=== PATIENT | male | born 1950 | race Caucasian/White ===

== ENCOUNTER 2019-03-08 12:20 | Day surgery (SDC) | payer MEDICARE, OTHER, SELFPAY ==
[2019-03-01 10:36] VITALS: BP 185/87; PULSE 62; RESP 16; TEMP 36.3; O2SAT 97; BMI 35.6
[2019-03-01 11:07] LABS: Hematocrit 37.4 % (40-54); Hemoglobin 12.4 g/dL (13.0-16.5); Mean Corp Hgb Conc 33.2 g/dL (32-36); Mean Corpuscular Hgb 28.5 pg (27.0-32.0); Mean Platelet Vol. 9.9 fl (6.2-12.0); Platelet Count 210 K/mm3 (150-450); RBC Distribution Width CV 14.2 % (11.6-14.6); RBC Distribution Width SD 44.3 fl (35.1-43.9); Red Blood Count 4.35 M/mm3 (4.6-6.2); White Blood Count 5.8 K/mm3 (4.4-11.0)
[2019-03-01 11:27] LABS: Anion Gap 7 (5-15); BUN 15 mg/dL (7-18); BUN/Creat Ratio 12.1 RATIO (10-20); Calcium,Total 9.6 mg/dL (8.5-10.1); Chloride 100 mmol/L (98-107); Creatinine, Serum 1.24 mg/dL (0.70-1.30); EST Glomerular Filtration Rate 61 mL/min (>60); Est Glom Filt Rate - Afr Amer 74 mL/min (>60); Glucose 97 mg/dL (74-106); Potassium 4.1 mmol/L (3.5-5.1); Sodium Level 136 mmol/L (136-145)
[2019-03-01 11:32] LABS: Hemoglobin A1c 7.3 % (4.2-6.3)
[2019-03-08] VITALS (9 sets, daily range): BP systolic 140–182; BP diastolic 68–92; PULSE 56–97; RESP 16–20; TEMP 36.2–37; O2SAT 92–100; BMI 35.6
[2019-03-08] MEDS: Lactated Ringers 1,000 ML 100 ML IV ×2 (12:55→17:03)
[2019-03-08 13:15] LABS: Bedside Glucose 86 mg/dL (70-110)
--- NOTE | 2019-03-08 15:23 | PCM.DC ---
- Discharge Diagnoses Current Active Problems: BPH with obstruction prosthetic scar tissue Reason(s) for Visit for Discharge Instructions: TURP You will use the following diet at home:: Regular Your food should be the consistency of: Regular Discharge Activity: Return to Normal Activity Instructions: Transurethral Resection of the Prostate (TURP): Home Recovery Allergies/Adverse Reactions: Allergies Fbuhsom-Hvs-Dvg Reductase Inhibitor Allergy (Unknown, Verified 03/08/19 12:56) Unknown Sulfa (Sulfonamide Antibiotics) Allergy (Unknown, Verified 03/08/19 12:56) Unknown levothyroxine sodium [From Synthroid] Allergy (Verified 03/08/19 12:56) mouth sores,diarrhea,stomach cramps morphine Adverse Reaction (Verified 03/08/19 12:56) Nausea/Vom/Diarrhea Medications to take at Discharge Gabapentin [Neurontin] 300 mg PO TID 12/30/15 Hydrochlorothiazide [Hctz] 50 mg PO DAILY 12/30/15 Losartan Potassium [Cozaar] 100 mg PO DAILY 12/30/15 Metoprolol Tartrate [Lopressor (Beta Lisa)] 12.5 mg PO QHS 12/30/15 glipiZIDE [Glucotrol] 5 mg PO BID 12/30/15 metFORMIN HCl [Glucophage] 1,000 mg PO BIDCM 12/30/15 aspirin 81 mg tablet,delayed release 81 mg PO QDAY 08/25/17 cholecalciferol (vitamin D3) 1,000 unit capsule 1,000 unit PO QDAY 08/25/17 mecobalamin (vitamin B12) 1,000 mcg disintegrating tablet,sublingual 1,000 mcg SUBLINGUAL QDAY 08/25/17 thyroid (pork) 60 mg tablet 60 mg PO MO 08/25/17 Lecithin, Soy [Lecithin] 400 mg PO DAILY 03/01/19 Naproxen Sodium [Aleve] 220 mg PO PRN PRN 03/01/19 Thyroid,Pork [[place] Thyroid] 120 mg PO SUTUWETHSA 03/01/19 Vitamin B Complex 1 ea PO DAILY 03/01/19 Ciprofloxacin [Cipro] 500 mg PO BID #14 tab 03/08/19 The following prescriptions were given: Ciprofloxacin [Cipro] 500 mg PO BID #14 tab Transmission Status: Pending to [facility] Primary Care Physician: Agustin Davenport MD [Primary Care Provider] - Test Results: Test results from this visit will be discussed in further detail at your follow-up appointment, if applicable. Please Follow Up With: Eugene Foreman MD When: 2 weeks.
[2019-03-08] MEDS: Cefazolin 2 GM in 0.9% Normal Saline 100 ML IV (15:33)
[2019-03-08] MEDS: Lubricating Jelly 60 GM Tube 30 GM TOPICAL (15:47)
--- NOTE | 2019-03-08 15:50 | PROS_PTH ---
PATIENT: DANI SHETH LOC: [facility] [place] U#:[id number] AGE/SX: 68/M ROOM: RE03/08/[address]: Dr. Eugene Foreman MD : [id number] BED: DIS: 03/09/2019 SPEC #: [id number] RECD: 03/09/19 09:03 STATUS: BIB JOSIE #: [id number] CLAUDIA: 03/08/19 15:[address]: Eugene Foreman DEPT: SURGICAL PATHOLOGY RECD BY: Johnny Carey ENTERED: 03/09/19 11:35 SP TYPE: TURP ALEXANDRE DR: Dr. Agustin Davenport MD Tissues: Prostate, NOS Procedures: Surgery Specimen Level IV HEADER OPERATION: Cystoscopy, TUR of prostate, [facility] PRE-OP DIAGNOSIS: BPH with lower urinary tract symptoms; incomplete bladder emptying; malignant neoplasm of lateral wall of bladder TISSUE SUBMITTED: Prostate tissue MICROSCOPIC DIAGNOSIS Prostate, transurethral resection: Benign nodular hyperplasia, glandular and stromal types. Chronic prostatitis. AM:yanira 03/10/19 MICROSCOPIC DESCRIPTION Slides are reviewed. GROSS DESCRIPTION Received is one container labeled with the patient's name and designated prostate tissue. The specimen consists of multiple irregular fragments of pink-castillo, rubbery, soft tissue that in aggregate weigh 19.4 gm and measure in aggregate 6 x 5 x 2.5 cm. Flight Teacher tissue is submitted in 12 cassettes. / SJ:yanira 03/09/19 TC:3 CPT: 54904
--- NOTE | 2019-03-08 16:45 | PCM.OPRPT ---
Report of Operation Date of Procedure: 03/08/19 Pre-Operative Diagnosis: BPH with obstruction Post-Operative Diagnosis: The same Surgery/Procedure Performed:: Transurethral resection of the prostate Description of Surgical Findings:: 68-year-old male taken back to the operating room after smooth induction of general anesthesia he was placed in dorsolithotomy position. Penis and testicles were prepped and draped in usual sterile fashion he has a history of a cystoscopy at the [facility] and they report that he had a false channel. Today I prepped and draped the penis in sterile fashion in the bladder with a 21 [place] rigid cystourethroscope and certainly enough which he passed through the membranous urethra is normal, bulbar urethra is normal sphincter was intact evaluate the verumontanum and there is a posterior fossa channel going below the verumontanum below the prostatic lobes and there is a bridging of the prostate tissue in the middle and then going above the bridge to go above the prosthetic tissue up over that into the bladder had significant obstruction and hypertrophy. So after doing the inspection I did look in the bladder with a 30 and 70 degree lens no tumors were seen within the bladder. I then switched over to the continuous-flow 26 [place] resectoscope and started resecting I resected first resected above the bridge between the bridging tissue of the left and right adenomatous tissue I resected this bridge clear until gone to the verumontanum I then marked the verumontanum and then resected the right lobe of the prostate and then resect the left lobe of the prostate it was a very large prostate along prostate fairly large resection after resected a significant amount of tissue I then looked at the sphincter still had some BPH blocking tissue at the sphincter area so I resected this and after I got this resected and the sphincter came together nicely had a nice intact sphincter nice open channel all the way up into the bladder we did a flow test had a good flow I then obtained hemostasis. All the chips were removed on the bladder. Put a three-way catheter in the bladder and continuous bladder irrigation and is taken back to the PACU in good condition. Also at the end of the case inspected the bladder and both the left and right ureter orifice were uninjured during the surgery. Type of Anesthesia:: General Drains: 22fr 3 way - Admit VTE Documentation VTE Present on Admission: No VTE Mechan Device Prophylaxis: SCD's
[2019-03-08 17:40] LABS: Bedside Glucose 71 mg/dL (70-110)
[2019-03-08 18:35] LABS: Bedside Glucose 109 mg/dL (70-110)
[2019-03-08] MEDS: 0.9% Normal Saline 1,000 ML 75 ML IV (19:23)
[2019-03-08] MEDS: Ciprofloxacin 400 MG/200 ML BAG 200 MG IV (22:31)
[2019-03-08] MEDS: Docusate Sodium 100 MG Capsule PO (22:31)
[2019-03-08] MEDS: Gabapentin 300 MG Capsule PO (22:31)
[2019-03-08] MEDS: Metoprolol Tartrate 25 MG Tablet 12.5 MG PO (22:31)
[2019-03-08 22:45] LABS: Bedside Glucose 170 mg/dL (70-110)
[2019-03-09 05:38] VITALS: BP 150/76; PULSE 48; RESP 18; TEMP 36.6; O2SAT 97
[2019-03-09] MEDS: Gabapentin 300 MG Capsule PO (05:41)
[2019-03-09] MEDS: Thyroid 60 MG Tablet 120 MG PO (05:42)
[2019-03-09 08:03] VITALS: BP 167/79; PULSE 56; RESP 18; TEMP 36.3; O2SAT 100
[2019-03-09] MEDS: metFORMIN HCl 1,000 MG Tablet 1000 MG PO (08:21)
[2019-03-09] MEDS: Docusate Sodium 100 MG Capsule PO (08:23)
[2019-03-09] MEDS: Losartan Potassium 100 MG Tablet PO (08:23)
[2019-03-09] MEDS: glipiZIDE 5 MG Tablet PO (08:24)
[2019-03-09] MEDS: Pantoprazole Sodium 40 MG Tablet PO (08:24)
[2019-03-09] MEDS: Ciprofloxacin 400 MG/200 ML BAG 200 MG IV (09:42)
== END 2019-03-09 11:40 | disposition home or self-care (01) ==
LOC: SDC 12:21 → AC 12:36 → MS2 16:48
PROVIDERS: Anesthesiology; Family Provider Family Medicine; PCP Family Medicine; Referring Provider Urology; Visit Provider Urology
PROC: (CPT 52601; principal; 2019-03-08 15:40)
DX: N40.1 Benign prostatic hyperplasia with lower urinary tract symptoms (principal); R39.14 Feeling of incomplete bladder emptying; N13.8 Other obstructive and reflux uropathy; C67.2 Malignant neoplasm of lateral wall of bladder; N41.1 Chronic prostatitis; I25.10 Atherosclerotic heart disease of native coronary artery without angina pectoris; I10 Essential (primary) hypertension; E11.9 Type 2 diabetes mellitus without complications; Z95.1 Presence of aortocoronary bypass graft; G47.33 Obstructive sleep apnea (adult) (pediatric); M79.7 Fibromyalgia; G25.81 Restless legs syndrome
CPT/HCPCS: 52601; 80048; 82962; 83036; 84443; 85027; 88305; 99251; J7030; J7120; G0463; J0744; J2405

== ENCOUNTER → 2019-03-23 18:24 | Outpatient (CLI) | payer MEDICARE, OTHER, SELFPAY ==
[2019-03-08 18:05] VITALS: BMI 35.6
== END ==
PROVIDERS: Family Provider Family Medicine; PCP Family Medicine; Referring Provider Nurse Practitioner Adult Health
DX: R82.998 Other abnormal findings in urine (principal)
CPT/HCPCS: 87086; 87088

== ENCOUNTER → 2020-05-22 08:08 | Outpatient (CLI) | payer MEDICARE, OTHER, SELFPAY ==
[2019-03-08 18:05] VITALS: BMI 35.6
--- NOTE | 2020-05-22 08:13 | RAD_ITS ---
STUDY: AIR-CONTRAST UPPER GI SERIES. REASON FOR EXAM: Male, 70 years old. GERD, ABD PAIN? HX BLADDER CA., NUMEROUS ABD SURGERIES, PROSTATE SURGERY X 2 FLUOROSCOPY TIME (if supplied): ( 40 seconds ) minutes/seconds. 22 images were obtained. TECHNIQUE: The patient ingested barium. Imaging of the esophagus, stomach and duodenum was then obtained. COMPARISON: None. FINDINGS: The esophagus is unremarkable. There is no evidence of obstruction. No mass lesion is seen. There is no evidence of gastroesophageal reflux. The stomach and duodenum are unremarkable. No evidence of ulceration. RAD/Upper GI Dual Contrast IMPRESSION: Unremarkable air contrast upper GI series. Electronically Signed: Antony Figueroa MD at 9:36 EST , Service support ,
== END ==
PROVIDERS: PCP Family Medicine; Referring Provider Nurse Practitioner Adult Health; Visit Provider Nurse Practitioner Adult Health
DX: K21.9 Gastro-esophageal reflux disease without esophagitis (principal); R10.9 Unspecified abdominal pain
CPT/HCPCS: 74246

== ENCOUNTER → 2020-07-01 11:01 | Outpatient (CLI) | payer MEDICARE, OTHER, SELFPAY ==
[2019-03-08 18:05] VITALS: BMI 35.6
[2020-07-01 12:34] LABS: PSA,Total - Annual Screen 0.98 ng/mL (0.00-4.00)
== END ==
PROVIDERS: PCP Family Medicine; Referring Provider Urology; Visit Provider Urology
DX: Z12.5 Encounter for screening for malignant neoplasm of prostate (principal)
CPT/HCPCS: 36415; 84153; G0103

== ENCOUNTER 2020-10-20 18:37 | Inpatient (IN) | payer MEDICARE, OTHER, SELFPAY ==
[2020-10-20] VITALS (17 sets, daily range): BP systolic 98–192; BP diastolic 71–131; PULSE 58–135; RESP 12–30; TEMP 36.3–36.6; O2SAT 70–100; BMI 34.5; BMI 34.2
--- NOTE | 2020-10-20 18:43 | EKG12_ITS ---
Test Reason : DYSRHYTHMIA Blood Pressure : / mmHG Vent. Rate : 123 BPM Atrial Rate : 144 BPM P-R Int : 000 ms QRS Dur : 124 ms QT Int : 320 ms P-R-T Axes : 000 049 206 degrees QTc Int : 458 ms Atrial fibrillation with rapid ventricular response with premature ventricular or aberrantly conducte d complexes Left bundle branch block Abnormal ECG Confirmed by EFREN DORANTES, MEDARDO ([id number]), loan expeditor CECILIA AYON ([id number]) on 10/23/2020 1:20:01 PM Referred By: MATTHEW Confirmed By:MEDARDO SCHWARTZ MD
--- NOTE | 2020-10-20 18:45 | ED.VIS.DYS ---
HPI History of Present Illness Chief Complaint: Shortness of Breath Detail of Chief Complaint: Severe shortness of breath. Informant: patient and spouse/S.O. Onset/Context/Timing Onset: Today Context: sudden Timing: Continuous Quality: Positive for Orthopnea Current Severity: Severe Maximum Severity: Severe Worsened by: Lying flat Relieved by: Nothing Associated Symptoms cough Chest Pain: Positive for None Narrative Narrative: 70-year-old male in severe respiratory distress with a pulse ox in the mid to high 60s. He was admitted neatly placed on the monitor and oxygen. states he had an episode like this 2 days ago but it resolved so he did not come in today he became suddenly short of breath. Denies any chest pain. No fevers. No significant cough. No nausea or vomiting. No diarrhea or melena. He does have an extensive cardiac history with multiple MIs, cardiac stents and prior CABG. He also has diabetes and bladder cancer. He is never had a DVT or PE. No recent risk factors. No recent hospitalization. PE Risk Factors: Negative for Cancer, OCP + Smoking + > 35, Prior DVT or PE, Recent immobilization, Recent surgery and Recent travel Prior similar symptoms: No Recent Illness/Hospitalization: No PFSH PFSH Home Medications aspirin 81 mg PO DAILY 10/20/20 [History Last Taken Unknown] cholecalciferol (vitamin D3) [Vitamin D3] 25 mcg PO DAILY 10/20/20 [History Last Taken Unknown] gabapentin 600 mg PO QHS 10/20/20 [History Last Taken Unknown] glipizide 20 mg PO DAILY 10/20/20 [History Last Taken Unknown] lecithin 1,200 mg PO DAILY 10/20/20 [History Last Taken Unknown] losartan 150 mg PO DAILY 10/20/20 [History Last Taken Unknown] metformin 1,000 mg PO BID 10/20/20 [History Last Taken Unknown] metoprolol tartrate 25 mg PO DAILY 10/20/20 [History Last Taken Unknown] pantoprazole 40 mg PO DAILY 10/20/20 [History Last Taken Unknown] thyroid (pork) [[place] Thyroid] 120 mg PO DAILY 10/20/20 [History Last Taken Unknown] vitamin [id number] acid 1 tab PO DAILY 10/20/20 [History Last Taken Unknown] Allergy/AdvReac Type Severity Reaction Status Date / Time No Known Allergies Allergy Verified 10/20/20 18:42 Social History Smoking Status: Never smoker ROS ROS ED ROS Narrative No recent illness. Review of Systems ROS Unobtainable: Denies due to encephalopathy Constitutional Constitutional ED: Denies chills or fever(s) Eyes Eyes: Denies change in vision ENT ENT ED: Denies ear pain or sore throat Cardiovascular Cardiovascular: Reports orthopnea; Denies chest pain Respiratory/Chest Respiratory/Chest: Reports cough, dyspnea and orthopnea; Denies dyspnea on exertion or sputum Gastrointestinal Gastrointestinal: Denies abdominal pain, diarrhea, nausea or vomiting Genitourinary Genitourinary ED: Denies dysuria or hematuria Musculoskeletal Musculoskeletal: Denies myalgias Integumentary Denies rash Neurologic Neurologic: Denies headache(s) Psychiatric Psychiatric: Denies depression Endocrine Endocrinology: Denies polyuria Hematologic/Lymphatic Hematologic/Lymphatic: Denies easy bruising Allergic/Immunologic Allergic/Immunologic ED: Denies urticaria EXAM Physical Exam Narrative Exam Narrative: Older male severe respiratory distress. Initial blood pressure 137/131. He is diaphoretic. He is pale. at bedside. H EENT exam unremarkable. Neck nontender. Lungs Rales throughout both sides consistent with CHF. Heart tachycardic 135. Abdomen soft nontender normal bowel sounds no peritoneal signs. Skin pale diaphoretic. Extremities moves all 4. No edema. No calf tenderness. Neurologically is awake alert moving all 4 extremities. Const Vital Signs: 10/20/20 18:38 10/20/20 18:40 10/20/20 18:47 Temperature 98 F 98 F Temperature Source Temporal Temporal Pulse Rate 135 H 113 H Respiratory Rate 29 H 30 H Respiratory Effort Short of Breath Respiratory Depth Deep Respiratory Pattern Tachypnea Blood Pressure 137/131 H 137/131 H Blood Pressure Mean 133 133 Pulse Ox 70 82 95 Oxygen Delivery Method Room Air Room Air Bi-pap Fraction of Inspired Oxygen (FIO2) 100 10/20/20 19:04 10/20/20 19:10 10/20/20 19:16 Temperature Temperature Source Pulse Rate 126 H 121 H Respiratory Rate 28 H Respiratory Effort Respiratory Depth Respiratory Pattern Blood Pressure 192/112 H 147/106 H 156/110 H Blood Pressure Mean 138 119 125 Pulse Ox 96 95 Oxygen Delivery Method Bi-pap Bi-pap Fraction of Inspired Oxygen (FIO2) 100 10/20/20 19:20 10/20/20 19:39 10/20/20 19:46 Temperature Temperature Source Pulse Rate 110 H 81 73 Respiratory Rate 24 H 23 H 23 H Respiratory Effort Respiratory Depth Respiratory Pattern Blood Pressure 159/111 H 98/76 128/71 H Blood Pressure Mean 127 83 90 Pulse Ox 99 95 Oxygen Delivery Method Bi-pap Bi-pap Fraction of Inspired Oxygen (FIO2) 90 75 10/20/20 20:01 Temperature Temperature Source Pulse Rate 71 Respiratory Rate 24 H Respiratory Effort Respiratory Depth Respiratory Pattern Blood Pressure 121/81 H Blood Pressure Mean 94 Pulse Ox 96 Oxygen Delivery Method Bi-pap Fraction of Inspired Oxygen (FIO2) 70 Positive well nourished and well developed General Appearance ED: well developed HEENT Reports moist mucous membranes atraumatic; Negative for trauma or tenderness Eyes PERRL and EOMs intact bilaterally Neck no lymphadenopathy, supple, no meningeal signs and no JVD General: Negative for tenderness Resp Auscultation: rales Cardio Cardio Narrative: Respiratory distress. Excessive respiratory rate. Rales bilaterally. GI non-tender, non-distended and no masses Auscultation: normoactive bowel sounds Palpation: soft; Negative for tender Back/Spine normal to inspection; Negative for no CVA tenderness Extremity normal to inspection General Extremety ED: Negative for edema or tenderness General Extremity: Negative for edema Neuro oriented x3 Sensorium / Orientation: alert, oriented to person, oriented to place and oriented to time Motor Exam: strength 5/5 throughout Psych mental status grossly normal Skin Skin Narrative: Pale and diaphoretic. Lesions: no lesions Rashes: no rashes MDM MDM MDM Narrative Medical decision making narrative: Patient hypoxic in severe respiratory distress. Exam and history consistent with CHF. Cardiac work-up is being pursued. He is being placed on BiPAP. After reviewing his chest x-ray has been given 60 of Lasix will be started on nitroglycerin drip. Multiple repeat exams patient continues to improve on BiPAP. He was started on nitroglycerin drip. He was given IV Lasix. He was also given 1 dose of Cardizem which converted him from A. fib RVR to sinus rhythm. He is doing much better. The nitro drip was stopped when his blood pressure systolically was around 100. Patient is much much improved. He will be admitted to the ICU. Impressions: Acute congestive heart failure Respiratory failure Hypoxia History of AL, CAD, CABG, cardiac stents History of diabetes Critical care time 40 minutes. Lab Data Attestation: I reviewed the patient's lab results. Lab results narrative: CBC White count of 15. Hemoglobin 15. Chemistries unremarkable gap elevated 16 creatinine 1.64. Troponin elevated 848 BNP elevated 766. Consistent with CHF Labs: Laboratory Results - last 24 hr 10/20/20 10/20/20 10/20/20 18:47 18:47 18:47 WBC 15.1 H RBC 5.71 Hgb 15.3 Hct 49.3 MCV 86.3 MCH 26.8 L MCHC 31.0 L RDW Std Deviation 47.7 H RDW Coeff of Dexter 15.3 H Plt Count 276 MPV 11.4 Immature Gran % (Auto) 0.100 Neut % (Auto) 39.5 L Lymph % (Auto) 48.9 H [place] % (Auto) 10.0 Eos % (Auto) 1.0 Baso % (Auto) 0.5 Absolute Neuts (auto) 6.0 Absolute Lymphs (auto) 7.39 H Nucleated RBC % 0 Differential Comment SCANNED Diff Path Review May foll PT INR APTT Sodium 138 Potassium 4.1 Chloride 103 Carbon Dioxide 19.0 L Anion Gap 16 H BUN 14 Creatinine 1.64 H Estim Creat Clear Calc 41.31 Est GFR (MDRD) Af Amer 53 L Est GFR (MDRD) Non-Af 44 L BUN/Creatinine Ratio 8.5 L Glucose 262 H Calcium 9.4 Troponin I High Sens 840.7 H* B-Natriuretic Peptide 766.7 H 10/20/20 10/20/20 18:55 18:55 WBC RBC Hgb Hct MCV MCH MCHC RDW Std Deviation RDW Coeff of Dexter Plt Count MPV Immature Gran % (Auto) Neut % (Auto) Lymph % (Auto) [place] % (Auto) Eos % (Auto) Baso % (Auto) Absolute Neuts (auto) Absolute Lymphs (auto) Nucleated RBC % Differential Comment Diff Path Review PT 12.8 INR 1.0 APTT 23.3 L Sodium Potassium Chloride Carbon Dioxide Anion Gap BUN Creatinine Estim Creat Clear Calc Est GFR (MDRD) Af Amer Est GFR (MDRD) Non-Af BUN/Creatinine Ratio Glucose Calcium Troponin I High Sens B-Natriuretic Peptide Radiography Chest X-Ray - ED: 1 View, Read by ED Physician and CHF Diagnostic Testing: Radiology Impression Chest X-Ray 10/20/20 18:48 IMPRESSION: Diffuse bilateral interstitial and airspace opacities may represent edema and/or infection. Borderline cardiomegaly. Electronically Signed: Clemente Hernandez MD at 19:18 EDT Tel , Service support , Consistent with congestive heart failure Rhythm Strip Rhythm Strip: A-fib Rate: 135 EKG Initial EKG: Attestation: I personally reviewed and interpreted this EKG as follows: Interpretation: No Acute Injury Pattern, Atrial Fibrillation and LBBB Comments: Acute atrial fibrillation with rapid ventricular rate with aberrantly conducted complexes. Left bundle branch block. Critical Care Time Critical Care Time: Yes Critical care time (excluding procedures): 30-74 minutes, Including time spent:, Discussing w/Patient &/or Family/Primary Products Inspectors, Discussing w/Consultants, Arranging Admission or Transfer and Performing Direct Patient Care at Bedside Discharge Plan Triage Chief Complaint: Shortness of Breath ED Provider: Jose R Mccrary Dx/Rx/DC Orders Prescriptions: No Action lecithin 1,200 mg Capsule 1,200 mg PO DAILY RF: 0 glipizide 10 mg Tablet 20 mg PO DAILY RF: 0 pantoprazole 40 mg Tablet,Delayed Release (Dr/Ec) 40 mg PO DAILY RF: 0 metformin 1,000 mg Tablet 1,000 mg PO BID RF: 0 gabapentin 300 mg Capsule 600 mg PO QHS RF: 0 aspirin 81 mg Tablet 81 mg PO DAILY RF: 0 losartan 100 mg Tablet 150 mg PO DAILY RF: 0 metoprolol tartrate 25 mg Tablet 25 mg PO DAILY RF: 0 cholecalciferol (vitamin D3) [Vitamin D3] 25 mcg (1,000 unit) Tablet 25 mcg PO DAILY RF: 0 thyroid (pork) [[place] Thyroid] 60 mg Tablet 120 mg PO DAILY RF: 0 vitamin A86-imotp acid 500-400 mcg Tablet 1 tab PO DAILY RF: 0 Primary Care Provider: Elver Rosario Disposition Disposition: Home, Self Care
--- NOTE | 2020-10-20 18:48 | RAD_ITS ---
INDICATION: chest pain EXAMINATION/TECHNIQUE: X-RAY - XR Chest 1 View COMPARISON: None. FINDINGS: Diffuse bilateral interstitial and airspace opacities. Sternal cerclage wires and vascular clips are present from a prior sternotomy and coronary artery bypass graft procedure (CABG). The heart is borderline enlarged. No pleural effusion or pneumothorax. No acute osseous abnormalities. Partially visualized left shoulder arthroplasty. RAD/Chest 1 View (Portable) IMPRESSION: Diffuse bilateral interstitial and airspace opacities may represent edema and/or infection. Borderline cardiomegaly. Electronically Signed: Clemente Hernandez MD at 19:18 EDT Tel , Service support ,
[2020-10-20] MEDS: Furosemide 100 MG/10 ML Vial 60 MG IV (18:58)
[2020-10-20 19:05] LABS: Absolute Lymphocyte Count 7.39 X10^3/uL (0.83-4.51); Basophil# 0.07 X10^3/uL; Basophil% 0.5 % (0-1); Eosinophil# 0.15 X10^3/uL; Hematocrit 49.3 % (40-54); Hemoglobin 15.3 g/dL (13.0-16.5); Lymphocyte # 7.39 X10^3/ul (0.83-4.51); Lymphocyte % 48.9 % (19-41); Mean Corpuscular Hgb 26.8 pg (27.0-32.0); Mean Corpuscular Volume 86.3 fL (80-94); Mean Platelet Vol. 11.4 fl (6.2-12.0); Monocyte# 1.51 X10^3/uL; NRBC Flagged by Analyzer 0 % (0-5); Neutrophil # 5.98 X10^3/uL (2.7-7.7); Neutrophil % 39.5 % (47-70); POSITIVE DIFFERENTIAL YES; POSITIVE MORPHOLOGY YES; Platelet Count 276 K/mm3 (150-450); RBC Distribution Width CV 15.3 % (11.6-14.6); RBC Distribution Width SD 47.7 fl (35.1-43.9); Red Blood Count 5.71 M/mm3 (4.6-6.2); White Blood Count 15.1 K/mm3 (4.4-11.0)
[2020-10-20] MEDS: Nitroglycerin Infusion 250 ML 6 MG CONT INF (19:06)
[2020-10-20 19:10] LABS: Prothrombin Time (Protime)PT. 12.8 SECONDS (11.7-14.9)
[2020-10-20 19:12] LABS: BNP,B-Type NATRIURETIC PEPTIDE 766.7 pg/mL (0-100)
[2020-10-20 19:18] LABS: Differential Indicated SCAN CRITERIA MET
[2020-10-20 19:21] LABS: Anion Gap 16 (5-15); BUN 14 mg/dL (7-18); BUN/Creat Ratio 8.5 RATIO (10-20); Calcium,Total 9.4 mg/dL (8.5-10.1); Chloride 103 mmol/L (98-107); Creatinine, Serum 1.64 mg/dL (0.70-1.30); EST Glomerular Filtration Rate 44 mL/min (>60); Est Glom Filt Rate - Afr Amer 53 mL/min (>60); Estimated Creatinine Clearance 41.31 ml/min; Glucose 262 mg/dL (74-106); Potassium 4.1 mmol/L (3.5-5.1); Sodium Level 138 mmol/L (136-145)
[2020-10-20] MEDS: dilTIAZem 25 MG/5 ML Vial 20 MG IV BOLUS (19:26)
--- NOTE | 2020-10-20 19:41 | EKG12_ITS ---
Test Reason : REPEAT EKG Blood Pressure : / mmHG Vent. Rate : 076 BPM Atrial Rate : 076 BPM P-R Int : 212 ms QRS Dur : 100 ms QT Int : 438 ms P-R-T Axes : 060 012 137 degrees QTc Int : 492 ms Sinus rhythm with 1st degree A-V block ST & T wave abnormality, consider lateral ischemia Abnormal ECG Confirmed by EFREN DORANTES, MEDARDO ([id number]), magazine editor CECILIA AYON ([id number]) on 10/23/2020 1:20:19 PM Referred By: MATTHEW Confirmed By:MEDARDO SCHWARTZ MD
[2020-10-20 19:53] LABS: Troponin-I HS 840.7 pg/mL (3.0-78.5)
[2020-10-20 20:02] LABS: Differential Comment SCANNED
--- NOTE | 2020-10-20 20:36 | PCM.HOSP.N ---
Addendum Addendum: ATTENDING PHYSICIAN NOTE: History and Physical: Chief Complaint: Dyspnea, nausea, dry heaves, diaphoresis. The patient is a 70 y/o M w/ PMHx: CAD s/p multiple PCI, Hx MIs, HTN, HLD, PRAKASH on CPAP q HS, Obesity, PAF, Hypothyroidism, GERD, Diabetes mellitus type II who presents to the [facility] ED on 10/20/20 w/ history of ongoing dyspnea starting the past Wednesday with episodes of severe dyspnea without cough resulting in nausea with dry heaves and diaphoresis however these seem to subside but again occurred prior to ED presentation noted to be more severe with respiratory distress with increased work of breathing accessory muscle usage prompting ED evaluation. Patient does note the episodes seem to be worse at night. Patient reports that these episodes do not appear to be related with exertion. He notes no recent weight gain or edema and has been able to lay flat. He does report with these episodes some chest discomfort described as midsternal pressure, 3-5 out of 10 in severity, denies upon current presentation. Allergies: No known drug allergies. Home medications: Vitamin B12/folic acid 1 tab p.o. daily Pantoprazole 40 mg p.o. daily Lecithin 1200 mg p.o. daily Metoprolol tartrate 25 mg p.o. daily Vitamin D3 25 mcg p.o. daily Thyroid [place] 120 mg p.o. daily Losartan 150 mg p.o. daily Glipizide 20 mg p.o. daily Metformin 1000 mg p.o. twice daily Gabapentin 600 mg p.o. nightly Social Hx: Patient resides with his , no tobacco use history, drinks 1-2 drinks including beer, wine or mixed drinks daily. PSurgHx: CABG x4, several PCI, bilateral shoulder rotator cuff repair, left shoulder total replacement, cholecystectomy, bilateral carpal tunnel surgery, TURP x2, bladder surgery, left rib tumor resection. Family Hx: Patient notes a maternal family history of asthma. Patient denies any marked paternal family history including heart disease, diabetes or cancer. Admission Review of Systems: CONSTITUTIONAL: No weight loss, fever, chills, + weakness or fatigue. HEENT: Eyes: No visual loss, blurred vision, double vision or yellow sclerae. Ears, Nose, Throat: No hearing loss, sneezing, congestion, runny nose or sore throat. SKIN: No rash or itching, lesions, wounds. CARDIOVASCULAR: + chest pain, chest pressure or chest discomfort, palpitations, No edema, orthopnea, syncopal events. RESPIRATORY: + shortness of breath, No cough or sputum, wheezing, hemoptysis. GASTROINTESTINAL: No anorexia, nausea, vomiting or diarrhea, abdominal pain, melena, BRBPR. GENITOURINARY: No dysuria, frequency, urgency or retention. NEUROLOGICAL: No headache, dizziness, syncope, paralysis, ataxia, numbness or tingling in the extremities, focal weakness, change in bowel or bladder control, seizure. MUSCULOSKELETAL: + muscle, back pain, joint pain or stiffness. HEMATOLOGIC: + anemia, bleeding or bruising. LYMPHATICS: No enlarged nodes. No history of splenectomy. PSYCHIATRIC: No history of depression or anxiety. ENDOCRINOLOGIC: No reports of sweating, cold or heat intolerance. No polyuria or polydipsia. ALLERGIES: No history of asthma, hives, eczema or rhinitis. Labs: CBC with WC 15.1, hemoglobin 15.3, platelet 276 with increased lymphocytes. Unremarkable coags BMP with carbon oxide 19, anion gap 16, BUN/creatinine 14/1.64, glucose 262 troponin high-sensitivity 840.7 BNP 766.7 Imaging: Chest x-ray with diffuse bilateral interstitial and airspace opacities suggestive of edema, flash pulmonary, borderline cardiomegaly. EKG: Initial EKG with atrial fibrillation with RVR with repeat following Cardizem with noted conversion to sinus rhythm with no acute evidence of ischemia. VS: Initial presentation with T 98, heart rate 135, BP 137/131 however did increase to 192/112 transiently, respiratory rate 20, initially 70% on room air with transition to BiPAP with most recent as noted conversion to sinus rhythm with heart rate 71, BP 121/81, respiratory rate 24, 96% on 70% BiPAP. Physical Examination: General: awake, alert, oriented x 3, less fatigued, BiPAP in place, remains cooperative, seated upright in the ED bed still increased work of breathing and evident respiratory distress but improving. Skin: normal color, normal turgor, no icterus, no cyanosis, sweating. HEENT: AT/NC, EOMI, PERRLA, dry MM, BiPAP in place, no obvious carotid bruits, difficult to assess JVD secondary to very thickened neck. Lungs: Diffusely diminished, Rales bilaterally mid to low bases, increased work of breathing, accessory muscle usage, evident distress, BiPAP in place although some improvement since initial ED presentation. Heart: Currently converted, regular rate and rhythm; no gallop, rub audible. Abdomen: soft, obese, NTTP, ND, distant normal BS, no obvious HSM but habitus makes examination difficult. Extremities: no cyanosis, clubbing, or edema. Neurological: patient awake, alert, oriented as noted; cognitive function improving, near baseline intact; pupils equally reactive to light and accomodation; cranial nerves II-XII grossly normal, moving all 4 extremities, no focal deficits, strength severely global decrease secondary to acute presentation. Psychiatric: affect appears fatigued, evident distress is noted, no acute evidence of depressive or anxiety feelings. Assessment and Plan: The patient is a 70 y/o M w/ PMHx: CAD s/p multiple PCI, Hx MIs, HTN, HLD, PRAKASH on CPAP q HS, Obesity, PAF, Hypothyroidism, GERD, Diabetes mellitus type II who presents to the [facility] ED on 10/20/20 w/ history of ongoing dyspnea starting the past Wednesday with episodes of severe dyspnea without cough resulting in nausea with dry heaves and diaphoresis however these seem to subside but again occurred prior to ED presentation noted to be more severe with respiratory distress with increased work of breathing accessory muscle usage prompting ED evaluation. 1. Acute Hypoxic Respiratory Failure secondary to Acute Decompensated CHF, Unclear Type with suspected flash pulmonary edema with elevated cardiac enzymes, suspected NSTEMI: Patient administered IV lasix in the ED, will admit to the ICU, maintain on BIPAP, maintain on cardiac telemetry, obtain cardiac enzyme series, obtain serial EKGs, continue IV lasix diuresis, monitor I/Os, maintain on intake restriction, continue medical therapy, obtain TSH and magnesium level, continue heparin drip. Obtian ECHO. Cardiology consulted, pending. Pattern Chart Writer consulted, pending. 2. Paroxysmal atrial fibrillation with RVR: EKG in ED w/ atrial fibrillation w/ RVR however eventually converted to sinus rhythm. Patient administered Cardizem bolus in ED. Will maintain on telemetry, obtain cardiac enzyme serial set, obtain magnesium level, obtain ECHO, obtain TSH level. CHADs scoring appropriate for anticoagulation start at this time w/ lovenox to coumadin bridge. We will continue patient metoprolol. Will administer heparin drip pending case management/social work evaluation for NOACs as given presentation as noted #1 may also require cardiac catheterization. Cardiology consulted, pending. 3. Hypertensive emergency: Associate with #1, #2, clinically improved, blood pressures improving, transiently on nitroglycerin which has been discontinued given usage of Cardizem bolus, pressure now 121/81, will continue patient home regimen, as needed IV hydralazine. Additional Co-morbidities: CAD: Status post CABG x4 and PCI, continue aspirin, heparin drip, metoprolol, losartan, not on statin therapy with FLP pending as noted. Hyperlipidemia: Continue home statin regimen. AM FLP. Diabetes mellitus type II with neuropathy: Hold oral home regimen, once respiratory status improved allow ADA diet, accu checks w/ ISS, continue patient home gabapentin regimen. Hypothyroidism: Continue home thyroid supplementation regimen, TSH pending. PRAKASH: BiPAP nightly however currently continuous given presentation as noted. Obesity: Weight loss and lifestyle changes encouraged. GERD: Continue PPI. DVT prophylaxis: SCDs, heparin drip as noted. CODE status: Patient GERMAIN is his son Zak and living will is currently in place. Discussed CODE status at length including difference between FULL code, DNR-CCA and DNR-CC status. Following discussions about the differences in these status, requested no CPR chest compressions but amenable to short-term intubation specifically per healthcare power of periodontist. Advanced Care Planning Face to Face Time: 16 minutes. Visit Charges Inpatient E&M: 23436 Init Hosp L3 Procedures Hospitalists Procedures: 83789 Advncd Care Plan 30 Min
[2020-10-20 20:57] LABS: Partial Thromboplast Time 23.3 Seconds (24.1-36.2)
--- NOTE | 2020-10-20 21:36 | ECHOCS_ITS ---
Reason For Study: CHF Procedure This was a 2D Doppler, Color Flow transthoracic echocardiogram. The study was technically difficult. Contrast injection was performed. Exam performed portable in ICU/CCU. Left Ventricle Mild segmental systolic dysfunction (see wall motion). The estimated ejection fraction is 45 %. Diastolic function is indeterminate. Mid-Inferior: Hypokinetic. Mid-inferoseptal : Hypokinetic. [place] : Hypokinetic. Right Ventricle Normal RV size. Normal systolic function. Atria Normal left atrium. Normal right atrium. No doppler evidence for ASD. Mitral Valve There is no mitral annular calcification. Normal mitral valve. Mild-Moderate (1-2+) mitral valve insufficiency. Tricuspid Valve Normal tricuspid valve. Trivial tricuspid valve insufficiency. Unable to estimate RV systolic pressure due to insufficient tricuspid regurgitant envelope. Aortic Valve Trisinus/trileaflet aortic valve. Mild focal aortic valve calcification. Mild (1+) aortic valve insufficiency. Pulmonic Valve The pulmonic valve is not well visualized. Mild (1+) pulmonic valve insufficiency. Great Vessels Mildly dilated aortic root. Pericardium/Pleural No pericardial effusion. Medication Diluted definity 5ml given slow IV push to enhance endocardial definition. MMode/2D Measurements & Calculations Ao root diam: 4.0 cm LAV(MOD-sp4): 54.7 ml LA dimension: 3.7 cm LA A4 area: 19.4 cm2 RA A4 area: 17.0 cm2 Time Measurements MV dec time: 0.17 sec Doppler Measurements & Calculations MV E max samy: 133.1 cm/sec Lat Peak E' Samy: 7.4 cm/sec Med Peak E' Samy: 3.9 cm/sec MV A max samy: 74.2 cm/sec E/E' lat: 17.9 E/E' med: 34.4 MV E/A: 1.8 MV V2 max: 133.9 cm/sec MV P1/2t max samy: 133.9 cm/sec Ao V2 max: 104.8 cm/sec MV max P.2 mmHg MV P1/2t: 91.2 msec Ao max P.4 mmHg MV V2 mean: 65.4 cm/sec MV dec slope: 430.1 cm/sec2 MV mean P.1 mmHg MV V2 VTI: 37.2 cm MVA(P1/2t): 2.4 cm2 LV V1 max: 98.9 cm/sec PA V2 max: 87.6 cm/sec LV V1 max P.9 mmHg ECHO/Echo Complete W/ Contrast Interpretation Summary The study was technically difficult. Contrast injection was performed. Mild segmental systolic dysfunction (see wall motion). The estimated ejection fraction is 45 %. Mild-Moderate (1-2+) mitral valve insufficiency. Trivial tricuspid valve insufficiency. Mild focal aortic valve calcification. Mild (1+) aortic valve insufficiency. Mild (1+) pulmonic valve insufficiency. Mildly dilated aortic root. Unable to estimate RV systolic pressure due to insufficient tricuspid regurgita nt envelope. Diastolic function is indeterminate. Ordering Physician: Paulette Guerrero Referring Physician: MD Elver Rosario Performed By: Michael Garcia RCS
[2020-10-20] MEDS: Pantoprazole Sodium 40 MG Tablet PO (22:58)
[2020-10-20] MEDS: Heparin Injection (Vial) 5,000 UNIT/ML VIAL 8000 UNIT IV (23:00)
[2020-10-20] MEDS: HEPARIN/D5w 25,000 UNITS 25,000 UNITS/250 ML IV.SOLN. 15 UNITS IV (23:01)
[2020-10-20] MEDS: Gabapentin 600 MG Tablet PO (23:16)
[2020-10-20] MEDS: Insulin Lispro 100 UNIT/ML INSULN.PEN SC (23:20)
[2020-10-20 23:31] LABS: Bedside Glucose 220 mg/dL (70-110)
[2020-10-21] VITALS (29 sets, daily range): BP systolic 124–184; BP diastolic 54–103; PULSE 57–98; RESP 12–20; TEMP 36.3–36.7; O2SAT 93–100
[2020-10-21 01:09] LABS: Troponin-I HS 3167.7 pg/mL (3.0-78.5)
[2020-10-21 02:24] LABS: M R Staph aureus DNA By PCR Negative (Negative); Probe Check PASS; Specimen Processing Control PASS
[2020-10-21 04:46] LABS: Absolute Neutrophil Count 7.5 X10^3/uL (2.0-7.7); Basophil# 0.02 X10^3/uL; Basophil% 0.2 % (0-1); Eosinophil# 0.03 X10^3/uL; Eosinophils% 0.3 % (0-5); Hematocrit 39.2 % (40-54); Hemoglobin 12.5 g/dL (13.0-16.5); Lymphocyte % 16.7 % (19-41); Mean Corp Hgb Conc 31.9 g/dL (32-36); Mean Corpuscular Hgb 27.1 pg (27.0-32.0); Mean Corpuscular Volume 84.8 fL (80-94); Mean Platelet Vol. 10.3 fl (6.2-12.0); Monocyte# 0.88 X10^3/uL; Monocyte% 8.7 % (0-10); NRBC Flagged by Analyzer 0 % (0-5); Neutrophil % 73.9 % (47-70); Platelet Count 198 K/mm3 (150-450); RBC Distribution Width CV 15.2 % (11.6-14.6); RBC Distribution Width SD 46.7 fl (35.1-43.9); Red Blood Count 4.62 M/mm3 (4.6-6.2); White Blood Count 10.2 K/mm3 (4.4-11.0)
[2020-10-21 04:59] LABS: Partial Thromboplast Time 120.3 Seconds (24.1-36.2)
--- NOTE | 2020-10-21 05:00 | RAD_ITS ---
STUDY: X-RAY CHEST REASON FOR EXAM: Male, 70 years old. Dyspnea TECHNIQUE: Single AP portable view of the chest. COMPARISON: 10/20/2020 FINDINGS: Status post median sternotomy. The lungs are clear and expanded. There is no demonstrated pleural abnormality. Normal size heart. Normal mediastinum and bj. Normal visualized pulmonary arteries. Normal visualized aortic arch and descending thoracic aorta. Normal visualized thoracic spine. Status post left shoulder reverse arthroplasty. There is no demonstrated abnormality of the visualized soft tissue structures of the upper abdomen. RAD/Chest 1 View (Portable) IMPRESSION: No active disease. Electronically Signed: Eze Albert MD at 15:22 EDT Tel , Service support ,
[2020-10-21 05:15] LABS: ALB/GLOB Ratio 1.1 RATIO (0.9-2.4); AST(SGOT) 45 U/L (15-37); Alanine Aminotransfer ALT/SGPT 23 U/L (16-61); Albumin, Serum 3.7 g/dL (3.2-5.0); Alkaline Phosphatase 72 U/L (45-117); Anion Gap 8 (5-15); BUN 16 mg/dL (7-18); BUN/Creat Ratio 11.1 RATIO (10-20); Calcium,Total 8.8 mg/dL (8.5-10.1); Chloride 104 mmol/L (98-107); Cholesterol 199 mg/dL (200); Creatinine, Serum 1.44 mg/dL (0.70-1.30); EST Glomerular Filtration Rate 51 mL/min (>60); Est Glom Filt Rate - Afr Amer 62 mL/min (>60); Estimated Creatinine Clearance 47.05 ml/min; Globulin 3.4 g/dL (2.2-4.2); Glucose 168 mg/dL (74-106); High Density Lipoprotein 42 mg/dL; Potassium 4.5 mmol/L (3.5-5.1); Protein, Total 7.1 g/dL (6.4-8.2); Sodium Level 141 mmol/L (136-145); T4 Free Direct 0.73 ng/dL (0.76-1.46); Thyroid Stim Hormone (TSH) 1.18 uIU/mL (0.358-3.74); Triglycerides 142 mg/dL; Very Low Density Lipoprotein 28 mg/dL (5-40)
[2020-10-21] MEDS: Metoprolol Tartrate 25 MG Tablet PO ×2 (05:16→21:48)
--- NOTE | 2020-10-21 05:55 | EKG12_ITS ---
Test Reason : SOB Blood Pressure : / mmHG Vent. Rate : 075 BPM Atrial Rate : 075 BPM P-R Int : 204 ms QRS Dur : 132 ms QT Int : 448 ms P-R-T Axes : 033 043 125 degrees QTc Int : 500 ms Normal sinus rhythm Left bundle branch block Abnormal ECG No previous ECGs available Confirmed by KALPANA DORANTES, OMAR ([id number]), subeditor ANTELMO THOMPSON ([id number]) on 10/29/2020 7:53:07 AM Referred By: JAMESON Confirmed By:OMAR ACUNA MD
--- NOTE | 2020-10-21 07:21 | EX.PCM.CONCC ---
HPI Consult Data Date of Consult: 10/21/20 HPI Narrative HPI Narrative: DANI SHETH is a 70 M, with past medical history listed below, who presented to [facility] on 10/20/2020 secondary to sudden onset of shortness of breath. Patient reportedly had had similar type episodes for the past couple of days for which he used Mylanta and Aleve. Patient had not reported any chest pain, fever, cough, nausea, vomiting, diarrhea or melena. Patient does have an extensive cardiac history, but denied any recent hospitalization or immobility. On presentation, patient was afebrile, but tachycardic at 135 bpm. EKG was consistent with A. fib with RVR. Patient was also significantly hypertensive at 137/131 and saturating 70% on room air. Patient was placed on BiPAP therapy with improvement in hemodynamics. Patient remained hypertensive, but saturating well at 90% FiO2. Patient was given Lasix therapy and started on a nitroglycerin drip. Patient also received a loading dose of Cardizem and cardioverted. Nitroglycerin was stopped secondary to hypotension and patient was admitted to the intensive care unit. Over the course of the evening, patient continued to improve. Patient was eventually transitioned to 2 L nasal cannula, but remained hypertensive. Patient was given his Lopressor with significant improvement in blood pressure. Patient has not had recurrence of his A. fib with RVR. Patient was noted to have significant elevation of his troponin over the course of his ICU stay. Patient is not currently reporting any chest pain, nominal pain, nausea or vomiting. Patient reports an extensive cardiac history, but has not followed with cardiology at the [facility] secondary to a personality conflict. Patient states his last heart catheterization was approximately 17 years ago following his bypass surgery. Patient is unclear if he had a double or triple bypass. Patient reportedly is to have a stress test here at [facility] in the next couple of weeks. Patient states he has had several episodes such as this with palpitations. Patient will typically take Mylanta and Aleve. Patient states he will have dry heaves and diarrhea and then go to sleep and wake up feeling okay. Patient reports he has never been a smoker. Patient denies any respiratory complaints. Patient does not have an inhaler at baseline. Review of systems otherwise negative from a constitutional, HEENT, respiratory, cardiovascular, GI, genitourinary, musculoskeletal, skin, neurologic, psychiatric and hematologic system unless stated above. [facility] Home Medications aspirin 81 mg PO DAILY 10/20/20 [History Last Taken Unknown] cholecalciferol (vitamin D3) [Vitamin D3] 25 mcg PO DAILY 10/20/20 [History Last Taken Unknown] gabapentin 600 mg PO QHS 10/20/20 [History Last Taken Unknown] glipizide 20 mg PO DAILY 10/20/20 [History Last Taken Unknown] lecithin 1,200 mg PO DAILY 10/20/20 [History Last Taken Unknown] losartan 150 mg PO DAILY 10/20/20 [History Last Taken Unknown] metformin 1,000 mg PO BID 10/20/20 [History Last Taken Unknown] metoprolol tartrate 25 mg PO DAILY 10/20/20 [History Last Taken Unknown] pantoprazole 40 mg PO DAILY 10/20/20 [History Last Taken Unknown] thyroid (pork) [Rico Thyroid] 120 mg PO DAILY 10/20/20 [History Last Taken Unknown] vitamin H83-[id number] acid 1 tab PO DAILY 10/20/20 [History Last Taken Unknown] Allergy/AdvReac Type Severity Reaction Status Date / Time No Known Allergies Allergy Verified 10/20/20 18:42 Social History Smoking Status: Never smoker ROS ROS Narrative See HPI Physical Exam Const alert, oriented x3 and no apparent distress General Appearance: cooperative and well developed HEENT normocephalic, head/scalp atraumatic and moist oral mucous membranes Eyes PERRL and EOMs intact bilaterally Neck full ROM and no lymphadenopathy Chest inspection of chest normal Resp normal respiratory effort and no use of accessory muscles Effort and Inspection: able to speak in complete sentences Auscultation: clear to auscultation bilaterally; Negative for rales, rhonchi or wheezes Percussion: Negative for dullness Cardio regular rate, regular rhythm, S1 normal heart sound, S2 normal heart sound, no rub and no gallops Heart Sounds: murmur systolic II/ soft early right sternal border GI normal to inspection, nondistended, normoactive bowel sounds no CVA tenderness Extremity no clubbing, cyanosis or edema Skin no rashes or lesions noted Neuro oriented x3, CN's II-XII intact bilaterally, moves all extremities and no focal motor deficits Psych cooperative and affect normal Lab / Micro Data Result Diagrams: 10/21/20 04:36 10/21/20 04:36 Labs: Laboratory Results - last 24 hr 10/20/20 10/20/20 10/20/20 18:47 18:47 18:47 WBC 15.1 H RBC 5.71 Hgb 15.3 Hct 49.3 MCV 86.3 MCH 26.8 L MCHC 31.0 L RDW Std Deviation 47.7 H RDW Coeff of Dexter 15.3 H Plt Count 276 MPV 11.4 Immature Gran % (Auto) 0.100 Neut % (Auto) 39.5 L Lymph % (Auto) 48.9 H Schley % (Auto) 10.0 Eos % (Auto) 1.0 Baso % (Auto) 0.5 Absolute Neuts (auto) 6.0 Absolute Lymphs (auto) 7.39 H Nucleated RBC % 0 Differential Comment SCANNED Diff Path Review May foll PT INR APTT Sodium 138 Potassium 4.1 Chloride 103 Carbon Dioxide 19.0 L Anion Gap 16 H BUN 14 Creatinine 1.64 H Estim Creat Clear Calc 41.31 Est GFR (MDRD) Af Amer 53 L Est GFR (MDRD) Non-Af 44 L BUN/Creatinine Ratio 8.5 L Glucose 262 H Calcium 9.4 Magnesium Total Bilirubin AST ALT Alkaline Phosphatase Troponin I High Sens 840.7 H* B-Natriuretic Peptide 766.7 H Total Protein Albumin Globulin Albumin/Globulin Ratio Triglycerides Cholesterol LDL Cholesterol VLDL Cholesterol HDL Cholesterol TSH Free T4 MRSA (PCR) POC Glucose 10/20/20 10/20/20 10/20/20 18:55 18:55 18:55 WBC RBC Hgb Hct MCV MCH MCHC RDW Std Deviation RDW Coeff of Dexter Plt Count MPV Immature Gran % (Auto) Neut % (Auto) Lymph % (Auto) Sch[place] % (Auto) Eos % (Auto) Baso % (Auto) Absolute Neuts (auto) Absolute Lymphs (auto) Nucleated RBC % Differential Comment Diff Path Review PT 12.8 INR 1.0 APTT 23.3 L Sodium Potassium Chloride Carbon Dioxide Anion Gap BUN Creatinine Estim Creat Clear Calc Est GFR (MDRD) Af Amer Est GFR (MDRD) Non-Af BUN/Creatinine Ratio Glucose Calcium Magnesium 2.0 Total Bilirubin AST ALT Alkaline Phosphatase Troponin I High Sens B-Natriuretic Peptide Total Protein Albumin Globulin Albumin/Globulin Ratio Triglycerides Cholesterol LDL Cholesterol VLDL Cholesterol HDL Cholesterol TSH Free T4 MRSA (PCR) POC Glucose 10/20/20 10/20/20 10/20/20 22:15 23:19 23:25 WBC RBC Hgb Hct MCV MCH MCHC RDW Std Deviation RDW Coeff of Dexter Plt Count MPV Immature Gran % (Auto) Neut % (Auto) Lymph % (Auto) [place] % (Auto) Eos % (Auto) Baso % (Auto) Absolute Neuts (auto) Absolute Lymphs (auto) Nucleated RBC % Differential Comment Diff Path Review PT INR APTT Sodium Potassium Chloride Carbon Dioxide Anion Gap BUN Creatinine Estim Creat Clear Calc Est GFR (MDRD) Af Amer Est GFR (MDRD) Non-Af BUN/Creatinine Ratio Glucose Calcium Magnesium Total Bilirubin AST ALT Alkaline Phosphatase Troponin I High Sens 1699.0 H* B-Natriuretic Peptide Total Protein Albumin Globulin Albumin/Globulin Ratio Triglycerides Cholesterol LDL Cholesterol VLDL Cholesterol HDL Cholesterol TSH Free T4 MRSA (PCR) Negative POC Glucose 220 H 10/21/20 10/21/20 10/21/20 00:19 04:36 04:36 WBC 10.2 RBC 4.62 Hgb 12.5 L Hct 39.2 L MCV 84.8 MCH 27.1 MCHC 31.9 L RDW Std Deviation 46.7 H RDW Coeff of Dexter 15.2 H Plt Count 198 MPV 10.3 Immature Gran % (Auto) 0.200 Neut % (Auto) 73.9 H Lymph % (Auto) 16.7 L Schley % (Auto) 8.7 Eos % (Auto) 0.3 Baso % (Auto) 0.2 Absolute Neuts (auto) 7.5 Absolute Lymphs (auto) 1.70 Nucleated RBC % 0 Differential Comment Diff Path Review PT INR APTT Sodium 141 Potassium 4.5 Chloride 104 Carbon Dioxide 29.0 Anion Gap 8 BUN 16 Creatinine 1.44 H Estim Creat Clear Calc 47.05 Est GFR (MDRD) Af Amer 62 Est GFR (MDRD) Non-Af 51 L BUN/Creatinine Ratio 11.1 Glucose 168 H Calcium 8.8 Magnesium Total Bilirubin 0.50 AST 45 H ALT 23 Alkaline Phosphatase 72 Troponin I High Sens 3167.7 H* 4270.9 H* B-Natriuretic Peptide Total Protein 7.1 Albumin 3.7 Globulin 3.4 Albumin/Globulin Ratio 1.1 Triglycerides 142 Cholesterol 199 LDL Cholesterol 129 VLDL Cholesterol 28 HDL Cholesterol 42 TSH 1.18 Free T4 0.73 L MRSA (PCR) POC Glucose 10/21/20 04:36 WBC RBC Hgb Hct MCV MCH MCHC RDW Std Deviation RDW Coeff of Dexter Plt Count MPV Immature Gran % (Auto) Neut % (Auto) Lymph % (Auto) [place] % (Auto) Eos % (Auto) Baso % (Auto) Absolute Neuts (auto) Absolute Lymphs (auto) Nucleated RBC % Differential Comment Diff Path Review PT INR APTT 120.3 H* Sodium Potassium Chloride Carbon Dioxide Anion Gap BUN Creatinine Estim Creat Clear Calc Est GFR (MDRD) Af Amer Est GFR (MDRD) Non-Af BUN/Creatinine Ratio Glucose Calcium Magnesium Total Bilirubin AST ALT Alkaline Phosphatase Troponin I High Sens B-Natriuretic Peptide Total Protein Albumin Globulin Albumin/Globulin Ratio Triglycerides Cholesterol LDL Cholesterol VLDL Cholesterol HDL Cholesterol TSH Free T4 MRSA (PCR) POC Glucose Micro: Microbiology 10/20/20 20:17 SARS-CoV-2 Antigen (Rapid) - Final Mucosa - Nose Rhythm Strip Rhythm Strip: A-fib Rate: 135 Radiology Impression Chest X-Ray 10/20/20 18:48 IMPRESSION: Diffuse bilateral interstitial and airspace opacities may represent edema and/or infection. Borderline cardiomegaly. Electronically Signed: Clemente Hernandez MD at 19:18 EDT Tel , Service support , Charges/Coding Addendum Addendum: Assessment and plan added as an addendum secondary to ongoing issues with EHR with ransomwear attack RECOMMENDATIONS: 1. Continue systemic anticoagulation 2. Wean oxygen as tolerated. Consider initiation of baseline PRAKASH therapy 3. Continue telemetry 4. Await cardiology recommendations 5. Continue baseline medications with as needed hydralazine 6. Okay to leave the intensive care unit from my perspective IMPRESSIONS: 1. Acute hypoxic respiratory failure secondary to flash pulmonary edema secondary to acute decompensated CHF Patient with significant improvement following diuretics and cardioversion to normal sinus rhythm. Continue to wean supplemental oxygen as tolerated. Patient does not have a smoking history and it is unclear if there is an underlying primary pulmonary pathology. Anticipate continued improvement pending diuretics and blood pressure control. Okay to leave the intensive care unit from my perspective, but cardiology may want to proceed with interventions. 2. Non-ST elevation HI secondary to problem #1 with A. fib with RVR/hypertensive emergency Patient with significant elevation of troponin following A. fib with RVR. Patient does have an extensive cardiac history and reports his last heart catheterization was over 17 years ago. Patient may benefit from heart catheterization, but cardiology has yet to see the patient. Blood pressure is much improved on baseline medications. Clinical suspicion that A. fib was the inciting factor and given the history this may be happening more frequently. Patient may benefit from initiation of maintenance anticoagulation. 3. Hyperlipidemia/diabetes/PRAKASH/hypothyroidism/obesity/poor cardiology follow-up Complicates care, management, recovery and prognosis. Patient likely okay to reinitiate a p.o. diet. Continue with baseline medications. Patient should be placed on baseline PRAKASH therapy with sleep. Visit Charges Inpatient E&M: 89486 Init Hosp L3
[2020-10-21 07:36] LABS: Bedside Glucose 129 mg/dL (70-110)
[2020-10-21] MEDS: Thyroid 60 MG Tablet 120 MG PO (09:17)
[2020-10-21] MEDS: Aspirin E.C. 81 MG Tablet PO (09:18)
[2020-10-21] MEDS: Losartan Potassium 50 MG Tablet 150 MG PO (09:18)
[2020-10-21] MEDS: Furosemide 40 MG/4 ML Vial IV ×2 (09:19→17:21)
[2020-10-21] MEDS: Pantoprazole Sodium 40 MG Tablet PO (09:19)
--- NOTE | 2020-10-21 11:10 | CON.PCM.CA_ITS ---
HPI Consult Data Date of Consult: 10/21/20 HPI Narrative HPI Narrative: DANI SHETH, is a 70 year old white male who presents for cardiology consultation for concerns of atrial fibrillation with RVR and shortness of breath dyspnea thought compatible with CHF/flash pulmonary edema superimposed upon a history of CAD, NC, PCI, CABG, hyperlipidemia, hypertension, diabetes mellitus, and thyroid disorder. 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 He states he has undergone cardiac catheterization/PCI at [facility]. He unde rwent CABG in [place], [place]-he believes [facility]. He does not recall undergoing repeat cardiac catheterization since his CABG which he states took place approximately 18 years ago. He does not believe he has been evaluated by machine shorthand reporter for at least 5 years. He states at home he has episodes where he feels that he needs to use Mylanta and Aleve to eliminate symptoms that are both gastric but unclear whether it is cardiac. He does not recall having ongoing chest discomfort. He states his main issues are shortness of breath and dyspnea at rest. He has not necessarily been compla ining of orthopnea or PND or peripheral pitting edema. He does not recall near syncope or syncope. Based upon his recurrent issues he presented to the emergency department for evaluation. He was found to have atrial fibrillation with RVR and concerns of an acute respiratory failure. He initiated medical management which from a cardiac standpoint included attempt at rate control therapy with IV diltiazem as well as an attempt at volume control therapy with IV furosemide. After receiving IV diltiazem bolus he was noted to have spontaneous conversion of his atrial fibrillation back to sinus rhythm. He was subsequently placed in ICU for further evaluation and care especially of his respiratory status. He has received medical management including IV diuretic therapy. His respiratory status status has improved. He has currently on room air. He has had troponin I levels performed. They have been elevating. His ECG in sinus rhythm demonstrated a left bundle branch block pattern. He has continued medical therapy including IV heparin. He is pending further evaluation with a transthoracic echocardiogram. His previous cardiovascular records/procedure notes, etc., are unavailable for review at this time. [facility] Home Medications aspirin 81 mg PO DAILY 10/20/20 [History Last Taken Unknown] cholecalciferol (vitamin D3) [Vitamin D3] 25 mcg PO DAILY 10/20/20 [History Last Taken Unknown] gabapentin 600 mg PO QHS 10/20/20 [History Last Taken Unknown] glipizide 20 mg PO DAILY 10/20/20 [History Last Taken Unknown] lecithin 1,200 mg PO DAILY 10/20/20 [History Last Taken Unknown] losartan 150 mg PO DAILY 10/20/20 [History Last Taken Unknown] metformin 1,000 mg PO BID 10/20/20 [History Last Taken Unknown] metoprolol tartrate 25 mg PO DAILY 10/20/20 [History Last Taken Unknown] pantoprazole 40 mg PO DAILY 10/20/20 [History Last Taken Unknown] thyroid (pork) [Elton Thyroid] 120 mg PO DAILY 10/20/20 [History Last Taken Unknown] vitamin [id number] acid 1 tab PO DAILY 10/20/20 [History Last Taken Unknown] Allergy/AdvReac Type Severity Reaction Status Date / Time No Known Allergies Allergy Verified 10/20/20 18:42 Social History Smoking Status: Never smoker ROS Constitutional Constitutional: Reports as per HPI Eyes Eyes: Reports as per HPI ENT HEENT: Reports as per HPI Cardiovascular Cardiovascular: Reports dyspnea and dyspnea at rest Respiratory/Chest Respiratory/Chest: Reports dyspnea Gastrointestinal Gastrointestinal: Reports as per HPI Genitourinary Genitourinary: Reports as per HPI Integumentary Integumentary: Reports as per HPI Neurologic Neurologic: Reports as per HPI Physical Exam Const alert, oriented x3 and no apparent distress Orientation / Consciousness: awake HEENT normocephalic, head/scalp atraumatic and hearing grossly normal bilaterally Eyes PERRL, EOMs intact bilaterally and conjunctivae normal Neck full ROM, supple and no JVD Chest Chest: midline sternotomy incision Resp normal respiratory effort Auscultation: diminished lung sounds bilateral lower Cardio regular rate, regular rhythm, S1 normal heart sound and S2 normal heart sound GI normal to inspection, nondistended, normoactive bowel sounds Extremity no pedal edema Skin no rashes or lesions noted Neuro oriented x3, moves all extremities, no focal motor deficits and no sensory deficits noted Psych mental status grossly normal Procedure Criteria Type of Procedure Procedure Type: Elective Elective Risks - COVID COVID Risk Discussion: The surgeon/proceduralist and patient have discussed in detail the risk of exposure to and/or potential harm posed by the COVID-19 virus with having a surgery/procedure at this time versus the risk of delaying the anjelica deanna/procedure. It is not possible to know either the risk of delaying the surgery or procedure or chance of getting an infection with perfect accuracy, but a joint decision was made between the patient and the surgeon/proceduralist to proceed at this time with the scheduled surgery/procedure as indicated on the consent form. Objective Data Vital Signs: Vital Signs Temp Pulse Resp BP Pulse Ox 97.4 F L 72 15 160/80 H 95 10/21/20 07:00 10/21/20 11:07 10/21/20 11:07 10/21/20 11:07 10/21/20 11:07 Oxygen Flow Rate (L/min) 2 Oxygen Delivery Method Nasal Cannula Weight: 230 lb 8 oz Body Mass Index (BMI) 34.2 Intake & Output: Intake and Output for Last 24 Hours 10/19/20 10/20/20 10/21/20 23:59 23:59 23:59 Intake Total 51.4 / 51.4 259.75 / 259.75 Output Total 1450 / 1450 Balance 51.4 / -748.6 -1190.25 / -1190.25 Lab / Micro Data Result Diagrams: 10/21/20 04:36 10/21/20 04:36 Labs: Laboratory Results - last 24 hr 10/20/20 10/20/20 10/20/20 18:47 18:47 18:47 WBC 15.1 H RBC 5.71 Hgb 15.3 Hct 49.3 MCV 86.3 MCH 26.8 L MCHC 31.0 L RDW Std Deviation 47.7 H RDW Coeff of Dexter 15.3 H Plt Count 276 MPV 11.4 Immature Gran % (Auto) 0.100 Neut % (Auto) 39.5 L Lymph % (Auto) 48.9 H [place] % (Auto) 10.0 Eos % (Auto) 1.0 Baso % (Auto) 0.5 Absolute Neuts (auto) 6.0 Absolute Lymphs (auto) 7.39 H Nucleated RBC % 0 Differential Comment SCANNED Diff Path Review May foll PT INR APTT Sodium 138 Potassium 4.1 Chloride 103 Carbon Dioxide 19.0 L Anion Gap 16 H BUN 14 Creatinine 1.64 H Estim Creat Clear Calc 41.31 Est GFR (MDRD) Af Amer 53 L Est GFR (MDRD) Non-Af 44 L BUN/Creatinine Ratio 8.5 L Glucose 262 H Calcium 9.4 Magnesium Total Bilirubin AST ALT Alkaline Phosphatase Troponin I High Sens 840.7 H* B-Natriuretic Peptide 766.7 H Total Protein Albumin Globulin Albumin/Globulin Ratio Triglycerides Cholesterol LDL Cholesterol VLDL Cholesterol HDL Cholesterol TSH Free T4 MRSA (PCR) POC Glucose 10/20/20 10/20/20 10/20/20 18:55 18:55 18:55 WBC RBC Hgb Hct MCV MCH MCHC RDW Std Deviation RDW Coeff of Dexter Plt Count MPV Immature Gran % (Auto) Neut % (Auto) Lymph % (Auto) [place] % (Auto) Eos % (Auto) Baso % (Auto) Absolute Neuts (auto) Absolute Lymphs (auto) Nucleated RBC % Differential Comment Diff Path Review PT 12.8 INR 1.0 APTT 23.3 L Sodium Potassium Chloride Carbon Dioxide Anion Gap BUN Creatinine Estim Creat Clear Calc Est GFR (MDRD) Af Amer Est GFR (MDRD) Non-Af BUN/Creatinine Ratio Glucose Calcium Magnesium 2.0 Total Bilirubin AST ALT Alkaline Phosphatase Troponin I High Sens B-Natriuretic Peptide Total Protein Albumin Globulin Albumin/Globulin Ratio Triglycerides Cholesterol LDL Cholesterol VLDL Cholesterol HDL Cholesterol TSH Free T4 MRSA (PCR) POC Glucose 10/20/20 10/20/20 10/20/20 22:15 23:19 23:25 WBC RBC Hgb Hct MCV MCH MCHC RDW Std Deviation RDW Coeff of Dexter Plt Count MPV Immature Gran % (Auto) Neut % (Auto) Lymph % (Auto) [place] % (Auto) Eos % (Auto) Baso % (Auto) Absolute Neuts (auto) Absolute Lymphs (auto) Nucleated RBC % Differential Comment Diff Path Review PT INR APTT Sodium Potassium Chloride Carbon Dioxide Anion Gap BUN Creatinine Estim Creat Clear Calc Est GFR (MDRD) Af Amer Est GFR (MDRD) Non-Af BUN/Creatinine Ratio Glucose Calcium Magnesium Total Bilirubin AST ALT Alkaline Phosphatase Troponin I High Sens 1699.0 H* B-Natriuretic Peptide Total Protein Albumin Globulin Albumin/Globulin Ratio Triglycerides Cholesterol LDL Cholesterol VLDL Cholesterol HDL Cholesterol TSH Free T4 MRSA (PCR) Negative POC Glucose 220 H 10/21/20 10/21/20 10/21/20 00:19 04:36 04:36 WBC 10.2 RBC 4.62 Hgb 12.5 L Hct 39.2 L MCV 84.8 MCH 27.1 MCHC 31.9 L RDW Std Deviation 46.7 H RDW Coeff of Dexter 15.2 H Plt Count 198 MPV 10.3 Immature Gran % (Auto) 0.200 Neut % (Auto) 73.9 H Lymph % (Auto) 16.7 L [place] % (Auto) 8.7 Eos % (Auto) 0.3 Baso % (Auto) 0.2 Absolute Neuts (auto) 7.5 Absolute Lymphs (auto) 1.70 Nucleated RBC % 0 Differential Comment Diff Path Review PT INR APTT Sodium 141 Potassium 4.5 Chloride 104 Carbon Dioxide 29.0 Anion Gap 8 BUN 16 Creatinine 1.44 H Estim Creat Clear Calc 47.05 Est GFR (MDRD) Af Amer 62 Est GFR (MDRD) Non-Af 51 L BUN/Creatinine Ratio 11.1 Glucose 168 H Calcium 8.8 Magnesium Total Bilirubin 0.50 AST 45 H ALT 23 Alkaline Phosphatase 72 Troponin I High Sens 3167.7 H* 4270.9 H* B-Natriuretic Peptide Total Protein 7.1 Albumin 3.7 Globulin 3.4 Albumin/Globulin Ratio 1.1 Triglycerides 142 Cholesterol 199 LDL Cholesterol 129 VLDL Cholesterol 28 HDL Cholesterol 42 TSH 1.18 Free T4 0.73 L MRSA (PCR) POC Glucose 10/21/20 10/21/20 04:36 07:29 WBC RBC Hgb Hct MCV MCH MCHC RDW Std Deviation RDW Coeff of Dexter Plt Count MPV Immature Gran % (Auto) Neut % (Auto) Lymph % (Auto) [place] % (Auto) Eos % (Auto) Baso % (Auto) Absolute Neuts (auto) Absolute Lymphs (auto) Nucleated RBC % Differential Comment Diff Path Review PT INR APTT 120.3 H* Sodium Potassium Chloride Carbon Dioxide Anion Gap BUN Creatinine Estim Creat Clear Calc Est GFR (MDRD) Af Amer Est GFR (MDRD) Non-Af BUN/Creatinine Ratio Glucose Calcium Magnesium Total Bilirubin AST ALT Alkaline Phosphatase Troponin I High Sens B-Natriuretic Peptide Total Protein Albumin Globulin Albumin/Globulin Ratio Triglycerides Cholesterol LDL Cholesterol VLDL Cholesterol HDL Cholesterol TSH Free T4 MRSA (PCR) POC Glucose 129 H Micro: Microbiology 10/20/20 20:17 Mucosa - Nose SARS-CoV-2 Antigen (Rapid) - Final Rhythm Strip Rhythm Strip: A-fib Rate: 135 Cardiology Labs/Tests 10/20/20 18:47: WBC 15.1 H, RBC 5.71, Hgb 15.3, Hct 49.3, MCV 86.3, MCH 26.8 L, MCHC 31.0 L, Plt Count 276, MPV 11.4, Immature Gran % (Auto) 0.100, Neut % (Auto) 39.5 L, Lymph % (Auto) 48.9 H, [place] % (Auto) 10.0, Eos % (Auto) 1.0, Baso % (Auto) 0.5, Absolute Neuts (auto) 6.0, Nucleated RBC % 0 10/20/20 18:47: Sodium 138, Potassium 4.1, Chloride 103, Carbon Dioxide 19.0 L, Anion Gap 16 H, BUN 14, Creatinine 1.64 H, Est GFR (MDRD) Af Amer 53 L, Est GFR (MDRD) Non-Af 44 L, BUN/Creatinine Ratio 8.5 L, Glucose 262 H, Calcium 9.4 10/20/20 18:47: B-Natriuretic Peptide 766.7 H 10/20/20 18:55: PT 12.8, INR 1.0 10/20/20 18:55: APTT 23.3 L 10/20/20 18:55: Magnesium 2.0 10/21/20 04:36: WBC 10.2, RBC 4.62, Hgb 12.5 L, Hct 39.2 L, MCV 84.8, MCH 27.1, MCHC 31.9 L, Plt Count 198, MPV 10.3, Immature Gran % (Auto) 0.200, Neut % (Auto) 73.9 H, Lymph % (Auto) 16.7 L, [place] % (Auto) 8.7, Eos % (Auto) 0.3, Baso % (Auto) 0.2, Absolute Neuts (auto) 7.5, Nucleated RBC % 0 10/21/20 04:36: Sodium 141, Potassium 4.5, Chloride 104, Carbon Dioxide 29.0, Anion Gap 8, BUN 16, Creatinine 1.44 H, Est GFR (MDRD) Af Amer 62, Est GFR (MDRD) Non-Af 51 L, BUN/Creatinine Ratio 11.1, Glucose 168 H, Calcium 8.8, Total Bilirubin 0.50, Triglycerides 142, Cholesterol 199, LDL Cholesterol 129, VLDL Cholesterol 28, HDL Cholesterol 42 10/21/20 04:36: APTT 120.3 H* Rhythm: Sinus rhythm EKG: Atrial fibrillation; LBBB Sinus rhythm; LBBB Radiography Diagnostic Testing: Radiology Impression Chest X-Ray 10/20/20 18:48 IMPRESSION: Diffuse bilateral interstitial and airspace opacities may represent edema and/or infection. Borderline cardiomegaly. Electronically Signed: Clemente Hernandez MD at 19:18 EDT Tel , Service support ,
[2020-10-21 11:31] LABS: Bedside Glucose 128 mg/dL (70-110)
--- NOTE | 2020-10-21 12:12 | PCM.HOSP.N ---
Hospitalist Note Follow up: Respiratory failure Subjective: Breathing better. Tolerating room air. States that he has been having increased dyspnea, primarily at night. Physical: 36.3, 66, 160/80, 15, 90% RA NAD, up in chair. no respiratory distress. LCTAB. Abd soft NT ND nml BS. Ext with trace LE edema. Data: CBC: WBC 10, Hg 12.5, Plt 198 BMP: 141, 4.5, Cr 1.44 Trop: 4270 A/P 1. Acute Hypoxic Respiratory Failure Resolved secondary to Acute Decompensated CHF, Unclear Type with suspected flash pulmonary edema with elevated cardiac enzymes, suspected NSTEMI: Patient administered IV lasix in the ED, 2. Paroxysmal atrial fibrillation with RVR: Now in NSR EKG in ED w/ atrial fibrillation w/ RVR however eventually converted to sinus rhythm. Patient administered Cardizem bolus in ED. Metoprolol tartrate Heparin gtt 3. Hypertensive emergency: Associate with #1, #2, clinically improved, blood pressures improving, transiently on nitroglycerin which has been discontinued given usage of Cardizem bolus, pressure now 121/81, will continue patient home regimen, as needed IV hydralazine. 4. NSTEMI Cardiology on consult Echo Heparin gtt Metoprolol, losartan, atorvastatin 5. Acute CHF exacerbation. unclear type echo ordered furosemide Additional Co-morbidities: CAD: Status post CABG x4 and PCI, continue aspirin, heparin drip, metoprolol, losartan, not on statin therapy with FLP pending as noted. Hyperlipidemia: Continue home statin regimen. AM FLP. Diabetes mellitus type II with neuropathy: Hold oral home regimen, once respiratory status improved allow ADA diet, accu checks w/ ISS, continue patient home gabapentin regimen. Hypothyroidism: Continue home thyroid supplementation regimen, TSH pending. PRAKASH: BiPAP nightly however currently continuous given presentation as noted. Obesity: Weight loss and lifestyle changes encouraged. GERD: Continue PPI. DVT prophylaxis: SCDs, heparin drip as noted. Transfer to PCU Visit Charges Inpatient E&M: 49361 Subs Hosp L2
[2020-10-21] MEDS: amLODIPine 2.5 MG Tablet PO (12:16)
[2020-10-21] MEDS: Clopidogrel Bisulfate 300 MG Tablet PO (12:16)
[2020-10-21 13:50] LABS: Troponin-I HS 3129.9 pg/mL (3.0-78.5)
[2020-10-21 14:23] LABS: Partial Thromboplast Time 48.7 Seconds (24.1-36.2)
[2020-10-21] MEDS: Heparin Injection (Vial) 5,000 UNIT/ML VIAL IV (14:39)
[2020-10-21] MEDS: Insulin Lispro 100 UNIT/ML INSULN.PEN SC ×2 (16:22→21:47)
[2020-10-21 16:31] LABS: Bedside Glucose 177 mg/dL (70-110)
[2020-10-21] MEDS: 0.9% Saline Lock 10 ML Syringe IV (17:21)
[2020-10-21] MEDS: hydrALAZINE 20 MG/ML Vial 10 MG IV (17:25)
[2020-10-21] MEDS: HEPARIN/D5w 25,000 UNITS 25,000 UNITS/250 ML IV.SOLN. 13 UNITS IV (20:22)
[2020-10-21 21:38] LABS: Partial Thromboplast Time 57.9 Seconds (24.1-36.2)
[2020-10-21] MEDS: MELATONIN 3 MG TABLET PO (21:48)
[2020-10-21] MEDS: Gabapentin 600 MG Tablet PO (21:48)
[2020-10-21] MEDS: Atorvastatin Calcium 40 MG Tablet PO (21:48)
[2020-10-21 22:16] LABS: Bedside Glucose 181 mg/dL (70-110)
[2020-10-22] VITALS (24 sets, daily range): BP systolic 110–188; BP diastolic 63–113; PULSE 58–82; RESP 12–20; TEMP 36.2–36.7; O2SAT 93–100
[2020-10-22 04:04] LABS: Absolute Lymphocyte Count 1.53 X10^3/uL (0.83-4.51); Absolute Neutrophil Count 3.6 X10^3/uL (2.0-7.7); Basophil# 0.03 X10^3/uL; Basophil% 0.5 % (0-1); Eosinophil# 0.05 X10^3/uL; Eosinophils% 0.8 % (0-5); Hematocrit 37.9 % (40-54); Lymphocyte # 1.53 X10^3/ul (0.83-4.51); Lymphocyte % 25.9 % (19-41); Mean Corp Hgb Conc 31.7 g/dL (32-36); Mean Corpuscular Hgb 26.5 pg (27.0-32.0); Mean Corpuscular Volume 83.8 fL (80-94); Mean Platelet Vol. 10.5 fl (6.2-12.0); Monocyte# 0.74 X10^3/uL; Monocyte% 12.5 % (0-10); NRBC Flagged by Analyzer 0 % (0-5); Neutrophil # 3.55 X10^3/uL (2.7-7.7); Neutrophil % 60.1 % (47-70); Platelet Count 214 K/mm3 (150-450); RBC Distribution Width SD 45.4 fl (35.1-43.9); Red Blood Count 4.52 M/mm3 (4.6-6.2); White Blood Count 5.9 K/mm3 (4.4-11.0)
[2020-10-22 04:07] LABS: Partial Thromboplast Time 56.6 Seconds (24.1-36.2)
[2020-10-22 04:23] LABS: Anion Gap 9 (5-15); BUN 19 mg/dL (7-18); BUN/Creat Ratio 12.6 RATIO (10-20); Calcium,Total 9.1 mg/dL (8.5-10.1); Chloride 99 mmol/L (98-107); Creatinine, Serum 1.51 mg/dL (0.70-1.30); EST Glomerular Filtration Rate 49 mL/min (>60); Est Glom Filt Rate - Afr Amer 59 mL/min (>60); Estimated Creatinine Clearance 44.87 ml/min; Glucose 171 mg/dL (74-106); Potassium 3.5 mmol/L (3.5-5.1); Sodium Level 137 mmol/L (136-145)
--- NOTE | 2020-10-22 05:55 | EKG12_ITS ---
Test Reason : AM EKG Blood Pressure : / mmHG Vent. Rate : 065 BPM Atrial Rate : 065 BPM P-R Int : 218 ms QRS Dur : 138 ms QT Int : 510 ms P-R-T Axes : 014 034 126 degrees QTc Int : 530 ms Sinus rhythm with 1st degree A-V block Left bundle branch block Abnormal ECG When compared with ECG of 20-OCT-2020 19:42, MANUAL COMPARISON REQUIRED, DATA IS UNCONFIRMED Confirmed by KALPANA DORANTES, OMAR ([id number]), editor at large ANTELMO THOMPSON ([id number]) on 10/29/2020 7:41:27 AM Referred By: DR SERRATO Confirmed By:OMAR ACUNA MD
[2020-10-22] MEDS: Metoprolol Tartrate 25 MG Tablet PO (06:26)
[2020-10-22] MEDS: Clopidogrel Bisulfate 75 MG Tablet PO (06:26)
[2020-10-22] MEDS: amLODIPine 2.5 MG Tablet PO ×2 (06:26→15:29)
[2020-10-22] MEDS: Losartan Potassium 100 MG Tablet PO (06:26)
[2020-10-22] MEDS: Aspirin E.C. 81 MG Tablet PO (06:26)
[2020-10-22 06:56] LABS: Bedside Glucose 154 mg/dL (70-110)
--- NOTE | 2020-10-22 07:57 | PCM.PN.INT ---
Assessment & Plan Assessment/Plan (1) Non-ST elevation (NSTEMI) myocardial infarction: (2) Acute respiratory failure with hypoxia: (3) Flash pulmonary edema: (4) Hypertensive emergency: PLAN: RECOMMENDATIONS: 1. Continue systemic anticoagulation 2. Walking oximetry prior to discharge. Consider initiation of baseline PRAKASH therapy 3. Await results of heart catheterization 4. Hemodynamically stable on room air. Will sign off from a critical care perspective 5. Patient can follow-up as an outpatient for work-up only if requested. Doubt underlying pulmonary pathology IMPRESSIONS: 1. Acute hypoxic respiratory failure secondary to flash pulmonary edema secondary to acute decompensated CHF Patient with significant improvement following diuretics and cardioversion to normal sinus rhythm with Cardizem. Walking oximetry prior to discharge. Patient does not have a smoking history and it is unclear if there is an underlying primary pulmonary pathology. Anticipate continued improvement pending diuretics and blood pressure control. Hemodynamically stable on room air. Patient should have a walking oximetry prior to discharge. Will sign off from a pulmonary/critical care perspective 2. Non-ST elevation TX secondary to problem #1 with A. fib with RVR/hypertensive emergency Patient with significant elevation of troponin following A. fib with RVR. Patient does have an extensive cardiac history and reports his last heart catheterization was over 17 years ago. Patient may benefit from heart catheterization, but timing has not been determined. Blood pressure is much improved on baseline medications. Clinical suspicion that A. fib was the inciting factor and given the history this may be happening more frequently. Patient may benefit from initiation of maintenance anticoagulation. 3. Hyperlipidemia/diabetes/PRAKASH/hypothyroidism/obesity/poor cardiology follow-up Complicates care, management, recovery and prognosis. Patient currently n.p.o for possible heart catheterization. Continue with baseline medications. Patient should be placed on baseline PRAKASH therapy with sleep. Subjective Subjective Patient transferred out of the intensive care unit yesterday. Patient reports he feels subjectively close to baseline. Patient is not reporting any chest pain. Patient has been prepped for a heart catheterization, but timing is unclear at this point. Patient is asking to go home LYSSA. Patient was tolerating room air on my evaluation. Objective Data Objective Data Vital Signs: Vital Signs Temp Pulse Resp BP Pulse Ox 36.4 C L 82 16 138/71 H 98 10/22/20 06:30 10/22/20 07:00 10/22/20 06:30 10/22/20 06:30 10/22/20 06:30 Oxygen Flow Rate (L/min) 2 Oxygen Delivery Method Room Air Weight: 101.2 kg Body Mass Index (BMI) 34.2 Intake & Output: Intake and Output for Last 24 Hours 10/20/20 10/21/20 10/22/20 23:59 23:59 23:59 Intake Total 51.4 / 51.4 660.00 / 900.00 326.23 / 326.23 Output Total 1800 / 3275 1725 / 1725 Balance 51.4 / -748.6 -1140.00 / -2375.00 -1398.77 / -1398.77 Lab / Micro Data Result Diagrams: 10/22/20 03:16 10/22/20 03:16 Labs: Laboratory Results - last 24 hr 10/21/20 10/21/20 10/21/20 11:19 13:08 13:08 WBC RBC Hgb Hct MCV MCH MCHC RDW Std Deviation RDW Coeff of Dexter Plt Count MPV Immature Gran % (Auto) Neut % (Auto) Lymph % (Auto) [place] % (Auto) Eos % (Auto) Baso % (Auto) Absolute Neuts (auto) Absolute Lymphs (auto) Nucleated RBC % APTT Cancelled Sodium Potassium Chloride Carbon Dioxide Anion Gap BUN Creatinine Estim Creat Clear Calc Est GFR (MDRD) Af Amer Est GFR (MDRD) Non-Af BUN/Creatinine Ratio Glucose Calcium Troponin I High Sens 3129.9 H* POC Glucose 128 H 10/21/20 10/21/20 10/21/20 13:45 14:09 16:20 WBC RBC Hgb Hct MCV MCH MCHC RDW Std Deviation RDW Coeff of Dexter Plt Count MPV Immature Gran % (Auto) Neut % (Auto) Lymph % (Auto) [place] % (Auto) Eos % (Auto) Baso % (Auto) Absolute Neuts (auto) Absolute Lymphs (auto) Nucleated RBC % APTT Cancelled 48.7 H Sodium Potassium Chloride Carbon Dioxide Anion Gap BUN Creatinine Estim Creat Clear Calc Est GFR (MDRD) Af Amer Est GFR (MDRD) Non-Af BUN/Creatinine Ratio Glucose Calcium Troponin I High Sens POC Glucose 177 H 10/21/20 10/21/20 10/22/20 20:55 21:40 03:16 WBC 5.9 RBC 4.52 L Hgb 12.0 L Hct 37.9 L MCV 83.8 MCH 26.5 L MCHC 31.7 L RDW Std Deviation 45.4 H RDW Coeff of Dexter 15.0 H Plt Count 214 MPV 10.5 Immature Gran % (Auto) 0.200 Neut % (Auto) 60.1 Lymph % (Auto) 25.9 [place] % (Auto) 12.5 H Eos % (Auto) 0.8 Baso % (Auto) 0.5 Absolute Neuts (auto) 3.6 Absolute Lymphs (auto) 1.53 Nucleated RBC % 0 APTT 57.9 H Sodium Potassium Chloride Carbon Dioxide Anion Gap BUN Creatinine Estim Creat Clear Calc Est GFR (MDRD) Af Amer Est GFR (MDRD) Non-Af BUN/Creatinine Ratio Glucose Calcium Troponin I High Sens POC Glucose 181 H 10/22/20 10/22/20 10/22/20 03:16 03:16 06:30 WBC RBC Hgb Hct MCV MCH MCHC RDW Std Deviation RDW Coeff of Dexter Plt Count MPV Immature Gran % (Auto) Neut % (Auto) Lymph % (Auto) [place] % (Auto) Eos % (Auto) Baso % (Auto) Absolute Neuts (auto) Absolute Lymphs (auto) Nucleated RBC % APTT 56.6 H Sodium 137 Potassium 3.5 Chloride 99 Carbon Dioxide 29.0 Anion Gap 9 BUN 19 H Creatinine 1.51 H Estim Creat Clear Calc 44.87 Est GFR (MDRD) Af Amer 59 L Est GFR (MDRD) Non-Af 49 L BUN/Creatinine Ratio 12.6 Glucose 171 H Calcium 9.1 Troponin I High Sens POC Glucose 154 H Micro: Microbiology 10/20/20 20:17 Mucosa - Nose SARS-CoV-2 Antigen (Rapid) - Final Radiography Diagnostic Testing: Radiology Impression Echocardiogram 10/20/20 21:36 Interpretation Summary The study was technically difficult. Contrast injection was performed. Mild segmental systolic dysfunction (see wall motion). The estimated ejection fraction is 45 %. Mild-Moderate (1-2+) mitral valve insufficiency. Trivial tricuspid valve insufficiency. Mild focal aortic valve calcification. Mild (1+) aortic valve insufficiency. Mild (1+) pulmonic valve insufficiency. Mildly dilated aortic root. Unable to estimate RV systolic pressure due to insufficient tricuspid regurgitant envelope. Diastolic function is indeterminate. Ordering Physician: Paulette Guerrero Referring Physician: MD Marlene Elver Performed By: Michael Garcia RCS Chest X-Ray 10/21/20 05:00 IMPRESSION: No active disease. Electronically Signed: Eze Albert MD at 15:22 EDT Tel , Service support , Rhythm Strip Rhythm Strip: A-fib Rate: 135 Physical Exam Const alert, oriented x3 and no apparent distress General Appearance: cooperative and well developed HEENT normocephalic, head/scalp atraumatic and moist oral mucous membranes Eyes PERRL and EOMs intact bilaterally Neck full ROM and no lymphadenopathy Chest inspection of chest normal Resp normal respiratory effort and no use of accessory muscles Effort and Inspection: able to speak in complete sentences Auscultation: clear to auscultation bilaterally; Negative for rales, rhonchi or wheezes Percussion: Negative for dullness Cardio regular rate, regular rhythm, S1 normal heart sound, S2 normal heart sound, no rub and no gallops Heart Sounds: murmur systolic II/ soft early right sternal border GI normal to inspection, nondistended, normoactive bowel sounds no CVA tenderness Extremity no clubbing, cyanosis or edema Skin no rashes or lesions noted Neuro oriented x3, CN's II-XII intact bilaterally, moves all extremities and no focal motor deficits Psych cooperative and affect normal Charges/Coding Visit Charges Inpatient E&M: 51554 Subs Hosp L2
--- NOTE | 2020-10-22 08:45 | PCM.PN.CARD ---
Subjective Subjective The patient is awake and alert. He denies ongoing chest discomfort. He states his breathing appears to be stable at this time. Objective Data Vital Signs: Vital Signs Temp Pulse Resp BP Pulse Ox 97.5 F L 82 16 138/71 H 95 10/22/20 06:30 10/22/20 07:00 10/22/20 06:30 10/22/20 06:30 10/22/20 07:30 Oxygen Flow Rate (L/min) 2 Oxygen Delivery Method Room Air Weight: 223 lb 1.725 oz Body Mass Index (BMI) 34.2 Intake & Output: Intake and Output for Last 24 Hours 10/20/20 10/21/20 10/22/20 23:59 23:59 23:59 Intake Total 51.4 / 51.4 660.00 / 900.00 326.23 / 326.23 Output Total 1800 / 3275 1725 / 1725 Balance 51.4 / -748.6 -1140.00 / -2375.00 -1398.77 / -1398.77 Lab / Micro Data Result Diagrams: 10/22/20 03:16 10/22/20 03:16 Labs: Laboratory Results - last 24 hr 10/21/20 10/21/20 10/21/20 11:19 13:08 13:08 WBC RBC Hgb Hct MCV MCH MCHC RDW Std Deviation RDW Coeff of Dexter Plt Count MPV Immature Gran % (Auto) Neut % (Auto) Lymph % (Auto) [place] % (Auto) Eos % (Auto) Baso % (Auto) Absolute Neuts (auto) Absolute Lymphs (auto) Nucleated RBC % APTT Cancelled Sodium Potassium Chloride Carbon Dioxide Anion Gap BUN Creatinine Estim Creat Clear Calc Est GFR (MDRD) Af Amer Est GFR (MDRD) Non-Af BUN/Creatinine Ratio Glucose Calcium Troponin I High Sens 3129.9 H* POC Glucose 128 H 10/21/20 10/21/20 10/21/20 13:45 14:09 16:20 WBC RBC Hgb Hct MCV MCH MCHC RDW Std Deviation RDW Coeff of Dexter Plt Count MPV Immature Gran % (Auto) Neut % (Auto) Lymph % (Auto) [place] % (Auto) Eos % (Auto) Baso % (Auto) Absolute Neuts (auto) Absolute Lymphs (auto) Nucleated RBC % APTT Cancelled 48.7 H Sodium Potassium Chloride Carbon Dioxide Anion Gap BUN Creatinine Estim Creat Clear Calc Est GFR (MDRD) Af Amer Est GFR (MDRD) Non-Af BUN/Creatinine Ratio Glucose Calcium Troponin I High Sens POC Glucose 177 H 10/21/20 10/21/20 10/22/20 20:55 21:40 03:16 WBC 5.9 RBC 4.52 L Hgb 12.0 L Hct 37.9 L MCV 83.8 MCH 26.5 L MCHC 31.7 L RDW Std Deviation 45.4 H RDW Coeff of Dexter 15.0 H Plt Count 214 MPV 10.5 Immature Gran % (Auto) 0.200 Neut % (Auto) 60.1 Lymph % (Auto) 25.9 [place] % (Auto) 12.5 H Eos % (Auto) 0.8 Baso % (Auto) 0.5 Absolute Neuts (auto) 3.6 Absolute Lymphs (auto) 1.53 Nucleated RBC % 0 APTT 57.9 H Sodium Potassium Chloride Carbon Dioxide Anion Gap BUN Creatinine Estim Creat Clear Calc Est GFR (MDRD) Af Amer Est GFR (MDRD) Non-Af BUN/Creatinine Ratio Glucose Calcium Troponin I High Sens POC Glucose 181 H 10/22/20 10/22/20 10/22/20 03:16 03:16 06:30 WBC RBC Hgb Hct MCV MCH MCHC RDW Std Deviation RDW Coeff of Dexter Plt Count MPV Immature Gran % (Auto) Neut % (Auto) Lymph % (Auto) [place] % (Auto) Eos % (Auto) Baso % (Auto) Absolute Neuts (auto) Absolute Lymphs (auto) Nucleated RBC % APTT 56.6 H Sodium 137 Potassium 3.5 Chloride 99 Carbon Dioxide 29.0 Anion Gap 9 BUN 19 H Creatinine 1.51 H Estim Creat Clear Calc 44.87 Est GFR (MDRD) Af Amer 59 L Est GFR (MDRD) Non-Af 49 L BUN/Creatinine Ratio 12.6 Glucose 171 H Calcium 9.1 Troponin I High Sens POC Glucose 154 H Micro: Microbiology 10/20/20 20:17 Mucosa - Nose SARS-CoV-2 Antigen (Rapid) - Final Rhythm Strip Rhythm Strip: A-fib Rate: 135 Cardiology Labs/Tests 10/21/20 13:08: APTT Cancelled 10/21/20 13:45: APTT Cancelled 10/21/20 14:09: APTT 48.7 H 10/21/20 20:55: APTT 57.9 H 10/22/20 03:16: WBC 5.9, RBC 4.52 L, Hgb 12.0 L, Hct 37.9 L, MCV 83.8, MCH 26.5 L, MCHC 31.7 L, Plt Count 214, MPV 10.5, Immature Gran % (Auto) 0.200, Neut % (Auto) 60.1, Lymph % (Auto) 25.9, [place] % (Auto) 12.5 H, Eos % (Auto) 0.8, Baso % (Auto) 0.5, Absolute Neuts (auto) 3.6, Nucleated RBC % 0 10/22/20 03:16: Sodium 137, Potassium 3.5, Chloride 99, Carbon Dioxide 29.0, Anion Gap 9, BUN 19 H, Creatinine 1.51 H, Est GFR (MDRD) Af Amer 59 L, Est GFR (MDRD) Non-Af 49 L, BUN/Creatinine Ratio 12.6, Glucose 171 H, Calcium 9.1 10/22/20 03:16: APTT 56.6 H Rhythm: Sinus rhythm; occasional PVCs; a brief episode potentially compatible with an ectopic atrial rhythm/tachycardia EKG: Sinus rhythm; first-degree AV block; left bundle branch block Radiography Diagnostic Testing: Radiology Impression Echocardiogram 10/20/20 21:36 Interpretation Summary The study was technically difficult. Contrast injection was performed. Mild segmental systolic dysfunction (see wall motion). The estimated ejection fraction is 45 %. Mild-Moderate (1-2+) mitral valve insufficiency. Trivial tricuspid valve insufficiency. Mild focal aortic valve calcification. Mild (1+) aortic valve insufficiency. Mild (1+) pulmonic valve insufficiency. Mildly dilated aortic root. Unable to estimate RV systolic pressure due to insufficient tricuspid regurgitant envelope. Diastolic function is indeterminate. Ordering Physician: Paulette Guerrero Referring Physician: MD Marlene Elver Performed By: Michael Garcia RCS Chest X-Ray 10/21/20 05:00 IMPRESSION: No active disease. Electronically Signed: Eze Albert MD at 15:22 EDT Tel , Service support , Physical Exam Const alert, oriented x3 and no apparent distress Orientation / Consciousness: awake HEENT normocephalic, head/scalp atraumatic and hearing grossly normal bilaterally Eyes PERRL, EOMs intact bilaterally and conjunctivae normal Neck full ROM, supple and no JVD Chest Chest: midline sternotomy incision Resp normal respiratory effort and clear to auscultation bilaterally Cardio regular rate, regular rhythm, S1 normal heart sound and S2 normal heart sound GI normal to inspection, nondistended, normoactive bowel sounds Extremity no pedal edema Skin no rashes or lesions noted Neuro oriented x3, moves all extremities, no focal motor deficits and no sensory deficits noted Psych mental status grossly normal Assessment & Plan Assessment/Plan (1) Non-ST elevation (NSTEMI) myocardial infarction: PLAN: The patient has findings compatible with a non-ST segment elevation [place]. It is unclear whether this is a type I event from his underlying CAD/CABG status versus a type II event brought on from non-CAD issues related to his other medical concerns. At the moment his cardiac enzymes have been trended and have decreased. His ECG is demonstrated no acute changes. He has undergone further evaluation with transthoracic echocardiogram as noted. A request has been made for outside medical records regarding his previous cardiac catheterization/PCI/CABG report. Those results are pending at this time. He has been asked to consider further evaluation with diagnostic cardiac catheterization. The procedure risk has been discussed with him and is agreeable to this. The tentative plan is to proceed with this once his CABG status is known. (2) Atrial fibrillation: QUALIFIERS: Atrial fibrillation type: paroxysmal Qualified Code(s): I48.0 - Paroxysmal atrial fibrillation PLAN: The patient remains in sinus rhythm at this time. He will continue medical management. Once he proceeds through his additional cardiovascular evaluation consideration will be given to the need for long-term anticoagulant therapy. (3) Flash pulmonary edema: PLAN: The patient was reported as having flash pulmonary edema. Again it is unclear whether this was brought out by his atrial fibrillation with RVR superimposed upon his other cardiovascular or noncardiac conditions. He does appear to be symptomatically improved status post medical management. He will continue to be followed. He will continue evaluation care as noted. (4) CAD (coronary artery disease): QUALIFIERS: Coronary Disease-Associated Artery/Lesion type: [place] artery [place] vs. transplanted heart: [place] heart PLAN: The patient has a history of underlying CAD. The details of his CAD status are unknown at this time. He will continue medical management. (5) S/P PTCA (percutaneous transluminal coronary angioplasty): PLAN: According to medical records received from [facility] the patient underwent PCI in 2000. The cardiac catheterization/PCI report is unavailable at this time. (6) S/P CABG (coronary artery bypass graft): PLAN: According to medical records received from [facility] the patient underwent CABG x3 in 2003. As previously noted the patient believes this occurred at [facility]. This appears to be an arterial revascularization as the patient has a left forearm incision and no lower extremity SVG harvest site incisions. The details of this report are unknown at this time. (7) Hypertensive emergency: PLAN: The patient will continue have his blood pressure monitored and his medicines adjusted. (8) HLD (hyperlipidemia): QUALIFIERS: Hyperlipidemia type: unspecified Qualified Code(s): E78.5 - Hyperlipidemia, unspecified PLAN: The patient should continue risk factor evaluation and care as his cardiovascular risk status. Addt'l Comments The above was discussed and reviewed with the patient. This note was generated using a voice recognition system and there may be incorrect words, spelling or punctuation that were not noted when reviewing the office note prior to saving. Procedure Criteria Type of Procedure Procedure Type: Elective Elective Risks - COVID COVID Risk Discussion: The surgeon/proceduralist and patient have discussed in detail the risk of exposure to and/or potential harm posed by the COVID-19 virus with having a surgery/procedure at this time versus the risk of delaying the surgery/procedure. It is not possible to know either the risk of delaying the surgery or procedure or chance of getting an infection with perfect accuracy, but a joint decision was made between the patient and the surgeon/proceduralist to proceed at this time with the scheduled surgery/procedure as indicated on the consent form.
[2020-10-22] MEDS: Pantoprazole Sodium 40 MG Tablet PO (09:23)
[2020-10-22] MEDS: Potassium Chloride Oral Tablet 20 MEQ 40 MEQ PO (09:24)
[2020-10-22 10:30] LABS: Bedside Glucose 154 mg/dL (70-110)
[2020-10-22 12:18] LABS: Pathologist Review Reviewed
--- NOTE | 2020-10-22 13:18 | NURSING ---
Report called to [facility] in director ge[facility] laboratory.
--- NOTE | 2020-10-22 13:25 | CASEMGMT ---
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 CM to attempt again later. S[place]en RN CM
--- NOTE | 2020-10-22 14:42 | PCM.PN.HOSP ---
Subjective Subjective Feels like his blood sugar as low as he is feeling jittery. States that he cannot sit down because it makes his legs jittery as well. Objective Data Objective Data Vital Signs: Vital Signs Temp Pulse Resp BP Pulse Ox 36.7 C 72 16 137/92 H 98 10/22/20 13:10 10/22/20 13:10 10/22/20 13:10 10/22/20 13:10 10/22/20 13:10 Oxygen Flow Rate (L/min) 2 Oxygen Delivery Method Room Air Weight: 101.2 kg Body Mass Index (BMI) 34.2 Intake & Output: Intake and Output for Last 24 Hours 10/20/20 10/21/20 10/22/20 23:59 23:59 23:59 Intake Total 51.4 / 51.4 660.00 / 900.00 386.23 / 386.23 Output Total 1800 / 3275 1925 / 1925 Balance 51.4 / -748.6 -1140.00 / -2375.00 -1538.77 / -1538.77 Lab / Micro Data Result Diagrams: 10/22/20 03:16 10/22/20 03:16 Labs: Laboratory Results - last 24 hr 10/20/20 10/21/20 10/21/20 18:47 16:20 20:55 WBC RBC Hgb Hct MCV MCH MCHC RDW Std Deviation RDW Coeff of Dexter Plt Count MPV Immature Gran % (Auto) Neut % (Auto) Lymph % (Auto) [place] % (Auto) Eos % (Auto) Baso % (Auto) Absolute Neuts (auto) Absolute Lymphs (auto) Nucleated RBC % Diff Path Review Reviewed APTT 57.9 H Sodium Potassium Chloride Carbon Dioxide Anion Gap BUN Creatinine Estim Creat Clear Calc Est GFR (MDRD) Af Amer Est GFR (MDRD) Non-Af BUN/Creatinine Ratio Glucose Calcium POC Glucose 177 H 10/21/20 10/22/20 10/22/20 21:40 03:16 03:16 WBC 5.9 RBC 4.52 L Hgb 12.0 L Hct 37.9 L MCV 83.8 MCH 26.5 L MCHC 31.7 L RDW Std Deviation 45.4 H RDW Coeff of Dexter 15.0 H Plt Count 214 MPV 10.5 Immature Gran % (Auto) 0.200 Neut % (Auto) 60.1 Lymph % (Auto) 25.9 [place] % (Auto) 12.5 H Eos % (Auto) 0.8 Baso % (Auto) 0.5 Absolute Neuts (auto) 3.6 Absolute Lymphs (auto) 1.53 Nucleated RBC % 0 [address] Review APTT Sodium 137 Potassium 3.5 Chloride 99 Carbon Dioxide 29.0 Anion Gap 9 BUN 19 H Creatinine 1.51 H Estim Creat Clear Calc 44.87 Est GFR (MDRD) Af Amer 59 L Est GFR (MDRD) Non-Af 49 L BUN/Creatinine Ratio 12.6 Glucose 171 H Calcium 9.1 POC Glucose 181 H 10/22/20 10/22/20 10/22/20 03:16 06:30 10:19 WBC RBC Hgb Hct MCV MCH MCHC RDW Std Deviation RDW Coeff of Dexter Plt Count MPV Immature Gran % (Auto) Neut % (Auto) Lymph % (Auto) [place] % (Auto) Eos % (Auto) Baso % (Auto) Absolute Neuts (auto) Absolute Lymphs (auto) Nucleated RBC % Diff Path Review APTT 56.6 H Sodium Potassium Chloride Carbon Dioxide Anion Gap BUN Creatinine Estim Creat Clear Calc Est GFR (MDRD) Af Amer Est GFR (MDRD) Non-Af BUN/Creatinine Ratio Glucose Calcium POC Glucose 154 H 154 H Micro: Microbiology 10/20/20 20:17 Mucosa - Nose SARS-CoV-2 Antigen (Rapid) - Final Radiography Diagnostic Testing: Radiology Impression Echocardiogram 10/20/20 21:36 Interpretation Summary The study was technically difficult. Contrast injection was performed. Mild segmental systolic dysfunction (see wall motion). The estimated ejection fraction is 45 %. Mild-Moderate (1-2+) mitral valve insufficiency. Trivial tricuspid valve insufficiency. Mild focal aortic valve calcification. Mild (1+) aortic valve insufficiency. Mild (1+) pulmonic valve insufficiency. Mildly dilated aortic root. Unable to estimate RV systolic pressure due to insufficient tricuspid regurgitant envelope. Diastolic function is indeterminate. Ordering Physician: Paulette Guerrero Referring Physician: MD Marlene Elver Performed By: Michael Garcia RCS Chest X-Ray 10/21/20 05:00 IMPRESSION: No active disease. Electronically Signed: Eze Albert MD at 15:22 EDT Tel , Service support , Rhythm Strip Rhythm Strip: A-fib Rate: 135 Physical Exam Const alert HEENT Head and Scalp: normocephalic Resp normal respiratory effort, no retractions, no use of accessory muscles and clear to auscultation bilaterally Cardio regular rate, regular rhythm, S1 normal heart sound and S2 normal heart sound GI normal to inspection, nondistended, normoactive bowel sounds, soft to palpation, non-tender and non-distended Extremity normal to inspection, full ROM and no clubbing, cyanosis or edema Neuro oriented x3 Sensorium / Orientation: awake, alert and oriented to person Psych Mood & Affect: anxious Assessment & Plan Assessment/Plan (1) Non-ST elevation (NSTEMI) myocardial infarction: (2) Paroxysmal atrial fibrillation with RVR: (3) Hypertensive emergency: (4) Acute respiratory failure with hypoxia: PLAN: 1. Acute Hypoxic Respiratory Failure Resolved secondary to Acute Decompensated CHF, Unclear Type with suspected flash pulmonary edema with elevated cardiac enzymes, suspected NSTEMI: Patient administered IV lasix in the ED, 2. Paroxysmal atrial fibrillation with RVR: Now in NSR EKG in ED w/ atrial fibrillation w/ RVR however eventually converted to sinus rhythm. Patient administered Cardizem bolus in ED. Metoprolol tartrate Heparin gtt 3. Hypertensive emergency: Associate with #1, #2, clinically improved, blood pressures improving, transiently on nitroglycerin which has been discontinued given usage of Cardizem bolus, pressure now 121/81, will continue patient home regimen, as needed IV hydralazine. 4. NSTEMI Cardiology on consult Echo Heparin gtt Metoprolol, losartan, atorvastatin Cardiology waiting on CABG reports. told nursing that patient had a CABG in March 2003 by an physician. Like this was Dr. Sosa at [facility]. Waiting on records. 5. Acute CHF exacerbation. unclear type echo ordered furosemide Additional Co-morbidities: CAD: Status post CABG x4 and PCI, continue aspirin, heparin drip, metoprolol, losartan, not on statin therapy with FLP pending as noted. Hyperlipidemia: Continue home statin regimen. AM FLP. Diabetes mellitus type II with neuropathy: Hold oral home regimen, once respiratory status improved allow ADA diet, accu checks w/ ISS, continue patient home gabapentin regimen. Hypothyroidism: Continue home thyroid supplementation regimen, TSH pending. PRAKASH: BiPAP nightly however currently continuous given presentation as noted. Obesity: Weight loss and lifestyle changes encouraged. GERD: Continue PPI. DVT prophylaxis: SCDs, heparin drip as noted. Charges/Coding Visit Charges Inpatient E&M: 13895 Subs Hosp L2
--- NOTE | 2020-10-22 15:20 | CASEMGMT ---
BETZAIDA CAMACHO assessment: Face to Face with patient for initial transition planning/care coordination assessment. BETZAIDA CAMACHO introduced self and role at [facility], pt voices understanding and consents to assessment. 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 Pt is in no distress and on room air. Care providers, pharmacy, and demographics verified. Presentation: Increased SOB Admitting dx: Resp failure, CHF, PAF PCP: Marlene Specialists: jose Foreman Preferred Pharmacy: Pt is unsure of pharmacy and Judith HUSTON to ask when she returns. Insurance: MCR A/B, MMO Prescription Benefit: Yes Living Will/HPOA: Pt states has LW/HPOA and per Judith HUSTON, brought paperwork when pt was admitted this visit. LNOK: Vira Ball, Living Arrangements: Pt states lives with in 1 story home and states no concerns at home. Pt states is independent with ADL's. Transportation: Pt states drives self and states no transportation concerns. DME/HHC: Pt states has a cane at home and states no need for any further DME. Pt states no hx of HHC or SNF. Pt states no concerns with going home at time of discharge. Pt is retired. Pt states does not smoke cigarettes but does drink a couple beers daily. Pt states no further concerns/needs. CM to follow for any further discharge planning/needs. Advised pt to ask for CM if any further questions/concerns/needs arise, voices understanding. Pt Goal: Home Plan: Home [place] BTEZAIDA CAMACHO
[2020-10-22] MEDS: 0.9% Normal Saline 1,000 ML 50 ML IV (15:29)
[2020-10-22] MEDS: Isosorbide Mononitrate 30 MG Tablet PO (15:29)
[2020-10-22] MEDS: 0.9% Saline Lock 10 ML Syringe IV (15:29)
--- NOTE | 2020-10-22 15:41 | CL.D_ITS ---
Patient Name: DANI SHETH Study Date: 10/22/2020 Performing: Juve Lan MD Ht: 69 inches 175 cm : 1950 Wt: 223 lbs 101 kg Age: 70 Gender: male BSA: 2.16 PROCEDURE(S) PERFORMED [id number]/LV/CABG CLINICAL PROFILE AND INDICATIONS Indications: ACS > 24 hrs, LV Dysfunction, Suspected CAD Heart Failure: NYHA Class: 3, Newly Diagnosed: Yes, Heart Failure Type: Systolic Stress/Imaging Stress/Image Study Performed: No Angina Classification Anginal Classification w/in 2 Weeks: Anginal Equivalent Dyspnea CAD Presentations: Other: Dyspnea CONCLUSIONS Elevated Left Ventricular End Diastolic Pressure Segmented LV systolic dysfunction- Mild LVEF: by LV gram 40 % [place] Multivessel CAD PIEDRA to LAD: patent Radial Artery graft to DX1: patent Left to Left collateral flow Right to Left collateral flow Mitral Valve Insufficiency Mild - Moderate RECOMMENDATIONS Risk factor modification Medical therapy Case discussed / reviewed with Dr. Hanna from Interventional Cardiology DESCRIPTION OF PROCEDURE The patient arrived to the procedure lab. The risks and benefits of the procedure as well as a full d escription of our services here and current unavailability of surgical backup were fully explained to the patient and/or their significant other prior to the catheterization. The Timeout was completed, verifying the correct patient and procedure. The patient's procedural site was prepped and draped in the usual fashion. Local anesthetic was given subcutaneously to right groin region with Lidocaine 2%. Using a modified Seldinger technique, arterial access was obtained via the right femoral artery, a 4 Fr sheath was inserted Left Coronary Artery selective angiography was performed in multiple views us ing a 4 Fr. JL5 catheter. Right Coronary Artery selective angiography was then performed in multiple views using a 4 Fr. 3DRC catheter. Radial Artery graft to the DIAG 1 selective angiography was perfor med in multiple views using a 4 Fr. 3DRC catheter. Left internal mammary artery graft to the LAD selective angiography was performed in multiple views using a 4 Fr. IM catheter. Left interna l mammary artery graft to the LAD selective angiography was performed in multiple views using a 4 Fr. JR4 catheter. Right internal mammary artery graft to the RCA selective angiography was performed in multiple views using a 4 Fr. JR4 catheter. Left Ventriculography was performed in MARTINEZ projection usin g a 4 Fr. Pigtail catheter. LV to AO pullback pressures were then recorded.The arterial sheath was pu lled and manual compression applied until hemostasis is achieved. CORONARY ANGIOGRAPHY DOMINANCE: Right Dominant LEFT HEART ASSESSMENT Left Ventricular Ejection Fraction: by LV Gram 40 % Inferior Basal Akinesis. Inferior Mid Hypokinesis Elevated Left Ventricular End Diastolic Pressure LVEDP: 33 mmHg LEFT MAIN: Mild luminal irregularities LEFT ANTERIOR DESCENDING ARTERY: OSTIAL LAD: eccentric: 90 % Stenosis PROX LAD: Previously placed stent has an instent diffuse: 50 % restenosis MID LAD: is occluded, mid to distal (small vessel): fills from PIEDRA graft flow and right to left mabel ateral flow with no angiographically signifcant appearing disease distal to the graft attachment DIAGONAL 1: small vessel: proximal - fills from radial artery graft flow with no angiographically sig nificant appearing disease distal to the graft attachment CIRCUMFLEX ARTERY: PROX CIRC: Previously placed stent is occluded MID CIRC: fills late, faintly, and partially from left to left and right to left collateral flow RIGHT CORONARY ARTERY: Mild luminal irregularities RT PLV: proximal: eccentric: 75 % Stenosis RT PDA: Proximal - small vessel: eccentric: 75 % Stenosis, Distal - small vessel: eccentric: 75 % Brian nosis GRAFTS: PIEDRA graft to the Mid LAD is patent Radial graft to the 1st Diagonal is patent COLLATERAL FLOW: Collateral flow from Left to Left Collateral flow from Right to Left VALVE FINDINGS: Mitral Valve Insufficiency - Grade 1 - Grade 2 COMPLICATIONS No Complications PROCEDURE MEDICATIONS Versed 1 mg IV Oxygen: 2 L/min via nasal cannula SUMMARY OF HEMODYNAMIC DATA Time AIR REST ECG 13:29:54 AO 156/100 (126) SA 13:47:49 LV 164/18, 39 14:40:31 LV 163/20, 33 14:40:41 LV 174/17, 41 14:42:01 LVp 180/19, 39 14:42:08 AOp 181/89 (124) 14:42:13 AO 181/90 (126) 14:42:14 Signed By Juve Lan MD On 10/22/2020 15:40:40 Juve Lan MD
[2020-10-22 15:46] LABS: Bedside Glucose 108 mg/dL (70-110)
--- NOTE | 2020-10-22 19:45 | NURSING ---
Walked patient length of hallway and back to room pt tolerated well. Dressing to right groin remains intact, no bleeding, bruising, hematoma or drainage noted. Pulse remains intact to rt lower extremity. No c/o pain, numbness or tingling. Denies any chest pain at this time.
[2020-10-22] MEDS: Furosemide 40 MG/4 ML Vial IV (20:22)
[2020-10-22] MEDS: Gabapentin 600 MG Tablet PO (21:14)
[2020-10-22] MEDS: Nystatin Powder 15gm Bottle 1 APPLIC TOPICAL (21:14)
[2020-10-22] MEDS: Atorvastatin Calcium 40 MG Tablet PO (21:14)
[2020-10-22] MEDS: Insulin Lispro 100 UNIT/ML INSULN.PEN SC (21:15)
[2020-10-22] MEDS: Amiodarone 200 MG Tablet PO (21:26)
[2020-10-22 21:36] LABS: Bedside Glucose 254 mg/dL (70-110)
[2020-10-23] VITALS (9 sets, daily range): BP systolic 102–133; BP diastolic 50–77; PULSE 57–91; RESP 12–18; TEMP 36.1–36.2; O2SAT 94–96
--- NOTE | 2020-10-23 05:55 | EKG12_ITS ---
Test Reason : AM Blood Pressure : / mmHG Vent. Rate : 070 BPM Atrial Rate : 070 BPM P-R Int : 214 ms QRS Dur : 142 ms QT Int : 476 ms P-R-T Axes : 000 016 126 degrees QTc Int : 514 ms Sinus rhythm with 1st degree A-V block Left bundle branch block Abnormal ECG When compared with ECG of 22-OCT-2020 05:30, MANUAL COMPARISON REQUIRED, DATA IS UNCONFIRMED Confirmed by KALPANA DORANTES, OMAR ([id number]), continuity editor ANTELMO THOMPSON ([id number]) on 10/29/2020 7:40:42 AM Referred By: ROJELIO Confirmed By:OMAR ACUNA MD
[2020-10-23 06:41] LABS: Bedside Glucose 136 mg/dL (70-110)
[2020-10-23 07:03] LABS: Absolute Lymphocyte Count 2.05 X10^3/uL (0.83-4.51); Absolute Neutrophil Count 4.4 X10^3/uL (2.0-7.7); Basophil# 0.04 X10^3/uL; Basophil% 0.5 % (0-1); Eosinophils% 1.4 % (0-5); Hematocrit 41.1 % (40-54); Lymphocyte # 2.05 X10^3/ul (0.83-4.51); Lymphocyte % 28.1 % (19-41); Mean Corp Hgb Conc 31.6 g/dL (32-36); Mean Corpuscular Hgb 26.7 pg (27.0-32.0); Mean Corpuscular Volume 84.4 fL (80-94); Mean Platelet Vol. 10.5 fl (6.2-12.0); Monocyte# 0.73 X10^3/uL; NRBC Flagged by Analyzer 0 % (0-5); Neutrophil # 4.35 X10^3/uL (2.7-7.7); Neutrophil % 59.7 % (47-70); Platelet Count 257 K/mm3 (150-450); RBC Distribution Width CV 15.3 % (11.6-14.6); RBC Distribution Width SD 46.9 fl (35.1-43.9); Red Blood Count 4.87 M/mm3 (4.6-6.2); White Blood Count 7.3 K/mm3 (4.4-11.0)
[2020-10-23 07:42] LABS: Anion Gap 11 (5-15); BUN 22 mg/dL (7-18); BUN/Creat Ratio 12.5 RATIO (10-20); Calcium,Total 9.3 mg/dL (8.5-10.1); Chloride 99 mmol/L (98-107); Creatinine, Serum 1.76 mg/dL (0.70-1.30); EST Glomerular Filtration Rate 41 mL/min (>60); Est Glom Filt Rate - Afr Amer 49 mL/min (>60); Glucose 148 mg/dL (74-106); Potassium 3.5 mmol/L (3.5-5.1); Sodium Level 137 mmol/L (136-145)
[2020-10-23] MEDS: Aspirin E.C. 81 MG Tablet PO (07:53)
[2020-10-23] MEDS: Pantoprazole Sodium 40 MG Tablet PO (07:53)
[2020-10-23] MEDS: Losartan Potassium 100 MG Tablet PO (07:54)
[2020-10-23] MEDS: Thyroid 60 MG Tablet 120 MG PO (07:55)
[2020-10-23] MEDS: Metoprolol Tartrate 25 MG Tablet PO ×2 (07:56→12:41)
--- NOTE | 2020-10-23 08:20 | PN.CARD_ITS ---
Subjective Subjective The patient is aware he can alert. He states he feels better overall. He is not complaining of any ongoing chest discomfort or difficulty breathing at this time. He has not sensed any alteration in his cardiac rate or rhythm. Objective Data Vital Signs: Vital Signs Temp Pulse Resp BP Pulse Ox 97.0 F L 70 18 133/77 H 94 10/23/20 07:49 10/23/20 07:56 10/23/20 07:49 10/23/20 07:49 10/23/20 07:49 Oxygen Flow Rate (L/min) 2 Oxygen Delivery Method Room Air Weight: 224 lb 6.889 oz Body Mass Index (BMI) 34.2 Intake & Output: Intake and Output for Last 24 Hours 10/21/20 10/22/20 10/23/20 23:59 23:59 23:59 Intake Total 660.00 / 900.00 687.90 / 987.90 420 / 420 Output Total 1800 / 3275 1925 / 2425 700 / 700 Balance -1140.00 / -2375.00 -1237.10 / -1437.10 -280 / -280 Lab / Micro Data Result Diagrams: 10/23/20 06:20 10/23/20 06:20 Labs: Laboratory Results - last 24 hr 10/20/20 10/22/20 10/22/20 18:47 10:19 15:35 WBC RBC Hgb Hct MCV MCH MCHC RDW Std Deviation RDW Coeff of Dexter Plt Count MPV Immature Gran % (Auto) Neut % (Auto) Lymph % (Auto) [place] % (Auto) Eos % (Auto) Baso % (Auto) Absolute Neuts (auto) Absolute Lymphs (auto) Nucleated RBC % Diff Path Review Reviewed Sodium Potassium Chloride Carbon Dioxide Anion Gap BUN Creatinine Estim Creat Clear Calc Est GFR (MDRD) Af Amer Est GFR (MDRD) Non-Af BUN/Creatinine Ratio Glucose Calcium POC Glucose 154 H 108 10/22/20 10/23/20 10/23/20 21:08 06:20 06:20 WBC 7.3 RBC 4.87 Hgb 13.0 Hct 41.1 MCV 84.4 MCH 26.7 L MCHC 31.6 L RDW Std Deviation 46.9 H RDW Coeff of Dexter 15.3 H Plt Count 257 MPV 10.5 Immature Gran % (Auto) 0.300 Neut % (Auto) 59.7 Lymph % (Auto) 28.1 [place] % (Auto) 10.0 Eos % (Auto) 1.4 Baso % (Auto) 0.5 Absolute Neuts (auto) 4.4 Absolute Lymphs (auto) 2.05 Nucleated RBC % 0 Diff Path Review Sodium 137 Potassium 3.5 Chloride 99 Carbon Dioxide 27.0 Anion Gap 11 BUN 22 H Creatinine 1.76 H Estim Creat Clear Calc 38.50 Est GFR (MDRD) Af Amer 49 L Est GFR (MDRD) Non-Af 41 L BUN/Creatinine Ratio 12.5 Glucose 148 H Calcium 9.3 POC Glucose 254 H 10/23/20 06:36 WBC RBC Hgb Hct MCV MCH MCHC RDW Std Deviation RDW Coeff of Dexter Plt Count MPV Immature Gran % (Auto) Neut % (Auto) Lymph % (Auto) [place] % (Auto) Eos % (Auto) Baso % (Auto) Absolute Neuts (auto) Absolute Lymphs (auto) Nucleated RBC % Diff Path Review Sodium Potassium Chloride Carbon Dioxide Anion Gap BUN Creatinine Estim Creat Clear Calc Est GFR (MDRD) Af Amer Est GFR (MDRD) Non-Af BUN/Creatinine Ratio Glucose Calcium POC Glucose 136 H Micro: Microbiology 10/20/20 20:17 Mucosa - Nose SARS-CoV-2 Antigen (Rapid) - Final Rhythm Strip Rhythm Strip: A-fib Rate: 135 Cardiology Labs/Tests 10/23/20 06:20: Sodium 137, Potassium 3.5, Chloride 99, Carbon Dioxide 27.0, Anion Gap 11, BUN 22 H, Creatinine 1.76 H, Est GFR (MDRD) Af Amer 49 L, Est GFR (MDRD) Non-Af 41 L, BUN/Creatinine Ratio 12.5, Glucose 148 H, Calcium 9.3 10/23/20 06:20: WBC 7.3, RBC 4.87, Hgb 13.0, Hct 41.1, MCV 84.4, MCH 26.7 L, MCHC 31.6 L, Plt Count 257, MPV 10.5, Immature Gran % (Auto) 0.300, Neut % (Auto) 59.7, Lymph % (Auto) 28.1, [place] % (Auto) 10.0, Eos % (Auto) 1.4, Baso % (Auto) 0.5, Absolute Neuts (auto) 4.4, Nucleated RBC % 0 Rhythm: Cardiac rhythm findings compatible with paroxysmal atrial fibrillation EKG: Sinus rhythm with first-degree AV block with left bundle branch block Cardiac Cath: CONCLUSIONS Elevated Left Ventricular End Diastolic Pressure Segmented LV systolic dysfunction- Mild LVEF: by LV gram 40 % [place] Multivessel CAD PIEDRA to LAD: patent Radial Artery graft to DX1: patent Left to Left collateral flow Right to Left collateral flow Mitral Valve Insufficiency Mild - Moderate RECOMMENDATIONS Risk factor modification Medical therapy Case discussed / reviewed with Dr. Hanna from Interventional Cardiology CORONARY ANGIOGRAPHY DOMINANCE: Right Dominant LEFT HEART ASSESSMENT Left Ventricular Ejection Fraction: by LV Gram 40 % Inferior Basal Akinesis. Inferior Mid Hypokinesis Elevated Left Ventricular End Diastolic Pressure LVEDP: 33 mmHg LEFT MAIN: Mild luminal irregularities LEFT ANTERIOR DESCENDING ARTERY: OSTIAL LAD: eccentric: 90 % Stenosis PROX LAD: Previously placed stent has an instent diffuse: 50 % restenosis MID LAD: is occluded, mid to distal (small vessel): fills from PIEDRA graft flow and right to left collateral flow with no angiographically signifcant appearing disease distal to the graft attachment DIAGONAL 1: small vessel: proximal - fills from radial artery graft flow with no angiographically significant appearing disease distal to the graft attachment CIRCUMFLEX ARTERY: PROX CIRC: Previously placed stent is occluded MID CIRC: fills late, faintly, and partially from left to left and right to left collateral flow RIGHT CORONARY ARTERY: Mild luminal irregularities RT PLV: proximal: eccentric: 75 % Stenosis RT PDA: Proximal - small vessel: eccentric: 75 % Stenosis, Distal - small vessel: eccentric: 75 % Stenosis GRAFTS: PIEDRA graft to the Mid LAD is patent Radial graft to the 1st Diagonal is patent COLLATERAL FLOW: Collateral flow from Left to Left Collateral flow from Right to Left VALVE FINDINGS: Mitral Valve Insufficiency - Grade 1 - Grade 2 Physical Exam Const alert, oriented x3 and no apparent distress Orientation / Consciousness: awake HEENT normocephalic, head/scalp atraumatic and hearing grossly normal bilaterally Eyes PERRL, EOMs intact bilaterally and conjunctivae normal Neck full ROM, supple and no JVD Chest Chest: midline sternotomy incision Resp normal respiratory effort Resp Narrative: Minimal: Improved compared to previous examinations Auscultation: diminished lung sounds bilateral lower Cardio regular rate, regular rhythm, S1 normal heart sound and S2 normal heart sound Peripheral Pulses: femoral pulses present right (Right inguinal area: No obvious bruit; no obvious hematoma) 2+ GI normal to inspection, nondistended, normoactive bowel sounds Extremity no pedal edema Extremity Narrative: Right little area: no obvious bruit; no obvious hematoma Skin no rashes or lesions noted Neuro oriented x3, moves all extremities, no focal motor deficits and no sensory deficits noted Psych mental status grossly normal Assessment & Plan Assessment/Plan (1) Non-ST elevation (NSTEMI) myocardial infarction: PLAN: The patient has findings compatible with a non-ST segment elevation AR. At the present time there is concern that this is a type II event brought on by his findings of atrial fibrillation with RVR and blood pressure changes superimposed upon his underlying cardiovascular disease process. He has undergone additional evaluation with diagnostic cardiac catheterization. The results are as noted. At the moment he is continuing medical therapy. He was not felt to be a candidate for further catheter-based or surgical based revascularization. (2) Atrial fibrillation: QUALIFIERS: Atrial fibrillation type: paroxysmal Qualified Code(s): I48.0 - Paroxysmal atrial fibrillation PLAN: The patient remains in sinus rhythm at this time with episodes of PAF. He will continue medical management. This will include rate control therapy, antiarrhythmic therapy, and initiation of anticoagulant therapy. With respect to anticoagulant therapy the patient does not want to take agent such as warfarin/Coumadin. Thus he will be placed on a novel oral anticoagulant such as apixaban. Based upon his current renal function the dose will be adjusted. This can be altered over time depending upon his renal function. (3) Flash pulmonary edema: PLAN: The patient was reported as having flash pulmonary edema. Again it is unclear whether this was brought out by his atrial fibrillation with RVR superimposed upon his other cardiovascular or noncardiac conditions. He does appear to be symptomatically improved status post medical management. He will continue to be followed. He will continue medical therapy with adjustment of diuretics as deemed appropriate. (4) CAD (coronary artery disease): QUALIFIERS: Coronary Disease-Associated Artery/Lesion type: [place] artery [place] vs. transplanted heart: [place] heart PLAN: The patient has a history of underlying CAD. He has undergone diagnostic cardiac catheterization as noted. He will continue medical management. (5) S/P PTCA (percutaneous transluminal coronary angioplasty): PLAN: According to medical records received from [facility] the patient underwent PCI in 2000. It appears based upon his cardiac catheterization that he has had PCI/stenting procedures performed to the LAD and LCx distributions in the past. His cardiac catheterization report is as noted. (6) S/P CABG (coronary artery bypass graft): PLAN: According to medical records received from [facility] the patient underwent CABG x3 in 2003. According to his cardiac catheterization performed it appears he had CABG x2 which included a PIEDRA to the LAD and a radial artery graft to the diagonal branch system. It does not appear the CANDICE was utilized as a graft. Also there is no history of SVG graft harvest. Based upon his cardiac catheterization both his arterial grafts were patent. (7) Hypertensive emergency: PLAN: The patient will continue have his blood pressure monitored and his medicines adjusted. (8) HLD (hyperlipidemia): QUALIFIERS: Hyperlipidemia type: unspecified Qualified Code(s): E78.5 - Hyperlipidemia, unspecified PLAN: The patient should continue risk factor evaluation and care as his cardiovascular risk status. Addt'l Comments Overall, from a cardiac standpoint, the patient does appear to be symptomatically improved. He will continue medical therapy with adjustment. He will need to be followed over time with respect to his complex cardiovascular condition. The above was discussed and reviewed with the patient. He was ag reeable to this approach. This note was generated using a voice recognition system and there may be incorrect words, spelling or punctuation that were not noted when reviewing the office note prior to saving.
--- NOTE | 2020-10-23 10:31 | DCINST_ITS ---
Discharge Instructions Diet Discharge Diet: Low fat / Low cholesterol and 2000 Calorie Control Diet Activity Discharge Activity: Return to Normal Activity Dressing / Incision Call your doctor if you observe: Shortness of breath and Chest pain Follow Up Care Test Results: Test results from this visit will be discussed in further detail at your follow-up appointment, if applicable. Discharge Plan Admission Admit Date/Time: 10/20/20 20:44 Attending Provider: Jacky Monreal Primary Care Provider: Elver Rosario Consulting Providers: Kendall Hanna ; [place] Mishra Discharge Orders/Prescriptions Prescriptions: New acetaminophen [Tylenol] 325 mg Tablet 650 mg PO Q4H PRN PRN (Reason: Fever, pain -01/26) Qty: 0 RF: 0 amiodarone 200 mg Tablet 200 mg PO TID Qty: 60 RF: 0 amlodipine 5 mg Tablet 5 mg PO DAILY Qty: 30 RF: 0 Eliquis 2.5 mg Tablet 2.5 mg PO BID Qty: 60 RF: 0 atorvastatin 40 mg Tablet 40 mg PO QHS Qty: 30 RF: 0 furosemide 40 mg Tablet 40 mg PO DAILY Qty: 30 RF: 0 isosorbide mononitrate 30 mg Tablet Extended Release 24 Hr 30 mg PO DAILY Qty: 30 RF: 0 Continued lecithin 1,200 mg Capsule 1,200 mg PO DAILY RF: 0 glipizide 10 mg Tablet 20 mg PO DAILY RF: 0 pantoprazole 40 mg Tablet,Delayed Release (Dr/Ec) 40 mg PO DAILY RF: 0 gabapentin 300 mg Capsule 600 mg PO QHS RF: 0 aspirin 81 mg Tablet 81 mg PO DAILY RF: 0 losartan 100 mg Tablet 150 mg PO DAILY RF: 0 metoprolol tartrate 25 mg Tablet 25 mg PO DAILY RF: 0 cholecalciferol (vitamin D3) [Vitamin D3] 25 mcg (1,000 unit) Tablet 25 mcg PO DAILY RF: 0 thyroid (pork) [[place] Thyroid] 60 mg Tablet 120 mg PO DAILY RF: 0 vitamin T59-itgfh acid 500-400 mcg Tablet 1 tab PO DAILY RF: 0 Held metformin 1,000 mg Tablet 1,000 mg PO BID RF: 0 Hold Instructions: Resume on 10/27/20. Referrals / Follow Up: Elver Rosario MD [Primary Care Provider] - Within 1 Week Juve Lan MD [STAFF PHYSICIAN] - Within 1 Month Disposition Disposition (needs filled in before D/C Order can be placed): Home, Self Care
--- NOTE | 2020-10-23 10:41 | DS.PCM_ITS ---
Providers Date of Admission: 10/20/20 Primary Care Physician: Dr. Elver Rosario MD Consultations 10/20/20 21:36 Consult: Cardiology Routine Consulting Provider: Kendall Hanna Reason for Consult: Resp failure, CHF/Flash Pulm edema, PAF w/ RVR, Elevated trop EMERGENT Consult: No Notified: Yes Date Notified: 10/20/20 Time Notified: 20:40 Method of Notification: Per ED. Consult: Site Controller / Pulmonary Medicine Routine Consulting Provider: [place] Mishra Reason for Consult: Resp failure, CHF exac, Flash pulm edema, PAF w/ RVR, elevated trop EMERGENT Consult: No Notified: Yes Date Notified: 10/20/20 Time Notified: 20:44 Method of Notification: cortext Reason For Visit: RESP FAILURE, CHF EXAC/FLASH PULM EDEMA, PAF Diagnosis Discharge Diagnosis (1) Non-ST elevation (NSTEMI) myocardial infarction: Status: Acute Code(s): I21.4 - Non-ST elevation (NSTEMI) myocardial infarction (2) Atrial fibrillation: Status: Acute Code(s): I48.91 - Unspecified atrial fibrillation Qualifiers: Atrial fibrillation type: paroxysmal Qualified Code(s): I48.0 - Paroxysmal atrial fibrillation (3) Flash pulmonary edema: Status: Acute Code(s): J81.0 - Acute pulmonary edema (4) CAD (coronary artery disease): Status: Acute Code(s): I25.10 - Atherosclerotic heart disease of [place] coronary artery without angina pectoris Qualifiers: Coronary Disease-Associated Artery/Lesion type: [place] artery [place] vs. transplanted heart: [place] heart (5) S/P PTCA (percutaneous transluminal coronary angioplasty): Status: Acute Code(s): Z98.61 - Coronary angioplasty status (6) S/P CABG (coronary artery bypass graft): Status: Acute Code(s): Z95.1 - Presence of aortocoronary bypass graft (7) Hypertensive emergency: Status: Acute Code(s): I16.1 - Hypertensive emergency (8) HLD (hyperlipidemia): Status: Acute Code(s): E78.5 - Hyperlipidemia, unspecified Qualifiers: Hyperlipidemia type: unspecified Qualified Code(s): E78.5 - Hyperlipidemia, unspecified Medications at Discharge Home Medications aspirin 81 mg PO DAILY 10/20/20 cholecalciferol (vitamin D3) [Vitamin D3] 25 mcg PO DAILY 10/20/20 gabapentin 600 mg PO QHS 10/20/20 glipizide 20 mg PO DAILY 10/20/20 lecithin 1,200 mg PO DAILY 10/20/20 losartan 150 mg PO DAILY 10/20/20 metformin 1,000 mg PO BID 10/20/20 metoprolol tartrate 25 mg PO DAILY 10/20/20 pantoprazole 40 mg PO DAILY 10/20/20 thyroid (pork) [[place] Thyroid] 120 mg PO DAILY 10/20/20 vitamin O69-uplgu acid 1 tab PO DAILY 10/20/20 acetaminophen [Tylenol] 650 mg PO Q4H PRN PRN #0 tab 10/23/20 amiodarone 200 mg PO TID #60 tab 10/23/20 amlodipine 5 mg PO DAILY #30 tab 10/23/20 apixaban [Eliquis] 2.5 mg PO BID #60 tab 10/23/20 atorvastatin 40 mg PO QHS #30 tab 10/23/20 furosemide 40 mg PO DAILY #30 tab 10/23/20 isosorbide mononitrate 30 mg PO DAILY #30 tab 10/23/20 Hospital Course Operations None Procedures 2-D Echocardiogram and Cardiac catheterization Summary of Care Provided Minutes Spent on Discharge: 31 Hospital Course: Presents with shortness of breath and nausea vomiting. Patient found to have acute hypoxic respiratory failure, CHF exacerbation atrial fibrillation with RVR. Patient did well and A. fib with RVR did resolve, r espiratory failure resolved as well and patient was started on IV furosemide. Patient did have a hypertensive emergency that subsequently has resolved as well. And patient did have a non-ST elevation myocardial infarction. For the atrial fibrillation, patient was initially started on a diltiazem but then transition over to metoprolol tartrate. Patient was on heparin drip. For the non-ST elevation myocardial infarction, troponins maxed at 4270. On October 22, patient did undergo a left heart catheterization that showed an EF of 40% that was unremarkable and showed patent bypass grafts. So the likely patient had demand ischemia related with atrial fibrillation with RVR as well as CHF. Medi cations were further optimized and patient has remained stable during the remainder of his hospitalization. Patient will follow up with primary care physician as well as cardiology as outpatient. Physical Exam Const alert HEENT normocephalic and moist oral mucous membranes Eyes PERRL Neck no lymphadenopathy Resp normal respiratory effort and clear to auscultation bilaterally Cardio regular rate, regular rhythm, S1 normal heart sound and S2 normal heart sound GI normal to inspection, nondistended, normoactive bowel sounds, soft to palpation, non-tender and non-distended Extremity normal to inspection Weight / BMI Weight Weight: 101.8 kg Body Mass Index (BMI) 34.2 ABG / Lab / Microbiology Data Result Diagrams: 10/23/20 06:20 10/23/20 06:20 Laboratory: Laboratory Results - last 24 hr 10/20/20 10/22/20 10/22/20 18:47 15:35 21:08 WBC RBC Hgb Hct MCV MCH MCHC RDW Std Deviation RDW Coeff of Dexter Plt Count MPV Immature Gran % (Auto) Neut % (Auto) Lymph % (Auto) [place] % (Auto) Eos % (Auto) Baso % (Auto) Absolute Neuts (auto) Absolute Lymphs (auto) Nucleated RBC % Diff Path Review Reviewed Sodium Potassium Chloride Carbon Dioxide Anion Gap BUN Creatinine Estim Creat Clear Calc Est GFR (MDRD) Af Amer Est GFR (MDRD) Non-Af BUN/Creatinine Ratio Glucose Calcium POC Glucose 108 254 H 10/23/20 10/23/20 10/23/20 06:20 06:20 06:36 WBC 7.3 RBC 4.87 Hgb 13.0 Hct 41.1 MCV 84.4 MCH 26.7 L MCHC 31.6 L RDW Std Deviation 46.9 H RDW Coeff of Dexter 15.3 H Plt Count 257 MPV 10.5 Immature Gran % (Auto) 0.300 Neut % (Auto) 59.7 Lymph % (Auto) 28.1 [place] % (Auto) 10.0 Eos % (Auto) 1.4 Baso % (Auto) 0.5 Absolute Neuts (auto) 4.4 Absolute Lymphs (auto) 2.05 Nucleated RBC % 0 Diff Path Review Sodium 137 Potassium 3.5 Chloride 99 Carbon Dioxide 27.0 Anion Gap 11 BUN 22 H Creatinine 1.76 H Estim Creat Clear Calc 38.50 Est GFR (MDRD) Af Amer 49 L Est GFR (MDRD) Non-Af 41 L BUN/Creatinine Ratio 12.5 Glucose 148 H Calcium 9.3 POC Glucose 136 H Microbiology: Microbiology 10/20/20 20:17 Mucosa - Nose SARS-CoV-2 Antigen (Rapid) - Final D/C Instructions Discharge Diet: Low fat / Low cholesterol and 2000 Calorie Control Diet Call your doctor if you observe: Shortness of breath and Chest pain Meaningful Use Info Meaningful Use Diagnoses (Choose all that apply): AMI and CHF AMI/Post PCI/Angioplasty Aspirin given w/in 24hrs of arrival?: Yes ASA at discharge?: Yes Antiplatelet Therapy at Discharge:: No Reason Antiplatelet Therapy not ordered:: discontinued by cardiology Statins at discharge?: Yes Marvel/ARB at discharge?: Yes Beta Lisa at discharge?: Yes Done w/ Acute CO measure.: Yes Documented LVEF (%): 40 CHF MARVEL/ARB ordered at discharge?: Yes Documented LVEF (%): 40 Discharge Plan Admission Admit Date/Time: 10/20/20 20:44 Attending Provider: Jacky Monreal Primary Care Provider: Elver Rosario Consulting Providers: Kendall Hanna ; [place]ish[place] Discharge Orders/Prescriptions Prescriptions: New acetaminophen [Tylenol] 325 mg Tablet 650 mg PO Q4H PRN PRN (Reason: Fever, pain 1-01/26) Qty: 0 RF: 0 amiodarone 200 mg Tablet 200 mg PO TID Qty: 60 RF: 0 amlodipine 5 mg Tablet 5 mg PO DAILY Qty: 30 RF: 0 Eliquis 2.5 mg Tablet 2.5 mg PO BID Qty: 60 RF: 0 atorvastatin 40 mg Tablet 40 mg PO QHS Qty: 30 RF: 0 furosemide 40 mg Tablet 40 mg PO DAILY Qty: 30 RF: 0 isosorbide mononitrate 30 mg Tablet Extended Release 24 Hr 30 mg PO DAILY Qty: 30 RF: 0 Continued lecithin 1,200 mg Capsule 1,200 mg PO DAILY RF: 0 glipizide 10 mg Tablet 20 mg PO DAILY RF: 0 pantoprazole 40 mg Tablet,Delayed Release (Dr/Ec) 40 mg PO DAILY RF: 0 gabapentin 300 mg Capsule 600 mg PO QHS RF: 0 aspirin 81 mg Tablet 81 mg PO DAILY RF: 0 losartan 100 mg Tablet 150 mg PO DAILY RF: 0 metoprolol tartrate 25 mg Tablet 25 mg PO DAILY RF: 0 cholecalciferol (vitamin D3) [Vitamin D3] 25 mcg (1,000 unit) Tablet 25 mcg PO DAILY RF: 0 thyroid (pork) [[place] Thyroid] 60 mg Tablet 120 mg PO DAILY RF: 0 vitamin H95-ybeqi acid 500-400 mcg Tablet 1 tab PO DAILY RF: 0 Held metformin 1,000 mg Tablet 1,000 mg PO BID RF: 0 Hold Instructions: Resume on 10/27/20. Referrals / Follow Up: Elver Rosario MD [Primary Care Provider] - Within 1 Week Juve Lan MD [STAFF PHYSICIAN] - Within 1 Month Disposition Disposition (needs filled in before D/C Order can be placed): Home, Self Care Charges/Coding Visit Charges Inpatient E&M: 41946 Disch Hosp
--- NOTE | 2020-10-23 10:57 | CASEMGMT ---
Pt to be sent home on [facility] and med e-scribed to [facility] pharmacy. Call to Deborah in pharmacy and she will call this RN CM back once scripts run and notify of co-pay. Cara HUSTON CM
[2020-10-23] MEDS: Isosorbide Mononitrate 30 MG Tablet PO (12:41)
[2020-10-23] MEDS: Furosemide 40 MG Tablet PO (12:42)
[2020-10-23] MEDS: amLODIPine 5 MG Tablet PO (12:43)
[2020-10-23] MEDS: APIXABAN 2.5 MG TABLET PO (12:46)
[2020-10-23] MEDS: Amiodarone 200 MG Tablet PO ×2 (12:46)
--- NOTE | 2020-10-23 13:29 | PHA.DC.MC ---
Pharmacy Service has performed discharge medication reconciliation and counseling for this patient. 1. AMIODARONE 200MG PO TID X 1 WEEK, THEN BID X 2 WEEKS, THEN DAILY THEREAFTER 2. AMLODIPINE 5MG PO DAILY 3. APIXABAN 2.5MG PO BID 4. ATORVASTATIN 40MG PO QHS 5. FUROSEMIDE 40MG PO DAILY 6. ISOSORBIDE MONONITRATE 30MG PO DAILY The patient's discharge medication list was reviewed for discrepancies and discrepancies were resolved. Home Medications aspirin 81 mg PO DAILY 10/20/20 cholecalciferol (vitamin D3) [Vitamin D3] 25 mcg PO DAILY 10/20/20 gabapentin 600 mg PO QHS 10/20/20 glipizide 20 mg PO DAILY 10/20/20 lecithin 1,200 mg PO DAILY 10/20/20 losartan 150 mg PO DAILY 10/20/20 metformin 1,000 mg PO BID 10/20/20 metoprolol tartrate 25 mg PO DAILY 10/20/20 pantoprazole 40 mg PO DAILY 10/20/20 thyroid (pork) [[place] Thyroid] 120 mg PO DAILY 10/20/20 vitamin D06-pvtmk acid 1 tab PO DAILY 10/20/20 acetaminophen [Tylenol] 650 mg PO Q4H PRN PRN #0 tab 10/23/20 amiodarone 200 mg PO TID #60 tab 10/23/20 amlodipine 5 mg PO DAILY #30 tab 10/23/20 apixaban [Eliquis] 2.5 mg PO BID #60 tab 10/23/20 atorvastatin 40 mg PO QHS #30 tab 10/23/20 furosemide 40 mg PO DAILY #30 tab 10/23/20 isosorbide mononitrate 30 mg PO DAILY #30 tab 10/23/20 The patient was counseled on the following discharge medications and changes in medications for homegoing were reviewed. The Reason for Use, instructions for use, and potential side effects were reviewed for all new medications. The patient's questions regarding all of their medications were answered. The patient was able to verbally demonstrate an understanding of their discharge medications.
== END 2020-10-23 13:12 | disposition home or self-care (01) | DRG 280 ==
LOC: ED 21:06 → ICU 23:16 → PCU 10-21 14:30
PROVIDERS: Internal Medicine Cardiovascular Disease; Admitting Provider Family Medicine; Emergency Provider Emergency Medicine; PCP Family Medicine
DX: I21.4 Non-ST elevation (NSTEMI) myocardial infarction (principal); J96.01 Acute respiratory failure with hypoxia; I50.21 Acute systolic (congestive) heart failure; I16.1 Hypertensive emergency; I48.0 Paroxysmal atrial fibrillation; I25.10 Atherosclerotic heart disease of native coronary artery without angina pectoris; E78.5 Hyperlipidemia, unspecified; E03.9 Hypothyroidism, unspecified; E66.9 Obesity, unspecified; G47.33 Obstructive sleep apnea (adult) (pediatric); I11.0 Hypertensive heart disease with heart failure; K21.9 Gastro-esophageal reflux disease without esophagitis; I95.9 Hypotension, unspecified; E11.40 Type 2 diabetes mellitus with diabetic neuropathy, unspecified; Z95.1 Presence of aortocoronary bypass graft; Z85.51 Personal history of malignant neoplasm of bladder; Z79.899 Other long term (current) drug therapy; Z79.82 Long term (current) use of aspirin; Z79.84 Long term (current) use of oral hypoglycemic drugs; Z68.34 Body mass index [BMI] 34.0-34.9, adult
CPT/HCPCS: 36415; 71045; 80048; 80053; 80061; 80299; 82962; 83735; 83880; 84439; 84443; 84484; 85025; 85610; 85730; 87426; 87641; 93005; 93306; 93459; 94002; 94003; 97161; 97165; 97802; 99152; 99153; 99251; 99285; J7030; Q9957; A4216; C1769; C1894; C8929; G0463; J1940; J3490; Q9967

== ENCOUNTER → 2020-11-08 10:34 | Outpatient (CLI) | payer MEDICARE, OTHER, SELFPAY ==
[2020-10-20 21:42] VITALS: BMI 34.2
--- NOTE | 2020-11-08 10:44 | RAD_ITS ---
STUDY: X-RAY CHEST REASON FOR EXAM: Male, 70 years old. Shortness of breath, recent pulmonary edema TECHNIQUE: PA and lateral views of the chest. COMPARISON: Comparison is made with prior study dated 10/21/2020. FINDINGS: Hyperinflation. The lungs are clear. There is no demonstrated pleural abnormality. Sternal cerclage wires and vascular clips are present from a prior sternotomy and coronary artery bypass graft procedure (CABG). Normal mediastinum and bj. Normal visualized pulmonary arteries. There is atherosclerotic calcification of the aortic arch with tortuosity. There are diffuse degenerative changes of the visualized thoracic spine. Prior left shoulder replacement. There is no demonstrated abnormality of the visualized soft tissue structures of the upper abdomen. RAD/Chest PA and Lateral IMPRESSION: The lungs are clear. Electronically Signed: Antony Figueroa MD at 15:14 EDT , Service support ,
[2020-11-08 11:19] LABS: Hematocrit 36.5 % (40-54); Hemoglobin 11.7 g/dL (13.0-16.5); Mean Corp Hgb Conc 32.1 g/dL (32-36); Mean Corpuscular Volume 84.3 fL (80-94); Mean Platelet Vol. 10.1 fl (6.2-12.0); Platelet Count 294 K/mm3 (150-450); RBC Distribution Width SD 45.3 fl (35.1-43.9); Red Blood Count 4.33 M/mm3 (4.6-6.2); White Blood Count 6.1 K/mm3 (4.4-11.0)
[2020-11-08 12:00] LABS: Anion Gap 6 (5-15); BUN 19 mg/dL (7-18); BUN/Creat Ratio 12.5 RATIO (10-20); Calcium,Total 9.2 mg/dL (8.5-10.1); Chloride 102 mmol/L (98-107); Creatinine, Serum 1.52 mg/dL (0.70-1.30); EST Glomerular Filtration Rate 48 mL/min (>60); Est Glom Filt Rate - Afr Amer 58 mL/min (>60); Glucose 173 mg/dL (74-106); Potassium 3.8 mmol/L (3.5-5.1); Sodium Level 137 mmol/L (136-145); Thyroid Stim Hormone (TSH) 1.91 uIU/mL (0.358-3.74)
[2020-11-08 14:11] LABS: BNP,B-Type NATRIURETIC PEPTIDE 124.6 pg/mL (0-100)
== END ==
PROVIDERS: PCP Family Medicine; Referring Provider Nurse Practitioner Family; Visit Provider Nurse Practitioner Family
DX: I25.10 Atherosclerotic heart disease of native coronary artery without angina pectoris (principal); Z79.899 Other long term (current) drug therapy; I21.4 Non-ST elevation (NSTEMI) myocardial infarction; J96.01 Acute respiratory failure with hypoxia; J81.0 Acute pulmonary edema; I48.0 Paroxysmal atrial fibrillation
CPT/HCPCS: 36415; 71046; 80048; 83880; 84443; 85027

== ENCOUNTER → 2020-12-06 07:35 | Outpatient (CLI) | payer MEDICARE, OTHER, SELFPAY ==
[2020-11-26 14:54] VITALS: BMI 33.6
--- NOTE | 2020-12-06 07:36 | AAVD_ITS ---
Reason For Study: AAA Aorta Measurements Aorta Doppler Measurements Proximal aorta measures2.03 x 1.98cm. in cross- Peak systolic flow velocities within the proximal sectional axis. aorta measure 64.8 cm/sec. Proximal aorta measures2.10cm. in longitudinal Peak systolic flow velocities within the mid aorta axis. measure 94.1 cm/sec. Mid aorta measures1.80 x 1.78cm. in cross- Peak systolic flow velocities within the distal sectional axis. aorta measure 103.4 cm/sec. Mid aorta measures1.87cm. in longitudinal axis. Distal aorta measures1.35 x 1.39cm. in cross- sectional axis. Distal aorta measures1.39cm. in longitudinal axis. Left Iliac Artery Left iliac artery measures 1.02 x 1.02 cm. in the cross-sectional axis. Left iliac artery measures 1.05 cm. in the longitudinal axis. Peak systolic velocity in the left iliac artery measures 107 cm/sec. Right Iliac Artery Right iliac artery measures 1.09 x 1.07 cm. in the cross-sectional axis. Right iliac artery measures 1.07 cm. in the longitudinal axis. Peak systolic velocity in the right iliac artery measures 108.8 cm/sec. Procedure Aorta IVC Iliac vasculature or bypass grafts [id number]. Exam performed in department. VL/Abd Aortic/IVC Duplex scan Interpretation Summary No aortic iliac aneurysm or stenosis visualized. Ordering Physician: Juve Lan Referring Physician: MD Elver Rosario Performed By: Ophelia Licona RVT
== END ==
PROVIDERS: PCP Family Medicine; Referring Provider Internal Medicine Cardiovascular Disease; Visit Provider Internal Medicine Cardiovascular Disease
DX: I10 Essential (primary) hypertension (principal)
CPT/HCPCS: 93978

== ENCOUNTER 2021-01-06 18:40 | Emergency (ER) | payer MEDICARE, OTHER, SELFPAY ==
[2021-01-06 18:40] VITALS: BP 176/96; PULSE 100; RESP 17; TEMP 36.6; O2SAT 98; BMI 33.3
--- NOTE | 2021-01-06 18:47 | EKG12_ITS ---
Test Reason : CP Blood Pressure : / mmHG Vent. Rate : 102 BPM Atrial Rate : 102 BPM P-R Int : 184 ms QRS Dur : 158 ms QT Int : 408 ms P-R-T Axes : 070 043 148 degrees QTc Int : 531 ms Sinus tachycardia Left bundle branch block Abnormal ECG Confirmed by EFREN DORANTES, MEDARDO ([id number]), video editor ANTELMO THOMPSON ([id number]) on 01/10/2021 9:59:05 AM Referred By: MATTHEW Confirmed By:MEDARDO SCHWARTZ MD
--- NOTE | 2021-01-06 18:55 | RAD_ITS ---
STUDY: X-RAY CHEST REASON FOR EXAM: Male, 70 years old. chest pain TECHNIQUE: Single AP portable view of the chest. COMPARISON: 11/08/2020. FINDINGS: The lungs are clear and expanded. There is no demonstrated pleural abnormality. Normal size heart. Prior sternotomy. Normal mediastinum and bj. Normal visualized pulmonary arteries. Tortuous aorta. Reverse shoulder arthroplasty on the left. Moderate shoulder osteoarthrosis on the right. Soft tissues are unremarkable. RAD/Chest 1 View (Portable) IMPRESSION: No acute findings. Electronically Signed: Barbara Marx MD at 19:13 EDT Tel , Service support ,
[2021-01-06 19:01] LABS: Absolute Lymphocyte Count 2.57 X10^3/uL (0.83-4.51); Absolute Neutrophil Count 4.3 X10^3/uL (2.0-7.7); Basophil# 0.04 X10^3/uL; Basophil% 0.5 % (0-1); Eosinophil# 0.11 X10^3/uL; Eosinophils% 1.4 % (0-5); Hematocrit 39.6 % (40-54); Hemoglobin 12.9 g/dL (13.0-16.5); Lymphocyte # 2.57 X10^3/ul (0.83-4.51); Lymphocyte % 32.7 % (19-41); Mean Corp Hgb Conc 32.6 g/dL (32-36); Mean Corpuscular Hgb 27.7 pg (27.0-32.0); Mean Corpuscular Volume 85.2 fL (80-94); Mean Platelet Vol. 9.8 fl (6.2-12.0); Monocyte# 0.81 X10^3/uL; Monocyte% 10.3 % (0-10); NRBC Flagged by Analyzer 0 % (0-5); Neutrophil # 4.31 X10^3/uL (2.7-7.7); Neutrophil % 54.8 % (47-70); Platelet Count 263 K/mm3 (150-450); RBC Distribution Width CV 14.9 % (11.6-14.6); RBC Distribution Width SD 46.2 fl (35.1-43.9); Red Blood Count 4.65 M/mm3 (4.6-6.2); White Blood Count 7.9 K/mm3 (4.4-11.0)
[2021-01-06 19:12] LABS: Anion Gap 9 (5-15); BUN 19 mg/dL (7-18); BUN/Creat Ratio 12.1 RATIO (10-20); Calcium,Total 9.6 mg/dL (8.5-10.1); Chloride 102 mmol/L (98-107); Creatinine, Serum 1.57 mg/dL (0.70-1.30); EST Glomerular Filtration Rate 46 mL/min (>60); Est Glom Filt Rate - Afr Amer 56 mL/min (>60); Estimated Creatinine Clearance 41.75 ml/min; Glucose 257 mg/dL (74-106); Potassium 3.5 mmol/L (3.5-5.1); Sodium Level 136 mmol/L (136-145); Troponin-I HS 12 pg/mL (3.0-78.0)
--- NOTE | 2021-01-06 19:18 | ED.VIS.GI ---
HPI HPI - GI History of Present Illness Chief Complaint: Abd Pain Informant: patient and spouse/S.O. Abdominal Pain/Flank Pain Onset: Today Context: Gradual Onset Timing: Intermittent Quality: Aching Current Severity: Mild Maximum Severity: Mild Worsened by: Nothing Relieved by: Nothing Nausea/Vomiting/Emesis GI Symptom: Positive for Nausea; Negative for Vomiting Onset: Today Severity: Mild Diarrhea/Melena/Hematochezia GI Symptom: Negative for Diarrhea, Melena and Hematochezia Associated Symptoms Associated Symptoms: Negative for Dysuria, Frequency, Hematuria and Urgency Narrative Narrative: 70-year-old male with a history of CAD with bypass surgery 18 years ago in 2002. Reportedly October 20 of this year had an DE with a similar presentation where he had periumbilical abdominal pain. States at that time his enzymes were elevated he was admitted had a heart cath that showed no significant change from 18 years ago when he and his bypass surgery. He has a known ischemic cardiomyopathy. He states that this pain today started 1-1/2 hours ago. Associated nausea without vomiting. No diarrhea or fever. No melena or dysuria. He had a bowel movement today. Has had a prior cholecystectomy. Patient also has a history of diabetes and bladder cancer. Prior similar symptoms: Yes Recent Illness/Hospitalization: No PFSH PFS Medical History AAA (abdominal aortic aneurysm) Atherosclerotic heart disease of [place] coronary artery without angina pectoris Atrial fibrillation BPH (benign prostatic hyperplasia) CAD (coronary artery disease) CAD (coronary artery disease) Chronic insomnia Diabetes Diverticulosis Fibromyalgia History of ischemic cardiomyopathy History of left heart catheterization (LHC) (~10/22/20) HLD (hyperlipidemia) Hypertension Myocardial infarction PRAKASH (obstructive sleep apnea) Pulmonary nodules Restless leg syndrome Rheumatoid arthritis Thyroid disease Home Medications aspirin 81 mg PO DAILY 10/20/20 [History Last Taken Unknown] cholecalciferol (vitamin D3) [Vitamin D3] 25 mcg PO DAILY 10/20/20 [History Last Taken Unknown] gabapentin 600 mg PO QHS 10/20/20 [History Last Taken Unknown] glipizide 20 mg PO DAILY 10/20/20 [History Last Taken Unknown] losartan 150 mg PO DAILY 10/20/20 [History Last Taken Unknown] pantoprazole 40 mg PO DAILY 10/20/20 [History Last Taken Unknown] vitamin D21-[place] acid 1 tab PO DAILY 10/20/20 [History Last Taken Unknown] acetaminophen [Tylenol] 650 mg PO Q4H PRN PRN #0 tab 10/23/20 [Rx Last Taken Unknown] amlodipine 5 mg PO DAILY #30 tab 10/23/20 [Rx Last Taken Unknown] metoprolol tartrate 25 mg tablet 25 mg PO BID tab 11/08/20 [History Last Taken Unknown] amiodarone 200 mg tablet 100 mg PO DAILY #90 tab 11/26/20 [Rx Last Taken Unknown] isosorbide mononitrate 30 mg tablet,extended release 24 hr 30 mg PO DAILY #180 tab 11/26/20 [Rx Last Taken Unknown] metformin 1,000 mg tablet 1,000 mg PO DAILY tab 11/26/20 [History Last Taken Unknown] thyroid (pork) 60 mg tablet 120 mg PO DAILY tab 11/26/20 [History Last Taken Unknown] furosemide 40 mg tablet 40 mg PO DAILY #0 tab 12/11/20 [Rx Last Taken Unknown] Allergy/AdvReac Type Severity Reaction Status Date / Time [id number] Reductase Allergy Severe Severe Verified 01/06/21 18:45 Inhibitor mouth sores Sulfa (Sulfonamide Allergy Unknown Unknown Verified 01/06/21 18:45 Antibiotics) levothyroxine sodium Allergy mouth Verified 01/06/21 18:45 [From Synthroid] sores,diarrhea,stomach cramps fish oil AdvReac Severe Mouth Sores Verified 01/06/21 18:45 morphine AdvReac Nausea/Vom/ Verified 01/06/21 18:45 Diarrhea Family History Brother Diabetes CAD (coronary artery disease) Alzheimer disease Celiac disease Hypertension Heart disease Brother CAD (coronary artery disease) Surgical History History of carpal tunnel release History of trigger finger Hx of bladder cancer Hx of CABG Hx of cholecystectomy Hx of elbow surgery Hx of lipoma Hx of repair of rotator cuff Hx of shoulder replacement Hx of total knee replacement Hx of transurethral resection of prostate S/P CABG (coronary artery bypass graft) S/P PTCA (percutaneous transluminal coronary angioplasty) Social History Smoking Status: Never smoker second hand exposure: No alcohol intake: current alcohol intake frequency: a few times a week substance use type: does not use caffeine: Yes what type of physical activity do you participate in: none frequency: does not exercise seatbelt use: always ROS ROS ED ROS Narrative Abdominal pain. Nausea. Denies fever or chills. Denies dysuria. Denies constipation. Review of Systems ROS Unobtainable: Denies due to encephalopathy Constitutional Constitutional ED: Denies chills or fever(s) ENT ENT ED: Denies ear pain or sore throat Cardiovascular Cardiovascular: Denies chest pain Respiratory/Chest Respiratory/Chest: Denies cough or dyspnea Gastrointestinal Gastrointestinal: Reports abdominal pain and nausea; Denies constipation, diarrhea or vomiting Genitourinary Genitourinary ED: Denies dysuria Musculoskeletal Musculoskeletal: Denies myalgias Integumentary Denies abscess or rash Neurologic Neurologic: Denies headache(s) Psychiatric Psychiatric: Denies depression Endocrine Endocrinology: Denies polyuria Allergic/Immunologic Allergic/Immunologic ED: Denies urticaria EXAM Physical Exam Narrative Exam Narrative: 6-year-old male no acute distress vital signs stable afebrile. HEENT exam unremarkable. Lungs clear to auscultation. Heart regular rhythm. Abdomen soft. Nontender. Nondistended. Normal bowel sounds no peritoneal signs. No pulsatile mass. Moving all 4 extremities. Calves are nontender without edema. Normal motor strength. Back nontender. Neurologically is awake alert with no focal motor deficits. Const Vital Signs: 01/06/21 18:40 01/06/21 18:51 01/06/21 22:05 Temperature 97.8 F Temperature Source Temporal Pulse Rate 100 70 Respiratory Rate 17 17 Blood Pressure 176/96 H 134/48 H Blood Pressure Mean 122 76 Pulse Ox 98 96 Oxygen Delivery Method Room Air Room Air Room Air Positive well nourished and well developed; Negative for obese, cachectic, contractures or unkempt General Appearance ED: well developed and NAD; Negative for unkempt, cachectic or contractures Nutritional Appearance: Negative for cachectic or obese HEENT Reports moist mucous membranes normocephalic and atraumatic; Negative for trauma or tenderness Eyes PERRL and EOMs intact bilaterally Neck no lymphadenopathy, supple and no JVD General: Negative for tenderness Resp normal respiratory effort and clear to auscultation bilaterally Auscultation: Negative for rales, rhonchi or wheezes Cardio regular rate, regular rhythm, S1 normal heart sound, S2 normal heart sound and no murmurs GI non-tender, non-distended and no masses Inspection: Negative for abdominal distention Auscultation: normoactive bowel sounds; Negative for hypoactive bowel sounds Palpation: soft; Negative for tender, guarding, rigid or rebound tenderness present Back/Spine no CVA tenderness Extremity full ROM General Extremety ED: Negative for edema or tenderness General Extremity: Negative for edema Neuro Sensorium / Orientation: alert, oriented to person, oriented to place and oriented to time; Negative for orientation impaired, confused, lethargic or stuporous Motor Exam: strength 5/5 throughout Psych Appearance: Negative for unkempt MDM MDM MDM Narrative Medical decision making narrative: 70-year-old male with periumbilical abdominal pain. Prior presentations are actually cardiac in etiology.My clinical suspicion for this being cardiac is actually low. His exam is benign. Reportedly has a history also of a AAA so I will get a CAT scan of his abdomen with IV contrast. Repeat exam patient doing well at 10:15 PM. Abdomen is benign. We went over all his test results he and his are comfortable with him being discharged home as DE. He has outpatient follow-up later this week with his primary care physician. Lab Data Attestation: I reviewed the patient's lab results. Lab results narrative: CBC shows a white count 7.9. Hemoglobin of 12.9. Electrolytes unremarkable gap is 7. Creatinine 1.57 glucose 257. High-sensitivity troponin 12. Liver enzymes unremarkable. Alk phos 118. Lipase normal at 113.Repeat 2-hour troponin was 51 still In the normal range. Urine analysis is negative. Labs: Laboratory Results - last 24 hr 01/06/21 01/06/21 01/06/21 18:45 18:45 18:45 WBC 7.9 RBC 4.65 Hgb 12.9 L Hct 39.6 L MCV 85.2 MCH 27.7 MCHC 32.6 RDW Std Deviation 46.2 H RDW Coeff of [place] 14.9 H Plt Count 263 MPV 9.8 Immature Gran % (Auto) 0.300 Neut % (Auto) 54.8 Lymph % (Auto) 32.7 [place] % (Auto) 10.3 H Eos % (Auto) 1.4 Baso % (Auto) 0.5 Absolute Neuts (auto) 4.3 Absolute Lymphs (auto) 2.57 Nucleated RBC % 0 Sodium 136 Potassium 3.5 Chloride 102 Carbon Dioxide 25.0 Anion Gap 9 BUN 19 H Creatinine 1.57 H Estim Creat Clear Calc 41.75 Est GFR (MDRD) Af Amer 56 L Est GFR (MDRD) Non-Af 46 L BUN/Creatinine Ratio 12.1 Glucose 257 H Calcium 9.6 Total Bilirubin 0.40 Direct Bilirubin 0.11 AST 27 ALT 38 Alkaline Phosphatase 118 H Troponin I High Sens 12 Total Protein 8.9 H Albumin 4.3 Globulin 4.6 H Lipase 133 Urine Color Urine Clarity Urine pH Ur Specific [place] Urine Protein Urine Glucose (UA) Urine Ketones Urine Occult Blood Urine Nitrite Urine Bilirubin Urine Urobilinogen Ur Leukocyte Esterase Urine RBC Urine WBC Ur Squamous Epith Cells Urine Bacteria Urine Mucus 01/06/21 01/06/21 19:50 20:46 WBC RBC Hgb Hct MCV MCH MCHC RDW Std Deviation RDW Coeff of [place] Plt Count MPV Immature Gran % (Auto) Neut % (Auto) Lymph % (Auto) [place] % (Auto) Eos % (Auto) Baso % (Auto) Absolute Neuts (auto) Absolute Lymphs (auto) Nucleated RBC % Sodium Potassium Chloride Carbon Dioxide Anion Gap BUN Creatinine Estim Creat Clear Calc Est GFR (MDRD) Af Amer Est GFR (MDRD) Non-Af BUN/Creatinine Ratio Glucose Calcium Total Bilirubin Direct Bilirubin AST ALT Alkaline Phosphatase Troponin I High Sens 51 Total Protein Albumin Globulin Lipase Urine Color Straw Urine Clarity Sl. Cloudy Urine pH 5.0 Ur Specific [place] 1.015 Urine Protein 100 H Urine Glucose (UA) 1000 H Urine Ketones 5 H Urine Occult Blood 10 H Urine Nitrite Negative Urine Bilirubin Negative Urine Urobilinogen Normal Ur Leukocyte Esterase Negative Urine RBC 0 SEEN Urine WBC 0 SEEN Ur Squamous Epith Cells 0 SEEN Urine Bacteria 0 SEEN Urine Mucus 0 SEEN Radiography Diagnostic Testing: Radiology Impression Chest X-Ray 01/06/21 18:55 IMPRESSION: No acute findings. Electronically Signed: Barbara Marx MD at 19:13 EDT Tel , Service support , Abdomen/Pelvis CT 01/06/21 20:06 IMPRESSION: 1. No acute findings. 2. Diverticulosis, no acute diverticulitis. 3. Prostatic enlargement. Electronically Signed: Barbara Marx MD at 21:25 EDT Tel , Service support , Portable chest x-ray shows normal cardiac silhouette. Prior sternotomy. Left shoulder surgery. No acute process.Single view interpreted by myself and the radiologist. Rhythm Strip Rhythm Strip: Sinus Tach Rate: 102 Ectopy: None EKG Initial EKG: Attestation: I personally reviewed and interpreted this EKG as follows: Interpretation: Sinus Rhythm, No Acute Injury Pattern and Sinus Tachycardia Comments: Sinus tachycardia rate of 102. Left bundle branch block.No acute signs of DE. Prior EKG tracings: available for review Prior: Unchanged Discharge Plan Triage Chief Complaint: Abd Pain ED Provider: Jose R Mccrary Dx/Rx/DC Orders Clinical Impression: Abdominal pain of unknown etiology Instructions: ED Abdominal Pain Unkn Cause Male... Prescriptions: No Action isosorbide mononitrate 30 mg tablet extended release 24 hr 30 mg PO DAILY Qty: 180 RF: 3 amiodarone 200 mg tablet 100 mg PO DAILY Qty: 90 RF: 3 metformin 1,000 mg tablet 1,000 mg PO DAILY RF: 0 metoprolol tartrate 25 mg tablet 25 mg PO BID RF: 0 glipizide 10 mg Tablet 20 mg PO DAILY RF: 0 pantoprazole 40 mg Tablet,Delayed Release (Dr/Ec) 40 mg PO DAILY RF: 0 gabapentin 300 mg Capsule 600 mg PO QHS RF: 0 aspirin 81 mg Tablet 81 mg PO DAILY RF: 0 losartan 100 mg Tablet 150 mg PO DAILY RF: 0 cholecalciferol (vitamin D3) [Vitamin D3] 25 mcg (1,000 unit) Tablet 25 mcg PO DAILY RF: 0 vitamin R42-eguum acid 500-400 mcg Tablet 1 tab PO DAILY RF: 0 acetaminophen [Tylenol] 325 mg Tablet 650 mg PO Q4H PRN PRN (Reason: Fever, pain 1-01/26) Qty: 0 RF: 0 amlodipine 5 mg Tablet 5 mg PO DAILY Qty: 30 RF: 0 thyroid (pork) [[place] Thyroid] 60 mg tablet 120 mg PO DAILY RF: 0 furosemide 40 mg tablet 40 mg PO DAILY Qty: 0 RF: 0 Primary Care Provider: Elver Rosario Referrals: Elver Rosario MD [Primary Care Provider] - Keep [facility] appointment Activity Restrictions/Additional Instructions: Your labs checked out tonight. Your CAT scan was unremarkable. This pain may or may not be from your ventral abdominal wall hernia. Follow-up with your doctor. Return if feeling a lot worse. Disposition Disposition: Home, Self Care
[2021-01-06 19:40] LABS: AST(SGOT) 27 U/L (15-37); Alanine Aminotransfer ALT/SGPT 38 U/L (16-61); Albumin, Serum 4.3 g/dL (3.2-5.0); Alkaline Phosphatase 118 U/L (45-117); Bilirubin, Direct 0.11 mg/dL (0.00-0.30); Globulin 4.6 g/dL (2.2-4.2); Lipase 133 U/L (73-393); Protein, Total 8.9 g/dL (6.4-8.2)
[2021-01-06 20:00] LABS: Bacteria 0 SEEN /hpf (None Seen); Mucous, Urine 0 SEEN /hpf (<or=2+); Red Blood Cells-Urine 0 SEEN /hpf (0-5); Squamous Epithelial Cells - UA 0 SEEN /hpf (0-5); White Blood Cells 0 SEEN /hpf (0-5)
[2021-01-06 20:01] LABS: Color, Urine Straw (Yellow); Glucose, Dipstick 1000 mg/dl (Normal); Ketone-Dipstick 5 mg/dl (Negative); Leukocyte Esterase-Dipstick Negative /ul (Negative); Nitrite-Dipstick Negative (Negative); Occult Blood-Urine 10 /ul (Negative); Protein-Dipstick 100 mg/dl (Negative); Specific Gravity, Urine 1.015 (1.002-1.030); Urine Bilirubin Dipstick Negative (Negative); Urine Clarity Sl. Cloudy (Clear); Urine Urobilinogen Normal (Normal)
--- NOTE | 2021-01-06 20:06 | CT_ITS ---
STUDY: CT ABDOMEN AND PELVIS WITH CONTRAST REASON FOR EXAM: Male, 70 years old. abd pain RADIATION DOSAGE (If Supplied By Facility): CTDIvol = ( 20.74 ) mGy, DLP = ( 1153.05 ) mGycm TECHNIQUE: Transaxial images were obtained from the dome of the diaphragm to the symphysis pubis without oral contrast. IV 100mL Isovue-300 was administered. Sagittal and coronal images were reconstructed. Individualized dose optimization techniques were used for this CT. COMPARISON: None. FINDINGS: Lung bases are clear. Heart size is normal. The liver is unremarkable. The gallbladder is surgically absent. Spleen is normal. Pancreas is atrophic. No focal lesion. The adrenal glands are normal. The kidneys are unremarkable. No stones or hydronephrosis. The aorta is normal in caliber. There is no free fluid, free air or organized collection. No bowel obstruction or inflammatory change. Diverticulosis. No acute diverticulitis. Normal appendix. Urinary bladder is unremarkable. Prostate gland measures 5.2 x 4.9 x 4.8 cm. Normal abdominal wall. Normal osseous structures. CT/Abdomen/Pelvis W IV Cont ONLY IMPRESSION: 1. No acute findings. 2. Diverticulosis, no acute diverticulitis. 3. Prostatic enlargement. Electronically Signed: Barbara Marx MD at 21:25 EDT Tel , Service support ,
[2021-01-06 21:13] LABS: Troponin-I HS 51 pg/mL (3.0-78.0)
[2021-01-06 22:05] VITALS: BP 134/48; PULSE 70; RESP 17; O2SAT 96
[2021-01-06 22:27] VITALS: RESP 16; O2SAT 99
== END 2021-01-06 22:27 | disposition home or self-care (01) ==
PROVIDERS: Emergency Provider Emergency Medicine; PCP Family Medicine
DX: R10.9 Unspecified abdominal pain (principal); E11.9 Type 2 diabetes mellitus without complications; E78.5 Hyperlipidemia, unspecified; G47.33 Obstructive sleep apnea (adult) (pediatric); I10 Essential (primary) hypertension; I25.10 Atherosclerotic heart disease of native coronary artery without angina pectoris; I25.5 Ischemic cardiomyopathy; I44.7 Left bundle-branch block, unspecified; M06.9 Rheumatoid arthritis, unspecified; N40.0 Benign prostatic hyperplasia without lower urinary tract symptoms; Z79.82 Long term (current) use of aspirin; Z79.84 Long term (current) use of oral hypoglycemic drugs; Z85.51 Personal history of malignant neoplasm of bladder; I25.2 Old myocardial infarction
CPT/HCPCS: 71045; 74177; 80048; 80076; 81001; 83690; 84484; 85025; 93005; 99284; Q9967; A4216

== ENCOUNTER 2021-07-10 16:42 | Outpatient (CLI) | payer MEDICARE, OTHER, SELFPAY ==
--- NOTE | 2021-07-10 | CYSPIN_PTH ---
PATIENT: DANI SHETH LOC: [facility] U#:[id number] AGE/SX: 71/M ROOM: RE07/10/[address]: Dr. Eugene Foreman MD : 1950 BED: DIS: 07/10/2021 SPEC #: [id number] RECD: 07/11/21 08:35 STATUS: BIB REQ #: [id number] CLAUDIA: 07/10/21 00:[address]: Eugene Foreman DEPT: CYTOLOGY RECD BY: Zak Denny ENTERED: 07/11/21 08:35 SP TYPE: CYSPIN FL OTHR DR: Dr. Elver Rosario MD Tissues: Urine Procedures: Pap Stain (control) Special Stain Group II Cytospin Fluid HEADER OPERATION: Not noted PRE-OP DIAGNOSIS: Malignant neoplasm of bladder TISSUE SUBMITTED: Urine for cytology DIAGNOSIS CYTOLOGY Urine for cytology (cytospin): Negative for malignant cells. Acute inflammation. See comment. SJ:yanira 07/11/2021 COMMENT Clinical correlation and appropriate follow up are necessary. CYTOLOGY STUDY Slides are reviewed. CYTOLOGY GROSS Received is 70 ml of gold cloudy fluid labeled with the patient's name and and designated per the requisition as urine. Submitted for cytology preparation. / yanira 07/11/2021 TC:2 CPT: 10785
[2021-07-10 17:00] LABS: Cytology, Body Fluid / CSF SEE PATHOLOGY REPORT
== END 2021-07-10 23:59 | disposition home or self-care (01) ==
LOC: LABSPEC 16:43
PROVIDERS: PCP Family Medicine; Visit Provider Urology
DX: C67.2 Malignant neoplasm of lateral wall of bladder (principal)
CPT/HCPCS: 88108; 88313

== ENCOUNTER → 2021-09-30 | Outpatient (CLI) | payer MEDICARE, OTHER, SELFPAY ==
[2021-09-30 11:26] LABS: BNP,B-Type NATRIURETIC PEPTIDE 250.7 pg/mL (0-100)
[2021-09-30 11:31] LABS: Anion Gap 5 (5-15); BUN 21 mg/dL (7-18); BUN/Creat Ratio 13.5 RATIO (10-20); Chloride 104 mmol/L (98-107); Creatinine, Serum 1.56 mg/dL (0.70-1.30); EST Glomerular Filtration Rate 47 mL/min (>60); Est Glom Filt Rate - Afr Amer 57 mL/min (>60); Glucose 101 mg/dL (74-106); Potassium 4.4 mmol/L (3.5-5.1); Sodium Level 138 mmol/L (136-145)
== END | disposition home or self-care (01) ==
LOC: LAB 10:00
PROVIDERS: PCP Family Medicine; Visit Provider Nurse Practitioner Family
DX: R06.00 Dyspnea, unspecified (principal); I48.0 Paroxysmal atrial fibrillation; Z79.899 Other long term (current) drug therapy
CPT/HCPCS: 36415; 80048; 83880

== ENCOUNTER → 2022-01-17 | Outpatient (CLI) | payer MEDICARE, OTHER, SELFPAY ==
--- NOTE | 2022-01-17 07:36 | US_ITS ---
EXAM: US ABDOMEN LIMITED CLINICAL INDICATION: Left chest mass -- Left lower chest Left chest mass -- Left lower chest. Air and swelling in the left side of the chest. TECHNIQUE: Real-time ultrasound of the soft tissues of the abdomen with image documentation. This report was created using [employer] report generation technology. COMPARISON: CT scan abdomen and pelvis 09/05/2020. FINDINGS: SOFT TISSUES: In the area of left chest swelling, there is an approximately 4.1 x 0.9 x 4.8 cm area of heterogeneous increased soft tissue thickness deep to the subcutaneous fat plane. This is not entirely well-defined and measurements may not be accurate. There is minimal color DOPPLER signal in the periphery of this structure and this may represent a vascular structure such as a hematoma or a hypovascular solid structure. US/Other Unlisted US Procedure IMPRESSION: Heterogeneous soft tissue thickening is seen in the area of clinical concern. Findings are nonspecific. If clinically warranted, MRI or CT scan might provide more useful evaluation. Electronically Signed: Sunil Fair MD at 2:37 EDT ,
== END | disposition home or self-care (01) ==
LOC: US 07:36
PROVIDERS: PCP Family Medicine; Visit Provider Nurse Practitioner Family
DX: R22.2 Localized swelling, mass and lump, trunk (principal)
CPT/HCPCS: 76999

== ENCOUNTER 2022-02-02 22:24 | Inpatient (IN) | payer MEDICARE, OTHER, SELFPAY ==
[2022-02-02] VITALS (8 sets, daily range): BP systolic 116–203; BP diastolic 68–130; PULSE 67–126; RESP 12–33; TEMP 35.1–37.1; O2SAT 67–99; BMI 33.9
--- NOTE | 2022-02-02 22:35 | EKG12_ITS ---
Test Reason : DYSRHYTHMIA Blood Pressure : / mmHG Vent. Rate : 128 BPM Atrial Rate : 108 BPM P-R Int : 000 ms QRS Dur : 134 ms QT Int : 386 ms P-R-T Axes : 000 035 195 degrees QTc Int : 563 ms Undetermined rhythm : Consider Atrial Fibrillation with PVC's Left bundle branch block Abnormal ECG Confirmed by EFREN DORANTES, MEDARDO ([id number]), medical transcription editor ANTELMO THOMPSON ([id number]) on 02/05/2022 12:28:41 PM Referred By: GIOVANNY Confirmed By:MEDARDO SCHWARTZ MD
--- NOTE | 2022-02-02 22:37 | EDS_ITS ---
HPI History of Present Illness Chief Complaint: Chest Pain Narrative Narrative: 71-year-old male past medical history of CHF presents with sudden onset of shortness of breath that started about an hour ago. History and physical is limited secondary to patient condition. According to his he was getting ready for bed. He got up to go to the bathroom and his blood pressure started rising. He began having shortness of breath and respiratory distress. She states that a year ago on October 20, he was admitted for CHF and was told that he had congestive heart failure. He was started on Lasix and they added a total of 4 other medications at that time. He does have history of coronary artery disease and has had CABG 18 years ago. No recent fevers or chills. No cough or leg swelling. He presents because of the respiratory distress, difficulty breathing, and he broke out in a cold sweat. [facility] Medical History AAA (abdominal aortic aneurysm) Atherosclerotic heart disease of [place] coronary artery without angina pectoris Atrial fibrillation BPH (benign prostatic hyperplasia) CAD (coronary artery disease) CAD (coronary artery disease) Chronic insomnia Diabetes Diverticulosis Fibromyalgia History of ischemic cardiomyopathy History of left heart catheterization (LHC) (~10/22/20) HLD (hyperlipidemia) Hypertension Myocardial infarction PRAKASH (obstructive sleep apnea) Pulmonary nodules Restless leg syndrome Rheumatoid arthritis Thyroid disease Home Medications aspirin 81 mg tablet 81 mg PO DAILY 10/20/20 [History Last Taken Unknown] gabapentin 300 mg capsule 600 mg PO QHS nerve pain 10/20/20 [History Last Taken Unknown] losartan 100 mg tablet 150 mg PO DAILY blood pressure 10/20/20 [History Last Taken Unknown] pantoprazole 40 mg tablet,delayed release 40 mg PO DAILY reflux 10/20/20 [History Last Taken Unknown] acetaminophen 325 mg tablet (Tylenol) 650 mg PO Q4H PRN PRN Fever, pain 1-01/26 #0 tabs 10/23/20 [Rx Last Taken Unknown] metoprolol tartrate 25 mg tablet 25 mg PO BID bp 11/08/20 [History Last Taken Unknown] thyroid (pork) 60 mg tablet ([place] Thyroid) 120 mg PO DAILY thyroid 11/26/20 [History Last Taken Unknown] cholecalciferol (vitamin D3) 125 mcg (5,000 unit) tablet 125 mcg PO DAILY 03/18/21 [History Last Taken Unknown] glipizide 10 mg tablet, extended release 24 hr 10 mg PO DAILY 03/18/21 [History Last Taken Unknown] amiodarone 200 mg tablet 100 mg PO DAILY #15 tabs 07/07/21 [Rx Last Taken Unknown] cyanocobalamin (vitamin B-12) 1,000 mcg tablet (Vitamin B-12) 2,000 mcg PO DAILY 09/30/21 [History Last Taken Unknown] metformin 1,000 mg tablet 1,000 mg PO DAILY 09/30/21 [History Last Taken Unknown] polyethylene glycol 3350 17 gram/dose oral powder (Miralax) 17 g PO DAILY 09/30/21 [History Last Taken Unknown] wheat dextrin 3 gram/3.5 gram oral powder packet (Benefiber Clear Sugar Free(dextrin)) 1 packet PO DAILY 09/30/21 [History Last Taken Unknown] furosemide 40 mg tablet 40 mg PO DAILY #90 tabs 10/14/21 [Rx Last Taken Unknown] isosorbide mononitrate 30 mg tablet,extended release 24 hr 60 mg PO DAILY #180 tabs 01/06/22 [Rx Last Taken Unknown] Allergy/AdvReac Type Severity Reaction Status Date / Time N[place]-IMP-DfE Reductase Allergy Severe Severe Verified 02/02/22 22:37 Inhibitor mouth sores [Ujsmqra-Yad-Dus Reductase Inhibitor] Sulfa (Sulfonamide Allergy Unknown Unknown Verified 02/02/22 22:37 Antibiotics) levothyroxine sodium Allergy mouth Verified 02/02/22 22:37 [From Synthroid] sores,diarrhea,stomach cramps fish oil AdvReac Severe Mouth Sores Verified 02/02/22 22:37 apixaban [From Eliquis] AdvReac Intermediate blood in Verified 02/02/22 22:37 stools morphine AdvReac Nausea/Vom/ Verified 02/02/22 22:37 Diarrhea Family History Brother Diabetes CAD (coronary artery disease) Alzheimer disease Celiac disease Hypertension Heart disease Brother CAD (coronary artery disease) Surgical History History of carpal tunnel release History of trigger finger Hx of bladder cancer Hx of CABG Hx of cholecystectomy Hx of elbow surgery Hx of lipoma Hx of repair of rotator cuff Hx of shoulder replacement Hx of total knee replacement Hx of transurethral resection of prostate S/P CABG (coronary artery bypass graft) S/P PTCA (percutaneous transluminal coronary angioplasty) Social History Smoking Status: Never smoker second hand exposure: No alcohol intake: never substance use type: does not use caffeine: Yes Type: coffee Number of servings: 2 what type of physical activity do you participate in: none frequency: does not exercise seatbelt use: always ROS ROS ED ROS Narrative Limited secondary to patient condition. Constitutional: No fever, no chills. Elevated blood pressure HEENT: No sore throat. No neck pain. No loss of vision. No rhinorrhea. Cardiovascular: No chest pain. No palpitations. No pedal edema. Respiratory: No cough, positive shortness of breath. Positive respiratory distress. Chest tightness. Abdominal: No abdominal pain. No nausea. No vomiting. Genitourinary: No dysuria. No hematuria. Musculoskeletal: No myalgias. No arthralgias. Neurologic: No headaches. No dizziness. No lightheadedness. Skin: No rash. No change in color. Psychiatric: No depression. No anxiety. EXAM Physical Exam Narrative Exam Narrative: Afebrile. Vital signs noted. Diaphoretic. HEENT: Normocephalic. Atraumatic. PERRL, EOMI. Neck soft and supple. No point tenderness or step off. Cardiovascular: Regular rate and rhythm then tachycardic. No murmurs, rubs, or gallops appreciated. Respiratory: Positive tachypnea. Coarse breath sounds bilaterally. Gastrointestinal: Abdomen soft, nontender, with normoactive bowel sounds. No rebound or guarding. Neurological: Awake. Alert. Nonfocal, nonlateralizing. Skin: No rash. Normal color. No pallor. Musculoskeletal: No pedal edema. Full range of motion extremities. Const Vital Signs: 02/02/22 22:25 02/02/22 22:28 02/02/22 22:40 Temperature 95.2 F L 96.5 F L 95.8 F L Temperature Source Temporal Temporal Temporal Pulse Rate 95 126 H 98 Respiratory Rate 33 H 28 H 32 H Respiratory Effort Respiratory Depth Respiratory Pattern Blood Pressure 199/130 H 199/130 H 203/126 H Blood Pressure Mean 153 153 151 Pulse Ox 73 67 96 Oxygen Delivery Method Room Air Bi-pap Bi-pap Oxygen Flow Rate (L/min) 100 Fraction of Inspired Oxygen (FIO2) 02/02/22 22:44 02/02/22 23:21 02/02/22 22:35 Temperature Temperature Source Pulse Rate 69 111 H Respiratory Rate 22 H 33 H Respiratory Effort Short of Breath Labored Respiratory Depth Shallow Respiratory Pattern Tachypnea Tachypnea Blood Pressure 129/76 H Blood Pressure Mean 93 Pulse Ox 97 94 Oxygen Delivery Method Room Air Bi-pap Oxygen Flow Rate (L/min) 80 Fraction of Inspired Oxygen (FIO2) 100 02/02/22 23:28 02/02/22 23:57 Temperature 98.8 F Temperature Source Temporal Pulse Rate 67 72 Respiratory Rate 21 H 22 H Respiratory Effort Respiratory Depth Respiratory Pattern Tachypnea Blood Pressure 116/68 Blood Pressure Mean 84 Pulse Ox 99 96 Oxygen Delivery Method Bi-pap Oxygen Flow Rate (L/min) Fraction of Inspired Oxygen (FIO2) 40 MDM MDM MDM Narrative Medical decision making narrative: Patient had a low pulse ox reading of 73% on room air. He was placed on BiPAP. According to his , he has a DO NOT RESUSCITATE order, and did not want to be intubated initially. He was administered Lasix 40 mg intravenously. My suspicion is that he is going in to flash pulmonary edema. EKG on my interpretation demonstrates what appears to be tachycardia at 128 with a left bundle branch block which she has had previously on an EKG dated January 06, 2021. No acute ST or T changes or STEMI. CBC shows elevated white count of 13.3 with hemoglobin of 15.5, hematocrit 48.2. Platelet count slightly low at 113. Creatinine is elevated at 1.81 with a BUN of 22. Troponin is normal at 24. Chest x-ray in 1 view interpreted by myself shows pulmonary edema. His blood gas shows a pH of 7.2 with a PCO2 of 44 and a PO2 of 110. Upon repeat examination he is less tachypneic and his blood pressure has normalized after Lasix and hydralazine. At this point in time, I will discuss patient with the hospitalist for admission once his BNP returns. BNP has returned elevated at 299. Disposition is admit to the ICU in guarded condition. Critical care time 31 minutes. Lab Data Attestation: I reviewed the patient's lab results. Labs: Laboratory Results - last 24 hr 02/02/22 02/02/22 02/02/22 22:35 22:35 22:35 WBC 13.3 H RBC 5.46 Hgb 15.5 Hct 48.2 MCV 88.3 MCH 28.4 MCHC 32.2 RDW Std Deviation 45.8 H RDW Coeff of Dexter 14.3 Plt Count 113 L MPV 12.0 Immature Gran % (Auto) 0.700 Neut % (Auto) 38.4 L Lymph % (Auto) 50.9 H [place] % (Auto) 8.7 Eos % (Auto) 0.8 Baso % (Auto) 0.5 Absolute Neuts (auto) 5.1 Absolute Lymphs (auto) 6.76 H Nucleated RBC % 0 Differential Comment SCANNED Sodium 139 Potassium 4.2 Chloride 106 Carbon Dioxide 22.0 Anion Gap 11 BUN 22 H Creatinine 1.81 H Estim Creat Clear Calc 35.69 Est GFR (MDRD) Af Amer 48 L Est GFR (MDRD) Non-Af 39 L BUN/Creatinine Ratio 12.2 Glucose 205 H Calcium 10.5 H Troponin I High Sens 24 B-Natriuretic Peptide 299.8 H ABG Data ABG results: ABG 02/02/22 22:50 Specimen Type ART Sample Site R Radial pH 7.24 L Bicarbonate Actual 19.0 L Total CO2 20 Base Excess -8 L O2 Saturation 97 O2 % 100 ABG pCO2 44.2 ABG pO2 110 H Mike Test Positive O2 Delivery Device BiPAP Clinical Comments 01/02 12 100% Radiography Chest X-Ray - ED: Read by ED Physician and CHF Diagnostic Testing: Clinical Impression(s) from Imaging Studies Chest X-Ray 02/02/22 22:58 IMPRESSION: Interstitial and alveolar pulmonary infiltrates without other major interval change. Electronically Signed: Thom Bejarano DO at 23:12 EDT Reading Location ID and State: [facility] / [place] Tel [phone], Service support , Critical Care Time Critical Care Time: Yes Critical care time (excluding procedures): 30-74 minutes (31), Including time spent:, Discussing w/Patient &/or Family/[employer], Discussing w/Consultants, Arranging Admission or Transfer and Performing Direct Patient Care at Bedside Discharge Plan Dx/Rx/DC Orders Clinical Impression: Flash pulmonary edema, Hypertensive emergency, CAD (coronary artery disease), Respiratory failure with hypoxia, Thrombocytopenia Disposition Disposition: Acute Care Hospital [facility]
[2022-02-02] MEDS: Furosemide 40 MG/4 ML Vial IV (22:52)
[2022-02-02] MEDS: hydrALAZINE 20 MG/ML Vial 10 MG IV (22:52)
[2022-02-02 22:56] LABS: Allen Test Positive; Base Excess -8 mmol/L (-2 to +2); Blood Gas Specimen Type ART; Comment 16/10 12 100%; FI02 100; O2 Delivery Device BiPAP; PO2 110 mmHG (75-100); SITE R Radial; SO2 97 % (95-99); Total Carbon Dioxide 20 mmol/L; pCO2 44.2 mmHg (35-45); pH 7.24 (7.35-7.45)
--- NOTE | 2022-02-02 22:58 | RAD_ITS ---
STUDY: X-RAY CHEST REASON FOR EXAM: Male, 71 years old. Shortness of breath. History of multiple heart attacks. TECHNIQUE: Single AP portable view of the chest. COMPARISON: 01/06/2021 FINDINGS: Diffuse groundglass infiltrates throughout both lungs with questionable mild alveolar consolidation in the right lung base. There is no demonstrated pleural abnormality. The heart is normal in size. There is evidence of prior CABG procedure. Slight widening of the superior mediastinum Normal visualized pulmonary arteries. There is atherosclerotic calcification of the aortic arch with tortuosity. The thoracic spine is obscured by the mediastinum. Stable left shoulder replacement. There is no demonstrated abnormality of the visualized soft tissue structures of the upper abdomen. RAD/Chest 1 View (Portable) IMPRESSION: Interstitial and alveolar pulmonary infiltrates without other major interval change. Electronically Signed: Thom Bejarano DO at 23:12 EDT ,
[2022-02-02 23:13] LABS: Absolute Lymphocyte Count 6.76 X10^3/uL (0.83-4.51); Absolute Neutrophil Count 5.1 X10^3/uL (2.0-7.7); Basophil# 0.06 X10^3/uL; Basophil% 0.5 % (0-1); Eosinophils% 0.8 % (0-5); Hematocrit 48.2 % (40-54); Hemoglobin 15.5 g/dL (13.0-16.5); Lymphocyte # 6.76 X10^3/ul (0.83-4.51); Lymphocyte % 50.9 % (19-41); Mean Corp Hgb Conc 32.2 g/dL (32-36); Mean Corpuscular Hgb 28.4 pg (27.0-32.0); Mean Corpuscular Volume 88.3 fL (80-94); Monocyte# 1.15 X10^3/uL; Monocyte% 8.7 % (0-10); NRBC Flagged by Analyzer 0 % (0-5); Neutrophil # 5.12 X10^3/uL (2.7-7.7); Neutrophil % 38.4 % (47-70); POSITIVE COUNT YES; POSITIVE DIFFERENTIAL YES; POSITIVE MORPHOLOGY YES; Platelet Count 113 K/mm3 (150-450); RBC Distribution Width CV 14.3 % (11.6-14.6); RBC Distribution Width SD 45.8 fl (35.1-43.9); Red Blood Count 5.46 M/mm3 (4.6-6.2); White Blood Count 13.3 K/mm3 (4.4-11.0)
[2022-02-02 23:20] LABS: Anion Gap 11 (5-15); BUN 22 mg/dL (7-18); BUN/Creat Ratio 12.2 RATIO (10-20); Calcium,Total 10.5 mg/dL (8.5-10.1); Chloride 106 mmol/L (98-107); Creatinine, Serum 1.81 mg/dL (0.70-1.30); EST Glomerular Filtration Rate 39 mL/min (>60); Est Glom Filt Rate - Afr Amer 48 mL/min (>60); Estimated Creatinine Clearance 35.69 ml/min; Glucose 205 mg/dL (74-106); Potassium 4.2 mmol/L (3.5-5.1); Sodium Level 139 mmol/L (136-145); Troponin-I HS 24 pg/mL (3.0-78.0)
[2022-02-02 23:24] LABS: Differential Indicated SCAN CRITERIA MET
[2022-02-03] VITALS (29 sets, daily range): BP systolic 112–162; BP diastolic 50–87; PULSE 51–92; RESP 11–61; TEMP 36.1–37.1; O2SAT 4–100; BMI 33.2
[2022-02-03 00:04] LABS: BNP,B-Type NATRIURETIC PEPTIDE 299.8 pg/mL (0-100); Differential Comment SCANNED
--- NOTE | 2022-02-03 00:12 | HP.PCM_ITS ---
HPI - General General Date of Admission: 02/03/22 Date of Service: 02/03/22 Chief Complaint: Acute shortness of breath HPI Narrative DANI SHETH, is a 71 M who presents to the emergency room with acute shortness of breath. Onset was approximately 1 hour prior to arrival while laying down to go to bed patient suddenly became dyspneic and began coughing and was unable to catch his breath so he came to the emergency room. Patient has a significant past medical history of coronary artery disease status post several MIs, CABG surgery 18 years ago, diagnosed with CHF 1 year ago with an EF of 40%. CXR shows bilateral pulmonary edema. Patient had a modestly elevated white count of 13,000 with a shift to the right for lymphocytes therefore I requested a COVID and flu swab be performed prior to going to the floor. Patient has responded well to BiPAP therapy in the emergency room is more comfortable with an oxygen saturation at 95% with respiratory rate of 20 and he is able to speak and answer questions quite well. Patient denies any chest pain but he does state he has had ongoing epigastric pain after he eats which seems to have contributed somewhat to this presentation today. Will admit to ICU due to the sudden onset of his acute respiratory distress and requiring BiPAP therapy. [facility] Medical History AAA (abdominal aortic aneurysm) Atherosclerotic heart disease of [place] coronary artery without angina pectoris Atrial fibrillation BPH (benign prostatic hyperplasia) CAD (coronary artery disease) CAD (coronary artery disease) Chronic insomnia Diabetes Diverticulosis Fibromyalgia History of ischemic cardiomyopathy History of left heart catheterization (LHC) (~10/22/20) HLD (hyperlipidemia) Hypertension Myocardial infarction PRAKASH (obstructive sleep apnea) Pulmonary nodules Restless leg syndrome Rheumatoid arthritis Thyroid disease Home Medications aspirin 81 mg tablet 81 mg PO DAILY 10/20/20 [History Last Taken Unknown] gabapentin 300 mg capsule 600 mg PO QHS nerve pain 10/20/20 [History Last Taken Unknown] losartan 100 mg tablet 150 mg PO DAILY blood pressure 10/20/20 [History Last Taken Unknown] pantoprazole 40 mg tablet,delayed release 40 mg PO DAILY reflux 10/20/20 [History Last Taken Unknown] acetaminophen 325 mg tablet (Tylenol) 650 mg PO Q4H PRN PRN Fever, pain 1-01/26 #0 tabs 10/23/20 [Rx Last Taken Unknown] metoprolol tartrate 25 mg tablet 25 mg PO BID bp 11/08/20 [History Last Taken Unknown] thyroid (pork) 60 mg tablet ([place] Thyroid) 120 mg PO DAILY thyroid 11/26/20 [History Last Taken Unknown] cholecalciferol (vitamin D3) 125 mcg (5,000 unit) tablet 125 mcg PO DAILY 03/18/21 [History Last Taken Unknown] glipizide 10 mg tablet, extended release 24 hr 10 mg PO DAILY 03/18/21 [History Last Taken Unknown] amiodarone 200 mg tablet 100 mg PO DAILY #15 tabs 07/07/21 [Rx Last Taken Unknown] cyanocobalamin (vitamin B-12) 1,000 mcg tablet (Vitamin B-12) 2,000 mcg PO DAILY 09/30/21 [History Last Taken Unknown] metformin 1,000 mg tablet 1,000 mg PO DAILY 09/30/21 [History Last Taken Unknown] polyethylene glycol 3350 17 gram/dose oral powder (Miralax) 17 g PO DAILY 09/30/21 [History Last Taken Unknown] wheat dextrin 3 gram/3.5 gram oral powder packet (Benefiber Clear Sugar Free(dextrin)) 1 packet PO DAILY 09/30/21 [History Last Taken Unknown] furosemide 40 mg tablet 40 mg PO DAILY #90 tabs 10/14/21 [Rx Last Taken Unknown] isosorbide mononitrate 30 mg tablet,extended release 24 hr 60 mg PO DAILY #180 tabs 01/06/22 [Rx Last Taken Unknown] Allergy/AdvReac Type Severity Reaction Status Date / Time Ohajjnt-WJH-OvI Reductase Allergy Severe Severe Verified 02/02/22 22:37 Inhibitor mouth sores [Hegiuvz-Zxw-Gcj Reductase Inhibitor] Sulfa (Sulfonamide Allergy Unknown Unknown Verified 02/02/22 22:37 Antibiotics) levothyroxine sodium Allergy mouth Verified 02/02/22 22:37 [From Synthroid] sores,diarrhea,stomach cramps fish oil AdvReac Severe Mouth Sores Verified 02/02/22 22:37 apixaban [From Eliquis] AdvReac Intermediate blood in Verified 02/02/22 22:37 stools morphine AdvReac Nausea/Vom/ Verified 02/02/22 22:37 Diarrhea Family History Brother Diabetes CAD (coronary artery disease) Alzheimer disease Celiac disease Hypertension Heart disease Brother CAD (coronary artery disease) Surgical History History of carpal tunnel release History of trigger finger Hx of bladder cancer Hx of CABG Hx of cholecystectomy Hx of elbow surgery Hx of lipoma Hx of repair of rotator cuff Hx of shoulder replacement Hx of total knee replacement Hx of transurethral resection of prostate S/P CABG (coronary artery bypass graft) S/P PTCA (percutaneous transluminal coronary angioplasty) Social History Smoking Status: Never smoker second hand exposure: No alcohol intake: never substance use type: does not use caffeine: Yes Type: coffee Number of servings: 2 what type of physical activity do you participate in: none frequency: does not exercise seatbelt use: always ROS Constitutional Constitutional: Denies chills or fever(s) Eyes Eyes: Denies blurry vision ENT HEENT: Denies abnormal hearing Cardiovascular Cardiovascular: Reports chest pain Respiratory/Chest Respiratory/Chest: Reports cough and shortness of breath at rest Gastrointestinal Gastrointestinal: Reports abdominal pain Genitourinary Genitourinary: Denies dysuria Musculoskeletal Musculoskeletal: Denies back pain Integumentary Integumentary: Denies dry skin Neurologic Neurologic: Denies abnormal gait Psychiatric Psychiatric: Denies depression Vital Signs Vital Signs Vital Signs: 02/02/22 22:25 02/02/22 22:28 02/02/22 22:40 Temperature 95.2 F L 96.5 F L 95.8 F L Temperature Source Temporal Temporal Temporal Pulse Rate 95 126 H 98 Respiratory Rate 33 H 28 H 32 H Respiratory Effort Respiratory Depth Respiratory Pattern Blood Pressure 199/130 H 199/130 H 203/126 H Blood Pressure Mean 153 153 151 Pulse Ox 73 67 96 Oxygen Delivery Method Room Air Bi-pap Bi-pap Oxygen Flow Rate (L/min) 100 Fraction of Inspired Oxygen (FIO2) 02/02/22 22:44 02/02/22 23:21 02/02/22 22:35 Temperature Temperature Source Pulse Rate 69 111 H Respiratory Rate 22 H 33 H Respiratory Effort Short of Breath Labored Respiratory Depth Shallow Respiratory Pattern Tachypnea Tachypnea Blood Pressure 129/76 H Blood Pressure Mean 93 Pulse Ox 97 94 Oxygen Delivery Method Room Air Bi-pap Oxygen Flow Rate (L/min) 80 Fraction of Inspired Oxygen (FIO2) 100 02/02/22 23:28 02/02/22 23:57 Temperature 98.8 F Temperature Source Temporal Pulse Rate 67 72 Respiratory Rate 21 H 22 H Respiratory Effort Respiratory Depth Respiratory Pattern Tachypnea Blood Pressure 116/68 Blood Pressure Mean 84 Pulse Ox 99 96 Oxygen Delivery Method Bi-pap Oxygen Flow Rate (L/min) Fraction of Inspired Oxygen (FIO2) 40 Weight Weight: 222 lb 14.197 oz Body Mass Index (BMI) 33.9 Physical Exam Const oriented x3 General Appearance: cooperative HEENT normocephalic and head/scalp atraumatic Eyes PERRL Neck no lymphadenopathy Resp Effort and Inspection: respiratory distress Auscultation: diminished lung sounds; Negative for rales, rhonchi or wheezes Cardio regular rhythm, S1 normal heart sound and S2 normal heart sound GI normal to inspection, nondistended, normoactive bowel sounds Extremity normal capillary refill Skin General Skin Exam: no breakdown Neuro no focal motor deficits and no sensory deficits noted Psych thought process normal, cooperative and affect normal Results Lab / Micro Data Result Diagrams: 02/02/22 22:35 02/02/22 22:35 Labs: Laboratory Results - last 24 hr 02/02/22 22:35: WBC 13.3 H, RBC 5.46, Hgb 15.5, Hct 48.2, MCV 88.3, MCH 28.4, MCHC 32.2, RDW Std Deviation 45.8 H, RDW Coeff of Dexter 14.3, Plt Count 113 L, MPV 12.0, Immature Gran % (Auto) 0.700, Neut % (Auto) 38.4 L, Lymph % (Auto) 50.9 H, [place] % (Auto) 8.7, Eos % (Auto) 0.8, Baso % (Auto) 0.5, Absolute Neuts (auto) 5.1, Absolute Lymphs (auto) 6.76 H, Nucleated RBC % 0, Differential Comment SCANNED 02/02/22 22:35: Sodium 139, Potassium 4.2, Chloride 106, Carbon Dioxide 22.0, Anion Gap 11, BUN 22 H, Creatinine 1.81 H, Estim Creat Clear Calc 35.69, Est GFR (MDRD) Af Amer 48 L, Est GFR (MDRD) Non-Af 39 L, BUN/Creatinine Ratio 12.2, Glucose 205 H, Calcium 10.5 H, Troponin I High Sens 24 02/02/22 22:35: B-Natriuretic Peptide 299.8 H ABG Data ABG results: ABG 02/02/22 22:50 Specimen Type ART Sample Site R Radial pH 7.24 L Bicarbonate Actual 19.0 L Total CO2 20 Base Excess -8 L O2 Saturation 97 O2 % 100 ABG pCO2 44.2 ABG pO2 110 H Mike Test Positive O2 Delivery Device BiPAP Clinical Comments 01/02 12 100% Radiology Impression Chest X-Ray 02/02/22 22:58 IMPRESSION: Interstitial and alveolar pulmonary infiltrates without other major interval change. Electronically Signed: Thom Bejarano, at 23:12 EDT Reading Location ID and State: [address] [place] [address] Tel [phone], Service support , Assessment & Plan Assessment/Plan (1) Respiratory failure with hypoxia: (2) History of ischemic cardiomyopathy: (3) Atherosclerotic heart disease of [place] coronary artery without angina pectoris: QUALIFIERS: [place] vs. transplanted heart: [place] heart Qualified Code(s): I25.10 - Atherosclerotic heart disease of [place] coronary artery without angina pectoris (4) Flash pulmonary edema: (5) CAD (coronary artery disease): QUALIFIERS: Coronary Disease-Associated Artery/Lesion type: [place] artery [place] vs. transplanted heart: [place] heart (6) HLD (hyperlipidemia): QUALIFIERS: Hyperlipidemia type: unspecified Qualified Code(s): E78.5 - Hyperlipidemia, unspecified (7) S/P CABG (coronary artery bypass graft): (8) Paroxysmal atrial fibrillation with RVR: (9) PRAKASH (obstructive sleep apnea): (10) Diabetes: (11) BPH (benign prostatic hyperplasia): (12) Thyroid disease: PLAN: Plan 1 respiratory failure with hypoxia?suspect secondary to congestive heart failure BNP P is pending last known ejection fraction was 1 year ago at 40%. Patient received dose of Lasix in the emergency room was placed on BiPAP and has had improvement in his condition we will continue BiPAP therapy throughout the night and reevaluate in the morning. 2. Coronary artery disease?continue statin therapy as well as isosorbide 3. Diabetes?continue routine home medications 4. Thyroid disorder?check TSH with next labs 5. DVT prophylaxis- lmwh 6. HLD- cont statin Charges/Coding Visit Charges Inpatient E&M: 74095 Init Hosp L3
[2022-02-03 02:56] LABS: Bedside Glucose 161 mg/dL (74-106)
[2022-02-03 03:11] LABS: Troponin-I HS 696 pg/mL (3.0-78.0)
[2022-02-03 04:41] LABS: Absolute Lymphocyte Count 1.02 X10^3/uL (0.83-4.51); Absolute Neutrophil Count 9.3 X10^3/uL (2.0-7.7); Basophil# 0.02 X10^3/uL; Basophil% 0.2 % (0-1); Eosinophil# 0.01 X10^3/uL; Eosinophils% 0.1 % (0-5); Hematocrit 36.7 % (40-54); Hemoglobin 11.8 g/dL (13.0-16.5); Lymphocyte # 1.02 X10^3/ul (0.83-4.51); Lymphocyte % 9.2 % (19-41); Mean Corp Hgb Conc 32.2 g/dL (32-36); Mean Corpuscular Hgb 28.5 pg (27.0-32.0); Mean Corpuscular Volume 88.6 fL (80-94); Mean Platelet Vol. 10.3 fl (6.2-12.0); Monocyte# 0.76 X10^3/uL; Monocyte% 6.8 % (0-10); NRBC Flagged by Analyzer 0 % (0-5); Neutrophil # 9.28 X10^3/uL (2.7-7.7); Neutrophil % 83.3 % (47-70); Platelet Count 218 K/mm3 (150-450); RBC Distribution Width CV 14.3 % (11.6-14.6); RBC Distribution Width SD 45.3 fl (35.1-43.9); Red Blood Count 4.14 M/mm3 (4.6-6.2); White Blood Count 11.1 K/mm3 (4.4-11.0)
[2022-02-03 05:22] LABS: Anion Gap 8 (5-15); BUN 24 mg/dL (7-18); BUN/Creat Ratio 14.1 RATIO (10-20); Calcium,Total 9.8 mg/dL (8.5-10.1); Chloride 106 mmol/L (98-107); EST Glomerular Filtration Rate 42 mL/min (>60); Est Glom Filt Rate - Afr Amer 51 mL/min (>60); Glucose 151 mg/dL (74-106); Potassium 4.2 mmol/L (3.5-5.1); Sodium Level 141 mmol/L (136-145); Thyroid Stim Hormone (TSH) 0.22 uIU/mL (0.358-3.74)
--- NOTE | 2022-02-03 06:14 | EX.PCM.CONCC ---
Assessment & Plan Assessment/Plan (1) Respiratory failure with hypoxia: PLAN: Plan RECOMMENDATIONS: 1. Wean supplemental oxygen to maintain saturations at or above 90%. 2. Continue baseline antihypertensive regimen. 3. Encourage incentive spirometer use and mobilize patient as tolerated. 4. Initiate CPAP therapy with naps and nightly, per home regimen. 5. Consider cardiology consultation for further optimization of his cardiac regimen. 6. The patient is medically stable for transfer out of the intensive care unit. IMPRESSIONS: 1. Acute hypoxemic respiratory failure I do suspect that the patient's presenting symptoms were likely secondary to flash pulmonary edema in the setting of hypertensive emergency. He did respond avidly to the use of diuretics and noninvasive positive pressure ventilatory support. His chest x-ray findings were consistent with congestive heart failure. The patient is improved this morning from a respiratory perspective, resting comfortably in bed on 2 L/min via nasal cannula. Plan to continue to wean supplemental oxygen as tolerated. Encourage incentive spirometer use and mobilize patient as tolerated. It may be beneficial to have the patient evaluated by cardiology to determine if he is baseline cardiac medications need to be further optimized to prevent future recurrence of this issue. 2. Troponin elevation/history of ischemic cardiomyopathy status post CABG Likely secondary to demand ischemia in the setting of #1. 3. Obesity/chronic kidney disease/diabetes mellitus/obstructive sleep apnea Complicates care, management, recovery and prognosis. Continue home medications as indicated. Recommend nocturnal CPAP therapy per home regimen. This note was generated with [employer] dictation software. It may contain incorrect words, spelling, and punctuation that were not noted in checking the note before signing. HPI Consult Data Date of Consult: 02/03/22 HPI Narrative Reason for Consultation: Acute hypoxemic respiratory failure HPI Narrative: The patient is a 71-year-old male, with a history as outlined below, who presented to the emergency department on February 03 with shortness of breath. The patient has a known history of atrial fibrillation with RVR leading to flash pulmonary edema along with coronary artery disease status post CABG. the patient also has a known history of sleep apnea, for which he reports compliance with use of nocturnal CPAP therapy. He reports that he oftentimes experiences abdominal discomfort which subsequently leads to elevation in his blood pressure. This apparently happened last night as well. On presentation to the emergency department, the patient was noted to be significantly hypertensive, tachycardic and tachypneic. Initial laboratory evaluation revealed a white blood cell count of 13,000. Platelet count was low at 113,000. Chemistry profile was notable for a creatinine of 1.8. Troponin was elevated at 696 with a BNP of 300. Plain film chest x-ray revealed stigmata of congestive heart failure. The patient was ultimately placed on BiPAP therapy. Arterial blood gas demonstrated a pH of 7.24 with a PCO2 of 44 and PO2 of 110. He did receive IV Lasix as well. The patient was subsequently admitted to the medical intensive care unit for further management. This morning, the patient was able to be removed from BiPAP therapy and is currently maintaining saturations in the high 90s on 2 L/min. He denies any chest pain or resting shortness of breath. [facility] Medical History AAA (abdominal aortic aneurysm) Atherosclerotic heart disease of [place] coronary artery without angina pectoris Atrial fibrillation BPH (benign prostatic hyperplasia) CAD (coronary artery disease) CAD (coronary artery disease) Chronic insomnia Diabetes Diverticulosis Fibromyalgia History of ischemic cardiomyopathy History of left heart catheterization (LHC) (~10/22/20) HLD (hyperlipidemia) Hypertension Myocardial infarction PRAKASH (obstructive sleep apnea) Pulmonary nodules Restless leg syndrome Rheumatoid arthritis Thyroid disease Home Medications aspirin 81 mg tablet 81 mg PO DAILY 10/20/20 [History Last Taken Unknown] gabapentin 300 mg capsule 600 mg PO QHS nerve pain 10/20/20 [History Last Taken Unknown] losartan 100 mg tablet 150 mg PO DAILY blood pressure 10/20/20 [History Last Taken Unknown] pantoprazole 40 mg tablet,delayed release 40 mg PO DAILY reflux 10/20/20 [History Last Taken Unknown] acetaminophen 325 mg tablet (Tylenol) 650 mg PO Q4H PRN PRN Fever, pain 1-01/26 #0 tabs 10/23/20 [Rx Last Taken Unknown] metoprolol tartrate 25 mg tablet 25 mg PO BID bp 11/08/20 [History Last Taken Unknown] thyroid (pork) 60 mg tablet ([place] Thyroid) 120 mg PO DAILY thyroid 11/26/20 [History Last Taken Unknown] cholecalciferol (vitamin D3) 125 mcg (5,000 unit) tablet 125 mcg PO DAILY 03/18/21 [History Last Taken Unknown] glipizide 10 mg tablet, extended release 24 hr 10 mg PO DAILY 03/18/21 [History Last Taken Unknown] amiodarone 200 mg tablet 100 mg PO DAILY #15 tabs 07/07/21 [Rx Last Taken Unknown] cyanocobalamin (vitamin B-12) 1,000 mcg tablet (Vitamin B-12) 2,000 mcg PO DAILY 09/30/21 [History Last Taken Unknown] metformin 1,000 mg tablet 1,000 mg PO DAILY 09/30/21 [History Last Taken Unknown] polyethylene glycol 3350 17 gram/dose oral powder (Miralax) 17 g PO DAILY 09/30/21 [History Last Taken Unknown] wheat dextrin 3 gram/3.5 gram oral powder packet (Benefiber Clear Sugar Free(dextrin)) 1 packet PO DAILY 09/30/21 [History Last Taken Unknown] furosemide 40 mg tablet 40 mg PO DAILY #90 tabs 10/14/21 [Rx Last Taken Unknown] isosorbide mononitrate 30 mg tablet,extended release 24 hr 60 mg PO DAILY #180 tabs 01/06/22 [Rx Last Taken Unknown] Allergy/AdvReac Type Severity Reaction Status Date / Time Tretgnf-RCG-BlP Reductase Allergy Severe Severe Verified 02/02/22 22:37 Inhibitor mouth sores [Imnanha-Ydz-Nfx Reductase Inhibitor] Sulfa (Sulfonamide Allergy Unknown Unknown Verified 02/02/22 22:37 Antibiotics) levothyroxine sodium Allergy mouth Verified 02/02/22 22:37 [From Synthroid] sores,diarrhea,stomach cramps fish oil AdvReac Severe Mouth Sores Verified 02/02/22 22:37 apixaban [From Eliquis] AdvReac Intermediate blood in Verified 02/02/22 22:37 stools morphine AdvReac Nausea/Vom/ Verified 02/02/22 22:37 Diarrhea Family History Brother Diabetes CAD (coronary artery disease) Alzheimer disease Celiac disease Hypertension Heart disease Brother CAD (coronary artery disease) Surgical History History of carpal tunnel release History of trigger finger Hx of bladder cancer Hx of CABG Hx of cholecystectomy Hx of elbow surgery Hx of lipoma Hx of repair of rotator cuff Hx of shoulder replacement Hx of total knee replacement Hx of transurethral resection of prostate S/P CABG (coronary artery bypass graft) S/P PTCA (percutaneous transluminal coronary angioplasty) Social History Smoking Status: Never smoker second hand exposure: No alcohol intake: never substance use type: does not use caffeine: Yes Type: coffee Number of servings: 2 what type of physical activity do you participate in: none frequency: does not exercise seatbelt use: always ROS ROS Narrative 10 systems were reviewed with pertinent positives as noted in the HPI above. Physical Exam Const alert, oriented x3 and no apparent distress General Appearance: cooperative Nutritional Appearance: obese HEENT normocephalic and head/scalp atraumatic Eyes PERRL, EOMs intact bilaterally and conjunctivae normal Neck supple General: trachea midline Chest inspection of chest normal Resp normal respiratory effort Effort and Inspection: able to speak in complete sentences Auscultation: Negative for rales, rhonchi or wheezes Cardio regular rate and regular rhythm GI normal to inspection, nondistended, normoactive bowel sounds Extremity no clubbing, cyanosis or edema Skin no rashes or lesions noted Neuro oriented x3, CN's II-XII intact bilaterally, moves all extremities and no focal motor deficits Psych cooperative and affect normal Lab / Micro Data Result Diagrams: 02/03/22 04:34 02/03/22 04:34 Labs: Laboratory Results - last 24 hr 02/02/22 22:35: WBC 13.3 H, RBC 5.46, Hgb 15.5, Hct 48.2, MCV 88.3, MCH 28.4, MCHC 32.2, RDW Std Deviation 45.8 H, RDW Coeff of [place] 14.3, Plt Count 113 L, MPV 12.0, Immature Gran % (Auto) 0.700, Neut % (Auto) 38.4 L, Lymph % (Auto) 50.9 H, [place] % (Auto) 8.7, Eos % (Auto) 0.8, Baso % (Auto) 0.5, Absolute Neuts (auto) 5.1, Absolute Lymphs (auto) 6.76 H, Nucleated RBC % 0, Differential Comment SCANNED 02/02/22 22:35: Sodium 139, Potassium 4.2, Chloride 106, Carbon Dioxide 22.0, Anion Gap 11, BUN 22 H, Creatinine 1.81 H, Estim Creat Clear Calc 35.69, Est GFR (MDRD) Af Amer 48 L, Est GFR (MDRD) Non-Af 39 L, BUN/Creatinine Ratio 12.2, Glucose 205 H, Calcium 10.5 H, Troponin I High Sens 24 02/02/22 22:35: B-Natriuretic Peptide 299.8 H 02/03/22 01:39: POC Glucose 161 H 02/03/22 02:15: Troponin I High Sens Cancelled 02/03/22 02:45: Troponin I High Sens 696 H* 02/03/22 04:34: WBC 11.1 H, RBC 4.14 L, Hgb 11.8 L, Hct 36.7 L, MCV 88.6, MCH 28.5, MCHC 32.2, RDW Std Deviation 45.3 H, RDW Coeff of [place]ter 14.3, Plt Count 218, MPV 10.3, Immature Gran % (Auto) 0.400, Neut % (Auto) 83.3 H, Lymph % (Auto) 9.2 L, [place] % (Auto) 6.8, Eos % (Auto) 0.1, Baso % (Auto) 0.2, Absolute Neuts (auto) 9.3 H, Absolute Lymphs (auto) 1.02, Nucleated RBC % 0 02/03/22 04:34: Sodium 141, Potassium 4.2, Chloride 106, Carbon Dioxide 27.0, Anion Gap 8, BUN 24 H, Creatinine 1.70 H, Estim Creat Clear Calc 38.00, Est GFR (MDRD) Af Amer 51 L, Est GFR (MDRD) Non-Af 42 L, BUN/Creatinine Ratio 14.1, Glucose 151 H, Calcium 9.8, TSH 0.22 L Micro: Microbiology 02/03/22 00:00 Nasal Secretion SARS-CoV-2 & FLU Antigen (Rapid) - Final ABG Data ABG results: ABG 02/02/22 22:50 Specimen Type ART Sample Site R Radial pH 7.24 L Bicarbonate Actual 19.0 L Total CO2 20 Base Excess -8 L O2 Saturation 97 O2 % 100 ABG pCO2 44.2 ABG pO2 110 H Mike Test Positive O2 Delivery Device BiPAP Clinical Comments 01/02 12 100% Radiology Impression Chest X-Ray 02/02/22 22:58 IMPRESSION: Interstitial and alveolar pulmonary infiltrates without other major interval change. Electronically Signed: Thom Bejarano DO at 23:12 EDT Reading Location ID and State: [facility] / [place] Tel [phone], Service support , Charges/Coding Visit Charges Inpatient E&M: 65152 Init Hosp L3
--- NOTE | 2022-02-03 07:10 | PN.HOSP_ITS ---
Subjective Subjective Patient is a 71-year-old gentleman with known congestive heart failure with reduced ejection fraction admitted with progressive shortness of breath and assessment of acute hypoxic respiratory failure secondary to flash pulmonary edema made placed on noninvasive ventilation BiPAP admitted to the intensive care unit Objective Data Objective Data Vital Signs: Vital Signs Temp Pulse Resp BP Pulse Ox O2 Del Method O2 Flow Rate 97.5 F L 60 11 L 138/50 H 97 Nasal Cannula 40 02/03/22 02:00 02/03/22 07:00 02/03/22 07:00 02/03/22 07:00 02/03/22 07:00 02/03/22 07:00 02/03/22 06:00 FiO2 2 02/03/22 07:00 Oxygen Flow Rate (L/min) 40 Oxygen Delivery Method Nasal Cannula Weight: 99 kg Body Mass Index (BMI) 33.2 Intake & Output: Intake and Output for Last 24 Hours 02/01/22 02/02/22 02/03/22 23:59 23:59 23:59 Output Total 575 / 575 Balance -575 / -575 Lab / Micro Data Result Diagrams: 02/03/22 04:34 02/03/22 04:34 Labs: Laboratory Results - last 24 hr 02/02/22 22:35: WBC 13.3 H, RBC 5.46, Hgb 15.5, Hct 48.2, MCV 88.3, MCH 28.4, MCHC 32.2, RDW Std Deviation 45.8 H, RDW Coeff of Dex[place] 14.3, Plt Count 113 L, MPV 12.0, Immature Gran % (Auto) 0.700, Neut % (Auto) 38.4 L, Lymph % (Auto) 50.9 H, [place] % (Auto) 8.7, Eos % (Auto) 0.8, Baso % (Auto) 0.5, Absolute Neuts (auto) 5.1, Absolute Lymphs (auto) 6.76 H, Nucleated RBC % 0, Differential Comment SCANNED 02/02/22 22:35: Sodium 139, Potassium 4.2, Chloride 106, Carbon Dioxide 22.0, Anion Gap 11, BUN 22 H, Creatinine 1.81 H, Estim Creat Clear Calc 35.69, Est GFR (MDRD) Af Amer 48 L, Est GFR (MDRD) Non-Af 39 L, BUN/Creatinine Ratio 12.2, Glucose 205 H, Calcium 10.5 H, Troponin I High Sens 24 02/02/22 22:35: B-Natriuretic Peptide 299.8 H 02/03/22 01:39: POC Glucose 161 H 02/03/22 02:15: Troponin I High Sens Cancelled 02/03/22 02:45: Troponin I High Sens 696 H* 02/03/22 04:34: WBC 11.1 H, RBC 4.14 L, Hgb 11.8 L, Hct 36.7 L, MCV 88.6, MCH 28.5, MCHC 32.2, RDW Std Deviation 45.3 H, RDW Coeff of Dexter 14.3, Plt Count 218, MPV 10.3, Immature Gran % (Auto) 0.400, Neut % (Auto) 83.3 H, Lymph % (Auto) 9.2 L, [place] % (Auto) 6.8, Eos % (Auto) 0.1, Baso % (Auto) 0.2, Absolute Neuts (auto) 9.3 H, Absolute Lymphs (auto) 1.02, Nucleated RBC % 0 02/03/22 04:34: Sodium 141, Potassium 4.2, Chloride 106, Carbon Dioxide 27.0, Anion Gap 8, BUN 24 H, Creatinine 1.70 H, Estim Creat Clear Calc 38.00, Est GFR (MDRD) Af Amer 51 L, Est GFR (MDRD) Non-Af 42 L, BUN/Creatinine Ratio 14.1, Glucose 151 H, Calcium 9.8, TSH 0.22 L Micro: Microbiology 02/03/22 00:00 Nasal Secretion SARS-CoV-2 & FLU Antigen (Rapid) - Final ABG Data ABG results: ABG 02/02/22 22:50 Specimen Type ART Sample Site R Radial pH 7.24 L Bicarbonate Actual 19.0 L Total CO2 20 Base Excess -8 L O2 Saturation 97 O2 % 100 ABG pCO2 44.2 ABG pO2 110 H Mike Test Positive O2 Delivery Device BiPAP Clinical Comments 01/02 12 100% Radiography Diagnostic Testing: Radiology Impression Chest X-Ray 02/02/22 22:58 IMPRESSION: Interstitial and alveolar pulmonary infiltrates without other major interval change. Electronically Signed: Thom Bejarano DO at 23:12 EDT , Physical Exam Narrative GENERAL: cooperative HEENT: Atraumatic; normocephalic EYES; Anicteric, Normal Conjunctiva NECK; supple, normal thyroid, RESPIRATORY: Diminished to auscultation CARDIOVASCULAR: Regular S1 S2, GI: soft, normoactive bowel sounds, : No Renal angle tenderness; EXTREMITIES: Trace bipedal edema, no clubbing, MUSCULOSKELETAL: no muscle wasting NEURO: Awake; no lateralizing signs. SKIN: No Rash PSYCH; Flat affect Assessment & Plan Assessment/Plan (1) Respiratory failure with hypoxia: (2) History of ischemic cardiomyopathy: (3) Atherosclerotic heart disease of [place] coronary artery without angina pectoris: QUALIFIERS: [place] vs. transplanted heart: [place] heart Qualified Code(s): I25.10 - Atherosclerotic heart disease of [place] coronary artery withou t angina pectoris (4) Flash pulmonary edema: (5) CAD (coronary artery disease): QUALIFIERS: Coronary Disease-Associated Artery/Lesion type: [place] artery [place] vs. transplanted heart: [place] heart (6) HLD (hyperlipidemia): QUALIFIERS: Hyperlipidemia type: unspecified Qualified Code(s): E78.5 - Hyperlipidemia, unspecified (7) S/P CABG (coronary artery bypass graft): (8) Paroxysmal atrial fibrillation with RVR: (9) PRAKASH (obstructive sleep apnea): (10) Diabetes: (11) BPH (benign prostatic hyperplasia): (12) Thyroid disease: PLAN: Plan Patient is a 71-year-old gentleman with known congestive heart failure with reduced ejection fraction admitted with progressive shortness of breath and assessment of acute hypoxic respiratory failure secondary to flash pulmonary edema made placed on noninvasive ventilation BiPAP admitted to the intensive care unit 1. Acute hypoxic respiratory failure (present on admission) ? Patient acute hypoxic respiratory failure on admission was evidenced by his tachypnea with respiratory rate of 33 oxygen saturation 73% as well as patient r eported to be significantly dyspneic at rest. Patient had to be placed on noninvasive ventilation BiPAP admitted to the intensive care unit. Patient BiPAP has since been weaned off 2. Acute on chronic congestive heart failure with reduced ejection fraction ? Patient presented with flash pulmonary edema as well as acute hypoxic respiratory failure managed with diuresis 3. Acute hypertensive emergency ? With evidence of endorgan failure by way of flash pulmonary edema with resultant respiratory failure. Patient blood pressure management protocol blood pressure has since improved 4. Acute non-STEMI ? Patient has underlying history of coronary artery disease with previous CABG as well as subsequent PCI presented with flash pulmonary edema as well as progressive shortness of breath. Diagnosed to be in acute congestive heart failure. Subsequent serial cardiac enzymes ordered ordered 2D echo and consultation placed to cardiology. Patient already on aspirin, beta-jillian statin therapy as well as KADEN inhibitors. Patient started on therapeutic Lovenox pending cardiology evaluation 5. Coronary artery disease ? With previous CABG as well as subsequent angioplasty. Patient is on beta- blockers, statin therapy, KADEN inhibitor's as well as aspirin. Patient was found to have elevated troponin with high-sensitivity troponin of 696. Consult placed to cardiology 6.Hypothyroidism ? Patient is on [place] Thyroid did continue 7. Class I obesity with BMI of 33.2 ? Weight loss advised 8. Vitamin D deficiency ? Patient is on colecalciferol did continue 9. Diabetic polyneuropathy ? Patient is on gabapentin did continue 10. Vitamin B12 deficiency ? Patient is on oral supplement with 200 mcg of cyanocobalamin did continue 11. Diabetes mellitus type II -patient's oral hypoglycemics held. Placed on long acting insulin, Accu-Cheks a.c. and at bedtime and covered with sliding scale insulin 12. DVT prophylaxis ? On Lovenox Total time spent evaluating patient, review of labs, subsequent adjustment of management orders, and discussion with other providers involved in patient's care; 55 minutes Charges/Coding Procedures Hospitalists Procedures: [id number] Prolonged InPt Service; first hour
[2022-02-03] MEDS: Thyroid 60 MG Tablet 120 MG PO (07:18)
[2022-02-03] MEDS: Aspirin 81 MG TAB.CHEW PO (08:05)
[2022-02-03] MEDS: Amiodarone 200 MG Tablet 100 MG PO (08:05)
[2022-02-03] MEDS: glipiZIDE XL 5 MG Tablet 10 MG PO (08:06)
[2022-02-03] MEDS: metFORMIN HCl 1,000 MG Tablet 1000 MG PO (08:06)
[2022-02-03] MEDS: Metoprolol Tartrate 25 MG Tablet PO ×2 (08:07→21:47)
[2022-02-03] MEDS: Isosorbide Mononitrate 60 MG Tablet PO (08:07)
[2022-02-03] MEDS: Losartan Potassium 50 MG Tablet 150 MG PO (08:07)
[2022-02-03] MEDS: Furosemide 40 MG Tablet PO (08:07)
[2022-02-03] MEDS: Enoxaparin 40 MG/0.4 ML Syringe SC (08:08)
[2022-02-03] MEDS: Pantoprazole Sodium 40 MG Tablet PO (08:08)
[2022-02-03 08:30] LABS: Bedside Glucose 117 mg/dL (74-106)
--- NOTE | 2022-02-03 10:19 | ECHOCS_ITS ---
Reason For Study: S/P [place] Procedure This was a 2D Doppler, Color Flow transthoracic echocardiogram. The study was technically difficult. Contrast injection was performed. Exam performed portable in patient room. Left Ventricle Normal LV size. Mild segmental systolic dysfunction (see wall motion). The estimated ejection fraction is 50 %. No evidence for diastolic dysfunction. Mid-Inferior: Hypokinetic. Mid- inferoseptal : Hypokinetic. Mid-anteroseptal : Hypokinetic. Anterior [place] : Hypokinetic. Inferior [place] : Hypokinetic. Septal [place] : Hypokinetic. Right Ventricle Normal RV size. Normal systolic function. Atria Normal left atrium. Normal right atrium. No doppler evidence for ASD. Mitral Valve There is no mitral annular calcification. Mild focal mitral valve calcification of the anterior leaflet. Mild (1+) mitral valve insufficiency. Tricuspid Valve Normal tricuspid valve. Trivial tricuspid valve insufficiency. Unable to estimate RV systolic pressure/pulmonary artery pressure due to technically difficult study. Aortic Valve Trisinus/trileaflet aortic valve. Moderate focal aortic valve calcification. Mild (1+) aortic valve insufficiency. Pulmonic Valve The pulmonic valve is not well visualized. Mild (1+) pulmonic valve insufficiency. Great Vessels Borderline-mildly enlarged aortic root. Calcified aortic root. Pericardium/Pleural No pericardial effusion. Medication Diluted definity 4ml given slow IV push to enhance endocardial definition. MMode/2D Measurements & Calculations LVIDd: 5.0 cm IVSd: 1.2 cm Ao root diam: 3.8 cm LVIDs: 3.7 cm LVPWd: 1.1 cm RVDd: 3.3 cm FS: 25.4 % LAV(MOD-bp): 45.7 ml LVAd ap4: 41.0 cm2 SV(MOD-sp4): 89.1 ml LAV(MOD-bp) Indexed: 21.5 ml/m2 LVLd ap4: 9.0 cm LAV(MOD-sp2): 45.3 ml EDV(MOD-sp4): 149.1 ml LAV(MOD-sp4): 44.1 ml EDV(sp4-el): 158.8 ml LVAs ap4: 24.1 cm2 LVLs ap4: 7.8 cm ESV(MOD-sp4): 60.0 ml ESV(sp4-el): 63.7 ml EF(MOD-sp4): 59.8 % EF(sp4-el): 59.9 % SV(sp4-el): 95.1 ml LA A4 area: 16.9 cm2 LA dimension(2D): 3.7 cm RA A4 area: 15.3 cm2 Time Measurements MV dec time: 0.33 sec Doppler Measurements & Calculations MV E max samy: 64.7 cm/sec Lat Peak E' Samy: 10.0 cm/sec Med Peak E' Samy: 7.3 cm/sec MV A max samy: 98.2 cm/sec E/E' lat: 6.5 E/E' med: 8.8 MV E/A: 0.66 Ao V2 max: 148.7 cm/sec AI max samy: 368.6 cm/sec LV V1 max: 121.7 cm/sec Ao max P.8 mmHg AI max P.3 mmHg LV V1 max P.9 mmHg AI dec slope: 166.2 cm/sec2 AI P1/2t: 649.7 msec PA V2 max: 122.2 cm/sec ECHO/Echo Complete W/ Contrast Interpretation Summary The study was technically difficult. Contrast injection was performed. Mild segmental systolic dysfunction (see wall motion). The estimated ejection fraction is 50 %. Mild focal mitral valve calcification of the anterior leaflet. Mild (1+) mitral valve insufficiency. Trivial tricuspid valve insufficiency. Moderate focal aortic valve calcification. Mild (1+) aortic valve insufficiency. Mild (1+) pulmonic valve insufficiency. Borderline-mildly enlarged aortic root. Calcified aortic root. Unable to estimate RV systolic pressure/pulmonary artery pressure due to techni shavon difficult study. No evidence for diastolic dysfunction. Ordering Physician: Preet Choudhury Referring Physician: ALLAN SUBRAMANIAN Performed By: Chery Amador RDCS
[2022-02-03 11:20] LABS: Bedside Glucose 137 mg/dL (74-106)
[2022-02-03 11:26] LABS: Troponin-I HS 1624 pg/mL (3.0-78.0)
--- NOTE | 2022-02-03 11:45 | CASEMGMT ---
RN JANICE Face to Face with patient for initial transition planning/care coordination assessment. RN CM introduced self and role at [facility]. Patient sitting in chair, alert and oriented. Patient willing to participate in assessment and is able to answer all questions appropriately. Care providers, pharmacy, and demographics verified. Patient wishes to discharge home, denies need for home health at this time. Patient states he has no further needs or concerns at this time. CM to follow for discharge planning needs that may arise. 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 Patient states he is independent at home. Transportation: self, DME/HHC: Patient has raised toilet, cane, grab bars, and cpap at home. No previous HHC or SNF. Will monitor for home oxygen at discharge. Disposition Plan: Patient to discharge home with family support and follow-up plans in place. Ophelia WYNN, RN, CM
--- NOTE | 2022-02-03 13:43 | NURSING ---
report called to [facility]cu transferred per chair with belongings to room 129
--- NOTE | 2022-02-03 15:48 | CON.PCM.CA_ITS ---
Assessment & Plan Assessment/Plan (1) Acute respiratory failure with hypoxia: PLAN: The patient presented with concerns of acute respiratory failure. It was thought this was secondary to concerns of flash pulmonary edema brought out by a hypertensive urgency/emergency event. The patient required transient ICU care as noted. He appears to be symptomatically improved and clinically improved at this time. He will continue to be followed. (2) Flash pulmonary edema: PLAN: The patient had an episode thought compatible with flash pulmonary edema. He has had an episode similar to this in 2020 as noted. He underwent extensive noninvasive and invasive evaluation at that time with results as noted. At the moment there are concerns as to whether this was related to his hypertensive event. At the moment he appears to be improved. He will continue to be monitored. He will continue medical therapy. It may be reasonable based upon history of flash pulmonary edema to further evaluate him with respect to renal artery duplex study for any obvious evidence of renal artery stenosis that would be contributing to his blood pressure changes and these events. (3) Non-ST elevation (NSTEMI) myocardial infarction: PLAN: The patient has had abnormal cardiac enzymes. This may be a type II event brought out by his hypertension superimposed upon his cardiovascular disease process bringing out his flash pulmonary edema. At the moment his cardiac enzymes will be followed. His ECG will be followed. He has been asked to have an echocardiogram to reassess his left ventricular wall motion and systolic function. In the interim he will continue medical therapy. (4) Atherosclerotic heart disease of [place] coronary artery without angina pectoris: QUALIFIERS: [place] vs. transplanted heart: [place] heart Qualified Code(s): I25.10 - Atherosclerotic heart disease of [place] coronary artery without angina pectoris PLAN: The patient has a history of CAD. He will continue risk factor modification and medical management. Again at the moment his cardiac enzymes are thought to be a type II event brought out by his hypertension and his pulmonary edema. His previous noninvasive and invasive studies were reviewed. He will have a follow-up echocardiogram as noted. Depending upon his clinical course he may or may not need reevaluation in the cardiac catheterization laboratory. (5) S/P PTCA (percutaneous transluminal coronary angioplasty): PLAN: The patient has a history of PCI. His 2020 cardiac catheterization is noted. (6) S/P CABG (coronary artery bypass graft): PLAN: The patient has a history of CABG. At the time of his 2020 cardiac catheterization his 2 grafts were patent. (7) Paroxysmal atrial fibrillation with RVR: PLAN: The patient's initial cardiac rhythm on his initial ECG raise concerns of an underlying atrial dysrhythmia such as atrial fibrillation with RVR. The patient has had this rhythm in the past. He currently is in sinus rhythm. He has been treated medically in the past. At the moment he will continue medical management and follow-up. (8) History of ischemic cardiomyopathy: PLAN: The patient has a history of an underlying ischemic mediated cardiomyopathy. Again at the moment there are concerns it is hypertension brought out his flash pulmonary edema superimposed upon his underlying cardiovascular disease process. He will continue to be monitored. He will continue medical therapy. His left ventricle is going to be reassessed with a transthoracic echocardiogram to help guide additional evaluation and care. (9) HLD (hyperlipidemia): QUALIFIERS: Hyperlipidemia type: unspecified Qualified Code(s): E78.5 - Hyperlipidemia, unspecified PLAN: The patient should continue risk factor evaluation and care/medical therapy. (10) Hypertension: QUALIFIERS: Hypertension type: unspecified Qualified Code(s): I10 - Essential (primary) hypertension PLAN: The patient's blood pressure needs to be monitored. His medications may need to be adjusted to assist with better blood pressure control. Addt'l Comments Of note, the patient will need to continue noninvasive evaluation of his left sided left lower rib cage soft tissue area and his abnormal ultrasound as deemed appropriate. The patient's case was discussed and reviewed with the patient and Dr. Mishra. This note was generated using a voice recognition system and there may be incorrect words, spelling or punctuation that were not noted when reviewing the office note prior to saving. HPI Consult Data Date of Consult: 02/03/22 HPI Narrative HPI Narrative: DANI SHETH, is a 71 year old white male who presents cardiovascular consultation based upon concerns of hypertensive urgency/emergency and flash pulmonary edema superimposed upon a history of CAD, CA, PCI, CABG, hyperlipidemia, essential hypertension, diabetes mellitus, and thyroid disorder. The patient has undergone extensive noninvasive and invasive cardiovascular evaluation in the past in [place], [place], [place], as well as at [facility]. He states, similar to what he stated during previous cardiovascular consultation in October 2020, that he gets episodes of an abdominal/gastric discomfort for which he receives Mylanta to relieve his symptoms. He states sometimes his symptoms go away and he feels better. Other times his symptoms do not go away and he f eels a pressure on his lower rib cage. He notes then he can feel his blood pressure going up and then he can become somewhat short of breath and dyspneic. He states sometimes this will clear and then he will feel fine again as if nothing ever happened. He underwent evaluation for the symptoms in October 2020 at [facility]. He underwent noninvasive and invasive studies. His studies are noted below. He has been followed as an outpatient since that time to assist with cardiovascular risk factor evaluation/therapy and medical management. He states he was having similar episodes again. He felt that his breathing worsened and he felt as if he was breathing through water . He then had his family bring him to the emergency department. He was noted to be markedly hypertensive and appeared to have concerns of CHF/pulmonary edema. He was treated with IV diuretics and BiPAP type therapy. He had improvement in his overall status. He was in the ICU transiently and subsequently transferred to the PCU. At the present time he is in the PCU. He is without any O2 support. He states he feels back to his normal. He notes when these episodes are not occurring he has had no other concerning chest discomfort or difficulty breathing. He does not describe any ongoing constant peripheral pitting edema. He denies any episodes of near syncope or syncope. In October 2020 he was also evaluated for concerns of atrial fibrillation with RVR. His ECG on admission suggested an underlying undetermined rhythm with concern of an underlying irregular rhythm with a left bundle branch block pattern with intermittent ventricular ectopy potentially compatible with atrial fibrillation. His subsequent cardiac rhythm strips have demonstrated sinus rhythm. He states he is also been undergoing evaluation for a bump near his left lower rib cage. He did have an ultrasound performed on 01-18-2022 in the area of his left rib cage. Per the report it stated that he had a heterogeneous soft tissue thickening-findings were nonspecific-if clinically warranted an MRI or CT scan might provide more useful information. He states he was to be evaluated by a general surgeon this day for this finding, however, his clinical course changed and he is currently at [facility]. He was evaluated by Dr. Mishra from the pulmonology/critical care staff. Based upon Dr. Mishra's evaluation, and discussion with Dr. Mishra, there was concern that the patient had a hypertensive induced episode of flash pulmonary edema. He noted that he did have abnormal cardiac enzymes which she thought was most likely related to a type II event from the aforementioned issues. The patient did have cardiac enzymes performed. His enzyme levels were noted to be 696 with subsequent increased to 1624. Additional enzymes are pending. He has been asked to have further evaluation with a transthoracic echocardiogram to assist with his ongoing evaluation and care. It is noted that his blood pressure at the initiation of his [facility] evaluation was 199/130 and subsequently 203/126. His chest x-ray suggested findings compatible with increased pulmonary vascularity/alveolar infiltrates compatible with CHF/pulmonary edema. [facility] Medical History AAA (abdominal aortic aneurysm) Atherosclerotic heart disease of [place] coronary artery without angina pectoris Atrial fibrillation BPH (benign prostatic hyperplasia) CAD (coronary artery disease) CAD (coronary artery disease) Chronic insomnia Diabetes Diverticulosis Fibromyalgia History of ischemic cardiomyopathy History of left heart catheterization (LHC) (~10/22/20) HLD (hyperlipidemia) Hypertension Myocardial infarction PRAKASH (obstructive sleep apnea) Pulmonary nodules Restless leg syndrome Rheumatoid arthritis Thyroid disease Home Medications aspirin 81 mg tablet 81 mg PO DAILY 10/20/20 [History Last Taken Unknown] gabapentin 300 mg capsule 600 mg PO QHS nerve pain 10/20/20 [History Last Taken Unknown] losartan 100 mg tablet 150 mg PO DAILY blood pressure 10/20/20 [History Last Taken Unknown] pantoprazole 40 mg tablet,delayed release 40 mg PO DAILY reflux 10/20/20 [History Last Taken Unknown] acetaminophen 325 mg tablet (Tylenol) 650 mg PO Q4H PRN PRN Fever, pain 1-01/26 #0 tabs 10/23/20 [Rx Last Taken Unknown] metoprolol tartrate 25 mg tablet 25 mg PO BID bp 11/08/20 [History Last Taken Unknown] thyroid (pork) 60 mg tablet ([place] Thyroid) 120 mg PO DAILY thyroid 11/26/20 [History Last Taken Unknown] cholecalciferol (vitamin D3) 125 mcg (5,000 unit) tablet 125 mcg PO DAILY 03/18/21 [History Last Taken Unknown] glipizide 10 mg tablet, extended release 24 hr 10 mg PO DAILY 03/18/21 [History Last Taken Unknown] amiodarone 200 mg tablet 100 mg PO DAILY #15 tabs 07/07/21 [Rx Last Taken Unknown] cyanocobalamin (vitamin B-12) 1,000 mcg tablet (Vitamin B-12) 2,000 mcg PO DAILY 09/30/21 [History Last Taken Unknown] metformin 1,000 mg tablet 1,000 mg PO DAILY 09/30/21 [History Last Taken Unknown] polyethylene glycol 3350 17 gram/dose oral powder (Miralax) 17 g PO DAILY 09/30/21 [History Last Taken Unknown] wheat dextrin 3 gram/3.5 gram oral powder packet (Benefiber Clear Sugar Free(dextrin)) 1 packet PO DAILY 09/30/21 [History Last Taken Unknown] furosemide 40 mg tablet 40 mg PO DAILY #90 tabs 10/14/21 [Rx Last Taken Unknown] isosorbide mononitrate 30 mg tablet,extended release 24 hr 60 mg PO DAILY #180 tabs 01/06/22 [Rx Last Taken Unknown] Allergy/AdvReac Type Severity Reaction Status Date / Time Mzdazcj-TFA-QmI Reductase Allergy Severe Severe Verified 02/02/22 22:37 Inhibitor mouth sores [Bqqvejn-Tmz-Rya Reductase Inhibitor] Sulfa (Sulfonamide Allergy Unknown Unknown Verified 02/02/22 22:37 Antibiotics) levothyroxine sodium Allergy mouth Verified 02/02/22 22:37 [From Synthroid] sores,diarrhea,stomach cramps fish oil AdvReac Severe Mouth Sores Verified 02/02/22 22:37 apixaban [From Eliquis] AdvReac Intermediate blood in Verified 02/02/22 22:37 stools morphine AdvReac Nausea/Vom/ Verified 02/02/22 22:37 Diarrhea Family History Brother Diabetes CAD (coronary artery disease) Alzheimer disease Celiac disease Hypertension Heart disease Brother CAD (coronary artery disease) Surgical History History of carpal tunnel release History of trigger finger Hx of bladder cancer Hx of CABG Hx of cholecystectomy Hx of elbow surgery Hx of lipoma Hx of repair of rotator cuff Hx of shoulder replacement Hx of total knee replacement Hx of transurethral resection of prostate S/P CABG (coronary artery bypass graft) S/P PTCA (percutaneous transluminal coronary angioplasty) Social History Smoking Status: Never smoker second hand exposure: No alcohol intake: never substance use type: does not use caffeine: Yes Type: coffee Number of servings: 2 what type of physical activity do you participate in: none frequency: does not exercise seatbelt use: always ROS Constitutional Constitutional: Reports as per HPI Eyes Eyes: Reports as per HPI ENT HEENT: Reports as per HPI Cardiovascular Cardiovascular: Reports dyspnea Respiratory/Chest Respiratory/Chest: Reports dyspnea Gastrointestinal Gastrointestinal: Reports abdominal pain Genitourinary Genitourinary: Reports as per HPI Musculoskeletal Musculoskeletal: Reports as per HPI Integumentary Integumentary: Reports as per HPI Neurologic Neurologic: Reports as per HPI Psychiatric Psychiatric: Reports as per HPI Physical Exam Const alert, oriented x3, no apparent distress and healthy appearing Orientation / Consciousness: awake HEENT normocephalic, head/scalp atraumatic and hearing grossly normal bilaterally Eyes PERRL, EOMs intact bilaterally, conjunctivae normal and no scleral icterus Neck full ROM, no lymphadenopathy, supple, no JVD and no carotid bruits Chest Chest: midline sternotomy incision Cardio regular rate, regular rhythm, S1 normal heart sound and S2 normal heart sound GI normal to inspection, nondistended, normoactive bowel sounds Extremity no pedal edema Skin no rashes or lesions noted Psych mental status grossly normal Risk Stratification Risk Stratification Applicable: Yes Age >/= 65: Yes >/= 3 CAD Risk Factors (HTN, HLD, DM, family hx of CAD, or current smoker): Yes Aspirin Use in the Past 7 Days: Yes Severe Angina (>/= episodes in 24 hours): No EKG ST Changes >/= 0.5mm: No Positive Cardiac Marker: Yes ADALBERTO Risk Stratification Score: 4 ADALBERTO % Risk: 20% Risk Procedure Criteria Type of Procedure Procedure Type: Elective Elective Risks - COVID COVID Risk Discussion: The surgeon/proceduralist and patient have discussed in detail the risk of exposure to and/or potential harm posed by the COVID-19 virus with having a surgery/procedure at this time versus the risk of delaying the surgery/procedu re. It is not possible to know either the risk of delaying the surgery or procedure or chance of getting an infection with perfect accuracy, but a joint decision was made between the patient and the surgeon/proceduralist to proceed at this time with the scheduled surgery/procedure as indicated on the consent form. Objective Data Vital Signs: Vital Signs Temp Pulse Resp BP Pulse Ox O2 Del Method O2 Flow Rate 97.0 F L 61 14 141/77 H 97 Room Air 2 02/03/22 14:07 02/03/22 14:07 02/03/22 14:07 02/03/22 14:07 02/03/22 14:07 02/03/22 14:07 02/03/22 12:00 FiO2 2 02/03/22 09:00 Oxygen Flow Rate (L/min) 2 Oxygen Delivery Method Room Air Weight: 218 lb 4.122 oz Body Mass Index (BMI) 33.2 Intake & Output: Intake and Output for Last 24 Hours 02/01/22 02/02/22 02/03/22 23:59 23:59 23:59 Intake Total 600 / 600 Output Total 775 / 775 Balance -175 / -175 Lab / Micro Data Result Diagrams: 02/03/22 04:34 02/03/22 04:34 Labs: Laboratory Results - last 24 hr 02/02/22 22:35: WBC 13.3 H, RBC 5.46, Hgb 15.5, Hct 48.2, MCV 88.3, MCH 28.4, MCHC 32.2, RDW Std Deviation 45.8 H, RDW Coeff of Dexter 14.3, Plt Count 113 L, MPV 12.0, Immature Gran % (Auto) 0.700, Neut % (Auto) 38.4 L, Lymph % (Auto) 50.9 H, [place] % (Auto) 8.7, Eos % (Auto) 0.8, Baso % (Auto) 0.5, Absolute Neuts (auto) 5.1, Absolute Lymphs (auto) 6.76 H, Nucleated RBC % 0, Differential Comment SCANNED 02/02/22 22:35: Sodium 139, Potassium 4.2, Chloride 106, Carbon Dioxide 22.0, Anion Gap 11, BUN 22 H, Creatinine 1.81 H, Estim Creat Clear Calc 35.69, Est GFR (MDRD) Af Amer 48 L, Est GFR (MDRD) Non-Af 39 L, BUN/Creatinine Ratio 12.2, Glucose 205 H, Calcium 10.5 H, Troponin I High Sens 24 02/02/22 22:35: B-Natriuretic Peptide 299.8 H 02/03/22 01:39: POC Glucose 161 H 02/03/22 02:15: Troponin I High Sens Cancelled 02/03/22 02:45: Troponin I High Sens 696 H* 02/03/22 04:34: WBC 11.1 H, RBC 4.14 L, Hgb 11.8 L, Hct 36.7 L, MCV 88.6, MCH 28.5, MCHC 32.2, RDW Std Deviation 45.3 H, RDW Coeff of Dexter 14.3, Plt Count 218, MPV 10.3, Immature Gran % (Auto) 0.400, Neut % (Auto) 83.3 H, Lymph % (Auto) 9.2 L, [place] % (Auto) 6.8, Eos % (Auto) 0.1, Baso % (Auto) 0.2, Absolute Neuts (auto) 9.3 H, Absolute Lymphs (auto) 1.02, Nucleated RBC % 0 02/03/22 04:34: Sodium 141, Potassium 4.2, Chloride 106, Carbon Dioxide 27.0, Anion Gap 8, BUN 24 H, Creatinine 1.70 H, Estim Creat Clear Calc 38.00, Est GFR (MDRD) Af Amer 51 L, Est GFR (MDRD) Non-Af 42 L, BUN/Creatinine Ratio 14.1, Glucose 151 H, Calcium 9.8, TSH 0.22 L 02/03/22 08:02: POC Glucose 117 H 02/03/22 10:30: Troponin I High Sens 1624 H* 02/03/22 10:54: POC Glucose 137 H Micro: Microbiology 02/03/22 00:00 Nasal Secretion SARS-CoV-2 & FLU Antigen (Rapid) - Final ABG Data ABG results: ABG 02/02/22 22:50 Specimen Type ART Sample Site R Radial pH 7.24 L Bicarbonate Actual 19.0 L Total CO2 20 Base Excess -8 L O2 Saturation 97 O2 % 100 ABG pCO2 44.2 ABG pO2 110 H Mike Test Positive O2 Delivery Device BiPAP Clinical Comments 01/02 12 100% Cardiology Labs/Tests 02/02/22 22:35: WBC 13.3 H, RBC 5.46, Hgb 15.5, Hct 48.2, MCV 88.3, MCH 28.4, MCHC 32.2, Plt Count 113 L, MPV 12.0, Immature Gran % (Auto) 0.700, Neut % (Auto) 38.4 L, Lymph % (Auto) 50.9 H, [place] % (Auto) 8.7, Eos % (Auto) 0.8, Baso % (Auto) 0.5, Absolute Neuts (auto) 5.1, Nucleated RBC % 0 02/02/22 22:35: Sodium 139, Potassium 4.2, Chloride 106, Carbon Dioxide 22.0, Anion Gap 11, BUN 22 H, Creatinine 1.81 H, Est GFR (MDRD) Af Amer 48 L, Est GFR (MDRD) Non-Af 39 L, BUN/Creatinine Ratio 12.2, Glucose 205 H, Calcium 10.5 H 02/02/22 22:35: B-Natriuretic Peptide 299.8 H 02/02/22 22:50: pH 7.24 L, Bicarbonate Actual 19.0 L, Base Excess -8 L, O2 Saturation 97, ABG pCO2 44.2, ABG pO2 110 H, Mike Test Positive 02/03/22 04:34: WBC 11.1 H, RBC 4.14 L, Hgb 11.8 L, Hct 36.7 L, MCV 88.6, MCH 28.5, MCHC 32.2, Plt Count 218, MPV 10.3, Immature Gran % (Auto) 0.400, Neut % (Auto) 83.3 H, Lymph % (Auto) 9.2 L, [place] % (Auto) 6.8, Eos % (Auto) 0.1, Baso % (Auto) 0.2, Absolute Neuts (auto) 9.3 H, Nucleated RBC % 0 02/03/22 04:34: Sodium 141, Potassium 4.2, Chloride 106, Carbon Dioxide 27.0, Anion Gap 8, BUN 24 H, Creatinine 1.70 H, Est GFR (MDRD) Af Amer 51 L, Est GFR (MDRD) Non-Af 42 L, BUN/Creatinine Ratio 14.1, Glucose 151 H, Calcium 9.8 Rhythm: Sinus rhythm EKG: As noted above Echocardiogram: 10-21-2020 The study was technically difficult. Contrast injection was performed. ? Mild segmental systolic dysfunction (see wall motion). The estimated ejection fraction is 45 %. Mild-Moderate (1-2+) mitral valve insufficiency. Trivial tricuspid valve insufficiency. Mild focal aortic valve calcification. Mild (1+) aortic valve insufficiency. Mild (1+) pulmonic valve insufficiency. Mildly dilated aortic root. Unable to estimate RV systolic pressure due to insufficient tricuspid regur gitant envelope. Diastolic function is indeterminate. Cardiac catheterization: 10-22-2020 CONCLUSIONS Elevated Left Ventricular End Diastolic Pressure Segmented LV systolic dysfunction- Mild LVEF: by LV gram 40 % [place] Multivessel CAD PIEDRA to LAD: patent Radial Artery graft to DX1: patent Left to Left collateral flow Right to Left collateral flow Mitral Valve Insufficiency Mild - Moderate RECOMMENDATIONS Risk factor modification Medical therapy Case discussed / reviewed with Dr. Hanna from Interventional Cardiology DESCRIPTION OF? PROCEDURE The patient arrived to the procedure lab. The risks and benefits of the procedure as well as a full description of our services here and current un availability of surgical backup were fully explained to the patient and/or their significant other prior to the catheterization. The Timeout was completed, verifying the correct patient and procedure. The patient's procedural site was prepped and draped in the usual fashion. Local anesthetic was given subcutaneously to right groin region with Lidocaine 2%. Using a modified Seldinger technique, arterial access was obtained via the right femoral artery, a 4Fr sheath was inserted? Left Coronary Artery selective angiography was performed in multiple views using a 4 Fr. JL5 catheter. Right Coronary Artery selective angiography was then performed in multiple views using a 4 Fr. 3DRC catheter. Radial Artery graft to the DIAG 1 selective angiography was performed in multiple views using a 4 Fr. 3DRC catheter. Left internal mammary artery graft to the LAD selective angiography was performed in multiple views using a 4 Fr. IM catheter. Left internal mammary artery graft to the LAD selective angiography was performed in multiple views using a 4 Fr. JR4 catheter. Right internal mammary artery graft to the RCA selective angiography was performed in multiple views using a 4 Fr. JR4 catheter. Left Ventriculography was performed in MARTINEZ projection using a 4 Fr. Pigtail catheter. LV to AO pullback pressures were then recorded.The arterial sheath was pulled and manual compression applied until he mostasis is achieved. CORONARY ANGIOGRAPHY DOMINANCE:? Right Dominant LEFT HEART ASSESSMENT Left Ventricular Ejection Fraction: by LV Gram 40 % Inferior Basal Akinesis. Inferior Mid Hypokinesis Elevated Left Ventricular End Diastolic Pressure LVEDP: 33 mmHg LEFT MAIN: Mild luminal irregularities LEFT ANTERIOR DESCENDING ARTERY: OSTIAL LAD: eccentric: 90 % Stenosis PROX LAD: Previously placed stent has an instent diffuse: 50 % restenosis MID LAD: is occluded, mid to distal (small vessel): fills from PIEDRA graft flow and right to left collateral flow with no angiographically signifcant appearing disease distal to the graft attachment DIAGONAL 1: small vessel: proximal - fills from radial artery graft flow with no angiographically significant appearing disease distal to the graft attachment CIRCUMFLEX ARTERY: PROX CIRC: Previously placed stent is occluded MID CIRC: fills late, faintly, and partially from left to left and right to left collateral flow RIGHT CORONARY ARTERY: Mild luminal irregularities RT PLV: proximal: eccentric: 75 % Stenosis RT PDA: Proximal - small vessel: eccentric: 75 % Stenosis, Distal - small vessel: eccentric: 75 % Stenosis GRAFTS: ?PIEDRA graft to the Mid LAD is patent Radial graft to the 1st Diagonal is patent COLLATERAL FLOW: Collateral flow from Left to Left Collateral flow from Right to Left VALVE FINDINGS: Mitral Valve Insufficiency - Grade 1 - Grade 2 Radiography Diagnostic Testing: Radiology Impression Chest X-Ray 02/02/22 22:58 IMPRESSION: Interstitial and alveolar pulmonary infiltrates without other major interval change. Electronically Signed: Thom Bejarano DO at 23:12 EDT ,
--- NOTE | 2022-02-03 16:07 | RDU_ITS ---
Reason For Study: HTN Right Renal Artery Left Renal Artery Right renal artery ostium Left renal artery ostium 146.7/19.5 135.7/19.5 RSV/EDV. PSV/EDV. Right renal artery proximal Left renal artery proximal PSV/EDV 162.0/32.7 PSV/EDV. 168.6/23.9 . Right renal artery mid 89.7/15.1 Left renal artery mid 146.7/19.5 PSV/EDV. PSV/EDV . Right renal artery distal 78.7/17.3 Left renal artery distal 76.5/23.9 PSV/EDV. PSV/EDV. Right RAR 2.8. Left RAR 3.0. Right Renal Parenchyma Left Renal Parenchyma Upper Pole Medula 31.7/7.6 PSV/EDV. Left upper pole medulla 36.1/9.8 Right upper pole medulla EDR .24 . PSV/EDV . Right upper pole medulla R.I. .76 . Left upper pole medulla EDR .27 . [place] Cortx 19.6/7.6 PSV/EDV. Left upper pole medulla R.I. .73 . Right upper pole cortex EDR .39 . UP Cortex 20.7/8.7 PSV/EDV. Right upper pole cortex R.I. .61 . Left upper pole cortex EDR .42 . Right lower Pole medulla 25.1/9.8 Left upper pole cortex R.I. .58 . PSV/EDV . Left lower Pole medulla 21.8/7.6 Right lower pole medulla EDR .39 . PSV/EDV . Right lower pole medulla R.I. .61 . Left lower pole medulla EDR .35 . Lower Pole Cortex 20.7/6.5 PSV/EDV. Left lower pole medulla R.I. .65 . Right lower pole cortex EDR .31 . Lower Pole Cortx 22.9/7.6 PSV/EDV. Right lower pole cortex R.I. .69 . Left lower pole cortex EDR .33 . Right Renal Hilar Left lower pole cortex R.I. .67 . Right Hilar avg 41.5/13.0 PSV/EDV. Left Renal Hilar Right hilar acceleration time 50 LT Hilar avg 39.4/10.9 PSV/EDV . m/sec. Left hilar acceleration time 50 Right Renal Dimensions m/sec. Right kidney size 12.14 cm . Left Renal Dimensions Right cortical dimension 1.82 cm . Left kidney size 12.27 cm . Left cortical dimension 1.57 cm . Aorta Proximal abdominal aorta 1.99 x 2.08 cm . Proximal abdominal aorta peak systolic velocity is 56.8 cm/sec . Distal abdominal aorta peak systolic velocity is 1.45 x 1.57 cm/sec . Distal abdominal aorta 61.2 cm . Normal renal veins bilat. VL/Renal Artery Duplex Ultrasound Interpretation Summary Right renal artery patent with normal velocities and no evidence of significant stenosis Left renal artery patent with normal velocities and no evidence of significant stenosis Right renal vein patent with normal waveforms Left renal vein patent with normal waveforms Right kidney normal in size Left kidney normal in size Ordering Physician: Juve Lan Performed By: Devon Hoff RVT
[2022-02-03] MEDS: amLODIPine 5 MG Tablet PO (16:50)
[2022-02-03 17:06] LABS: Bedside Glucose 76 mg/dL (74-106)
[2022-02-03] MEDS: Acetaminophen 325 MG Tablet 650 MG PO (18:53)
[2022-02-03] MEDS: Gabapentin 600 MG Tablet PO (21:47)
[2022-02-03] MEDS: Enoxaparin 100 MG/ML Syringe SC (21:47)
[2022-02-03 23:10] LABS: Bedside Glucose 117 mg/dL (74-106)
[2022-02-04] VITALS (7 sets, daily range): BP systolic 142–163; BP diastolic 61–78; PULSE 53–71; RESP 16–20; TEMP 36.6–36.8; O2SAT 94–96
[2022-02-04] MEDS: Thyroid 60 MG Tablet 120 MG PO (05:25)
[2022-02-04 06:44] LABS: Absolute Lymphocyte Count 2.12 X10^3/uL (0.83-4.51); Absolute Neutrophil Count 4.1 X10^3/uL (2.0-7.7); Basophil# 0.02 X10^3/uL; Basophil% 0.3 % (0-1); Eosinophil# 0.06 X10^3/uL; Eosinophils% 0.9 % (0-5); Hematocrit 36.7 % (40-54); Lymphocyte # 2.12 X10^3/ul (0.83-4.51); Lymphocyte % 30.8 % (19-41); Mean Corp Hgb Conc 32.7 g/dL (32-36); Mean Corpuscular Hgb 28.2 pg (27.0-32.0); Mean Corpuscular Volume 86.2 fL (80-94); Monocyte% 8.7 % (0-10); NRBC Flagged by Analyzer 0 % (0-5); Neutrophil # 4.06 X10^3/uL (2.7-7.7); Platelet Count 221 K/mm3 (150-450); RBC Distribution Width CV 14.4 % (11.6-14.6); RBC Distribution Width SD 44.8 fl (35.1-43.9); Red Blood Count 4.26 M/mm3 (4.6-6.2); White Blood Count 6.9 K/mm3 (4.4-11.0)
[2022-02-04 06:50] LABS: Bedside Glucose 91 mg/dL (74-106)
[2022-02-04 07:17] LABS: Anion Gap 6 (5-15); BUN 24 mg/dL (7-18); BUN/Creat Ratio 15.9 RATIO (10-20); Calcium,Total 9.8 mg/dL (8.5-10.1); Chloride 104 mmol/L (98-107); Creatinine, Serum 1.51 mg/dL (0.70-1.30); EST Glomerular Filtration Rate 48 mL/min (>60); Est Glom Filt Rate - Afr Amer 59 mL/min (>60); Estimated Creatinine Clearance 42.78 ml/min; Glucose 101 mg/dL (74-106); Magnesium 1.9 mg/dL (1.6-2.6); Phosphorus 2.6 mg/dL (2.5-4.9); Potassium 3.8 mmol/L (3.5-5.1); Sodium Level 139 mmol/L (136-145); Troponin-I HS 912 pg/mL (3.0-78.0)
--- NOTE | 2022-02-04 07:55 | RAD_ITS ---
STUDY: X-RAY CHEST REASON FOR EXAM: Male, 71 years old. Chest pain/pressure TECHNIQUE: PA and lateral views of the chest. COMPARISON: 02/02/2022 FINDINGS: EKG leads overlie the chest The lungs are clear and expanded. Previous noted opacifications in both lung aguirre have cleared. There is no demonstrated pleural abnormality. Sternal cerclage wires and vascular clips are present from a prior sternotomy and coronary artery bypass graft procedure (CABG). Normal mediastinum and bj. Normal visualized pulmonary arteries. Normal visualized aortic arch and descending thoracic aorta. There are diffuse degenerative changes of the visualized thoracic spine. Replaced left glenohumeral joint free of complication There is no demonstrated abnormality of the visualized soft tissue structures of the upper abdomen. RAD/Chest PA and Lateral IMPRESSION: No acute pulmonary process, previously noted diffuse opacifications in both lung aguirre have resolved Electronically Signed: Silas Winter MD at 8:23 EDT ,
--- NOTE | 2022-02-04 08:57 | PCM.PN.INT ---
Assessment & Plan Assessment/Plan (1) Respiratory failure with hypoxia: PLAN: Plan RECOMMENDATIONS: 1. Continue antihypertensive regimen per cardiology recommendations. 2. Encourage incentive spirometer use and mobilize patient as tolerated. 3. Continue CPAP therapy with naps and nightly, per home regimen. 4. Will sign off from a pulmonary/critical care perspective. Please call with any additional questions. IMPRESSIONS: 1. Acute hypoxemic respiratory failure Resolved. I do suspect that the patient's presenting symptoms were likely secondary to flash pulmonary edema in the setting of hypertensive emergency. He did respond avidly to the use of diuretics and noninvasive positive pressure ventilatory support. His chest x-ray findings were consistent with congestive heart failure. Encourage incentive spirometer use and mobilize patient as tolerated. 2. Troponin elevation/history of ischemic cardiomyopathy status post CABG Likely secondary to demand ischemia in the setting of #1. Cardiology is currently following to assist with medical management. 3. Obesity/chronic kidney disease/diabetes mellitus/obstructive sleep apnea Complicates care, management, recovery and prognosis. Continue home medications as indicated. Continue nocturnal CPAP therapy per home regimen. This note was generated with [employer] dictation software. It may contain incorrect words, spelling, and punctuation that were not noted in checking the note before signing. Subjective Subjective The patient was seen and examined at the bedside this morning. Events from the last 24 hours have been reviewed. The patient is currently afebrile, hemodynamically stable and maintaining appropriate oxygen saturations on room air. The patient has been tolerant of nocturnal Pap therapy. Blood pressure is under better control. Creatinine has improved to 1.5. Objective Data Objective Data The patient's most recent lab work, culture data and imaging studies have all been personally reviewed. Surface echocardiogram demonstrated mild segmental systolic dysfunction with an ejection fraction of 50%. Vital Signs: Vital Signs Temp Pulse Resp BP Pulse Ox O2 Del Method O2 Flow Rate 98.2 F 71 20 H 142/61 H 95 Room Air 2 02/04/22 03:40 02/04/22 07:00 02/04/22 03:40 02/04/22 03:40 02/04/22 07:52 02/04/22 07:52 02/03/22 12:00 FiO2 2 02/03/22 09:00 Oxygen Flow Rate (L/min) 2 Oxygen Delivery Method Room Air Weight: 220 lb 10.923 oz Body Mass Index (BMI) 33.2 Intake & Output: Intake and Output for Last 24 Hours 02/02/22 02/03/22 02/04/22 23:59 23:59 23:59 Intake Total 600 / 750 180 / 180 Output Total 775 / 775 Balance -175 / -25 180 / 180 Lab / Micro Data Attestation: I reviewed the patient's lab results. Result Diagrams: 02/04/22 06:37 02/04/22 06:37 Labs: Laboratory Results - last 24 hr 02/03/22 10:30: Troponin I High Sens 1624 H* 02/03/22 10:54: POC Glucose 137 H 02/03/22 16:41: POC Glucose 76 02/03/22 21:47: POC Glucose 117 H 02/04/22 06:31: POC Glucose 91 02/04/22 06:37: WBC 6.9, RBC 4.26 L, Hgb 12.0 L, Hct 36.7 L, MCV 86.2, MCH 28.2, MCHC 32.7, RDW Std Deviation 44.8 H, RDW Coeff of Dexter 14.4, Plt Count 221, MPV 10.0, Immature Gran % (Auto) 0.300, Neut % (Auto) 59.0, Lymph % (Auto) 30.8, [place] % (Auto) 8.7, Eos % (Auto) 0.9, Baso % (Auto) 0.3, Absolute Neuts (auto) 4.1, Absolute Lymphs (auto) 2.12, Nucleated RBC % 0 02/04/22 06:37: Sodium 139, Potassium 3.8, Chloride 104, Carbon Dioxide 29.0, Anion Gap 6, BUN 24 H, Creatinine 1.51 H, Estim Creat Clear Calc 42.78, Est GFR (MDRD) Af Amer 59 L, Est GFR (MDRD) Non-Af 48 L, BUN/Creatinine Ratio 15.9, Glucose 101, Calcium 9.8, Phosphorus 2.6, Magnesium 1.9, Troponin I High Sens 912 H* Micro: Microbiology 02/03/22 00:00 Nasal Secretion SARS-CoV-2 & FLU Antigen (Rapid) - Final Radiography Diagnostic Testing: Radiology Impression Echocardiogram 02/03/22 10:19 Interpretation Summary The study was technically difficult. Contrast injection was performed. Mild segmental systolic dysfunction (see wall motion). The estimated ejection fraction is 50 %. Mild focal mitral valve calcification of the anterior leaflet. Mild (1+) mitral valve insufficiency. Trivial tricuspid valve insufficiency. Moderate focal aortic valve calcification. Mild (1+) aortic valve insufficiency. Mild (1+) pulmonic valve insufficiency. Borderline-mildly enlarged aortic root. Calcified aortic root. Unable to estimate RV systolic pressure/pulmonary artery pressure due to technically difficult study. No evidence for diastolic dysfunction. Ordering Physician: Preet Choudhury Referring Physician: ALLAN SUBRAMANIAN Performed By: Chery Amador RDCS Chest X-Ray 02/04/22 07:55 IMPRESSION: No acute pulmonary process, previously noted diffuse opacifications in both lung aguirre have resolved Electronically Signed: Silas Winter MD at 8:23 EDT , Physical Exam Const alert, oriented x3 and no apparent distress General Appearance: cooperative Nutritional Appearance: obese HEENT normocephalic and head/scalp atraumatic Eyes PERRL, EOMs intact bilaterally and conjunctivae normal Neck supple General: trachea midline Chest inspection of chest normal Resp normal respiratory effort Effort and Inspection: able to speak in complete sentences Auscultation: Negative for rales, rhonchi or wheezes Cardio regular rate and regular rhythm GI normal to inspection, nondistended, normoactive bowel sounds Extremity no clubbing, cyanosis or edema Skin no rashes or lesions noted Neuro oriented x3, CN's II-XII intact bilaterally, moves all extremities and no focal motor deficits Psych cooperative and affect normal Charges/Coding Visit Charges Inpatient E&M: 77554 Subs Hosp L2
[2022-02-04] MEDS: Metoprolol Tartrate 25 MG Tablet PO (09:02)
[2022-02-04] MEDS: Amiodarone 200 MG Tablet 100 MG PO (09:02)
[2022-02-04] MEDS: amLODIPine 10 MG Tablet PO (09:02)
[2022-02-04] MEDS: Cholecalciferol (Vit D3) 125 MCG CAPSULE (5,000 UNITS) PO (09:02)
[2022-02-04] MEDS: Isosorbide Mononitrate 60 MG Tablet PO (09:03)
[2022-02-04] MEDS: Pantoprazole Sodium 40 MG Tablet PO (09:03)
[2022-02-04] MEDS: Cyanocobalamin 500 MCG Tablet 2000 MCG PO (09:03)
[2022-02-04] MEDS: Enoxaparin 100 MG/ML Syringe SC (09:03)
[2022-02-04] MEDS: Furosemide 40 MG Tablet PO (09:03)
[2022-02-04] MEDS: Aspirin 81 MG TAB.CHEW PO (09:03)
[2022-02-04] MEDS: Insulin Glargine-YFGN 100 UNIT/ML Pen 10 UNIT SC (09:04)
[2022-02-04] MEDS: Losartan Potassium 100 MG Tablet PO (09:04)
--- NOTE | 2022-02-04 09:41 | CASEMGMT ---
Pt does not qualify for home oxygen at discharge and has been up independent in room. Pt states no concerns with going home at discharge. Cara HUSTON CM
--- NOTE | 2022-02-04 10:12 | PN.CARD_ITS ---
Subjective Subjective The patient looks and feels better today. His main concerns include his abdominal process. Objective Data Vital Signs: Vital Signs Temp Pulse Resp BP Pulse Ox O2 Del Method O2 Flow Rate 97.9 F 63 16 163/78 H 96 Room Air 2 02/04/22 09:01 02/04/22 09:02 02/04/22 09:01 02/04/22 09:01 02/04/22 09:01 02/04/22 09:01 02/03/22 12:00 FiO2 2 02/03/22 09:00 Oxygen Flow Rate (L/min) 2 Oxygen Delivery Method Room Air Weight: 220 lb 10.923 oz Body Mass Index (BMI) 33.2 Intake & Output: Intake and Output for Last 24 Hours 02/02/22 02/03/22 02/04/22 23:59 23:59 23:59 Intake Total 600 / 750 180 / 180 Output Total 775 / 775 Balance -175 / -25 180 / 180 Lab / Micro Data Result Diagrams: 02/04/22 06:37 02/04/22 06:37 Labs: Laboratory Results - last 24 hr 02/03/22 10:30: Troponin I High Sens 1624 H* 02/03/22 10:54: POC Glucose 137 H 02/03/22 16:41: POC Glucose 76 02/03/22 21:47: POC Glucose 117 H 02/04/22 06:31: POC Glucose 91 02/04/22 06:37: WBC 6.9, RBC 4.26 L, Hgb 12.0 L, Hct 36.7 L, MCV 86.2, MCH 28.2, MCHC 32.7, RDW Std Deviation 44.8 H, RDW Coeff of Dexter 14.4, Plt Count 221, MPV 10.0, Immature Gran % (Auto) 0.300, Neut % (Auto) 59.0, Lymph % (Auto) 30.8, [place] % (Auto) 8.7, Eos % (Auto) 0.9, Baso % (Auto) 0.3, Absolute Neuts (auto) 4.1, Absolute Lymphs (auto) 2.12, Nucleated RBC % 0 02/04/22 06:37: Sodium 139, Potassium 3.8, Chloride 104, Carbon Dioxide 29.0, Anion Gap 6, BUN 24 H, Creatinine 1.51 H, Estim Creat Clear Calc 42.78, Est GFR (MDRD) Af Amer 59 L, Est GFR (MDRD) Non-Af 48 L, BUN/Creatinine Ratio 15.9, Glucose 101, Calcium 9.8, Phosphorus 2.6, Magnesium 1.9, Troponin I High Sens 912 H* Cardiology Labs/Tests 02/04/22 06:37: WBC 6.9, RBC 4.26 L, Hgb 12.0 L, Hct 36.7 L, MCV 86.2, MCH 28.2, MCHC 32.7, Plt Count 221, MPV 10.0, Immature Gran % (Auto) 0.300, Neut % (Auto) 59.0, Lymph % (Auto) 30.8, [place] % (Auto) 8.7, Eos % (Auto) 0.9, Baso % (Auto) 0.3, Absolute Neuts (auto) 4.1, Nucleated RBC % 0 02/04/22 06:37: Sodium 139, Potassium 3.8, Chloride 104, Carbon Dioxide 29.0, Anion Gap 6, BUN 24 H, Creatinine 1.51 H, Est GFR (MDRD) Af Amer 59 L, Est GFR (MDRD) Non-Af 48 L, BUN/Creatinine Ratio 15.9, Glucose 101, Calcium 9.8, Phosphorus 2.6, Magnesium 1.9 Rhythm: Sinus rhythm Radiography Diagnostic Testing: Radiology Impression Echocardiogram 02/03/22 10:19 Interpretation Summary The study was technically difficult. Contrast injection was performed. Mild segmental systolic dysfunction (see wall motion). The estimated ejection fraction is 50 %. Mild focal mitral valve calcification of the anterior leaflet. Mild (1+) mitral valve insufficiency. Trivial tricuspid valve insufficiency. Moderate focal aortic valve calcification. Mild (1+) aortic valve insufficiency. Mild (1+) pulmonic valve insufficiency. Borderline-mildly enlarged aortic root. Calcified aortic root. Unable to estimate RV systolic pressure/pulmonary artery pressure due to technically difficult study. No evidence for diastolic dysfunction. Ordering Physician: Preet Choudhury Referring Physician: ALLAN SUBRAMANIAN Performed By: Chery Amador, RD Renal Artery Duplex 02/03/22 16:07 Interpretation Summary Right renal artery patent with normal velocities and no evidence of significant stenosis Left renal artery patent with normal velocities and no evidence of significant stenosis Right renal vein patent with normal waveforms Left renal vein patent with normal waveforms Right kidney normal in size Left kidney normal in size Ordering Physician: Juve Lan Performed By: Devon Hoff, RVT Chest X-Ray 02/04/22 07:55 IMPRESSION: No acute pulmonary process, previously noted diffuse opacifications in both lung aguirre have resolved Electronically Signed: Silas Winter MD at 8:23 EDT , Physical Exam Const alert, oriented x3, no apparent distress and healthy appearing Orientation / Consciousness: awake HEENT normocephalic, head/scalp atraumatic and hearing grossly normal bilaterally Eyes PERRL, EOMs intact bilaterally, conjunctivae normal and no scleral icterus Neck full ROM, no lymphadenopathy, supple, no JVD and no carotid bruits Chest Chest: midline sternotomy incision Cardio regular rate, regular rhythm, S1 normal heart sound and S2 normal heart sound GI normal to inspection, nondistended, normoactive bowel sounds Extremity no pedal edema Skin no rashes or lesions noted Psych mental status grossly normal Assessment & Plan Assessment/Plan (1) Acute respiratory failure with hypoxia: PLAN: The patient presented with concerns of acute respiratory failure. It was thought this was secondary to concerns of flash pulmonary edema brought out by a hypertensive urgency/emergency event. The patient required transient ICU care as noted. He appears to be symptomatically improved and clinically improved at this time. He will continue to be followed. (2) Flash pulmonary edema: PLAN: The patient had an episode thought compatible with flash pulmonary edema. He has had an episode similar to this in 2020 as noted. He underwent extensive noninvasive and invasive evaluation at that time with results as noted. At the moment there are concerns as to whether this was related to his hypertensive event. At the moment he appears to be improved. He will continue to be monitored. He will continue medical therapy. He did undergo a renal artery duplex study. Based upon the information provided by Dr. Rousseau, his renal artery duplex study was negative for renal artery stenosis. (3) Non-ST elevation (NSTEMI) myocardial infarction: PLAN: The patient has had abnormal cardiac enzymes. This may be a type II event brought out by his hypertension superimposed upon his cardiovascular disease process bringing out his flash pulmonary edema. At the moment his cardiac enzymes will be followed. They have decreased. His follow-up transthoracic echocardiogram was noted. At the present time he will continue medical management. 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 transplanted heart: [place] heart Qualified Code(s): I25.10 - Atherosclerotic heart disease of [place] coronary artery without angina pectoris PLAN: The patient has a history of CAD. He will continue risk factor modification and medical management. Again at the moment his cardiac enzymes are thought to be a type II event brought out by his hypertension and his pulmonary edema. His previous noninvasive and invasive studies were reviewed. At the moment it does not appear he requires further noninvasive or invasive cardiovascular studies (5) S/P PTCA (percutaneous transluminal coronary angioplasty): PLAN: The patient has a history of PCI. His 2020 cardiac catheterization is noted. (6) S/P CABG (coronary artery bypass graft): PLAN: The patient has a history of CABG. At the time of his 2020 cardiac catheterization his 2 grafts were patent. (7) Paroxysmal atrial fibrillation with RVR: PLAN: The patient's initial cardiac rhythm on his initial ECG raise concerns of an underlying atrial dysrhythmia such as atrial fibrillation with RVR. The patient has had this rhythm in the past. He currently is in sinus rhythm. He has been treated medically in the past. At the moment he will continue medical management and follow-up. If he has recurrence of his atrial dysrhythmias then he may need to be considered for long-term oral systemic anticoagulant therapy. (8) History of ischemic cardiomyopathy: PLAN: The patient has a history of an underlying ischemic mediated cardiomyopathy. Again at the moment there are concerns it is hypertension brought out his flash pulmonary edema superimposed upon his underlying cardiovascular disease process. He will continue to be monitored. His left ventricular systolic function is noted on the transthoracic echoca rdiogram. At the present time he will continue medical therapy. (9) HLD (hyperlipidemia): QUALIFIERS: Hyperlipidemia type: unspecified Qualified Code(s): E78.5 - Hyperlipidemia, unspecified PLAN: The patient should continue risk factor evaluation and care/medical therapy. (10) Hypertension: QUALIFIERS: Hypertension type: unspecified Qualified Code(s): I10 - Essential (primary) hypertension PLAN: The patient's blood pressure needs to be monitored. His medications may need to be adjusted to assist with better blood pressure control. Addt'l Comments The above was discussed with the patient, his spouse, and Dr. Sosa. This note was generated using a voice recognition system and there may be incorrect words, spelling or punctuation that were not noted when reviewing the office note prior to saving. Procedure Criteria Type of Procedure Procedure Type: Elective Elective Risks - COVID COVID Risk Discussion: The surgeon/proceduralist and patient have discussed in detail the risk of exposure to and/or potential harm posed by the COVID-19 virus with having a surgery/procedure at this time versus the risk of delaying the surgery/procedure. It is not possible to know either the risk of delaying the surgery or procedure or chance of getting an infection with perfect accuracy, b ut a joint decision was made between the patient and the surgeon/proceduralist to proceed at this time with the scheduled surgery/procedure as indicated on the consent form.
--- NOTE | 2022-02-04 11:11 | DS.PCM_ITS ---
Providers Date of Admission: 02/03/22 Date of Discharge: 02/04/22 Primary Care Physician: Dr. Allan Subramanian MD Consultations 02/03/22 01:19 Consult: Clinical Field Specialist / Pulmonary Medicine Routine Consulting Provider: Pulmonary Medicine erick [place] Reason for Consult: icu EMERGENT Consult: Yes Notified: Yes Date Notified: 02/03/22 Time Notified: 00:30 Method of Notification: Text 02/03/22 10:19 Consult: Cardiology Routine Consulting Provider: Juve Lan Reason for Consult: nstemi EMERGENT Consult: No Notified: Yes Date Notified: 02/03/22 Time Notified: 10:21 Method of Notification: Text Reason For Visit: RESPIRATORY FAILURE WITH HYPOXIA Diagnosis Discharge Diagnosis (1) Acute respiratory failure with hypoxia: Status: Acute Code(s): J96.01 - Acute respiratory failure with hypoxia (2) Flash pulmonary edema: Status: Acute Code(s): J81.0 - Acute pulmonary edema (3) Non-ST elevation (NSTEMI) myocardial infarction: Status: Acute Code(s): I21.4 - Non-ST elevation (NSTEMI) myocardial infarction (4) Atherosclerotic heart disease of [place] coronary artery without angina pectoris: Status: Chronic Code(s): I25.10 - Atherosclerotic heart disease of [place] coronary artery without angina pectoris Qualifiers: [place] vs. transplanted heart: [place] heart Qualified Code(s): I25.10 - Atherosclerotic heart disease of [place] coronary artery without angina pectoris (5) S/P PTCA (percutaneous transluminal coronary angioplasty): Status: Chronic Code(s): Z98.61 - Coronary angioplasty status (6) S/P CABG (coronary artery bypass graft): Status: Chronic Code(s): Z95.1 - Presence of aortocoronary bypass graft (7) Paroxysmal atrial fibrillation with RVR: Status: Acute Code(s): I48.0 - Paroxysmal atrial fibrillation (8) History of ischemic cardiomyopathy: Status: Chronic Code(s): Z86.79 - Personal history of other diseases of the circulatory system (9) HLD (hyperlipidemia): Status: Acute Code(s): E78.5 - Hyperlipidemia, unspecified Qualifiers: Hyperlipidemia type: unspecified Qualified Code(s): E78.5 - Hyperlipidemia, unspecified (10) Hypertension: Status: Chronic Code(s): I10 - Essential (primary) hypertension Qualifiers: Hypertension type: unspecified Qualified Code(s): I10 - Essential (primary) hypertension Medications at Discharge Home Medications aspirin 81 mg tablet 81 mg PO DAILY 10/20/20 gabapentin 300 mg capsule 600 mg PO QHS nerve pain 10/20/20 losartan 100 mg tablet 150 mg PO DAILY blood pressure 10/20/20 pantoprazole 40 mg tablet,delayed release 40 mg PO DAILY reflux 10/20/20 acetaminophen 325 mg tablet (Tylenol) 650 mg PO Q4H PRN PRN Fever, pain 1-01/26 #0 tabs 10/23/20 metoprolol tartrate 25 mg tablet 25 mg PO BID bp 11/08/20 thyroid (pork) 60 mg tablet (Caspar Thyroid) 120 mg PO DAILY thyroid 11/26/20 cholecalciferol (vitamin D3) 125 mcg (5,000 unit) tablet 125 mcg PO DAILY 03/18/21 glipizide 10 mg tablet, extended release 24 hr 10 mg PO DAILY 03/18/21 amiodarone 200 mg tablet 100 mg PO DAILY #15 tabs 07/07/21 cyanocobalamin (vitamin B-12) 1,000 mcg tablet (Vitamin B-12) 2,000 mcg PO DAILY 09/30/21 metformin 1,000 mg tablet 1,000 mg PO DAILY 09/30/21 polyethylene glycol 3350 17 gram/dose oral powder (Miralax) 17 g PO DAILY 09/30/21 wheat dextrin 3 gram/3.5 gram oral powder packet (Benefiber Clear Sugar Free(dextrin)) 1 packet PO DAILY 09/30/21 furosemide 40 mg tablet 40 mg PO DAILY #90 tabs 10/14/21 isosorbide mononitrate 30 mg tablet,extended release 24 hr 60 mg PO DAILY #180 tabs 01/06/22 amlodipine 10 mg tablet 10 mg PO DAILY #30 tabs 02/04/22 isosorbide mononitrate 60 mg tablet,extended release 24 hr 60 mg PO DAILY #0 tabs 02/04/22 Hospital Course Operations None Procedures 2-D Echocardiogram, EKG and - (Renal artery duplex) Summary of Care Provided Minutes Spent on Discharge: 37 Hospital Course: Mr. Ball is a 71-year-old white male who presented to the emergency department at [facility] on 02/03/2022 with a chief complaint of shortness of breath. Patient has known history of paroxysmal atrial fibrillation with RVR that has led to flash pulmonary edema previously along with coronary artery disease status post CABG. Upon presentation he upon presentation he reported that he often times experiences abdominal discomfort that is nondescript and diffuse in the evening which subsequently leads to his blood pressure elevation. He states he has the symptoms almost daily however he does not have blood pressure issues almost daily. He indicated he was evaluated with an EGD and colonoscopy both of which were negative previously. He has seen GI at [facility] for this. He has not followed up since the negative scopes. He feels that these attributed to him having blood pressure elevations which resulted in pulmonary edema.On presentation to the emergency department, the patient was noted to be significantly hypertensive, tachycardic and tachypneic.? Initial laboratory evaluation revealed a white blood cell count of 13,000.? Platelet count was low at 113,000.? Chemistry profile was notable for a creatinine of 1.8.? Troponin was elevated at 696 with a BNP of 300.? Plain film chest x-ray revealed stigmata of congestive heart failure.?Arterial blood gas demonstrated a pH of 7.24 with a PCO2 of 44 and PO2 of 110.? The patient was ultimately placed on BiPAP therapy and was given IV Lasix. He was subsequently admitted to the medical intensive care unit for further management. He had a similar episode back in October 2020 and was admitted here for this. Noninvasive and invasive cardiology testing were performed at that time and found not to be revealing of any new abnormalities. Cardiac enzymes were cycled and noted to be abnormal. This was felt likely to be related to his markedly elevated blood pressure. He was diuresed aggressively and an echocardiogram was performed. His echo showed an EF of 50% as well as mild mitral valve, aortic valve, pulmonic valve insufficiency and a borderline-mildly enlarged aortic root. No evidence of diastolic dysfunction was identified. Cardiology was consulted and given his recent invasive testing with cardiac catheterization within the last year no repeat evaluation was felt to be warranted adjustments in his antihypertensives were made and a renal duplex was assessed given his blood pressure elevation. Renal duplex was found to be normal with no identifiable stenosis. He was maintained on his home antihypertensives and amlodipine 10 mg a day was added. A new prescription for this was written at the time of discharge. He was discharged home in stable condition on 02/04/2022. With regards to his ongoing abdominal issues which he feels is likely causing this I recommended he follow-up with his irrigationist designer. The patient also states that he has significant anxiety and PTSD having 3 horrific nightmares nightly on a regular basis. He questions whether or not this could be psychosomatic and I do agree that it is possible. I did advise counseling and he was reluctant to utilize any psychotherapy at this time. He plans on following up with his primary care physician and then go from there. Discharge diagnoses: Acute hypoxic respiratory failure-resolved Hypertensive emergency Flash pulmonary edema NSTEMI type II CKD stage IIIb Nonspecific abdominal pain-intermittent HFpEF CAD Hypothyroidism Obesity Vitamin D deficiency Diabetic polyneuropathy DM-2 Vitamin B12 deficiency PTSD PRAKASH Weight / BMI Weight Weight: 100.1 kg Body Mass Index (BMI) 33.2 ABG / Lab / Microbiology Data Result Diagrams: 02/04/22 06:37 02/04/22 06:37 Laboratory: Laboratory Results - last 24 hr 02/03/22 10:30: Troponin I High Sens 1624 H* 02/03/22 10:54: POC Glucose 137 H 02/03/22 16:41: POC Glucose 76 02/03/22 21:47: POC Glucose 117 H 02/04/22 06:31: POC Glucose 91 02/04/22 06:37: WBC 6.9, RBC 4.26 L, Hgb 12.0 L, Hct 36.7 L, MCV 86.2, MCH 28.2, MCHC 32.7, RDW Std Deviation 44.8 H, RDW Coeff of Dexter 14.4, Plt Count 221, MPV 10.0, Immature Gran % (Auto) 0.300, Neut % (Auto) 59.0, Lymph % (Auto) 30.8, [place] % (Auto) 8.7, Eos % (Auto) 0.9, Baso % (Auto) 0.3, Absolute Neuts (auto) 4.1, Absolute Lymphs (auto) 2.12, Nucleated RBC % 0 02/04/22 06:37: Sodium 139, Potassium 3.8, Chloride 104, Carbon Dioxide 29.0, Anion Gap 6, BUN 24 H, Creatinine 1.51 H, Estim Creat Clear Calc 42.78, Est GFR (MDRD) Af Amer 59 L, Est GFR (MDRD) Non-Af 48 L, BUN/Creatinine Ratio 15.9, Glucose 101, Calcium 9.8, Phosphorus 2.6, Magnesium 1.9, Troponin I High Sens 912 H* Microbiology: Microbiology 02/03/22 00:00 Nasal Secretion SARS-CoV-2 & FLU Antigen (Rapid) - Final Radiography Diagnostic Testing: Radiology Impression Echocardiogram 02/03/22 10:19 Interpretation Summary The study was technically difficult. Contrast injection was performed. Mild segmental systolic dysfunction (see wall motion). The estimated ejection fraction is 50 %. Mild focal mitral valve calcification of the anterior leaflet. Mild (1+) mitral valve insufficiency. Trivial tricuspid valve insufficiency. Moderate focal aortic valve calcification. Mild (1+) aortic valve insufficiency. Mild (1+) pulmonic valve insufficiency. Borderline-mildly enlarged aortic root. Calcified aortic root. Unable to estimate RV systolic pressure/pulmonary artery pressure due to technically difficult study. No evidence for diastolic dysfunction. Ordering Physician: Preet Choudhury Referring Physician: ALLAN SUBRAMANIAN Performed By: Chery Amador, BREN Renal Artery Duplex 02/03/22 16:07 Interpretation Summary Right renal artery patent with normal velocities and no evidence of significant stenosis Left renal artery patent with normal velocities and no evidence of significant stenosis Right renal vein patent with normal waveforms Left renal vein patent with normal waveforms Right kidney normal in size Left kidney normal in size Ordering Physician: Juve Lan Performed By: Devon Hoff, RVT Chest X-Ray 02/04/22 07:55 IMPRESSION: No acute pulmonary process, previously noted diffuse opacifications in both lung aguirre have resolved Electronically Signed: Silas Winter MD at 8:23 EDT Reading Location ID and State: [address] [place] [address] , Service support , D/C Instructions Discharge Diet: Low fat / Low cholesterol and 1800 Calorie Control Diet Discharge Activity: Return to Normal Activity Return to work on: 02/05/22 Meaningful Use Info Meaningful Use Diagnoses (Choose all that apply): None applicable Discharge Plan Admission Admit Date/Time: 02/03/22 00:25 Primary Reason for Your Visit: Shortness of breath Attending Provider: Tory Sosa Primary Care Provider: Allan Subramanian Consulting Providers: Juve Garcia ; Juve Lan ; Renzo Jeffrey ; [place] Mishra ; Ian Coats ; Carter Richmond ; Nan Blackman DRILL OPERATOR PNEUMATIC ; Preet Choudhury Discharge Orders/Prescriptions Prescriptions: New isosorbide mononitrate 60 mg Tablet Extended Release 24 Hr 60 mg PO DAILY Qty: 0 0RF amlodipine 10 mg Tablet 10 mg PO DAILY Qty: 30 0RF Continued glipizide 10 mg tablet extended release 24hr 10 mg PO DAILY cholecalciferol (vitamin D3) 125 mcg (5,000 unit) tablet 125 mcg PO DAILY cyanocobalamin (vitamin B-12) [Vitamin B-12] 1,000 mcg tablet 2,000 mcg PO DAILY polyethylene glycol 3350 [Miralax] 17 gram/dose powder 17 g PO DAILY Benefiber Clear SF (dextrin) 3 gram/3.5 gram powder in packet 1 packet PO DAILY Rx Instructions: mix into at least 4 oz water or juice before administering metformin 1,000 mg tablet 1,000 mg PO DAILY isosorbide mononitrate 30 mg tablet extended release 24 hr 60 mg PO DAILY Qty: 180 3RF metoprolol tartrate 25 mg tablet 25 mg PO BID pantoprazole 40 mg Tablet,Delayed Release (Dr/Ec) 40 mg PO DAILY gabapentin 300 mg Capsule 600 mg PO QHS aspirin 81 mg Tablet 81 mg PO DAILY losartan 100 mg Tablet 150 mg PO DAILY acetaminophen [Tylenol] 325 mg Tablet 650 mg PO Q4H PRN PRN (Reason: Fever, pain 1-01/26) Qty: 0 0RF thyroid (pork) [Caspar Thyroid] 60 mg tablet 120 mg PO DAILY amiodarone 200 mg tablet 100 mg PO DAILY Qty: 15 0RF furosemide 40 mg tablet 40 mg PO DAILY Qty: 90 3RF Referrals / Follow Up: Allan Subramanian MD [Primary Care Provider] - In 1 Week uJve Lan MD [Med Staff - Active Staff] - Within 1 Month Disposition Disposition (needs filled in before D/C Order can be placed): Home, Self Care Charges/Coding Visit Charges Inpatient E&M: 61319 Disch Hosp
== END 2022-02-04 12:14 | disposition home or self-care (01) | DRG 280 ==
LOC: ED 23:49 → ICU 02-03 00:35 → PCU 02-03 14:00
PROVIDERS: Internal Medicine; Admitting Provider Family Medicine; Emergency Provider Emergency Medicine; PCP Family Medicine; Visit Provider Internal Medicine
DX: I13.0 Hypertensive heart and chronic kidney disease with heart failure and stage 1 through stage 4 chronic kidney disease, or unspecified chronic kidney disease (principal); I21.A1 Myocardial infarction type 2; J96.01 Acute respiratory failure with hypoxia; I50.23 Acute on chronic systolic (congestive) heart failure; J81.0 Acute pulmonary edema; I16.1 Hypertensive emergency; I11.0 Hypertensive heart disease with heart failure; E11.9 Type 2 diabetes mellitus without complications; I48.0 Paroxysmal atrial fibrillation; E11.42 Type 2 diabetes mellitus with diabetic polyneuropathy; E11.22 Type 2 diabetes mellitus with diabetic chronic kidney disease; N18.32 Chronic kidney disease, stage 3b; D69.6 Thrombocytopenia, unspecified; I25.10 Atherosclerotic heart disease of native coronary artery without angina pectoris; I25.5 Ischemic cardiomyopathy; E07.9 Disorder of thyroid, unspecified; G47.33 Obstructive sleep apnea (adult) (pediatric); E78.5 Hyperlipidemia, unspecified; I44.7 Left bundle-branch block, unspecified; E55.9 Vitamin D deficiency, unspecified; E53.8 Deficiency of other specified B group vitamins; M79.7 Fibromyalgia; E03.9 Hypothyroidism, unspecified; I35.1 Nonrheumatic aortic (valve) insufficiency; N40.0 Benign prostatic hyperplasia without lower urinary tract symptoms; Z79.01 Long term (current) use of anticoagulants; Z79.84 Long term (current) use of oral hypoglycemic drugs; Z68.33 Body mass index [BMI] 33.0-33.9, adult; Z79.82 Long term (current) use of aspirin; E66.9 Obesity, unspecified; Z98.61 Coronary angioplasty status; F43.10 Post-traumatic stress disorder, unspecified; Z95.1 Presence of aortocoronary bypass graft; Z86.79 Personal history of other diseases of the circulatory system
CPT/HCPCS: 36415; 36600; 71045; 71046; 80048; 82803; 82962; 83735; 83880; 84100; 84443; 84484; 85025; 87428; 93005; 93306; 93975; 94002; 94003; 97802; 99285; Q9957; A4216; C8929; J1940

== ENCOUNTER → 2022-03-11 | Outpatient (CLI) | payer MEDICARE, OTHER, SELFPAY ==
[2022-03-11 16:03] LABS: Absolute Lymphocyte Count 1.44 X10^3/uL (0.83-4.51); Absolute Neutrophil Count 3.2 X10^3/uL (2.0-7.7); Basophil# 0.02 X10^3/uL; Basophil% 0.4 % (0-1); Eosinophil# 0.07 X10^3/uL; Eosinophils% 1.3 % (0-5); Hematocrit 36.6 % (40-54); Hemoglobin 12.2 g/dL (13.0-16.5); Lymphocyte # 1.44 X10^3/ul (0.83-4.51); Lymphocyte % 27.7 % (19-41); Mean Corp Hgb Conc 33.3 g/dL (32-36); Mean Corpuscular Hgb 29.3 pg (27.0-32.0); Mean Corpuscular Volume 87.8 fL (80-94); Mean Platelet Vol. 10.5 fl (6.2-12.0); Monocyte# 0.48 X10^3/uL; Monocyte% 9.2 % (0-10); NRBC Flagged by Analyzer 0 % (0-5); Neutrophil # 3.18 X10^3/uL (2.7-7.7); Neutrophil % 61.2 % (47-70); Platelet Count 278 K/mm3 (150-450); RBC Distribution Width CV 14.3 % (11.6-14.6); RBC Distribution Width SD 45.8 fl (35.1-43.9); Red Blood Count 4.17 M/mm3 (4.6-6.2); White Blood Count 5.2 K/mm3 (4.4-11.0)
[2022-03-11 17:02] LABS: BNP,B-Type NATRIURETIC PEPTIDE 173.1 pg/mL (0-100)
[2022-03-11 17:12] LABS: Anion Gap 7 (5-15); BUN 27 mg/dL (7-18); BUN/Creat Ratio 16.8 RATIO (10-20); Calcium,Total 9.1 mg/dL (8.5-10.1); Chloride 101 mmol/L (98-107); Creatinine, Serum 1.61 mg/dL (0.70-1.30); EST Glomerular Filtration Rate 45 mL/min (>60); Est Glom Filt Rate - Afr Amer 54 mL/min (>60); Glucose 228 mg/dL (74-106); Potassium 3.7 mmol/L (3.5-5.1); Sodium Level 136 mmol/L (136-145)
== END | disposition home or self-care (01) ==
LOC: LAB 14:25
PROVIDERS: PCP Family Medicine; Visit Provider Nurse Practitioner Gerontology
DX: R53.83 Other fatigue (principal); R06.02 Shortness of breath
CPT/HCPCS: 36415; 80048; 83880; 84443; 85025

== ENCOUNTER → 2022-03-18 | Outpatient (CLI) | payer MEDICARE, OTHER, SELFPAY ==
[2022-03-18 08:35] LABS: Anion Gap 7 (5-15); BUN 18 mg/dL (7-18); BUN/Creat Ratio 11.2 RATIO (10-20); Calcium,Total 9.8 mg/dL (8.5-10.1); Chloride 103 mmol/L (98-107); EST Glomerular Filtration Rate 45 mL/min (>60); Est Glom Filt Rate - Afr Amer 55 mL/min (>60); Glucose 122 mg/dL (74-106); Potassium 3.9 mmol/L (3.5-5.1); Sodium Level 139 mmol/L (136-145)
== END | disposition home or self-care (01) ==
LOC: LAB 07:32
PROVIDERS: PCP Family Medicine; Referring Provider Nurse Practitioner Gerontology; Visit Provider Nurse Practitioner Gerontology
DX: R06.00 Dyspnea, unspecified (principal)
CPT/HCPCS: 36415; 80048

== ENCOUNTER → 2022-04-28 | Outpatient (CLI) | payer MEDICARE, OTHER, SELFPAY ==
--- NOTE | 2022-04-28 07:25 | MRI_ITS ---
STUDY: MRI ABDOMEN WITH AND WITHOUT CONTRAST REASON FOR EXAM: Male, 72 years old. Lower chest/upper abdominal mass. Area of swelling in the left anterior chest wall on ultrasound. TECHNIQUE: Standardized fat and water weighted pulse sequences were obtained in all 3 orthogonal planes post contrast administration. IV 20 Clariscan was administered for the contrast portion of the examination. A marker was placed over the area of concern. COMPARISON: Chest, February 04, 2022. CT of the abdomen and pelvis, January 06, 2021. Ultrasound of the chest wall, January 17, 2022 FINDINGS: The visualized lung bases are unremarkable. The visualized portions of the heart are within normal limits. There is evidence of median sternotomy. Marker coincides with the costal cartilages of the lower ribs. There is no visualized chest wall mass or soft tissue abnormality in this region. Normal visualized liver. The gallbladder is not included. Normal visualized spleen. The pancreas is not included. Normal bilateral adrenal glands. Normal right kidney. Normal left kidney. Normal visualized visualized stomach. Small bowel is occluded. Normal visualized colon. There is tortuosity of the lower thoracic aorta. No aneurysm. Normal inferior vena cava. Normal retroperitoneum. Normal abdominal wall. Normal osseous structures. MRI/MRI Abd WITH and W/O Contrast IMPRESSION: 1. No evidence of chest wall mass or soft tissue abnormalities in the area of concern. 2. Grossly normal lower chest and upper abdomen. Electronically Signed: Thom Bejarano DO at 17:22 [facility] Reading Location ID and State: [address] Tel [phone], Service support ,
[2022-04-28 08:06] LABS: CREATININE FINGERSTICK 1.1 mg/dL (0.70-1.30); EGFR FINGERSTICK > 60.0000 mL/min (>60)
== END | disposition home or self-care (01) ==
LOC: MRI 07:14
PROVIDERS: PCP Family Medicine; Visit Provider Surgery
DX: Z01.812 Encounter for preprocedural laboratory examination (principal); R19.00 Intra-abdominal and pelvic swelling, mass and lump, unspecified site
CPT/HCPCS: 74183; A9575

== ENCOUNTER → 2022-04-29 | Outpatient (CLI) | payer MEDICARE, OTHER, SELFPAY ==
[2022-04-29 12:19] LABS: Absolute Neutrophil Count 2.8 X10^3/uL (2.0-7.7); Basophil# 0.03 X10^3/uL; Basophil% 0.6 % (0-1); Eosinophil# 0.05 X10^3/uL; Erythrocyte Sedimentation Rate 26 mm/hr (0-20); Hematocrit 36.3 % (40-54); Hemoglobin 12.1 g/dL (13.0-16.5); Lymphocyte % 33.3 % (19-41); Mean Corp Hgb Conc 33.3 g/dL (32-36); Mean Corpuscular Hgb 29.2 pg (27.0-32.0); Mean Corpuscular Volume 87.5 fL (80-94); Mean Platelet Vol. 9.9 fl (6.2-12.0); Monocyte# 0.56 X10^3/uL; NRBC Flagged by Analyzer 0 % (0-5); Neutrophil # 2.77 X10^3/uL (2.7-7.7); Neutrophil % 54.1 % (47-70); Platelet Count 254 K/mm3 (150-450); RBC Distribution Width CV 14.6 % (11.6-14.6); RBC Distribution Width SD 46.8 fl (35.1-43.9); Red Blood Count 4.15 M/mm3 (4.6-6.2); White Blood Count 5.1 K/mm3 (4.4-11.0)
[2022-04-29 13:14] LABS: ALB/GLOB Ratio 1.1 RATIO (0.9-2.4); AST(SGOT) 22 U/L (15-37); Alanine Aminotransfer ALT/SGPT 26 U/L (16-61); Albumin, Serum 4.1 g/dL (3.2-5.0); Alkaline Phosphatase 71 U/L (45-117); Amylase 67 U/L (25-115); Anion Gap 7 (5-15); BUN 30 mg/dL (7-18); BUN/Creat Ratio 16.7 RATIO (10-20); CRP < 2.90 mg/L (0.0-3.0); Calcium,Total 9.8 mg/dL (8.5-10.1); Chloride 101 mmol/L (98-107); EST Glomerular Filtration Rate 40 mL/min (>60); Est Glom Filt Rate - Afr Amer 48 mL/min (>60); Ferritin 25 ng/mL (26-388); Globulin 3.9 g/dL (2.2-4.2); Glucose 77 mg/dL (74-106); Iron 68 ug/dL (65-175); Iron Binding Capacity,Total 410 ug/dL (250-450); LDH 207 U/L (87-241); Lipase 118 U/L (73-393); PERCENT IRON SATURATION 16.6 % (15.0-55.0); Sodium Level 137 mmol/L (136-145)
[2022-04-30 14:09] LABS: Anti-Centromere B Ab <0.2 AI (0.0-0.9); Anti-Chromatin <0.2 AI (0.0-0.9); Anti-Jo <0.2 AI (0.0-0.9); Anti-Scleroderma-70 AB <0.2 AI (0.0-0.9); RNP Ab <0.2 AI (0.0-0.9); SJOGREN'S Anti-SS-A test 0.2 AI (0.0-0.9); SJOGREN'S Anti-SS-B test < 0.2 AI (0.0-0.9); Smith Ab <0.2 AI (0.0-0.9)
[2022-04-30 15:08] LABS: Endomysial Antibody IgA Negative (Negative)
[2022-04-30 15:16] LABS: Anti-dsDNA Ab 1 IU/mL (0-9)
[2022-04-30 17:49] LABS: Immunoglobulin A 350 mg/dL (61-437); t-Transglutaminase IgA <2 U/mL (0-3)
[2022-05-03 15:07] LABS: Alpha-1-Globulins 0.2 g/dL (0.0-0.4); Cytoplasmic Ab (C-ANCA) <1:20 titer (Neg:<1:20); Gamma Globulin 0.9 g/dL (0.4-1.8); Immunoglobulin A 338 mg/dL (61-437); Immunoglobulin E 121 IU/mL (6-495); Immunoglobulin G 857 mg/dL (603-1613); Immunoglobulin M 56 mg/dL (15-143); PROEL- TOTAL PROTEIN 7.5 g/dL (6.0-8.5)
[2022-05-05 11:38] LABS: Gastrin, Serum 548 pg/mL (0-115); Perinuclear Ab (P-ANCA) <1:20 titer (Neg:<1:20)
== END | disposition home or self-care (01) ==
PROVIDERS: PCP Family Medicine; Referring Provider Nurse Practitioner Adult Health; Visit Provider Nurse Practitioner Adult Health
DX: R10.13 Epigastric pain (principal); I48.0 Paroxysmal atrial fibrillation; R68.81 Early satiety; D64.9 Anemia, unspecified; R53.83 Other fatigue
CPT/HCPCS: 36415; 80053; 82150; 82728; 82784; 82785; 82941; 83516; 83540; 83550; 83615; 83690; 84165; 85025; 85652; 86140; 86225; 86235; 86255; 86256; 86334

== ENCOUNTER → 2022-05-01 | Outpatient (CLI) | payer MEDICARE, OTHER, SELFPAY ==
[2022-05-05 14:22] LABS: Pancreatic Elastase, Fecal 145 (>200)
[2022-05-07 19:44] LABS: Calprotectin, Stool 162 ug/g (0-120); Fats, Neutral Normal (.); Fats, Total Increased (.)
== END | disposition home or self-care (01) ==
LOC: LABSPEC 08:13
PROVIDERS: PCP Family Medicine; Referring Provider Nurse Practitioner Adult Health; Visit Provider Nurse Practitioner Adult Health
DX: D64.9 Anemia, unspecified (principal); K59.00 Constipation, unspecified; R10.13 Epigastric pain; K58.9 Irritable bowel syndrome, unspecified
CPT/HCPCS: 82653; 82705; 83630; 83993

== ENCOUNTER → 2022-05-08 | Outpatient (CLI) | payer MEDICARE, OTHER, SELFPAY ==
--- NOTE | 2022-05-08 11:33 | NM_ITS ---
CLINICAL: 72-year-old male with history of early satiety. SEMI-SOLID PHASE 99m Tc SULFUR COLLOID GASTRIC EMPTYING STUDY COMPARISON: None available FINDINGS: The patient was administered 1.0 mCi of 99m Tc sulfur colloid mixed with oatmeal and consumed per os. Image acquisitions in the anterior-posterior projections were obtained for 60 minutes. There is prompt visualization of the stomach. There is no gastroesophageal reflux identified. The T ? raw data emptying was calculated to be 27.52 minutes, (Normal: 12-56 minutes). NM/Gastric Emptying Study IMPRESSION: 1. NORMAL 99m Tc sulfur colloid semi-solid phase (oatmeal) gastric emptying imaging examination. A. There is normal and preserved semi-solid phase gastric emptying compared to normal controls. (Sheila et al, J Nucl Med Tech 38: 186, 2010). Electronically Signed: Eze Levy, at 9:59 EST ,
== END | disposition home or self-care (01) ==
LOC: NM 11:31
PROVIDERS: PCP Family Medicine; Visit Provider Nurse Practitioner Adult Health
DX: R68.81 Early satiety (principal)
CPT/HCPCS: 78264; A9541

== ENCOUNTER 2022-07-01 08:00 | Day surgery (SDC) | payer MEDICARE, OTHER, SELFPAY ==
[2022-07-01] VITALS (8 sets, daily range): BP systolic 90–150; BP diastolic 59–69; PULSE 54–60; RESP 16–18; TEMP 36.2–36.9; O2SAT 93–100; BMI 32.8
[2022-07-01] MEDS: Lactated Ringers 1,000 ML 15 ML IV (08:29)
--- NOTE | 2022-07-01 08:58 | PCM.HP.BLA ---
History and Physical Date of Admission: 07/01/22 DANI SHETH, is a 72 M who presents to the office today to establish with GI for I get sick when I eat. Accompanied by his . They report he has symptoms in the evening (but not every evening), after eating, when he is relaxing or sitting on the toilet, he gets nausea, cold sweat, cough, stomach burning, tenesmus. No vomiting. He has early satiety. No particular foods are triggers. He takes on pantoprazole 40 mg daily for GERD but this doesn't help these symptoms. He gets some relief with mylanta, gas-x and tylenol. Denies heartburn, acid reflux, regurgitation. The epigastric burning sensation doesn't radiate through to the back or elsewhere. feels that the burning stomach and cough cause his BP to rise and then trigger CHF flare. These episodes have occurred on a regular basis for about 1.5 yrs but twice were much more severe, leading to ED visit and admissions to [facility]--those were in 10/2020 and 01/2022; I reviewed those records--he had markedly elevated BP, pulmonary edema, acute respiratory failure with hypoxia. He reports constipation, has tenesmus, strains to have BM, takes multiple treatment for constipation--miralax and benefiber daily, also 4 prunes daily, occas prune juice or OJ. He doesn't have formed stools, seems like his stools are always loose. No melena or hematochezia. His brother had celiac disease. Weight is stable. He was exposed to Agent [place] in [place]. Dr Patel has ordered MRI of the abd 12/2021 labs at [facility]: hgb a1c 6.5, creat 1.45, normal ast/alt/alk phos/bili 06/2021 EGD and colonoscopy by general surgeon at [facility]: EGD: scattered erythema in stomach, nonsevere reflux esophagitis; bxs: reactive gastropathy, focal changes of reflux, negative Zhang's, negative H pylori; colonoscopy: diverticulosis, no specimens collected PMH includes: DM2, hyperlipidemia, neuropathy, ischemic cardiomyopathy, CAD, RA, atrial fibrillation, obesity, hx RI, RLS, sleep apnea, fibromyalgia, hypothyroidism, Agent [place] exposure, bladder cancer hx PSH includes cholecystectomy, CABG, TURP, TURBT ROS Const Constitutional: Positive for fatigue ENT ENT: No difficulty swallowing Cardio Cardiology: Positive for leg pain with exertion Gastro GI: Positive for abdominal pain, bloating, change in bowel habits, constipation, heartburn, excessive flatus and nausea/dyspepsia; No belching, change in stool character, coffee ground emesis, cramping, diarrhea, difficulty swallowing, feeling full early, incontinent of stools, Vomiting blood/hematemesis, Blood in stool, loose stools, Black,tarry stools, pain with swallowing, vomiting or other Musc Musculoskeletal: Positive for joint pain, back pain, muscle cramps, muscle weakness, stiffness, Arthritis, restless legs, leg pain at night and leg pain with exertion Skin Skin: No yellowing of the eye or itchy eyes Neuro Neurology: Positive for restless legs Psych Psychiatric: No anxiety and No depression Endo Endocrine: Positive for fatigue Aller/Imm Allergy/Immunologic: No itchy eyes Gopal/Lymp Hematologic/Lymphatic: No easy bleeding or easy bruising Exam Const General: cooperative and no acute distress Nutritional Appearance: obese Orientation: alert, awake and oriented x3 HENMT Head: normal to inspection Eyes Sclera: sclerae normal Resp Effort & Inspection: normal respiratory effort GI Palpation: soft, no hepatosplenomegaly, no masses and tender in the epigastrum Skin General: jaundice Psych Mood: congruent mood Quality Reporting Tobacco Screening ([facility] 138) Smoking Status: Never smoker Assessment and Plan Assessment and Plan (1) Epigastric pain: ?Status:?Chronic ?Plan: 72 yr old male with episodes of epigastric pain, nausea, cough, tenesmus that occur in the evenings, can be when he is relaxing after dinner or on the toilet. He reports constipation, treats with OTC, then typically has loose stools. Twice in 2021 he was admitted after having abdominal discomfort and nausea--admitting diagnoses were?markedly elevated BP, pulmonary edema, CHF, acute respiratory failure with hypoxia. No relief of his symptoms with PPI therapy. No cause for his symptoms found last yr with EGD and colonoscopy. His comorbidities include DM2, RA, Agent [place] exposure. DDx includes functional dyspepsia, GERD, bile acid reflux, gastroparesis, PUD, EPI. He also reports constipation, but has chronic loose stools, consider overflow diarrhea. Biochemical eval to include stool tests for inflammation, exocrine pancreatic insufficiency; blood tests for celiac, IBD, autoimmune, pancreas. Will check labs because of low hgb in 12 range. Gastric emptying study to eval for gastroparesis EGD and colonoscopy with office f/u 2 wks later Consider eval for pheochromocytoma (2) Early satiety: ?Status:?Chronic ?Plan: Gastric emptying study to evaluate for gastroparesis (3) Anemia: ?Status:?Acute ?Plan: Labs today Endoscopic eval (4) Constipation: ?Status:?Acute ?Plan: see above ? ? ? Orders: Orders Gastric Emptying Study Today R68.81 - Early satiety ? Comprehensive Metabolic Profil Today D64.9 - Anemia, unspecified, R10.13 - Epigastric pain, R68.81 - Early satiety ? CRP Today D64.9 - Anemia, unspecified, R10.13 - Epigastric pain, R68.81 - Early satiety ? CBC W/Diff, Automated Today D64.9 - Anemia, unspecified, R10.13 - Epigastric pain, R68.81 - Early satiety ? Erythrocyte Sed Rate Today D64.9 - Anemia, unspecified, R10.13 - Epigastric pain, R68.81 - Early satiety ? Celiac Disease Profile Today D64.9 - Anemia, unspecified, R10.13 - Epigastric pain, R68.81 - Early satiety ? Amylase Today D64.9 - Anemia, unspecified, R10.13 - Epigastric pain, R68.81 - Early satiety ? Ferritin Today D64.9 - Anemia, unspecified, I48.0 - Paroxysmal atrial fibrillation, R10.13 - Epigastric pain, R68.81 - Early satiety ? Iron+Iron Binding Capacity Today D64.9 - Anemia, unspecified, R10.13 - Epigastric pain, R68.81 - Early satiety ? LDH Today D64.9 - Anemia, unspecified, R10.13 - Epigastric pain, R68.81 - Early satiety ? Lipase Today D64.9 - Anemia, unspecified, R10.13 - Epigastric pain, R68.81 - Early satiety ? BRADEN Comprehensive Panel Today D64.9 - Anemia, unspecified, R10.13 - Epigastric pain, R68.81 - Early satiety ? ANCA Today D64.9 - Anemia, unspecified, R10.13 - Epigastric pain, R68.81 - Early satiety ? Immunoglobulins G/A/M/E Today D64.9 - Anemia, unspecified, R10.13 - Epigastric pain, R68.81 - Early satiety ? Gastrin, Serum Today D64.9 - Anemia, unspecified, R10.13 - Epigastric pain, R68.81 - Early satiety ? JERALD + Protein Elect, Serum Today D64.9 - Anemia, unspecified, R10.13 - Epigastric pain, R68.81 - Early satiety ? Miscellaneous Lab Procedure Today D64.9 - Anemia, unspecified, R10.13 - Epigastric pain, R53.83 - Other fatigue, R68.81 - Early satiety ? Calprotectin, Stool Today D64.9 - Anemia, unspecified, K59.00 - Constipation, unspecified ? Stool Lactoferrin/WBC Today D64.9 - Anemia, unspecified, K58.9 - Irritable bowel syndrome without diarrhea, K59.00 - Constipation, unspecified ? Fecal Fat, Qualitative Today K59.00 - Constipation, unspecified, R10.13 - Epigastric pain ? Pancreatic Elastase, Fecal Today K59.00 - Constipation, unspecified, R10.13 - Epigastric pain I have examined the patient and the H&P has been reviewed. There are no clinical changes since date of exam.
[2022-07-01 09:00] LABS: Bedside Glucose 121 mg/dL (74-106)
--- NOTE | 2022-07-01 09:15 | IMM_PTH ---
PATIENT: DANI SHETH LOC: EN U#:[id number] AGE/SX: 72/M ROOM: RE07/01/[address]: Dr. Yoshi Reyes DO : 1950 BED: DIS: 07/01/2022 SPEC #: [id number] RECD: 07/01/22 14:10 STATUS: BIB REAnthony #: [id number] CLAUDIA: 07/01/22 09:[address]: Yoshi Reyes DEPT: IMMUNOHISTOCHEMISTRY RECD BY: Juju Diamond ENTERED: 07/01/22 14:10 SP TYPE: IMMUNO OTHR DR: Dr. Elver Rosario MD Tissues: B - Stomach, NOS Procedures: H Pylori (initial) PHYSICIAN & INSTITUTION [place] [id number] SPECIMEN INFORMATION: Tissue Source: Antrum biopsy Clinical Info: Nausea, epigastric pain, constipation, diarrhea Specimen Number: [id number] CPT code: 64821 METHODOLOGY: Deparaffinized sections of prefer/formalin-fixed tissue or PAP/DQ stained slides are incubated with monoclonal/polyclonal antibodies/oligonucleotide probes. Localization is made via biotin free immunoperoxidase method. Appropriate controls are performed and reacted as expected. Results on target cell population are indicated in the following table: RESULTS: ANTIBODY / CLONE RESULT Block B H Pylori (polyclonal) negative These tests were developed and their performance characteristics determined by [facility]. They may not have been cleared or approved by the U.S. Food and Drug Administration. The FDA has determined that such clearance or approval is not necessary. The above immunohistochemical/dualISH markers are ordered and reviewed by the Pathologist. INTERPRETATION: B. Antrum, biopsy: Negative for Helicobacter pylori organisms. SJ:yanira 07/02/2022
--- NOTE | 2022-07-01 09:15 | COLBX_PTH ---
PATIENT: DANI SHETH LOC: EN U#:[id number] AGE/SX: 72/M ROOM: RE07/01/[address]: Dr. Yoshi Reyes DO : 1950 BED: DIS: 07/01/2022 SPEC #: [id number] RECD: 07/01/22 10:28 STATUS: BIB JOSIE #: [id number] CLAUDIA: 07/01/22 09:[address]: Yoshi Reyes DEPT: SURGICAL PATHOLOGY RECD BY: Eloisa Portillo ENTERED: 07/01/22 11:03 SP TYPE: COLON BX OTHR DR: Dr. Elver Rosario MD Tissues: A - Gastric mucous membrane B - Gastric mucous membrane C - Duodenum, NOS D - Ileum, NOS E - COLON BIOPSY F - Sigmoid colon biopsy Procedures: Special Stain Group II Surgery Specimen Level IV Alcian Blue/PAS (control) HEADER OPERATION: Colonoscopy, EGD (MAC) and biopsies PRE-OP DIAGNOSIS: Nausea, epigastric pain, constipation, diarrhea TISSUE SUBMITTED: A ? Gastric body biopsy, B ? Antrum biopsy, C ? Duodenum biopsy, D ? Terminal ileum biopsies, E ? Random colonic biopsies, F ? Sigmoid colon polyp MICROSCOPIC DIAGNOSIS A. Gastric body, biopsy: Moderate gastritis. See microscopic description and comment. B. Antrum, biopsy: Mild gastritis. See microscopic description and comment. C. Duodenum, biopsy: Fragments of duodenal mucosa, no pathologic diagnosis. D. Terminal ileum, biopsy: Fragments of small intestinal mucosa, no pathologic diagnosis. E. Colon, random biopsy: Fragments of colonic mucosa, no pathologic diagnosis. F. Sigmoid colon, biopsy: Tubular adenoma. SJ:yanira 07/02/2022 COMMENT A. Alcian blue/PAS stain with matched control is used in the evaluation of the specimen. B. The results of immunohistochemistry for Helicobacter pylori will be reported separately ([id number]). MICROSCOPIC DESCRIPTION Slides are reviewed. A. The specimen shows fragments of gastric mucosa with chronic inflammatory cell infiltrates in the lamina propria consisting of lymphocytes and plasma cells, consistent with moderate chronic gastritis. Focal intestinal metaplasia (goblet cell metaplasia) is noted. B. The specimen shows fragments of gastric mucosa with chronic inflammatory cell infiltrates in the lamina propria consisting of lymphocytes and plasma cells, consistent with mild chronic gastritis. GROSS DESCRIPTION A - Received in fixative is one container labeled with the patient's name and designated gastric body biopsy. The specimen consists of multiple irregular fragments of light castillo soft tissue that in aggregate measure 0.8 x 0.3 x 0.1 cm. The specimen is totally submitted in one cassette. B - Received in fixative is one container labeled with the patient's name and designated antrum biopsy. The specimen consists of two irregular fragments of light castillo soft tissue that in aggregate measure 1.0 x 0.5 x 0.1 cm. The specimen is totally submitted in one cassette. C - Received in fixative is one container labeled with the patient's name and designated duodenum biopsy. The specimen consists of multiple irregular fragments of light castillo soft tissue that in aggregate measure 1.0 x 0.4 x 0.1 cm. The specimen is totally submitted in one cassette. D - Received in fixative is one container labeled with the patient's name and designated terminal ileum biopsy. The specimen consists of two irregular fragments of light castillo soft tissue that in aggregate measure 0.6 x 0.3 x 0.1 cm. The specimen is totally submitted in one cassette. E - Received in fixative is one container labeled with the patient's name and designated random colon biopsy. The specimen consists of multiple irregular fragments of light castillo soft tissue that in aggregate measure 1.0 x 0.5 x 0.1 cm. The specimen is totally submitted in one cassette. F - Received in fixative is one container labeled with the patient's name and designated sigmoid colon polyp. The specimen consists of two irregular fragments of light castillo soft tissue that in aggregate measure 0.6 x 0.3 x 0.1 cm. The specimen is totally submitted in one cassette. / SJ:yanira 07/01/2022 TC:1 [facility]: [id number] [phone], [phone]
--- NOTE | 2022-07-01 10:11 | OP.EGD_ITS ---
Patient Name: Salome Ball Procedure Date: 07/01/2022 9:39 AM Date of : 1950 Age: 72 Procedure: Upper GI endoscopy Indications: Epigastric abdominal pain, Functional Dyspepsia Providers: Yoshi Reyes DO Medicines: Monitored Anesthesia Care Patient Profile: This is a 72 year old male. Refer to note in patient chart for documentation of history and physical. Patient has symptoms of acute abdominal cramping, chronic abdominal distention, chronic dyspepsia and chronic nausea. Complications: No immediate complications. Procedure: Pre-Anesthesia Assessment: - Prior to the procedure, a History and Physical was performed, and patient medications and allergies were reviewed. The risks and benefits of the procedure and the sedation options and risks were discussed with the patient. All questions were answered and informed consent was obtained. Patient identification and proposed procedure were verified by the physician in the pre-procedure area. Mental Status Examination: alert and oriented. Airway Examination: normal oropharyngeal airway and neck mobility. Respiratory Examination: clear to auscultation. CV Examination: normal. Prophylactic Antibiotics: The patient does not require prophylactic antibiotics. Prior Anticoagulants: The patient has taken no previous anticoagulant or antiplatelet agents. After reviewing the risks and benefits, the patient was deemed in satisfactory condition to undergo the procedure. The anesthesia plan was to use monitored anesthesia care (MAC). Immediately prior to administration of medications, the patient was re-assessed for adequacy to receive sedatives. The heart rate, respiratory rate, oxygen saturations, blood pressure, adequacy of pulmonary ventilation, and response to care were monitored throughout the procedure. The physical status of the patient was re-assessed after the procedure. After obtaining informed consent, the endoscope was passed under direct vision. Throughout the procedure, the patient's blood pressure, pulse, and oxygen saturations were monitored continuously. The Colonoscope was introduced through the mouth, and advanced to the second part of duodenum. The upper GI endoscopy was accomplished without difficulty. The patient tolerated the procedure well. Scope In: 9:47:30 AM Scope Out: 9:52:56 AM Total Procedure Duration Time 0 hours 5 minutes 26 seconds Findings: The examined esophagus was normal. A few dispersed, 5 mm non-bleeding erosions were found in the entire examined stomach. There were no stigmata of recent bleeding. Biopsies were taken with a cold forceps for histology. Verification of patient identification for the specimen was done. Estimated blood loss was minimal. Patchy moderate inflammation characterized by congestion (edema) was found in the duodenal bulb, in the first portion of the duodenum and in the second portion of the duodenum. Biopsies were taken with a cold forceps for histology. Verification of patient identification for the specimen was done. Estimated blood loss was minimal. Impression: - Normal esophagus. - Non-bleeding erosive gastropathy. Biopsied. - Duodenitis. Biopsied. Recommendation: - Discharge patient to home. - Resume previous diet. - Continue present medications. - Await pathology results -Blood work for celiac disease. Procedure Code(s): --- Professional --- 63857, Esophagogastroduodenoscopy, flexible, transoral; with biopsy, single or multiple CPT copyright 2017 [employer]. All rights reserved. The codes documented in this report are preliminary and upon corporate security manager review may be revised to meet current compliance requirements. Yoshi Reyes DO 07/01/2022 10:11:02 AM This report has been signed electronically. Number of Addenda: 0 Note Initiated On: 07/01/2022 9:39 AM
--- NOTE | 2022-07-01 10:12 | OP.CCLET_ITS ---
07/01/2022 Elver Rosario [address] [place] [address] Re : Upper GI endoscopy procedure for [facility] Dear Dr. Rosario This procedure was performed on Friday, July 01, 2022. My impressions and recommendations are as follows: Impressions : - Normal esophagus. - Non-bleeding erosive gastropathy. Biopsied. - Duodenitis. Biopsied. Recommendations : - Discharge patient to home. - Resume previous diet. - Continue present medications. - Await pathology results -Blood work for celiac disease. My findings are described in the full procedure note, which is enclosed. If I can be of further assistance, please feel free to contact me at . Sincerely, Yoshi Reyes, 07/01/2022 10:11:02 AM This report has been signed electronically.
--- NOTE | 2022-07-01 10:17 | OP.COLON_ITS ---
Patient Name: Salome Ball Procedure Date: 07/01/2022 9:53 AM Date of : 1950 Age: 72 Procedure: Colonoscopy Indications: Abdominal pain in the left lower quadrant, Clinically significant diarrhea of unexplained origin Providers: Yoshi Reyes DO Medicines: Monitored Anesthesia Care Patient Profile: This is a 72 year old male. Refer to note in patient chart for documentation of history and physical. Patient has symptoms of acute abdominal cramping, chronic abdominal distention, chronic dyspepsia and chronic nausea. Last Colonoscopy: several years ago. Complications: No immediate complications. Procedure: Pre-Anesthesia Assessment: - Prior to the procedure, a History and Physical was performed, and patient medications and allergies were reviewed. The risks and benefits of the procedure and the sedation options and risks were discussed with the patient. All questions were answered and informed consent was obtained. Patient identification and proposed procedure were verified by the physician in the pre-procedure area. Mental Status Examination: alert and oriented. Airway Examination: normal oropharyngeal airway and neck mobility. Respiratory Examination: clear to auscultation. CV Examination: normal. Prophylactic Antibiotics: The patient does not require prophylactic antibiotics. Prior Anticoagulants: The patient has taken no previous anticoagulant or antiplatelet agents. After reviewing the risks and benefits, the patient was deemed in satisfactory condition to undergo the procedure. The anesthesia plan was to use monitored anesthesia care (MAC). Immediately prior to administration of medications, the patient was re-assessed for adequacy to receive sedatives. The heart rate, respiratory rate, oxygen saturations, blood pressure, adequacy of pulmonary ventilation, and response to care were monitored throughout the procedure. The physical status of the patient was re-assessed after the procedure. After I obtained informed consent, the scope was passed under direct vision. Throughout the procedure, the patient's blood pressure, pulse, and oxygen saturations were monitored continuously. The Colonoscope was introduced through the anus and advanced to the terminal ileum. The ileocecal valve, appendiceal orifice, and rectum were photographed. Scope In: 9:54:19 AM Scope Withdrawal Time 0 hours 8 minutes 39 seconds Scope Out: 10:04:52 AM Total Procedure Duration Time 0 hours 10 minutes 33 seconds Findings: The perianal and digital rectal examinations were normal. An area of mildly congested mucosa was found in the sigmoid colon, at the splenic flexure and in the transverse colon. Biopsies were taken with a cold forceps for histology. Verification of patient identification for the specimen was done. Estimated blood loss was minimal. A 5 mm polyp was found in the sigmoid colon. The polyp was sessile. The polyp was removed with a cold snare. Resection and retrieval were complete. Verification of patient identification for the specimen was done. Estimated blood loss was minimal. The terminal ileum appeared normal. Biopsies were taken with a cold forceps for histology. Verification of patient identification for the specimen was done. Estimated blood loss was minimal. A few small-mouthed diverticula were found in the recto-sigmoid colon and sigmoid colon. Impression: - Congested mucosa in the sigmoid colon, at the splenic flexure and in the transverse colon. Biopsied. - One 5 mm polyp in the sigmoid colon, removed with a cold snare. Resected and retrieved. - The examined portion of the ileum was normal. Biopsied. Recommendation: - Discharge patient to home. - Resume previous diet. - Continue present medications. - Await pathology results. - Repeat colonoscopy in 5 years for surveillance. Procedure Code(s): --- Professional --- 44659, Colonoscopy, flexible; with removal of tumor(s), polyp(s), or other lesion(s) by snare technique 99260, 59, Colonoscopy, flexible; with biopsy, single or multiple CPT copyright 2017 [employer] [place] [employer]. All rights reserved. The codes documented in this report are preliminary and upon gelatin powder mixer review may be revised to meet current compliance requirements. Yoshi Reyes DO 07/01/2022 10:16:37 AM This report has been signed electronically. Number of Addenda: 0 Note Initiated On: 07/01/2022 9:53 AM
--- NOTE | 2022-07-01 10:18 | OP.CCLET_ITS ---
07/01/2022 Elver Rosario [address] [place] [address] Re : Colonoscopy procedure for [facility] Dear Dr. Rosario This procedure was performed on Friday, July 01, 2022. My impressions and recommendations are as follows: Impressions : - Congested mucosa in the sigmoid colon, at the splenic flexure and in the transverse colon. Biopsied. - One 5 mm polyp in the sigmoid colon, removed with a cold snare. Resected and retrieved. - The examined portion of the ileum was normal. Biopsied. Recommendations : - Discharge patient to home. - Resume previous diet. - Continue present medications. - Await pathology results. - Repeat colonoscopy in 5 years for surveillance. My findings are described in the full procedure note, which is enclosed. If I can be of further assistance, please feel free to contact me at . Sincerely, Yoshi Reyes, DO 07/01/2022 10:16:37 AM This report has been signed electronically.
== END 2022-07-01 11:05 | disposition home or self-care (01) ==
LOC: EN 08:00 → AC 08:01
PROVIDERS: PCP Family Medicine; Referring Provider Family Medicine; Visit Provider Internal Medicine Gastroenterology
PROC: 0DJD8ZZ Inspection of Lower Intestinal Tract, Via Natural or Artificial Opening Endoscopic (ICD-10-PCS; CPT 45378; principal; 2022-07-01 09:10)
DX: K29.70 Gastritis, unspecified, without bleeding (principal); I48.91 Unspecified atrial fibrillation; E11.9 Type 2 diabetes mellitus without complications; K30 Functional dyspepsia; R68.81 Early satiety; D64.9 Anemia, unspecified; K29.80 Duodenitis without bleeding; R10.32 Left lower quadrant pain; K52.9 Noninfective gastroenteritis and colitis, unspecified; E78.5 Hyperlipidemia, unspecified; I25.10 Atherosclerotic heart disease of native coronary artery without angina pectoris; E03.9 Hypothyroidism, unspecified; Z95.1 Presence of aortocoronary bypass graft; K59.00 Constipation, unspecified; R53.83 Other fatigue; D12.5 Benign neoplasm of sigmoid colon
CPT/HCPCS: 45385; 43239; 45380; 82962; 88305; 88313; 88342; J7120; J2405

== ENCOUNTER → 2022-07-13 | Outpatient (CLI) | payer MEDICARE, OTHER, SELFPAY ==
[2022-07-13 10:40] LABS: PSA,Total - Annual Screen 0.89 ng/mL (0.00-4.00)
== END | disposition home or self-care (01) ==
PROVIDERS: PCP Family Medicine; Referring Provider Urology; Visit Provider Urology
DX: Z12.5 Encounter for screening for malignant neoplasm of prostate (principal)
CPT/HCPCS: 36415; 84153; G0103

== ENCOUNTER → 2023-06-07 | Outpatient (CLI) | payer MEDICARE, OTHER, SELFPAY ==
[2023-06-07 11:30] LABS: Hematocrit 35.3 % (40-54); Hemoglobin 11.3 g/dL (13.0-16.5); Mean Corpuscular Hgb 28.9 pg (27.0-32.0); Mean Corpuscular Volume 90.3 fL (80-94); Mean Platelet Vol. 10.1 fl (6.2-12.0); Platelet Count 247 K/mm3 (150-450); RBC Distribution Width SD 49.3 fl (35.1-43.9); Red Blood Count 3.91 M/mm3 (4.6-6.2)
[2023-06-07 12:02] LABS: BNP,B-Type NATRIURETIC PEPTIDE 319.5 pg/mL (0-100)
[2023-06-07 12:19] LABS: ALB/GLOB Ratio 1.1 RATIO (0.9-2.4); AST(SGOT) 20 U/L (15-37); Alanine Aminotransfer ALT/SGPT 18 U/L (16-61); Albumin, Serum 3.9 g/dL (3.2-5.0); Alkaline Phosphatase 70 U/L (45-117); Anion Gap 6 (5-15); BUN 19 mg/dL (7-18); BUN/Creat Ratio 10.7 RATIO (10-20); Calcium,Total 9.1 mg/dL (8.5-10.1); Chloride 107 mmol/L (98-107); Creatinine, Serum 1.77 mg/dL (0.70-1.30); EST Glomerular Filtration Rate 40 mL/min (>60); Est Glom Filt Rate - Afr Amer 49 mL/min (>60); Globulin 3.6 g/dL (2.2-4.2); Glucose 163 mg/dL (74-106); Potassium 4.6 mmol/L (3.5-5.1); Protein, Total 7.5 g/dL (6.4-8.2); Sodium Level 139 mmol/L (136-145); Thyroid Stim Hormone (TSH) 1.47 uIU/mL (0.358-3.74)
== END | disposition home or self-care (01) ==
LOC: LAB 10:35
PROVIDERS: PCP Family Medicine; Referring Provider Physician Assistant Medical; Visit Provider Physician Assistant Medical
DX: R60.9 Edema, unspecified (principal); I48.0 Paroxysmal atrial fibrillation; Z86.79 Personal history of other diseases of the circulatory system; Z79.899 Other long term (current) drug therapy; R06.02 Shortness of breath; I25.10 Atherosclerotic heart disease of native coronary artery without angina pectoris; D64.9 Anemia, unspecified
CPT/HCPCS: 36415; 80053; 83880; 84443; 85027

== ENCOUNTER → 2023-07-06 | Outpatient (CLI) | payer MEDICARE, OTHER, SELFPAY ==
--- NOTE | 2023-07-06 | CYSPIN_PTH ---
PATIENT: DANI SHETH LOC: [facility] U#:[id number] AGE/SX: 73/M ROOM: RE07/06/[address]: Dr. Eugene Foreman MD : 1950 BED: DIS: 07/06/2023 SPEC #: [id number] RECD: 07/07/23 08:36 STATUS: BIB REAnthony #: [id number] CLAUDIA: 07/06/23 00:[address]: Eugene Foreman DEPT: CYTOLOGY RECD BY: Amanda Christie ENTERED: 07/07/23 08:36 SP TYPE: CYSPIN FL OTHR DR: Dr. Elver Rosario MD Tissues: Urine Procedures: Pap Stain (control) Special Stain Group II Cytospin Fluid HEADER OPERATION: Not noted PRE-OP DIAGNOSIS: Personal history of malignant neoplasm of bladder TISSUE SUBMITTED: Urine for cytology DIAGNOSIS CYTOLOGY Urine for cytology (cytospin): Negative for high-grade urothelial carcinoma (NHGUC), Cristina System Category II. Amorphous proteinaceous casts. See comment. AM/mr 07/07/2023 COMMENT Clinical correlation is suggested. The Cristina System for urine cytology diagnostic categorization was used in the evaluation of this case. CYTOLOGY STUDY Slides are reviewed. CYTOLOGY GROSS Received is 60 ml of dark yellow-cloudy fluid labeled with the patient's name and and designated per the requisition as urine. Submitted for cytology preparation. mr 07/06/23 TC:5 CPT: 86680
[2023-07-06 10:13] LABS: PSA,Total - Annual Screen 0.81 ng/mL (0.00-4.00)
[2023-07-06 16:34] LABS: Cytology, Body Fluid / CSF SEE PATHOLOGY REPORT
== END | disposition home or self-care (01) ==
PROVIDERS: PCP Family Medicine; Referring Provider Urology; Visit Provider Urology
DX: Z12.5 Encounter for screening for malignant neoplasm of prostate (principal); Z85.51 Personal history of malignant neoplasm of bladder
CPT/HCPCS: 36415; 84153; 88108; 88313; G0103

== ENCOUNTER → 2024-02-15 | Outpatient (CLI) | payer MEDICARE, OTHER, SELFPAY ==
[2024-02-15 08:34] LABS: Absolute Neutrophil Count 2.2 X10^3/uL (2.0-7.7); Basophil# 0.03 X10^3/uL; Basophil% 0.7 % (0-1); Eosinophil# 0.06 X10^3/uL; Eosinophils% 1.4 % (0-5); Lymphocyte % 35.5 % (19-41); Mean Corp Hgb Conc 31.4 g/dL (32-36); Mean Corpuscular Hgb 27.8 pg (27.0-32.0); Mean Corpuscular Volume 88.6 fL (80-94); Mean Platelet Vol. 10.4 fl (6.2-12.0); Monocyte# 0.46 X10^3/uL; Monocyte% 10.9 % (0-10); NRBC Flagged by Analyzer 0 % (0-5); Neutrophil # 2.15 X10^3/uL (2.7-7.7); Platelet Count 222 K/mm3 (150-450); RBC Distribution Width CV 14.9 % (11.6-14.6); RBC Distribution Width SD 48.6 fl (35.1-43.9); Red Blood Count 3.95 M/mm3 (4.6-6.2); White Blood Count 4.2 K/mm3 (4.4-11.0)
[2024-02-15 09:13] LABS: ALB/GLOB Ratio 1.2 RATIO (0.9-2.4); AST(SGOT) 22 U/L (15-37); Alanine Aminotransfer ALT/SGPT 25 U/L (16-61); Albumin, Serum 3.8 g/dL (3.2-5.0); Alkaline Phosphatase 74 U/L (45-117); Anion Gap 9 (5-15); BUN 20 mg/dL (7-18); BUN/Creat Ratio 10.1 RATIO (10-20); Calcium,Total 8.8 mg/dL (8.5-10.1); Chloride 106 mmol/L (98-107); Creatinine, Serum 1.98 mg/dL (0.70-1.30); EST Glomerular Filtration Rate 35 mL/min (>60); Est Glom Filt Rate - Afr Amer 43 mL/min (>60); Globulin 3.3 g/dL (2.2-4.2); Glucose 134 mg/dL (74-106); Potassium 3.8 mmol/L (3.5-5.1); Protein, Total 7.1 g/dL (6.4-8.2); Sodium Level 141 mmol/L (136-145)
== END | disposition home or self-care (01) ==
LOC: LAB 07:44
PROVIDERS: PCP Family Medicine; Referring Provider Nurse Practitioner Family; Visit Provider Nurse Practitioner Family
DX: R06.02 Shortness of breath (principal); N18.32 Chronic kidney disease, stage 3b; Z86.79 Personal history of other diseases of the circulatory system; R60.9 Edema, unspecified; R53.83 Other fatigue; Z79.899 Other long term (current) drug therapy
CPT/HCPCS: 36415; 80053; 83880; 84443; 85025

== ENCOUNTER → 2024-02-23 | Outpatient (CLI) | payer MEDICARE, OTHER, SELFPAY | END | disposition home or self-care (01) | LOC: CVS 12:41 | PROVIDERS: PCP Family Medicine; Referring Provider Nurse Practitioner Family; Visit Provider Nurse Practitioner Family | DX: R06.00 Dyspnea, unspecified (principal); I48.0 Paroxysmal atrial fibrillation; Z86.79 Personal history of other diseases of the circulatory system; I25.10 Atherosclerotic heart disease of native coronary artery without angina pectoris | CPT/HCPCS: 93306; Q9957; A4216; C8929 ==

== ENCOUNTER → 2024-07-06 | Outpatient (CLI) | payer MEDICARE, OTHER, SELFPAY ==
[2024-07-06 09:30] LABS: PSA,Total - Annual Screen 1.16 ng/mL (0.02-4.00)
== END | disposition home or self-care (01) ==
LOC: LAB 08:07
PROVIDERS: PCP Family Medicine; Referring Provider Urology; Visit Provider Urology
DX: Z12.5 Encounter for screening for malignant neoplasm of prostate (principal)
CPT/HCPCS: 36415; 84153; G0103

== ENCOUNTER → 2024-12-14 | Outpatient (CLI) | payer MEDICARE, OTHER, SELFPAY ==
--- NOTE | 2024-12-14 10:24 | RAD_ITS ---
PROCEDURE: CHEST PA AND LATERAL 12/14/2024 REASON FOR EXAM: PIKE, COUGH TECHNIQUE: CHEST PA AND LATERAL COMPARISON: PA and lateral chest of 02/04/2022. RAD/Chest PA and Lateral IMPRESSION: Upper abdominal surgical clips are again seen. Sternotomy wires and mediastinal surgical clips are again noted. Prior coronar y artery stenting is seen. Partially visualized left shoulder prosthesis appears without apparent complica tion. No evidence of pulmonary edema. Lungs appear clear of acute disease. No pleural effusion or pneumothorax is evident. The cardiomediastinal silhouette is remarkable for a calcified and tortuous aor ta. No evidence of cardiomegaly. [id number] degenerative changes of the visualized spine noted, along with thoracic DISH. No evidence of acute cardiopulmonary disease. Reading Location: [place] [id number]
[2024-12-14 11:17] LABS: Hematocrit 35.7 % (40-54); Hemoglobin 12.6 g/dL (13.0-16.5); Immature Granulocytes Count 0.020 X10^3/uL (0.0-0.0); Mean Corp Hgb Conc 35.3 g/dL (32-36); Mean Corpuscular Volume 97.3 fL (80-94); Mean Platelet Vol. 10.1 fl (6.2-12.0); NRBC Flagged by Analyzer 0 % (0-5); Platelet Count 215 K/mm3 (150-450); RBC Distribution Width CV 12.5 % (11.6-14.6); RBC Distribution Width SD 44.1 fl (35.1-43.9); Red Blood Count 3.67 M/mm3 (4.6-6.2); White Blood Count 5.3 K/mm3 (4.4-11.0)
[2024-12-14 12:09] LABS: AST(SGOT) 26 U/L (<=37); Alanine Aminotransfer ALT/SGPT 19 U/L (<=46); Albumin, Serum 4.4 g/dL (3.4-4.8); Alkaline Phosphatase 78 U/L (40-129); Anion Gap 15 (5-15); BUN 27 mg/dL (4-19); BUN/Creat Ratio 11.1 RATIO (10-20); Calcium,Total 9.9 mg/dL (7.6-11.0); Carbon Dioxide 24.6 mmol/L (21.0-32.0); Chloride 99 mmol/L (98-108); Free T3 2.7 pg/mL (2.18-3.98); Globulin 2.9 g/dL (2.2-4.2); Glucose 152 mg/dL (70-99); Potassium 4.5 mmol/L (3.3-5.1); Pro- Brain NATRIURETIC PEPTIDE 688 pg/mL (<=1800)
== END | disposition home or self-care (01) ==
LOC: RAD 10:23
PROVIDERS: PCP Family Medicine; Referring Provider Nurse Practitioner Gerontology; Visit Provider Nurse Practitioner Gerontology
DX: R06.02 Shortness of breath (principal); I48.91 Unspecified atrial fibrillation; R06.09 Other forms of dyspnea; Z79.899 Other long term (current) drug therapy
CPT/HCPCS: 36415; 71046; 80053; 83880; 84439; 84443; 84481; 85025

== ENCOUNTER → 2024-12-28 | Outpatient (CLI) | payer MEDICARE, OTHER, SELFPAY ==
--- OUTSIDE RECORDS SUMMARY | 2024-12-28 06:31 | XMS RPT_ITS | CCD ---
Author Organization [facility] Care Team Providers Care Atmospheric Sciences Professor Name Role Phone Dr. Allan Rosario Primary Care Provider [phone] Dr. Allan Rosario Referring Provider Roof FAMILY DAY CARE PROVIDER, FAMILY DAY CARE PROVIDER-Princess Jameson Attending Provider Allan Rosario MD Primary Care Provider Dr. Allan Rosario Primary Care Provider Dr. Allan Rosario Referring Provider Roof FAMILY DAY CARE PROVIDER, FAMILY DAY CARE PROVIDER-Princess Jameson Attending Provider Allan Rosario MD Primary Care Provider Dr. Allan Rosario Primary Care Provider Dr. Allan Rosario Referring Provider Roof FAMILY DAY CARE PROVIDER, FAMILY DAY CARE PROVIDER-Princess Jameson Attending Provider MD Jorge Stover Emergency Provider Dr. Juve Garcia Attending Provider Dr. Juve Garcia Admit Provider Dr. Juve Garcia Other Provider Dr. Renzo Jeffrey Other Provider Dr. North Mishra Attending Provider Dr. North Mishra Other Provider Dr. Ian Coats Other Provider Dr. Carter Richmond Other Provider Unavailab Harrell FAMILY DAY CARE PROVIDER, FAMILY DAY CARE PROVIDER-C Nan Other Provider Dr. Preet Choudhury Other Provider Unavailable Dr. Juve Lan Attending Provider Dr. Juve Lan Other Provider Dr. Jacky Rousseau Attending Provider Dr. Tory Sosa Other Provider Dr. Tory Sosa Attending Provider Dr. Allan Rosario Primary Care Provider Dr. Allan Rosario Referring Provider Xiao FAMILY DAY CARE PROVIDER, FAMILY DAY CARE PROVIDER-C Marvin Jameson Attending Provider MD Jorge Stover Emergency Provider Dr. Juve Garcia Attending Provider Dr. Jacky Rousseau Attending Provider Dr. Juve Lan Referring Provider Dr. Juve Garcia Admit Provider Dr. Juve Garcia Other Provider Dr. Renzo Jeffrey Other Provider Dr. North Mishra Attending Provider Dr. North Mishra Other Provider Dr. Ian Coats Other Provider Dr. Carter Richmond Other Provider Unavailab Harrell FAMILY DAY CARE PROVIDER, FAMILY DAY CARE PROVIDER-C Nan Other Provider Dr. Preet Choudhury Referring Provider Unavailable Dr. Preet Choudhury Other Provider Unavailable Dr. Juve Lan Attending Provider Dr. Juve Lan Other Provider Dr. Tory Sosa Other Provider Dr. Tory Sosa Attending Provider Donny FAMILY DAY CARE PROVIDER, FAMILY DAY CARE PROVIDER-C Lois Attending Provider Allan Rosario MD Primary Care Provider Dr. Allan Rosario Primary Care Provider Dr. Allan Rosario Referring Provider Dr. Benito Patel Attending Provider Denilson FAMILY DAY CARE PROVIDER, FAMILY DAY CARE PROVIDER-C Ruma Barrientos Attending Provider Dr. Allan Rosario Primary Care Provider Dr. Allan Rosario Referring Provider Donny FAMILY DAY CARE PROVIDER, FAMILY DAY CARE PROVIDER-C Lois Attending Provider Dr. Benito Patel Attending Provider Denilson FAMILY DAY CARE PROVIDER, FAMILY DAY CARE PROVIDER-C Ruma Barrientos Attending Provider Dr. Yoshi Reyes Attending Provider [phone] Dr. Yoshi Reyes Other Provider [phone] Allan Rosario Primary Care Provider Dr. Allan Rosario Referring Provider Xiao FAMILY DAY CARE PROVIDER, FAMILY DAY CARE PROVIDER-C Marvin Jameson Attending Provider Dr. Allan Rosario Primary Care Provider Dr. Allan Rosario Referring Provider Xiao FAMILY DAY CARE PROVIDER, FAMILY DAY CARE PROVIDER-C Marvin Jameson Attending Provider Dr. Allan Rosario Primary Care Provider Dr. Allan Rosario Referring Provider Xiao FAMILY DAY CARE PROVIDER, FAMILY DAY CARE PROVIDER-C Marvin Jameson Attending Provider Allan Rosario MD Primary Care Provider Tritsan HEALTH INFORMATICS SPECIALIST.CROCHET BEADER, Marina Unavailable Al HEALTH INFORMATICS SPECIALIST.CROCHET BEADER, Kamari Unavailable Dr. Allan Rosario MD Primary Care Provider [phone] Dr. Allan Rosario MD Referring Provider Xiao FAMILY DAY CARE PROVIDER-CMarvin Attending Provider Kellen DORANTES, Dr. Eugene Goel Attending Provider Kellen DORANTES, Dr. Eugene Goel Referring Provider [facility] HEALTH INFORMATICS SPECIALIST.CROCHET BEADER, Marina Unavailable [phone] ELDERBROCK, ALLAN D Referring Unavailable ELDERBROCK, ALLAN D Primary Care Unavailable ELDERBROCK, ALLAN D Attending Unavailable ELDERBROCK, ALLAN D Primary Care Unavailable ELDERBROCK, ALLAN D Referring Unavailable ELDERBROCK, ALLAN D Primary Care Unavailable DAYO GRAF Attending Unavailable ELDERBROCK, ALLAN D Primary Care Unavailable ELDERBROCK, ALLAN D Attending Unavailable ELDERBROCK, ALLAN D Primary Care Unavailable ELDERBROCK, ALLAN D Primary Care Unavailable ELDERBROCK, ALLAN D Attending Unavailable ELDERBROCK, ALLAN D Primary Care Unavailable Marlene DORANTES, Dr. Raya Primary Care Provider [phone] Dr. Allan Rosario MD Referring Provider Donny FAMILY DAY CARE PROVIDER-C, Lois Attending Provider [phone] Donny FAMILY DAY CARE PROVIDER-C, Lois Referring Provider Marlene, Allan Primary Care Unavailable Elderbrock, Allan Referring Unavailable Roof FAMILY DAY CARE PROVIDER, Marvin Jameson Attending Unavailable Agnes Hastings Attending Unavailable Elderbrock, Allan Primary Care Unavailable Ronnie Aldridge Attending Unavailable Elderbrock, Allan Primary Care Unavailable Elderbrock, Allan Referring Unavailable Elderbrock, Allan Primary Care Unavailable Donny FAMILY DAY CARE PROVIDER, Lois Attending Unavailable Elderbrock, Allan Referring Unavailable Elderbrock, Allan Primary Care Unavailable Elderbrock, Allan Referring Unavailable Roof FAMILY DAY CARE PROVIDER, Marvin Jameson Attending Unavailable Hines FAMILY DAY CARE PROVIDER, Lois Attending Unavailable Hines FAMILY DAY CARE PROVIDER, Lois Referring Unavailable Elderbrock, Allan Primary Care Unavailable Elderbrock, Allan Primary Care Unavailable Eugene Foreman Attending Unavailable KellenEugene Referring Unavailable Hines FAMILY DAY CARE PROVIDER, Lois Attending Unavailable Hines FAMILY DAY CARE PROVIDER, Lois Referring Unavailable Elderbrock, Allan Primary Care Unavailable Elderbrock, Allan Primary Care Unavailable Roof FAMILY DAY CARE PROVIDER, Marvin Jameson Attending Unavailable Roof FAMILY DAY CARE PROVIDER, Marvin Jameson Referring Unavailable Roof FAMILY DAY CARE PROVIDER, Marvin Jameson Referring Unavailable Elderbrock, Allan Primary Care Unavailable Roof FAMILY DAY CARE PROVIDER, Marvin Jameson Attending Unavailable Allergies Allergy Classification Reported Allergen(s) Allergy Type Date of Onset Reaction(s) Facility amLODIPine (1 source) amLODIPine Drug Allergy 017 Rash, Swelling [facility] Work Phone: Furosemide (1 source) Furosemide Drug Allergy Other: See Comments [facility] hydroCHLOROthiazide (1 source) hydroCHLOROthiazide Drug Allergy Other: See Comments [facility] levothyroxine (1 source) levothyroxine Drug Allergy Other: See Comments [facility] liothyronine (1 source) liothyronine Drug Allergy Other: See Comments [facility] Opioid Agonists (1 source) Morphine Drug Allergy Other: See Comments [facility] Sulfonamides (antibiotic) (1 source) Sulfonamides (Antibiotic) Drug Allergy Other: See Comments [facility] (19 sources) apixaban Drug Allergy blood in stools [facility] (19 sources) Fish Oils Drug Allergy Mouth Sores [facility] (19 sources) levothyroxine Drug Allergy mouth sores,diarrhe a,stomach cramps [facility] (20 sources) Morphine; Translations: [MORPHINE] Drug Allergy Other: See Comments [facility] (20 sources) Sulfonamides (Antibiotic); Translations: [SULFA (SULFONAMIDE ANTIBIOTICS)] Allergy to substance Other: See Comments [facility] (20 sources) Rteqdkg-Aba-Qdv Reductase Inhibitor; Translations: [Gjjywen-Ock-Ojz Reductase Inhibitor] Allergy to substance Severe mouth sores [facility] (20 sources) amLODIPine; Translations: [AMLODIPINE] Drug Allergy Rash, Swelling [facility] Work Phone: (20 sources) Furosemide; Translations: [FUROSEMIDE] Drug Allergy Other: See Comments [facility] Work Phone: (9 sources) HMG-CoA reductase inhibitor; Translations: [INSGIXE-JQO-KWB REDUCTASE INHIBITORS] Drug Allergy Other: See Comments [facility] Work Phone: (20 sources) hydroCHLOROthiazide; Translations: [HYDROCHLOROTHIAZIDE] Drug Allergy Other: See Comments [facility] Work Phone: (20 sources) levothyroxine; Translations: [LEVOTHYROXINE] Drug Allergy Other: See Comments [facility] (20 sources) liothyronine; Translations: [LIOTHYRONINE] Drug Allergy 018 Other: See Comments [facility] (20 sources) HMG-CoA reductase inhibitor Drug Allergy 017 Other: See Comments [facility] Work Phone: (1 source) apixaban Drug Allergy [facility] Repository (1 source) Fish Oils Drug Allergy [facility] Repository (1 source) hydroCHLOROthiazide Drug Allergy [facility] Repository (1 source) levothyroxine Drug Allergy [facility] Repository (1 source) Morphine Drug Allergy [facility] Repository Medications Current Medications Medication Drug Class(es) Dates Sig (Normalized) Sig (Original) 8 hr acetaminophen 650 mg extended release oral tablet (20 sources) Start: 02-16-2024 Acetaminophen (Tylenol Arthritis Pain) 650 mg tablet extended release Active 1300 mg PO AT BEDTIME February 16, 2024 12:00am Start: 10-23-2020 End: 02-16-2024 take 2 tablets by mouth every four hours as needed acetaminophen (TYLENOL) 325 mg tablet 650 mg every 4 hours as needed. 10/23/2020 Active Comment on above: 650 mg every 4 hours as needed. amiodarone hydrochloride 200 mg oral tablet (20 sources) Antiarrhythmic Start: 05-04-2023 End: 05-09-2024 amiodarone (PACERONE) 200 mg tablet Taking 0.5 tab at bedtime 45 tablet 3 05/09/2024 Active Start: 06-16-2021 End: 04-24-2022 amiodarone (PACERONE) 200 mg tablet Taking 0.5 tab at bedtime 45 tablet 3 04/24/2022 Active Start: 11-26-2020 End: 06-24-2022 Amiodarone 200 mg tablet Discontinued 100 mg PO DAILY July 07, 2021 12:14pm June 24, 2022 3:41pm Start: 11-26-2020 End: 06-24-2022 take 100 mg by mouth once daily Amiodarone Discontinue d 100 MG PO DAILY July 07, 2021 12:14pm June 24, 2022 3:41pm Start: 10-23-2020 End: 11-26-2020 take 1 tablet by mouth once daily Amiodarone 200 mg tablet Discontinued 200 mg PO DAILY 90 3 November 11, 2020 12:33pm November 26, 2020 4:07pm Comment on above: Taking 0.5 tab at be dtime amLODIPine 10 mg oral tablet (20 sources) Dihydropyridine Calcium Channel Lisa Start: take 1 tablet by mouth once daily amLODIPine (NORVASC) 10 mg tablet Take 1 tablet by mouth once daily. 90 tablet 3 07/10/2024 Active Start: 02-04-2022 End: 07-08-2024 take 1 tablet by mouth once daily Amlodipine 10 mg Tablet Active 10 mg PO DAILY 30 February 04, 2022 12:00am Start: 10-23-2020 End: 04-24-2022 take 1 tablet by mouth once daily Amlodipine 5 mg Tablet Discontinued 5 mg PO DAILY 30 October 23, 2020 12:00am January 06, 2022 10:01am Comment on above: Take 1 tablet by lino once daily. aspirin 81 mg oral tablet (20 sources) Platelet Aggregation Inhibitor, Nonsteroidal Anti-inflammatory Drug Start: 10-20-2020 take 1 tablet by mouth once daily Aspirin 81 mg Tablet Active 81 mg PO DAILY October 20, 2020 12:00am Start: 08-25-2017 End: 03-09-2019 Aspirin (Adult Low Dose Aspi rin) 81 mg tablet,delayed release (DR/EC) Discontinued 81 mg PO daily August 25, 2017 12:00am March 09, 2019 8:36am heart health Comment on above: Take 81 mg by mouth once daily. cholecalciferol 0.125 mg oral tablet (20 sources) Vitamin D Start: 03-18-20 take 1 tablet by mouth once daily Cholecalciferol (Vitamin D3) 125 mcg (5,000 unit) tablet Active 125 ug PO DAILY March 18, 2021 1:00am Start: 10-20-2020 End: 03-18-2021 take 1 tablet by mouth once daily Cholecalciferol (Vitamin D3) (Vitamin D3) 25 mcg (1,000 unit) Tablet Discontinued 25 ug PO DAILY October 20, 2020 12:00am March 18, 2021 9:29am vitamin Start: 08-25-2017 End: 11-08-2020 take 1 capsule by mouth once daily Cholecalciferol (Vitamin D3) 1,000 unit capsule Discontinued 1000 U PO daily August 25, 2017 12:00am November 08, 2020 10:27am supplement take 1 tablet by lino th once daily cholecalciferol (VITAMIN D-3) 5,000 unit tab Take 5,000 Units by mouth once daily. Active Comment on above: Take 5,000 Units by mouth once daily. CPAP (20 sources) Start: 01-29-2022 CPAP Indications: PRAKASH (obstructive sleep apnea) Initiate CPAP @ 12 cm of water with humidification. Mask (per patient preference) optional chin strap (if indicated) , filters, tubing, humidifier and lifetime supplies. 1 Each 01/29/2022 Active Start: 01-29-2022 CPAP Indicatio ns: PRAKASH (obstructive sleep apnea) Initiate CPAP @ 12 cm of water with humidification. Mask (per patient preference) optional chin strap (if indicated) , filters, tubing, humidifier and lifetime supplies. 1 Each 0 01/29/2022 Active Start: 09-07-2018 End: 01-29-2022 CPAP Initiate CPAP @ 12 cm o f water with humidification. Mask (per patient preference) optional chin strap (if indicated) , filters, tubing, humidifier and lifetime supplies. 1 Device 09/07/2018 01/29/2022 Discontinued Start: 09-07-2018 End: 01-29-2022 CPAP Initiate CPAP @ 12 cm o f water with humidification. Mask (per patient preference) optional chin strap (if indicated) , filters, tubing, humidifier and lifetime supplies. 1 Device 0 09/07/2018 01/29/2022 Discontinued Start: 09-07-2018 CPAP Initiate CPAP @ 12 cm of water with humidification. Mask (per patient preference) optional chin strap (if indicated) , filters, tubing, humidifier and lifetime supplies. 1 Device 0 09/07/2018 Active Comment on above: Initiate CPAP @ 12 c m of water with humidification. Mask (per patient preference) optional chin strap (if indicated) , filters, tubing, humidifier and lifetime supplies. cyanocobalamin, vitamin B-12, (VITAMIN B-12 ORAL) (20 sources) take 2000 mg by mouth once daily cyanocobalamin, vitamin B-12, (VITAMIN B-12 ORAL) Take by mouth once daily. 2000 mg Active take 2000 mg by mouth once daily cyanocobalamin, vitamin B-12, (VITAMIN B-12 ORAL) Take by mouth once daily. 2000 mg 0 Active Comment on above: Take by mouth once d aily. 2000 mg doxycycline monohydrate 100 mg oral tablet (2 sources) Tetracycline-class Drug Start: 09-12-2024 End: 09-17-2024 take 1 tablet by mouth twice daily doxycycline monohydrate 100 mg tablet Take 1 tablet by mouth two times a day for 5 days. 10 tablet 09/12/2024 09/17/2024 Active furosemide 40 mg oral tablet (20 sources) Loop Diuretic Start: 12-14-2024 Furosemide 40 mg tablet Active 60 mg PO TWICE A DAY December 14, 2024 9:43am Start: 03-20-2024 End: 12-14-2024 take 1 tablet by mouth twice daily Furosemide 40 mg tablet Discontinued 40 mg PO TWICE A DAY March 20, 2024 10:40am December 14, 2024 9:44am Start: 02-14-2024 End: 03-20-2024 Furosemide 40 mg tablet Disc ontinued 60 mg PO DAILY 90 3 February 16, 2024 3:39pm March 20, 2024 10:44am increased by PCP Dr. Rosario 60mg in AM and 40mg in PM Start: 09-30-2021 End: 10-01-2021 Furosemide 40 mg tablet Disc ontinued 20 mg PO DAILY September 30, 2021 8:40am October 01, 2021 8:37am Start: 09-30-2021 End: 10-01-2021 take 20 mg by mouth once daily Furosemide Discontinued 20 MG PO DAILY September 30, 2021 8:40am October 01, 2021 8:37am Start: 03-24-2021 End: 01-29-2022 take 0.5 tablet by mouth once daily furosemide (LASIX) 40 mg tablet Take 0.5 tablets by mouth once daily. 90 tablet 3 03/24/2021 01/29/2022 Discontinued Start: 12-11-2020 End: 05-09-2024 take 1 tablet by mouth once daily furosemide (LASIX) 40 mg tablet Indications: Essential hypertension , Coronary artery disease involving [place] coronary artery of [place] heart without angina pectoris Take 1 tablet by mouth once daily. 90 tablet 3 05/09/2024 Active Start: 11-26-2020 End: 12-11-2020 Furosemide 40 mg tablet Disc ontinued 20 mg PO DAILY 30 November 26, 2020 4:06pm December 11, 2020 1:05pm Start: 11-26-2020 End: 12-11-2020 take 20 mg by mouth once daily Furosemide Discontinued 20 MG PO DAILY November 26, 2020 4:06pm December 11, 2020 1:05pm Start: 10-23-2020 End: 11-26-2020 take 1 tablet by mouth once daily Furosemide 40 mg Tablet Discontinued 40 mg PO DAILY 30 October 23, 2020 12:00am November 26, 2020 4:07pm Comment on above: Take 0.5 tablets by mouth once daily. Take 1 tablet by lino th once daily. TAKE 1 TABLET ONCE D AILY. gabapentin 300 mg oral capsule (20 sources) Anti-epileptic Agent Start: 01-10-2024 End: 06-25-2025 take 1 capsule by mouth twice daily gabapentin (NEURONTIN) 300 mg capsule Indications: RLS (restless legs syndrome) , Neuropathy Take 1 capsule by mouth two times a day for 180 days. 180 capsule 1 12/27/2024 06/25/2025 Active Start: 04-02-2022 End: 10-31-2023 take 1 capsule by mouth twice daily gabapentin (NEURONTIN) 300 mg capsule Indications: RLS (restless legs syndrome) , Neuropathy Take 1 capsule by mouth two times a day for 180 days. 180 capsule 1 05/04/2023 10/31/2023 Active Start: 05-30-2021 End: 11-26-2021 take 1 capsule by mouth twice daily gabapentin (NEURONTIN) 300 mg capsule Indications: RLS (restless legs syndrome) , Neuropathy Take 1 capsule by mouth twice daily for 180 days. 180 capsule 1 05/30/2021 Active Start: 10-20-2020 take 2 capsules by m outh at bedtime Gabapentin 300 mg Capsule Active 600 mg PO AT BEDTIME October 20, 2020 12:00am nerve pain Start: 10-20-2020 take 600 mg by mouth at bedtim e Gabapentin Active 600 MG PO AT BEDTIME October 20, 2020 12:00am Start: 07-02-2020 End: 01-10-2021 take 1 capsule by mouth twice daily gabapentin (NEURONTIN) 300 mg capsule Indications: RLS (restless legs syndrome) , Neuropathy Take 1 capsule by mouth twice daily for 180 days. 180 capsule 1 07/02/2020 01/10/2021 Discontinued Start: 12-30-2015 End: 11-08-2020 take 1 capsule by mouth three times daily Gabapentin 300 MG capsule Discontinued 300 mg PO THREE TIMES A DAY December 30, 2015 12:00am November 08, 2020 10:21am Comment on above: Take 1 capsule by mo uth twice daily for 180 days. Take 1 capsule by mo uth two times a day for 180 days. glipiZIDE 10 mg oral tablet (20 sources) Sulfonylurea Start: 05-04-2023 End: 05-09-2024 take 1 tablet by mouth once daily glipiZIDE (GLUCOTROL) 10 mg tablet Take 1 tablet (10 mg) by mouth once daily. 90 tablet 3 05/09/2024 Active Start: 04-24-2022 End: 03-22-2023 take 1 tablet by mouth once daily glipiZIDE (GLUCOTROL) 10 mg tablet Take 1 tablet by mouth once daily. 90 tablet 3 03/22/2023 Active Start: 01-29-2022 End: 04-24-2022 take 1 tablet by mouth once daily glipiZIDE (GLUCOTROL) 5 mg tablet Indications: Type 2 diabetes mellitus with diabetic neuropathy, without long-term current use of insulin (HCC) Take 1 tablet by mouth once daily. 90 tablet 3 01/29/2022 04/24/2022 Discontinued (Dosage adjustment) Start: 03-18-2021 End: 01-29-2022 take 1 tablet by mouth once daily Glipizide 10 mg tablet extended release 24hr Active 10 mg PO DAILY March 18, 2021 1:00am Start: 10-20-2020 End: 03-18-2021 take 2 tablets by mouth once daily Glipizide 10 mg Tablet Discontinued 20 mg PO DAILY October 20, 2020 12:00am March 18, 2021 9:28am diabetes Start: 10-20-2020 End: 03-18-2021 take 20 mg by mouth once daily Glipizide Discontinued 20 MG PO DAILY October 20, 2020 12:00am March 18, 2021 9:28am Start: 07-02-2020 End: 01-10-2021 take 2 tablets by mouth once daily glipiZIDE (GLUCOTROL XL) 10mg 24 hr tablet Indications: Type 2 diabetes mellitus without complication, without long-term current use of insulin (HCC) Take 2 tablets by mouth once daily. 180 tablet 3 07/02/2020 01/10/2021 Discontinued Start: 12-30-2015 End: 11-08-2020 take 1 tablet by mouth twice daily Glipizide 5 MG tablet Discontinued 5 mg PO TWICE A DAY December 30, 2015 12:00am November 08, 2020 10:24am Comment on above: Take 1 tablet by lino th once daily. Take 1 tablet (10 mg ) by mouth once daily. 24 hr isosorbide mononitrate 30 mg extended release oral tablet (20 sources) Nitrate Vasodilator Start: End: take 1 tablet by mouth once daily, then take 1 tablet by mouth every twenty-four hours Isosorbide Mononitrate 60 mg Tablet Extended Release 24 Hr Discontinued 60 mg PO DAILY 0 February 04, 2022 12:00am March 11, 2022 3:01pm Start: 01-29-2022 End: 05-09-2024 take 1 tablet by mouth twice daily isosorbide mononitrate ER (IMDUR) 30 mg 24 hr tablet Indications: Essential hypertension , Coronary artery disease involving [place] coronary artery of [place] heart without angina pectoris Take 1 tablet by mouth two times a day. 180 tablet 3 05/09/2024 Active Start: 11-26-2020 End: 01-06-2022 take 1 tablet by mouth once daily, then take 1 tablet by mouth every twenty-four hours Isosorbide Mononitrate 30 mg tablet extended release 24 hr Discontinued 30 mg PO DAILY 180 November 26, 2020 4:06pm January 06, 2022 10:02am Start: 11-11-2020 End: 11-26-2020 take 1 tablet by mouth twice daily, then take 1 tablet by mouth every twenty-four hours Isosorbide Mononitrate 30 mg tablet extended release 24 hr Discontinued 30 mg PO TWICE A DAY 180 November 11, 2020 4:00pm November 26, 2020 4:07pm Start: 10-25-2020 End: 03-11-2022 Isosorbide Mononitrate 30 mg tablet extended release 24 hr Discontinued 60 mg PO DAILY 180 3 January 06, 2022 10:01am March 11, 2022 2:36pm Start: 10-23-2020 End: 11-11-2020 take 1 tablet by mouth once daily, then take 1 tablet by mouth every twenty-four hours Isosorbide Mononitrate 30 mg Tablet Extended Release 24 Hr Discontinued 30 mg PO DAILY 30 0 October 23, 2020 12:00am November 11, 2020 4:01pm Comment on above: Take 1 tablet by lino th once daily. Take 1 tablet by lino th twice daily. Take 1 tablet by lino th two times a day. metFORMIN hydrochloride 1000 mg oral tablet (20 sources) Biguanide Start: 07-04-2021 End: 05-09-2024 take 1 tablet by mouth once daily at dinner metFORMIN (GLUCOPHAGE) 1,000 mg tablet Indications: Type 2 diabetes mellitus without complication, without long-term current use of insulin (HCC) Take 1 tablet by mouth daily with dinner. 90 tablet 3 05/09/2024 Active Start: 03-18-2021 End: 09-30-2021 Metformin 1,000 mg tablet Discontinued 1500 mg PO DAILY March 18, 2021 9:28am September 30, 2021 9:37am Start: 03-18-2021 End: 09-30-2021 take 1500 mg by mouth once daily Metformin Discontinue d 1500 MG PO DAILY March 18, 2021 9:28am September 30, 2021 9:37am Start: 11-26-2020 End: 03-18-2021 take 1 tablet by mouth once daily Metformin 1,000 mg tablet Discontinued 1000 mg PO DAILY November 26, 2020 2:58pm March 18, 2021 9:31am Start: 11-08-2020 End: 11-26-2020 Metformin 1,000 mg tablet Discontinued 1500 mg PO DAILY November 08, 2020 12:00am November 26, 2020 3:00pm Start: 11-08-2020 End: 11-26-2020 take 1500 mg by mouth once daily Metformin Discontinue d 1500 MG PO DAILY November 08, 2020 12:00am November 26, 2020 3:00pm Start: 04-23-2020 End: 01-10-2021 take 1 tablet by mouth twice daily Metformin 1,000 mg Tablet Discontinued 1000 mg PO TWICE A DAY October 20, 2020 12:00am November 08, 2020 10:22am diabetes On Hold: Resume on 10/27/20. Start: 12-30-2015 End: 11-08-2020 take 2 tablets by mouth twice daily at mealtime Metformin 500 MG tablet Discontinued 1000 mg PO TWICE DAILY WITH MEALS December 30, 2015 12:00am November 08, 2020 10:22am diabetes Start: 12-30-2015 End: 11-08-2020 take 1000 mg by mouth twice daily at mealtime Metformin Discontinued 1000 MG PO TWICE DAILY WITH MEALS December 30, 2015 12:00am November 08, 2020 10:22am Comment on above: Take 1 tablet by lino th daily with dinner. mupirocin 0.02 mg/mg topical ointment (2 sources) RNA Synthetase Inhibitor Antibacterial Start: 09-13-19 End: 09-20-19 mupirocin (BACTROBAN) 2 % ointment Apply to affected area three times a day for 7 days. 15 g 09/12/2024 09/19/2024 Active pantoprazole 40 mg delayed release oral tablet (20 sources) Proton Pump Inhibitor Start: 08-23-19 End: 05-09-19 take 1 tablet by mouth once daily before breakfast pantoprazole DR (PROTONIX) 40 mg tablet Indications: Generalized abdominal pain Take 1 tablet by mouth daily before breakfast. Take on empty stomach, 1/2 hr before meal. 90 tablet 3 05/09/2024 Active Comment on above: Take 1 tablet by lino th daily before breakfast. Take on empty stomach, 1/2 hr before meal. polyethylene glycol 3350 33726 mg powder for oral solution (20 sources) Osmotic Laxative Start: 02-26-20 polyethylene glycol 3350 (MIRALAX) 17 gram/dose powder Take 289 g by mouth once daily. Dissolve dose in 4 - 8 ounces of liquid and take as directed. 17 g 2 02/25/2021 Active Comment on above: Take 289 g by mouth once daily. Dissolve dose in 4 - 8 ounces of liquid and take as directed. simethicone 125 mg oral capsule (3 sources) Start: 03-20-20 take 1 capsule by mouth once as needed Simethicone (Gas-X Extra Strength) 125 mg capsule Active 125 mg PO ONCE as needed March 20, 2024 1:00am Thyroid (Pork) ([place] Thyroid) 60 mg tablet (11 sources) Start: 03-20-20 Thyroid (Pork) ([place] Thyroid) 60 mg tablet Active 0 PO DAILY March 20, 2024 10:41am thyroid 120 mg 5 days a week & 60 mg tue and angela orally daily; Start: 03-20-2024 Thyroid (Pork) ([place] Thyroid) 60 mg tablet Active 0 PO DAILY March 20, 2024 10:41am 120 mg 5 days a week & 60 mg tue and angela orally daily; Start: 10-16-2022 End: 10-16-2022 take 1 tablet by mouth once daily Thyroid (Pork) ([place] Thyroid) 60 mg tablet Discontinued 60 mg PO DAILY October 16, 2022 12:00am October 16, 2022 8:24am Start: 10-16-2022 End: 10-16-2022 take 1 tablet by mouth once daily Thyroid (Pork) ([place] Thyroid) 60 mg tablet Discontinued 60 MG PO DAILY October 16, 2022 12:00am October 16, 2022 8:24am Start: 10-16-2022 End: 10-16-2022 take 1 tablet by mouth once daily Thyroid (Pork) ([place] Thyroid) 60 mg tablet Discontinued 60 MG PO DAILY October 15, 2022 11:00pm October 16, 2022 7:24am Start: 03-11-2022 End: 03-20-2024 take 1 tablet by mouth once daily Thyroid (Pork) ([place] Thyroid) 60 mg tablet Discontinued 120 mg PO DAILY March 11, 2022 2:33pm March 20, 2024 10:44am thyroid Start: 03-11-2022 End: 03-20-2024 take 1 tablet by mouth once daily Thyroid (Pork) ([place] Thyroid) 60 mg tablet Discontinued 120 mg PO DAILY March 11, 2022 2:33pm March 20, 2024 10:44am thyroid (shelter) 60 mg oral tablet (20 sources) Start: 05-04-2023 End: 05-09-2024 ARMOUR THYROID 60 mg tablet Indications: Acquired hypothyroidism Take 2 pills five days a week and 1 pill two days a week. 160 tablet 3 05/09/2024 Active Start: 01-29-2022 ARMOUR THYROID 60 mg tablet Indications: Acquired hypothyroidism Take 2 pills five days a week and 1 pill two days a week. 160 tablet 3 01/29/2022 Active Start: 07-04-2019 End: 06-30-2021 take 2 tablets by mouth once daily thyroid, pork, 60 mg Take 120 mg PO daily. 60 tablet 5 07/04/2019 06/30/2021 Discontinued Start: 03-01-2019 End: 11-08-2020 Thyroid (Pork) 120 MG tablet Discontinued 120 mg PO REXUWETHSA March 01, 2019 1:00am November 08, 2020 10:23am Start: 12-30-2015 End: 03-11-2022 take 1 tablet by mouth once daily Thyroid (Pork) ([place] Thyroid) 60 mg tablet Discontinued 120 mg PO DAILY November 26, 2020 2:59pm March 11, 2022 2:36pm thyroid Comment on above: Take 1 tablet by lino once daily. Take 2 pills five days a week and 1 pill two days a week. Take 2 pills five da ys a week and 1 pill two days a week. vitamin b12 1 mg oral tablet (20 sources) Vitamin B12 Start: 09-30-2021 take 2 tablets by mouth once daily Cyanocobalamin (Vitamin B-12) (Vitamin B-12) 1,000 mcg tablet Active 2000 ug PO DAILY September 30, 2021 12:00am Start: 03-18-2021 End: 09-30-2021 take 1 tablet by mouth once daily Cyanocobalamin (Vitamin B-12) 2,500 mcg tablet Discontinued 2500 ug PO DAILY March 18, 2021 1:00am September 30, 2021 8:39am wheat dextrin 3000 mg powder for oral solution (17 sources) Start: 09-30-2021 Wheat Dextrin (Benefiber Clear Sf (Dextrin)) 3 gram/3.5 gram powder in packet Active 1 NMA PO DAILY September 30, 2021 12:00am mix into at least 4 oz water or juice before administering Start: 09-30-2021 Wheat Dextrin (Benefiber Clear Sf (Dextrin)) 3 gram/3.5 gram powder in packet Active 1 PACKET PO DAILY September 30, 2021 12:00am mix into at least 4 oz water or juice before administering Completed/Discontinued Medications Medication Drug Class(es) Dates Sig (Normalized) Sig (Original) apixaban 2.5 mg oral tablet (19 sources) Factor Xa Inhibitor Start: 10-23-2020 End: 11-05-2020 take 1 tablet by mouth twice daily Apixaban (Eliquis) 2.5 mg Tablet Discontinued 2.5 mg PO TWICE A DAY 60 0 October 23, 2020 12:00am November 05, 2020 9:49am atorvastatin 40 mg oral tablet (19 sources) HMG-CoA Reductase Inhibitor Start: 10-23-2020 End: 11-08-2020 take 1 tablet by mouth at bedtime Atorvastatin 40 mg Tablet Discontinued 40 mg PO AT BEDTIME 30 0 October 23, 2020 12:00am November 08, 2020 10:15am carvedilol 6.25 mg oral tablet (15 sources) alpha-Adrenergic Lisa, beta-Adrenergic Lisa Start: 03-20-2024 End: 04-25-2024 take 1 tablet by mouth twice daily at mealtime Carvedilol (Coreg) 6.25 mg tablet Discontinued 6.25 mg PO TWICE A DAY 180 3 April 20, 2024 9:55am April 25, 2024 9:05am (Metoprolol stopped) must administer with a meal/food ciprofloxacin 500 mg oral tablet (19 sources) Quinolone Antimicrobial Start: 03-08-2019 End: 11-08-2020 take 1 tablet by mouth twice daily Ciprofloxacin Hcl 500 MG tablet Discontinued 500 mg PO TWICE A DAY 14 0 March 08, 2019 1:00am November 08, 2020 10:27am folic acid 0.4 mg / vitamin b12 0.5 mg oral tablet (19 sources) Vitamin B12 Start: 10-20-2020 End: 03-18-2021 Vitamin M89-Ngedh Acid 500-400 mcg Tablet Discontinued 1 {tbl} PO DAILY October 20, 2020 12:00am March 18, 2021 9:30am vitamin Start: 10-20-2020 End: 03-18-2021 take 1 tablet by mouth once daily Vitamin F01-Ibhdh Acid Discontinued 1 TABLET PO DAILY October 20, 2020 12:00am March 18, 2021 9:30am hydroCHLOROthiazide 25 mg oral tablet (19 sources) Thiazide Diuretic Start: 12-30-2015 End: 11-08-2020 take 2 tablets by mouth once daily Hydrochlorothiazide 25 MG tablet Discontinued 50 mg PO DAILY December 30, 2015 12:00am November 08, 2020 10:19am bp Start: 12-30-2015 End: 11-08-2020 take 50 mg by mouth once daily Hydrochlorothiazide Discontinued 50 MG PO DAILY December 30, 2015 12:00am November 08, 2020 10:19am lecithin 1200 mg oral capsule (20 sources) Start: 10-20-2020 End: 11-08-2020 take 1 capsule by mouth once daily Lecithin 1,200 mg Capsule Discontinued 1200 mg PO DAILY October 20, 2020 12:00am November 08, 2020 10:27am supplement Start: 03-01-2019 End: 11-08-2020 take 1 capsule by mouth once daily Lecithin, Soy 400 MG capsule Discontinued 400 mg PO DAILY March 01, 2019 1:00am November 08, 2020 10:27am supplement End: 01-10-2021 take 1 tablet by mouth once daily LECITHIN ORAL Take 1 tablet by mouth once daily. 01/10/2021 Discontinued losartan potassium 100 mg oral tablet (20 sources) Angiotensin 2 Receptor Lisa Start: 05-16-2024 End: 05-17-2024 take 1 tablet by mouth once daily losartan (COZAAR) 100 mg tablet Indications: Essential hypertension Take 1 tablet by mouth once daily. 90 tablet 3 05/16/2024 05/17/2024 Discontinued (Erroneous entry) Start: 05-04-2023 End: 05-09-2024 take 1.5 tablets by mouth once daily losartan (COZAAR) 100 mg tablet Indications: Essential hypertension Take 1.5 tablets by mouth once daily. 135 tablet 3 05/09/2024 Active Start: 04-24-2022 take 1.5 tablets by mouth once daily losartan (COZAAR) 100 mg tablet Indications: Essential hypertension Take 1.5 tablets by mouth once daily. 135 tablet 3 04/24/2022 Active Start: 05-30-2021 End: 04-24-2022 losartan (COZAAR) 100 mg tab let Indications: Essential hypertension TAKE 1 AND 1/2 TABLETS ONCEDAILY 135 tablet 3 05/30/2021 04/24/2022 Discontinued Start: 10-20-2020 Losartan 100 m g Tablet Active 150 mg PO DAILY October 20, 2020 12:00am blood pressure Start: 10-20-2020 take 150 mg by mouth once buffy y Losartan Active 150 MG PO DAILY October 20, 2020 12:00am Start: 07-01-2020 End: 05-30-2021 take 1.5 tablets by mouth once daily losartan (COZAAR) 100 mg tablet Indications: Essential hypertension Take 1.5 tablets by mouth once daily. 135 tablet 3 07/01/2020 05/30/2021 Discontinued Start: 12-30-2015 End: 11-08-2020 take 2 tablets by mouth once daily Losartan 50 MG tablet Discontinued 100 mg PO DAILY December 30, 2015 12:00am November 08, 2020 10:24am bp Start: 12-30-2015 End: 11-08-2020 take 100 mg by mouth once daily Losartan Discontinued 100 MG PO DAILY December 30, 2015 12:00am November 08, 2020 10:24am Comment on above: TAKE 1 AND 1/2 TABLE TS ONCEDAILY Take 1.5 tablets by mouth once daily. mecobalamin 1 mg sublingual tablet (19 sources) Start: 08-25-2017 End: 11-08-2020 Mecobalamin (Vitamin B12) 1,000 mcg tablet,disintegrating Discontinued 1000 ug SL daily August 25, 2017 12:00am November 08, 2020 10:27am supplement metoprolol tartrate 25 mg oral tablet (20 sources) beta-Adrenergic Lisa Start: 02-29-2024 End: 03-20-2024 Metoprolol Tartrate 25 mg tablet Discontinued 12.5 mg PO TWICE A DAY February 29, 2024 5:37pm March 20, 2024 11:29am bp Start: 10-20-2020 End: 11-08-2020 take 1 tablet by mouth once daily Metoprolol Tartrate 25 mg Tablet Discontinued 25 mg PO DAILY October 20, 2020 12:00am November 08, 2020 10:27am blood pressure Start: 07-02-2020 End: 02-29-2024 take 1 tablet by mouth twice daily Metoprolol Tartrate 25 mg tablet Discontinued 25 mg PO TWICE A DAY November 08, 2020 10:24am February 29, 2024 5:37pm bp Start: 12-30-2015 End: 11-08-2020 Metoprolol Tartrate 25 MG ta blet Discontinued 12.5 mg PO AT BEDTIME December 30, 2015 12:00am November 08, 2020 10:28am bp Start: 12-30-2015 End: 11-08-2020 take 12.5 mg by mouth at bedtime Metoprolol Tartrate Discontinued 12.5 MG PO AT BEDTIME December 30, 2015 12:00am November 08, 2020 10:28am Comment on above: Take 1 tablet by lino th twice daily. Take 1 tablet by lino th two times a day. naproxen sodium 220 mg oral tablet (19 sources) Nonsteroidal Anti-inflammatory Drug Start: End: Naproxen Sodium 220 MG tablet Discontinued 220 mg PO NEEDED as needed for Pain Or Fever March 01, 2019 1:00am November 08, 2020 10:27am thyroid,pork (ARMOUR THYROID ORAL) (8 sources) End: 2 take 2 tablets by mouth once daily in the morning thyroid,pork (ARMOUR THYROID ORAL) Take 60-65 mg by mouth once daily. Takes two tablets in the morning 0 01/29/2022 Discontinued take 2 tablets by mo uth once daily in the morning thyroid,pork (ARMOUR THYROID ORAL) Take 60-65 mg by mouth once daily. Takes two tablets in the morning 0 Active Comment on above: Take 60-65 mg by lino th once daily. Takes two tablets in the morning Vitamin B Complex (16 sources) Start: 03-01-2019 End: 11-08-2020 Vitamin B Complex Discontinued 1 EACH PO DAILY March 01, 2019 11:06am November 08, 2020 10:26am Start: 03-01-2019 End: 11-08-2020 Vitamin B Complex Discontinu ed 1 EACH PO DAILY March 01, 2019 12:00am November 08, 2020 9:26am Start: 03-01-2019 End: 11-08-2020 Vitamin B Complex Discontinu ed 1 EACH PO DAILY March 01, 2019 1:00am November 08, 2020 10:26am Vitamin B Complex 1 EACH capsule (3 sources) Start: 03-01-2019 End: 11-08-2020 Vitamin B Complex 1 EACH cap tiffanie Discontinued 1 NMA PO DAILY March 01, 2019 1:00am November 08, 2020 10:26am supplement Start: 03-01-2019 End: 11-08-2020 Vitamin B Complex 1 EACH cap tiffanie Discontinued 1 NMA PO DAILY March 01, 2019 1:00am November 08, 2020 10:26am Problems Active Problems Problem Classification Problem Date Documented Da te Episodic/Chronic Abdominal pain (20 sources) Abdominal pain - cause unknown; Translations: [Unspecified abdominal pain] Onset: 5 Episodic Acute myocardial infarction (20 sources) Myocardial infarction; Translations: [Acute myocardial infarction, unspecified] 10-25-2020 Chronic Comment on above: X3 Anxiety disorders (20 sources) Anxiety; Translations: [Anxiety disorder, unspecified] Onset: 8 01-20-2018 Chronic Cancer of bladder (19 sources) H/O: malignant neoplasm; Translations: [Personal history of malignant neoplasm of bladder] 11-25-2020 Episodic Cancer; other and unspecified primary (19 sources) History of lipoma; Translations: [Personal history of other benign neoplasm] 11-25-2020 Episodic Cardiac dysrhythmias (20 sources) Atrial fibrillation; Translations: [Unspecified atrial fibrillation] Onset: 2 Chronic Cardiac dysrhythmias (1 source) Palpitations; Translations: [Palpitations] 02-29-2024 Episodic Chronic kidney disease (20 sources) Chronic kidney disease stage 3A ; Translations: [Chronic kidney disease, stage 3a (HCC)] Onset: 3 01-29-2023 Chronic Chronic kidney disease (1 source) Chronic kidney disease; Translations: [Stage 3b chronic kidney disease (HCC)] Onset: 4 Coagulation and hemorrhagic disorders (20 sources) Thrombocytopenic disorder; Translations: [Thrombocytopenia, unspecified] Chronic Coronary atherosclerosis and other heart disease (20 sources) Coronary atherosclerosis; Translations: [Atherosclerotic heart disease of [place] coronary artery without angina pectoris] Onset: 7 Chronic Coronary atherosclerosis and other heart disease (20 sources) Patient post percutaneous transluminal coronary angioplasty; Translations: [Coronary angioplasty status] Episodic Deficiency and other anemia (14 sources) Anemia; Translations: [Anemia, unspecified] 04-29-2022 Episodic Deficiency and other anemia (7 sources) Anemia, unspecified; Translations: [Anemia, unspecified] Onset: 5 04-29-2022 Episodic Diabetes mellitus with complications (20 sources) Type 2 diabetes mellitus; Translations: [Type 2 diabetes mellitus with diabetic neuropathy, unspecified] Onset: 2 Chronic Diabetes mellitus without complication (20 sources) Diabetes mellitus; Translations: [Type 2 diabetes mellitus without complications] 06-29-2016 Chronic Disorders of lipid metabolism (20 sources) Hyperlipidemia; Translations: [Hyperlipidemia, unspecified] Onset: 9 02-06-2019 Chronic Diverticulosis and diverticulitis (19 sources) Diverticula of intestine; Translations: [Diverticulosis of intestine, part unspecified, without perforation or abscess without bleeding] 08-25-2017 Chronic Esophageal disorders (3 sources) Gastro-esophageal reflux disease with esophagitis; Translations: [Gastroesophageal reflux disease with esophagitis without hemorrhage] Chronic Esophageal disorders (1 source) Esophageal disorders; Translations: [Gastroesophageal reflux disease with esophagitis without hemorrhage] Onset: 5 Essential hypertension (20 sources) Hypertensive disorder; Translations: [Essential (primary) hypertension] Onset: 9 Chronic Gastritis and duodenitis (14 sources) Gastritis; Translations: [Gastritis, unspecified, without bleeding] 07-16-2022 Episodic Hyperplasia of prostate (20 sources) Benign prostatic hyperplasia; Translations: [Benign prostatic hyperplasia without lower urinary tract symptoms] Onset: 7 06-29-2016 Chronic Hypertension with complications and secondary hypertension (20 sources) Hypertensive emergency; Translations: [Hypertensive emergency] Chronic Malaise and fatigue (20 sources) Fatigue; Translations: [Other fatigue] Episodic Miscellaneous mental health disorders (19 sources) Chronic insomnia; Translations: [Psychophysiologic insomnia] 08-25-2017 Chronic Other aftercare (19 sources) Drug therapy finding; Translations: [Other longterm (current) drug therapy] 11-08-2020 Episodic Other aftercare (9 sources) 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; Translations: [Long-term (current) use of other medications] Onset: 5 Episodic Other aftercare (1 source) Post-discharge follow-up; Translations: [Encounter for follow-up examination after completed treatment for conditions other than malignant neoplasm] Episodic Other aftercare (2 sources) Long-term current use of amiodarone; Translations: [Other longterm (current) drug therapy] 12-14-2024 Episodic Other circulatory disease (20 sources) History of cardiomyopathy; Translations: [Personal history of other diseases of the circulatory system] 02-12-2022 Episodic Other connective tissue disease (19 sources) History of total knee arthroplasty; Translations: [Presence of unspecified artificial knee joint] 11-25-2020 Chronic Comment on above: X4 Bilateral Other connective tissue disease (19 sources) History of operative procedure on shoulder; Translations: [Presence of unspecified artificial shoulder joint] 11-25-2020 Chronic Other connective tissue disease (19 sources) H/O: musculoskeletal disease; Translations: [Personal history of other diseases of the musculoskeletal system and connective tissue] 11-25-2020 Episodic Other connective tissue disease (20 sources) Fibromyalgia; Translations: [Fibromyalgia] 06-29-2016 Episodic Other connective tissue disease (20 sources) Triggering of digit; Translations: [Trigger finger, unspecified finger] 06-29-2016 Episodic Other endocrine disorders (6 sources) Increased gastrin secretion; Translations: [Increased secretion of gastrin] 07-16-2022 Chronic Other endocrine disorders (1 source) Increased secretion of gastrin; Translations: [Abnormality of secretion of gastrin] 07-16-2022 Chronic Other gastrointestinal disorders (1 source) Heartburn; Translations: [Heartburn] Episodic Other gastrointestinal disorders (1 source) Stool finding; Translations: [Other fecal abnormalities] Episodic Other gastrointestinal disorders (12 sources) Constipation; Translations: [Constipation, unspecified] Episodic Other gastrointestinal disorders (1 source) Alteration in bowel elimination; Translations: [Change in bowel habit] Episodic Other gastrointestinal disorders (6 sources) Constipation, unspecified; Translations: [Constipation, unspecified] 04-29-2022 Episodic Other gastrointestinal disorders (2 sources) Abdominal bloating; Translations: [Abdominal distension (gaseous)] 02-01-2024 Episodic Other hereditary and degenerative nervous system conditions (20 sources) Restless legs; Translations: [Restless legs syndrome] Onset: 0 01-18-2020 Chronic Other hereditary and degenerative nervous system conditions (1 source) Restless legs syndrome; Translations: [RLS (restless legs syndrome)] Onset: 0 Chronic Other lower respiratory disease (20 sources) Dyspnea; Translations: [Shortness of breath] 11-08-2020 Episodic Other lower respiratory disease (19 sources) Acute cardiac pulmonary edema ; Translations: [Acute pulmonary edema] 02-12-2022 Episodic Other lower respiratory disease (20 sources) Multiple nodules of lung; Translations: [Other nonspecific abnormal finding of lung field] Episodic Other lower respiratory disease (19 sources) Dyspnea on exertion; Translations: [Dyspnea, unspecified] 09-30-2021 Episodic Other lower respiratory disease (8 sources) Acute pulmonary edema; Translations: [Acute edema of lung, unspecified] Episodic Other lower respiratory disease (1 source) Rib pain; Translations: [Pleurodynia] 08-22-2020 Episodic Other lower respiratory disease (1 source) Shortness of breath; Translations: [Shortness of breath] Onset: 5 Episodic Other lower respiratory disease (1 source) Dyspnea, unspecified; Translations: [Dyspnea, unspecified] Onset: 5 Episodic Other lower respiratory disease (1 source) Other forms of dyspnea; Translations: [Other forms of dyspnea] Onset: 5 Episodic Other nervous system disorders (20 sources) Neuropathy; Translations: [Polyneuropathy, unspecified] Onset: 2 Chronic Other nervous system disorders (1 source) Polyneuropathy, unspecified; Translations: [Neuropathy] Onset: 2 Chronic Other nutritional; endocrine; and metabolic disorders (20 sources) Obesity; Translations: [Other obesity due to excess calories] Onset: 2 06-30-2021 Chronic Other nutritional; endocrine; and metabolic disorders (19 sources) Obesity caused by energy imbalance; Translations: [Other obesity due to excess calories] Onset: 2 01-27-2022 Chronic Other skin disorders (18 sources) Mass of thoracic structure; Translations: [Localized swelling, mass and lump, trunk] 01-13-2022 Episodic Other skin disorders (11 sources) Localized swelling, mass and lump, trunk; Translations: [Swelling, mass, or lump in chest] Episodic Other skin disorders (1 source) Eruption; Translations: [Rash and other nonspecific skin eruption] 09-12-2024 Episodic Other skin disorders (1 source) Rash and other nonspecific skin eruption; Translations: [Rash] Onset: 5 Episodic Residual codes; unclassified (20 sources) Obstructive sleep apnea syndrome; Translations: [Obstructive sleep apnea (adult) (pediatric)] 05-02-2018 Chronic Residual codes; unclassified (3 sources) Obstructive sleep apnea (adult) (pediatric); Translations: [Obstructive sleep apnea (adult)(pediatric)] Onset: 9 Chronic Residual codes; unclassified (19 sources) History of operative procedure on elbow; Translations: [Other specified postprocedural states] 11-25-2020 Episodic Comment on above: Left elbow fracture Residual codes; unclassified (12 sources) Early satiety; Translations: [Early satiety] Episodic Residual codes; unclassified (6 sources) Early satiety; Translations: [Early satiety] 04-29-2022 Episodic Residual codes; unclassified (5 sources) Edema; Translations: [Edema, unspecified] 06-07-2023 Episodic Residual codes; unclassified (3 sources) Bilateral lower limb edema; Translations: [Localized edema] 02-01-2024 Episodic Residual codes; unclassified (1 source) Localized edema; Translations: [Bilateral leg edema] Onset: 5 Episodic Respiratory failure; insufficiency; arrest (adult) (20 sources) Acute respiratory failure; Translations: [Acute respiratory failure with hypoxia] Episodic Screening and history of mental health and substance abuse codes (2 sources) Patient encounter status; Translations: [Encounter for screening for depression] Onset: 5 08-29-2024 Episodic Thyroid disorders (20 sources) Hypothyroidism; Translations: [Hypothyroidism, unspecified] Onset: 7 06-29-2016 Chronic Thyroid disorders (20 sources) Disorder of thyroid gland; Translations: [Disorder of thyroid, unspecified] Episodic Past or Other Problems Problem Classification Problem Date Documented Date Episodic/Chronic Aortic; peripheral; and visceral artery aneurysms (20 sources) Abdominal aortic aneurysm; Translations: [Abdominal aortic aneurysm, without rupture] Onset: 06-30-2021 Resolved: 07-30-2023 06-30-2021 Chronic Cancer of bladder (20 sources) Malignant tumor of urinary bladder; Translations: [Malignant neoplasm of bladder, unspecified] Onset: 04-19-2011 Resolved: 07-30-2023 06-29-2016 Chronic Conditions associated with dizziness or vertigo (20 sources) Benign paroxysmal positional vertigo; Translations: [Benign paroxysmal vertigo, unspecified ear] Onset: 05-18-2016 05-18-2016 Episodic Other and unspecified benign neoplasm (20 sources) Benign neoplasm of ribs and/or sternum and/or clavicle; Translations: [Benign neoplasm of ribs, sternum and clavicle] Onset: 06-30-2021 06-30-2021 Episodic Other circulatory disease (11 sources) Personal history of other diseases of the circulatory system; Translations: [Other postprocedural status] Onset: 02-16-2024 Episodic Other connective tissue disease (1 source) Fibromyalgia; Translations: [Fibromyalgia] Onset: 06-29-2016 Episodic Other lower respiratory disease (20 sources) Solitary nodule of lung; Translations: [Solitary pulmonary nodule] Onset: 09-05-2020 09-05-2020 Episodic Other nutritional; endocrine; and metabolic disorders (20 sources) Body mass index 30+ - obesity; Translations: [Obesity, unspecified] Resolved: 01-27-2022 10-21-2018 Chronic Other screening for suspected conditions (not mental disorders or infectious disease) (6 sources) Serum creatinine raised; Translations: [Other specified abnormal findings of blood chemistry] Onset: 07-14-2024 06-07-2023 Episodic Rheumatoid arthritis and related disease (20 sources) Rheumatoid arthritis; Translations: [Rheumatoid arthritis, unspecified] Resolved: 07-30-2023 06-29-2016 Chronic Results Test Name Value Interpretation Reference Range Facility Absolute lymphocyte countOrd ered By: Lois Hines on 12-14-2024 Lymphocytes Auto (Unsp spec) [#/Vol] 1.54 10*3/uL 0.83-4.51 [facility] Absolute neutrophil countOrd ered By: Lois Hines on 12-14-2024 Neutrophils (Bld) [#/Vol] 3.0 10*3/uL 2.0-7.7 [facility] Anion gap in Serum or Plasma Ordered By: Lois Hines on 12-14-2024 Anion gap [Moles/Vol] 15 mmol/L 5-15 [facility] Automated lymphocyte count a s percentage of total leukocytesOrdered By: Lois Hines on 12-14-2024 Lymphocytes/100 WBC Auto (Unsp spec) 29.3 % 19- [facility] BUN/creatinine ratioOrdered By: Lois Hines on 12-14-2024 Urea nitrogen/Creatinine [Mass ratio] 11.1 mg/mg 10- [facility] Basophil percentageOrdered B y: Lois Hines on 12-14-2024 Basophils/100 WBC (Bld) 0.4 % 0-[address] [facility] Bilirubin, totalOrdered By: Lois Hines on 12-14-2024 Bilirubin [Mass/Vol] 0.48 mg/dL 0.00-1.30 [facility] CBC W/Diff, Automatedon 11-18 Absolute Lymph 1.54 X10 3/uL Normal 0.83-4.51 [facility] Comment on above: Performed By: #### L 503.7505, L501.05248, L100.0100, L500.4050, L506.0400, L501.9520 #### [facility] Laboratory [address] [place], [address] Absolute Neut 3.0 X10 3/uL Normal 2.0-7.7 [facility] Comment on above: Performed By: #### L 503.7505, L501.66172, L100.0100, L500.4050, L506.0400, L501.9520 #### [facility] [address] [place], [address] Basophils/100 WBC (Bld) 0.4 % Normal 0-[address] [facility] Comment on above: Performed By: #### L 503.7505, L501.75097, L100.0100, L500.4050, L506.0400, L501.9520 #### [facility] [address] [place], [address] Eosinophils/100 WBC (Bld) 1.1 % Normal 0-5 [facility] Comment on above: Performed By: #### L 503.7505, L501.11082, L100.0100, L500.4050, L506.0400, L501.9520 #### [facility] [address] [place], [address] Erythrocyte distribution width (RBC) [Ratio] 12.5 % Normal 11.6-14.6 [facility] Comment on above: Performed By: #### L 503.7505, L501.38404, L100.0100, L500.4050, L506.0400, L501.9520 #### [facility] [address] [place], [address] Hematocrit (Bld) [Volume fraction] 35.7 % Low 40-54 [facility] Comment on above: Performed By: #### L 503.7505, L501.23706, L100.0100, L500.4050, L506.0400, L501.9520 #### [facility] [address] [place], [address] Hemoglobin (Bld) [Mass/Vol] 12.6 g/dL Low 13.0-16.5 [facility] Comment on above: Performed By: #### L 503.7505, L501.49975, L100.0100, L500.4050, L506.0400, L501.9520 #### [facility] [address] [place], [address] IG% 0.400 Normal 0.0-0.9 [facility] Comment on above: Result Comment: IG% - Immature Granulocytes (promyelocytes, myelocytes and metamyelocytes) > 1% indicates that a LEFT SHIFT is Present. Performed By: #### L 503.7505, L501.05216, L100.0100, L500.4050, L506.0400, L501.9520 #### [facility] [address] [place], [address] Lymphocytes/100 WBC (Bld) 29.3 % Normal 19-41 [facility] Comment on above: Performed By: #### L 503.7505, L501.61873, L100.0100, L500.4050, L506.0400, L501.9520 #### [facility] [address] [place], [address] MCH (RBC) [Entitic mass] 34.3 pg High 27.0-32.0 [facility] Comment on above: Performed By: #### L 503.7505, L501.21389, L100.0100, L500.4050, L506.0400, L501.9520 #### [facility] [address] [place], [address] MCHC (RBC) [Mass/Vol] 35.3 g/dL Normal 32-36 [facility] Comment on above: Performed By: #### L 503.7505, L501.27460, L100.0100, L500.4050, L506.0400, L501.9520 #### [facility] [address] [place], [address] MCV (RBC) [Entitic vol] 97.3 fL High 80-[address] [facility] Comment on above: Performed By: #### L 503.7505, L501.56534, L100.0100, L500.4050, L506.0400, L501.9520 #### [facility] [address] [place], [address] Monocytes/100 WBC (Bld) 11.4 % High 0-[address] [facility] Comment on above: Performed By: #### L 503.7505, L501.19180, L100.0100, L500.4050, L506.0400, L501.9520 #### [facility] [address] [place], [address] Neutrophils/100 WBC (Bld) 57.4 % Normal 47-70 [facility] Comment on above: Performed By: #### L 503.7505, L501.22833, L100.0100, L500.4050, L506.0400, L501.9520 #### [facility] [address] [place], [address] Nucleated RBC (Bld) [#/Vol] 0 10*3/uL Normal 0-5 [facility] Comment on above: Performed By: #### L 503.7505, L501.66328, L100.0100, L500.4050, L506.0400, L501.9520 #### [facility] [address] [place], [address] Platelet mean volume (Bld) [Entitic vol] 10.1 fL Normal 6.2-12.0 [facility] Comment on above: Performed By: #### L 503.7505, L501.65085, L100.0100, L500.4050, L506.0400, L501.9520 #### [facility] [address] [place], [address] Platelets (Bld) [#/Vol] 215 10*3/uL Normal 150-450 [facility] Comment on above: Performed By: #### L 503.7505, L501.75999, L100.0100, L500.4050, L506.0400, L501.9520 #### [facility] [address] [place], [address] RBC (Bld) [#/Vol] 3.67 10*6/uL Low 4.6-6.2 [facility] Comment on above: Performed By: #### L 503.7505, L501.64602, L100.0100, L500.4050, L506.0400, L501.9520 #### [facility] [address] [place], [address] RDW SD 44.1 fl High 35.1-43.9 [facility] Comment on above: Performed By: #### L 503.7505, L501.80783, L100.0100, L500.4050, L506.0400, L501.9520 #### [facility] [address] [place], [address] WBC (Bld) [#/Vol] 5.3 10*3/uL Normal 4.4-11.0 [facility] Comment on above: Performed By: #### L 503.7505, L501.37505, L100.0100, L500.4050, L506.0400, L501.9520 #### [facility] [address] [place], [address] Carbon dioxide, total [Moles /volume] in Central venous bloodOrdered By: Lois Hines on 12-14-2024 CO2 [Moles/Vol] 24.6 mmol/L 21.0-32.0 [facility] Cardiology Visit Reporton Cardiology Visit Report [facility] [address] [place], [place] [address] OFFICE VISIT Date of Service: 12/14/24 MR#: [id number] Acct: [id number] Name: SALOME SHETH Rep #: [id number] : 1950 Provider: JENNY medina Age/Sex: 74/M Location: [facility] Status: Signed HPI HPI History of Present Illness Details: This is a 74-year-old white male who presents today for outpatient cardiovascular follow-up. The patient carries a history of paroxysmal atrial fibrillation which he is symptomatic with describes it as shortness of breath. He also has a history of coronary disease status post remote bypass graft surgery with a PIEDRA to the LAD and a radial graft to the first diagonal. He has a 50% proximal LAD stent lesion it is then occluded in the mid LAD and the distal LAD fills via the patent PIEDRA. The circumflex is occluded and fills with collateral flow from the left and right system. The right coronary has terminal diffuse 75% stenoses but is patent. The patient's previous angina was bilateral arm and wrist discomfort. He is not having that at this time intermittently he does have left shoulder weakness but at other times he can raise his arm without incident. Apparently he has had surgical intervention on his elbows and shoulders. The patient's EF was 50% on Echocardiogram January 2022. He was originally diagnosed with paroxysmal atrial fibrillation when he presented in 2020 with flash pulmonary edema and paroxysmal atrial fibs with rapid ventricular response. He has been maintained on amiodarone 100 mg daily. The patient is diabetic this is managed with his primary service he also has a history of hyperlipidemia he is intolerant to all meds. From a cardiac standpoint, the patient is doing well. He does acknowledge palpitations when he goes to bed at night, and lays on his left side. 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 He denies chest pain, pressure or heaviness. He does acknowledge SOB with exertion. He denies Orthopnea, and PND. He does wear his CPAP nightly. He does not have bleeding issues; no blood in urine, stool, or nosebleeds. He does acknowledge fatigue. He states he does not sleep well at night due to nightmares. He denies myalgias, or claudication. He does acknowledge BLE edema, and fullness in his upper abdomen, He does not have sudden weight gain. He denies lightheadedness, dizziness, syncopal or near syncopal episodes, and headaches. 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: No Accompanied by: Is patient in pain?: No Allergies Igcdmrm-DGJ-TiU Reductase Inhibitor (Epozwqx-Wmf-Lvl Reductase Inhibitor) Allergy (Severe, Verified 12/14/24 10:03) Severe mouth sores hydrochlorothiazide Allergy (Intermediate, Verified 12/14/24 10:03) Other Sulfa (Sulfonamide Antibiotics) Allergy (Unknown, Verified 12/14/24 10:03) Unknown levothyroxine sodium (From Synthroid) Allergy (Verified 12/14/24 10:03) mouth sores,diarrhea,stomach cramps fish oil Adverse Reaction (Severe, Verified 12/14/24 10:03) Mouth Sores apixaban (From Eliquis) Adverse Reaction (Intermediate, Verified 12/14/24 10:03) blood in stools morphine Adverse Reaction (Verified 12/14/24 10:03) Nausea/Vom/Diarrhea Medications ???Medication ???Instructions ???Recorded ???Confirmed ???Type aspirin 81 mg tablet 81 mg PO DAILY 10/20/20 12/14/24 H istory gabapentin 300 mg capsule 600 mg PO QHS nerve pain 10/20/20 12/14/24 History losartan 100 mg tablet 150 mg PO DAILY blood pressure 08/0712/14/24 History pantoprazole 40 mg tablet,delayed 40 mg PO DAILY reflux 10/20/20 History release cholecalciferol (vitamin D3) 125 125 mcg PO DAILY 03/18/21 12/14/24 History mcg (5,000 unit) tablet glipizide 10 mg tablet, extended 10 mg PO DAILY 03/18/21 12/14/24 H istory release 24 hr cyanocobalamin (vitamin B-12) 2,000 mcg PO DAILY 09/30/21 History 1,000 mcg tablet (Vitamin B-12) metformin 1,000 mg tablet 1,000 mg PO DAILY 09/30/21 5 History polyethylene glycol 3350 17 17 g PO DAILY 09/30/21 12/14/24 Hi story gram/dose oral powder (Miralax) wheat dextrin 3 gram/3.5 gram oral 1 packet PO DAILY 09/30/2112/14 History powder packet (Benefiber Clear Sugar Free(dextrin)) amlodipine 10 mg tablet 10 mg PO DAILY #30 tabs 02/04/22 0 12/14/24 Rx isosorbide mononitrate 30 mg 30 mg PO BID 03/11/22 12/14/24 His tory tablet,extended release 24 hr amiodarone 200 mg tabl (more content not included)... Normal [facility] Chest PA and Lateralon 12-14 Chest PA and Lateral [facility] Imaging Services [address] [place], [place] [address] Chest PA and Lateral MR#: [id number] Acct: [id number] Name: SALOME SHETH Rep #: [id number] : 1950 M 74 From: Preet Joseph PCP: Dr. 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 RAD/Chest PA and Lateral IMPRESSION: Upper abdominal surgical clips are again seen. Sternotomy wires and mediastinal surgical clips are again noted. Prior coronary artery stenting is seen. Partially visualized left shoulder prosthesis appears without apparent complication. No evidence of pulmonary edema. Lungs appear clear of acute disease. No pleural effusion or pneumothorax is evident. The cardiomediastinal silhouette is remarkable for a calcified and tortuous aorta. No evidence of cardiomegaly. Liio-px-esknvibb degenerative changes of the visualized spine noted, along with thoracic DISH. No evidence of acute cardiopulmonary disease. Reading Location: [place] [address] CC: DAMARIS-Princess Hines; Dr. 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, [address] Albumin/Globulin [Mass ratio] 1.5 {ratio} Normal 0.9-2.4 [facility] Comment on above: Performed By: #### L 503.7505, L501.40680, L100.0100, L500.4050, L506.0400, L501.9520 #### [facility] [address] [place], [address] ALK PHOS 78 U/L Normal 40-129 [facility] Comment on above: Performed By: #### L 503.7505, L501.14661, L100.0100, L500.4050, L506.0400, L501.9520 #### [facility] [address] [place], [address] ALT [Catalytic activity/Vol] 19 U/L Normal <=46 [facility] Comment on above: Performed By: #### L 503.7505, L501.88271, L100.0100, L500.4050, L506.0400, L501.9520 #### [facility] [address] [place], [address] AST [Catalytic activity/Vol] 26 U/L Normal <=37 [facility] Comment on above: Performed By: #### L 503.7505, L501.32541, L100.0100, L500.4050, L506.0400, L501.9520 #### [facility] [address] [place], [address] Bilirubin [Mass/Vol] 0.48 mg/dL Normal 0.00-1.30 [facility] Comment on above: Performed By: #### L 503.7505, L501.20314, L100.0100, L500.4050, L506.0400, L501.9520 #### [facility] [address] [place], [address] BUN/CRE 11.1 RATIO Normal 10-20 [facility] Comment on above: Performed By: #### L 503.7505, L501.74922, L100.0100, L500.4050, L506.0400, L501.9520 #### [facility] [address] [place], [address] Calcium [Mass/Vol] 9.9 mg/dL Normal 7.6-11.0 [facility] Comment on above: Performed By: #### L 503.7505, L501.24220, L100.0100, L500.4050, L506.0400, L501.9520 #### [facility] [address] [place], [address] Chloride [Moles/Vol] 99 mmol/L Normal 98-108 [facility] Comment on above: Performed By: #### L 503.7505, L501.11748, L100.0100, L500.4050, L506.0400, L501.9520 #### [facility] [address] [place], [address] CO2 [Moles/Vol] 24.6 mmol/L Normal 21.0-32.0 [facility] Comment on above: Performed By: #### L 503.7505, L501.18143, L100.0100, L500.4050, L506.0400, L501.9520 #### [facility] [address] [place], [address] Creatinine [Mass/Vol] 2.39 mg/dL High 0.70-1.20 [facility] Comment on above: Performed By: #### L 503.7505, L501.66441, L100.0100, L500.4050, L506.0400, L501.9520 #### [facility] [address] [place], [address] GAP 15 Normal 5-15 [facility] Comment on above: Performed By: #### L 503.7505, L501.89908, L100.0100, L500.4050, L506.0400, L501.9520 #### [facility] [address] [place], [address] GFR/1.73 sq M.predicted among non-blacks MDRD (S/P/Bld) [Vol rate/Area] 28 mL/min/{1.73_m2} Low >[address] [facility] Comment on above: Result Comment: mL/m in/1.73m2 CKD-EPI Creatinine Equation (2020) Performed By: #### L 503.7505, L501.00255, L100.0100, L500.4050, L506.0400, L501.9520 #### [facility] [address] [place], [address] Globulin (S) [Mass/Vol] 2.9 g/dL Normal 2.2-4.2 [facility] Comment on above: Performed By: #### L 503.7505, L501.63729, L100.0100, L500.4050, L506.0400, L501.9520 #### [facility] [address] [place], [address] Glucose [Mass/Vol] 152 mg/dL High 70-99 [facility] Comment on above: Performed By: #### L 503.7505, L501.17625, L100.0100, L500.4050, L506.0400, L501.9520 #### [facility] [address] [place], [address] Potassium [Moles/Vol] 4.5 mmol/L Normal 3.3-5.1 [facility] Comment on above: Performed By: #### L 503.7505, L501.61823, L100.0100, L500.4050, L506.0400, L501.9520 #### [facility] [address] [place], [address] Sodium [Moles/Vol] 139 mmol/L Normal 133-145 [facility] Comment on above: Performed By: #### L 503.7505, L501.41077, L100.0100, L500.4050, L506.0400, L501.9520 #### [facility] [address] [place], [address] T PROT 7.3 g/dL Normal 5.9-8.4 [facility] Comment on above: Performed By: #### L 503.7505, L501.70205, L100.0100, L500.4050, L506.0400, L501.9520 #### [facility] [address] [place], [address] Urea nitrogen [Mass/Vol] 27 mg/dL High 4-19 [facility] Comment on above: Performed By: #### L 503.7505, L501.89830, L100.0100, L500.4050, L506.0400, L501.9520 #### [facility] [address] [place], [address] Eosinophil percentageOrdered By: Lois Hines on 12-14-2024 Eosinophils/100 WBC (Bld) 1.1 % 0-5 [facility] Erythrocyte distribution wid th ratioOrdered By: Lois Hines on 12-14-2024 Erythrocyte distribution width (RBC) [Ratio] 12.5 % 11.6-14.6 [facility] Erythrocyte distribution wid th standard deviationOrdered By: Lois Hines on 12-14-2024 Erythrocyte distribution width (RBC) [Ratio] 44.1 fl High 35.1-43.9 [facility] Free T3on 12-14-2024 Free T3 [Mass/Vol] 2.7 pg/mL Normal 2.18-3.98 [facility] Comment on above: Performed By: #### L 503.7505, L501.17585, L100.0100, L500.4050, L506.0400, L501.9520 #### [facility] [place] [address] [place], [address] Free [id number] By: Lois martin on 12-14-2024 Free T3 [Mass/Vol] 2.7 pg/mL 2.18-3.98 [facility] Glomerular filtration rate ( GFR) estimation/1.73 sq m using serum, plasma, or whole bOrdered By: Lois Hines on 12-14-2024 GFR/1.73 sq M.predicted among non-blacks MDRD (S/P/Bld) [Vol rate/Area] 28 mL/min/{1.73_m2} Low >[address] [facility] Comment on above: mL/min/1.73m2 CKD-EP I Creatinine Equation (2020) Hematocrit Auto (Bld) [Volum e fraction]Ordered By: Lois Hines on 12-14-2024 Hematocrit (Bld) [Volume fraction] 35.7 % Low 40-54 [facility] Hemoglobin measurementOrdere d By: Lois Hines on 12-14-2024 Hemoglobin (Bld) [Mass/Vol] 12.6 g/dL Low 13.0-16.5 [facility] Immature granulocytes/100 WB C Auto (Bld)Ordered By: Lois Hines on 12-14-2024 Immature granulocytes/100 WBC (Bld) 0.400 % 0.0-0.9 [facility] Comment on above: IG% - Immature Granu locytes (promyelocytes, myelocytes and metamyelocytes) > 1% indicates that a LEFT SHIFT is Present. Laboratory - Chemistry and C hemistry - challengeOrdered By: Lois Hines on 12-14-2024 AST [Catalytic activity/Vol] 26 U/L <38 [facility] MCV (mean corpuscular volume ) determinationOrdered By: Lois Hines on 12-14-2024 MCV (RBC) [Entitic vol] 97.3 fL High 80-[address] [facility] Mean corpuscular hemoglobin (MCH) determinationOrdered By: Lois Hines on 12-14-2024 MCH (RBC) [Entitic mass] 34.3 pg High 27.0-32.0 [facility] Mean corpuscular hemoglobin concentration (MCHC) determinationOrdered By: Lois Hines on 12-14-2024 MCHC (RBC) [Mass/Vol] 35.3 g/dL 32-36 [facility] Mean platelet volume determi nationOrdered By: Lois Hines on 12-14-2024 Platelet mean volume (Bld) [Entitic vol] 10.1 fL 6.2-12.0 [facility] Monocyte percentageOrdered B y: Lois Hines on 12-14-2024 Monocytes/100 WBC (Bld) 11.4 % High 0-[address] [facility] Natriuretic peptide.B prohor karel N-Terminal [Mass/volume] in Serum or PlasmaOrdered By: Lois Hines on 12-14-2024 Natriuretic peptide.B prohormone N-Terminal [Mass/Vol] 688 pg/mL <1800 [facility] Comment on above: Heart Failure Unlike ly: < 300 pg/mLHeart Failure Likely< 50 Years: > 450 pg/mL50-75 Years: > 900 pg/mL>75 Years: > 1800 pg/mL Neutrophil percentageOrdered By: Lois Hines on 12-14-2024 Neutrophils/100 WBC (Bld) 57.4 % 47-70 [facility] Nucleated red blood cell per centageOrdered By: Lois Hines on 12-14-2024 Nucleated RBC/100 WBC (Bld) [Ratio] 0 % 0-5 [facility] Platelet countOrdered By: Abraham Hines on 12-14-2024 Platelets (Bld) [#/Vol] 215 10*3/uL 150-450 [facility] Potassium measurement (mass/ volume)Ordered By: Lois Hines on 12-14-2024 Potassium (Unsp spec) [Mass/Vol] 4.5 mmol/L 3.3-5.1 [facility] Pro- Brain NATRIURETIC PEPTI Juliana 12-14-2024 Natriuretic peptide B (Bld) [Mass/Vol] 688 pg/mL Normal <=1800 [facility] Comment on above: Result Comment: Hear t Failure Unlikely: < 300 pg/mL Heart Failure Likely < 50 Years: > 450 pg/mL 50-75 Years: > 900 pg/mL >75 Years: > 1800 pg/mL Performed By: #### L 503.7505, L501.22071, L100.0100, L500.4050, L506.0400, L501.9520 #### [facility] [address] [place], [address] RBC Auto (Bld) [#/Vol]Ordere d By: Lois Hines on 12-14-2024 RBC (Bld) [#/Vol] 3.67 10*6/uL Low 4.6-6.2 [facility] Serum creatinine measurement (mass/volume)Ordered By: Lois Hines on 12-14-2024 Creatinine [Mass/Vol] 2.39 mg/dL High 0.70-1.20 [facility] Serum globulin measurementOr dered By: Lois Hines on 12-14-2024 Globulin (S) [Mass/Vol] 2.9 g/dL 2.2-4.[address] [facility] Serum glucose measurement (m ass/volume)Ordered By: Lois Hines on 12-14-2024 Glucose [Mass/Vol] 152 mg/dL High 70-99 [facility] Serum or plasma alanine honeycutt otransferase (ALT) measurementOrdered By: Lois Hines on 12-14-2024 ALT [Catalytic activity/Vol] 19 U/L <47 [facility] Serum or plasma albumin kaylin urement (mass/volume)Ordered By: Lois Hines on 12-14-2024 Albumin [Mass/Vol] 4.4 g/dL 3.4-4.8 [facility] Serum or plasma albumin/glob ulin mass ratioOrdered By: Lois Hines on 12-14-2024 Albumin/Globulin [Mass ratio] 1.5 {ratio} 0.9-2.4 [facility] [facility] Serum or plasma alkaline juan sphatase measurementOrdered By: Lois Hines on 12-14-2024 ALP [Catalytic activity/Vol] 78 U/L 40-129 [facility] Serum or plasma calcium kaylin urement (mass/volume)Ordered By: Lois Hines on 12-14-2024 Calcium [Mass/Vol] 9.9 mg/dL 7.6-11.0 [facility] Serum or plasma urea nitroge n measurement (mass/volume)Ordered By: Lois Hines on 12-14-2024 Urea nitrogen [Mass/Vol] 27 mg/dL High 4-19 [facility] Sodium levelOrdered By: Astrid Hines on 12-14-2024 Sodium [Moles/Vol] 139 mmol/L 133-145 [facility] T4 Free Directon 12-14-2024 T4 FREE DIRECT 0.90 ng/dL Normal 0.76-1.46 [facility] Comment on above: Performed By: #### L 503.7505, L501.47907, L100.0100, L500.4050, L506.0400, L501.9520 ####[facility] [address] [place], [address] T4 freeOrdered By: Lois martin on 12-14-2024 Free T4 [Mass/Vol] 0.90 ng/dL 0.76-1.46 [facility] TSH DL <= 0.005 mIU/L QnOrde red By: Lois Hines on 12-14-2024 TSH Qn 3.820 uIU/mL 0.300-4.20 0 [facility] Thyroid Stim Hormone (TSH)on 12-14-2024 TSH 3.820 uIU/mL Normal 0.300-4.20 0 [facility] Comment on above: Performed By: #### L 503.7505, L501.87661, L100.0100, L500.4050, L506.0400, L501.9520 #### [facility] [address] [place], [address] Total proteinOrdered By: Se Hines on 12-14-2024 Protein [Mass/Vol] 7.3 g/dL 5.9-8.4 [facility] White blood cell (WBC) count Ordered By: Lois Hines on 12-14-2024 WBC (Bld) [#/Vol] 5.3 10*3/uL 4.4-11.0 [facility] CNOVon 09-12-2024 CNOV Office Visit (UCWSTR ) -------- SALOME SHETH ([id number]) 1950 M Date Time Provider Department 09/12/24 11:00 AM DAYO GRAF [facility] During your visit today, we recorded the following information about you: Temperature Pulse Respiration Blood pressure 98.7 degrees 88/minute 16/minute 128/64 Weight 105.7 kg Dayo Graf PA 09/12/2024 11:17 AM Signed [facility] Subjective Salome Sheth is a 74 year old male. Patient presents with: Rash: Rash on left wrist x 1 week HPI Rash: - Rash on left wrist began last . - Initially presented as four clear, blister-like lesions. - New lesions have since appeared, including one above a vein. - Painful to touch, but not otherwise. - Has tried various topical treatments, including drawing salve, pink salve, and cortisone cream, with no improvement. - Denies known allergies to antibiotics; allergic to morphine. - Spends time outdoors, frequently cutting grass and around pine trees. - Denies presence of mice in the house; initially thought the rash might be a mouse bite or bee sting. PAST MEDICAL HISTORY Diagnosis Date AAA (abdominal aortic aneurysm) conflicting results Anxiety Bladder cancer ([facility]) [address] Foreman BPH (benign prostatic hyperplasia) BPPV (benign paroxysmal positional vertigo) Carpal tunnel syndrome s/p release Central sleep apnea Coronary artery disease s/p CABG. Dr. Varela Diabetes mellitus, type II (HCC) Diabetic retinopathy (HCC) OU Diverticulosis Fibromyalgia Hard of hearing Hypertension Hypothyroidism Insomnia Left elbow fracture Lipoma of anterior chest wall s/p resection Myocardial infarction (HCC) x3 Obesity (BMI 30-39.9) PRAKASH (obstructive sleep apnea) on CPAP Pulmonary nodules conflicting studies Restless leg syndrome Rheumatoid arthritis Trigger finger PAST SURGICAL HISTORY Procedure Laterality Date ARTHRP KNE CONDYLEANDPLATU MEDIALANDLAT COMPARTMENTS Bilateral x4 each CABG (3) VEIN GRAFTS AND ARTERIAL GRAFT(S) 2003 CARPAL TUNNEL Bilateral CHOLECYSTECTOMY open COLONOSCOPY 07/14/2021 No repeat due to age. COLONOSCOPY N/A 07/01/2022 EGD W/O [facility] SPEC VARICIES INJ 07/14/2021 EGD W/O [facility] SPEC VARICIES INJ N/A 07/01/2022 PAST SURGICAL HISTORY OF Left Reverse shoulder replacement PAST SURGICAL HISTORY OF Bilateral rotator cuff tear repair PAST SURGICAL HISTORY OF Left elbow fracture repair PAST SURGICAL HISTORY OF Right elbow-bone chip repair PAST SURGICAL HISTORY OF Left trigger finger release PAST SURGICAL HISTORY OF Left tumor resection from rib PAST SURGICAL HISTORY OF prostate surgery PAST SURGICAL HISTORY OF 03/08/2019 TURP, diagnostic cysto ALLERGIES Hctz [Hydrochlorothiazide], Liothyronine, Morphine, Uajdkpv-Shc-Lxx Reductase Inhibitors, Sulfa (Sulfonamide Antibiotics), and Synthroid [Levothyroxine] MEDICATIONS doxycycline monohydrate 100 mg tablet Take 1 tablet by mouth two times a day for 5 days. mupirocin (BACTROBAN) 2 % ointment Apply to affected area three times a day for 7 days. amLODIPine (NORVASC) 10 mg tablet Take 1 tablet by mouth once daily. amiodarone (PACERONE) 200 mg tablet Taking 0.5 tab at bedtime ARMOUR THYROID 60 mg tablet Take 2 pills five days a week and 1 pill two days a week. furosemide (LASIX) 40 mg tablet Take 1 tablet by mouth once daily. gabapentin (NEURONTIN) 300 mg capsule Take 1 capsule by mouth two times a day for 180 days. glipiZIDE (GLUCOTROL) 10 mg tablet Take 1 tablet (10 mg) by mouth once daily. isosorbide mononitrate ER (IMDUR) 30 mg 24 hr tablet Take 1 tablet by mouth two times a day. losartan (COZAAR) 100 mg tablet Take 1.5 tablets by mouth once daily. metFORMIN (GLUCOPHAGE) 1,000 mg tablet Take 1 tablet by mouth daily with dinner. pantoprazole DR (PROTONIX) 40 mg tablet Take 1 tablet by mouth daily before breakfast. Take on empty stomach, 1/2 hr before meal. CPAP Initiate CPAP @ 12 cm of water with humidification. Mask (per patient preference) optional chin strap (if indicated) , filters, tubing, humidifier and lifetime supplies. polyethylene glycol 3350 (MIRALAX) 17 gram/dose powder Take 289 g by mouth once daily. Dissolve dose in 4 - 8 ounces of liquid and take as directed. acetaminophen (TYLENOL) 325 mg tablet 650 mg every 4 hours as needed. aspirin, enteric coated (ASPIRIN, ENTERIC COATED) 81 mg EC tablet Take 81 mg by mouth once daily. cholecalciferol (VITAMIN D-3) 5,000 unit tab Take 5,000 Units by mouth once daily. cyanocobalamin, vitamin B-12, (VITAMIN B-12 ORAL) Take by mouth once daily. 2000 mg FAMILY HISTORY Problem Relation Age of Onset Psychiatry Mother suicide Psychiatry Father suicide Heart Attack Sister Diabetes Brother type I other (celiac disease) Brother Alcohol/Drug Brother Blood Clots Brother Alzheimer (more content not included)... Normal [facility] HSV+VZV DNA DAMON+probe Ql (Un sp spec)on 09-12-2024 HSV 1 DNA DAMON+probe Ql (Unsp spec) Not detected Normal Not Detected [facility] Comment on above: Order Comment: Speci men Type: SWABOrdering Facility: [facility] Address: [address] [place] [address] Performed By: #### 3 3027-4 ####[facility]CL[facility] [id number] [place] [address] [place] HSV 2 DNA DAMON+probe Ql (Unsp spec) Not detected Normal Not Detected [facility] Comment on above: Order Comment: Speci men Type: SWABOrdering Facility: [facility] Address: [address] [place] [address] Performed By: #### 3 3027-4 ####[facility]CL[facility] [id number] [place] [address] [place] VZV DNA DAMON+probe Ql (Unsp spec) Detected Abnormal Not Detected [facility] Comment on above: Order Comment: Speci men Type: SWABOrdering Facility: [facility] Address: [address] [place] [address] Performed By: #### 3 3027-4 ####[facility]CL[facility] [id number] [place] [address] [place] CNOVon 08-29-2024 CNOV Office Visit (FAMPWS ) -------- SALOME SHETH ([id number]) 1950 M Date Time Provider Department 08/29/24 8:00 AM [facility] During your visit today, we recorded the following information about you: Pulse Respiration Blood pressure Weight 56/minute 18/minute 128/66 106.5 kg Allan Rosario MD 08/29/2024 9:03 AM Signed Chief Complaint Patient presents with: F/U 6 Month HPI Salome Sheth is a 74 year old male who presents here today for 6 month follow up. here for visit with pt. [facility]. No bowel, Gi issues, uses Miralax and Benefiber daily. Stomach has improved, no longer drinking. Follows with Urologist Dr. Foreman annually. Denies any urinary issues. Denies nocturia often. GERD: Controlled on Protonix 40 mg daily. CKD: monitored with labs. Stable. Thyroid: Taking Pork Thyroid 60-65 mg 2 pills once a day. Denies any missed dosages. PRAKASH: Is on a CPAP at night, which is working well for him. Getting supplies through [employer]. DM: Does not check BS at home. Denies any low blood sugars. Has neuropathy in feet which is controlled on Gabapentin 300 mg 2 pills at bedtime. Has upcoming appt with [facility]. [facility]. Is taking Metformin 1,000 mg daily and Glucotrol 10 mg daily. Edema: scarlett foot and ankle; stable on Lasix 40 mg daily taking 1.5 tabs daily. states it's controlled. Afib - Overall stable. Feels if he lays on his left side this may trigger a fast heart rate. HTN/Hyperlipidemia/CAD: Follows with Cardio at [facility]. Denies checking BP at home. No chest pains or SOB. Notes dizziness but states it's related to vertigo, that tends to be worse during the spring. Has ring that he wears ([employer]), that tells his HR, sleeping patters, and breathing. Is taking Amiodarone 200 mg half pill daily, Lopressor 25 mg 1 pill BID, Lasix 40 mg daily, Imdur 30 mg BID and Losartan 100 mg 1.5 tablets daily. Was previously going to [employer] to exercise 6 days a week, but this seemed to cause increased pain and inflammation, so he stopped going. Thinking about backing down on frequency. Pain: Chronic neuropathy, RLS, and Fibro: Taking Gabapentin 300 mg 2 pills at night and Tylenol 2 pills at night. Was referred to Podiatry for neuropathy pain, they feel it's related to his back. [facility] upcoming [facility]. Has constant nightmares at night. Sleep isn't the greatest. Uses Tylenol PM. Asking about losing hair on his legs, now occurring on his body. The body hair loss has noticed over the past month. Asking if this is something that is medication related. - Has Adv Dir/Living will scanned into chart. Depression screening, negative. RSVShingles through Pharmacy due to Insurance. Had [facility] in the [facility]. Past medical history, appointments, medications, allergies reviewed. Previous Medical History PAST MEDICAL HISTORY Diagnosis Date AAA (abdominal aortic aneurysm) (HCC) conflicting results Anxiety Bladder cancer (HCC) [address] Foreman BPH (benign prostatic hyperplasia) BPPV (benign paroxysmal positional vertigo) Carpal tunnel syndrome s/p release Central sleep apnea Coronary artery disease s/p CABG. Dr. Varela Diabetes mellitus, type II (HCC) Diabetic retinopathy (HCC) OU Diverticulosis Fibromyalgia Hard of hearing Hypertension Hypothyroidism Insomnia Left elbow fracture Lipoma of anterior chest wall s/p resection Myocardial infarction (HCC) x3 Obesity (BMI 30-39.9) PRAKASH (obstructive sleep apnea) on CPAP Pulmonary nodules conflicting studies Restless leg syndrome Rheumatoid arthritis (HCC) Trigger finger Previous Surgical History PAST SURGICAL HISTORY Procedure Laterality Date ARTHRP KNE CONDYLEANDPLATU MEDIALANDLAT COMPARTMENTS Bilateral x4 each CABG (3) VEIN GRAFTS AND ARTERIAL GRAFT(S) 2003 CARPAL TUNNEL Bilateral CHOLECYSTECTOMY open COLONOSCOPY 07/14/2021 No repeat due to age. COLONOSCOPY N/A 07/01/2022 EGD W/O [facility] SPEC VARICIES INJ 07/14/2021 EGD W/O [facility] SPEC VARICIES INJ N/A 07/01/2022 PAST SURGICAL HISTORY OF Left Reverse shoulder replacement PAST SURGICAL HISTORY OF Bilateral rotator cuff tear repair PAST SURGICAL HISTORY OF Left elbow fracture repair PAST SURGICAL HISTORY OF Right elbow-bone chip repair PAST SURGICAL HISTORY OF Left trigger finger release PAST SURGICAL HISTORY OF Left tumor resection from rib PAST SURGICAL HISTORY OF prostate surgery PAST SURGICAL HISTORY OF 03/08/2019 TURP, diagnostic cysto Family History FAMILY HISTORY Problem Relation Age of Onset Psychiatry Mother suicide Psychiatry Father suicide Heart Attack Sister Diabetes Brother type I other (celiac disease) Brother Alcohol/Drug Brother Blood Clots Brother Alzheimer's Disease Br (more content not included)... Normal [facility] ALBUMIN/CREATININE RATIO, UR INEon 08-22-2024 Albumin DL <= 20 mg/L (U) [Mass/Vol] 26.5 mg/L Normal [facility] Comment on above: Order Comment: Speci men Type: URINE SPECIMENOrdering Facility: [facility] Address: [address] [place] [address] Performed By: #### U ACR ####[facility]CL[facility] [id number] [place] [address] [place] Albumin/Creatinine (U) [Mass ratio] 64 mg/g High <30 [facility] Comment on above: Order Comment: Chayoi men Type: URINE SPECIMENOrdering Facility: [facility] Address: [address] [place] [address] Result Comment: Adul t Male and Female Nephrotic Criteria: <30 mg/g is considered normal to mildly increased 30-300 mg/g is considered moderately increased >300 mg/g is considered severely increased KDIGO. (2013). KDIGO 2012 Clinical Practice Guideline for the Evaluation and Management of Chronic Kidney Disease. Official Journal of the International Society of Nephrology, 3(1), 1-150. Performed By: #### U ACR ####[facility]CL[facility] [id number] [place] [address] [place] Creatinine (U) [Mass/Vol] 41.2 mg/dL Normal 20.0-300.0 [facility] Comment on above: Order Comment: Speci men Type: URINE SPECIMENOrdering Facility: [facility] Address: [address] [place] [address] Performed By: #### U ACR ####[facility]CL[facility] [id number] [place] [address] [place] CBC W Auto Differential pane l (Bld)on 08-22-2024 Basophils (Bld) [#/Vol] 0.04 10*3/uL Normal <0.11 [facility] Comment on above: Order Comment: Speci men Type: BLOOD SPECIMENOrdering Facility: [facility] Address: [address] [place] [address] Performed By: #### 5 7021-8 ####[facility]CL[facility] [id number] [place] [address] [place] Basophils/100 WBC (Bld) 0.7 % Normal [facility] Comment on above: Order Comment: Speci men Type: BLOOD SPECIMENOrdering Facility: [facility] Address: [address] [place] [address] Performed By: #### 5 7021-8 ####[facility]CL[facility] [id number] [place] [address] [place] Differential cell count method Nom (Bld) Auto Normal [facility] Comment on above: Order Comment: Speci men Type: BLOOD SPECIMENOrdering Facility: [facility] Address: [address] [place] [address] Performed By: #### 5 7021-8 ####[facility]IA [id number] [place] [address] [place] Eosinophils (Bld) [#/Vol] 0.05 10*3/uL Normal <0.46 [facility] Comment on above: Order Comment: Speci men Type: BLOOD SPECIMENOrdering Facility: [facility] Address: [address] [place] [address] Performed By: #### 5 7021-8 ####[facility]CLIA [id number] [address] [place] [address] [place] Eosinophils/100 WBC (Bld) 0.9 % Normal [facility] Comment on above: Order Comment: Speci men Type: BLOOD SPECIMENOrdering Facility: [facility] Address: [address] [place] [address] Performed By: #### 5 7021-8 ####[facility]CL[facility] [id number] [address], [place] [address] [place] Erythrocyte distribution width (RBC) [Ratio] 13.6 % Normal 11.5-15.0 [facility] Comment on above: Order Comment: Speci men Type: BLOOD SPECIMENOrdering Facility: [facility] Address: [address] [place] [address] Performed By: #### 5 7021-8 ####[facility]CL[facility] [id number] [address], [place] [address] [place] Hematocrit (Bld) [Volume fraction] 38.6 % Low 39.0-51.0 [facility] Comment on above: Order Comment: Speci men Type: BLOOD SPECIMENOrdering Facility: [facility] Address: [address] [place] [address] Performed By: #### 5 7021-8 ####[facility]CLIA [id number] [address], [place] [address] [place] Hemoglobin (Bld) [Mass/Vol] 13.4 g/dL Normal 13.0-17.0 [facility] Comment on above: Order Comment: Speci men Type: BLOOD SPECIMENOrdering Facility: [facility] Address: [address] [place] [address] Performed By: #### 5 7021-8 ####[facility]CLIA [id number] [address], [facility]95 [place] Immature granulocytes (Bld) [#/Vol] 10*3/uL Normal <0.10 [facility] Comment on above: Order Comment: Speci men Type: BLOOD SPECIMENOrdering Facility: [facility] Address: [address] [place] [address] Performed By: #### 5 7021-8 ####[facility] LABCLIA [id number] [place] [address] [place] Immature granulocytes/100 WBC (Bld) 0.2 % Normal [facility] Comment on above: Order Comment: Speci men Type: BLOOD SPECIMENOrdering Facility: [facility] Address: [address] [place] [address] Performed By: #### 5 7021-8 ####[facility] LABIA [id number] [place] [address] [place] Lymphocytes (Bld) [#/Vol] 1.68 10*3/uL Normal 1.00-4.0 0 [facility] Comment on above: Order Comment: Speci men Type: BLOOD SPECIMENOrdering Facility: [facility] Address: [address] [place] [address] Performed By: #### 5 7021-8 ####[facility] LABIA [id number] [place] [address] [place] Lymphocytes/100 WBC (Bld) 31.2 % Normal [facility] Comment on above: Order Comment: Speci men Type: BLOOD SPECIMENOrdering Facility: [facility] Address: [address] [place] [address] Performed By: #### 5 7021-8 ####[facility] LABIA [id number] [place] [address] [place] MCH (RBC) [Entitic mass] 33.5 pg Normal 26.0-34.0 [facility] Comment on above: Order Comment: Speci men Type: BLOOD SPECIMENOrdering Facility: [facility] Address: [address] [place] [address] Performed By: #### 5 7021-8 ####[facility]CL[facility] [id number] [place] [address] [place] MCHC (RBC) [Mass/Vol] 34.7 g/dL Normal 30.5-36.0 [facility] Comment on above: Order Comment: Speci men Type: BLOOD SPECIMENOrdering Facility: [facility] Address: [address] [place] [address] Performed By: #### 5 7021-8 ####[facility] LABIA [id number] [place] [address] [place] MCV (RBC) [Entitic vol] 96.5 fL Normal 80.0-100.0 [facility] Comment on above: Order Comment: Speci men Type: BLOOD SPECIMENOrdering Facility: [facility] Address: [address] [place] [address] Performed By: #### 5 7021-8 ####[facility]IA [id number] [place] [address] [place] Monocytes (Bld) [#/Vol] 0.56 10*3/uL Normal <0.87 [facility] Comment on above: Order Comment: Speci men Type: BLOOD SPECIMENOrdering Facility: [facility] Address: [address] [place] [address] Performed By: #### 5 7021-8 ####[facility]IA [id number] [place] [address] [place] Monocytes/100 WBC (Bld) 10.4 % Normal [facility] Comment on above: Order Comment: Speci men Type: BLOOD SPECIMENOrdering Facility: [facility] Address: [address] [place] [address] Performed By: #### 5 7021-8 ####[facility] LABIA [id number] [place] [address] [place] Neutrophils (Bld) [#/Vol] 3.05 10*3/uL Normal 1.45-7.5 0 [facility] Comment on above: Order Comment: Speci men Type: BLOOD SPECIMENOrdering Facility: [facility] Address: [address] [place] [address] Performed By: #### 5 7021-8 ####[facility]CLIA [id number] [place] [address] [place] Neutrophils/100 WBC (Bld) 56.6 % Normal [facility] Comment on above: Order Comment: Speci men Type: BLOOD SPECIMENOrdering Facility: [facility] Address: [address] [place] [address] Performed By: #### 5 7021-8 ####[facility]CL[facility] [id number] [place] [address] [place] Nucleated RBC (Bld) [#/Vol] 10*3/uL Normal <0.01 [facility] Comment on above: Order Comment: Speci men Type: BLOOD SPECIMENOrdering Facility: [facility] Address: [address] [place] [address] Performed By: #### 5 7021-8 ####[facility]CL[facility] [id number] [place] [address] [place] Nucleated RBC/100 WBC (Bld) [Ratio] 0.0 /100 WBC Normal [facility] Comment on above: Order Comment: Speci men Type: BLOOD SPECIMENOrdering Facility: [facility] Address: [address] [place] [address] Performed By: #### 5 7021-8 ####[facility]IA [id number] [place] [address] [place] Platelet mean volume (Bld) [Entitic vol] 10.4 fL Normal 9.0-12.7 [facility] Comment on above: Order Comment: Speci men Type: BLOOD SPECIMENOrdering Facility: [facility] Address: [address] [place], [place] [address] Performed By: #### 5 7021-8 ####[facility]CL[facility] [id number] [address] [address] [place] Platelets (Bld) [#/Vol] 235 10*3/uL Normal 150-400 [facility] Comment on above: Order Comment: Speci men Type: BLOOD SPECIMENOrdering Facility: [facility] Address: [address] [place], [place] [address] Performed By: #### 5 7021-8 ####[facility]IA [id number] [address] [address] [place] RBC (Bld) [#/Vol] 4.00 10*6/uL Low 4.20-6.00 [facility] Comment on above: Order Comment: Speci men Type: BLOOD SPECIMENOrdering Facility: [facility] Address: [address] [place] [address] Performed By: #### 5 7021-8 ####[facility]IA [id number] [address] [address] [place] WBC (Bld) [#/Vol] 5.39 10*3/uL Normal 3.70-11.00 [facility] Comment on above: Order Comment: Speci men Type: BLOOD SPECIMENOrdering Facility: [facility] Address: [address] [place], [place] [address] Performed By: #### 5 7021-8 ####[facility]IA [id number] [address] [address] [facility] Comprehensive metabolic 2000 panelon 08-22-2024 Albumin [Mass/Vol] 4.7 g/dL Normal 3.9-4.9 [facility] Comment on above: Order Comment: Speci men Type: BLOOD SPECIMENOrdering Facility: [facility] Address: [address] [place] [address] Performed By: #### 2 4323-8, 91566-7 ####[facility]CLIA [id number] [facility] [address] [place] [address] [place] ALP [Catalytic activity/Vol] 70 U/L Normal 38-113 [facility] Comment on above: Order Comment: Speci men Type: BLOOD SPECIMENOrdering Facility: [facility] Address: [address] [place] [address] Performed By: #### 2 4323-8, 87273-6 ####[facility] [id number] [facility] [address], [facility]95 [place] ALT [Catalytic activity/Vol] 19 U/L Normal 10-54 [facility] Comment on above: Order Comment: Speci men Type: BLOOD SPECIMENOrdering Facility: [facility] Address: [address] [place] [address] Performed By: #### 2 4323-8, 97115-5 ####[facility] LABCLIA [id number] [address], [place] [address] [place] Anion gap [Moles/Vol] 15 mmol/L Normal 8-15 [facility] Comment on above: Order Comment: Speci men Type: BLOOD SPECIMENOrdering Facility: [facility] Address: [address] [place] [address] Performed By: #### 2 4323-8, 22618-2 ####[facility] LABCLIA [id number] [place] [address] [place] AST [Catalytic activity/Vol] 28 U/L Normal 14-40 [facility] Comment on above: Order Comment: Speci men Type: BLOOD SPECIMENOrdering Facility: [facility] Address: [address] [place] [address] Performed By: #### 2 4323-8, 01403-2 ####[facility]CLIA [id number] [address] [place] [address] [place] Bilirubin [Mass/Vol] 0.7 mg/dL Normal 0.2-1.3 [facility] Comment on above: Order Comment: Speci men Type: BLOOD SPECIMENOrdering Facility: [facility] Address: [address] [place] [place] [id number] Performed By: #### 2 4323-8, 84607-0 ####[facility]CLIA [id number] [facility] [address] [address] [place] Calcium [Mass/Vol] 10.0 mg/dL Normal 8.5-10.2 [facility] Comment on above: Order Comment: Speci men Type: BLOOD SPECIMENOrdering Facility: [facility] Address: [address] [place] [address] Performed By: #### 2 4323-8, 56793-8 ####[facility] LABCLIA [id number] [place] [address] [place] Chloride [Moles/Vol] 101 mmol/L Normal 98-107 [facility] Comment on above: Order Comment: Speci men Type: BLOOD SPECIMENOrdering Facility: [facility] Address: [address] [place], [place] [address] Performed By: #### 2 4323-8, 20230-1 ####[facility]CLIA [id number] [facility] [place] [address] [place] CO2 [Moles/Vol] 24 mmol/L Normal 22-30 [facility] Comment on above: Order Comment: Speci men Type: BLOOD SPECIMENOrdering Facility: [facility] Address: [address] [place] [place] [id number] Performed By: #### 2 4323-8, 43262-7 ####[facility] LABCLIA [id number] [place] [address] [place] Creatinine [Mass/Vol] 2.10 mg/dL High 0.73-1.22 [facility] Comment on above: Order Comment: Speci men Type: BLOOD SPECIMENOrdering Facility: [facility] Address: [address] [place] [address] Performed By: #### 2 4323-8, 51483-8 ####[facility] [id number] [place] [address] [place] Creatinine and Glomerular filtration rate.predicted panel (S/P/Bld) 32 mL/min/1.73m??? Low >=60 [facility] Comment on above: Order Comment: Nader tsang Type: BLOOD SPECIMENOrdering Facility: [facility] Address: [address] [place] [address] Result Comment: Teagan mated Glomerular Filtration Rate (eGFR) is calculated using the 2020 CKD-EPI creatinine equation. This equation utilizes serum creatinine, sex, and age as parameters. The creatinine assay has traceable calibration to isotope dilution-mass spectrometry. Refer to KDIGO guidelines for clinical interpretation. In patients with unstable renal function, e.g. those with acute kidney injury, the eGFR may not accurately reflect actual GFR. Performed By: #### 2 4323-8, 09687-7 ####[facility] LABIA [id number] [place] [address] [place] Glucose [Mass/Vol] 102 mg/dL High 74-99 [facility] Comment on above: Order Comment: Nader tsang Type: BLOOD SPECIMENOrdering Facility: [facility] Address: [address] [place] [address] Result Comment: The [place] Diabetes Association (ADA) provides guidance for cutoff values for fasting glucose and random glucose. The ADA defines fasting as no caloric intake for at least 8 hours. Fasting plasma glucose results between 100 to 125 mg/dL indicate increased risk for diabetes (prediabetes). Fasting plasma glucose results greater than or equal to 126 mg/dL meet the criteria for diagnosis of diabetes. In the absence of unequivocal hyperglycemia, results should be confirmed by repeat testing. In a patient with classic symptoms of hyperglycemia or hyperglycemic crisis, random plasma glucose results greater than or equal to 200 mg/dL meet the criteria for diagnosis of diabetes. Reference: Standards of Medical Care in Diabetes 2016, [place] Diabetes Association. Diabetes Care. 2016.39(Suppl 1). Performed By: #### 2 4323-8, 45699-4 ####[facility] LABCLIA [id number] [address] [address] [place] Potassium [Moles/Vol] 4.0 mmol/L Normal 3.7-5.1 [facility] Comment on above: Order Comment: Speci men Type: BLOOD SPECIMENOrdering Facility: [facility] Address: [address] [place] [address] Performed By: #### 2 4323-8, 95972-6 ####[facility]CLIA [id number] [address] [address] [place] Protein [Mass/Vol] 7.6 g/dL Normal 6.3-8.0 [facility] Comment on above: Order Comment: Speci men Type: BLOOD SPECIMENOrdering Facility: [facility] Address: [address] [place] [address] Performed By: #### 2 4323-8, 16711-3 ####[facility]CLIA [id number] [address] [address] [place] Sodium [Moles/Vol] 140 mmol/L Normal 136-144 [facility] Comment on above: Order Comment: Speci men Type: BLOOD SPECIMENOrdering Facility: [facility] Address: [address] [place] [address] Performed By: #### 2 4323-8, ####[facility]CLIA [id number] [address] [place] [address] [place] Urea nitrogen [Mass/Vol] 14 mg/dL Normal 9-24 [facility] Comment on above: Order Comment: Speci men Type: BLOOD SPECIMENOrdering Facility: [facility] Address: [address] [place], [place] [address] Performed By: #### 2 4323-8, 41957-6 ####[facility]CLIA [id number] [address] [address] [place] HbA1c (Bld)on 08-22-2024 Average glucose Estimated from glycated hemoglobin (Bld) [Mass/Vol] 137 mg/dL Normal [facility] Comment on above: Order Comment: Nader tsang Type: BLOOD SPECIMENOrdering Facility: [facility] Address: [address] [place] [address] Result Comment: eAG: (Estimated average glucose) is a calculated value from HgbA1c and is medical office representative of the average blood glucose level in the last 2-3 month period. Performed By: #### 5 5454-3 ####[facility]CLIA [id number] [address] STATES OF [facility] HbA1c (Bld) [Mass fraction] 6.4 % High 4.3-5.6 [facility] Comment on above: Order Comment: Nader tsang Type: BLOOD SPECIMENOrdering Facility: [facility] Address: [address] [place] [address] Result Comment: Amer [place] Diabetes Association guidelines indicate that patients with HgbA1c in the range 5.7-6.4% are at increased risk for development of diabetes, and intervention by lifestyle modification may be beneficial. HgbA1c greater or equal to 6.5% is considered diagnostic of diabetes. Performed By: #### 5 5454-3 ####[facility] LABIA [id number] [place] [address] [place] Lipid 1996 panelon 5 Cholesterol [Mass/Vol] 228 mg/dL High <200 [facility] Comment on above: Order Comment: Nader tsang Type: BLOOD SPECIMENOrdering Facility: [facility] Address: [address] [place] [address] Result Comment: <200 mg/dL, Desirable 200-239 mg/dL, Borderline high >239 mg/dL, High Performed By: #### 2 4323-8, 52003-0 ####[facility] LABIA [id number] [address] [place] Cholesterol in HDL [Mass/Vol] 33 mg/dL Low >39 [facility] Comment on above: Order Comment: Nader tsang Type: BLOOD SPECIMENOrdering Facility: [facility] Address: [address] [place] [address] Result Comment: 40-5 9 mg/dL, Acceptable >59 mg/dL, High: Negative risk factor for coronary heart disease <40 mg/dL, Low: Positive risk factor for coronary heart disease Performed By: #### 2 4323-8, 51175-4 ####[facility] LABIA [id number] [place] [address] [place] Cholesterol in LDL [Mass/Vol] 148 mg/dL High <100 [facility] Comment on above: Order Comment: Chayobing tsang Type: BLOOD SPECIMENOrdering Facility: [facility] Address: [address] [place] [address] Result Comment: <100 mg/dL, Optimal 100-129 mg/dL, Near optimal/above optimal 130-159 mg/dL, Borderline high 160-189 mg/dL, High >189 mg/dL, Very high Secondary prevention optimal LDL Cholesterol levels are recommended to be <70 mg/dL LDL cholesterol is calculated using the Romero-NIH equation. Performed By: #### 2 4323-8, 29185-2 ####[facility] LABIA [id number] [address] [place] Cholesterol in LDL/Cholesterol in HDL [Mass ratio] 4.48 {ratio} High <2.54 [facility] Comment on above: Order Comment: Nader tsang Type: BLOOD SPECIMENOrdering Facility: [facility] Address: [address] [place] [address] Result Comment: Refe rence: 1. National Cholesterol Education Program ATP III Guideline At-A-Glance Quick Desk Reference: National Heart, Lung, and Blood [place]. National Institutes of Health. 2001: NIH Publication No. 01-3305. 2. An International Atherosclerosis Society position paper: global recommendations for the management of dyslipidemia: executive summary, Atherosclerosis. 2014: 232(2):410-413. Performed By: #### 2 4323-8, 17623-3 ####[facility] LABCLIA [id number] [facility] [id number] [address] [place] Cholesterol in VLDL [Mass/Vol] 48 mg/dL High <30 [facility] Comment on above: Order Comment: Speci men Type: BLOOD SPECIMENOrdering Facility: [facility] Address: [address] [place], [place] [phone] Performed By: #### 2 4323-8, 93982-5 ####[facility] LABCLIA [id number] [facility] [address] [place] [address] [place] Cholesterol non HDL [Mass/Vol] 195 mg/dL High <130 [facility] Comment on above: Order Comment: Speci men Type: BLOOD SPECIMENOrdering Facility: [facility] Address: [address] [place] [address] Result Comment: <130 mg/dL, Optimal 130-159 mg/dL, Near optimal/above optimal 160-189 mg/dL, Borderline high 190-219 mg/dL, High >219 mg/dL, Very high Secondary prevention optimal non HDL Cholesterol levels are recommended to be <100 mg/dL Performed By: #### 2 4323-8, 68399-9 ####[facility] LABIA [id number] [address] [place] [address] [place] Cholesterol.total/Choleste rol in HDL [Mass ratio] 6.91 {ratio} High <5.10 [facility] Comment on above: Order Comment: Speci men Type: BLOOD SPECIMENOrdering Facility: [facility] Address: [address] [place] [place] [id number] Performed By: #### 2 4323-8, 61912-4 ####[facility] LABIA [id number] [address] [place] [address] [place] FASTING TIME 12 hrs Normal [facility] Comment on above: Order Comment: Speci men Type: BLOOD SPECIMENOrdering Facility: [facility] Address: [address] [place], [place] [address] Performed By: #### 2 4323-8, 59644-0 ####[facility] LABCLIA [id number] [place] [address] [place] Triglyceride [Mass/Vol] 258 mg/dL High <150 [facility] Comment on above: Order Comment: Speci men Type: BLOOD SPECIMENOrdering Facility: [facility] Address: [address] [place] [address] Result Comment: <150 mg/dL, Normal 150-199 mg/dL, Borderline high 200-499 mg/dL, High >499 mg/dL, Very high Performed By: #### 2 4323-8, 43676-7 ####[facility] LABCLIA [id number] [place] [address] [place] CNPNon 08-10-2024 CNPN Telephone (FAMWS) -------- SALOME SHETH ([id number]) 1950 M Date Time Provider Department 08/10/24 ALLAN ROSARIO [facility] During your visit today, we recorded the following information about you: Tory Banks MA 08/10/2024 8:36 AM Signed Type of letter/form/fax request - Medical Necessity-PAP supplies Form received from fax on 1 floor and placed on MD desk (Dr. Rosario) for completion. Completed form needs to be faxed to [facility] at [phone] along wit most recent OV note. (Printed and attached). Route to DREW when form completed for processing Tory Banks MA 08/10/2024 2:53 PM Signed faxed Allergies As of Date: 08/10/2024 Noted Allergy Reaction HCTZ (HYDROCHLOROTHIAZIDE) 05/30/2019 14 - Other: See Comments Comments: hyponatremia LIOTHYRONINE 01/21/2018 14 - Other: See Comments Comments: Mouth sores MORPHINE 05/18/2016 14 - Other: See Comments Comments: sick [id number] REDUCTASE INHIBIT*05/18/2016 14 - Other: See Comments Comments: Mouth sores. Failed multiple statins SULFA (SULFONAMIDE ANTIBIOTICS) 05/18/2016 14 - Other: See Comments Comments: Mouth sores SYNTHROID (LEVOTHYROXINE) 01/21/2018 14 - Other: See Comments Comments: Mouth sores. BRAND caused Diarrhea Date Reviewed: 02/29/2024 Reviewed by: Joann Crum MA - Fully Assessed Reason for Visit: Forms [913] Cmt: [place] PAP supplies Prescriptions as of 08/10/2024 - amLODIPine (NORVASC) 10 mg tablet Take 1 tablet by mouth once daily. - amiodarone (PACERONE) 200 mg tablet Taking 0.5 tab at bedtime - ARMOUR THYROID 60 mg tablet Take 2 pills five days a week and 1 pill two days a week. - furosemide (LASIX) 40 mg tablet Take 1 tablet by mouth once daily. - gabapentin (NEURONTIN) 300 mg capsule Take 1 capsule by mouth two times a day for 180 days. - glipiZIDE (GLUCOTROL) 10 mg tablet Take 1 tablet (10 mg) by mouth once daily. - isosorbide mononitrate ER (IMDUR) 30 mg 24 hr tablet Take 1 tablet by mouth two times a day. - losartan (COZAAR) 100 mg tablet Take 1.5 tablets by mouth once daily. - metFORMIN (GLUCOPHAGE) 1,000 mg tablet Take 1 tablet by mouth daily with dinner. - pantoprazole DR (PROTONIX) 40 mg tablet Take 1 tablet by mouth daily before breakfast. Take on empty stomach, 1/2 hr before meal. - CPAP Initiate CPAP @ 12 cm of water with humidification. Mask (per patient preference) optional chin strap (if indicated) , filters, tubing, humidifier and lifetime supplies. - polyethylene glycol 3350 (MIRALAX) 17 gram/dose powder Take 289 g by mouth once daily. Dissolve dose in 4 - 8 ounces of liquid and take as directed. - acetaminophen (TYLENOL) 325 mg tablet 650 mg every 4 hours as needed. - aspirin, enteric coated (ASPIRIN, ENTERIC COATED) 81 mg EC tablet Take 81 mg by mouth once daily. - cholecalciferol (VITAMIN D-3) 5,000 unit tab Take 5,000 Units by mouth once daily. - cyanocobalamin, vitamin B-12, (VITAMIN B-12 ORAL) Take by mouth once daily. 2000 mg Meds Comments as of 07/30/2023: GasX 250 mg nightly Problem List As Of Date 08/10/2024 Noted Resolved BPPV (benign paroxysmal positional vertigo) [H8*05/18/2016 Essential hypertension [I10] Hypothyroidism [E03.9] Fibromyalgia [M79.7] Type 2 diabetes mellitus with diabetic neuropat* Coronary artery disease [I25.10] BPH (benign prostatic hyperplasia) [N40.0] Bladder cancer (HCC) [C67.9] 04/19/2011 07/30/2023 Rheumatoid arthritis (HCC) [M06.9] 07/30/2023 Trigger finger [M65.30] Anxiety [F41.9] 01/20/2018 PRAKASH (obstructive sleep apnea) [G47.33] Obesity (BMI 30-39.9) [E66.9] 01/27/2022 S/P CABG (coronary artery bypass graft) [Z95.1] 02/06/2019 S/P coronary artery stent placement [Z95.5] 02/06/2019 Mixed hyperlipidemia [E78.2] 02/06/2019 RLS (restless legs syndrome) [G25.81] 01/18/2020 Lung nodule, solitary [R91.1] 09/05/2020 History of CA (myocardial infarction) [I25.2] Ischemic cardiomyopathy [I25.5] 06/30/2021 Abdominal aortic aneurysm (AAA) without rupture*06/30/2021 07/30/2023 Paroxysmal A-fib (HCC) [I48.0] 06/30/2021 Class 1 obesity due to excess calories with ser*06/30/2021 Benign tumor of ribs, sternum, and clavicle [D1*06/30/2021 Neuropathy [G62.9] 01/27/2022 Chronic kidney disease, stage 3a (HCC) [N18.31] 01/29/2023 Stage 3b chronic kidney disease (HCC) [N18.32] 07/30/2023 Encounter Status:Closed by TORY BANKS on 08/10/24 Normal [facility] PSA, total screeningOrdered By: Eugene Foreman on 07-06-2024 Prostate Specific Antigen Screen 1.16 ng/mL 0.02-4.00 [facility] Comment on above: This test was perfor med using the [employer] tPSA method. Measured values of a patient sample can vary depending on the testing procedure used. PSA values determined on patient samples by different testing procedures cannot be used interchangeably. If there is a change in PSA assays while monitoring therapy, sequential testing should be performed to confirm baseline values. PSA,Total - Annual Screenon 07-06-2024 PSA,TOT SCREEN 1.16 ng/mL Normal 0.02-4.00 [facility] Comment on above: Result Comment: This test was performed using the [employer] tPSA method. Measured values of a patient??sample can vary depending on the testing procedure used. PSA values determined on patient samples by different testing procedures cannot be used interchangeably. If there is a change in PSA assays while monitoring therapy, sequential testing should be performed to confirm baseline values. Performed By: #### L 501.9910 #### [facility] [address] [place], [place], [address] [facility] 05-16-2024 [facility] Telephone (SINGH) -------- SALOME SHETH ([id number]) 1950 M Date Time Provider Department 05/16/24 [facility] During your visit today, we recorded the following information about you: Carissa Rosales LPN 05/16/2024 3:00 PM Signed Pt's calls to report that insurance does not want to cover losartan 100 mg 1.5 tabs daily. reports she looked on the formulary and it looks like they will cover 1 tab daily. If pt is to continue on 1.5 tabs daily of losartan 100 mg then a prior auth will need to be done. Please review and advise. JESSICA Zuniga Mark D, MD 05/16/2024 3:24 PM Signed OK to change to 1 tab daily;new Rx done MD Radames Heller Rilee, MA 05/16/2024 4:20 PM Signed Routed to PA Nurse, as noted below a PA will need to be done. DREW Gay Elizabeth, MA 05/16/2024 4:56 PM Signed Submitted Pa for 1.5 tab daily through covermymeds Urias: BRRLNKBU DREW Nina Elizabeth, MA 05/17/2024 10:26 AM Signed PA was approved and notified that insurance will pay for 1.5 tab daily. Canceled rx for one tab out and put detailed not in d/c reason Nikkie Hernandez MA Allergies As of Date: 05/16/2024 Noted Allergy Reaction HCTZ (HYDROCHLOROTHIAZIDE) 05/30/2019 14 - Other: See Comments Comments: hyponatremia LIOTHYRONINE 01/21/2018 14 - Other: See Comments Comments: Mouth sores MORPHINE 05/18/2016 14 - Other: See Comments Comments: sick [id number] REDUCTASE INHIBIT*05/18/2016 14 - Other: See Comments Comments: Mouth sores. Failed multiple statins SULFA (SULFONAMIDE ANTIBIOTICS) 05/18/2016 14 - Other: See Comments Comments: Mouth sores SYNTHROID (LEVOTHYROXINE) 01/21/2018 14 - Other: See Comments Comments: Mouth sores. BRAND caused Diarrhea Date Reviewed: 02/29/2024 Reviewed by: Joann Crum MA - Fully Assessed Reason for Visit: Insurance Authorization [[id number]] Visit Diagnosis:Essential hypertension [I10] Prescriptions as of 05/17/2024 - amiodarone (PACERONE) 200 mg tablet Taking 0.5 tab at bedtime - ARMOUR THYROID 60 mg tablet Take 2 pills five days a week and 1 pill two days a week. - furosemide (LASIX) 40 mg tablet Take 1 tablet by mouth once daily. - gabapentin (NEURONTIN) 300 mg capsule Take 1 capsule by mouth two times a day for 180 days. - glipiZIDE (GLUCOTROL) 10 mg tablet Take 1 tablet (10 mg) by mouth once daily. - isosorbide mononitrate ER (IMDUR) 30 mg 24 hr tablet Take 1 tablet by mouth two times a day. - losartan (COZAAR) 100 mg tablet Take 1.5 tablets by mouth once daily. - metFORMIN (GLUCOPHAGE) 1,000 mg tablet Take 1 tablet by mouth daily with dinner. - pantoprazole DR (PROTONIX) 40 mg tablet Take 1 tablet by mouth daily before breakfast. Take on empty stomach, 1/2 hr before meal. - amLODIPine (NORVASC) 10 mg tablet Take 1 tablet by mouth once daily. - CPAP Initiate CPAP @ 12 cm of water with humidification. Mask (per patient preference) optional chin strap (if indicated) , filters, tubing, humidifier and lifetime supplies. - polyethylene glycol 3350 (MIRALAX) 17 gram/dose powder Take 289 g by mouth once daily. Dissolve dose in 4 - 8 ounces of liquid and take as directed. - acetaminophen (TYLENOL) 325 mg tablet 650 mg every 4 hours as needed. - aspirin, enteric coated (ASPIRIN, ENTERIC COATED) 81 mg EC tablet Take 81 mg by mouth once daily. - cholecalciferol (VITAMIN D-3) 5,000 unit tab Take 5,000 Units by mouth once daily. - cyanocobalamin, vitamin B-12, (VITAMIN B-12 ORAL) Take by mouth once daily. 2000 mg Meds Comments as of 07/30/2023: GasX 250 mg nightly Medication notes this encounter LOSARTAN 100 MG TABLET >> Nikkie Hernandez MA 05/17/2024 10:24 AM patient does 1.5 tab DUONG gabriel complted on 1.5 and approved Problem List As Of Date 05/16/2024 Noted Resolved BPPV (benign paroxysmal positional vertigo) [H8*05/18/2016 Essential hypertension [I10] Hypothyroidism [E03.9] Fibromyalgia [M79.7] Type 2 diabetes mellitus with diabetic neuropat* Coronary artery disease [I25.10] BPH (benign prostatic hyperplasia) [N40.0] Bladder cancer (HCC) [C67.9] 04/19/2011 07/30/2023 Rheumatoid arthritis (HCC) [M06.9] 07/30/2023 Trigger finger [M65.30] Anxiety [F41.9] 01/20/2018 PRAKASH (obstructive sleep apnea) [G47.33] Obesity (BMI 30-39.9) [E66.9] 01/27/2022 S/P CABG (coronary artery bypass graft) [Z95.1] 02/06/2019 S/P coronary artery stent placement [Z95.5] 02/06/2019 Mixed hyperlipidemia [E78.2] 02/06/2019 RLS (restless legs syndrome) [G25.81] 01/18/2020 Lung nodule, solitary [R91.1] 09/05/2020 History of CA (myocardial infarction) [I25.2] Ischemic cardiomyopathy [I25.5] 06/30/2021 Abdominal aortic aneurysm (AAA) without rupture*06/30/2021 07/30/2023 Paroxysmal A-fib (HCC) [I48.0] 06/30/2021 Class 1 obesity due to excess calories (more content not included)... Normal [facility] CNPNon 04-11-2024 CNPN Telephone (FAMPWS) -------- SALOME SHETH ([id number]) 1950 M Date Time Provider Department 04/11/24 ALLAN ROSARIO FAMPWS During your visit today, we recorded the following information about you: Tory Banks MA 04/11/2024 8:55 AM Signed Type of letter/form/fax request - Exercise Program Order Form received from fax on 1 floor and placed on desk (Dr. Rosario) for completion. Completed form needs to be faxed to [facility] at [phone]. Route to [place] when form completed for processing Tory Banks MA 05/01/2024 7:03 PM Signed Faxed. Tory Banks MA Allergies As of Date: 04/11/2024 Noted Allergy Reaction HCTZ (HYDROCHLOROTHIAZIDE) 05/30/2019 14 - Other: See Comments Comments: hyponatremia LIOTHYRONINE 01/21/2018 14 - Other: See Comments Comments: Mouth sores MORPHINE 05/18/2016 14 - Other: See Comments Comments: sick [id number] REDUCTASE INHIBIT*05/18/2016 14 - Other: See Comments Comments: Mouth sores. Failed multiple statins SULFA (SULFONAMIDE ANTIBIOTICS) 05/18/2016 14 - Other: See Comments Comments: Mouth sores SYNTHROID (LEVOTHYROXINE) 01/21/2018 14 - Other: See Comments Comments: Mouth sores. BRAND caused Diarrhea Date Reviewed: 02/29/2024 Reviewed by: Joann Crum MA - Fully Assessed Reason for Visit: order form [Other] Prescriptions as of 05/01/2024 - gabapentin (NEURONTIN) 300 mg capsule Take 1 capsule by mouth two times a day for 180 days. - amLODIPine (NORVASC) 10 mg tablet Take 1 tablet by mouth once daily. - glipiZIDE (GLUCOTROL) 10 mg tablet Take 1 tablet (10 mg) by mouth once daily. - furosemide (LASIX) 40 mg tablet Take 1 tablet by mouth once daily. - pantoprazole DR (PROTONIX) 40 mg tablet Take 1 tablet by mouth daily before breakfast. Take on empty stomach, 1/2 hr before meal. - metFORMIN (GLUCOPHAGE) 1,000 mg tablet Take 1 tablet by mouth daily with dinner. - losartan (COZAAR) 100 mg tablet Take 1.5 tablets by mouth once daily. - isosorbide mononitrate ER (IMDUR) 30 mg 24 hr tablet Take 1 tablet by mouth two times a day. - amiodarone (PACERONE) 200 mg tablet Taking 0.5 tab at bedtime - ARMOUR THYROID 60 mg tablet Take 2 pills five days a week and 1 pill two days a week. - CPAP Initiate CPAP @ 12 cm of water with humidification. Mask (per patient preference) optional chin strap (if indicated) , filters, tubing, humidifier and lifetime supplies. - polyethylene glycol 3350 (MIRALAX) 17 gram/dose powder Take 289 g by mouth once daily. Dissolve dose in 4 - 8 ounces of liquid and take as directed. - acetaminophen (TYLENOL) 325 mg tablet 650 mg every 4 hours as needed. - aspirin, enteric coated (ASPIRIN, ENTERIC COATED) 81 mg EC tablet Take 81 mg by mouth once daily. - cholecalciferol (VITAMIN D-3) 5,000 unit tab Take 5,000 Units by mouth once daily. - cyanocobalamin, vitamin B-12, (VITAMIN B-12 ORAL) Take by mouth once daily. 2000 mg Meds Comments as of 07/30/2023: GasX 250 mg nightly Problem List As Of Date 04/11/2024 Noted Resolved BPPV (benign paroxysmal positional vertigo) [H8*05/18/2016 Essential hypertension [I10] Hypothyroidism [E03.9] Fibromyalgia [M79.7] Type 2 diabetes mellitus with diabetic neuropat* Coronary artery disease [I25.10] BPH (benign prostatic hyperplasia) [N40.0] Bladder cancer (HCC) [C67.9] 04/19/2011 07/30/2023 Rheumatoid arthritis (HCC) [M06.9] 07/30/2023 Trigger finger [M65.30] Anxiety [F41.9] 01/20/2018 PRAKASH (obstructive sleep apnea) [G47.33] Obesity (BMI 30-39.9) [E66.9] 01/27/2022 S/P CABG (coronary artery bypass graft) [Z95.1] 02/06/2019 S/P coronary artery stent placement [Z95.5] 02/06/2019 Mixed hyperlipidemia [E78.2] 02/06/2019 RLS (restless legs syndrome) [G25.81] 01/18/2020 Lung nodule, solitary [R91.1] 09/05/2020 History of CA (myocardial infarction) [I25.2] Ischemic cardiomyopathy [I25.5] 06/30/2021 Abdominal aortic aneurysm (AAA) without rupture*06/30/2021 07/30/2023 Paroxysmal A-fib (HCC) [I48.0] 06/30/2021 Class 1 obesity due to excess calories with ser*06/30/2021 Benign tumor of ribs, sternum, and clavicle [D1*06/30/2021 Neuropathy [G62.9] 01/27/2022 Chronic kidney disease, stage 3a (HCC) [N18.31] 01/29/2023 Stage 3b chronic kidney disease (HCC) [N18.32] 07/30/2023 Encounter Status:Closed by TORY BANKS on 05/01/24 Normal [facility] Cardiology Visit Reporton Cardiology Visit Report [facility] [address] [place] [address] OFFICE VISIT Date of Service: 03/20/24 MR#: [id number] Acct: [id number] Name: SALOME SHETH Rep #: [id number] : 1950 Provider: JENNY stanford Age/Sex: 73/M Location: [facility] Status: Signed HPI HPI History of Present Illness Details: This is a 73-year-old white male who presents today for outpatient cardiovascular follow-up. The patient carries a history of paroxysmal atrial fibrillation which he is symptomatic with describes it as shortness of breath. He also has a history of coronary disease status post remote bypass graft surgery with a PIEDRA to the LAD and a radial graft to the first diagonal. He has a 50% proximal LAD stent lesion it is then occluded in the mid LAD and the distal LAD fills via the patent PIEDRA. The circumflex is occluded and fills with collateral flow from the left and right system. The right coronary has terminal diffuse 75% stenoses but is patent. The patient's previous angina was bilateral arm and wrist discomfort. He is not having that at this time intermittently he does have left shoulder weakness but at other times he can raise his arm without incident. Apparently he has had surgical intervention on his elbows and shoulders. The patient's EF was 50% on echo January 2022. He was originally diagnosed with paroxysmal atrial fibrillation when he presented in 2020 with flash pulmonary edema and paroxysmal atrial fibs with rapid ventricular response. He has been maintained on amiodarone 100 mg daily. The patient is diabetic this is managed with his primary service he also has a history of hyperlipidemia he is intolerant to all meds. He denies chest, arm, jaw, or neck discomfort. He acknowledges palpitations that he describes as fast and pounding. He states an episode on 03/18/2024 where he woke up melanite to use the restroom and felt diaphoretic and palpitations. He states he checked his pulse ox and noted a oxygen concentration 44% and a heart of 180. He took a few deep breaths checked his blood sugar that was noted to be in the 70s. He drank orange juice went back to bed. He denies any reoccurring episodes. He continues with bilateral lower extremity edema. He denies claudication. He continues with shortness of breath with activity, shortness of breath at rest, orthopnea, or PND. He denies chronic cough. He denies significant, sudden weight gain. He denies lightheadedness, dizziness, near-syncope, or syncope. He denies blood in urine, blood in stool, or epistaxis. He denies fever with chills. He denies myalgia. He denies fatigue. His exercise level has remained stable. 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: No Accompanied by: Is patient in pain?: No Allergies Hzvptzm-OWW-ZfR Reductase Inhibitor (Flfsjhb-Cbv-Vgr Reductase Inhibitor) Allergy (Severe, Verified 03/20/24 09:38) Severe mouth sores hydrochlorothiazide Allergy (Intermediate, Verified 03/20/24 09:38) Other Sulfa (Sulfonamide Antibiotics) Allergy (Unknown, Verified 03/20/24 09:38) Unknown levothyroxine sodium (From Synthroid) Allergy (Verified 03/20/24 09:38) mouth sores,diarrhea,stomach cramps fish oil Adverse Reaction (Severe, Verified 03/20/24 09:38) Mouth Sores apixaban (From Eliquis) Adverse Reaction (Intermediate, Verified 03/20/24 09:38) blood in stools morphine Adverse Reaction (Verified 03/20/24 09:38) Nausea/Vom/Diarrhea Medications ???Medication ???Instructions ???Recorded ???Confirmed ???Type aspirin 81 mg tablet 81 mg PO DAILY 10/20/20 03/20/24 History gabapentin 300 mg capsule 600 mg PO QHS nerve pain 10/20/20 03/20/24 History losartan 100 mg tablet 150 mg PO DAILY blood pressure 10/20/20 03/20/24 History pantoprazole 40 mg tablet,delayed 40 mg PO DAILY reflux 10/20/20 03/20/24 History release cholecalciferol (vitamin D3) 125 125 mcg PO DAILY 03/18/21 03/20/24 History mcg (5,000 unit) tablet glipizide 10 mg tablet, extended 10 mg PO DAILY 03/18/21 03/20/24 History release 24 hr cyanocobalamin (vitamin B-12) 2,000 mcg PO DAILY 09/30/21 03/20/24 History 1,000 mcg tablet (Vitamin B-12) metformin 1,000 mg tablet 1,000 mg PO DAILY 09/30/21 03/20/24 History polyethylene glycol 3350 17 17 g PO DAILY 09/30/21 03/20/24 History gram/dose oral powder (Miralax) wheat dextrin 3 gram/3.5 gram oral 1 packet PO DAILY 09/30/21 03/20/24 History powder packet (Benefiber Clear Sugar Free(dextrin)) amlodipine 10 mg (more content not included)... Normal [facility] 02-29-2024 [facility] Office Visit (FAMPWS ) -------- REYNALDOQUENTINSALOME ([id number]) 1950 M Date Time Provider Department 02/29/24 10:00 AM ALLAN ROSARIOPWS During your visit today, we recorded the following information about you: Pulse Respiration Blood pressure Weight 68/minute 18/minute 116/68 105.1 kg Allan Rosario MD 02/29/2024 10:35 AM Signed Chief Complaint Patient presents with: F/U 1 month HPI Salome Jameson Lizzy is a 73 year old male who presents here today for a 1 month follow up. Pt here with his for a follow up visit. Pt seen on 02/01/24 with increased b/l leg edema and abdominal bloating. Pt's Lasix was increased to 60 mg for 1 month as recommended by this office. Pt has since seen Cardiology on 02/16/24 who also made changes to his regimen. They recommended increasing Lasix to 100 mg for 3-5 days and d/c Metoprolol 25 mg 1 tab po bid. Due to swelling not being completely controlled states he's currently taking Lasix 40 mg bid, which has seemed to help, may have some residual swelling in his feet. Breathing stable at this time. Had echo done that they will review at his appt in March. Has noticed when wearing long socks, he doesn't notice an indent when he takes them off as bad as before. Notes the past two days he's had heart palpitations at night, tries to change position in bed which makes the palpitations resolve most times. Last night it started and he had to get up and walk to calm it down, broke out in a sweat. States he sat down under a fan and cooled himself down and eventually the palpitation went away. Reports when these episodes occurred in the past he's had to go to the ED. Did discuss calling Cardio to update them since they wanted to discuss other/better medications. Wears a ring that keeps track of his cardiac vitals and transfers over to his phone. Feels he's still retaining some fluid in his abdomen, feels bloated. Has lost 9 lbs since last OV. At times he feels he has something balled up in between his toes or the sensation of. Does have neuropathy. States this has been acting up more lately. Asking about medications that can cause hair loss. In the past he lost all the hair on his legs, they told him it was related to his thyroid. Now it's his armpit hair. Asking if weather can cause joint pain. Past medical history, appointments, medications, allergies reviewed. Previous Medical History PAST MEDICAL HISTORY Diagnosis Date AAA (abdominal aortic aneurysm) ([facility]) conflicting results Anxiety Bladder cancer ([facility]) [address] Foreman BPH (benign prostatic hyperplasia) BPPV (benign paroxysmal positional vertigo) Carpal tunnel syndrome s/p release Central sleep apnea Coronary artery disease s/p CABG. Dr. Varela Diabetes mellitus, type II (HCC) Diabetic retinopathy (HCC) OU Diverticulosis Fibromyalgia Hard of hearing Hypertension Hypothyroidism Insomnia Left elbow fracture Lipoma of anterior chest wall s/p resection Myocardial infarction (HCC) x3 Obesity (BMI 30-39.9) PRAKASH (obstructive sleep apnea) on CPAP Pulmonary nodules conflicting studies Restless leg syndrome Rheumatoid arthritis (HCC) Trigger finger Previous Surgical History PAST SURGICAL HISTORY Procedure Laterality Date ARTHRP KNE CONDYLEANDPLATU MEDIALANDLAT COMPARTMENTS Bilateral x4 each CABG (3) VEIN GRAFTS AND ARTERIAL GRAFT(S) 2003 CARPAL TUNNEL Bilateral CHOLECYSTECTOMY open COLONOSCOPY 07/14/2021 No repeat due to age. COLONOSCOPY N/A 07/01/2022 EGD W/O BRSH SPEC VARICIES INJ 07/14/2021 EGD W/O BRSH SPEC VARICIES INJ N/A 07/01/2022 PAST SURGICAL HISTORY OF Left Reverse shoulder replacement PAST SURGICAL HISTORY OF Bilateral rotator cuff tear repair PAST SURGICAL HISTORY OF Left elbow fracture repair PAST SURGICAL HISTORY OF Right elbow-bone chip repair PAST SURGICAL HISTORY OF Left trigger finger release PAST SURGICAL HISTORY OF Left tumor resection from rib PAST SURGICAL HISTORY OF prostate surgery PAST SURGICAL HISTORY OF 03/08/2019 TURP, diagnostic cysto Family History FAMILY HISTORY Problem Relation Age of Onset Psychiatry Mother suicide Psychiatry Father suicide Heart Attack Sister Diabetes Brother type I other (celiac disease) Brother Alcohol/Drug Brother Blood Clots Brother Alzheimer's Disease Brother Heart disease Brother other (Pulmonday disease) Brother No Known Problems Brother No Known Problems Maternal Grandmother No Known Problems Maternal Grandfather No Known Problems Paternal Grandmother No Known Problems Paternal Grandfather Patient Allergies ALLERGIES Allergen Reactions Hctz [Hydrochloroth* Other: See Comments hyponatremia Liothyronine Other: See Comments Mouth sores Morphine Other: See Comments sick Gghohnp-Grd-Wjz Red* Other: See Comments Mouth (more content not included)... Normal [facility] Basic metabolic 2000 panelon 02-23-2024 Anion gap [Moles/Vol] 16 mmol/L High 8-15 [facility] Comment on above: Order Comment: Speci men Type: BLOOD SPECIMEN Ordering Facility: [facility] Address: [address] [place] [address] Performed By: #### 2 4321-2 #### [facility] CLIA [id number] [address] [place] [address] [place] Calcium [Mass/Vol] 9.7 mg/dL Normal 8.5-10.2 [facility] Comment on above: Order Comment: Speci men Type: BLOOD SPECIMEN Ordering Facility: [facility] Address: [address] [place] [address] Performed By: #### 2 4321-2 #### [facility] CLIA [id number] [address] [place] [address] [place] Chloride [Moles/Vol] 100 mmol/L Normal 98-107 [facility] Comment on above: Order Comment: Speci men Type: BLOOD SPECIMEN Ordering Facility: [facility] Address: [address] [place] [address] Performed By: #### 2 4321-2 #### [facility] CLIA [id number] [address] [place] [address] [place] CO2 [Moles/Vol] 23 mmol/L Normal 22-30 [facility] Comment on above: Order Comment: Speci men Type: BLOOD SPECIMEN Ordering Facility: [facility] Address: [address] [place] [address] Performed By: #### 2 4321-2 #### [facility] CLIA [id number] [address] [place] [address] [place] Creatinine [Mass/Vol] 2.16 mg/dL High 0.73-1.22 [facility] Comment on above: Order Comment: Speci men Type: BLOOD SPECIMEN Ordering Facility: [facility] Address: [address] [place] [address] Performed By: #### 2 4321-2 #### [facility] CLIA [id number] [address] [place] [address] [place] Creatinine and Glomerular filtration rate.predicted panel (S/P/Bld) 31 mL/min/1.73m??? Low >=60 [facility] Comment on above: Order Comment: Nader tsang Type: BLOOD SPECIMEN Ordering Facility: [facility] Address: [address] [place] [address] Result Comment: Teagan mated Glomerular Filtration Rate (eGFR) is calculated using the 2020 CKD-EPI creatinine equation. This equation utilizes serum creatinine, sex, and age as parameters. The creatinine assay has traceable calibration to isotope dilution-mass spectrometry. Refer to KDIGO guidelines for clinical interpretation. In patients with unstable renal function, e.g. those with acute kidney injury, the eGFR may not accurately reflect actual GFR. Performed By: #### 2 4321-2 #### [facility] CLIA [id number] [address] [place] [address] [place] Glucose [Mass/Vol] 100 mg/dL High 74-99 [facility] Comment on above: Order Comment: Nader tsang Type: BLOOD SPECIMEN Ordering Facility: [facility] Address: [address] [place] [address] Result Comment: The [place] Diabetes Association (ADA) provides guidance for cutoff values for fasting glucose and random glucose. The ADA defines fasting as no caloric intake for at least 8 hours. Fasting plasma glucose results between 100 to 125 mg/dL indicate increased risk for diabetes (prediabetes). Fasting plasma glucose results greater than or equal to 126 mg/dL meet the criteria for diagnosis of diabetes. In the absence of unequivocal hyperglycemia, results should be confirmed by repeat testing. In a patient with classic symptoms of hyperglycemia or hyperglycemic crisis, random plasma glucose results greater than or equal to 200 mg/dL meet the criteria for diagnosis of diabetes. Reference: Standards of Medical Care in Diabetes 2016, [place] [employer] Association. Diabetes Care. 2016.39(Suppl 1). Performed By: #### 2 4321-2 #### [facility] CLIA [id number] [address] [place] [address] [place] Potassium [Moles/Vol] 4.2 mmol/L Normal 3.7-5.1 [facility] Comment on above: Order Comment: Nader tsang Type: BLOOD SPECIMEN Ordering Facility: [facility] Address: [address] [place], [place] [address] Performed By: #### 2 4321-2 #### [facility] CLIA [id number] [address] [place] [address] [place] Sodium [Moles/Vol] 139 mmol/L Normal 136-144 [facility] Comment on above: Order Comment: Speci men Type: BLOOD SPECIMEN Ordering Facility: [facility] Address: [address] [place] [address] Performed By: #### 2 4321-2 #### [facility] CLIA [id number] [address] [place] [address] [place] Urea nitrogen [Mass/Vol] 18 mg/dL Normal 9-24 [facility] Comment on above: Order Comment: Speci men Type: BLOOD SPECIMEN Ordering Facility: [facility] Address: [address] [place] [address] Performed By: #### 2 4321-2 #### [facility] CLIA [id number] [address] [place] [address] [place] CBC panel Auto (Bld)on 02-22 Erythrocyte distribution width (RBC) [Ratio] 15.3 % High 11.5-15.0 [facility] Comment on above: Order Comment: Speci men Type: BLOOD SPECIMENOrdering Facility: [facility] Address: [address] [place] [address] Performed By: #### 5 8410-2 ####[facility] [id number] [place] [address] [place] Hematocrit (Bld) [Volume fraction] 34.0 % Low 39.0-51.0 [facility] Comment on above: Order Comment: Speci men Type: BLOOD SPECIMENOrdering Facility: [facility] Address: [address] [place] [address] Performed By: #### 5 8410-2 ####[facility] [id number] [place] [address] [place] Hemoglobin (Bld) [Mass/Vol] 11.0 g/dL Low 13.0-17.0 [facility] Comment on above: Order Comment: Speci men Type: BLOOD SPECIMENOrdering Facility: [facility] Address: [address] [place] [address] Performed By: #### 5 8410-2 ####[facility] [id number] [place] [address] [place] MCH (RBC) [Entitic mass] 28.1 pg Normal 26.0-34.0 [facility] Comment on above: Order Comment: Speci men Type: BLOOD SPECIMENOrdering Facility: [facility] Address: [address] [place] [address] Performed By: #### 5 8410-2 ####[facility] [id number] [place] [address] [place] MCHC (RBC) [Mass/Vol] 32.4 g/dL Normal 30.5-36.0 [facility] Comment on above: Order Comment: Speci men Type: BLOOD SPECIMENOrdering Facility: [facility] Address: [address] [place] [address] Performed By: #### 5 8410-2 ####[facility] [id number] [place] [address] [place] MCV (RBC) [Entitic vol] 86.7 fL Normal 80.0-100.0 [facility] Comment on above: Order Comment: Speci men Type: BLOOD SPECIMENOrdering Facility: [facility] Address: [address] [place] [address] Performed By: #### 5 8410-2 ####[facility] [id number] [place] [address] [place] Nucleated RBC (Bld) [#/Vol] 10*3/uL Normal <0.01 [facility] Comment on above: Order Comment: Speci men Type: BLOOD SPECIMENOrdering Facility: [facility] Address: [address] [place] [address] Performed By: #### 5 8410-2 ####[facility] [id number] [place] [address] [place] Platelet mean volume (Bld) [Entitic vol] 10.4 fL Normal 9.0-12.7 [facility] Comment on above: Order Comment: Speci men Type: BLOOD SPECIMENOrdering Facility: [facility] Address: [address] [place] [address] Performed By: #### 5 8410-2 ####[facility] [id number] [place] [address] [place] Platelets (Bld) [#/Vol] 228 10*3/uL Normal 150-400 [facility] Comment on above: Order Comment: Speci men Type: BLOOD SPECIMENOrdering Facility: [facility] Address: [address] [place] [address] Performed By: #### 5 8410-2 ####[facility] [id number] [place] [address] [place] RBC (Bld) [#/Vol] 3.92 10*6/uL Low 4.20-6.00 [facility] Comment on above: Order Comment: Speci men Type: BLOOD SPECIMENOrdering Facility: [facility] Address: [address] [place] [address] Performed By: #### 5 8410-2 ####[facility] [id number] [place] [address] [place] WBC (Bld) [#/Vol] 4.65 10*3/uL Normal 3.70-11.00 [facility] Comment on above: Order Comment: Speci men Type: BLOOD SPECIMENOrdering Facility: [facility] Address: [address] [place] [address] Performed By: #### 5 8410-2 ####[facility] [id number] [place] [address] [place] Echo Complete W/ Contraston 02-23-2024 Echo Complete W/ Contrast [facility] [address] [place] [address] Echo Complete W/ Contrast 02/23/24 1302 MR#: [id number] Acct: [id number] Name: SALOME SHETH Rep #: [id number] : 1950 73 From: Agnes Hastings MD Attending Dr: Marvin Hagen FAMILY DAY CARE PROVIDER-C Status: REG CLI Ordering Dr: Marvin Hagen FAMILY DAY CARE PROVIDER FAMILY DAY CARE PROVIDER-C Date: 02/23/24 Location: [facility] Sex: M C Admitted: Reason For Study: Dyspnea/SOB Procedure This was a 2D Doppler, Color Flow transthoracic echocardiogram. The study was technically difficult. Contrast injection was performed. Exam performed in department. Left Ventricle Normal LV size. Mild concentric left ventricular hypertrophy. Moderate LV apical and anteroseptal hypokinesis. Estimated LVEF 40 to 45%. Diastolic function indeterminate. Right Ventricle Normal right ventricle. Atria The left atrium is mildly enlarged. Normal right atrium. Mitral Valve Mild (1+) mitral valve insufficiency. Tricuspid Valve Mild tricuspid valve insufficiency. Right ventricular systolic pressure estimated to be 40 mmHg. Aortic Valve Mild (1+) aortic valve insufficiency. Pulmonic Valve The pulmonic valve is not well visualized. Trivial pulmonic valve insufficiency. Great Vessels Mildly dilated aortic root. Pericardium/Pleural No pericardial effusion. Medication 22 gauge I.V. with prn adaptor inserted into left arm. Diluted definity 4ml given slow IV push to enhance endocardial definition. MMode/2D Measurements Calculations LVIDd: 5.1 cm IVSd: 1.3 cm LVOT diam: 2.1 cm LVIDs: 4.1 cm LVPWd: 1.3 cm RVDd: 4.8 cm FS: 20.1 % LVOT area: 3.6 cm2 Ao root diam: 3.8 cm LVAd ap4: 51.1 cm2 SV(MOD-sp4): 76.4 ml LVLd ap4: 10.3 cm SI(MOD-sp4): 35.1 ml/m2 EDV(MOD-sp4): 204.9 ml EDV(sp4-el): 215.7 ml LVAs ap4: 37.7 cm2 LVLs ap4: 9.1 cm ESV(MOD-sp4): 128.6 ml ESV(sp4-el): 132.5 ml EF(MOD-sp4): 37.3 % EF(sp4-el): 38.6 % SV(sp4-el): 83.2 ml TAPSE: 2.1 cm Time Measurements MV dec time: 0.23 sec Doppler Measurements Calculations MV E max lilian: 87.6 cm/sec Lat Peak E' Lilian: 11.8 cm/sec Med Peak E' Lilian: 7.1 cm/sec MV A max lilian: 87.3 cm/sec E/E' lat: 7.5 E/E' med: 12.3 MV E/A: 1.0 MV V2 max: 123.6 cm/sec MV P1/2t max lilian: 123.2 cm/sec Ao V2 max: 160.5 cm/sec MV max P.1 mmHg MV P1/2t: 109.4 msec Ao max P.3 mmHg MV V2 mean: 71.7 cm/sec MV dec slope: 329.9 cm/sec2 Ao V2 mean: 109.8 cm/sec MV mean P.4 mmHg Ao mean P.5 mmHg MV V2 VTI: 45.5 cm MVA(P1/2t): 2.0 cm2 Ao V2 VTI: 31.7 cm MVA(VTI): 1.9 cm2 AV (velocity ratio): 0.75 JOSE D(I,D): 2.7 cm2 JOSE D(V,D): 2.4 cm2 AI max lilian: 346.6 cm/sec LV V1 max: 106.2 cm/sec MR max lilian: 503.5 cm/sec AI max P.2 mmHg LV V1 max P.5 mmHg MR max P.4 mmHg AI dec slope: 154.6 cm/sec2 LV V1 mean P.8 mmHg AI P1/2t: 656.6 msec LV V1 mean: 80.5 cm/sec LV V1 VTI: 23.7 cm SV(LVOT): 85.2 ml PA V2 max: 101.0 cm/sec TR max lilian: 293.1 cm/sec TR max P.4 mmHg ECHO/Echo Complete W/ Contrast Interpretation Summary Mild concentric left ventricular hypertrophy. Moderate LV apical and anteroseptal hypokinesis. Estimated LVEF 40 to 45%. Diastolic function indeterminate. Mild tricuspid valve insufficiency. Right ventricular systolic pressure estimated to be 40 mmHg. Mild (1+) aortic valve insufficiency. Mildly dilated aortic root. Ordering Physician: Marvin Hagen Referring Physician: Marvin Hagen Performed By: Michael Rivas and Student 02/23/24 1523 Date Agnes Hastings MD CC: JENNY Hagen; Dr. Allan Rosario MD Date Dictated: 02/23/24 1302 Date Transcribed: 02/23/24 1523 Water Fabricator Operator: Signed Normal [facility] Cardiology Visit Reporton Cardiology Visit Report [facility] [address] [place] [address] OFFICE VISIT Date of Service: 02/16/24 MR#: [id number] Acct: [id number] Name: SALOME SHETH Rep #: [id number] : 1950 Provider: JENNY stanford Age/Sex: 73/M [place] [facility] [place] Status: Signed HPI HPI History of Present Illness Details: This is a 73-year-old white male who presents today for outpatient cardiovascular follow-up. The patient carries a history of paroxysmal atrial fibrillation which he is symptomatic with describes it as shortness of breath. He also has a history of coronary disease status post remote bypass graft surgery with a PIEDRA to the LAD and a radial graft to the first diagonal. He has a 50% proximal LAD stent lesion it is then occluded in the mid LAD and the distal LAD fills via the patent PIEDRA. The circumflex is occluded and fills with collateral flow from the left and right system. The right coronary has terminal diffuse 75% stenoses but is patent. The patient's previous angina was bilateral arm and wrist discomfort. He is not having that at this time intermittently he does have left shoulder weakness but at other times he can raise his arm without incident. Apparently he has had surgical intervention on his elbows and shoulders. The patient's EF was 50% on echo January 2022. He was originally diagnosed with paroxysmal atrial fibrillation when he presented in 2020 with flash pulmonary edema and paroxysmal atrial fibs with rapid ventricular response. He has been maintained on amiodarone 100 mg daily recent lab work done May 2023 showed normal TSH and normal LFTs. [facility] The patient is diabetic this is managed with his primary service he also has a history of hyperlipidemia he is intolerant to all meds. He acknowledges weekly, left-sided chest heaviness. This occurs for 5-10 minutes. He acknowledges palpitations that he describes as fast and pounding. He acknowledges bilateral lower extreme edema. He acknowledges shortness of breath with activity. He denies shortness of breath at rest, orthopnea, cough, or PND. He denies lightheadedness, dizziness, near-syncope, or syncope. He acknowledges fatigue and weakness. Intake Vital Signs 09/28/23 08:51 02/16/24 14:49 Height 5 ft 9 in 5 ft 9 in Weight: 226 lb 229 lb BMI 33.3 33.7 BP 146/69 H 154/71 H Blood Pressure Location Lt brachial Lt brachial Position Sitting Sitting Respiration 18 16 Pulse 51 L 50 L Pulse Source Monitor NIBP Pulse Oximetry (%) 95 Oxygen Delivery Method room air Intake Visit Reasons: Increased fluid retention/edema Windlace Machine Operator Required: No Accompanied by: Is patient in pain?: No Allergies Rdvdipk-MRT-YiA Reductase Inhibitor (Fyokzqo-Bvq-Pvo Reductase Inhibitor) Allergy (Severe, Verified 02/16/24 14:55) Severe mouth sores hydrochlorothiazide Allergy (Intermediate, Verified 02/16/24 14:55) Other Sulfa (Sulfonamide Antibiotics) Allergy (Unknown, Verified 02/16/24 14:55) Unknown levothyroxine sodium (From Synthroid) Allergy (Verified 02/16/24 14:55) mouth sores,diarrhea,stomach cramps fish oil Adverse Reaction (Severe, Verified 02/16/24 14:55) Mouth Sores apixaban (From Eliquis) Adverse Reaction (Intermediate, Verified 02/16/24 14:55) blood in stools morphine Adverse Reaction (Verified 02/16/24 14:55) Nausea/Vom/Diarrhea Medications ???Medication ???Instructions ???Recorded ???Confirmed ???Type aspirin 81 mg tablet 81 mg PO DAILY 10/20/20 02/16/24 History gabapentin 300 mg capsule 600 mg PO QHS nerve pain 10/20/20 02/16/24 History losartan 100 mg tablet 150 mg PO DAILY blood pressure 10/20/20 02/16/24 History pantoprazole 40 mg tablet,delayed 40 mg PO DAILY reflux 10/20/20 02/16/24 History release metoprolol tartrate 25 mg tablet 25 mg PO BID bp 11/08/20 02/16/24 History cholecalciferol (vitamin D3) 125 125 mcg PO DAILY 03/18/21 02/16/24 History mcg (5,000 unit) tablet glipizide 10 mg tablet, extended 10 mg PO DAILY 03/18/21 02/16/24 History release 24 hr cyanocobalamin (vitamin B-12) 2,000 mcg PO DAILY 09/30/21 02/16/24 History 1,000 mcg tablet (Vitamin B-12) metformin 1,000 mg tablet 1,000 mg PO DAILY 09/30/21 02/16/24 History polyethylene glycol 3350 17 17 g PO DAILY 09/30/21 02/16/24 History gram/dose oral powder (Miralax) wheat dextrin 3 gram/3.5 gram oral 1 packet PO DAILY 09/30/21 02/16/24 History powder packet (Benefiber Clear Sugar Free(dextrin)) amlodipine 10 mg tablet 10 mg PO DAILY #30 tabs 02/04/22 02/16/24 Rx isosorbide mononitrate 30 mg 30 mg PO BID 03/11/22 02/16/24 History tablet,extended release 24 hr thyroid (pork) 60 mg tablet 120 mg PO DAILY thyroid 03/11/22 02/16/24 History ([place] Thyroid) amiodarone 200 mg tablet 100 mg PO Q (more content not included)... Normal [facility] BNP,B-Type NATRIURETIC PEPTI Juliana 02-15-2024 Natriuretic peptide B (Bld) [Mass/Vol] 321.0 pg/mL High 0-100 [facility] Comment on above: Performed By: #### L 501.9520, L503.6620, L500.4050, L100.0100 ####[facility] [address] [place], [address] CBC W/Diff, Automatedon 10-2 Absolute Lymph 1.50 X10 3/uL Normal 0.83-4.51 [facility] Comment on above: Performed By: #### L 501.9520, L503.6620, L500.4050, L100.0100 ####[facility] [address] [place], [address] Absolute Neut 2.2 X10 3/uL Normal 2.0-7.7 [facility] Comment on above: Performed By: #### L 501.9520, L503.6620, L500.4050, L100.0100 ####[facility] [address] [place], [address] Basophils/100 WBC (Bld) 0.7 % Normal 0-[address] [facility] Comment on above: Performed By: #### L 501.9520, L503.6620, L500.4050, L100.0100 ####[facility] [address] [place], [address] Eosinophils/100 WBC (Bld) 1.4 % Normal 0-5 [facility] Comment on above: Performed By: #### L 501.9520, L503.6620, L500.4050, L100.0100 ####[facility] [address] [place], [address] Erythrocyte distribution width (RBC) [Ratio] 14.9 % High 11.6-14.6 [facility] Comment on above: Performed By: #### L 501.9520, L503.6620, L500.4050, L100.0100 ####[facility] [address] [place], [address] Hematocrit (Bld) [Volume fraction] 35.0 % Low 40-54 [facility] Comment on above: Performed By: #### L 501.9520, L503.6620, L500.4050, L100.0100 ####[facility] [address] [place], [address] Hemoglobin (Bld) [Mass/Vol] 11.0 g/dL Low 13.0-16.5 [facility] Comment on above: Performed By: #### L 501.9520, L503.6620, L500.4050, L100.0100 ####[facility] [address] [place], [address] IG% 0.500 Normal 0.0-0.9 [facility] Comment on above: Result Comment: IG% - Immature Granulocytes (promyelocytes, myelocytes and metamyelocytes) > 1% indicates that a LEFT SHIFT is Present. Performed By: #### L 501.9520, L503.6620, L500.4050, L100.0100 ####[facility] [address] [place], [address] Lymphocytes/100 WBC (Bld) 35.5 % Normal 19-41 [facility] Comment on above: Performed By: #### L 501.9520, L503.6620, L500.4050, L100.0100 ####[facility] [address] [place], [address] MCH (RBC) [Entitic mass] 27.8 pg Normal 27.0-32.0 [facility] Comment on above: Performed By: #### L 501.9520, L503.6620, L500.4050, L100.0100 ####[facility] [address] [place], [address] MCHC (RBC) [Mass/Vol] 31.4 g/dL Low 32-36 [facility] Comment on above: Performed By: #### L 501.9520, L503.6620, L500.4050, L100.0100 ####[facility] [address] [place], [address] MCV (RBC) [Entitic vol] 88.6 fL Normal 80-[address] [facility] Comment on above: Performed By: #### L 501.9520, L503.6620, L500.4050, L100.0100 ####[facility] [address] [place], [address] Monocytes/100 WBC (Bld) 10.9 % High 0-10 [facility] Comment on above: Performed By: #### L 501.9520, L503.6620, L500.4050, L100.0100 ####[facility] [address] [place], [address] Neutrophils/100 WBC (Bld) 51.0 % Normal 47-70 [facility] Comment on above: Performed By: #### L 501.9520, L503.6620, L500.4050, L100.0100 ####[facility] [address] [place], [address] Nucleated RBC (Bld) [#/Vol] 0 10*3/uL Normal 0-5 [facility] Comment on above: Performed By: #### L 501.9520, L503.6620, L500.4050, L100.0100 ####[facility] [address] [place], [address] Platelet mean volume (Bld) [Entitic vol] 10.4 fL Normal 6.2-12.0 [facility] Comment on above: Performed By: #### L 501.9520, L503.6620, L500.4050, L100.0100 ####[facility] [address] [place], [address] Platelets (Bld) [#/Vol] 222 10*3/uL Normal 150-450 [facility] Comment on above: Performed By: #### L 501.9520, L503.6620, L500.4050, L100.0100 ####[facility] [address] [place], [address] RBC (Bld) [#/Vol] 3.95 10*6/uL Low 4.6-6.2 [facility] Comment on above: Performed By: #### L 501.9520, L503.6620, L500.4050, L100.0100 ####[facility] [address] [place], [address] RDW SD 48.6 fl High 35.1-43.9 [facility] Comment on above: Performed By: #### L 501.9520, L503.6620, L500.4050, L100.0100 ####[facility] [address] [place], [address] WBC (Bld) [#/Vol] 4.2 10*3/uL Low 4.4-11.0 [facility] Comment on above: Performed By: #### L 501.9520, L503.6620, L500.4050, L100.0100 ####[facility] [address] [place], [address] Comprehensive Metabolic [facility] 02-15-2024 Albumin [Mass/Vol] 3.8 g/dL Normal 3.2-5.0 [facility] Comment on above: Performed By: #### L 501.9520, L503.6620, L500.4050, L100.0100 ####[facility] [address] [place], [address] Albumin/Globulin [Mass ratio] 1.2 {ratio} Normal 0.9-2.4 [facility] Comment on above: Performed By: #### L 501.9520, L503.6620, L500.4050, L100.0100 ####[facility] [address] [place], [address] ALK P 74 U/L Normal 45-117 [facility] Comment on above: Performed By: #### L 501.9520, L503.6620, L500.4050, L100.0100 ####[facility] [address] [place], [address] ALT [Catalytic activity/Vol] 25 U/L Normal 16-61 [facility] Comment on above: Performed By: #### L 501.9520, L503.6620, L500.4050, L100.0100 ####[facility] [address] [place], [address] AST [Catalytic activity/Vol] 22 U/L Normal 15-37 [facility] Comment on above: Performed By: #### L 501.9520, L503.6620, L500.4050, L100.0100 ####[facility] [address] [place], [address] Bilirubin [Mass/Vol] 0.50 mg/dL Normal 0.20-1.00 [facility] Comment on above: Result Comment: For patients on eltrombopag therapy, use of Dimension Mckin[place] TBIL is not recommended. Performed By: #### L 501.9520, L503.6620, L500.4050, L100.0100 ####[facility] [address] [place], [address] BUN/CRE 10.1 RATIO Normal 10-20 [facility] Comment on above: Performed By: #### L 501.9520, L503.6620, L500.4050, L100.0100 ####[facility] [address] [place], [address] CA,Total 8.8 mg/dL Normal 8.5-10.1 [facility] Comment on above: Performed By: #### L 501.9520, L503.6620, L500.4050, L100.0100 ####[facility] [address] [place], [address] Chloride [Moles/Vol] 106 mmol/L Normal 98-107 [facility] Comment on above: Performed By: #### L 501.9520, L503.6620, L500.4050, L100.0100 ####[facility] [address] [place], [address] CO2 [Moles/Vol] 27.0 mmol/L Normal 21.0-32.0 [facility] Comment on above: Performed By: #### L 501.9520, L503.6620, L500.4050, L100.0100 ####[facility] [address] [place], [address] Creatinine [Mass/Vol] 1.98 mg/dL High 0.70-1.30 [facility] Comment on above: Result Comment: The validity of the calculated GFR GFRAA in patients over 70 years has not been determined. Clinical correlation is essential. Performed By: #### L 501.9520, L503.6620, L500.4050, L100.0100 ####[facility] [address] [place], [address] EST GFR - AA 43 mL/min Low >60 [facility] Comment on above: Result Comment: Afri can Haitian GFR Calc Performed By: #### L 501.9520, L503.6620, L500.4050, L100.0100 ####[facility] [address] [place], [address] GAP 9 Normal 5-15 [facility] Comment on above: Performed By: #### L 501.9520, L503.6620, L500.4050, L100.0100 ####[facility] [address] [place], [address] GFR/1.73 sq M.predicted among non-blacks MDRD (S/P/Bld) [Vol rate/Area] 35 mL/min/{1.73_m2} Low >[address] [facility] Comment on above: Result Comment: Non- GFR Calc Performed By: #### L 501.9520, L503.6620, L500.4050, L100.0100 ####[facility] [address] [place], [address] Globulin (S) [Mass/Vol] 3.3 g/dL Normal 2.2-4.2 [facility] Comment on above: Performed By: #### L 501.9520, L503.6620, L500.4050, L100.0100 ####[facility] [address] [place], [address] Glucose [Mass/Vol] 134 mg/dL High 74-106 [facility] Comment on above: Result Comment: Fast ing Glucose result greater than or equal to 126 mg/dL suggests DIABETES MELLITUS per A.D.A. criteria. Performed By: #### L 501.9520, L503.6620, L500.4050, L100.0100 ####[facility] [address] [place], [address] Potassium [Moles/Vol] 3.8 mmol/L Normal 3.5-5.1 [facility] Comment on above: Performed By: #### L 501.9520, L503.6620, L500.4050, L100.0100 ####[facility] [address] [place], [address] Sodium [Moles/Vol] 141 mmol/L Normal 136-145 [facility] Comment on above: Performed By: #### L 501.9520, L503.6620, L500.4050, L100.0100 ####[facility] [address] [place], [address] T PROT 7.1 g/dL Normal 6.4-8.2 [facility] Comment on above: Performed By: #### L 501.9520, L503.6620, L500.4050, L100.0100 ####[facility] [address] [place], [address] Urea nitrogen [Mass/Vol] 20 mg/dL High 7-18 [facility] Comment on above: Performed By: #### L 501.9520, L503.6620, L500.4050, L100.0100 ####[facility] [address] [place], [address] Thyroid Stim Hormone (TSH)on 02-15-2024 TSH 1.170 uIU/mL Normal 0.358-3.74 0 [facility] Comment on above: Performed By: #### L 501.9520, L503.6620, L500.4050, L100.0100 ####[facility] [address] [place], [address] CNOVon 02-01-2024 [facility] -------- SALOME SHETH ([id number]) 1950 M Date Time Provider Department 02/01/24 8:00 AM ALL[facility] During your visit today, we recorded the following information about you: Pulse Respiration Blood pressure Weight 60/minute 16/minute 128/88 109.1 kg Allan Rosario MD 02/01/2024 9:33 AM Signed Chief Complaint Patient presents with: 6 Month Exam HPI Salome Sheth is a 73 year old male who presents here today for a 6 month follow up. Here with [facility] . [facility] No urinary issues. Denies getting up at night to urinate. Is complaining for feeling Full/bloated for the last 6 months Denies any changes to his bowel, no vomiting/nausea. He has feeling of pressure in the upper abdomen. Eating and drinking make the bloating worse. He states that he feels bloated all day long. He not hungry or eating much. He feels like he over ate at [facility]. No longer following with Gastro (Dr. Reyes) and Urology (Dr. Foreman). Eats prunes daily in the morning, takes Miralax, Benefiber and Gas-X for GI symptoms/constipation. Has routine PSA checked due to hx of prostate cancer. Gets up once a night to urinate. GERD: Controlled with use of Protonix 40 mg once daily. HTN: Checking BP occ at home. Denies any chest pain, sob, or dizziness. Does follow with [facility], next appt in Mar. On current regimen of Lopressor 25 mg 1 tab po bid, Lasix 40 mg once daily, Losartan 100 mg 1.5 tabs po daily, Imdur 30 mg 1 tab po bid and Amiodarone 200 mg 0.5 tab daily. He has ring that he wears that monitors his heart rate, sleep patterns, etc. CKD: Monitoring through routine labs, was referred to Nephrology. Was to see them after his last visit. Edema: B/L foot and ankle edema, stable on current regimen of Lasix 40 mg 1 tab po prn. Has been advised by Cardio if swelling not improved can take extra 0.5 tab. has been giving pt an extra half tablet of Lasix as needed maybe 2 x a week. The swelling usually will go down at night if he has had the extra half pill. Elevates the head of the bed to sleep, denies any SOB at night when laying down. DM: No longer checking BS at home., might check occ with FBS usually in the 80s. Denies any hypoglycemic episodes. Does have chronic neuropathy, taking Gabapentin 300 mg 2 tabs at bedtime. Has previously seen Podiatry, Dr. Pleitez. On current regimen of Metformin 1,000 mg once daily and Glucotrol 10 mg daily. [facility]. Thyroid: Stable on current regimen of Pork Thyroid 60-65 mg 2 tabs daily. Has reported weight gain at previous visits, still going up. Denies any missed dosages. T PRAKASH: Uses CPAP nightly. Does well with CPAP. Receives supplies through [employer]. Takes Zquil at bedtime. Pain: Chronic neuropathy, RLS and Fibro. Sleep has been difficult due to his knee's bothering him. Overall pain is an issue that seems to keep him awake. Has been previously controlled on current regimen of Gabapentin 300 mg 2 caps at bedtime. Was taking 4 Gabapentin in the past, but trying to cut back on this. Uses Tylenol 2 tabs at bedtime as well. Past medical history, appointments, medications, allergies reviewed. Previous Medical History PAST MEDICAL HISTORY Diagnosis Date AAA (abdominal aortic aneurysm) ([facility]) conflicting results Anxiety Bladder cancer ([facility]) [address] Foreman BPH (benign prostatic hyperplasia) BPPV (benign paroxysmal positional vertigo) Carpal tunnel syndrome s/p release Central sleep apnea Coronary artery disease s/p CABG. Dr. Varela Diabetes mellitus, type II (HCC) Diabetic retinopathy (HCC) OU Diverticulosis Fibromyalgia Hard of hearing Hypertension Hypothyroidism Insomnia Left elbow fracture Lipoma of anterior chest wall s/p resection Myocardial infarction (HCC) x3 Obesity (BMI 30-39.9) PRAKASH (obstructive sleep apnea) on CPAP Pulmonary nodules conflicting studies Restless leg syndrome Rheumatoid arthritis (HCC) Trigger finger Previous Surgical History PAST SURGICAL HISTORY Procedure Laterality Date ARTHRP KNE CONDYLEANDPLATU MEDIALANDLAT COMPARTMENTS Bilateral x4 each CABG (3) VEIN GRAFTS AND ARTERIAL GRAFT(S) 2003 CARPAL TUNNEL Bilateral CHOLECYSTECTOMY open COLONOSCOPY 07/14/2021 No repeat due to age. COLONOSCOPY N/A 07/01/2022 EGD W/O [facility] SPEC VARICIES INJ 07/14/2021 EGD W/O [facility] SPEC VARICIES INJ N/A 07/01/2022 PAST SURGICAL HISTORY OF Left Reverse shoulder replacement PAST SURGICAL HISTORY OF Bilateral rotator cuff tear repair PAST SURGICAL HISTORY OF Left elbow fracture repair PAST SURGICAL HISTORY OF Right elbow-bone chip repair PAST SURGICAL HISTORY OF Left trigger finger release PAST SURGICAL HISTORY OF Left tumor resection from rib PAST SURGICAL HISTORY OF prostat (more content not included)... Normal [facility] CBC W Auto Differential pane l (Bld)on 01-25-2024 Basophils (Bld) [#/Vol] 0.05 10*3/uL Normal <0.11 [facility] Comment on above: Order Comment: Speci men Type: BLOOD SPECIMENOrdering Facility: [facility] Address: [address] [place] [address] Performed By: #### 5 7021-8 ####[facility] LABCLIA [id number] [place] [address] [place] Basophils/100 WBC (Bld) 0.9 % Normal [facility] Comment on above: Order Comment: Speci men Type: BLOOD SPECIMENOrdering Facility: [facility] Address: [address] [place] [address] Performed By: #### 5 7021-8 ####[facility] LABCLIA [id number] [place] [address] [place] Differential cell count method Nom (Bld) Auto Normal [facility] Comment on above: Order Comment: Speci men Type: BLOOD SPECIMENOrdering Facility: [facility] Address: [address] [place] [address] Performed By: #### 5 7021-8 ####[facility] LABCLIA [id number] [place] [address] [place] Eosinophils (Bld) [#/Vol] 0.10 10*3/uL Normal <0.46 [facility] Comment on above: Order Comment: Speci men Type: BLOOD SPECIMENOrdering Facility: [facility] Address: [address] [place] [address] Performed By: #### 5 7021-8 ####[facility] LABCLIA [id number] [place] [address] [place] Eosinophils/100 WBC (Bld) 1.9 % Normal [facility] Comment on above: Order Comment: Speci men Type: BLOOD SPECIMENOrdering Facility: [facility] Address: [address] [place] [address] Performed By: #### 5 7021-8 ####[facility] [id number] [place] [address] [place] Erythrocyte distribution width (RBC) [Ratio] 15.1 % High 11.5-15.0 [facility] Comment on above: Order Comment: Speci men Type: BLOOD SPECIMENOrdering Facility: [facility] Address: [address] [place] [address] Performed By: #### 5 7021-8 ####[facility] [id number] [place] [address] [place] Hematocrit (Bld) [Volume fraction] 35.4 % Low 39.0-51.0 [facility] Comment on above: Order Comment: Speci men Type: BLOOD SPECIMENOrdering Facility: [facility] Address: [address] [place] [address] Performed By: #### 5 7021-8 ####[facility] [id number] [place] [address] [place] Hemoglobin (Bld) [Mass/Vol] 11.1 g/dL Low 13.0-17.0 [facility] Comment on above: Order Comment: Speci men Type: BLOOD SPECIMENOrdering Facility: [facility] Address: [address] [place] [address] Performed By: #### 5 7021-8 ####[facility] [id number] [place] [address] [place] Immature granulocytes (Bld) [#/Vol] 10*3/uL Normal <0.10 [facility] Comment on above: Order Comment: Speci men Type: BLOOD SPECIMENOrdering Facility: [facility] Address: [address] [place] [address] Performed By: #### 5 7021-8 ####[facility] LABCL[facility] [id number] [place] [address] [place] Immature granulocytes/100 WBC (Bld) 0.2 % Normal [facility] Comment on above: Order Comment: Speci men Type: BLOOD SPECIMENOrdering Facility: [facility] Address: [address] [place] [address] Performed By: #### 5 7021-8 ####[facility] LABCLIA [id number] [place] [address] [place] Lymphocytes (Bld) [#/Vol] 1.60 10*3/uL Normal 1.00-4.0 0 [facility] Comment on above: Order Comment: Speci men Type: BLOOD SPECIMENOrdering Facility: [facility] Address: [address] [place] [address] Performed By: #### 5 7021-8 ####[facility] [id number] [place] [address] [place] Lymphocytes/100 WBC (Bld) 29.9 % Normal [facility] Comment on above: Order Comment: Speci men Type: BLOOD SPECIMENOrdering Facility: [facility] Address: [address] [place] [address] Performed By: #### 5 7021-8 ####[facility] [id number] [place] [address] [place] MCH (RBC) [Entitic mass] 27.6 pg Normal 26.0-34.0 [facility] Comment on above: Order Comment: Speci men Type: BLOOD SPECIMENOrdering Facility: [facility] Address: [address] [place] [address] Performed By: #### 5 7021-8 ####[facility] [id number] [place] [address] [place] MCHC (RBC) [Mass/Vol] 31.4 g/dL Normal 30.5-36.0 [facility] Comment on above: Order Comment: Speci men Type: BLOOD SPECIMENOrdering Facility: [facility] Address: [address] [place] [address] Performed By: #### 5 7021-8 ####[facility]CL[facility] [id number] [place] [address] [place] MCV (RBC) [Entitic vol] 88.1 fL Normal 80.0-100.0 [facility] Comment on above: Order Comment: Speci men Type: BLOOD SPECIMENOrdering Facility: [facility] Address: [address] [place] [address] Performed By: #### 5 7021-8 ####[facility] [id number] [place] [address] [place] Monocytes (Bld) [#/Vol] 0.56 10*3/uL Normal <0.87 [facility] Comment on above: Order Comment: Speci men Type: BLOOD SPECIMENOrdering Facility: [facility] Address: [address] [place] [address] Performed By: #### 5 7021-8 ####[facility] [id number] [place] [address] [place] Monocytes/100 WBC (Bld) 10.5 % Normal [facility] Comment on above: Order Comment: Speci men Type: BLOOD SPECIMENOrdering Facility: [facility] Address: [address] [place] [address] Performed By: #### 5 7021-8 ####[facility] [id number] [place] [address] [place] Neutrophils (Bld) [#/Vol] 3.03 10*3/uL Normal 1.45-7.5 0 [facility] Comment on above: Order Comment: Speci men Type: BLOOD SPECIMENOrdering Facility: [facility] Address: [address] [place] [address] Performed By: #### 5 7021-8 ####[facility]CL[facility] [id number] [place] [address] [place] Neutrophils/100 WBC (Bld) 56.6 % Normal [facility] Comment on above: Order Comment: Speci men Type: BLOOD SPECIMENOrdering Facility: [facility] Address: [address] [place] [address] Performed By: #### 5 7021-8 ####[facility]CL[facility] [id number] [place] [address] [place] Nucleated RBC (Bld) [#/Vol] 10*3/uL Normal <0.01 [facility] Comment on above: Order Comment: Speci men Type: BLOOD SPECIMENOrdering Facility: [facility] Address: [address] [place] [address] Performed By: #### 5 7021-8 ####[facility] [id number] [place] [address] [place] Nucleated RBC/100 WBC (Bld) [Ratio] 0.0 /100 WBC Normal [facility] Comment on above: Order Comment: Speci men Type: BLOOD SPECIMENOrdering Facility: [facility] Address: [address] [place] [address] Performed By: #### 5 7021-8 ####[facility] [id number] [place] [address] [place] Platelet mean volume (Bld) [Entitic vol] 10.4 fL Normal 9.0-12.7 [facility] Comment on above: Order Comment: Speci men Type: BLOOD SPECIMENOrdering Facility: [facility] Address: [address] [place] [address] Performed By: #### 5 7021-8 ####[facility] [id number] [place] [address] [place] Platelets (Bld) [#/Vol] 239 10*3/uL Normal 150-400 [facility] Comment on above: Order Comment: Speci men Type: BLOOD SPECIMENOrdering Facility: [facility] Address: [address] [place] [address] Performed By: #### 5 7021-8 ####[facility]CL[facility] [id number] [place] [address] [place] RBC (Bld) [#/Vol] 4.02 10*6/uL Low 4.20-6.00 [facility] Comment on above: Order Comment: Speci men Type: BLOOD SPECIMENOrdering Facility: [facility] Address: [address] [place] [address] Performed By: #### 5 7021-8 ####[facility]CLIA [id number] [place] [address] [place] WBC (Bld) [#/Vol] 5.35 10*3/uL Normal 3.70-11.00 [facility] Comment on above: Order Comment: Speci men Type: BLOOD SPECIMENOrdering Facility: [facility] Address: [address] [place] [address] Performed By: #### 5 7021-8 ####[facility] LABCLIA [id number] [place] [address] [place] Comprehensive metabolic 2000 panelon 01-25-2024 Albumin [Mass/Vol] 4.3 g/dL Normal 3.9-4.9 [facility] Comment on above: Order Comment: Speci men Type: BLOOD SPECIMENOrdering Facility: [facility] Address: [address] [place] [address] Performed By: #### 3 016-3, 68905-8, 32623-7 ####[facility]CL[facility] [id number] [place] [address] [place] ALP [Catalytic activity/Vol] 86 U/L Normal 38-113 [facility] Comment on above: Order Comment: Speci men Type: BLOOD SPECIMENOrdering Facility: [facility] Address: [address] [place] [address] Performed By: #### 3 016-3, , ####[facility]CL[facility] [id number] [place] [address] [place] ALT [Catalytic activity/Vol] 17 U/L Normal 10-54 [facility] Comment on above: Order Comment: Speci men Type: BLOOD SPECIMENOrdering Facility: [facility] Address: [address] [place] [address] Performed By: #### 3 016-3, , ####[facility]CL[facility] [id number] [place] [address] [place] Anion gap [Moles/Vol] 14 mmol/L Normal 8-15 [facility] Comment on above: Order Comment: Speci men Type: BLOOD SPECIMENOrdering Facility: [facility] Address: [address] [place] [address] Performed By: #### 3 016-3, , ####[facility]CL[facility] [id number] [place] [address] [place] AST [Catalytic activity/Vol] 25 U/L Normal 14-40 [facility] Comment on above: Order Comment: Speci men Type: BLOOD SPECIMENOrdering Facility: [facility] Address: [address] [place] [address] Performed By: #### 3 016-3, 04764-2, ####[facility]CL[facility] [id number] [place] [address] [place] Bilirubin [Mass/Vol] 0.3 mg/dL Normal 0.2-1.3 [facility] Comment on above: Order Comment: Speci men Type: BLOOD SPECIMENOrdering Facility: [facility] Address: [address] [place] [address] Performed By: #### 3 016-3, 80760-9, 88540-1 ####[facility]CL[facility] [id number] [place] [address] [place] Calcium [Mass/Vol] 9.9 mg/dL Normal 8.5-10.2 [facility] Comment on above: Order Comment: Speci men Type: BLOOD SPECIMENOrdering Facility: [facility] Address: [address] [place] [address] Performed By: #### 3 016-3, 94515-6, 51054-9 ####[facility]CLIA [id number] [place] [address] [place] Chloride [Moles/Vol] 103 mmol/L Normal 98-107 [facility] Comment on above: Order Comment: Speci men Type: BLOOD SPECIMENOrdering Facility: [facility] Address: [address] [place] [address] Performed By: #### 3 016-3, 72312-0, 67415-3 ####[facility]CLIA [id number] [place] [address] [place] CO2 [Moles/Vol] 25 mmol/L Normal 22-30 [facility] Comment on above: Order Comment: Speci men Type: BLOOD SPECIMENOrdering Facility: [facility] Address: [address] [place] [address] Performed By: #### 3 016-3, 49092-8, 36089-1 ####[facility]CL[facility] [id number] [place] [address] [place] Creatinine [Mass/Vol] 1.80 mg/dL High 0.73-1.22 [facility] Comment on above: Order Comment: Speci men Type: BLOOD SPECIMENOrdering Facility: [facility] Address: [address] [place] [address] Performed By: #### 3 016-3, 59196-6, 18555-5 ####[facility]CLIA [id number] [place] [address] [place] Creatinine and Glomerular filtration rate.predicted panel (S/P/Bld) 39 mL/min/1.73m??? Low >=60 [facility] Comment on above: Order Comment: Nader tsang Type: BLOOD SPECIMENOrdering Facility: [facility] Address: [address] [place] [address] Result Comment: Teagan mated Glomerular Filtration Rate (eGFR) is calculated using the 2020 CKD-EPI creatinine equation. This equation utilizes serum creatinine, sex, and age as parameters. The creatinine assay has traceable calibration to isotope dilution-mass spectrometry. Refer to KDIGO guidelines for clinical interpretation. In patients with unstable renal function, e.g. those with acute kidney injury, the eGFR may not accurately reflect actual GFR. Performed By: #### 3 016-3, 84362-0, 06488-0 ####[facility]CLIA [id number] [place] [address] [place] Glucose [Mass/Vol] 122 mg/dL High 74-99 [facility] Comment on above: Order Comment: Nader tsang Type: BLOOD SPECIMENOrdering Facility: [facility] Address: [address] [place] [address] Result Comment: The [place] Diabetes Association (ADA) provides guidance for cutoff values for fasting glucose and random glucose. The ADA defines fasting as no caloric intake for at least 8 hours. Fasting plasma glucose results between 100 to 125 mg/dL indicate increased risk for diabetes (prediabetes). Fasting plasma glucose results greater than or equal to 126 mg/dL meet the criteria for diagnosis of diabetes. In the absence of unequivocal hyperglycemia, results should be confirmed by repeat testing. In a patient with classic symptoms of hyperglycemia or hyperglycemic crisis, random plasma glucose results greater than or equal to 200 mg/dL meet the criteria for diagnosis of diabetes. Reference: Standards of Medical Care in Diabetes 2016, [place] Diabetes Association. Diabetes Care. 2016.39(Suppl 1). Performed By: #### 3 016-3, , ####[facility]CL[facility] [id number] [address] [address] [place] Potassium [Moles/Vol] 4.2 mmol/L Normal 3.7-5.1 [facility] Comment on above: Order Comment: Speci men Type: BLOOD SPECIMENOrdering Facility: [facility] Address: [address] [place] [address] Performed By: #### 3 016-3, , ####[facility]CL[facility] [id number] [place] [address] [place] Protein [Mass/Vol] 7.2 g/dL Normal 6.3-8.0 [facility] Comment on above: Order Comment: Speci men Type: BLOOD SPECIMENOrdering Facility: [facility] Address: [address] [place] [address] Performed By: #### 3 016-3, , ####[facility]CL[facility] [id number] [place] [address] [place] Sodium [Moles/Vol] 142 mmol/L Normal 136-144 [facility] Comment on above: Order Comment: Speci men Type: BLOOD SPECIMENOrdering Facility: [facility] Address: [address] [place] [address] Performed By: #### 3 016-3, , ####[facility]CL[facility] [id number] [address] [address] [place] Urea nitrogen [Mass/Vol] 15 mg/dL Normal 9-24 [facility] Comment on above: Order Comment: Speci men Type: BLOOD SPECIMENOrdering Facility: [facility] Address: [address] [place] [address] Performed By: #### 3 016-3, 11452-3, 19041-2 ####[facility]CL[facility] [id number] [address] [place] HbA1c (Bld)on 01-25-2024 Average glucose Estimated from glycated hemoglobin (Bld) [Mass/Vol] 143 mg/dL Normal [facility] Comment on above: Order Comment: Nader tsang Type: BLOOD SPECIMENOrdering Facility: [facility] Address: [address] [place] [address] Result Comment: eAG: (Estimated average glucose) is a calculated value from HgbA1c and is medical office representative of the average blood glucose level in the last 2-3 month period. Performed By: #### 5 5454-3 ####[facility] [id number] [address] OF [facility] HbA1c (Bld) [Mass fraction] 6.6 % High 4.3-5.6 [facility] Comment on above: Order Comment: Nader tsang Type: BLOOD SPECIMENOrdering Facility: [facility] Address: [address] [place] [address] Result Comment: [place] Diabetes Association guidelines indicate that patients with HgbA1c in the range 5.7-6.4% are at increased risk for development of diabetes, and intervention by lifestyle modification may be beneficial. HgbA1c greater or equal to 6.5% is considered diagnostic of diabetes. Performed By: #### 5 5454-3 ####[facility]CL[facility] [id number] [address] [place] Lipid 1996 panelon 4 Cholesterol [Mass/Vol] 232 mg/dL High <200 Cl [facility] Comment on above: Order Comment: Nader tsang Type: BLOOD SPECIMENOrdering Facility: [facility] Address: [address] [place] [address] Result Comment: <200 mg/dL, Desirable 200-239 mg/dL, Borderline high >239 mg/dL, High Performed By: #### 3 016-3, 02012-3, 44711-8 ####[facility]CL[facility] [id number] [address] [place] Cholesterol in HDL [Mass/Vol] 33 mg/dL Low >39 [facility] Comment on above: Order Comment: Chayobing tsang Type: BLOOD SPECIMENOrdering Facility: [facility] Address: [address] [place] [address] Result Comment: 40-5 9 mg/dL, Acceptable >59 mg/dL, High: Negative risk factor for coronary heart disease <40 mg/dL, Low: Positive risk factor for coronary heart disease Performed By: #### 3 016-3, 94193-2, 69551-3 ####[facility]CL[facility] [id number] [address] STATES OF [facility] Cholesterol in LDL [Mass/Vol] 150 mg/dL High <100 [facility] Comment on above: Order Comment: Nader trinh Type: BLOOD SPECIMENOrdering Facility: [facility] Address: [address] [place] [address] Result Comment: <100 mg/dL, Optimal 100-129 mg/dL, Near optimal/above optimal 130-159 mg/dL, Borderline high 160-189 mg/dL, High >189 mg/dL, Very high Secondary prevention optimal LDL Cholesterol levels are recommended to be < 70 mg/dL Performed By: #### 3 016-3, 83924-3, 56639-7 ####[facility] [id number] [address] [place] Cholesterol in LDL/Cholesterol in HDL [Mass ratio] 4.55 {ratio} High <2.54 [facility] Comment on above: Order Comment: Nader tsang Type: BLOOD SPECIMENOrdering Facility: [facility] Address: [address] [place] [address] Result Comment: Ike vera: 1. National Cholesterol Education Program ATP III Guideline At-A-Glance Quick Desk Reference: National Heart, Lung, and Blood [place]. National Institutes of Health. 2001: NIH Publication No. 01-3305. 2. An International Atherosclerosis Society position paper: global recommendations for the management of dyslipidemia: executive summary, Atherosclerosis. 2014: 232(2):410-413. Performed By: #### 3 016-3, 48775-7, 28033-0 ####[facility]CL[facility] [id number] [place] [address] [place] Cholesterol in VLDL [Mass/Vol] 49 mg/dL High <30 [facility] Comment on above: Order Comment: Speci men Type: BLOOD SPECIMENOrdering Facility: [facility] Address: [address] [place] [address] Performed By: #### 3 016-3, 75883-2, ####[facility] [id number] [place] [address] [place] Cholesterol non HDL [Mass/Vol] 199 mg/dL High <130 [facility] Comment on above: Order Comment: Speci men Type: BLOOD SPECIMENOrdering Facility: [facility] Address: [address] [place] [address] Result Comment: <130 mg/dL, Optimal 130-159 mg/dL, Near optimal/above optimal 160-189 mg/dL, Borderline high 190-219 mg/dL, High >219 mg/dL, Very high Secondary prevention optimal non HDL Cholesterol levels are recommended to be <100 mg/dL Performed By: #### 3 016-3, 27423-8, ####[facility] [id number] [place] [address] [place] Cholesterol.total/Choleste rol in HDL [Mass ratio] 7.03 {ratio} High <5.10 [facility] Comment on above: Order Comment: Speci men Type: BLOOD SPECIMENOrdering Facility: [facility] Address: [address] [place] [address] Performed By: #### 3 016-3, 68152-8, ####[facility]CL[facility] [id number] [place] [address] [place] FASTING TIME 12 hrs Normal [facility] Comment on above: Order Comment: Speci men Type: BLOOD SPECIMENOrdering Facility: [facility] Address: [address] [place] [address] Performed By: #### 3 016-3, 38084-3, 30697-1 ####[facility]CL[facility] [id number] [place] [address] [place] Triglyceride [Mass/Vol] 246 mg/dL High <150 C [facility] Comment on above: Order Comment: Speci men Type: BLOOD SPECIMENOrdering Facility: [facility] Address: [address] [place] [address] Result Comment: <150 mg/dL, Normal 150-199 mg/dL, Borderline high 200-499 mg/dL, High >499 mg/dL, Very high Performed By: #### 3 016-3, 57321-8, 56557-5 ####[facility] [id number] [place] [address] [place] TSH SerPl-aCncon 01-25-2024 TSH Qn 1.510 m[IU]/L Normal 0.270-4.20 0 [facility] Comment on above: Order Comment: Speci men Type: BLOOD SPECIMENOrdering Facility: [facility] Address: [address] [place] [address] Performed By: #### 3 016-3, 67899-3, 50425-5 ####[facility] [id number] [place] [address] [place] Cytology report of Body flui d Cyto stainOrdered By: Eugene Foreman on 07-06-2023 Cytology report Cyto stain Doc (Body fld) SEE PATHOLOGY REPORT [facility] Comment on above: Specimen submitted t o Anatomical Pathology Department for testing. No Panel InformationOrdered By: Eugene Foreman on 07-06-2023 Prostate Specific Antigen Screen 0.81 ng/mL 0.00-4.00 [facility] Comment on above: This test was perfor med using the TPSA assay method for theMijn [employer] chemistry system. Values obtained with differentassay methods cannot be used interchangably.When changing PSA assays in the course of monitoring apatient, additional sequential testing should be carriedout to confirm baseline values. Basophil percentageOrdered B y: Edel Botello on 06-07-2023 Bilirubin [Mass/Vol] 0.50 mg/dL 0.20-1.00 [facility] Comment on above: For patients on eltr ombopag therapy, use of Dimension Mckinney TBIL is not recommended. Chloride [Moles/Vol] 107 mmol/L 98-107 [facility] Glucose [Mass/Vol] 163 mg/dL 74-106 [facility] Comment on above: Fasting Glucose resu lt greater than or equal to 126 mg/dL suggests DIABETES MELLITUS per A.D.A. criteria. Hemoglobin (Bld) [Mass/Vol] 11.3 g/dL 13.0-16.5 [facility] Potassium [Moles/Vol] 4.6 mmol/L 3.5-5.1 [facility] Protein [Mass/Vol] 7.5 g/dL 6.4-8.2 [facility] Sodium [Moles/Vol] 139 mmol/L 136-145 [facility] WBC (Bld) [#/Vol] 5.0 10*3/uL 4.4-11.0 [facility] Determination of erythrocyte mean corpuscular volume (MCV)Ordered By: Edel Botello on 06-07-2023 MCV (RBC) [Entitic vol] 90.3 fL 80-[address] [facility] Erythrocyte distribution wid th ratioOrdered By: Edel Botello on 06-07-2023 Erythrocyte distribution width (RBC) [Ratio] 15.0 % 11.6-14.6 [facility] Erythrocyte distribution wid th standard deviationOrdered By: Edel Botello on 06-07-2023 Erythrocyte distribution width (RBC) [Entitic vol] 49.3 fL 35.1-43.9 [facility] Hematocrit Auto (Bld) [Volum e fraction]Ordered By: Edel Botello on 06-07-2023 Hematocrit (Bld) [Volume fraction] 35.3 % 40-54 [facility] Laboratory - Chemistry and C hemistry - challengeOrdered By: Edel Botello on 06-07-2023 Albumin/Globulin [Mass ratio] 1.1 {ratio} 0.9-2.4 [facility] ALP [Catalytic activity/Vol] 70 U/L 45-117 [facility] ALT [Catalytic activity/Vol] 18 U/L 16-61 [facility] CO2 [Moles/Vol] 26.0 mmol/L 21.0-32.0 [facility] Globulin (S) [Mass/Vol] 3.6 g/dL 2.2-4.[address] [facility] Natriuretic peptide B (Bld) [Mass/Vol] 319.5 pg/mL 0-100 [facility] Urea nitrogen/Creatinine [Mass ratio] 10.7 mg/mg 10-20 [facility] Laboratory - Hematology and Cell countsOrdered By: Edel Botello on 06-07-2023 MCH (RBC) [Entitic mass] 28.9 pg 27.0-32.0 [facility] MCHC (RBC) [Mass/Vol] 32.0 g/dL 32-36 [facility] Platelet mean volume (Bld) [Entitic vol] 10.1 fL 6.2-12.0 [facility] Platelets (Bld) [#/Vol] 247 10*3/uL 150-450 [facility] No Panel InformationOrdered By: Edel Botello on 06-07-2023 Estimated GFR (MDRD) Amer 49 mL/min >60 [facility] Comment on above: GFR Calc Estimated GFR (MDRD) Non-Af Amer 40 mL/min >60 [facility] Comment on above: Non- GFR Calc RBC Auto (Bld) [#/Vol]Ordere d By: Edel Botello on 06-07-2023 RBC (Bld) [#/Vol] 3.91 10*6/uL 4.6-6.2 [place] [facility] [place] Serum or plasma calcium kaylin urement (mass/volume)Ordered By: dEel Botello on 06-07-2023 Calcium [Mass/Vol] 9.1 mg/dL 8.5-10.[address] [facility] [place] Serum or plasma creatinine m easurement (mass/volume)Ordered By: Edel Botello on 06-07-2023 Creatinine [Mass/Vol] 1.77 mg/dL 0.70-1.30 [facility] Comment on above: The validity of the calculated GFR & GFRAA in patients over 70 years has not been determined. Clinical correlation is essential. Serum or plasma thyroid stim ulating hormone (TSH) measurement (units/volume)Ordered By: Edel Botello on 06-07-2023 TSH Qn 1.47 uIU/mL 0.358-3.74 [facility] Serum or plasma urea nitroge n measurement (mass/volume)Ordered By: Edel Botello on 06-07-2023 Urea nitrogen [Mass/Vol] 19 mg/dL 7-18 [facility] Thin prep Papanicolaou smear with manual screeningOrdered By: Edel Botello on 06-07-2023 Thin prep Papanicolaou smear with manual screening 3.9 g/dL 3.2-5.0 [facility] Thin prep Papanicolaou smear with manual screening 20 U/L 15-37 [facility] Thin prep Papanicolaou smear with manual screening 6 5-15 [facility] No Panel InformationOrdered By: Dr. Foreman on 07-13-2022 Prostate Specific Antigen Screen 0.89 ng/mL 0.00-4.00 [facility] Comment on above: This test was perfor med using the TPSA assay method for theLucibelQiro chemistry system. Values obtained with differentassay methods cannot be used interchangably.When changing PSA assays in the course of monitoring apatient, additional sequential testing should be carriedout to confirm baseline values. Glucose Glucometer (BldC) [M ass/Vol]Ordered By: Yoshi Reyes on 07-01-2022 Glucose [Mass/Vol] 121 mg/dL 74-106 [facility] Comment on above: MANAGEMENT OF PATIEN T CARE PER NURSING PROTOCOL No Panel InformationOrdered By: Ruma Oreilly on 05-01-2022 Stool Calprotectin 162 ug/g 0-120 [facility] Comment on above: Concentration Interp retation Follow-Up<16 - 50 ug/g Normal None>50 -120 ug/g Borderline Re-evaluate in 4-6 weeks >120 ug/g Abnormal Repeat as clinically indicatedPerformed at: [facility] [id number] Director: Mateusz Nolasco PhD, Phone: [phone] at: [employer] [id number] Director: Tino Blanc MD, Phone: [phone] Stool Neutral Fats Normal . [facility] Comment on above: Normal (<60 Droplets /HPF) Stool Pancreatic Elastase 145 >200 [facility] Comment on above: Result Units: ug Shaylee st./g Severe Pancreatic Insufficiency: <100 Moderate Pancreatic Insufficiency: 100 - 200 Normal: >200Performed at: [facility] [id number] Director: Tino Blanc MD, Phone: [phone] Qualitative fecal fat or lip idsOrdered By: Ruma Oreilly on 05-01-2022 Fat Ql (Stl) Increased . [facility] Comment on above: Normal (<100 Droplet s/HPF) Stool lactoferrin detection by immunoassayOrdered By: Ruma Oreilly on 05-01-2022 Lactoferrin IA Ql (Stl) W [facility] Absolute lymphocyte countOrd ered By: Ruma Oreilly on 04-29-2022 Lymphocytes Auto (Unsp spec) [#/Vol] 1.70 10*3/uL 0.83-4.51 [facility] Albumin Elph [Mass/Vol]Order ed By: Ruma Oreilly on 04-29-2022 Albumin [Mass/Vol] 4.0 g/dL 2.9-4.4 [facility] Atypical perinuclear antineu trophil cytoplasmic antibodies measurementOrdered By: Ruma Oreilly on 04-29-2022 Neutrophil cytoplasmic Ab.perinuclear.atypical IF (S) [Titer] <1:20 titer Neg:<1:20 [facility] Comment on above: The atypical pANCA p attern has been observed in asignificant percentage of patients with ulcerative colitis,primary sclerosing cholangitis and autoimmune hepatitis. Basophil percentageOrdered B y: Ruma Oreilly on 04-29-2022 Amylase [Catalytic activity/Vol] 67 U/L 25-115 [facility] Basophil percentage 0.2 AI 0.0-0.9 [facility] Basophil percentage < 0.2 AI 0.0-0.9 [facility] Basophils/100 WBC (Bld) 0.6 % 0-[address] [facility] Bilirubin [Mass/Vol] 0.50 mg/dL 0.20-1.00 [facility] Comment on above: For patients on eltr ombopag therapy, use of Dimension Mck[place] TBIL is not recommended. Chloride [Moles/Vol] 101 mmol/L 98-107 [facility] Eosinophils/100 WBC (Bld) 1.0 % 0-5 [facility] Glucose [Mass/Vol] 77 mg/dL 74-106 [facility] LDH [Catalytic activity/Vol] 207 U/L 87-241 [facility] Neutrophils (Bld) [#/Vol] 2.8 10*3/uL 2.0-7.7 [facility] Neutrophils/100 WBC (Bld) 54.1 % 47-70 [facility] Potassium [Moles/Vol] 4.0 mmol/L 3.5-5.1 [facility] Protein [Mass/Vol] 8.0 g/dL 6.4-8.2 [facility] Sodium [Moles/Vol] 137 mmol/L 136-145 [facility] WBC (Bld) [#/Vol] 5.1 10*3/uL 4.4-11.0 [facility] Blood erythrocytes count (nu mber/volume)Ordered By: Ruma Oreilly on 04-29-2022 RBC (Bld) [#/Vol] 4.15 10*6/uL 4.6-6.2 [facility] Blood hemoglobin measurement (mass/volume)Ordered By: Ruma Oreilly on 04-29-2022 Hemoglobin (Bld) [Mass/Vol] 12.1 g/dL 13.0-16.5 [facility] Blood lymphocytes/100 leukoc ytesOrdered By: Ruma Oreilly on 04-29-2022 Lymphocytes/100 WBC (Bld) 33.3 % 19-41 [facility] Blood monocytes/100 leukocyt esOrdered By: Ruma Oreilly on 04-29-2022 Monocytes/100 WBC (Bld) 11.0 % 0-10 [facility] Blood platelet mean volumeOr dered By: Ruma Oreilly on 04-29-2022 Platelet mean volume (Bld) [Entitic vol] 9.9 fL 6.2-12.0 [facility] Determination of erythrocyte mean corpuscular volume (MCV)Ordered By: Ruma Oreilly on 04-29-2022 MCV (RBC) [Entitic vol] 87.5 fL 80-[address] [facility] Erythrocyte sedimentation ra teOrdered By: Ruma Oreilly on 04-29-2022 ESR (Bld) [Velocity] 26 mm/h 0-20 [facility] Hematocrit Auto (Bld) [Volum e fraction]Ordered By: Ruma Oreilly on 04-29-2022 Hematocrit (Bld) [Volume fraction] 36.3 % 40-54 [facility] Interpretation of serum or p lasma protein pattern by immunofixation (narrative resultOrdered By: Ruma Oreilly on 04-29-2022 Protein Fractions Immunofixation [place] [Interp] See comment [facility] Comment on above: Result: Not Observed Iron measurement (mass/mass) Ordered By: Ruma Oreilly on 04-29-2022 Iron (Unsp spec) [Mass/Mass] 68 ug/dL 65-175 [facility] Laboratory - Chemistry and C hemistry - challengeOrdered By: Ruma Oreilly on 04-29-2022 ALP [Catalytic activity/Vol] 71 U/L 45-117 [facility] ALT [Catalytic activity/Vol] 26 U/L 16-61 [facility] CO2 [Moles/Vol] 29.0 mmol/L 21.0-32.0 [facility] Lipase [Catalytic activity/Vol] 118 U/L 73-393 [facility] Urea nitrogen/Creatinine [Mass ratio] 16.7 mg/mg 10-20 [facility] Laboratory - Hematology and Cell countsOrdered By: Ruma Oreilly on 04-29-2022 Erythrocyte distribution width (RBC) [Entitic vol] 46.8 fL 35.1-43.9 [facility] Erythrocyte distribution width (RBC) [Ratio] 14.6 % 11.6-14.6 [facility] Immature granulocytes/100 WBC (Bld) 0.000 % 0.0-0.9 [facility] Comment on above: IG% - Immature Granu locytes (promyelocytes, myelocytes and metamyelocytes) > 1% indicates that a LEFT SHIFT is Present. MCH (RBC) [Entitic mass] 29.2 pg 27.0-32.0 [facility] Nucleated RBC/100 WBC (Bld) [Ratio] 0 % 0-5 [facility] MCHC Auto (RBC) [Mass/Vol]Or dered By: Ruma Oreilly on 04-29-2022 MCHC (RBC) [Mass/Vol] 33.3 g/dL 32-36 [facility] No Panel InformationOrdered By: Ruma Oreilly on 04-29-2022 Addendum Document Comment . [facility] Comment on above: Protein electrophore sis scan will follow via computer,mail, or insurance sales professional delivery. Centromere B Antibody <0.2 AI 0.0-0.9 [facility] Endomysial IgA Antibody Negative Negative W [facility] Estimated GFR (MDRD) Amer 48 mL/min >60 [facility] Comment on above: GFR Calc Estimated GFR (MDRD) Non-Af Amer 40 mL/min >60 [facility] Comment on above: Non- GFR Calc Immunoglobulin E 121 IU/mL 6-495 [facility] Miscellaneous Test See comment [facility] Comment on above: TEST RESULT LIMITSIB D Expanded Panel Anai 17 units 0-50 Negative <45 Equivocal 45 - 50 Positive >50 ACCA 37 units 0-90 Negative <80 Equivocal 80 - 90 Positive >90 ALCA 14 units 0-60 Negative <55 Equivocal 55 - 60 Positive >60 AMCA 53 units 0-100 Negative < 90 Equivocal 90 - 100 Positive >100 This test was developed and its performance characteristics determined by [employer]. It has not been cleared or approved by the Food and Drug Administration. The FDA has determined that such clearance or approval is not necessary.Atypical pANCA Negative Negative Comments Pattern is not suggestive of Inflammatory Bowel Disease TESTING PERFORMED AT [facility]. ORIGINAL REPORT ON FILE IN LAB CONTAINS ADDITIONAL TEST SITE INFORMATION. LAMINATION TECHNICIAN Antibody <0.2 AI 0.0-0.9 [facility] Total Iron Binding Capacity 410 ug/dL 250-450 [facility] Platelets bldOrdered By: Palma Oreilly on 04-29-2022 Platelets (Bld) [#/Vol] 254 10*3/uL 150-450 [facility] Serum DNA double strand anti body assay (units/volume)Ordered By: Ruma Oreilly on 04-29-2022 DNA double strand Ab Qn (S) 1 [IU]/mL 0-9 [facility] Comment on above: Negative <5 Equivoca l 5 - 9 Positive >9 Serum Shanelle-1 antibody assay (u nits/volume)Ordered By: Ruma Oreilly on 04-29-2022 Shanelle-1 extractable nuclear Ab Qn (S) <0.2 AI 0.0-0.9 [facility] Serum Scl-70 extractable nuc lear antibody assay (units/volume)Ordered By: Ruma Oreilly on 04-29-2022 SCL-70 extractable nuclear Ab Qn (S) <0.2 AI 0.0-0.9 [facility] Serum Paul extractable nucl ear antibody detectionOrdered By: Ruma Oreilly on 04-29-2022 Paul extractable nuclear Ab Ql (S) <0.2 AI 0.0-0.9 [facility] Serum [id number] measu rement by electrophoresisOrdered By: Ruma Oreilly on 04-29-2022 Alpha 1 globulin Elph [Mass/Vol] 0.2 g/dL 0.0-0.4 [facility] Alpha 1 globulin Elph [Mass/Vol] 1.0 g/dL 0.4-1.0 [facility] Serum classic neutrophil cyt oplasmic antibody assay (units/volume)Ordered By: Ruma Oreilly on 04-29-2022 Neutrophil cytoplasmic Ab.classic Qn (S) <1:20 titer Neg:<1:20 [facility] Serum globulin measurement ( mass/volume)Ordered By: Ruma Oreilly on 04-29-2022 Globulin (S) [Mass/Vol] 3.5 g/dL 2.2-3.[address] [facility] Serum or plasma C reactive p rotein measurement (mass/volume)Ordered By: Ruma Oreilly on 04-29-2022 CRP [Mass/Vol] mg/L 0.0-3.0 [facility] Comment on above: C-Reactive Protein ( CRP) provides useful information for thediagnosis, therapy and monitoring of inflammatory processesand associated diseases. For the evaluation of Relative Riskfor Cardiovascular Disease, a High Sensitivity CRP (HSCRP)should be ordered. Serum or plasma IgA measurem ent (mass/volume)Ordered By: Ruma Oreilly on 04-29-2022 IgA [Mass/Vol] 338 mg/dL 61-437 [facility] Serum or plasma IgG measurem ent (mass/volume)Ordered By: Ruma Oreilly on 04-29-2022 IgG [Mass/Vol] 857 mg/dL 603-1613 [facility] Serum or plasma IgM measurem ent (mass/volume)Ordered By: Ruma Oreilly on 04-29-2022 IgM [Mass/Vol] 56 mg/dL 15-143 [facility] Serum or plasma albumin kaylin urement (mass/volume)Ordered By: Ruma Oreilly on 04-29-2022 Albumin [Mass/Vol] 4.1 g/dL 3.2-5.0 [facility] Serum or plasma albumin/glob ulin mass ratioOrdered By: Ruma Oreilly on 04-29-2022 Albumin/Globulin [Mass ratio] 1.1 {ratio} 0.9-2.4 [facility] Serum or plasma beta globuli n measurement by electrophoresis (mass/volume)Ordered By: Ruma Oreilly on 04-29-2022 Beta globulin Elph [Mass/Vol] 1.4 g/dL 0.7-1.3 [facility] Serum or plasma calcium kaylin urement (mass/volume)Ordered By: Ruma Oreilly on 04-29-2022 Calcium [Mass/Vol] 9.8 mg/dL 8.5-10.1 [facility] Serum or plasma creatinine m easurement (mass/volume)Ordered By: Ruma Oreilly on 04-29-2022 Creatinine [Mass/Vol] 1.80 mg/dL 0.70-1.30 [facility] Comment on above: The validity of the calculated GFR & GFRAA in patients over 70 years has not been determined. Clinical correlation is essential. Serum or plasma ferritin cinthia surement (mass/volume)Ordered By: Ruma Oreilly on 04-29-2022 Ferritin [Mass/Vol] 25 ng/mL 26-388 [facility] Serum or plasma gamma globul in measurement by electrophoresis (mass/volume)Ordered By: Ruma Oreilly on 04-29-2022 Gamma globulin Elph [Mass/Vol] 0.9 g/dL 0.4-1.8 [facility] Serum or plasma gastrin kaylin urement (mass/volume)Ordered By: Ruma Oreilly on 04-29-2022 Gastrin [Mass/Vol] 548 pg/mL 0-115 [facility] Comment on above: Siemens Immulite 200 0 Immunochemiluminometric assay (ICMA)Values obtained with different assay methods or kits cannotbe used interchangeably. Results cannot be interpreted asabsolute evidence of the presence or absence of malignantdisease.Performed at: - [employer] [id number] Director: Mateusz Nolasco PhD, Phone: [phone] at: - [facility] [id number] Director: Tino Blanc MD, Phone: [phone] Serum or plasma immunoelectr ophoresis interpretation (nominal result)Ordered By: Ruma Oreilly on 04-29-2022 Interpretation IEP [Interp] Comment . [facility] Comment on above: No monoclonality det ected. Serum or plasma iron saturat ion measurement (mass fraction)Ordered By: Ruma Oreilly on 04-29-2022 Iron saturation [Mass fraction] 16.6 % 15.0-55.0 [facility] Serum or plasma urea nitroge n measurement (mass/volume)Ordered By: Ruma Oreilly on 04-29-2022 Urea nitrogen [Mass/Vol] 30 mg/dL 7-18 [facility] Serum perinuclear neutrophil cytoplasmic antibody titer by immunofluorescenceOrdered By: Ruma Oreilly on 04-29-2022 Neutrophil cytoplasmic Ab.perinuclear IF (S) [Titer] <1:20 titer Neg:<1:20 [facility] Comment on above: The presence of posi tive fluorescence exhibiting P-ANCA orC-ANCA patterns alone is not specific for the diagnosis ofWegener's Granulomatosis (WG) or microscopic polyangiitis.Decisions about treatment should not be based solely onANCA IFA results. The [employer] ANCA [employer] Consensusrecommends follow up testing of positive sera with both AK-3 and MPO-ANCA enzyme immunoassays. As many as 5% serumsamples are positive only by EIA. Ref. AM J Clin Khffco8448;111:507-513. Serum tissue transglutaminas e IgA antibody assay (units/volume)Ordered By: Ruma Oreilly on 04-29-2022 tTG IgA Qn (S) <2 U/mL 0-3 [facility] Comment on above: Negative 0 - 3 Weak Positive 4 - 10 Positive >10 Tissue Transglutaminase (tTG) has been identified as the endomysial antigen. Studies have demonstr- ated that endomysial IgA antibodies have over 99% specificity for gluten sensitive enteropathy. Thin prep Papanicolaou smear with manual screeningOrdered By: Ruma Oreilly on 04-29-2022 Thin prep Papanicolaou smear with manual screening 22 U/L 15-37 [facility] Thin prep Papanicolaou smear with manual screening 7 5-15 [facility] Thin prep Papanicolaou smear with manual screening 1.2 0.7-1.7 [facility] Total protein bloodOrdered B y: Ruma rOeilly on 04-29-2022 Protein [Mass/Vol] 7.5 g/dL 6.0-8.5 [facility] Basophil percentageOrdered B y: Dr. Patel on 04-28-2022 Creatinine [Mass/Vol] 1.1 mg/dL 0.70-1.30 [facility] No Panel InformationOrdered By: Dr. Patel on 04-28-2022 Bedside Estimated GFR (eGFR) > 60.0000 mL/min >60 [facility] Basophil percentageOrdered B y: Lois Hines on 03-18-2022 Chloride [Moles/Vol] 103 mmol/L 98-107 [facility] Glucose [Mass/Vol] 122 mg/dL 74-106 [facility] Comment on above: Fasting Glucose resu lt from 100 to 125 mg/dL suggests IMPAIRED HOMEOSTASIS per A.D.A. criteria. Potassium [Moles/Vol] 3.9 mmol/L 3.5-5.1 [facility] Sodium [Moles/Vol] 139 mmol/L 136-145 [facility] Laboratory - Chemistry and C hemistry - challengeOrdered By: Lois Hines on 03-18-2022 CO2 [Moles/Vol] 29.0 mmol/L 21.0-32.0 [facility] Urea nitrogen/Creatinine [Mass ratio] 11.2 mg/mg 10-20 [facility] No Panel InformationOrdered By: Lois Hines on 03-18-2022 Estimated GFR (MDRD) Amer 55 mL/min >60 [facility] Comment on above: GFR Calc Estimated GFR (MDRD) Non-Af Amer 45 mL/min >60 [facility] Comment on above: Non- GFR Calc Serum or plasma calcium kaylin urement (mass/volume)Ordered By: Lois Hines on 03-18-2022 Calcium [Mass/Vol] 9.8 mg/dL 8.5-10.1 [facility] Serum or plasma creatinine m easurement (mass/volume)Ordered By: Lois Hines on 03-18-2022 Creatinine [Mass/Vol] 1.60 mg/dL 0.70-1.30 [facility] Comment on above: The validity of the calculated GFR & GFRAA in patients over 70 years has not been determined. Clinical correlation is essential. Serum or plasma urea nitroge n measurement (mass/volume)Ordered By: Lois Hines on 03-18-2022 Urea nitrogen [Mass/Vol] 18 mg/dL 7-18 [facility] Thin prep Papanicolaou smear with manual screeningOrdered By: Lois Hines on 03-18-2022 Thin prep Papanicolaou smear with manual screening 7 5-15 [facility] Absolute lymphocyte countOrd ered By: Lois Hines on 03-11-2022 Lymphocytes Auto (Unsp spec) [#/Vol] 1.44 10*3/uL 0.83-4.51 [facility] Basophil percentageOrdered B y: Lois Hines on 03-11-2022 Basophils/100 WBC (Bld) 0.4 % 0-[address] [facility] Chloride [Moles/Vol] 101 mmol/L 98-107 [facility] Eosinophils/100 WBC (Bld) 1.3 % 0-5 [facility] Glucose [Mass/Vol] 228 mg/dL 74-106 [facility] Comment on above: Glucose result great er than or equal to 200 mg/dLsuggests DIABETES MELLITUS per A.D.A. criteria. Neutrophils (Bld) [#/Vol] 3.2 10*3/uL 2.0-7.7 [facility] Neutrophils/100 WBC (Bld) 61.2 % 47-70 [facility] Potassium [Moles/Vol] 3.7 mmol/L 3.5-5.1 [facility] Sodium [Moles/Vol] 136 mmol/L 136-145 [facility] WBC (Bld) [#/Vol] 5.2 10*3/uL 4.4-11.0 [facility] Blood erythrocytes count (nu mber/volume)Ordered By: Lois Hines on 03-11-2022 RBC (Bld) [#/Vol] 4.17 10*6/uL 4.6-6.2 [facility] Blood hemoglobin measurement (mass/volume)Ordered By: Lois Hines on 03-11-2022 Hemoglobin (Bld) [Mass/Vol] 12.2 g/dL 13.0-16.5 [facility] Blood lymphocytes/100 leukoc ytesOrdered By: Lois Hines on 03-11-2022 Lymphocytes/100 WBC (Bld) 27.7 % 19-41 [facility] Blood monocytes/100 leukocyt esOrdered By: Lois Hines on 03-11-2022 Monocytes/100 WBC (Bld) 9.2 % 0-[address] [facility] Blood platelet mean volumeOr dered By: Lois Hines on 03-11-2022 Platelet mean volume (Bld) [Entitic vol] 10.5 fL 6.2-12.0 [facility] Determination of erythrocyte mean corpuscular volume (MCV)Ordered By: Lois Hines on 03-11-2022 MCV (RBC) [Entitic vol] 87.8 fL 80-[address] [facility] Hematocrit Auto (Bld) [Volum e fraction]Ordered By: Lois Hines on 03-11-2022 Hematocrit (Bld) [Volume fraction] 36.6 % 40-54 [facility] Laboratory - Chemistry and C hemistry - challengeOrdered By: Lois Hines on 03-11-2022 CO2 [Moles/Vol] 28.0 mmol/L 21.0-32.0 [facility] Natriuretic peptide B (Bld) [Mass/Vol] 173.1 pg/mL 0-100 [facility] Urea nitrogen/Creatinine [Mass ratio] 16.8 mg/mg 10-20 [facility] Laboratory - Hematology and Cell countsOrdered By: Lois Hines on 03-11-2022 Erythrocyte distribution width (RBC) [Entitic vol] 45.8 fL 35.1-43.9 [facility] Erythrocyte distribution width (RBC) [Ratio] 14.3 % 11.6-14.6 [facility] Immature granulocytes/100 WBC (Bld) 0.200 % 0.0-0.9 [facility] Comment on above: IG% - Immature Granu locytes (promyelocytes, myelocytes and metamyelocytes) > 1% indicates that a LEFT SHIFT is Present. MCH (RBC) [Entitic mass] 29.3 pg 27.0-32.0 [facility] Nucleated RBC/100 WBC (Bld) [Ratio] 0 % 0-5 [facility] MCHC Auto (RBC) [Mass/Vol]Or dered By: Lois Hines on 03-11-2022 MCHC (RBC) [Mass/Vol] 33.3 g/dL 32-36 [facility] No Panel InformationOrdered By: Lois Hines on 03-11-2022 Estimated GFR (MDRD) Amer 54 mL/min >60 [facility] Comment on above: GFR Calc Estimated GFR (MDRD) Non-Af Amer 45 mL/min >60 [facility] Comment on above: Non- GFR Calc Thyroid Stimulating Hormone (TSH) 0.60 uIU/mL 0.358-3.74 [facility] Platelets bldOrdered By: Se Hines on 03-11-2022 Platelets (Bld) [#/Vol] 278 10*3/uL 150-450 [facility] Serum or plasma calcium kaylin urement (mass/volume)Ordered By: Lois Hines on 03-11-2022 Calcium [Mass/Vol] 9.1 mg/dL 8.5-10.1 [facility] Serum or plasma creatinine m easurement (mass/volume)Ordered By: Lois Hines on 03-11-2022 Creatinine [Mass/Vol] 1.61 mg/dL 0.70-1.30 [facility] Comment on above: The validity of the calculated GFR & GFRAA in patients over 70 years has not been determined. Clinical correlation is essential. Serum or plasma urea nitroge n measurement (mass/volume)Ordered By: Lois Hines on 03-11-2022 Urea nitrogen [Mass/Vol] 27 mg/dL 7-18 [facility] Thin prep Papanicolaou smear with manual screeningOrdered By: Lois Hines on 03-11-2022 Thin prep Papanicolaou smear with manual screening 7 5-15 [facility] Absolute lymphocyte countOrd ered By: Dr. Choudhury on 02-04-2022 Lymphocytes Auto (Unsp spec) [#/Vol] 2.12 10*3/uL 0.83-4.51 [facility] Basophil percentageOrdered B y: Dr. Choudhury on 02-04-2022 Basophil percentage 2.6 mg/dL 2.5-4.9 [facility] Basophils/100 WBC (Bld) 0.3 % 0-[address] [facility] Chloride [Moles/Vol] 104 mmol/L 98-107 [facility] Eosinophils/100 WBC (Bld) 0.9 % 0-5 [facility] Glucose [Mass/Vol] 101 mg/dL 74-106 [facility] Comment on above: Fasting Glucose resu lt from 100 to 125 mg/dL suggests IMPAIRED HOMEOSTASIS per A.D.A. criteria. Neutrophils (Bld) [#/Vol] 4.1 10*3/uL 2.0-7.7 [facility] Neutrophils/100 WBC (Bld) 59.0 % 47-70 [facility] Potassium [Moles/Vol] 3.8 mmol/L 3.5-5.1 [facility] Sodium [Moles/Vol] 139 mmol/L 136-145 [facility] WBC (Bld) [#/Vol] 6.9 10*3/uL 4.4-11.0 [facility] Blood erythrocytes count (nu mber/volume)Ordered By: Dr. Choudhury on 02-04-2022 RBC (Bld) [#/Vol] 4.26 10*6/uL 4.6-6.2 [facility] Blood hemoglobin measurement (mass/volume)Ordered By: Dr. Choudhury on 02-04-2022 Hemoglobin (Bld) [Mass/Vol] 12.0 g/dL 13.0-16.5 [facility] Blood lymphocytes/100 leukoc ytesOrdered By: Dr. Choudhury on 02-04-2022 Lymphocytes/100 WBC (Bld) 30.8 % 19-41 [facility] Blood monocytes/100 leukocyt esOrdered By: Dr. Choudhury on 02-04-2022 Monocytes/100 WBC (Bld) 8.7 % 0-[address] [facility] Blood platelet mean volumeOr dered By: Dr. Choudhury on 02-04-2022 Platelet mean volume (Bld) [Entitic vol] 10.0 fL 6.2-12.0 [facility] Determination of erythrocyte mean corpuscular volume (MCV)Ordered By: Dr. Choudhury on 02-04-2022 MCV (RBC) [Entitic vol] 86.2 fL 80-[address] [facility] Glucose Glucometer (BldC) [M ass/Vol]Ordered By: Dr. Choudhury on 02-04-2022 Glucose [Mass/Vol] 91 mg/dL 74-106 [facility] Comment on above: MANAGEMENT OF PATIEN T CARE PER NURSING PROTOCOL Hematocrit Auto (Bld) [Volum e fraction]Ordered By: Dr. Choudhury on 02-04-2022 Hematocrit (Bld) [Volume fraction] 36.7 % 40-54 [facility] Laboratory - Chemistry and C hemistry - challengeOrdered By: Dr. Choudhury on 02-04-2022 CO2 [Moles/Vol] 29.0 mmol/L 21.0-32.0 [facility] Magnesium [Mass/Vol] 1.9 mg/dL 1.6-2.6 [facility] Urea nitrogen/Creatinine [Mass ratio] 15.9 mg/mg 10-20 [facility] Laboratory - Hematology and Cell countsOrdered By: Dr. Choudhury on 02-04-2022 Erythrocyte distribution width (RBC) [Entitic vol] 44.8 fL 35.1-43.9 [facility] Erythrocyte distribution width (RBC) [Ratio] 14.4 % 11.6-14.6 [facility] Immature granulocytes/100 WBC (Bld) 0.300 % 0.0-0.9 [facility] Comment on above: IG% - Immature Granu locytes (promyelocytes, myelocytes and metamyelocytes) > 1% indicates that a LEFT SHIFT is Present. MCH (RBC) [Entitic mass] 28.2 pg 27.0-32.0 [facility] Nucleated RBC/100 WBC (Bld) [Ratio] 0 % 0-5 [facility] MCHC Auto (RBC) [Mass/Vol]Or dered By: Dr. Choudhury on 02-04-2022 MCHC (RBC) [Mass/Vol] 32.7 g/dL 32-36 [facility] No Panel InformationOrdered By: Dr. Choudhury on 02-04-2022 Estimated Creatinine Clearance Calc 42.78 ml/min [facility] Estimated GFR (MDRD) Amer 59 mL/min >60 [facility] Comment on above: GFR Calc Estimated GFR (MDRD) Non-Af Amer 48 mL/min >60 [facility] Comment on above: Non- GFR Calc No Panel InformationOrdered By: Dr. Lan on 02-04-2022 Troponin I High Sensitivity 912 pg/mL 3.0-78.0 [facility] Comment on above: Critical Result(s) C alled at: 07:23:40 02/04/2022 by: Saúl Norton RN (U). Results read back by same. Please Note: New Test Units and Gender Specific Reference Ranges. For more information see Policy Stat Procedure [place] High Sensitivity Troponin (TNIH) and attachments. Platelets bldOrdered By: Dr. Choudhury on 02-04-2022 Platelets (Bld) [#/Vol] 221 10*3/uL 150-450 [facility] Serum or plasma calcium kaylin urement (mass/volume)Ordered By: Dr. Choudhury on 02-04-2022 Calcium [Mass/Vol] 9.8 mg/dL 8.5-10.1 [facility] Serum or plasma creatinine m easurement (mass/volume)Ordered By: Dr. Choudhury on 02-04-2022 Creatinine [Mass/Vol] 1.51 mg/dL 0.70-1.30 [facility] Comment on above: The validity of the calculated GFR & GFRAA in patients over 70 years has not been determined. Clinical correlation is essential. Serum or plasma urea nitroge n measurement (mass/volume)Ordered By: Dr. Choudhury on 02-04-2022 Urea nitrogen [Mass/Vol] 24 mg/dL - [facility] Thin prep Papanicolaou smear with manual screeningOrdered By: Dr. Choudhury on 02-04-2022 Thin prep Papanicolaou smear with manual screening 6 5-15 [facility] Influenza virus A and B and SARS-CoV-2 (COVID-19) Ag panel - Upper respiratory specimOrdered By: Dr. Stover on 02-03-2022 SARS-CoV-2 (COVID-19) RNA DAMON+probe Ql (Resp) [facility] No Panel InformationOrdered By: Dr. Garcia on 02-03-2022 Thyroid Stimulating Hormone (TSH) 0.22 uIU/mL 0.358-3.74 [facility] Absolute lymphocyte counton 02-02-2022 Lymphocytes Auto (Unsp spec) [#/Vol] 6.76 10*3/uL 0.83-4.51 [facility] Work Phone: Assessment of wrist artery p atency prior to arterial punctureOrdered By: Dr. Stover on 02-02-2022 Arterial patency Wrist artery --pre arterial puncture Positive [facility] Base excessOrdered By: Dr. Leroy deng on 02-02-2022 Base excess Calc (BldV) [Moles/Vol] -8 mmol/L -2-2 [facility] Basophil percentageOrdered B y: Dr. Stover on 02-02-2022 Basophil percentage 19.0 mmol/L 22-26 [facility] Basophils/100 WBC (Bld) 97 % 95-[address] [facility] Basophil percentageon 2021 Basophils/100 WBC (Bld) 0.5 % 0-[address] [facility] Work Phone: [phone] Chloride [Moles/Vol] 106 mmol/L 98-107 [facility] Work Phone: Eosinophils/100 WBC (Bld) 0.8 % 0-5 [facility] Work Phone: [phone] Glucose [Mass/Vol] 205 mg/dL 74-106 [facility] Work Phone: [phone] Comment on above: Glucose result great er than or equal to 200 mg/dLsuggests DIABETES MELLITUS per A.D.A. criteria. Neutrophils (Bld) [#/Vol] 5.1 10*3/uL 2.0-7.7 [facility] Work Phone: [phone] Neutrophils/100 WBC (Bld) 38.4 % 47-70 [facility] Work Phone: [phone] Potassium [Moles/Vol] 4.2 mmol/L 3.5-5.1 [facility] Work Phone: [phone] Comment on above: Moderate Hemolysis, Result may be falsely increased. Sodium [Moles/Vol] 139 mmol/L 136-145 [facility] Work Phone: [phone] WBC (Bld) [#/Vol] 13.3 10*3/uL 4.4-11.0 [facility] Work Phone: [phone] Blood erythrocytes count (nu mber/volume)on 02-02-2022 RBC (Bld) [#/Vol] 5.46 10*6/uL 4.6-6.2 [facility] Work Phone: Blood hemoglobin measurement (mass/volume)on 02-02-2022 Hemoglobin (Bld) [Mass/Vol] 15.5 g/dL 13.0-16.5 [facility] Work Phone: Blood lymphocytes/100 leukoc yteson 02-02-2022 Lymphocytes/100 WBC (Bld) 50.9 % 19-41 [facility] Work Phone: Blood manual differential co mment interpretation (narrative result)Ordered By: Dr. Stover on 02-02-2022 Manual differential comment [place] (Bld) [Interp] SCANNED [facility] Blood monocytes/100 leukocyt eson 02-02-2022 Monocytes/100 WBC (Bld) 8.7 % 0-[address] [facility] Work Phone: [phone] Blood platelet mean volumeon 02-02-2022 Platelet mean volume (Bld) [Entitic vol] 12.0 fL 6.2-12.0 [facility] Work Phone: CO2 (BldA) [Partial pressure ]Ordered By: Dr. Stover on 02-02-2022 CO2 (Bld) [Partial pressure] 44.2 mm[Hg] 35-45 [facility] Determination of erythrocyte mean corpuscular volume (MCV)on 02-02-2022 MCV (RBC) [Entitic vol] 88.3 fL 80-[address] [facility] Work Phone: Hematocrit Auto (Bld) [Volum e fraction]on 02-02-2022 Hematocrit (Bld) [Volume fraction] 48.2 % 40-54 [facility] Work Phone: Laboratory - Chemistry and C hemistry - challengeon 02-02-2022 CO2 [Moles/Vol] 22.0 mmol/L 21.0-32.0 [facility] Work Phone: Urea nitrogen/Creatinine [Mass ratio] 12.2 mg/mg 10-20 [facility] Work Phone: Laboratory - Chemistry and C hemistry - challengeOrdered By: Dr. Stover on 02-02-2022 Natriuretic peptide B (Bld) [Mass/Vol] 299.8 pg/mL 0-100 [facility] Laboratory - Hematology and Cell countson 02-02-2022 Erythrocyte distribution width (RBC) [Entitic vol] 45.8 fL 35.1-43.9 [facility] Work Phone: Erythrocyte distribution width (RBC) [Ratio] 14.3 % 11.6-14.6 [facility] Work Phone: Immature granulocytes/100 WBC (Bld) 0.700 % 0.0-0.9 [facility] Work Phone: Comment on above: IG% - Immature Granu locytes (promyelocytes, myelocytes and metamyelocytes) > 1% indicates that a LEFT SHIFT is Present. MCH (RBC) [Entitic mass] 28.4 pg 27.0-32.0 [facility] Work Phone: Nucleated RBC/100 WBC (Bld) [Ratio] 0 % 0-5 [facility] Work Phone: MCHC Auto (RBC) [Mass/Vol]on 02-02-2022 MCHC (RBC) [Mass/Vol] 32.2 g/dL 32-36 [facility] Work Phone: No Panel InformationOrdered By: Dr. Stover on 02-02-2022 Blood Gas Clinical Comments 01/02 12 100% [facility] Blood Gas Oxygen Percent 100 [facility] Blood Gas Sample Site R Radial [facility] Blood Gas Specimen Type ART W [facility] Blood Gas Total CO2 20 mmol/L [facility] Oxygen Delivery Device BiPAP [facility] No Panel Informationon 02-02 Estimated Creatinine Clearance Calc 35.69 ml/min [facility] Work Phone: Estimated GFR (MDRD) Amer 48 mL/min >60 [facility] Work Phone: Comment on above: GFR Calc Estimated GFR (MDRD) Non-Af Amer 39 mL/min >60 [facility] Work Phone: Comment on above: Non- GFR Calc Troponin I High Sensitivity 24 pg/mL 3.0-78.0 [facility] Work Phone: Comment on above: Please Note: New Kiley t Units and Gender Specific Reference Ranges. For more information see Policy Stat Procedure [place] High Sensitivity Troponin (TNIH) and attachments. Oxygen (BldA) [Partial press ure]Ordered By: Dr. Stover on 02-02-2022 Oxygen (Bld) [Partial pressure] 110 mmHG 75-100 [facility] Platelets bldon 02-02-2022 Platelets (Bld) [#/Vol] 113 10*3/uL 150-450 [facility] Work Phone: Serum or plasma calcium kaylin urement (mass/volume)on 02-02-2022 Calcium [Mass/Vol] 10.5 mg/dL 8.5-10.1 [facility] Work Phone: Serum or plasma creatinine m easurement (mass/volume)on 02-02-2022 Creatinine [Mass/Vol] 1.81 mg/dL 0.70-1.30 [facility] Work Phone: Comment on above: The validity of the calculated GFR & GFRAA in patients over 70 years has not been determined. Clinical correlation is essential. Serum or plasma urea nitroge n measurement (mass/volume)on 02-02-2022 Urea nitrogen [Mass/Vol] 22 mg/dL 7-18 [facility] Work Phone: Thin prep Papanicolaou smear with manual screeningon 02-02-2022 Thin prep Papanicolaou smear with manual screening 11 5-15 [facility] Work Phone: pH measurementOrdered By: Dr Yann Stover on 02-02-2022 pH (Unsp spec) 7.24 [pH] 7.35-7.45 [facility] Basophil percentageon 2021 Chloride [Moles/Vol] 104 mmol/L 98-107 [facility] Work Phone: Glucose [Mass/Vol] 101 mg/dL 74-106 [facility] Work Phone: Comment on above: Fasting Glucose resu lt from 100 to 125 mg/dL suggests IMPAIRED HOMEOSTASIS per A.D.A. criteria. Potassium [Moles/Vol] 4.4 mmol/L 3.5-5.1 [facility] Work Phone: Sodium [Moles/Vol] 138 mmol/L 136-145 [facility] Work Phone: Laboratory - Chemistry and C hemistry - challengeon 09-30-2021 CO2 [Moles/Vol] 29.0 mmol/L 21.0-32.0 [facility] Work Phone: Natriuretic peptide B (Bld) [Mass/Vol] 250.7 pg/mL 0-100 [facility] Work Phone: Urea nitrogen/Creatinine [Mass ratio] 13.5 mg/mg 10-20 [facility] Work Phone: No Panel Informationon 09-30 Estimated GFR (MDRD) Amer 57 mL/min >60 [facility] Work Phone: Comment on above: GFR Calc Estimated GFR (MDRD) Non-Af Amer 47 mL/min >60 [facility] Work Phone: Comment on above: Non- GFR Calc Serum or plasma calcium kaylin urement (mass/volume)on 09-30-2021 Calcium [Mass/Vol] 10.0 mg/dL 8.5-10.1 [facility] Work Phone: Serum or plasma creatinine m easurement (mass/volume)on 09-30-2021 Creatinine [Mass/Vol] 1.56 mg/dL 0.70-1.30 [facility] Work Phone: Comment on above: The validity of the calculated GFR & GFRAA in patients over 70 years has not been determined. Clinical correlation is essential. Serum or plasma urea nitroge n measurement (mass/volume)on 09-30-2021 Urea nitrogen [Mass/Vol] 21 mg/dL 7-18 [facility] Work Phone: Thin prep Papanicolaou smear with manual screeningon 09-30-2021 Thin prep Papanicolaou smear with manual screening 5 5-15 [facility] Work Phone: XR ABDOMEN 1V SUPINEon 08-26 [facility] ALLIED HEALTHon 08-15-2021 ALLIED HEALTH HNO ID: [id number] Author: RT Fely(R) Service: Radiology Author Type: Technologist Type: Allied Health Filed: 08/15/2021 7:13 AM Note Text: Radiology Service Progress Note PATIENT NAME: Salome Sheth DATE OF SERVICE: August 15, 2021 TIME: 7:13 AM PATIENT IDENTITY VERIFICATION COMPLETED USING TWO (2) IDENTIFIERS: Name and Date of confirmed by patient verbally and Name and Date of confirmed by identification band. FALL SCREENING: Has the patient had 2 falls in the last year or 1 fall with injury or currently using an Ambulatory Assistive Device (Walker, Cane, Wheelchair, Crutches, etc.)? No PATIENT GENDER DATA: Male PATIENT RELEVANT IMPLANT DATA REVIEWED: Not Applicable RADIOLOGY DEPARTMENT: CT; Exam(s) Completed: Chest PERIPHERAL IV DATA: Not applicable SIGNED BY: RT Fely(R) August 15, 2021 7:13 AM [facility] CT CHEST WO IVCONon 08-16-19 CT CHEST WO IVCON * * *Final Report* * * DATE OF EXAM: Aug 15 2021 7:21AM [facility] 0541 - CT CHEST WO IVCON / PROCEDURE REASON: R91.8-Lung nodules * * * * Physician Interpretation * * * * EXAMINATION: CHEST CT WITHOUT CONTRAST CLINICAL HISTORY: Lung nodules 6 mm nodule right lower lobe. Ex-smoker. 6 month follow up. Technique: Spiral CT acquisition of the chest from the thoracic inlet to the upper abdomen without contrast. MQ: [id number] CT Radiation dose: Integrated Dose-length product (DLP) for this visit = 400 mGy*cm CT Dose Reduction Employed: mAs-kVp adjusted based on patient size-age Comparison: Type of study and date/time RESULT: Limitations: None. Lines, tubes, and devices: None. Lung parenchyma and airways: No consolidation or pneumothorax. ?The central airways are patent. ?Stable 5-6 mm RIGHT middle lobe pulmonary nodule axial image 112 and sagittal image 33. ?Scarring/atelectasis in the lingula and lower RIGHT middle lobe. Pleural space: No pleural effusion. No pleural thickening. Lower neck, lymph nodes, and mediastinum: The imaged thyroid gland is normal. No lymphadenopathy in the supraclavicular, axillary, mediastinal, or hilar regions. Heart, pericardium, and thoracic vessels: The ascending aorta again noted to measure approximately 4.4 to 4.5 cm. Extensive calcification in the coronary arteries Bones and soft tissues: No destructive bone lesion. Chest wall is unremarkable. Upper abdomen: No abnormality in the imaged upper abdomen. Services Tech (topogram) images: No additional findings. IMPRESSION: 1. Stable 5-6 mm RIGHT middle lobe nodule 2. 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 Author Type: Anesthesiologist Type: Anesthesia Postprocedure Evaluation Filed: 07/14/2021 8:48 AM Note Text: POST ANESTHESIA EVALUATION NOTE : 1950 Procedure Summary Date: 07/14/21 Room / Location: [facility] Endoscopy Anesthesia Start: 28 Anesthesia Stop: 08 Procedures: COLONOSCOPY DIAGNOSTIC EGD DIAGNOSTIC Diagnosis: Pain of upper abdomen Heartburn Early satiety Change in stool (Suspected gastro-esophageal reflux disease) (Constipation) Scheduled Providers: Eze Grijalva MD; Randee Ramos MD; ROBERT Warner Responsible Provider: Randee Ramos MD Anesthesia Type: MAC ASA Status: 3 Anesthesia Type: MAC Last Vitals Vitals Value Taken Time BP 123/56 07/14/21 0840 Temp 36.5 ?C (97.7 ?F) 07/14/21 0840 HR SpO2 60 07/14/21 0840 Resp 20 07/14/21 0840 SpO2 96 % 07/14/21 0840 Post Anesthesia Patient Status Patient Evaluation: PACU. Neurological Status: aware and responsive. Pulmonary Status: breathing comfortably on room air Airway Control: returned to baseline unsupported. Cardiovascular Status: stable. Pain Management: clinically adequate Postoperative Hydration: acceptable. Intraoperative Events: no significant anesthesia events Post Operative Nausea/Vomiting Status: no significant post operative nausea or vomiting Anesthetic Observations: Recommendation: continue current plan of care. Anesthesia Observations No Documentation SIGNATURE: Randee Ramos MD PATIENT NAME: Salome Sheth DATE: July 14, 2021 TIME: 8:48 AM CSN: [id number] Normal [facility] ANES PRE-OPon 07-14-2021 ANES PRE-OP HNO ID: [id number] Author: Randee Ramos MD Service: ? Author Type: Anesthesiologist Type: Anesthesia Preprocedure Evaluation Filed: 07/14/2021 8:01 AM Note Text: ANESTHESIOLOGY DAY OF SURGERY NOTE : 1950 Procedure Information Date/Time: 07/14/21 0800 Scheduled providers: Eze Grijalva MD; Randee Ramos MD; ROBERT Warner Procedures: COLONOSCOPY DIAGNOSTIC EGD DIAGNOSTIC Location: [facility] Endoscopy Estimated body mass index is 32.39 kg/m? as calculated from the following: Height as of this encounter: 172.7 cm (5' 8). Weight as of this encounter: 96.6 kg (213 lb). Most recent hematocrit and potassium results: Hematocrit 42.3 04/21/2021 Potassium 3.9 04/21/2021 Relevant Problems ANESTHESIA (+) PRAKASH (obstructive sleep apnea) CARDIO (+) AAA (abdominal aortic aneurysm) (HCC) (+) Coronary artery disease (+) Essential hypertension (+) Myocardial infarction (HCC) (+) Paroxysmal A-fib (HCC) (+) S/P CABG (coronary artery bypass graft) ENDO (+) Diabetes mellitus, type II (HCC) (+) Hypothyroidism PULMONARY (+) PRAKASH (obstructive sleep apnea) Other (+) Rheumatoid arthritis (HCC) I - PHYSICAL EVALUATION AIRWAY Patient intubated: No. Tracheostomy tube not present Mallampati: II. TM distance: >3 FB. Neck ROM: full ROM without neurological symptoms. Mouth opening: adequate. Short neck: no. Thick neck: no DENTAL Dental findings: chipped and missing tooth/teeth. Additional exam findings: yes. CARDIOVASCULAR Rhythm: regular Rate: normal PULMONARY Breath sounds clear to auscultation. ABDOMINAL Obese: obesity present. Other findings: Midline sternal scar . II - ANESTHESIA PLAN ASA Score: 3 Anesthetic Plan: MAC The patient is not a current smoker. NPO Status: adequate Monitoring plan: standard ASA. Postoperative analgesic plan: multimodal analgesia. Informed Consent Anesthetic risks, benefits, alternatives, personnel and consent discussed: yes. Patient / Responsible Green Party agrees to proceed: yes Patient / Surrogate agrees to blood products: Yes Potential Anesthesia issues that may suggest increased risk of complications or contraindication to planned procedure: none. Vitals Value Taken Time BP 197/93 07/14/21651 Pulse 77 07/14/21651 Resp 16 07/14/21651 Temp 36.3 ?C (97.3 ?F) 07/14/21651 SpO2 98 % 07/14/21651 Outpatient Medications as of 07/14/2021 Medication Sig - metFORMIN (GLUCOPHAGE) 1,000 mg tablet Take 1 tablet by mouth daily with dinner. - amiodarone (PACERONE) 200 mg tablet Taking 0.5 tab at bedtime - thyroid,pork (ARMOUR THYROID ORAL) Take 60-65 mg by mouth once daily. Takes two tablets in the morning - metoprolol tartrate, short acting, (LOPRESSOR) 25 mg tablet Take 1 tablet by mouth twice daily. - losartan (COZAAR) 100 mg tablet TAKE 1 AND 1/2 TABLETS ONCEDAILY - gabapentin (NEURONTIN) 300 mg capsule Take 1 capsule by mouth twice daily for 180 days. (Patient taking differently: Take 300 mg by mouth daily at bedtime. Takes two capsules at bedtime) - glipiZIDE (GLUCOTROL XL) 10mg 24 hr tablet Take 1 tablet by mouth once daily. - furosemide (LASIX) 40 mg tablet Take 0.5 tablets by mouth once daily. - isosorbide mononitrate ER (IMDUR) 30 mg 24 hr tablet Take 1 tablet by mouth once daily. - amLODIPine (NORVASC) 5 mg tablet Take 1 tablet by mouth once daily. - acetaminophen (TYLENOL) 325 mg tablet 650 mg every 4 hours as needed. - pantoprazole DR (PROTONIX) 40 mg tablet Take 1 tablet by mouth daily before breakfast. Take on empty stomach, 1/2 hr before meal. - CPAP Initiate CPAP @ 12 cm of water with humidification. Mask (per patient preference) optional chin strap (if indicated) , filters, tubing, humidifier and lifetime supplies. - amiodarone (PACERONE) 200 mg tablet Taking 0.5 tab at bedtime - polyethylene glycol 3350 (MIRALAX) 17 gram/dose powder Take 289 g by mouth once daily. Dissolve dose in 4 - 8 ounces of liquid and take as directed. - aspirin, enteric coated (ASPIRIN, ENTERIC COATED) 81 mg EC tablet Take 81 mg by mouth once daily. - cholecalciferol (VITAMIN D-3) 5,000 unit tab Take 5,000 Units by mouth once daily. - cyanocobalamin, vitamin B-12, (VITAMIN B-12 ORAL) Take by mouth once daily. 2000 mg Facility-Administered Medications as of 07/14/2021 Medication Dose Route Frequency - sodium chloride 0.9 % (flush) 2-10 mL (BD POSIFLUSH) 2-10 mL INTRAVENOUS q 12 H - lactated ringers iv infusion 30 mL/hr INTRAVENOUS CONTINUOUS I have interviewed and examined the patient. I have reviewed the medical record and/or the pre-anesthesia evaluation, pertinent labs, and test results. This contains updated information obtained within 48 hours of Surgery/Procedure. SIGNATURE: Randee Ramos MD PATIENT NAME: Salome Sheth DATE: July 14, 2021 TIME: 7:04 AM CSN: [id number] Normal [facility] COLONOSCOPY DIAGNOSTICon [facility] EGD DIAGNOSTICon 07-14-2021 [facility] GLUCOSE, BLOOD (POC)on 07-14 Glucose [Mass/Vol] 118 mg/dL Abnormal 74 - 99 mg/dL [facility] Glucose [Mass/Vol] 98 mg/dL 74 - 99 mg/dL [facility] HISTORY PHYSICALon HISTORY PHYSICAL HNO ID: [id number] Author: Eze Grijalva MD Service: General Surgery Author Type: Physician Type: HANDP Filed: 07/14/2021 7:05 AM Note Text: REASON FOR VISIT Salome Sheth is a 70 year old male who is scheduled at the request of Allan Rosario for No chief complaint on file.. My final recommendations will be communicated back to the requesting physician by the way of the shared medical record, fax, or via US Mail ? The patient was seen by on 01/10/2021 on, leading to this consultation. That note has been reviewed and part as follows: ? HPI Salome Sheth is a 70 year old male who presents here today for?a 2 mo f/u.?Pt here today with his . ? Pt following up from recent TCM back in October and most recent visit with Marina Hudson CNP on 12/18/20 for blood in stool. Pt recently at [facility] on 01/06/21 for abdominal pain was d/c home same day to f/u with PCP.??Pt does taking Protonix 40 mg daily. Pt feels a lot of issues stem from him not being able to have BM's at times. ER Provider feels the bowel going under his hernia is causing him symptoms.? ? Stool - Pt's stool card when completed was negative for blood. Pt was advised by Marina Hudson CNP to discuss with his Underwriter about his Eliquis medication. Previously was noted that Dr. Lan wanted him to stop the medication. Pt?is taking Aspirin 81 mg daily, Eliquis still on hold. Cardiology wanted pt to discuss with this office. Pt denies any other bloody stools. ? Cardiac/HTN - Pt was admitted into [facility] for non-ST elevation, A-fib, Flash pulmonary edema, CAD, S/P PTCA, S/P CABG, Hypertension emergency and Hyperlipidemia in early October of this year. Pt f/u up in office for a TCM on 10/25/20. Pt f/u with [facility] on 11/26/20. Pt currently taking Amiodarone 200 mg?0.5?tab po daily at bedtime,?Imdur 30 mg once daily, Lopressor 25 mg 1 tab po bid, Losartan 100 mg 1.5 tab po once daily,?Lasix 40 mg?0.5 tab?daily, Amlodipine 5 mg once daily, Eliquis 2.5 mg 1 tab po bid. ? DM - Checks sugars daily at home with FBS ranging from?66-153 (average 80-110)?. Reports feeling bad when sugars are in the 70's, couple 60's on his records.?Does get shaky when this occurs.?Report neuropathy in b/l hands and feet. On current regimen of Glipizide 10 mg 2 tabs daily. Metformin was held at the hospital when admitted in October, but he is currently taking Metformin 1,000 mg 1.5 tabs po daily? RLS/Neuropathy - On current regimen of Gabapentin 300 mg 1 tab po bid.?Overall this keeps symptoms stable.?? Thyroid - Taking Thyroid, Pork 120 mg daily.? PRAKASH - On CPAP at 12 cm of water.?Does well with sleep machine, but feels he may need more air. Doesn't want another sleep study. ? HM - Declines wanting Covid Vaccine. Declines Flu shot.? Past medical history, appointments, medications, allergies reviewed. ? ? HISTORY OF PRESENT ILLNESS Salome Sheth is a 70 year old male AAA, CAD, CA x3, pulmonary nodules, PRAKASH on CPAP, obesity, insomina, hypothyroidism, HTN, Hard of Hearing, fibromyalgia, diabetic retinopathy, DM, BPH, Bladder cancer, anxiety. who presents today for an evaluation of anemia and blood in stool. ? Reports a change started in September when he had a episode when he was trying to go to the bathroom broke out in a cold sweat, dry heaving and the next thing he remembers he woke up at the hospital with oxygen. Patient reports when he has to go to the bathroom he really has to push and but when he is able to have a bowel movement he reports having diarrhea. Patient reports he does have abdominal pain when he having a bowel movement 'Sucker punch - denies black stool or blood in stool - ? Since then he is eating 5 prunes - benefiber 2 TBP in coffee - 4oz prune juice - If he does not do this he will not have BM - Having 1 BM daily. ? ? Patient reports it's been over 10 years since last colonoscopy they could not complete d/t heart rate dropping and aborted procedure. This was done at [facility]. Since then he does cologuard which are all negative. ? ? Reports he used to live on tomatoes - now he can't even touch it. Taking pantoprazole. pots diet he is eating 1/3 of the food. Patient reports feeling full fast and small bowel of anything will fill him up. He is over eats he will develop pain Recently had chili and this made him sick ? ? ? PRIOR TEST RESULTS Imaging/Procedures: 01/06/21 CT ABD/PEL IMPRESSION: 1. No acute findings. 2. Diverticulosis, no acute diverticulitis. 3. Prostatic enlargement. ? Component Latest Ref Rng AND Units 12/18/2020 12/19/2020 WBC 3.70 - 11.00 k/uL 5.05 ? RBC 4.20 - 6.00 m/uL 4.26 ? Hemoglobin 13.0 - 17.0 g/dL 11.9 (L) ? Hematocrit 39.0 - 51.0 % 36.8 (L) ? MCV 80.0 - 100.0 fL 86.4 ? MCH 26.0 - 34.0 pG 27.9 ? MCHC 30.5 - 36.0 g/dL 32.3 ? RDW-CV 11.5 - 15.0 % 15.4 (H) ? Platelet Count 150 - 400 k/uL 224 ? MPV 9.0 - 12.7 fL 10.7 ? Neut% % 57.4 (more content not included)... Normal [facility] SURGICAL PATHOLOGYon 022 CASE REPORT Normal [facility] Comment on above: Order Comment: Speci trinh Type: TISSUE SPECIMEN Ordering Facility: [facility] Address: [address] [place] [address] Result Comment: Surg [facility] Pathology Report Case: [id number] Authorizing Provider: Eze Grijalva MD Collected: 07/14/2021 07:44 AM Ordering Location: [facility] Endoscopy Received: 07/14/2021 11:43 AM Pathologist: Lorenzo Jensen MD Specimens: A) - ANTRUM (STOMACH) BIOPSY B) - ESOPHAGUS LOWER BIOPSY Performed By: #### S #### [facility] CLIA [id number] [address] [place] [address] DIAGNOSIS COMMENT Normal [facility] Comment on above: Order Comment: Speci trinh Type: TISSUE SPECIMEN Ordering Facility: [facility] Address: [address] [place] [address] Result Comment: A. N o Helicobacter pylori organisms are identified. B. The pancreatic acinar metaplasia is of no clinical significance. Performed By: #### S #### [facility] CLIA [id number] [address] [place] [address] FINAL DIAGNOSIS Normal [facility] Comment on above: Order Comment: Nader tsang Type: TISSUE SPECIMEN Ordering Facility: [facility] Address: [address] [place] [address] Result Comment: A. S tomach, antrum, biopsy: - Gastric antral-type mucosa with mild reactive gastropathy. B. Distal esophagus, biopsy: - Squamous mucosa with focal reactive epithelial changes suggestive of gastroesophageal reflux. - Gastric cardia-type mucosa with mild chronic inflammation and pancreatic acinar metaplasia, negative for intestinal metaplasia or dysplasia (see comment). JEL 07/15/2021 Performed By: #### S #### [facility] CLIA [id number] [address] [place] [address] [place] FINAL PERFORMING LAB Normal [facility] Comment on above: Order Comment: Speci men Type: TISSUE SPECIMEN Ordering Facility: [facility] Address: [address] [place] [address] Result Comment: Diag nostic interpretation performed at [facility], [address] [place] [address] CLIA# [id number] Environmental Economist: Allan Mccauley M.D. Performed By: #### S #### [facility] CLIA [id number] [address] [place] [address] GROSS DESCRIPTION Normal [facility] Comment on above: Order Comment: Speci men Type: TISSUE SPECIMEN Ordering Facility: [facility] Address: [address] [place] [address] Result Comment: A. A NTRUM (STOMACH) BIOPSY. Received in formalin is one piece of castillo, soft tissue measuring 0.3 x 0.3 x 0.2 cm. Totally submitted in one cassette. B. ESOPHAGUS LOWER BIOPSY. Received in formalin is one piece of castillo, soft tissue measuring 0.5 x 0.2 x 0.1 cm. Totally submitted in one cassette. CL July 14, 2021 4:25 PM Gross examination performed at [facility], [address] [place] [address] Performed By: #### S #### [facility] CLIA [id number] [address] [place] [address] [place] Cytology report of Body flui d Cyto stainon 07-10-2021 Cytology report Cyto stain Doc (Body fld) SEE PATHOLOGY REPORT [facility] Work Phone: Comment on above: Specimen submitted t o Anatomical Pathology Department for testing. XR Chest PA and Lateralon IMPRESSION: Scarring or infiltrate in the left lower lobe. Borderline enlargement of the heart. Water Fabricator Operator: KRYSTIN Transcribe Date/Time: Aug 22 2020 10:44A Dictated by : JOHAN SHELTON MD This examination was interpreted and the report reviewed and electronically signed by: JOHAN SHELTON MD on Aug 22 2020 10:51AM [facility] DIVISION OF RADIOLOGY * * *Final Report* * * DATE OF EXAM: Aug 22 2020 10:12AM WOX [id number] - XR CHEST 2V FRONTAL/LAT / PROCEDURE REASON: Rib pain on left side * * * * Physician Interpretation * * * * EXAMINATION: CHEST RADIOGRAPH (2 VIEW FRONTAL & LATERAL) CLINICAL HISTORY: Rib pain on left side MQ: XC2_6 EXAM DATE/TIME: 08/22/2020 10:12 AM COMPARISON: No relevant prior studies available. RESULT: Lines, tubes, and devices: Sternotomy wires overlie the chest from prior cardiothoracic surgery. Lungs and pleura: Scarring or infiltrate within the left lower lobe. No effusion or pneumothorax identified. Cardiomediastinal silhouette: Cardiac silhouette which is top limits of normal. Mediastinal silhouette is within normal limits. Atherosclerotic calcifications involving the aortic arch. Tortuosity of the thoracic aorta. Bones and soft tissues: Unremarkable. DIVISION OF RADIOLOGY Provider, [facility] - 08/22/2020 * * *Final Report* * * DATE OF EXAM: Aug 22 2020 10:12AM WOX [id number] - XR CHEST 2V FRONTAL/LAT / PROCEDURE REASON: Rib pain on left side * * * * Physician Interpretation * * * * EXAMINATION: CHEST RADIOGRAPH (2 VIEW FRONTAL & LATERAL) CLINICAL HISTORY: Rib pain on left side MQ: XC2_6 EXAM DATE/TIME: 08/22/2020 10:12 AM COMPARISON: No relevant prior studies available. RESULT: Lines, tubes, and devices: Sternotomy wires overlie the chest from prior cardiothoracic surgery. Lungs and pleura: Scarring or infiltrate within the left lower lobe. No effusion or pneumothorax identified. Cardiomediastinal silhouette: Cardiac silhouette which is top limits of normal. Mediastinal silhouette is within normal limits. Atherosclerotic calcifications involving the aortic arch. Tortuosity of the thoracic aorta. Bones and soft tissues: Unremarkable. IMPRESSION IMPRESSION: Scarring or infiltrate in the left lower lobe. Borderline enlargement of the heart. Water Fabricator Operator: PSCB Transcribe Date/Time: Aug 22 2020 10:44A Dictated by : JOHAN SHELTON MD This examination was interpreted and the report reviewed and electronically signed by: JOHAN SHELTON MD on Aug 22 2020 10:51AM EST [facility] Radiology Study observation (narrative) [facility] XR Chest PA and LateralOrder ed By: [facility] Provider on 08-22-2020 [facility] PSA, Diagnosticon 07-04-2019 PSA, Diagnostic 0.75 ng/mL Normal 0.00-2.59 [facility] Reference Lab Comment on above: Performed By: #### P SA #### [facility] Routine Lab [address] [address] Influenza virus A and B and SARS-CoV-2 (COVID-19) Ag panel - Upper respiratory specim SARS-CoV-2 (COVID-19) RNA DAMON+probe Ql (Resp) [facility] Work Phone: No Panel Information SARS-CoV-2 & FLU Antigen (Rapid) [facility] Work Phone: Vital Signs Date Time Vital Sign Value Performing Clinician Facility 12-14-2024 07:16-0400 Body height 175.[address] Allan Rosario MD Work Phone: [facility] 12-14-2024 07:16-0400 Body mass index (BMI) [Ratio] 33.3 kg/m2 Dr. Allan Rosario MD Work Phone: [facility] 12-14-2024 07:16-0400 Body weight 102.[address] Allan Rosario MD Work Phone: [facility] 12-14-2024 07:16-0400 Diastolic blood pressure 82 mm[Hg] Dr. Allan Rosario MD Work Phone: [facility] 12-14-2024 07:16-0400 Heart rate 57 /min Dr. Allan Rosario MD Work Phone: [facility] 12-14-2024 07:16-0400 Respiratory rate 18 /min Dr. Allan Rosario MD Work Phone: [facility] 12-14-2024 07:16-0400 SaO2% (BldA) [Mass fraction] 97 % Dr. Allan Rosario MD Work Phone: [facility] 12-14-2024 07:16-0400 Systolic blood pressure 151 mm[Hg] Dr. Allan Rosario MD Work Phone: [facility] 09-12-2024 10:54-0400 Body mass index (BMI) [Ratio] 35.43 kg/m2 Krislyn Aberegg PA Work Phone: [facility] 09-12-2024 10:54-0400 Body temperature 98.71 [degF] Krislyn Aberegg PA Work Phone: [facility] 09-12-2024 10:54-0400 Body weight 105.7 kg Krislyn Aberegg PA Work Phone: [facility] 09-12-2024 10:54-0400 Diastolic blood pressure 64 mm[Hg] Krislyn Aberegg PA Work Phone: [facility] 09-12-2024 10:54-0400 Heart rate 88 /min Krislyn Aberegg PA Work Phone: [facility] 09-12-2024 10:54-0400 Respiratory rate 16 /min Krislyn Aberegg PA Work Phone: [facility] 09-12-2024 10:54-0400 SaO2% (BldA) [Mass fraction] 96 % Krislyn Aberegg PA Work Phone: [facility] 09-12-2024 10:54-0400 Systolic blood pressure 128 mm[Hg] Stephonanitajaylin WATTERS Work Phone: [facility] 08-29-2024 08:11-0400 Body mass index (BMI) [Ratio] 35.7 kg/m2 Allan Rosario MD Work Phone: [facility] 08-29-2024 08:11-0400 Body weight 106.5 kg Allan Rosario MD Work Phone: [facility] 08-29-2024 08:11-0400 Diastolic blood pressure 66 mm[Hg] Allan Rosario MD Work Phone: [facility] 08-29-2024 08:11-0400 Heart rate 56 /min Allan Rosario MD Work Phone: [facility] 08-29-2024 08:11-0400 Respiratory rate 18 /min Allan Rosario MD Work Phone: [facility] 08-29-2024 08:11-0400 Systolic blood pressure 128 mm[Hg] Allan Rosario MD Work Phone: [facility] 03-20-2024 09:31-0500 Body height 175.[address] Allan Rosario MD Work Phone: [facility] 03-20-2024 09:31-0500 Body mass index (BMI) [Ratio] 34.1 kg/m2 Dr. Allan Rosario MD Work Phone: [facility] 03-20-2024 09:31-0500 Body weight 104.[address] Allan Rosario MD Work Phone: 9(967)526-0328[address] [place] [address] 03-20-2024 09:31-0500 Diastolic blood pressure 64 mm[Hg] Dr. Allan Rosario MD Work Phone: 0(367)603-250621 [place] [address] 03-20-2024 09:31-0500 Heart rate 50 /min Dr. Allan Rosario MD Work Phone: 7(893)802-342921 [place] [address] 03-20-2024 09:31-0500 Respiratory rate 18 /min Dr. Allan Rosario MD Work Phone: [facility] 03-20-2024 09:31-0500 SaO2% (BldA) [Mass fraction] 97 % Dr. Allan Rosario MD Work Phone: [facility] 03-20-2024 09:31-0500 Systolic blood pressure 129 mm[Hg] Dr. Allan Rosario MD Work Phone: [facility] 02-29-2024 09:50-0500 Body mass index (BMI) [Ratio] 35.23 kg/m2 Allan Rosario MD Work Phone: [facility] 02-29-2024 09:50-0500 Body weight 105.1 kg Allan Rosario MD Work Phone: [facility] 02-29-2024 09:50-0500 Diastolic blood pressure 68 mm[Hg] Allan Rosario MD Work Phone: [facility] 02-29-2024 09:50-0500 Heart rate 68 /min Allan Rosario MD Work Phone: [facility] 02-29-2024 09:50-0500 Respiratory rate 18 /min Allan Rosario MD Work Phone: [facility] 02-29-2024 09:50-0500 Systolic blood pressure 116 mm[Hg] Allan Rosario MD Work Phone: [facility] 02-01-2024 07:54-0400 Body mass index (BMI) [Ratio] 36.57 kg/m2 Allan Rosario MD Work Phone: [facility] 02-01-2024 07:54-0400 Body weight 109.1 kg Allan Rosario MD Work Phone: [facility] 02-01-2024 07:54-0400 Diastolic blood pressure 88 mm[Hg] Allan Rosario MD Work Phone: [facility] 02-01-2024 07:54-0400 Heart rate 60 /min Allan Rosario MD Work Phone: [facility] 02-01-2024 07:54-0400 Respiratory rate 16 /min Allan Rosario MD Work Phone: [facility] 02-01-2024 07:54-0400 Systolic blood pressure 128 mm[Hg] Allan Rosario MD Work Phone: [facility] 07-30-2023 08:13-0400 Body weight 103.87 kg Allan Rosario MD Work Phone: [facility] 07-30-2023 08:13-0400 Diastolic blood pressure 70 mm[Hg] Allan Rosario MD Work Phone: [facility] 07-30-2023 08:13-0400 Heart rate 54 /min Allan Rosario MD Work Phone: [facility] 07-30-2023 08:13-0400 Respiratory rate 18 /min Allan Rosario MD Work Phone: [facility] 07-30-2023 08:13-0400 Systolic blood pressure 118 mm[Hg] Allan Rosario MD Work Phone: [facility] 04-15-2023 08:24-0500 Body height 175.[address] Allan Rosario Work Phone: [facility] 04-15-2023 08:24-0500 Body mass index (BMI) [Ratio] 33.2 kg/m2 Dr. Allan Rosario Work Phone: [facility] 04-15-2023 08:24-0500 Body weight 102.[address] Allan Rosario Work Phone: [facility] 04-15-2023 08:24-0500 Diastolic blood pressure 64 mm[Hg] Dr. Allan Rosario Work Phone: [facility] 04-15-2023 08:24-0500 Heart rate 50 /min Dr. Allan Rosario Work Phone: [facility] 04-15-2023 08:24-0500 Respiratory rate 16 /min Dr. Allan Rosario Work Phone: [facility] 04-15-2023 08:24-0500 Systolic blood pressure 117 mm[Hg] Dr. Allan Rosario Work Phone: [facility] 01-29-2023 08:06-0400 Body weight 102.74 kg Allan Rosario MD Work Phone: [facility] 01-29-2023 08:06-0400 Diastolic blood pressure 72 mm[Hg] Allan Rosario MD Work Phone: [facility] 01-29-2023 08:06-0400 Heart rate 68 /min Allan Rosario MD Work Phone: [facility] 01-29-2023 08:06-0400 Respiratory rate 16 /min Allan Rosario MD Work Phone: [facility] 01-29-2023 08:06-0400 Systolic blood pressure 128 mm[Hg] Allan Rosario MD Work Phone: [facility] 07-30-2022 08:35-0400 Body weight 102.88 kg Allan Rosario MD Work Phone: [facility] 07-30-2022 08:35-0400 Diastolic blood pressure 60 mm[Hg] Allan Rosario MD Work Phone: [facility] 07-30-2022 08:35-0400 Heart rate 64 /min Allan Rosario MD Work Phone: [facility] 07-30-2022 08:35-0400 Respiratory rate 18 /min Allan Rosario MD Work Phone: [facility] 07-30-2022 08:35-0400 Systolic blood pressure 120 mm[Hg] Allan Rosario MD Work Phone: [facility] 07-16-2022 07:49-0400 Body height 175.[address] Allan Rosario Work Phone: [facility] 07-16-2022 07:49-0400 Body mass index (BMI) [Ratio] 33 kg/m2 Dr. Allan Rosario Work Phone: [facility] 07-16-2022 07:49-0400 Body weight 101.[address] Allan Rosario Work Phone: 2(124)293-759425 [place] [address] 07-16-2022 07:49-0400 Diastolic blood pressure 63 mm[Hg] Dr. Allan Rosario Work Phone: 7(346)422-817925 [place] [address] 07-16-2022 07:49-0400 Heart rate 49 /min Dr. Allan Rosario Work Phone: 4(635)593-471925 [place] [address] 07-16-2022 07:49-0400 SaO2% (BldA) [Mass fraction] 98 % Dr. Allan Rosario Work Phone: 3(832)647-415225 [place] [address] 07-16-2022 07:49-0400 Systolic blood pressure 148 mm[Hg] Dr. Allan Rosario Work Phone: 0(683)838-983025 [place] [address] 07-07-2022 08:11-0400 Body mass index (BMI) [Ratio] 33 kg/m2 Dr. Allan Rosario Work Phone: 6(671)224-152425 [place] [address] 07-07-2022 08:11-0400 Body weight 101.[address] Allan Rosario Work Phone: 9(402)377-928125 [place] [address] 07-07-2022 08:11-0400 Diastolic blood pressure 70 mm[Hg] Dr. Allan Rosario Work Phone: 6(831)622-188425 [place] [address] 07-07-2022 08:11-0400 Heart rate 52 /min Dr. Allan Rosario Work Phone: 2(107)680-158325 [place] [address] 07-07-2022 08:11-0400 Respiratory rate 18 /min Dr. Allan Rosario Work Phone: 4(819)608-634525 [place] [address] 07-07-2022 08:11-0400 SaO2% (BldA) [Mass fraction] 98 % Dr. Allan Rosario Work Phone: 7(381)528-603925 [place] [address] 07-07-2022 08:11-0400 Systolic blood pressure 136 mm[Hg] Dr. Allan Rosario Work Phone: 6(595)922-686325 [place] [address] 07-01-2022 10:36-0400 Body temperature 98.5 [degF] Dr. Allan Rosario Work Phone: 6(162)442-172255 [address] 07-01-2022 10:36-0400 Diastolic blood pressure 69 mm[Hg] Dr. Allan Rosario Work Phone: 1(338)184-309825 [place] [address] 07-01-2022 10:36-0400 Heart rate 54 /min Dr. Allan Rosario Work Phone: 1(764)478-258921 [place] [address] 07-01-2022 10:36-0400 Respiratory rate 16 /min Dr. Allan Rosario Work Phone: 8(219)435-698425 [place] [address] 07-01-2022 10:36-0400 SaO2% (BldA) [Mass fraction] 95 % Dr. Allan Rosario Work Phone: 1(038)876-772125 [place] [address] 07-01-2022 10:36-0400 Systolic blood pressure 123 mm[Hg] Dr. Allan Rosario Work Phone: 9(475)250-146725 [place] [address] 07-01-2022 08:30-0400 Body height 175.[address] Allan Rosario Work Phone: 1(854)269-228625 [place] [address] 07-01-2022 08:30-0400 Body mass index (BMI) [Ratio] 32.8 kg/m2 Dr. Allan Rosario Work Phone: 9(489)368-524625 [place] [address] 07-01-2022 08:30-0400 Body weight 100.[address] Allan Rosario Work Phone: 4(151)772-969925 [place] [address] 04-29-2022 10:28-0500 Body height 172.[address] Allan Rosario Work Phone: 6(909)236-784721 [place] [address] 04-29-2022 10:28-0500 Body mass index (BMI) [Ratio] 33.7 kg/m2 Dr. Allan Rosario Work Phone: 7(804)864-002325 [place] [address] 04-29-2022 10:28-0500 Body weight 100.[address] Allan Rosario Work Phone: 0(807)608-954225 [place] [address] 01-11-2023 10:28-0500 Diastolic blood pressure 79 mm[Hg] Dr. Allan Rosario Work Phone: [facility] 04-29-2022 10:28-0500 Heart rate 49 /min Dr. Allan Rosario Work Phone: [facility] 04-29-2022 10:28-0500 SaO2% (BldA) [Mass fraction] 95 % Dr. Allan Rosario Work Phone: [facility] 04-29-2022 10:28-0500 Systolic blood pressure 157 mm[Hg] Dr. Allan Rosario Work Phone: [facility] 04-24-2022 08:56-0500 Body weight 100.74 kg Allan Rosario MD Work Phone: [facility] 04-24-2022 08:56-0500 Diastolic blood pressure 70 mm[Hg] Allan Rosario MD Work Phone: [facility] 04-24-2022 08:56-0500 Heart rate 74 /min Allan Rosario MD Work Phone: [facility] 04-24-2022 08:56-0500 Respiratory rate 16 /min Allan Rosario MD Work Phone: [facility] 04-24-2022 08:56-0500 Systolic blood pressure 118 mm[Hg] Allan Rosario MD Work Phone: [facility] 03-31-2022 13:38-0500 Body temperature 97.3 [degF] Dr. Allan Rosario Work Phone: [facility] 03-31-2022 13:38-0500 Body weight 100.[address] Allan Rosario Work Phone: [facility] 03-31-2022 13:38-0500 Diastolic blood pressure 71 mm[Hg] Dr. Allan Rosario Work Phone: [facility] 03-31-2022 13:38-0500 Heart rate 52 /min Dr. Allan Rosario Work Phone: [facility] 03-31-2022 13:38-0500 Respiratory rate 17 /min Dr. Allan Rosario Work Phone: [facility] 03-31-2022 13:38-0500 SaO2% (BldA) [Mass fraction] 98 % Dr. Allan Rosario Work Phone: [facility] 03-31-2022 13:38-0500 Systolic blood pressure 142 mm[Hg] Dr. Allan Rosario Work Phone: 9(428)671-206455 [address] 03-11-2022 13:37-0500 Body height 172.[address] Allan Rosario Work Phone: [facility] Work Phone: 03-11-2022 13:37-0500 Body mass index (BMI) [Ratio] 33.4 kg/m2 Dr. Allan Rosario Work Phone: 1(777)832-105321 [place] [address] 03-11-2022 13:37-0500 Body weight 99.[address] Allan Rosario Work Phone: 7(457)110-817255 [address] 03-11-2022 13:37-0500 Diastolic blood pressure 68 mm[Hg] Dr. Allan Rosario Work Phone: [facility] 03-11-2022 13:37-0500 Heart rate 59 /min Dr. Allan Rosario Work Phone: 2(191)742-563234 [place] [address] 03-11-2022 13:37-0500 Respiratory rate 18 /min Dr. Allan Rosario Work Phone: 2(691)008-025821 [place] [address] 03-11-2022 13:37-0500 SaO2% (BldA) [Mass fraction] 97 % Dr. Allan Rosario Work Phone: [facility] 03-11-2022 13:37-0500 Systolic blood pressure 130 mm[Hg] Dr. Allan Rosario Work Phone: [facility] 02-12-2022 09:48-0400 Body weight 98.93 kg Allan Rosario MD Work Phone: [facility] 02-12-2022 09:48-0400 Diastolic blood pressure 78 mm[Hg] Allan Rosario MD Work Phone: [facility] 02-12-2022 09:48-0400 Heart rate 60 /min Allan Rosario MD Work Phone: [facility] 02-12-2022 09:48-0400 Respiratory rate 16 /min Allan Rosario MD Work Phone: [facility] 02-12-2022 09:48-0400 Systolic blood pressure 124 mm[Hg] Allan Rosario MD Work Phone: [facility] 02-04-2022 09:02-0400 Heart rate 63 /min Dr. Allan Rosario Work Phone: [facility] 02-04-2022 09:01-0400 Body temperature 97.9 [degF] Dr. Allan Rosario Work Phone: 3(152)[phone] [place] [address] 02-04-2022 09:01-0400 Diastolic blood pressure 78 mm[Hg] Dr. Allan Rosario Work Phone: 2(383)[phone] [place] [address] 02-04-2022 09:01-0400 Respiratory rate 16 /min Dr. Allan Rosario Work Phone: [facility] 02-04-2022 09:01-0400 SaO2% (BldA) [Mass fraction] 96 % Dr. Allan Rosario Work Phone: [facility] 02-04-2022 09:01-0400 Systolic blood pressure 163 mm[Hg] Dr. Allan Rosario Work Phone: [facility] 02-04-2022 05:58-0400 Body weight 100.[address] Allan Rosario Work Phone: [facility] 02-03-2022 12:00-0400 Inhaled oxygen flow rate 2 L/min Dr. Allan Rosario Work Phone: [facility] 02-03-2022 09:36-0400 Body height 172.[address] Allan Rosario Work Phone: [facility] Work Phone: 02-03-2022 09:00-0400 Inhaled oxygen concentration 2 % Dr. Allan Rosario Work Phone: [facility] 02-03-2022 01:22-0400 Body mass index (BMI) [Ratio] 33.2 kg/m2 Dr. Allan Rosario Work Phone: [facility] 02-03-2022 00:12-0400 Body temperature 98.8 [degF] Dr. Allan Rosario Work Phone: [facility] Work Phone: 02-03-2022 00:12-0400 Diastolic blood pressure 76 mm[Hg] Dr. Allan Rosario Work Phone: [facility] Work Phone: 02-03-2022 00:12-0400 Heart rate 67 /min Dr. Allan Rosario Work Phone: [facility] Work Phone: 02-03-2022 00:12-0400 Respiratory rate 17 /min Dr. Allan Rosario Work Phone: [facility] Work Phone: 02-03-2022 00:12-0400 SaO2% (BldA) [Mass fraction] 93 % Dr. Allan Rosario Work Phone: [facility] Work Phone: 02-03-2022 00:12-0400 Systolic blood pressure 112 mm[Hg] Dr. Allan Rosario Work Phone: [facility] Work Phone: 02-02-2022 23:57-0400 Inhaled oxygen concentration 40 % Dr. Allan Rosario Work Phone: [facility] Work Phone: 02-02-2022 23:21-0400 Inhaled oxygen flow rate 80 L/min Dr. Allan Rosario Work Phone: [facility] Work Phone: 02-02-2022 22:25-0400 Body height 172.[address] Allan Rosario Work Phone: [facility] Work Phone: 02-02-2022 22:25-0400 Body mass index (BMI) [Ratio] 33.9 kg/m2 Dr. Allan Rosario Work Phone: [facility] Work Phone: 02-02-2022 22:25-0400 Body weight 101.[address] Allan Rosario Work Phone: [facility] Work Phone: 01-29-2022 08:42-0400 Body weight 100.7 kg Allan Rosario MD Work Phone: [facility] 01-29-2022 08:42-0400 Diastolic blood pressure 80 mm[Hg] Allan Rosario MD Work Phone: [facility] 01-29-2022 08:42-0400 Heart rate 74 /min Allan Rosario MD Work Phone: [facility] 01-29-2022 08:42-0400 Respiratory rate 16 /min Allan Rosario MD Work Phone: [facility] 01-29-2022 08:42-0400 Systolic blood pressure 138 mm[Hg] Allan Rosario MD Work Phone: [facility] 01-06-2022 08:52-0400 Body height 172.[address] Allan Rosario Work Phone: [facility] Work Phone: 01-06-2022 08:52-0400 Body mass index (BMI) [Ratio] 33.7 kg/m2 Dr. Allan Rosario Work Phone: [facility] Work Phone: 01-06-2022 08:52-0400 Body weight 100.[address] Allan Rosario Work Phone: [facility] Work Phone: 01-06-2022 08:52-0400 Diastolic blood pressure 77 mm[Hg] Dr. Allan Rosario Work Phone: [facility] Work Phone: 01-06-2022 08:52-0400 Heart rate 52 /min Dr. Allan Rosario Work Phone: [facility] Work Phone: 01-06-2022 08:52-0400 Respiratory rate 18 /min Dr. Allan Rosario Work Phone: [facility] Work Phone: 01-06-2022 08:52-0400 Systolic blood pressure 155 mm[Hg] Dr. Allan Rosario Work Phone: [facility] Work Phone: 09-30-2021 08:28-0400 Body height 172.[address] Allan Rosario Work Phone: [facility] Work Phone: 09-30-2021 08:28-0400 Body mass index (BMI) [Ratio] 33.4 kg/m2 Dr. Allan Rosario Work Phone: [facility] Work Phone: 09-30-2021 08:28-0400 Body weight 99.[address] Allan Rosario Work Phone: [facility] Work Phone: 09-30-2021 08:28-0400 Diastolic blood pressure 67 mm[Hg] Dr. Allan Rosario Work Phone: [facility] Work Phone: 09-30-2021 08:28-0400 Heart rate 48 /min Dr. Allan Rosario Work Phone: [facility] Work Phone: 09-30-2021 08:28-0400 Respiratory rate 16 /min Dr. Allan Rosario Work Phone: [facility] Work Phone: 09-30-2021 08:28-0400 Systolic blood pressure 139 mm[Hg] Dr. Allan Rosario Work Phone: [facility] Work Phone: 07-24-2021 08:16-0400 Body weight 101.61 kg Allan Rosario MD Work Phone: [facility] 07-24-2021 08:16-0400 Diastolic blood pressure 80 mm[Hg] Allan Rosario MD Work Phone: [facility] 07-24-2021 08:16-0400 Heart rate 52 /min Allan Rosario MD Work Phone: [facility] 07-24-2021 08:16-0400 Respiratory rate 16 /min Allan Rosario MD Work Phone: [facility] 07-24-2021 08:16-0400 SaO2% (BldA) [Mass fraction] 98 % Allan Rosario MD Work Phone: [facility] 07-24-2021 08:16-0400 Systolic blood pressure 138 mm[Hg] Allan Rosario MD Work Phone: [facility] 07-14-2021 08:40-0400 Body temperature 97.7 [degF] Eze Grijalva MD Work Phone: [facility] 07-14-2021 08:40-0400 Diastolic blood pressure 56 mm[Hg] Eze Grijalva MD Work Phone: [facility] 07-14-2021 08:40-0400 Heart rate 60 /min Eze Grijalva MD Work Phone: [facility] 07-14-2021 08:40-0400 Respiratory rate 20 /min zEe Grijalva MD Work Phone: [facility] 07-14-2021 08:40-0400 SaO2% (BldA) [Mass fraction] 96 % Eze Grijalva MD Work Phone: [facility] 07-14-2021 08:40-0400 Systolic blood pressure 123 mm[Hg] Eze Grijalva MD Work Phone: [facility] 07-14-2021 06:52-0400 Body height 172.7 cm Eze Grijalva MD Work Phone: [facility] 07-14-2021 06:52-0400 Body weight 96.62 kg Eze Grijalva MD Work Phone: [facility] 03-18-2021 07:02-0500 Body height 172.[address] Allan Rosario Work Phone: [facility] Work Phone: 03-18-2021 07:02-0500 Body weight 99.[address] Allan Rosario Work Phone: [facility] Work Phone: 03-18-2021 07:02-0500 Diastolic blood pressure 82 mm[Hg] Dr. Allan Rosario Work Phone: [facility] Work Phone: 03-18-2021 07:02-0500 Heart rate 60 /min Dr. Allan Rosario Work Phone: [facility] Work Phone: 03-18-2021 07:02-0500 Respiratory rate 14 /min Dr. Allan Rosario Work Phone: [facility] Work Phone: 03-18-2021 07:02-0500 Systolic blood pressure 164 mm[Hg] Dr. Allan Rosario Work Phone: [facility] Work Phone: 11-26-2020 14:54-0400 Body mass index (BMI) [Ratio] 33.6 kg/m2 Dr. Allan Rosario Work Phone: [facility] Work Phone: Encounters Encounter Date Encounter Type Care Provider Facility Start: 12-28-2024 ambulatory Lois Hines NP Facili ty:[facility] Start: 12-27-2024 End: 12-27-2024 Refill Allan Rosario MD Work Phone: [facility] Comment on above: Refill Request Start: 12-14-2024 End: 12-14-2024 Patient encounter procedure Lois Hines [facility] Work Phone: Start: 12-14-2024 End: 12-14-[address] Allan Rosario MD Work Phone: -[facility] Start: 12-14-2024 End: 12-14-2024 ambulatory Lois Hines NP Facility:[facility] Start: 12-12-2024 ambulatory Ronnie Aldridge Facility :[facility] Start: 09-13-2024 End: 09-13-2024 Follow-up encounter Hector Chaudhry MD Work Phone: [facility] Comment on above: Shingles (VZV+) Start: 09-12-2024 End: 09-12-2024 Patient encounter procedure Dayo WATTERS Work Phone: [facility] Comment on above: Rash (Primary Dx) Start: 09-12-2024 End: 09-12-2024 ambulatory DAYO Canales ABCHIDI Facility:[facility] Start: 08-29-2024 End: 08-29-2024 Office outpatient visit 25 minutes Allan Rosario MD Work Phone: [facility] Comment on above: Essential hypertensi on (Primary Dx); Type 2 diabetes mellitus with diabetic neuropathy, without long-term current use of insulin (HCC); Paroxysmal A-fib (HCC); Stage 3b chronic kidney disease (HCC); Mixed hyperlipidemia; Coronary artery disease involving [place]ki[place] coronary artery of [place]kiak heart without angina pectoris; Bilateral leg edema; Acquired hypothyroidism; RLS (restless legs syndrome); Neuropathy; Fibromyalgia; PRAKASH (obstructive sleep apnea); Gastroesophageal reflux disease with esophagitis without hemorrhage; Benign prostatic hyperplasia, unspecified whether lower urinary tract symptoms present; Malignant neoplasm of urinary bladder, unspecified site (HCC); Generalized abdominal pain; Screening for depression; Anemia, unspecified type Start: 08-29-2024 End: 08-29-2024 ambulatory ALLAN ROSARIO Facility:[facility] Start: 08-22-2024 End: 08-22-2024 ambulatory ALLAN ROSARIO Facility:[facility] Start: 07-08-2024 End: 07-10-2024 Refill Allan Rosario MD Work Phone: [facility] Comment on above: Refill Request Start: 07-06-2024 End: 07-06-[address] Allan Rosario MD Work Phone: [facility] Work Phone: Start: 07-06-2024 End: 07-06-[address] Eugene Foreman MD -Laboratory Work Phone: Start: 07-06-2024 End: 07-06-2024 [facility] Start: 05-16-2024 End: 05-17-2024 Telephone encounter Allan Rosario MD Work Phone: [facility] Comment on above: Insurance Authorizat ion Start: 05-09-2024 End: 05-09-2024 Refill Allan Rosario MD Work Phone: [facility] Comment on above: Refill Request Start: 04-11-2024 End: 05-01-2024 Telephone encounter Allan Rosario MD Work Phone: [facility] Comment on above: order form Start: 03-20-2024 End: 03-20-2024 Patient encounter procedure Marvin Hagen NP-[facility] Work Phone: Start: 03-20-2024 End: 03-20-2024 ambulatory Allan Rosario Facility:[facility] Start: 02-29-2024 End: 02-29-2024 ambulatory ALLAN ROSARIO Facility:[facility] Start: 02-29-2024 End: 02-29-2024 Patient encounter procedure Allan Rosario MD Work Phone: [facility] Comment on above: Type 2 diabetes jordan itus with diabetic neuropathy, without long-term current use of insulin (HCC) (Primary Dx); Bilateral leg edema; Abdominal bloating; Palpitations; Acquired hypothyroidism; Essential hypertension; Mixed hyperlipidemia; Stage 3b chronic kidney disease (HCC); Anemia, unspecified type; Paroxysmal A-fib (HCC) Start: 02-23-2024 ambulatory Agnes Venkata Facility:[facility] Start: 02-23-2024 End: 02-23-2024 ambulatory ALLAN ROSARIO Facility:[facility] Start: 02-23-2024 End: 02-23-2024 ambulatory Allan Sarmientoiona Facility:[facility] Start: 02-16-2024 End: 02-16-2024 ambulatory Allan Sarmientoiona Facility:[facility] Start: 02-15-2024 End: 02-15-2024 ambulatory Marvin Hagen Facility:[facility] Start: 02-01-2024 End: 02-01-2024 [facility] Start: 02-01-2024 End: 02-01-2024 Patient encounter procedure Allan Rosario MD Work Phone: [facility] Comment on above: Type 2 diabetes jordan itus with diabetic neuropathy, without long-term current use of insulin (HCC) (Primary Dx); Acquired hypothyroidism; Essential hypertension; Coronary artery disease involving [place] coronary artery of [place]ki[place] heart without angina pectoris; PRAKASH (obstructive sleep apnea); Mixed hyperlipidemia; Neuropathy; Stage 3b chronic kidney disease (HCC); Bilateral leg edema; Abdominal bloating Start: 01-25-2024 End: 01-25-2024 ambulatory ALLAN ROSARIO Facility:[facility] Start: 01-08-2024 End: 01-10-2024 Refill Allan Rosario MD Work Phone: [facility] Comment on above: Refill Request Start: 09-16-2023 Telephone encounter Allan russell MD Work Phone: [facility] Comment on above: Forms ([employer]) Start: 07-30-2023 End: 07-30-2023 Patient encounter procedure Allan Rosario MD Work Phone: [facility] Comment on above: Type 2 diabetes jordan itus with diabetic neuropathy, without long-term current use of insulin (HCC) (Primary Dx); Essential hypertension; Mixed hyperlipidemia; Acquired hypothyroidism; Fibromyalgia; RLS (restless legs syndrome); Neuropathy; PRAKASH (obstructive sleep apnea); Gastroesophageal reflux disease with esophagitis without hemorrhage; Generalized abdominal pain; Benign prostatic hyperplasia, unspecified whether lower urinary tract symptoms present; Anemia, unspecified type; Chronic kidney disease, stage 3a (HCC); Stage 3b chronic kidney disease (HCC); Paroxysmal A-fib (HCC) Start: 07-06-2023 End: 07-06-[address] Allan Rosario Work Phone: [facility] Work Phone: Start: 07-06-2023 End: 07-06-[address] [facility]: Start: 06-07-2023 End: 06-07-[address] Allan Rosario Work Phone: [facility] Work Phone: Start: 06-07-2023 End: 06-07-[address] [facility]: Start: 04-15-2023 End: 04-15-[address] Allan Rosario Work Phone: [facility] Work Phone: Start: 03-22-2023 Refill Allan mendez MD Work Phone: [facility] Comment on above: Refill Request Start: 02-22-2023 Telephone encounter Allan russell MD Work Phone: [facility] Comment on above: Forms ([employer]) Start: 01-29-2023 End: 01-29-2023 Patient encounter procedure Allan Rosario MD Work Phone: [facility] Comment on above: Type 2 diabetes jordan itus with diabetic neuropathy, without long-term current use of insulin (HCC) (Primary Dx); Fibromyalgia; RLS (restless legs syndrome); Neuropathy; Essential hypertension; Coronary artery disease involving [place] coronary artery of [place]ki[place] heart without angina pectoris; Mixed hyperlipidemia; Paroxysmal A-fib (HCC); PRAKASH (obstructive sleep apnea); Malignant neoplasm of urinary bladder, unspecified site (HCC); Acquired hypothyroidism; Benign prostatic hyperplasia, unspecified whether lower urinary tract symptoms present; Anxiety; Class 1 obesity due to excess calories with serious comorbidity and body mass index (BMI) of 34.0 to 34.9 in adult; Chronic kidney disease, stage 3a (HCC) Start: 11-24-2022 Refill Allan mendez MD Work Phone: [facility] Comment on above: Refill Request Start: 11-24-2022 Refill Allan mendez MD Work Phone: [facility] Comment on above: Med Change Request Start: 09-28-2022 Refill Kamari Melendez APRN.CNP Work Phone: [facility] Comment on above: Refill Request Start: 08-23-2022 Get Medical Advice Allan blanton MD Work Phone: [facility] Comment on above: Prescription Refill Start: 07-30-2022 End: 07-30-2022 Patient encounter procedure Allan Rosario MD Work Phone: [facility] Comment on above: Type 2 diabetes jordan itus with diabetic neuropathy, without long-term current use of insulin (HCC) (Primary Dx); Abdominal aortic aneurysm (AAA) without rupture, unspecified part (HCC); Essential hypertension; Mixed hyperlipidemia; Coronary artery disease involving [place] coronary artery of [place]ki[place] heart without angina pectoris; PRAKASH (obstructive sleep apnea); Acquired hypothyroidism Start: 07-16-2022 End: 07-16-[address] Allan Rosario Work Phone: [facility] Start: 07-13-2022 End: 07-13-[address] Allan Rosario Work Phone: [facility] Work Phone: Start: 07-13-2022 End: 07-13-[address] Allan Rosario Work Phone: [facility]-Laboratory Start: 07-07-2022 End: 07-07-[address] Allan Rosario Work Phone: [facility] Start: 07-01-2022 Non-patient / Non-visit Dr. Drew Rosario Work Phone: [facility] Start: 07-01-2022 End: 07-01-2022 Admission to same day surgery center Dr. Allan Rosario Work Phone: [facility]-Endoscopy Start: 07-01-2022 End: 07-01-[address] Allan Rosario Work Phone: [facility] Work Phone: Start: 05-08-2022 End: 05-08-[address] Allan Rosario Work Phone: [facility] Work Phone: Start: 05-08-2022 End: 05-08-[address] Allan Rosario Work Phone: [facility]-Nuclear Medicine, [facility] Start: 05-01-2022 End: 05-01-[address] Allan Rosario Work Phone: [facility] Work Phone: Start: 05-01-2022 End: 05-01-[address] Allan Rosario Work Phone: [facility]-Laboratory, Specimen Start: 04-29-2022 End: 04-29-[address] Allan Rosario Work Phone: [facility] Work Phone: Start: 04-29-2022 End: 04-29-[address] Allan Rosario Work Phone: [facility]-Laboratory Start: 04-29-2022 End: 04-29-[address] Allan Rosario Work Phone: [facility] Start: 04-28-2022 End: 04-28-[address] Allan Rosario Work Phone: [facility] Work Phone: Start: 04-28-2022 End: 04-28-[address] Allan Rosario Work Phone: [facility] Start: 04-24-2022 End: 04-24-2022 Patient encounter procedure Allan Rosario MD Work Phone: [facility] Comment on above: PRAKASH (obstructive sle ep apnea) (Primary Dx); Type 2 diabetes mellitus without complication, without long-term current use of insulin (HCC); Type 2 diabetes mellitus with diabetic neuropathy, without long-term current use of insulin (HCC); Essential hypertension; Coronary artery disease involving [place] coronary artery of [place] heart without angina pectoris; Rheumatoid arthritis, involving unspecified site, unspecified rheumatoid factor presence; Paroxysmal A-fib (HCC) Start: 04-08-2022 Refill Allan mendez MD Work Phone: [facility] Comment on above: Refill Request Start: 03-31-2022 End: 03-31-[address] Allan Rosario Work Phone: [facility] Start: 03-18-2022 End: 03-18-[address] Allan Rosario Work Phone: [facility] Work Phone: Start: 03-18-2022 End: 03-18-[address] Allan Rosario Work Phone: [facility]-Laboratory Start: 03-11-2022 End: 03-11-[address] Allan Rosario Work Phone: [facility] Work Phone: Start: 03-11-2022 End: 03-11-[address] Allan Rosario Work Phone: [facility]-Laboratory Start: 03-11-2022 End: 03-11-[address] Allan Rosario Work Phone: [facility] Start: 02-13-2022 Telephone encounter Allan russell MD Work Phone: [facility] Comment on above: Clinical Update Start: 02-12-2022 End: 02-12-2022 Patient encounter procedure Allan Rosario MD Work Phone: [facility] Comment on above: Hospital discharge f ollow-up (Primary Dx); Fibromyalgia; Type 2 diabetes mellitus with diabetic neuropathy, without long-term current use of insulin (HCC); Ischemic cardiomyopathy; Paroxysmal A-fib (HCC); Coronary artery disease involving akiak coronary artery of akiak heart without angina pectoris; Essential hypertension; Mixed hyperlipidemia; PRAKASH (obstructive sleep apnea); Acquired hypothyroidism Start: 02-05-2022 Patient Outreach Allan hernandez MD Work Phone: [facility] Comment on above: Transition Of Care ( [facility] discharge) Referral Request Start: 02-04-2022 Non-patient / Non-visit Dr. Drew Rosario Work Phone: [facility] Inpatient Physicians Start: 02-04-2022 Non-patient / Non-visit Dr. Drew Rosario Work Phone: [facility] Start: 02-04-2022 Non-patient / Non-visit Dr. Drew Rosario Work Phone: [facility] Start: 02-03-2022 Non-patient / Non-visit Dr. Drew Rosario Work Phone: [facility] Start: 02-03-2022 Telephone encounter Allan russell MD Work Phone: [facility] Comment on above: Medication Problem ( allergy alert/) Start: 02-03-2022 Non-patient / Non-visit Dr. Drew Rosario Work Phone: [facility] Start: 02-03-2022 Non-patient / Non-visit Dr. Drew Rosario Work Phone: [facility] Start: 02-03-2022 End: 02-04-2022 Evaluation and management of inpatient Dr. Allan Rosario Work Phone: [facility] Start: 02-03-2022 Non-patient / Non-visit Dr. Drew Rosario Work Phone: [facility] Inpatient Physicians Start: 01-29-2022 Refill Allan mendez MD Work Phone: [facility] Comment on above: Med Change Request Start: 01-29-2022 End: 01-29-2022 Patient encounter procedure Allan Rosario MD Work Phone: [facility] Comment on above: Type 2 diabetes jordan itus with diabetic neuropathy, without long-term current use of insulin (HCC) (Primary Dx); Neuropathy; Essential hypertension; Coronary artery disease involving [place] coronary artery of [place] heart without angina pectoris; Mixed hyperlipidemia; PRAKASH (obstructive sleep apnea); Lung nodule, solitary; Acquired hypothyroidism Start: 01-17-2022 End: 01-17-[address] Allan Rosario Work Phone: [facility] Work Phone: Start: 01-17-2022 End: 01-17-[address] Allan Rosario Work Phone: [facility] Start: 01-06-2022 End: 01-06-[address] Allan Rosario Work Phone: [facility] Start: 09-30-2021 End: 09-30-[address] Allan Rosario Work Phone: [facility] Start: 09-30-2021 End: 09-30-[address] Allan Rosario Work Phone: [facility] Start: 08-26-2021 Telephone encounter Halina Garzon APRN.[employer]ADER Work Phone: Gastroenterology Comment on above: Results Start: 08-26-2021 End: 08-26-2021 Subsequent hospital visit by physician [facility] Work Phone: Radiology Comment on above: Constipation, unspec ified constipation type [K59.00] Start: 08-19-2021 Telephone encounter Kamarilouisa villagomez APRN.[employer] BEADER Work Phone: [facility] Comment on above: Results Start: 08-15-2021 End: 08-15-2021 Subsequent hospital visit by physician [facility] Radiology Comment on above: Lung nodules [R91.8] Start: 07-24-2021 End: 07-24-2021 Patient encounter procedure Allan Rosario MD Work Phone: [facility] Comment on above: Type 2 diabetes jordan itus without complication, without long- term current use of insulin (HCC) (Primary Dx); Essential hypertension; Mixed hyperlipidemia; Acquired hypothyroidism; Neuropathy; Fibromyalgia; RLS (restless legs syndrome); Generalized abdominal pain; S/P CABG (coronary artery bypass graft); PRAKASH (obstructive sleep apnea) Start: 07-14-2021 Telephone encounter Eze Grijalva MD Work Phone: General Surgery Comment on above: Procedure Follow Up (EGD and colonoscopy follow up) Start: 07-14-2021 End: 07-14-2021 Subsequent hospital visit by physician Eze Grijalva MD Work Phone: [facility] Endoscopy Comment on above: Pain of upper abdome n [R10.10] Start: 07-10-2021 End: 07-10-[address] Allan Rosario Work Phone: [facility]-Laboratory, Specimen Start: 03-18-[address] Allan Rosario Work Phone: [facility] Start: 03-18-2021 End: 03-18-2021 Encounter for other preprocedural examination Dr. Allan Rosario Work Phone: [facility] Start: 03-18-2021 End: 03-18-[address] Allan Rosario Work Phone: [facility] Start: 03-17-2021 Telephone encounter Halina Garzon APRN.CNP Work Phone: Gastroenterology Comment on above: 07-14-2021 Colon EGD [facility] Start: 08-22-2020 End: 08-22-2020 Subsequent hospital visit by physician [facility] Work Phone: Radiology Comment on above: Rib pain on left eliseo e [R07.81] Procedures Date Procedure Procedure Detail Performing Clinician Start: 12-14-2024 X-ray of chest, PA and lateral views Dr. Allan Rosario MD Work Phone: Start: 08-29-2024 Adult depression screening assessment Allan Rosario MD Work Phone: Start: 07-30-2023 Adult depression screening assessment Allan Rosario MD Work Phone: Start: 07-06-2023 PSA screening [facility] Provider Start: 07-01-[address] Allan Rosario Work Phone: Start: 05-08-2022 Radionuclide gastric emptying study Dr. Allan Rosario Work Phone: Start: 04-28-2022 MRI of abdomen with contrast Dr. Allan Rosario Work Phone: Start: 02-04-2022 Plain chest X-ray Dr. Allan Rosario Work Phone: Start: 02-02-2022 Plain chest X-ray Dr. Allan Rosario Work Phone: Start: 01-17-2022 Other BP Soft Tissue Dr. Allan Rosario Work Phone: Start: 08-26-2021 Radiologic exam abdomen 1 view Halina Evan s HEALTH INFORMATICS SPECIALIST.[employer]ADER Work Phone: Start: 08-15-2021 Ct thorax w/o contrast material Kamari Lena dawson HEALTH INFORMATICS SPECIALIST.[employer]ADER Work Phone: Start: 07-14-2021 Gluc bld gluc mntr dev cleared fda spec home use Francesca Umina AA Work Phone: Start: 07-14-2021 Esophagogastroduodenoscopy transoral diagnostic Eze Grijalva MD Work Phone: Start: 07-14-2021 Colonoscopy flx dx w/collj spec when pfrmd Eze Grijalva MD Work Phone: Start: 07-14-2021 Gluc bld gluc mntr dev cleared fda spec home use Francesca Umina AA Work Phone: Start: 07-14-2021 Colonoscopy Eze Grijalva MD Work Phone: Start: 08-22-2020 Radiologic exam chest 2 views Allan Rosario MD Work Phone: Start: 08-22-2020 Adult depression screening assessment Eze Grijalva MD Work Phone: Start: 02-06-2019 History of coronary artery bypass grafting S/P CABG (coronary artery bypass graft) Eze Grijalva MD Work Phone: Start: 02-06-2019 History of placement of stent for coronary artery disease S/P coronary artery stent placement Eze Grijalva MD Work Phone: History of cholecystectomy Hx of cholecys tectomy Dr. Allan Rosario Work Phone: History of coronary artery bypass grafting S/P CABG (coronary artery bypass graft) Dr. Allan Rosario Work Phone: History of coronary artery bypass grafting Hx of CABG Dr. Allan Rosario Work Phone: Comment on above: X3 History of coronary artery bypass grafting S/P CABG (coronary artery bypass graft) Allan Rosario MD Work Phone: History of decompres moses of median nerve History of carpal tunnel release Dr. Allan Rosario Work Phone: Comment on above: bilateral History of repair of musculotendinous cuff of shoulder Hx of repair of rotator cuff Dr. Allan Rosario Work Phone: Comment on above: bilateral History of transuret hral prostatectomy Hx of transurethral resection of prostate Dr. Allan Rosario Work Phone: Lactoferrin measurement Dr. Allan Rosario Work Phone: SARS-CoV-2 & FLU Antigen (Rapid) Dr. Allan Rosario Work Phone: SARS-CoV-2 & FLU Antigen (Rapid) Dr. Allan Rosario Work Phone: Plan of Treatment Date Care Activity Detail Author Start: 07-15-2031 Colonoscopy COLONOSCOPY [facility] Start: 07-15-2031 COLORECTAL CANCER SCREENING COLORECTAL CANCER SCREENING [facility] Start: 07-14-2026 Colonoscopy COLONOSCOPY [facility] Start: 07-14-2026 COLORECTAL CANCER SCREENING COLORECTAL CANCER SCREENING [facility] Start: 07-14-2026 Screening for malignant neoplasm of colon [facility] Start: 09-12-2025 BP Controlled (<130/80) BP Controlled (<130/80) [facility] Start: 08-29-2025 Annual PCP Team Chronic Disease Visit Annual PCP Team Chronic Disease Visit [facility] Start: 08-29-2025 BP Controlled (<130/80) BP Controlled (<130/80) [facility] Start: 08-29-2025 Depression Screening Depression Screening [facility] Start: 08-22-2025 Complete blood count Hemoglobin/Hematocrit [facility] Start: 08-22-2025 Creatinine measurement Serum Creatinine [facility] Start: 08-22-2025 Hepatitis B screening Urine Albumin:Creatinine Ratio [facility] Start: 08-22-2025 Hepatitis B surface antibody level LDL Cholesterol [facility] Start: 03-01-2025 RSV Vaccine (1 - 1-dose 75+ series) RSV Vaccine (1 - 1-dose 75+ series) [facility] Comment on above: Postponed from 2024 (Insurance Cov erage) Start: 03-01-2025 Shingrix Vaccine (1 of 2) Shingrix Vaccine (1 of 2) [facility] Comment on above: Postponed from 1999 (Insurance Cov erage) Start: 02-28-2025 Annual PCP Team Chronic Disease Visit Annual PCP Team Chronic Disease Visit [facility] Start: 02-28-2025 BP Controlled (<130/80) BP Controlled (<130/80) [facility] Start: 02-22-2025 Complete blood count Hemoglobin/Hematocrit [facility] Start: 02-22-2025 Creatinine measurement Serum Creatinine [facility] Start: 02-22-2025 Hemoglobin A1c measurement HbA1C [facility] Start: 02-13-2025 End: 05-15-2025 CBC W Auto Differential panel - Blood COMPLETE BLOOD COUNT AND DIFFERENTIAL Lab Routine Anemia, unspecified type Expected: 02/13/2025 (Approximate), Expires: 05/15/2025 [facility] Comment on above: Expected: 02/13/2025 (Approximate), Expi res: 05/15/2025 Start: 02-13-2025 End: 05-15-2025 Comprehensive metabolic 2000 panel - Serum or Plasma COMPREHENSIVE METABOLIC PANEL Lab Routine Type 2 diabetes mellitus with diabetic neuropathy, without long-term current use of insulin (HCC) Essential hypertension Stage 3b chronic kidney disease (HCC) Mixed hyperlipidemia Bilateral leg edema Expected: 02/13/2025 (Approximate), Expires: 05/15/2025 [facility] Work Phone: Comment on above: Expected: 02/13/2025 (Approximate), Expi res: 05/15/2025 Start: 02-13-2025 End: 05-15-2025 Hemoglobin A1c in Blood HEMOGLOBIN A1C Lab Routine Type 2 diabetes mellitus with diabetic neuropathy, without long-term current use of insulin (HCC) Expected: 02/13/2025 (Approximate), Expires: 05/15/2025 [facility] Comment on above: Expected: 02/13/2025 (Approximate), Expi res: 05/15/2025 Start: 02-13-2025 End: 05-15-2025 Lipid 1996 panel - Serum or Plasma LIPID PANEL, FASTING Lab Routine Type 2 diabetes mellitus with diabetic neuropathy, without long-term current use of insulin (HCC) Essential hypertension Mixed hyperlipidemia Coronary artery disease involving [place] coronary artery of [place] heart without angina pectoris Expected: 02/13/2025 (Approximate), Expires: 05/15/2025 [facility] Comment on above: Expected: 02/13/2025 (Approximate), Expi res: 05/15/2025 Start: 02-13-2025 End: 05-15-2025 Thyrotropin [Units/volume] in Serum or Plasma THYROID STIMULATING HORMONE Lab Routine Acquired hypothyroidism Expected: 02/13/2025 (Approximate), Expires: 05/15/2025 [facility] Comment on above: Expected: 02/13/2025 (Approximate), Expi res: 05/15/2025 Start: 02-13-2025 End: 02-13-2025 Patient encounter procedure 02/13/2025 8:00 AM EDT Office Visit [facility] [place] [address] [facility] [place] [id number] Allan Rosario MD [address] [facility] [place] [id number] 6 mo f/u - [employer] [facility] [place] Comment on above: 6 mo f/u - [employer] Start: 02-06-2025 End: 02-06-2025 ambulatory 02/06/2025 7:00 AM EDT Results Only [facility] [address] [place] [address] lab [facility] Comment on above: lab Start: 01-31-2025 Annual PCP Team Chronic Disease Visit Annual PCP Team Chronic Disease Visit [facility] Start: 01-31-2025 Covid-19 Vaccine ( season) Covid-19 Vaccine () [facility] Comment on above: Postponed from 12/19/2023 (Declined at t his time) Start: 01-24-2025 Complete blood count Hemoglobin/Hematocrit [facility] Start: 01-24-2025 Creatinine measurement Serum Creatinine [facility] Start: 01-24-2025 Hepatitis B surface antibody level LDL Cholesterol [facility] Start: 12-28-2024 Measurement of respiratory function [facility] Start: 12-18-2024 Influenza vaccination [facility] Start: 12-14-2024 Evaluation of diagnostic study results [facility] Start: 10-16-2024 Influenza vaccination Influenza Vaccine (#1) [facility] Comment on above: Postponed from 12/19/2023 (Declined at t his time) Start: 09-12-2024 End: 12-12-2024 Herpes simplex virus+Varicella zoster virus DNA [Presence] in Unspecified specimen by DAMON with probe detection [facility] Work Phone: Comment on above: Expected: 09/12/2024, Expires: Start: 08-29-2024 End: 08-29-2024 Patient encounter procedure 08/29/2024 8:00 AM EDT Office Visit Family [facility] [address] [place] [address] Allan Rosario MD [address] [place] [address] 6 mo f/u Family [facility] Comment on above: 6 mo f/u Start: 08-28-2024 End: 11-27-2024 CBC W Auto Differential panel - Blood COMPLETE BLOOD COUNT AND DIFFERENTIAL Lab Routine Anemia, unspecified type Expected: 08/28/2024 (Approximate), Expires: 11/27/2024 [facility] Comment on above: Expected: 08/28/2024 (Approximate), Expi res: 11/27/2024 Start: 08-28-2024 End: 11-27-2024 Comprehensive metabolic 2000 panel - Serum or Plasma COMPREHENSIVE METABOLIC PANEL Lab Routine Type 2 diabetes mellitus with diabetic neuropathy, without long-term current use of insulin (HCC) Essential hypertension Mixed hyperlipidemia Stage 3b chronic kidney disease (HCC) Expected: 08/28/2024 (Approximate), Expires: 11/27/2024 [facility] Work Phone: Comment on above: Expected: 08/28/2024 (Approximate), Expi res: 11/27/2024 Start: 08-28-2024 End: 11-27-2024 Hemoglobin A1c in Blood HEMOGLOBIN A1C Lab Routine Type 2 diabetes mellitus with diabetic neuropathy, without long-term current use of insulin (HCC) Expected: 08/28/2024 (Approximate), Expires: 11/27/2024 [facility] Comment on above: Expected: 08/28/2024 (Approximate), Expi res: 11/27/2024 Start: 08-28-2024 End: 11-27-2024 Lipid 1996 panel - Serum or Plasma LIPID PANEL BASIC Lab Routine Type 2 diabetes mellitus with diabetic neuropathy, without long-term current use of insulin (HCC) Essential hypertension Mixed hyperlipidemia Expected: 08/28/2024 (Approximate), Expires: 11/27/2024 [facility] Comment on above: Expected: 08/28/2024 (Approximate), Expi res: 11/27/2024 Start: 08-28-2024 End: 11-27-2024 Microalbumin/Creatinine [Mass Ratio] in Urine ALBUMIN/CREATININE RATIO, URINE Lab Routine Type 2 diabetes mellitus with diabetic neuropathy, without long-term current use of insulin (HCC) Expected: 08/28/2024 (Approximate), Expires: 11/27/2024 [facility] Comment on above: Expected: 08/28/2024 (Approximate), Expi res: 11/27/2024 Start: 08-22-2024 End: 08-22-2024 ambulatory 08/22/2024 7:00 AM EDT Results Only [facility] [address] [place] [address] lab [facility] Comment on above: lab Start: 07-29-2024 Annual PCP Team Chronic Disease Visit Annual PCP Team Chronic Disease Visit [facility] Start: 07-29-2024 BP Controlled (<130/80) BP Controlled (<130/80) [facility] Start: 07-29-2024 Depression Screening Depression Screening [facility] Start: 07-26-2024 Complete blood count Hemoglobin/Hematocrit [facility] Start: 07-26-2024 Creatinine measurement Serum Creatinine [facility] Start: 07-26-2024 Hepatitis B screening Urine Albumin:Creatinine Ratio [facility] Start: 07-26-2024 Hepatitis B surface antibody level LDL Cholesterol [facility] Start: 07-25-2024 Hemoglobin A1c [facility] Start: 04-19-2024 Advance Directive Discussion Advance Directive Discussion [facility] Start: 2024 RSV Vaccine (1 - 1-dose 75+ series) RSV Vaccine (1 - 1-dose 75+ series) [facility] Start: 03-03-2024 End: 06-02-2024 Basic metabolic 2000 panel - Serum or Plasma BASIC METABOLIC PANEL Lab Routine Essential hypertension Stage 3b chronic kidney disease (HCC) Expected: 03/03/2024 (Approximate), Expires: 06/02/2024 [facility] Work Phone: Comment on above: Expected: 03/03/2024 (Approximate), Expi res: 06/02/2024 Start: 03-03-2024 End: 06-02-2024 CBC panel - Blood by Automated count COMPLETE BLOOD COUNT Lab Routine Essential hypertension Stage 3b chronic kidney disease (HCC) Expected: 03/03/2024 (Approximate), Expires: 06/02/2024 [facility] Comment on above: Expected: 03/03/2024 (Approximate), Expi res: 06/02/2024 Start: 02-29-2024 End: 02-29-2024 Patient encounter procedure 02/29/2024 10:00 AM EST Office Visit [facility] [address] [place] [address] Allan Rosario MD [address] [place] [phone] follow up Family [facility] Comment on above: follow up Start: 02-23-2024 End: 02-23-2024 ambulatory 02/23/2024 7:00 AM EST Results Only [facility] [address] [place] [address] Labs [facility] Comment on above: Labs Start: 02-01-2024 End: 02-01-2024 Patient encounter procedure 02/01/2024 8:00 AM EDT Office Visit Family [facility] [place] [address] [place] [address] Allan Rosario MD [address] [place] [address] 6 mo f/u [facility] [place] Comment on above: 6 mo f/u Start: 01-30-2024 Annual PCP Team Chronic Disease Visit Annual PCP Team Chronic Disease Visit [facility] Start: 01-30-2024 BP Controlled (<130/80) BP Controlled (<130/80) [facility] Start: 01-30-2024 Covid-19 Vaccine (#1) Covid-19 Vaccine (#1) [facility] Comment on above: Postponed from 1949 (Declined at t his time) Start: 01-30-2024 Covid-19 Vaccine () Covid-19 Vaccine () [facility] Comment on above: Postponed from 12/18/2022 (Declined at t his time) Start: 01-29-2024 End: 04-29-2024 CBC W Auto Differential panel - Blood COMPLETE BLOOD COUNT AND DIFFERENTIAL Lab Routine Essential hypertension Expected: 01/29/2024 (Approximate), Expires: 04/29/2024 [facility] Work Phone: Comment on above: Expected: 01/29/2024 (Approximate), Expi res: 04/29/2024 Start: 01-29-2024 End: 04-29-2024 Comprehensive metabolic 2000 panel - Serum or Plasma COMPREHENSIVE METABOLIC PANEL Lab Routine Type 2 diabetes mellitus with diabetic neuropathy, without long-term current use of insulin (HCC) Essential hypertension Mixed hyperlipidemia Expected: 01/29/2024 (Approximate), Expires: 04/29/2024 [facility] Work Phone: Comment on above: Expected: 01/29/2024 (Approximate), Expi res: 04/29/2024 Start: 01-29-2024 End: 04-29-2024 Hemoglobin A1c in Blood HEMOGLOBIN A1C Lab Routine Type 2 diabetes mellitus with diabetic neuropathy, without long-term current use of insulin (HCC) Expected: 01/29/2024 (Approximate), Expires: 04/29/2024 [facility] Work Phone: Comment on above: Expected: 01/29/2024 (Approximate), Expi res: 04/29/2024 Start: 01-29-2024 End: 04-29-2024 Lipid 1996 panel - Serum or Plasma LIPID PANEL BASIC Lab Routine Type 2 diabetes mellitus with diabetic neuropathy, without long-term current use of insulin (HCC) Essential hypertension Mixed hyperlipidemia Expected: 01/29/2024 (Approximate), Expires: 04/29/2024 [facility] Work Phone: Comment on above: Expected: 01/29/2024 (Approximate), Expi res: 04/29/2024 Start: 01-29-2024 End: 04-29-2024 Thyrotropin [Units/volume] in Serum or Plasma THYROID STIMULATING HORMONE Lab Routine Acquired hypothyroidism Expected: 01/29/2024 (Approximate), Expires: 04/29/2024 [facility] Work Phone: Comment on above: Expected: 01/29/2024 (Approximate), Expi res: 04/29/2024 Start: 01-28-2024 Hemoglobin/Hematocrit Hemoglobin/Hematocrit [facility] Start: 01-28-2024 Hepatitis B surface antibody level LDL Cholesterol [facility] Start: 01-28-2024 Serum Creatinine Serum Creatinine [facility] Start: 01-26-2024 Hemoglobin A1c [facility] Start: 01-25-2024 End: 01-25-2024 ambulatory 01/25/2024 7:00 AM EDT Results Only [facility] [address] [place] [address] lab [facility] Comment on above: lab Start: 12-19-2023 Covid-19 Vaccine ( season) Covid-19 Vaccine () [facility] Start: 12-19-2023 Influenza vaccination [facility] Start: 08-01-2023 Hepatitis B screening URINE ALBUMIN:CREATININE RATIO [facility] Start: 08-01-2023 Hepatitis B surface antibody level LDL CHOLESTEROL [facility] Start: 07-31-2023 End: 09-30-2023 ALBUMIN/CREAT RATIO RND UR ALBUMIN/CREAT RATIO RND UR Lab Routine Type 2 diabetes mellitus with diabetic neuropathy, without long-term current use of insulin (HCC) Expected: 07/31/2023 (Approximate), Expires: 09/30/2023 [facility] Work Phone: Comment on above: Expected: 07/31/2023 (Approximate), Expi res: 09/30/2023 Start: 07-31-2023 ANNUAL PCP TEAM CHRONIC DISEASE VISIT ANNUAL PCP TEAM CHRONIC DISEASE VISIT [facility] Start: 07-31-2023 BP CONTROLLED (<130/80) BP CONTROLLED (<130/80) [facility] Start: 07-31-2023 End: 09-30-2023 CBC W Auto Differential panel - Blood CBC + DIFF Lab Routine Paroxysmal A-fib (HCC) Expected: 07/31/2023 (Approximate), Expires: 09/30/2023 [facility] Work Phone: Comment on above: Expected: 07/31/2023 (Approximate), Expi res: 09/30/2023 Start: 07-31-2023 End: 09-30-2023 Comprehensive metabolic 2000 panel - Serum or Plasma COMP METABOLIC PANEL Lab Routine Type 2 diabetes mellitus with diabetic neuropathy, without long-term current use of insulin (HCC) Coronary artery disease involving [place] coronary artery of [place] heart without angina pectoris Mixed hyperlipidemia Expected: 07/31/2023 (Approximate), Expires: 09/30/2023 [facility] Work Phone: Comment on above: Expected: 07/31/2023 (Approximate), Expi res: 09/30/2023 Start: 07-31-2023 End: 09-30-2023 Hemoglobin A1c in Blood HGB A1C Lab Routine Type 2 diabetes mellitus with diabetic neuropathy, without long-term current use of insulin (HCC) Expected: 07/31/2023 (Approximate), Expires: 09/30/2023 [facility] Work Phone: Comment on above: Expected: 07/31/2023 (Approximate), Expi res: 09/30/2023 Start: 07-31-2023 End: 09-30-2023 Lipid 1996 panel - Serum or Plasma LIPID PANEL BASIC Lab Routine Coronary artery disease involving [place] coronary artery of [place] heart without angina pectoris Mixed hyperlipidemia Expected: 07/31/2023 (Approximate), Expires: 09/30/2023 [facility] Work Phone: Comment on above: Expected: 07/31/2023 (Approximate), Expi res: 09/30/2023 Start: 07-31-2023 End: 09-30-2023 Thyrotropin [Units/volume] in Serum or Plasma TSH BLD Lab Routine Acquired hypothyroidism Expected: 07/31/2023 (Approximate), Expires: 09/30/2023 [facility] Work Phone: Comment on above: Expected: 07/31/2023 (Approximate), Expi res: 09/30/2023 Start: 07-29-2023 Hemoglobin A1c/Hemoglobin.total in Blood HbA1C [facility] Start: 05-27-2023 Influenza vaccination [facility] Comment on above: Postponed from 12/18/2022 (Declined at t his time) Start: 04-24-2023 ANNUAL PCP TEAM CHRONIC DISEASE VISIT ANNUAL PCP TEAM CHRONIC DISEASE VISIT [facility] Start: 04-24-2023 BP CONTROLLED (<130/80) BP CONTROLLED (<130/80) [facility] Start: 04-19-2023 Advance Directive Discussion Advance Directive Discussion [facility] Start: 02-12-2023 ANNUAL PCP TEAM CHRONIC DISEASE VISIT ANNUAL PCP TEAM CHRONIC DISEASE VISIT [facility] Start: 02-12-2023 BP CONTROLLED (<130/80) BP CONTROLLED (<130/80) [facility] Start: 02-01-2023 Urine microalbumin profile [facility] Start: 01-30-2023 Hemoglobin A1c/Hemoglobin.total in Blood HBA1C [facility] Start: 01-29-2023 ANNUAL PCP TEAM CHRONIC DISEASE VISIT ANNUAL PCP TEAM CHRONIC DISEASE VISIT [facility] Start: 01-16-2023 Hepatitis B surface antibody level LDL CHOLESTEROL [facility] Start: 12-18-2022 Influenza vaccination INFLUENZA (Season Ended) [facility] Start: 08-26-2022 BP CONTROLLED (<130/80) BP CONTROLLED (<130/80) [facility] Start: 08-19-2022 End: 09-18-2022 Ct thorax w/o contrast material CT CHEST WO IVCON Radiology Routine Lung nodules Expected: 08/19/2022, Expires: 09/18/2022 [facility] Work Phone: Comment on above: Expected: 08/19/2022, Expires: Start: 07-30-2022 End: 09-29-2022 ALBUMIN/CREAT RATIO RND UR ALBUMIN/CREAT RATIO RND UR Lab Routine Type 2 diabetes mellitus with diabetic neuropathy, without long-term current use of insulin (HCC) Expected: 07/30/2022 (Approximate), Expires: 09/29/2022 [facility] Work Phone: Comment on above: Expected: 07/30/2022 (Approximate), Expi res: 09/29/2022 Start: 07-30-2022 End: 09-29-2022 Comprehensive metabolic 2000 panel - Serum or Plasma COMP METABOLIC PANEL Lab Routine Type 2 diabetes mellitus with diabetic neuropathy, without long-term current use of insulin (HCC) Coronary artery disease involving [place] coronary artery of [place] heart without angina pectoris Mixed hyperlipidemia Expected: 07/30/2022 (Approximate), Expires: 09/29/2022 [facility] Work Phone: Comment on above: Expected: 07/30/2022 (Approximate), Expi res: 09/29/2022 Start: 07-30-2022 End: 09-29-2022 Hemoglobin A1c in Blood HGB A1C Lab Routine Type 2 diabetes mellitus with diabetic neuropathy, without long-term current use of insulin (HCC) Expected: 07/30/2022 (Approximate), Expires: 09/29/2022 [facility] Work Phone: Comment on above: Expected: 07/30/2022 (Approximate), Expi res: 09/29/2022 Start: 07-30-2022 End: 09-29-2022 Lipid 1996 panel - Serum or Plasma LIPID PANEL BASIC Lab Routine Coronary artery disease involving [place] coronary artery of [place] heart without angina pectoris Mixed hyperlipidemia Expected: 07/30/2022 (Approximate), Expires: 09/29/2022 [facility] Work Phone: Comment on above: Expected: 07/30/2022 (Approximate), Expi res: 09/29/2022 Start: 07-30-2022 End: 09-29-2022 Thyrotropin [Units/volume] in Serum or Plasma TSH BLD Lab Routine Acquired hypothyroidism Expected: 07/30/2022 (Approximate), Expires: 09/29/2022 [facility] Work Phone: Comment on above: Expected: 07/30/2022 (Approximate), Expi res: 09/29/2022 Start: 07-24-2022 ANNUAL PCP TEAM CHRONIC DISEASE VISIT ANNUAL PCP TEAM CHRONIC DISEASE VISIT [facility] Start: 07-16-2022 Hemoglobin A1c/Hemoglobin.total in Blood HBA1C [facility] Start: 07-01-2022 Colonoscopy w/biopsy single/multiple COLONOSCOPY AND BIOPSY [facility] Start: 07-01-2022 Colsc flx w/rmvl of tumor polyp lesion snare tq COLONOSCOPY W/LESION REMOVAL [facility] Start: 07-01-2022 Egd transoral biopsy single/multiple EGD BIOPSY SINGLE/MULTIPLE [facility] Start: 07-01-2022 Patient discharge [facility] Start: 06-30-2022 BP CONTROLLED (<130/80) BP CONTROLLED (<130/80) [facility] Start: 04-29-2022 Procedure [facility] Start: 04-25-2022 ANNUAL PCP TEAM CHRONIC DISEASE VISIT ANNUAL PCP TEAM CHRONIC DISEASE VISIT [facility] Start: 04-21-2022 Hepatitis B screening URINE ALBUMIN:CREATININE RATIO [facility] Start: 04-21-2022 Hepatitis B surface antibody level LDL CHOLESTEROL [facility] Start: 04-19-2022 ADVANCE DIRECTIVE DISCUSSION ADVANCE DIRECTIVE DISCUSSION [facility] Start: 04-19-2022 DEPRESSION ASSESSMENT DEPRESSION ASSESSMENT [facility] Start: 02-06-2022 Blood chemistry [facility] Work Phone: Start: 02-05-2022 Blood chemistry [facility] Work Phone: Start: 02-04-2022 Patient discharge [facility] Start: 02-04-2022 Electrocardiographic procedure [facility] Work Phone: Start: 02-03-2022 Care regimes management [facility] Start: 02-03-2022 Notification of physician [facility] Start: 02-03-2022 End: 02-03-2022 [facility] Start: 02-03-2022 Referral to stereoptician [facility] Start: 02-03-2022 Care planning and problem solving actions [facility] Start: 02-03-2022 Oxygen therapy [facility] Start: 02-03-2022 Blood chemistry [facility] Work Phone: Start: 02-03-2022 Thyroid stimulating hormone measurement [facility] Work Phone: Start: 02-03-2022 Following clinical pathway protocol [facility] Start: 02-03-2022 Assessment of risk of venous thromboembolism [facility] Start: 02-03-2022 Consultation [facility] Start: 02-03-2022 Continuous pulse oximetry [facility] Start: 02-03-2022 Elevation of head of bed [facility] Start: 02-03-2022 Insertion of catheter into peripheral vein [facility] Start: 02-03-2022 Maintenance therapy [facility] Start: 02-03-2022 Measuring intake and output [facility] Start: 02-03-2022 Providing care according to standard [facility] Start: 02-03-2022 Troponin I measurement [facility] Work Phone: Start: 02-03-2022 Vital signs measurements [facility] Start: 02-03-2022 [facility] Start: 02-03-2022 Electrocardiographic procedure [facility] Work Phone: Start: 02-03-2022 Verification routine [facility] Work Phone: Start: 02-03-2022 Admission procedure [facility] Start: 02-03-2022 Continuous positive airway pressure ventilation treatment [facility] Start: 02-03-2022 Patient referral to dietitian [facility] Start: 02-02-2022 Continuous pulse oximetry [facility] Work Phone: Start: 02-02-2022 Dual pressure spontaneous ventilation support [facility] Work Phone: Start: 01-23-2022 End: 03-25-2022 Comprehensive metabolic 2000 panel - Serum or Plasma COMP METABOLIC PANEL Lab Routine Type 2 diabetes mellitus without complication, without long-term current use of insulin (HCC) Mixed hyperlipidemia Expected: 01/23/2022 (Approximate), Expires: 03/25/2022 [facility] Work Phone: Comment on above: Expected: 01/23/2022 (Approximate), Expi res: 03/25/2022 Start: 01-23-2022 End: 03-25-2022 Hemoglobin A1c/Hemoglobin.total in Blood HGB A1C Lab Routine Type 2 diabetes mellitus without complication, without long-term current use of insulin (HCC) Expected: 01/23/2022 (Approximate), Expires: 03/25/2022 [facility] Work Phone: Comment on above: Expected: 01/23/2022 (Approximate), Expi res: 03/25/2022 Start: 01-23-2022 End: 03-25-2022 LIPID PANEL BASIC LIPID PANEL BASIC Lab Routine Type 2 diabetes mellitus without complication, without long-term current use of insulin (HCC) Mixed hyperlipidemia Expected: 01/23/2022 (Approximate), Expires: 03/25/2022 [facility] Work Phone: Comment on above: Expected: 01/23/2022 (Approximate), Expi res: 03/25/2022 Start: 01-23-2022 End: 03-25-2022 Thyrotropin [Units/volume] in Serum or Plasma TSH BLD Lab Routine Acquired hypothyroidism Expected: 01/23/2022, Expires: 03/25/2022 [facility] Work Phone: Comment on above: Expected: 01/23/2022, Expires: Start: 01-17-2022 Hemoglobin A1c/Hemoglobin.total in Blood HBA1C [facility] Start: 01-10-2022 COVID-19 VACCINE (#1) COVID-19 VACCINE (#1) [facility] Comment on above: Postponed from 1954 (Declined at t his time) Start: 01-10-2022 COVID-19 VACCINE (1) COVID-19 VACCINE (1) [facility] Comment on above: Postponed from 1955 (Declined at t his time) Start: 12-19-2021 FECAL OCCULT BLOOD FECAL OCCULT BLOOD [facility] Start: 12-19-2021 Screening for malignant neoplasm of colon Fecal Occult Blood [facility] Start: 12-18-2021 Influenza vaccination [facility] Start: 10-19-2021 Hemoglobin A1c/Hemoglobin.total in Blood HBA1C [facility] Start: 10-16-2021 Influenza vaccination INFLUENZA (#1) [facility] Comment on above: Postponed from 12/18/2020 (Declined at t his time) Start: 09-18-2021 Glaucoma screening Dilated Retinal Exam [facility] Start: 09-18-2021 Hepatitis C antibody, confirmatory test DILATED RETINAL EXAM [facility] Start: 08-22-2021 Adult depression screening assessment DEPRESSION SCREENING [facility] Start: 04-19-2021 ADVANCE DIRECTIVE DISCUSSION ADVANCE DIRECTIVE DISCUSSION [facility] Start: 04-24-2020 3 comp foot exam completed DIABETIC FOOT EXAM [facility] Start: 04-24-2020 Diabetic foot examination Diabetic Foot Exam [facility] Start: 10-08-2018 Hepatitis C antibody, confirmatory test DILATED RETINAL EXAM [facility] Start: 03-19-2014 Medicare Annual Wellness Visit Medicare Annual Wellness Visit [facility] Start: 2009 Hepatitis B Vaccine (1 of 3 - Risk 3-dose series) Hepatitis B Vaccine (1 of 3 - Risk 3-dose series) [facility] Start: 2009 RSV Vaccine (1 - 1-dose 60+ series) RSV Vaccine (1 - 1-dose 60+ series) [facility] Start: 2009 RSV Vaccine (1 - Risk 60-74 years 1-dose series) RSV Vaccine (1 - Risk 60-74 years 1-dose series) [facility] Start: 1999 SHINGRIX VACCINE (1 of 2) SHINGRIX VACCINE (1 of 2) [facility] Start: 1994 COLOGUARD (FIT-DNA) COLOGUARD (FIT-DNA) [facility] Start: [address] COLONOGRAPHY [facility] Start: 1994 Screening for malignant neoplasm of colon [facility] Start: 1994 SIGMOIDOSCOPY SIGMOIDOSCOPY [facility] Start: 1967 BP CONTROLLED (<130/80) BP CONTROLLED (<130/80) [facility] Start: 1949 COVID-19 VACCINE (#1) COVID-19 VACCINE (#1) [facility] Start: 1949 ABDOMINAL AORTIC ANEURYSM SCREENING ABDOMINAL AORTIC ANEURYSM SCREENING [facility] Start: 1950 Abdominal aortic aneurysm screening Abdominal Aortic Aneurysm Screening [facility] Ambulatory ECG [facility] Anion gap measurement [facility] Work Phone: BUN/Creatinine ratio [facility] Work Phone: Calcium [Mass/volume ] in Serum or Plasma [facility] Work Phone: Carbon dioxide, tota l [Moles/volume] in Serum or Plasma [facility] Work Phone: CBC W Auto Different ial panel - Blood [facility] Chloride [Moles/volu me] in Serum or Plasma [facility] Work Phone: Comprehensive metabo lic 2000 panel - Serum or Plasma [facility] Creatinine [Moles/vo lume] in Serum or Plasma [facility] Work Phone: Glucose [Mass/volume ] in Serum or Plasma [facility] Work Phone: Hematocrit [Volume F raction] of Blood [facility] Work Phone: Hemoglobin [Mass/vol ume] in Blood [facility] Work Phone: Leukocytes [#/volume ] in Blood [facility] Work Phone: Mean corpuscular hem oglobin concentration determination [facility] Work Phone: Mean corpuscular hem oglobin determination [facility] Work Phone: Measurement of renal function [facility] Work Phone: Measurement of respi ratory function [facility] Natriuretic peptide. B prohormone N-Terminal [Mass/volume] in Serum or Plasma [facility] Neutrophil count [facility] Work Phone: Neutrophil percent differential count [facility] Work Phone: Patient referral [facility] Work Phone: Platelets [#/volume] in Blood [facility] Work Phone: Potassium [Moles/vol ume] in Serum or Plasma [facility] Work Phone: Red blood cell count [facility] Work Phone: Red cell distributio n width determination [facility] Work Phone: Sodium [Moles/volume ] in Serum or Plasma [facility] Work Phone: SURGICAL PATHOLOGY [facility] Work Phone: Comment on above: Release Upon Ordering for 1 Occurrences starting 07/14/2021, 1 completed T4 free measurement [facility] Thyroid stimulating hormone measurement [facility] Work Phone: Thyroid stimulating hormone measurement [facility] Triiodothyronine, fr ee measurement [facility] Troponin I measurement [facility] Work Phone: Urea nitrogen [Mass/ volume] in Serum or Plasma [facility] Work Phone: XR Chest PA and Lateral [facility] Immunizations Immunization Date Immunization Notes Care Provider [facility] 01-18-2020 influenza, high-dose , quadrivalent vaccine (FLUZONE HIGH DOSE QUADRIVALENT) Eze Grijalva MD Work Phone: [facility] 01-18-2020 influenza virus vacc ine, unspecified formulation Allan Rosario MD Work Phone: [facility] 01-25-2019 influenza, injectabl e, quadrivalent, preservative free Dr. Allan Rosario Work Phone: [facility] 01-25-2019 influenza, seasonal, injectable Dr. Allan Rosario Work Phone: [facility] 01-23-2019 pneumococcal conjuga te vaccine, 13 valent Eze Grijalva MD Work Phone: [facility] 01-20-2018 influenza, high dose seasonal, preservative-free Eze Grijalva MD Work Phone: [facility] 10-18-2017 pneumococcal polysaccharide vaccine, 23 valent Eze Grijalva MD Work Phone: [facility] 03-02-2017 influenza, high dose seasonal, preservative-free Eze Grijalva MD Work Phone: [facility] 03-25-2016 influenza, high dose seasonal, preservative-free Eze Grijalva MD Work Phone: [facility] 02-21-2016 influenza, high dose seasonal, preservative-free Eze Grijalva MD Work Phone: [facility] 02-21-2016 pneumococcal conjuga te vaccine, 13 valent Eze Grijalva MD Work Phone: [facility] 03-28-2015 influenza, high dose seasonal, preservative-free Eze Grijalva MD Work Phone: [facility] 02-01-2014 influenza, injectabl e, quadrivalent, contains preservative Eze Grijalva MD Work Phone: [facility] 02-01-2013 diphtheria, tetanus toxoids and acellular pertussis vaccine Eze Grijalva MD Work Phone: [facility] 04-19-2012 influenza, injectabl e, quadrivalent, contains preservative Eze Grijalva MD Work Phone: [facility] 03-29-2012 influenza, injectabl e, quadrivalent, contains preservative Eze Grijalva MD Work Phone: [facility] 12-18-2010 influenza, injectabl e, quadrivalent, contains preservative Eze Grijalva MD Work Phone: [facility] 03-25-2010 influenza, injectabl e, quadrivalent, contains preservative Eze Grijalva MD Work Phone: [facility] 12-31-2008 influenza, injectabl e, quadrivalent, contains preservative Eze Grijalva MD Work Phone: [facility] 12-31-2008 pneumococcal polysaccharide vaccine, 23 valent Eze Grijalva MD Work Phone: [facility] Payers Date Payer Category Payer Self-pay [id number] 2019 Private Health Insurance MMO MED ICARE SUPPLEMENT [id number] 2019 Unknown MMO MMO MEDICARE SUPPLEMENT [id number] 2019-Present [phone] [address] [place] [address] Indemnity [id number] 2019 Unknown MMO MMO MEDICARE SUPPLEMENT [id number] 2019-Present [phone] [address] [place] [address] Indemnity [id number] 2019 Unknown [id number] 2014 Medicare MEDICARE MEDICAR E A AND B [id number] 2014-Present [phone] [address] [address] [place] [address] Medicare [id number] 2014 Medicare [id number] 2014 Unknown [id number] 2014 Medicare [id number] Unknown [id number] Unknown [id number] Unknown [id number] Unknown [id number] Unknown [id number] Unknown [id number] Unknown [id number] Unknown [id number] Unknown [id number] Unknown [id number] Social History Date Type Detail Facility Start: 03-18-2021 End: 04-15-2023 Tobacco smoking status [facility] Unknown if ever smoked [facility] Start: 03-01-2019 Non-smoker [facility] Start: 1950 Sex Assigned At Male [facility] Start: 06-29-2016 End: 02-01-2024 Tobacco smoking status NHIS Ex-smoker [facility] Work Phone: End: 06-29-1966 History of tobacco use Current smoker [facility] Work Phone: Start: 06-29-2016 End: 02-01-2024 Tobacco use and exposure Smokeless tobacco non-user [facility] Work Phone: Start: 07-14-2021 End: 09-12-2024 Alcohol intake Current drinker of alcohol (finding) [facility] Start: 04-21-2019 History SDOH Alcohol Frequency 5 [facility] Start: 04-21-2019 End: 04-21-2020 History SDOH Alcohol Std Drinks 1 [facility] Start: 02-25-2021 History SDOH Alcohol Comment rare [facility] Start: 04-21-2019 End: 06-04-2019 History SDOH Social Connections Phone 3 [facility] Start: 04-21-2019 History SDOH Social Connections Get Together 98 [facility] Start: 06-04-2019 End: 09-08-2019 History SDOH Stress 4 [facility] Start: 09-08-2019 End: 04-21-2020 History SDOH Transport Med 2 [facility] Start: 02-25-2021 End: 01-29-2022 Tobacco Comment when he was 15 years [facility] Start: 07-23-2020 End: 01-29-2022 Exposure to SARS-CoV-2 (event) Not sure [facility] End: 06-29-1966 History of tobacco use Cigarette Smoker [facility] Start: 06-04-2019 End: 02-29-2024 History of Social function [facility] Start: 06-04-2019 End: 02-29-2024 Social connection and isolation panel [facility] Start: 03-20-2012 How often do you get together with friends or relatives? Patient refused [facility] Do you belong to any clubs or organizations such as synagogue groups, unions, fraternal or athletic groups, or school groups? Yes [facility] Are you now , , , , never or living with a partner? [facility] How often to you hav e a drink containing alcohol? 4 or more times a week [facility] How many standard dr inks containing alcohol do you have on a typical day? 1 or 2 [facility] How often do you hav e 6 or more drinks on 1 occasion? Never [facility] How hard is it for y ou to pay for the very basics like food, housing, medical care, and heating Not very hard [facility] Work Phone: Do you feel stress - tense, restless, nervous, or anxious, or unable to sleep at night because your mind is troubled all the time - these days [OSQ] Rather much [facility] (I/We) worried wheth er (my/our) food would run out before (I/we) got money to buy more. Never true [facility] Work Phone: In the past 12 month s, was there a time when you were not able to pay the mortgage or rent on time? No [facility] Start: 07-26-2018 Gender identity Identifies as male gender (finding) [facility] Start: 07-26-2018 Sexual orientation Heterosexual (finding) [facility] Start: 06-29-2016 Alcohol Comment 2-4 drinks per day [facility] Start: 04-15-2023 Tobacco smoking status NHIS Never smoked tobacco (finding) [facility] Start: 07-14-2024 Sex Male (finding) [facility] Goals Date Patient Goal Desired Activity /State Functional Status Date Assessment Result Facility 02-04-2022 Functional status Ambulates [facility] Work Phone: Mental Status Date Assessment Result Facility 07-01-2022 Cognitive function Voice/Name [facility] Work Phone: 02-04-2022 Cognitive function Voice/Name [facility] Work Phone: Clinical Notes 08-22-2020 to 12-27-2024 Telephone Encounter - Kamari Melendez APRN.CNP - 12/27/2024 11:21 AM EDTTelephone Encounter - Kamari Melendez APRN.CNP - 12/27/2024 11:21 AM EDT Note Date & Type Note Facility 12-27-2024 Telephone encounter Note The following approved medication requests have been transmitted electronically. Requested Prescriptions Pending Prescriptions Disp Refills gabapentin (NEURONTIN) 300 mg capsule 180 capsule 1 Sig: Take 1 capsule by mouth two times a day for 180 days. Kamari Melendez APRN.CNP [facility] 12-27-2024 Miscellaneous Notes The following approved medication requests have been transmitted electronically. Requested Prescriptions Pending Prescriptions Disp Refills gabapentin (NEURONTIN) 300 mg capsule 180 capsule 1 Sig: Take 1 capsule by mouth two times a day for 180 days. aKmari Melendez APRN.CNP The patient has been identified by name and date of : Yes Caregiver verified no other encounters exist for this prescription request: Yes Caregiver confirmed with patient/requestor that no other refills are due, in the near future, with this provider at this time: No The last office visit in the department: 08/29/2024 Does the patient have a future office visit with this provider/department: Yes 02/13/2025 Requested Prescriptions Pending Prescriptions Disp Refills gabapentin (NEURONTIN) 300 mg capsule 180 capsule 1 Sig: Take 1 capsule by mouth two times a day for 180 days. Tory Banks MA December 27, 2024 9:37 AM documented in this encounter [facility] 12-27-2024 Telephone encounter Note The patient has been identified by name and date of : Yes Caregiver verified no other encounters exist for this prescription request: Yes Caregiver confirmed with patient/requestor that no other refills are due, in the near future, with this provider at this time: No The last office visit in the department: 08/29/2024 Does the patient have a future office visit with this provider/department: Yes 02/13/2025 Requested Prescriptions Pending Prescriptions Disp Refills gabapentin (NEURONTIN) 300 mg capsule 180 capsule 1 Sig: Take 1 capsule by mouth two times a day for 180 days. Tory Banks MA December 27, 2024 9:37 AM [facility] 12-14-2024 Radiology Diagnostic study note [facility] Imaging Services [address] [place] [id number] Chest PA and Lateral MR#: [id number] Acct: [id number] Name: SALOME SHETH Trino Rep #: [id number] : 1950 M 74 From: Jose Francisco Morales MD PCP: Dr. Allan Rosario MD Status: RE G CLI Study:Chest PA and Lateral Date of Exam: 12/14/24 Exam# [id number] Ordering Dr: Lois Hines NP FAMILY DAY CARE PROVIDER-C PROCEDURE: CHEST PA AND LATERAL 12/14/2024 REASON FOR EXAM: PIKE, COUGH TECHNIQUE: CHEST PA AND LATERAL COMPARISON: PA and lateral chest of 02/04/2022. RAD/Chest PA and Lateral IMPRESSION: Upper abdominal surgical clips are again seen. Sternotomy wires and mediastinal surgical clips are again noted. Prior coronaryartery stenting is seen. Partially visualized left shoulder prosthesis appears without apparent complication. No evidence of pulmonary edema. Lungs appear clear of acute disease. No pleural effusion or pneumothorax is evident. The cardiomediastinal silhouette is remarkable for a calcified and tortuous aorta. No evidence of cardiomegaly. Uafj-za-zyrlsufq degenerative changes of the visualized spine noted, along with thoracic DISH. No evidence of acute cardiopulmonary disease. Reading Location: [place] [address] CC: FAMILY DAY CARE PROVIDER-C Lois Hines; Dr. 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 Author Type: Physician Wire Sawyer Type: Progress Notes Filed: 09/12/2024 11:17 Note Text: [facility] Subjective Salome Sheth is a 74 year old male. Patient presents with: Rash: Rash on left wrist x 1 week HPI Rash: - Rash on left wrist began last . - Initially presented as four clear, blister-like lesions. - New lesions have since appeared, including one above a vein. - Painful to touch, but not otherwise. - Has tried various topical treatments, including drawing salve, pink salve, and cortisone cream, with no improvement. - Denies known allergies to antibiotics; allergic to morphine. - Spends time outdoors, frequently cutting grass and around pine trees. - Denies presence of mice in the house; initially thought the rash might be a mouse bite or bee sting. PAST MEDICAL HISTORY Diagnosis Date AAA (abdominal aortic aneurysm) conflicting results Anxiety Bladder cancer (HCC) [address] Foreman BPH (benign prostatic hyperplasia) BPPV (benign paroxysmal positional vertigo) Carpal tunnel syndrome s/p release Central sleep apnea Coronary artery disease s/p CABG. Dr. Varela Diabetes mellitus, type II ([facility]) Diabetic retinopathy (HCC) OU Diverticulosis Fibromyalgia Hard of hearing Hypertension Hypothyroidism Insomnia Left elbow fracture Lipoma of anterior chest wall s/p resection Myocardial infarction (HCC) x3 Obesity (BMI 30-39.9) PRAKASH (obstructive sleep apnea) on CPAP Pulmonary nodules conflicting studies Restless leg syndrome Rheumatoid arthritis Trigger finger PAST SURGICAL HISTORY Procedure Laterality Date ARTHRP KNE CONDYLEANDPLATU MEDIALANDLAT COMPARTMENTS Bilateral x4 each CABG (3) VEIN GRAFTS AND ARTERIAL GRAFT(S) 2004 CARPAL TUNNEL Bilateral CHOLECYSTECTOMY open COLONOSCOPY 07/14/2021 No repeat due to age. COLONOSCOPY N/A 07/01/2022 EGD W/O [facility] SPEC VARICIES INJ 07/14/2021 EGD W/O [facility] SPEC VARICIES INJ N/A 07/01/2022 PAST SURGICAL HISTORY OF Left Reverse shoulder replacement PAST SURGICAL HISTORY OF Bilateral rotator cuff tear repair PAST SURGICAL HISTORY OF Left elbow fracture repair PAST SURGICAL HISTORY OF Right elbow-bone chip repair PAST SURGICAL HISTORY OF Left trigger finger release PAST SURGICAL HISTORY OF Left tumor resection from rib PAST SURGICAL HISTORY OF prostate surgery PAST SURGICAL HISTORY OF 03/08/2019 TURP, diagnostic cysto ALLERGIES Hctz [Hydrochlorothiazide], Liothyronine, Morphine, Sdafzsn-Hax-Bsx Reductase Inhibitors, Sulfa (Sulfonamide Antibiotics), and Synthroid [Levothyroxine] MEDICATIONS doxycycline monohydrate 100 mg tablet Take 1 tablet by mouth two times a day for 5 days. mupirocin (BACTROBAN) 2 % ointment Apply to affected area three times a day for 7 days. amLODIPine (NORVASC) 10 mg tablet Take 1 tablet by mouth once daily. amiodarone (PACERONE) 200 mg tablet Taking 0.5 tab at bedtime ARMOUR THYROID 60 mg tablet Take 2 pills five days a week and 1 pill two days a week. furosemide (LASIX) 40 mg tablet Take 1 tablet by mouth once daily. gabapentin (NEURONTIN) 300 mg capsule Take 1 capsule by mouth two times a day for 180 days. glipiZIDE (GLUCOTROL) 10 mg tablet Take 1 tablet (10 mg) by mouth once daily. isosorbide mononitrate ER (IMDUR) 30 mg 24 hr tablet Take 1 tablet by mouth two times a day. losartan (COZAAR) 100 mg tablet Take 1.5 tablets by mouth once daily. metFORMIN (GLUCOPHAGE) 1,000 mg tablet Take 1 tablet by mouth daily with dinner. pantoprazole DR (PROTONIX) 40 mg tablet Take 1 tablet by mouth daily before breakfast. Take on empty stomach, 1/2 hr before meal. CPAP Initiate CPAP @ 12 cm of water with humidification. Mask (per patient preference) optional chin strap (if indicated) , filters, tubing, humidifier and lifetime supplies. polyethylene glycol 3350 (MIRALAX) 17 gram/dose powder Take 289 g by mouth once daily. Dissolve dose in 4 - 8 ounces of liquid and take as directed. acetaminophen (TYLENOL) 325 mg tablet 650 mg every 4 hours as needed. aspirin, enteric coated (ASPIRIN, ENTERIC COATED) 81 mg EC tablet Take 81 mg by mouth once daily. cholecalciferol (VITAMIN D-3) 5,000 unit tab Take 5,000 Units by mouth once daily. cyanocobalamin, vitamin B-12, (VITAMIN B-12 ORAL) Take by mouth once daily. 2000 mg FAMILY HISTORY Problem Relation Age of Onset Psychiatry Mother suicide Psychiatry Father suicide Heart Attack Sister Diabetes Brother type I other (celiac disease) Brother Alcohol/Drug Brother Blood Clots Brother Alzheimer's Disease Brother Heart disease Brother other (Pulmonday disease) Brother No Known Problems Brother No Known Problems Maternal Grandmother No Known Problems Maternal Grandfather No Known Problems Paternal Grandmother No Known Problems Paternal Grandfather Social History Tobacco U (more content not included)...[facility]05-27-2025 History of Present illness Narrative* Aberegg, Krislyn P, PA - 09/12/2024 11:11 AM EDT [facility] Subjective Salome Sheth is a 74 year old male. Patient presents with: Rash: Rash on left wrist x 1 week HPI Rash: - Rash on left wrist began last . - Initially presented as four clear, blister-like lesions. - New lesions have since appeared, including one above a vein. - Painful to touch, but not otherwise. - Has tried various topical treatments, including drawing salve, pink salve, and cortisone cream, with no improvement. - Denies known allergies to antibiotics; allergic to morphine. - Spends time outdoors, frequently cutting grass and around pine trees. - Denies presence of mice in the house; initially thought the rash might be a mouse bite or bee sting. PAST MEDICAL HISTORY Diagnosis Date AAA (abdominal aortic aneurysm) conflicting results Anxiety Bladder cancer (HCC) [address] Foreman BPH (benign prostatic hyperplasia) BPPV (benign paroxysmal positional vertigo) Carpal tunnel syndrome s/p release Central sleep apnea Coronary artery disease s/p CABG. Dr. Varela Diabetes mellitus, type II (HCC) Diabetic retinopathy (HCC) OU Diverticulosis Fibromyalgia Hard of hearing Hypertension Hypothyroidism Insomnia Left elbow fracture Lipoma of anterior chest wall s/p resection Myocardial infarction (HCC) x3 Obesity (BMI 30-39.9) PRAKASH (obstructive sleep apnea) on CPAP Pulmonary nodules conflicting studies Restless leg syndrome Rheumatoid arthritis Trigger finger PAST SURGICAL HISTORY Procedure Laterality Date ARTHRP KNE CONDYLE&PLATU MEDIAL&LAT COMPARTMENTS Bilateral x4 each CABG (3) VEIN GRAFTS & ARTERIAL GRAFT(S) 2004 CARPAL TUNNEL Bilateral CHOLECYSTECTOMY open COLONOSCOPY 07/14/2021 No repeat due to age. COLONOSCOPY N/A 07/01/2022 EGD W/O BRS SPEC VARICIES INJ 07/14/2021 EGD W/O BRS SPEC VARICIES INJ N/A 07/01/2022 PAST SURGICAL HISTORY OF Left Reverse shoulder replacement PAST SURGICAL HISTORY OF Bilateral rotator cuff tear repair PAST SURGICAL HISTORY OF Left elbow fracture repair PAST SURGICAL HISTORY OF Right elbow-bone chip repair PAST SURGICAL HISTORY OF Left trigger finger release PAST SURGICAL HISTORY OF Left tumor resection from rib PAST SURGICAL HISTORY OF prostate surgery PAST SURGICAL HISTORY OF 03/08/2019 TURP, diagnostic cysto ALLERGIES Hctz [Hydrochlorothiazide], Liothyronine, Morphine, Sxidyyy-Cmw-Vdy Reductase Inhibitors,Sulfa (Sulfonamide Antibiotics), and Synthroid [Levothyroxine] MEDICATIONS doxycycline monohydrate 100 mg tablet Take 1 tablet by mouth two times a day for 5 days. mupirocin (BACTROBAN) 2 % ointment Apply to affected area three times a day for 7 days. amLODIPine (NORVASC) 10 mg tablet Take 1 tablet by mouth once daily. amiodarone (PACERONE) 200 mg tablet Taking 0.5 tab at bedtime ARMOUR THYROID 60 mg tablet Take 2 pills five days a week and 1 pill two days a week. furosemide (LASIX) 40 mg tablet Take 1 tablet by mouth once daily. gabapentin (NEURONTIN) 300 mg capsule Take 1 capsule by mouth two times a day for 180 days. glipiZIDE (GLUCOTROL) 10 mg tablet Take 1 tablet (10 mg) by mouth once daily. isosorbide mononitrate ER (IMDUR) 30 mg 24 hr tablet Take 1 tablet by mouth two times a day. losartan (COZAAR) 100 mg tablet Take 1.5 tablets by mouth once daily. metFORMIN (GLUCOPHAGE) 1,000 mg tablet Take 1 tablet by mouth daily with dinner. pantoprazole DR (PROTONIX) 40 mg tablet Take 1 tablet by mouth daily before breakfast. Take on empty stomach, 1/2 hr before meal. CPAP Initiate CPAP @ 12 cm of water with humidification. Mask (per patient preference) optional chin strap (if indicated) , filters, tubing, humidifier and lifetime supplies. polyethylene glycol 3350 (MIRALAX) 17 gram/dose powder Take 289 g by mouth once daily. Dissolve dose in 4 - 8 ounces of liquid and take as directed. acetaminophen (TYLENOL) 325 mg tablet 650 mg every 4 hours as needed. aspirin, enteric coated (ASPIRIN, ENTERIC COATED) 81 mg EC tablet Take 81 mg by mouth once daily. cholecalciferol (VITAMIN D-3) 5,000 unit tab Take 5,000 Units by mouth once daily. cyanocobalamin, vitamin B-12, (VITAMIN B-12 ORAL) Take by mouth once daily. 2000 mg FAMILY HISTORY Problem Relation Age of Onset Psychiatry Mother suicide Psychiatry Father suicide Heart Attack Sister Diabetes Brother type I other (celiac disease) Brother Alcohol/Drug Brother Blood Clots Brother Alzheimer's Disease Brother Heart disease Brother other (Pulmonday disease) Brother No Known Problems Brother No Known Problems Maternal Grandmother No Known Problems Maternal Grandfather No Known Problems Paternal Grandmother No Known Problems Paternal Grandfather Social History Tobacco Use Smoking status: Former Current packs/day: 0.00 Types: Cigarettes Quit date: 06/29/1966 Years since quittin.2 Smokeless tobacco: Never Tobacco comments: when he was 15 years old Vaping Use Vaping status: Never Used Substance Use Topics Alcohol use: Yes Comment: rare Drug use: No Review of Systems Skin: (+) painful rash left wrist, (+) blisters, (-) itching Constitutional: No fever Objective BP 128/64 Pulse 88 Temp 37.1 C (98.7 F) Resp 16 Wt 105.7 kg (233 lb 0.4 oz) SpO2 96% BMI 35.43 kg/m Nursing note reviewed. Vitals reviewed Physical Exam General: No acute distress. Skin: Multiple erythematous lesions ventral L wrist, some with purplish central discoloration; somelesions appear vesicular, some with clear fluid resembling blisters; surrounding erythema present. no lymphatic streaking. Mild tenderness. No drainage or fluctuance. No abscess. No rash anywhere else {1. Rash (R21) - Rash on left wrist with initial presentation of clear vesicles, now with erythema and tenderness upon palpation. - Differential diagnosis includes herpes zoster and skin infection. - Obtained viral swab for herpes zoster; results expected within 1-2 days. out of window for antiviral if herpes positive. - Initiated topical antibiotic cream and oral antibiotic therapy. - Prescriptions sent to [facility] pharmacy. - Advised patient to monitor for changes and follow up with primary care or dermatology if symptomsworsen or improve with treatment. Recording using Clever Machine software for draft documentation of the visit was discussed with the patient/authorized medical office representative; all questions welcomed and answered. Patient/authorized medical office representative agreed to proceed Diagnosis and treatment plan were discussed and questions were answered to the patient's satisfaction. Pt acknowledged understanding of concepts and follow up plan. Specific signs and symptoms that would indicate the need for higher level of care were discussed in detail warranting prompt ER evaluation. History and Record Review External record(s) reviewed: prior outpatient record. Differential Diagnoses - Rash left wrist/skin infection is more likely for the following reason(s): suggested by H&P Disposition The patient was discharged. [facility] History of Present illness Narrative* Allan Rosario MD - 08/29/2024 8:00 AM EDT Chief Complaint Patient presents with: F/U 6 Month HPI Aza Trino Sheth is a 74 year old male who presents here today for 6 month follow up. here for visit with pt. [facility]. No [facility], Gi issues, uses Miralax and Benefiber daily. Stomach has improved, no longer drinking. Follows with Urologist Dr. Foreman annually. Denies any urinary issues. Denies nocturia often. GERD: Controlled on Protonix 40 mg daily. CKD: monitored with labs. Stable. Thyroid: Taking Pork Thyroid 60-65 mg 2 pills once a day. Denies any missed dosages. PRAKASH: Is on a CPAP at night, which is working well for him. [facility] DM: Does not check BS at home. Denies any low blood sugars. Has neuropathy in feet which is controlled on Gabapentin 300 mg 2 pills at bedtime. Has upcoming appt with [facility]. Getting eye exams done through [facility]. Is taking Metformin 1,000 mg daily and Glucotrol 10 mg daily. Edema: scarlett foot and ankle; stable on Lasix 40 mg daily taking 1.5 tabs daily. states it's controlled. Afib - Overall stable. Feels if he lays on his left side this may trigger a fast heart rate. HTN/Hyperlipidemia/CAD: Follows with Cardio at [facility]. Denies checking BP at home. No chest pains or SOB. Notes dizziness but states it's related to vertigo, that tends to be worse during the spring. Has ring that he wears (Fitbit), that tells his HR, sleeping patters, and breathing. Is taking Amiodarone 200 mg half pill daily, Lopressor 25 mg 1 pill BID, Lasix 40 mg daily, Imdur 30 mg BID and Losartan 100 mg 1.5 tablets daily. Was previously going to [employer] to exercise 6 daysa week, but this seemed to cause increased pain and inflammation, so he stopped going. Thinking about backing down on frequency. Pain: Chronic neuropathy, RLS, and Fibro: Taking Gabapentin 300 mg 2 pills at night and Tylenol 2 pills at night. Was referred to Podiatry for neuropathy pain, they feel it's related to his back. [facility] Has constant nightmares at night. Sleep isn't the greatest. Uses Tylenol PM. Asking about losing hair on his legs, now occurring on his body. The body hair loss has noticed over the past month. Asking if this is something that is medication related. - Has Adv Dir/Living will scanned into chart. Depression screening, negative. RSVShingles through Pharmacy due to Insurance. [facility]. Past medical history, appointments, medications, allergies reviewed. Previous Medical History PAST MEDICAL HISTORY Diagnosis Date AAA (abdominal aortic aneurysm) ([facility]) conflicting results Anxiety Bladder cancer ([facility]) [address] Foreman BPH (benign prostatic hyperplasia) BPPV (benign paroxysmal positional vertigo) Carpal tunnel syndrome s/p release Central sleep apnea Coronary artery disease s/p CABG. Dr. Varela Diabetes mellitus, type II (HCC) Diabetic retinopathy (HCC) OU Diverticulosis Fibromyalgia Hard of hearing Hypertension Hypothyroidism Insomnia Left elbow fracture Lipoma of anterior chest wall s/p resection Myocardial infarction (HCC) x3 Obesity (BMI 30-39.9) PRAKASH (obstructive sleep apnea) on CPAP Pulmonary nodules conflicting studies Restless leg syndrome Rheumatoid arthritis (HCC) Trigger finger Previous Surgical History PAST SURGICAL HISTORY Procedure Laterality Date ARTHRP KNE CONDYLE&PLATU MEDIAL&LAT COMPARTMENTS Bilateral x4 each CABG (3) VEIN GRAFTS & ARTERIAL GRAFT(S) 2003 CARPAL TUNNEL Bilateral CHOLECYSTECTOMY open COLONOSCOPY 07/14/2021 No repeat due to age. COLONOSCOPY N/A 07/01/2022 EGD W/O BRSH SPEC VARICIES INJ 07/14/2021 EGD W/O BRS SPEC VARICIES INJ N/A 07/01/2022 PAST SURGICAL HISTORY OF Left Reverse shoulder replacement PAST SURGICAL HISTORY OF Bilateral rotator cuff tear repair PAST SURGICAL HISTORY OF Left elbow fracture repair PAST SURGICAL HISTORY OF Right elbow-bone chip repair PAST SURGICAL HISTORY OF Left trigger finger release PAST SURGICAL HISTORY OF Left tumor resection from rib PAST SURGICAL HISTORY OF prostate surgery PAST SURGICAL HISTORY OF 03/08/2019 TURP, diagnostic cysto Family History FAMILY HISTORY Problem Relation Age of Onset Psychiatry Mother suicide Psychiatry Father suicide Heart Attack Sister Diabetes Brother type I other (celiac disease) Brother Alcohol/Drug Brother Blood Clots Brother Alzheimer's Disease Brother Heart disease Brother other (Pulmonday disease) Brother No Known Problems Brother No Known Problems Maternal Grandmother No Known Problems Maternal Grandfather No Known Problems Paternal Grandmother No Known Problems Paternal Grandfather Patient Allergies ALLERGIES Allergen Reactions Hctz [Hydrochloroth* Other: See Comments hyponatremia Liothyronine Other: See Comments Mouth sores Morphine Other: See Comments sick Mfnrsxn-Vft-Fbp Red* Other: See Comments Mouth sores. Failed multiple statins Sulfa (Sulfonamide * Other: See Comments Mouth sores Synthroid [Levothyr* Other: See Comments Mouth sores. BRAND caused Diarrhea Current Medications Current Outpatient Medications on File Prior to Visit Medication Sig amLODIPine (NORVASC) 10 mg tablet Take 1 tablet by mouth once daily. amiodarone (PACERONE) 200 mg tablet Taking 0.5 tab at bedtime ARMOUR THYROID 60 mg tablet Take 2 pills five days a week and 1 pill two days a week. furosemide (LASIX) 40 mg tablet Take 1 tablet by mouth once daily. gabapentin (NEURONTIN) 300 mg capsule Take 1 capsule by mouth two times a day for 180 days. glipiZIDE (GLUCOTROL) 10 mg tablet Take 1 tablet (10 mg) by mouth once daily. isosorbide mononitrate ER (IMDUR) 30 mg 24 hr tablet Take 1 tablet by mouth two times a day. losartan (COZAAR) 100 mg tablet Take 1.5 tablets by mouth once daily. metFORMIN (GLUCOPHAGE) 1,000 mg tablet Take 1 tablet by mouth daily with dinner. pantoprazole DR (PROTONIX) 40 mg tablet Take 1 tablet by mouth daily before breakfast. Take on empty stomach, 1/2 hr before meal. CPAP Initiate CPAP @ 12 cm of water with humidification. Mask (per patient preference) optional chin strap (if indicated) , filters, tubing, humidifier and lifetime supplies. polyethylene glycol 3350 (MIRALAX) 17 gram/dose powder Take 289 g by mouth once daily. Dissolve dose in 4 - 8 ounces of liquid and take as directed. acetaminophen (TYLENOL) 325 mg tablet 650 mg every 4 hours as needed. aspirin, enteric coated (ASPIRIN, ENTERIC COATED) 81 mg EC tablet Take 81 mg by mouth once daily. cholecalciferol (VITAMIN D-3) 5,000 unit tab Take 5,000 Units by mouth once daily. cyanocobalamin, vitamin B-12, (VITAMIN B-12 ORAL) Take by mouth once daily. 2000 mg No current facility-administered medications on file prior to visit. Social History Social History Tobacco Use Smoking status: Former Current packs/day: 0.00 Types: Cigarettes Quit date: 06/29/1966 Years since quittin.2 Smokeless tobacco: Never Tobacco comments: when he was 15 years old Vaping Use Vaping status: Never Used Substance Use Topics Alcohol use: Yes Comment: rare Drug use: No EXAM: BP 128/66 (BP Site: Left Arm, BP Position: Sitting, BP Cuff Size: Large Adult) Pulse (!) 56 Resp 18 Wt 106.5 kg (234 lb 12.6 oz) BMI 35.70 kg/m General Appearance: Well appearing, alert, in no acute distress, well-hydrated, well nourished. andObese. Neck: Supple, no adenopathy; thyroid symmetric, normal size, no bruits. Lungs: Lungs clear to auscultation. No wheezing, rhonchi, rales.. Heart: RRR without murmur, gallop, or rubs. No ectopy. Extremities: Edema: b/l minimal swelling noted on exam today. Health Maintenance List Shingrix Vaccine(1 of 2) Never done Diabetic Foot Exam due on 04/24/2020 Dilated Retinal Exam due on 09/18/2021 DTaP,Tdap,Td Vaccine(2 - Tdap) due on 02/01/2023 RSV Vaccine(1 - 1-dose 75+ series) Never done Advance Directive Discussion due on 04/19/2024 Depression Screening due on 07/29/2024 Covid-19 Vaccine( season) due on 01/31/2025 Influenza Vaccine(Season Ended) due on 12/18/2024 HbA1C due on 02/22/2025 Annual PCP Team Chronic Disease Visit due on 02/28/2025 BP Controlled (<130/80) due on 02/28/2025 Urine Albumin:Creatinine Ratio due on 08/22/2025 LDL Cholesterol due on 08/22/2025 Serum Creatinine due on 08/22/2025 Hemoglobin/Hematocrit due on 08/22/2025 Colorectal Cancer Screening due on 07/14/2026 Hepatitis C Screening Completed Pneumococcal Vaccine: 50+ Completed Data reviewed Appointment on 08/22/2024 Component Date Value Protein, Total 08/22/2024 7.6 Albumin 08/22/2024 4.7 Calcium, Total 08/22/2024 10.0 Bilirubin, Total 08/22/2024 0.7 Alkaline Phosphatase 08/22/2024 70 AST 08/22/2024 28 ALT 08/22/2024 19 Glucose 08/22/2024 102 (H) BUN 08/22/2024 14 Creatinine 08/22/2024 2.10 (H) Sodium 08/22/2024 140 Potassium 08/22/2024 4.0 Chloride 08/22/2024 101 CO2 08/22/2024 24 Anion Gap 08/22/2024 15 Estimated Glomerular Michael* 08/22/2024 32 (L) Cholesterol, Total 08/22/2024 228 (H) Triglyceride 08/22/2024 258 (H) HDL Cholesterol 08/22/2024 33 (L) LDL Cholesterol, Calcula* 08/22/2024 148 (H) Non HDL Cholesterol 08/22/2024 195 (H) VLDL Cholesterol 08/22/2024 48 (H) TC:HDL Ratio 08/22/2024 6.91 (H) LDL:HDL Ratio 08/22/2024 4.48 (H) Fasting Time 08/22/2024 12 Hemoglobin A1C 08/22/2024 6.4 (H) Estimated Average Glucose 08/22/2024 137 WBC 08/22/2024 5.39 RBC 08/22/2024 4.00 (L) Hemoglobin 08/22/2024 13.4 Hematocrit 08/22/2024 38.6 (L) MCV 08/22/2024 96.5 MCH 08/22/2024 33.5 MCHC 08/22/2024 34.7 RDW-CV 08/22/2024 13.6 Platelet Count 08/22/2024 235 MPV 08/22/2024 10.4 Neutrophils % 08/22/2024 56.6 Abs Neut 08/22/2024 3.05 Lymphocytes % 08/22/2024 31.2 Abs Lymph 08/22/2024 1.68 Monocytes % 08/22/2024 10.4 Abs Cottle 08/22/2024 0.56 Eosinophils % 08/22/2024 0.9 Abs Eosin 08/22/2024 0.05 Basophils % 08/22/2024 0.7 Abs Baso 08/22/2024 0.04 Immature Granulocytes % 08/22/2024 0.2 Abs Immature Gran 08/22/2024 <0.03 NRBC 08/22/2024 0.0 Absolute nRBC 08/22/2024 <0.01 Diff Type 08/22/2024 Auto Creatinine, Ur Random (U* 08/22/2024 41.2 Albumin, Urine Random 08/22/2024 26.5 Albumin/Creat Ratio 08/22/2024 64 (H) ASSESSMENT/PLAN: 1. Essential hypertension - ICD9: 401.9, ICD10: I10 (primary diagnosis) - Controlled - Continue current medications - Recommend home blood pressure monitoring, to bring results to next visit - Encouraged sodium restriction, DASH or Mediterranean diet - Recommend regular aerobic exercise 2. Type 2 diabetes mellitus with diabetic neuropathy, without long-term current use of insulin (HCC) - ICD9: 250.60, 357.2, ICD10: E11.40 - Controlled - Continue current medications - Counseled on healthy diet and regular exercise 3. Paroxysmal A-fib (HCC) - ICD9: 427.31, ICD10: I48.0 - Stable - Continue current medication regimen. 4. Stage 3b chronic kidney disease (HCC) - ICD9: 585.3, ICD10: N18.32 - eGFR: 32 Stable - Counseled on avoiding NSAIDs, adequate hydration 5. Mixed hyperlipidemia - ICD9: 272.2, ICD10: E78.2 - Stable, unable to tolerate statin medications - Counseled on healthy diet and regular exercise 6. Coronary artery disease involving [place] coronary artery of [place] heart without angina pectoris- ICD9: 414.01, ICD10: I25.10 - Stable - Continue watching diet and exercise - Cont f/u with Cardiology 7. Bilateral leg edema - ICD9: 782.3, ICD10: R60.0 - Stable on current regimen 8. Acquired hypothyroidism - ICD9: 244.9, ICD10: E03.9 - Instructed patient on importance of taking on an empty stomach either first thing in the morning or at bedtime. - check TSH in 6 months 9. RLS (restless legs syndrome) - ICD9: 333.94, ICD10: G25.81 - Stable - Continue current medication regimen. 10. Neuropathy - ICD9: 355.9, ICD10: G62.9 - [facility] possible pain related to his [facility]. Testing later this month. - Continue current medication regimen. 11. Fibromyalgia - ICD9: 729.1, ICD10: M79.7 - Stable - Continue current medication regimen. 12. PRAKASH (obstructive sleep apnea) - ICD9: 327.23, ICD10: G47.33 - Stable with use of CPAP; with benefit. 13. Gastroesophageal reflux disease with esophagitis without hemorrhage - ICD9: 530.81, 530.10, ICD10: K21.00 - Stable - Continue current medication regimen. 14. Benign prostatic hyperplasia, unspecified whether lower urinary tract symptoms present - ICD9: 600.00, ICD10: N40.0 - Stable - Cont f/u with Urology 15. Malignant neoplasm of urinary bladder, unspecified site (HCC) - ICD9: 188.9, ICD10: C67.9 - Stable - Continue f/u with Urology 16. Generalized abdominal pain - ICD9: 789.07, ICD10: R10.84 - Improved without alcohol. - Continue current medication regimen. 17. Screening for depression - ICD9: V79.0, ICD10: Z13.31 - negative - DEPRESSION SCREENING 6 mo f/u - Medicare Wellness. I agree with the Chief Complaint, ROS, and Past Histories independently gathered by the clinical production support consultant and the remaining scribed note accurately describes my personal service to the patient. Medical Decision Making: Problems: Moderate: 2+ stable chronic illnesses Data: Unique test result(s) reviewed: 3+ Unique test(s) ordered: 3+ Risk: Moderate: Drug management Medical Decision Making Level: 4 - Moderate Allan Rosario MD The documentation for this note was completed by Joann Crum MA acting as scribe for Allan Rosario MD. August 29, 2024 8:22 AM. Joann Crum MA documented in this encounterAd[facility]25 NoteHNO ID: [id number] Author: ALLAN ROSARIO MD Service: ? Author Type: Physician Type: Progress Notes Filed: 08/29/2024 09:03 Note Text: Chief Complaint Patient presents with: F/U 6 Month HPI Aza Trino Sheth is a 74 year old male who presents here today for 6 month follow up. here for visit with pt. [facility]. No bowel, Gi issues, uses Miralax and Benefiber daily. Stomach has improved, no longer drinking. Follows with Urologist Dr. Foreman annually. Denies any urinary issues. Denies nocturia often. GERD: Controlled on Protonix 40 mg daily. CKD: monitored with labs. Stable. Thyroid: Taking Pork Thyroid 60-65 mg 2 pills once a day. Denies any missed dosages. PRAKASH: Is on a CPAP at night, which is working well for him. Getting supplies through [facility]. DM: Does not check BS at home. Denies any low blood sugars. Has neuropathy in feet which is controlled on Gabapentin 300 mg 2 pills at bedtime. Has upcoming appt with [facility]. Getting eye exams done through [facility]. Is taking Metformin 1,000 mg daily and Glucotrol 10 mg daily. Edema: scarlett foot and ankle; stable on Lasix 40 mg daily taking 1.5 tabs daily. states it's controlled. Afib - Overall stable. Feels if he lays on his left side this may trigger a fast heart rate. HTN/Hyperlipidemia/CAD: Follows with Cardio at [facility]. Denies checking BP at home. No chest pains or SOB. Notes dizziness but states it's related to vertigo, that tends to be worse during the spring. Has ring that he wears (Fitbit), that tells his HR, sleeping patters, and breathing. Is taking Amiodarone 200 mg half pill daily, Lopressor 25 mg 1 pill BID, Lasix 40 mg daily, Imdur 30 mg BID and Losartan 100 mg 1.5 tablets daily. Was previously going to [place] to exercise 6 days a week, but this seemed to cause increased pain and inflammation, so he stopped going. Thinking about backing down on frequency. Pain: Chronic neuropathy, RLS, and Fibro: Taking Gabapentin 300 mg 2 pills at night and Tylenol 2 pills at night. Was referred to Podiatry for neuropathy pain, they feel it's related to his back. [facility]. Has constant nightmares at night. Sleep isn't the greatest. Uses Tylenol PM. Asking about losing hair on his legs, now occurring on his body. The body hair loss has noticed over the past month. Asking if this is something that is medication related. - Has Adv Dir/Living will scanned into chart. Depression screening, negative. RSVShingles through Pharmacy due to Insurance. [facility] in the [facility]. Past medical history, appointments, medications, allergies reviewed. Previous Medical History PAST MEDICAL HISTORY Diagnosis Date AAA (abdominal aortic aneurysm) (HCC) conflicting results Anxiety Bladder cancer (HCC) [address] Foreman BPH (benign prostatic hyperplasia) BPPV (benign paroxysmal positional vertigo) Carpal tunnel syndrome s/p release Central sleep apnea Coronary artery disease s/p CABG. Dr. Varela Diabetes mellitus, type II (HCC) Diabetic retinopathy (HCC) OU Diverticulosis Fibromyalgia Hard of hearing Hypertension Hypothyroidism Insomnia Left elbow fracture Lipoma of anterior chest wall s/p resection Myocardial infarction (HCC) x3 Obesity (BMI 30-39.9) PRAKASH (obstructive sleep apnea) on CPAP Pulmonary nodules conflicting studies Restless leg syndrome Rheumatoid arthritis (HCC) Trigger finger Previous Surgical History PAST SURGICAL HISTORY Procedure Laterality Date ARTHRP KNE CONDYLEANDPLATU MEDIALANDLAT COMPARTMENTS Bilateral x4 each CABG (3) VEIN GRAFTS AND ARTERIAL GRAFT(S) 2004 CARPAL TUNNEL Bilateral CHOLECYSTECTOMY open COLONOSCOPY 07/14/2021 No repeat due to age. COLONOSCOPY N/A 07/01/2022 EGD W/O [facility] SPEC VARICIES INJ 07/14/2021 EGD W/O BRS SPEC VARICIES INJ N/A 07/01/2022 PAST SURGICAL HISTORY OF Left Reverse shoulder replacement PAST SURGICAL HISTORY OF Bilateral rotator cuff tear repair PAST SURGICAL HISTORY OF Left elbow fracture repair PAST SURGICAL HISTORY OF Right elbow-bone chip repair PAST SURGICAL HISTORY OF Left trigger finger release PAST SURGICAL HISTORY OF Left tumor resection from rib PAST SURGICAL HISTORY OF prostate surgery PAST SURGICAL HISTORY OF 03/08/2019 TURP, diagnostic cysto Family History FAMILY HISTORY Problem Relation Age of Onset Psychiatry Mother suicide Psychiatry Father suicide Heart Attack Sister Diabetes Brother type I other (celiac disease) Brother Alcohol/Drug Brother Blood Clots Brother Alzheimer's Disease Brother Heart disease Brother other (Pulmonday disease) Brother No Known Problems Brother No Known Problems Maternal Grandmother No Known Problems Maternal Grandfather No Known Problems Paternal Grandmother No Known Problems Paternal Grandfather Patient Allergies (more content not included)...[facility] 07-10-2024 Telephone encounter Note* Telephone Encounter - Yesenia Hagan LPN - 07/10/2024 9:12 AM EDT Prescription Refill Information The patient has been identified by name and date of : Yes Caregiver verified no other encounters exist for this prescription request: Yes Caregiver confirmed with patient/requestor that no other refills are due, in the near future, with this provider at this time: Yes The last office visit in the department: 02/29/24 Does the patient have a future office visit with this provider/department: Yes 08/29/24 Requested Prescriptions Pending Prescriptions Disp Refills amLODIPine (NORVASC) 10 mg tablet 90 tablet 3 Sig: Take 1 tablet by mouth once daily. Yesenia Hagan LPN July 10, 2024 9:13 AM [facility]03-24-2025 Miscellaneous Notes* Telephone Encounter - Yesenia Hagan LPN - 07/10/2024 9:12 AM EDT Prescription Refill Information The patient has been identified by name and date of : Yes Caregiver verified no other encounters exist for this prescription request: Yes Caregiver confirmed with patient/requestor that no other refills are due, in the near future, with this provider at this time: Yes The last office visit in the department: 02/29/24 Does the patient have a future office visit with this provider/department: Yes 08/29/24 Requested Prescriptions Pending Prescriptions Disp Refills amLODIPine (NORVASC) 10 mg tablet 90 tablet 3 Sig: Take 1 tablet by mouth once daily. Yesenia Hagan LPN July 10, 2024 9:13 AM documented in this encounterAdams [facility]01-29-2025 Telephone encounter Note * Telephone Encounter - Nikkie Hernandez MA - 05/17/2024 10:26 AM EST Images from the original note were not included. PA was approved and notified that insurance will pay for 1.5 tab daily. Canceled rx for one tab out and put detailed not in d/c reason Nikkie Hernandez MA [facility]01-29-2025 Miscellaneous Notes* Telephone Encounter - Nikkie Hernandez MA - 05/17/2024 10:26 AM EST Images from the original note were not included. PA was approved and notified that insurance will pay for 1.5 tab daily. Canceled rx for one tab out and put detailed not in d/c reason Nikkie Hernandez MA * Telephone Encounter - Nikkie Hernandez MA - 05/16/2024 4:56 PM EST Submitted Pa for 1.5 tab daily through covermymeds [place]: [id number] Nikkie Hernandez MA * Telephone Encounter - Joann Crum MA - 05/16/2024 4:20 PM EST Routed to PA Nurse, as noted below a PA will need to be done. Joann Crum MA * Telephone Encounter - Allan Rosario MD - 05/16/2024 3:23 PM EST OK to change to 1 tab daily;new Rx done Allan Rosario MD * Telephone Encounter - Carissa Rosales LPN - 05/16/2024 2:58 PM EST Pt's calls to report that insurance does not want to cover losartan 100 mg 1.5 tabs daily. reports she looked on the formulary and it looks like they will cover 1 tab daily. If pt is to continue on 1.5 tabs daily of losartan 100 mg then a prior auth will need to be done. Please review and advise. Carissa Rosales LPN documented in this encounterAdams [facility] Hospital01-28-2025 Telephone encounter Note * Telephone Encounter - Nikkie Hernandez MA - 05/16/2024 4:56 PM EST Submitted Pa for 1.5 tab daily through covermymeds [place]: [id number] Nikkie Hernandez MA [facility]01-28-[facility] Telephone encounter Note* Telephone Encounter - Joann Crum MA - 05/16/2024 4:20 PM EST Routed to PA Nurse, as noted below a PA will need to be done. Joann Crum MA [facility]01-28-[facility] Telephone encounter Note* Telephone Encounter - Allan Rosario MD - 05/16/2024 3:23 PM EST OK to change to 1 tab daily;new Rx done Allan Rosario MD [facility]01-[facility] Telephone encounter Note* Telephone Encounter - Carissa Rosales LPN - 05/16/2024 2:58 PM EST Pt's calls to report that insurance does not want to cover losartan 100 mg 1.5 tabs daily. reports she looked on the formulary and it looks like they will cover 1 tab daily. If pt is to continue on 1.5 tabs daily of losartan 100 mg then a prior auth will need to be done. Please review and advise. Carissa Rosales LPN [facility]01-21-[facility] Telephone encounter Note* Telephone Encounter - Allan Rosario MD - 05/09/2024 4:52 PM EST OK to refill as ordered Allan Rosario MD [facility]01-21-2025 Miscellaneous Notes* Telephone Encounter - Allan Rosario MD - 05/09/2024 4:52 PM EST OK to refill as ordered Allan Rosario MD * Telephone Encounter - Yesenia Woods RN - 05/09/2024 4:06 PM EST The patient has been identified by name and date of : Yes Caregiver verified no other encounters exist for this prescription request: Yes Caregiver confirmed with patient/requestor that no other refills are due, in the near future, with this provider at this time: Yes The last office visit in the department: 02/29/2024 Does the patient have a future office visit with this provider/department: Yes 08/29/2024 Requested Prescriptions Pending Prescriptions Disp Refills amiodarone (PACERONE) 200 mg tablet 45 tablet 3 Sig: Taking 0.5 tab at bedtime ARMOUR THYROID 60 mg tablet 160 tablet 3 Sig: Take 2 pills five days a week and 1 pill two days a week. furosemide (LASIX) 40 mg tablet 90 tablet 3 Sig: Take 1 tablet by mouth once daily. gabapentin (NEURONTIN) 300 mg capsule 180 capsule 1 Sig: Take 1 capsule by mouth two times a day for 180 days. glipiZIDE (GLUCOTROL) 10 mg tablet 90 tablet 3 Sig: Take 1 tablet (10 mg) by mouth once daily. isosorbide mononitrate ER (IMDUR) 30 mg 24 hr tablet 180 tablet 3 Sig: Take 1 tablet by mouth two times a day. losartan (COZAAR) 100 mg tablet 135 tablet 3 Sig: Take 1.5 tablets by mouth once daily. metFORMIN (GLUCOPHAGE) 1,000 mg tablet 90 tablet 3 Sig: Take 1 tablet by mouth daily with dinner. pantoprazole DR (PROTONIX) 40 mg tablet 90 tablet 3 Sig: Take 1 tablet by mouth daily before breakfast. Take on empty stomach, 1/2 hr before meal. Yesenia Woods RN May 09, 2024 4:08 PM documented in this encounterAdams [facility]01-21-2025 Telephone encounter Note * Telephone Encounter - Yesenia Woods RN - 05/09/2024 4:06 PM EST The patient has been identified by name and date of : Yes Caregiver verified no other encounters exist for this prescription request: Yes Caregiver confirmed with patient/requestor that no other refills are due, in the near future, with this provider at this time: Yes The last office visit in the department: 02/29/2024 Does the patient have a future office visit with this provider/department: Yes 08/29/2024 Requested Prescriptions Pending Prescriptions Disp Refills amiodarone (PACERONE) 200 mg tablet 45 tablet 3 Sig: Taking 0.5 tab at bedtime ARMOUR THYROID 60 mg tablet 160 tablet 3 Sig: Take 2 pills five days a week and 1 pill two days a week. furosemide (LASIX) 40 mg tablet 90 tablet 3 Sig: Take 1 tablet by mouth once daily. gabapentin (NEURONTIN) 300 mg capsule 180 capsule 1 Sig: Take 1 capsule by mouth two times a day for 180 days. glipiZIDE (GLUCOTROL) 10 mg tablet 90 tablet 3 Sig: Take 1 tablet (10 mg) by mouth once daily. isosorbide mononitrate ER (IMDUR) 30 mg 24 hr tablet 180 tablet 3 Sig: Take 1 tablet by mouth two times a day. losartan (COZAAR) 100 mg tablet 135 tablet 3 Sig: Take 1.5 tablets by mouth once daily. metFORMIN (GLUCOPHAGE) 1,000 mg tablet 90 tablet 3 Sig: Take 1 tablet by mouth daily with dinner. pantoprazole DR (PROTONIX) 40 mg tablet 90 tablet 3 Sig: Take 1 tablet by mouth daily before breakfast. Take on empty stomach, 1/2 hr before meal. Yesenia Woods RN May 09, 2024 4:08 PM [facility]01-[facility] Telephone encounter Note* Telephone Encounter - Tory Banks MA - 05/01/2024 7:03 PM EST Faxed. Tory Banks MA [facility]01-13-[facility]25 Miscellaneous Notes* Telephone Encounter - Tory Banks MA - 05/01/2024 7:03 PM EST Faxed. Tory Banks MA * Telephone Encounter - Tory Banks MA - 04/11/2024 8:54 AM EST Type of letter/form/fax request - Exercise Program Order Form received from fax on 1 floor and placed on MD desk (Dr. Rosario) for completion. Completed form needs to be faxed to [facility] at [phone]. Route to [place] when form completed for processing documented in this encounterAdams [facility]12-24-2024 Telephone encounter Note * Telephone Encounter - Tory Banks MA - 04/11/2024 8:54 AM EST Type of letter/form/fax request - Exercise Program Order Form received from fax on 1 floor and placed on MD desk (Dr. Rosario) for completion. Completed form needs to be faxed to [facility] at [phone]. Route to [place] when form completed for processing [facility]12-[facility] Evaluation note* Diagnosis Onset Date Resolution Status Admit Date Atrial fibrillation acute Decem andres 2023 9:07am Atherosclerotic heart diseas e of [place] coronary artery without angina pectoris chronic March 20, 2024 9:07am Chest mass chronic March 20, 2024 9:07am History of ischemic cardiomyopathy chronic March 20 9:07am HLD (hyperlipidemia) chronic Dece mber 2023 9:07am [facility] Work Phone: 1(837) 735-614611-12-2024 History of Present illness Narrative* Allan Rosario MD - 02/29/2024 10:00 AM EST Chief Complaint Patient presents with: F/U 1 month HPI Aza Trino Sheth is a 73 year old male who presents here today for a 1 month follow up. Pt here with his for a follow up visit. Pt seen on 02/01/24 with increased b/l leg edema and abdominal bloating. Pt's Lasix was increased to 60 mg for 1 month as recommended by this office. Pt has since seen Cardiology on 02/16/24 who alsomade changes to his regimen. They recommended increasing Lasix to 100 mg for 3-5 days and d/c Metoprolol 25 mg 1 tab po bid. Due to swelling not being completely controlled states he's currentlytaking Lasix 40 mg bid, which has seemed to help, may have some residual swelling in his feet. Breathing stable at this time. Had echo done that they will review at his appt in March. Has noticed when wearing long socks, he doesn't notice an indent when he takes them off as bad as before. Notes the past two days he's had heart palpitations at night, tries to change position in bed which makes the palpitations resolve most times. Last night it started and he had to get up and walk to calm it down, broke out in a sweat. States he sat down under a fan and cooled himself down and eventually the palpitation went away. Reports when these episodes occurred in the past he's had to go to the ED. Did discuss calling Cardio to update them since they wanted to discuss other/better medications. Wears a ring that keeps track of his cardiac vitals and transfers over to his phone. Feels he's still retaining some fluid in his abdomen, feels bloated. Has lost 9 lbs since last OV. At times he feels he has something balled up in between his toes or the sensation of. Does have neuropathy. States this has been acting up more lately. Asking about medications that can cause hair loss. In the past he lost all the hair on his legs, they told him it was related to his thyroid. Now it's his armpit hair. Asking if weather can cause joint pain. Past medical history, appointments, medications, allergies reviewed. Previous Medical History PAST MEDICAL HISTORY Diagnosis Date AAA (abdominal aortic aneurysm) ([facility]) conflicting results Anxiety Bladder cancer ([facility]) [address] Foreman BPH (benign prostatic hyperplasia) BPPV (benign paroxysmal positional vertigo) Carpal tunnel syndrome s/p release Central sleep apnea Coronary artery disease s/p CABG. Dr. Varela Diabetes mellitus, type II ([facility]) Diabetic retinopathy ([facility]) OU Diverticulosis Fibromyalgia Hard of hearing Hypertension Hypothyroidism Insomnia Left elbow fracture Lipoma of anterior chest wall s/p resection Myocardial infarction (HCC) x3 Obesity (BMI 30-39.9) PRAKASH (obstructive sleep apnea) on CPAP Pulmonary nodules conflicting studies Restless leg syndrome Rheumatoid arthritis (HCC) Trigger finger Previous Surgical History PAST SURGICAL HISTORY Procedure Laterality Date ARTHRP KNE CONDYLE&PLATU MEDIAL&LAT COMPARTMENTS Bilateral x4 each CABG (3) VEIN GRAFTS & ARTERIAL GRAFT(S) 2004 CARPAL TUNNEL Bilateral CHOLECYSTECTOMY open COLONOSCOPY 07/14/2021 No repeat due to age. COLONOSCOPY N/A 07/01/2022 EGD W/O BRS SPEC VARICIES INJ 07/14/2021 EGD W/O BRS SPEC VARICIES INJ N/A 07/01/2022 PAST SURGICAL HISTORY OF Left Reverse shoulder replacement PAST SURGICAL HISTORY OF Bilateral rotator cuff tear repair PAST SURGICAL HISTORY OF Left elbow fracture repair PAST SURGICAL HISTORY OF Right elbow-bone chip repair PAST SURGICAL HISTORY OF Left trigger finger release PAST SURGICAL HISTORY OF Left tumor resection from rib PAST SURGICAL HISTORY OF prostate surgery PAST SURGICAL HISTORY OF 03/08/2019 TURP, diagnostic cysto Family History FAMILY HISTORY Problem Relation Age of Onset Psychiatry Mother suicide Psychiatry Father suicide Heart Attack Sister Diabetes Brother type I other (celiac disease) Brother Alcohol/Drug Brother Blood Clots Brother Alzheimer's Disease Brother Heart disease Brother other (Pulmonday disease) Brother No Known Problems Brother No Known Problems Maternal Grandmother No Known Problems Maternal Grandfather No Known Problems Paternal Grandmother No Known Problems Paternal Grandfather Patient Allergies ALLERGIES Allergen Reactions Hctz [Hydrochloroth* Other: See Comments hyponatremia Liothyronine Other: See Comments Mouth sores Morphine Other: See Comments sick Yygaqyk-Upi-Nsr Red* Other: See Comments Mouth sores. Failed multiple statins Sulfa (Sulfonamide * Other: See Comments Mouth sores Synthroid [Levothyr* Other: See Comments Mouth sores. BRAND caused Diarrhea Current Medications Current Outpatient Medications on File Prior to Visit Medication Sig gabapentin (NEURONTIN) 300 mg capsule Take 1 capsule by mouth two times a day for 180 days. amLODIPine (NORVASC) 10 mg tablet Take 1 tablet by mouth once daily. glipiZIDE (GLUCOTROL) 10 mg tablet Take 1 tablet (10 mg) by mouth once daily. furosemide (LASIX) 40 mg tablet Take 1 tablet by mouth once daily. pantoprazole DR (PROTONIX) 40 mg tablet Take 1 tablet by mouth daily before breakfast. Take on empty stomach, 1/2 hr before meal. metFORMIN (GLUCOPHAGE) 1,000 mg tablet Take 1 tablet by mouth daily with dinner. losartan (COZAAR) 100 mg tablet Take 1.5 tablets by mouth once daily. metoprolol tartrate, short acting, (LOPRESSOR) 25 mg tablet Take 1 tablet by mouth two times a day. isosorbide mononitrate ER (IMDUR) 30 mg 24 hr tablet Take 1 tablet by mouth two times a day. amiodarone (PACERONE) 200 mg tablet Taking 0.5 tab at bedtime ARMOUR THYROID 60 mg tablet Take 2 pills five days a week and 1 pill two days a week. CPAP Initiate CPAP @ 12 cm of water with humidification. Mask (per patient preference) optional chin strap (if indicated) , filters, tubing, humidifier and lifetime supplies. polyethylene glycol 3350 (MIRALAX) 17 gram/dose powder Take 289 g by mouth once daily. Dissolve dose in 4 - 8 ounces of liquid and take as directed. acetaminophen (TYLENOL) 325 mg tablet 650 mg every 4 hours as needed. aspirin, enteric coated (ASPIRIN, ENTERIC COATED) 81 mg EC tablet Take 81 mg by mouth once daily. cholecalciferol (VITAMIN D-3) 5,000 unit tab Take 5,000 Units by mouth once daily. cyanocobalamin, vitamin B-12, (VITAMIN B-12 ORAL) Take by mouth once daily. 2000 mg No current facility-administered medications on file prior to visit. Social History Social History Tobacco Use Smoking status: Former Current packs/day: 0.00 Types: Cigarettes Quit date: 06/29/1966 Years since quittin.7 Smokeless tobacco: Never Tobacco comments: when he was 15 years old Vaping Use Vaping status: Never Used Substance Use Topics Alcohol use: Yes Comment: rare Drug use: No EXAM: BP 116/68 (BP Site: Left Arm, BP Position: Sitting, BP Cuff Size: Large Adult) Pulse 68 Resp 18 Wt 105.1 kg (231 lb 11.3 oz) BMI 35.23 kg/m General Appearance: Well appearing, alert, in no acute distress, well-hydrated, well nourished. andObese. Lungs: Lungs clear to auscultation. No wheezing, rhonchi, rales.. Heart: RRR without murmur, gallop, or rubs. No ectopy. Abdomen: Normal abdominal exam, Abdomen soft, non-tender. Bowel sounds normal. No masses, organomegaly. Extremities: Edema: Improved b/l lower leg edema. Health Maintenance List Abdominal Aortic Aneurysm Screening Never done BP Controlled (<130/80) Never done Shingrix Vaccine(1 of 2) Never done RSV Vaccine(1 - Risk 60-74 years 1-dose series) Never done Diabetic Foot Exam due on 04/24/2020 Dilated Retinal Exam due on 09/18/2021 DTaP,Tdap,Td Vaccine(2 - Tdap) due on 02/01/2023 Advance Directive Discussion due on 04/19/2023 Influenza Vaccine(1) due on 10/16/2024 Covid-19 Vaccine(1 - 2024-25 season) due on 01/31/2025 HbA1C due on 07/25/2024 Urine Albumin:Creatinine Ratio due on 07/26/2024 Depression Screening due on 07/29/2024 LDL Cholesterol due on 01/24/2025 Annual PCP Team Chronic Disease Visit due on 01/31/2025 Serum Creatinine due on 02/22/2025 Hemoglobin/Hematocrit due on 02/22/2025 Colorectal Cancer Screening due on 07/14/2026 Hepatitis C Screening Completed Pneumococcal Vaccine: 65+ Completed Data reviewed Appointment on 02/23/2024 Component Date Value Glucose 02/23/2024 100 (H) BUN 02/23/2024 18 Creatinine 02/23/2024 2.16 (H) Sodium 02/23/2024 139 Potassium 02/23/2024 4.2 Chloride 02/23/2024 100 CO2 02/23/2024 23 Anion Gap 02/23/2024 16 (H) Calcium, Total 02/23/2024 9.7 Estimated Glomerular Michael* 02/23/2024 31 (L) WBC 02/23/2024 4.65 RBC 02/23/2024 3.92 (L) Hemoglobin 02/23/2024 11.0 (L) Hematocrit 02/23/2024 34.0 (L) MCV 02/23/2024 86.7 MCH 02/23/2024 28.1 MCHC 02/23/2024 32.4 RDW-CV 02/23/2024 15.3 (H) Platelet Count 02/23/2024 228 MPV 02/23/2024 10.4 Absolute nRBC 02/23/2024 <0.01 Appointment on 01/25/2024 Component Date Value Protein, Total 01/25/2024 7.2 Albumin 01/25/2024 4.3 Calcium, Total 01/25/2024 9.9 Bilirubin, Total 01/25/2024 0.3 Alkaline Phosphatase 01/25/2024 86 AST 01/25/2024 25 ALT 01/25/2024 17 Glucose 01/25/2024 122 (H) BUN 01/25/2024 15 Creatinine 01/25/2024 1.80 (H) Sodium 01/25/2024 142 Potassium 01/25/2024 4.2 Chloride 01/25/2024 103 CO2 01/25/2024 25 Anion Gap 01/25/2024 14 Estimated Glomerular Michael* 01/25/2024 39 (L) Cholesterol, Total 01/25/2024 232 (H) Triglyceride 01/25/2024 246 (H) HDL Cholesterol 01/25/2024 33 (L) Non HDL Cholesterol 01/25/2024 199 (H) Fasting Time 01/25/2024 12 VLDL Cholesterol 01/25/2024 49 (H) TC:HDL Ratio 01/25/2024 7.03 (H) LDL Cholesterol 01/25/2024 150 (H) LDL:HDL Ratio 01/25/2024 4.55 (H) TSH 01/25/2024 1.510 Hemoglobin A1C 01/25/2024 6.6 (H) Estimated Average Glucose 01/25/2024 143 WBC 01/25/2024 5.35 RBC 01/25/2024 4.02 (L) Hemoglobin 01/25/2024 11.1 (L) Hematocrit 01/25/2024 35.4 (L) MCV 01/25/2024 88.1 MCH 01/25/2024 27.6 MCHC 01/25/2024 31.4 RDW-CV 01/25/2024 15.1 (H) Platelet Count 01/25/2024 239 MPV 01/25/2024 10.4 Neutrophils % 01/25/2024 56.6 Abs Neut 01/25/2024 3.03 Lymphocytes % 01/25/2024 29.9 Abs Lymph 01/25/2024 1.60 Monocytes % 01/25/2024 10.5 Abs Cottle 01/25/2024 0.56 Eosinophils % 01/25/2024 1.9 Abs Eosin 01/25/2024 0.10 Basophils % 01/25/2024 0.9 Abs Baso 01/25/2024 0.05 Immature Granulocytes % 01/25/2024 0.2 Abs Immature Gran 01/25/2024 <0.03 NRBC 01/25/2024 0.0 Absolute nRBC 01/25/2024 <0.01 Diff Type 01/25/2024 Auto ASSESSMENT/PLAN: 1. Bilateral leg edema - ICD9: 782.3, ICD10: R60.0 (primary diagnosis) - Improved - Continue current medication regimen. - Decreased kidney function due to higher diuretic usage. 2. Abdominal bloating - ICD9: 787.3, ICD10: R14.0 - Stable, improved 3. Palpitations - ICD9: 785.1, ICD10: R00.2 - Discussed taking Metoprolol as needed with symptoms - Discussed talking to Cardiology and update 4. Type 2 diabetes mellitus with diabetic neuropathy, without long-term current use of insulin (HCC) - ICD9: 250.60, 357.2, ICD10: E11.40 - Cont f/u as scheduled 5. Paroxysmal a fib Continue current medications. Follow with Cardiology 6 mo f/u with fasting labs. I agree with the Chief Complaint, ROS, and Past Histories independently gathered by the clinical production support consultant and the remaining scribed note accurately describes my personal service to the patient. Medical Decision Making: Problems: Moderate: 2+ stable chronic illnesses Data: Unique test result(s) reviewed: 2 Unique test(s) ordered: 3+ Risk: Moderate: Drug management Medical Decision Making Level: 4 - Moderate Allan Rosario MD The documentation for this note was completed by Joann Crum MA acting as scribe for Allan Rosario MD. February 29, 2024 10:03 AM. Joann Crum MA documented in this [facility]Ad[facility] NoteHNO ID: [id number] Author: ALLAN ROSARIO MD Service: ? Author Type: Physician Type: Progress Notes Filed: 02/29/2024 10:35 Note Text: Chief Complaint Patient presents with: F/U 1 month HPI Salome Sheth is a 73 year old male who presents here today for a 1 month follow up. Pt here with his for a follow up visit. Pt seen on 02/01/24 with increased b/l leg edema and abdominal bloating. Pt's Lasix was increased to 60 mg for 1 month as recommended by this office. Pt has since seen Cardiology on 02/16/24 who also made changes to his regimen. They recommended increasing Lasix to 100 mg for 3-5 days and d/c Metoprolol 25 mg 1 tab po bid. Due to swelling not being completely controlled states he's currently taking Lasix 40 mg bid, which has seemed to help, may have some residual swelling in his feet. Breathing stable at this time. Had echo done that they will review at his appt in March. Has noticed when wearing long socks, he doesn't notice an indent when he takes them off as bad as before. Notes the past two days he's had heart palpitations at night, tries to change position in bed which makes the palpitations resolve most times. Last night it started and he had to get up and walk to calm it down, broke out in a sweat. States he sat down under a fan and cooled himself down and eventually the palpitation went away. Reports when these episodes occurred in the past he's had to go to the ED. Did discuss calling Cardio to update them since they wanted to discuss other/better medications. Wears a ring that keeps track of his cardiac vitals and transfers over to his phone. Feels he's still retaining some fluid in his abdomen, feels bloated. Has lost 9 lbs since last OV. At times he feels he has something balled up in between his toes or the sensation of. Does have neuropathy. States this has been acting up more lately. Asking about medications that can cause hair loss. In the past he lost all the hair on his legs, they told him it was related to his thyroid. Now it's his armpit hair. Asking if weather can cause joint pain. Past medical history, appointments, medications, allergies reviewed. Previous Medical History PAST MEDICAL HISTORY Diagnosis Date AAA (abdominal aortic aneurysm) ([facility]) conflicting results Anxiety Bladder cancer ([facility]) [address] Foreman BPH (benign prostatic hyperplasia) BPPV (benign paroxysmal positional vertigo) Carpal tunnel syndrome s/p release Central sleep apnea Coronary artery disease s/p CABG. Dr. Varela Diabetes mellitus, type II ([facility]) Diabetic retinopathy (HCC) OU Diverticulosis Fibromyalgia Hard of hearing Hypertension Hypothyroidism Insomnia Left elbow fracture Lipoma of anterior chest wall s/p resection Myocardial infarction (HCC) x3 Obesity (BMI 30-39.9) PRAKASH (obstructive sleep apnea) on CPAP Pulmonary nodules conflicting studies Restless leg syndrome Rheumatoid arthritis (HCC) Trigger finger Previous Surgical History PAST SURGICAL HISTORY Procedure Laterality Date ARTHRP KNE CONDYLEANDPLATU MEDIALANDLAT COMPARTMENTS Bilateral x4 each CABG (3) VEIN GRAFTS AND ARTERIAL GRAFT(S) 2003 CARPAL TUNNEL Bilateral CHOLECYSTECTOMY open COLONOSCOPY 07/14/2021 No repeat due to age. COLONOSCOPY N/A 07/01/2022 EGD W/O [facility] SPEC VARICIES INJ 07/14/2021 EGD W/O [facility] SPEC VARICIES INJ N/A 07/01/2022 PAST SURGICAL HISTORY OF Left Reverse shoulder replacement PAST SURGICAL HISTORY OF Bilateral rotator cuff tear repair PAST SURGICAL HISTORY OF Left elbow fracture repair PAST SURGICAL HISTORY OF Right elbow-bone chip repair PAST SURGICAL HISTORY OF Left trigger finger release PAST SURGICAL HISTORY OF Left tumor resection from rib PAST SURGICAL HISTORY OF prostate surgery PAST SURGICAL HISTORY OF 03/08/2019 TURP, diagnostic cysto Family History FAMILY HISTORY Problem Relation Age of Onset Psychiatry Mother suicide Psychiatry Father suicide Heart Attack Sister Diabetes Brother type I other (celiac disease) Brother Alcohol/Drug Brother Blood Clots Brother Alzheimer's Disease Brother Heart disease Brother other (Pulmonday disease) Brother No Known Problems Brother No Known Problems Maternal Grandmother No Known Problems Maternal Grandfather No Known Problems Paternal Grandmother No Known Problems Paternal Grandfather Patient Allergies ALLERGIES Allergen Reactions Hctz [Hydrochloroth* Other: See Comments hyponatremia Liothyronine Other: See Comments Mouth sores Morphine Other: See Comments sick [id number] Red* Other: See Comments Mouth sores. Failed multiple statins Sulfa (Sulfonamide * Other: See Comments Mouth sores Synthroid [Levothyr* Other: See Comments Mouth sores. BRAND caused Diarrhea Current Medications Current Outpatient Medications on File Prior to Visit Medication Sig gabapentin (NEURO (more content not included)...[facility] 02-01-2024 Instructions* Patient Instructions* Tory Banks MA - 02/01/2024 8:20 AM EDT Increase the Lasix to 60 mg (1.5 tablets) daily for a month and see how the swelling in the feet and stomach do. Be sure to discuss the swelling of abdomen and feet at your next Cardiology appointment. documented in this encounterAd[facility]10-15-2024 History of Present illness Narrative* Allan Rosario MD - 02/01/2024 8:00 AM EDT Chief Complaint Patient presents with: 6 Month Exam HPI Salome Sheth is a 73 year old male who presents here today for a 6 month follow up. Here with [facility] . [facility] No urinary issues. Denies getting up at night to urinate. Is complaining for feeling Full/bloated for the last 6 months Denies any changes to his bowel, no vomiting/nausea. He has feeling of pressurein the upper abdomen. Eating and drinking make the bloating worse. He states that he feels bloated all day long. He not hungry or eating much. He feels like [facility]. No longer following with Gastro (Dr. Reyes) and Urology (Dr. Foreman). Eats prunes daily in the morning, takes Miralax, Benefiber and Gas-X for GI symptoms/constipation. Has routine PSA checked due to hx of prostate cancer. Gets up once a night to urinate. GERD: Controlled with use of Protonix 40 mg once daily. HTN: Checking BP occ at home. Denies any chest pain, sob, or dizziness. Does follow with [facility], next appt in Mar. On current regimen of Lopressor 25 mg 1 tab po bid, Lasix 40 mg once daily, Losartan 100 mg 1.5 tabs po daily, Imdur 30 mg 1 tab po bid and Amiodarone 200 mg 0.5 tab daily. He has ring that he wears that monitors his heart rate, sleep patterns, etc. CKD: Monitoring through routine labs, was referred to Nephrology. Was to see them after his last visit. Edema: B/L foot and ankle edema, stable on current regimen of Lasix 40 mg 1 tab po prn. Has been advised by Cardio if swelling not improved can take extra 0.5 tab. has been giving pt an extra half tablet of Lasix as needed maybe 2 x a week. The swelling usually will go down at night if he has had the extra half pill. Elevates the head of the bed to sleep, denies any SOB at night when laying down. DM: No longer checking BS at home., might check occ with FBS usually in the 80s. Denies any hypoglycemic episodes. Does have chronic neuropathy, taking Gabapentin 300 mg 2 tabs at bedtime. Has previously seen Podiatry, Dr. Testrake. On current regimen of Metformin 1,000 mg once daily and Glucotrol 10 mg daily. [facility]. Thyroid: Stable on current regimen of Pork Thyroid 60-65 mg 2 tabs daily. Has reported weight gain at previous visits, still going up. Denies any missed dosages. T PRAKASH: Uses CPAP nightly. Does well with CPAP. Receives supplies through [employer]. Takes Zquil at bedtime. Pain: Chronic neuropathy, RLS and Fibro. Sleep has been difficult due to his knee's bothering him. Overall pain is an issue that seems to keep him awake. Has been previously controlled on current regimen of Gabapentin 300 mg 2 caps at bedtime. Was taking 4 Gabapentin in the past, but trying to cut back on this. Uses Tylenol 2 tabs at bedtime as well. Past medical history, appointments, medications, allergies reviewed. Previous Medical History PAST MEDICAL HISTORY Diagnosis Date AAA (abdominal aortic aneurysm) (HCC) conflicting results Anxiety Bladder cancer ([facility]) [address] Foreman BPH (benign prostatic hyperplasia) BPPV (benign paroxysmal positional vertigo) Carpal tunnel syndrome s/p release Central sleep apnea Coronary artery disease s/p CABG. Dr. Varela Diabetes mellitus, type II (HCC) Diabetic retinopathy (HCC) OU Diverticulosis Fibromyalgia Hard of hearing Hypertension Hypothyroidism Insomnia Left elbow fracture Lipoma of anterior chest wall s/p resection Myocardial infarction (HCC) x3 Obesity (BMI 30-39.9) PRAKASH (obstructive sleep apnea) on CPAP Pulmonary nodules conflicting studies Restless leg syndrome Rheumatoid arthritis (HCC) Trigger finger Previous Surgical History PAST SURGICAL HISTORY Procedure Laterality Date ARTHRP KNE CONDYLE&PLATU MEDIAL&LAT COMPARTMENTS Bilateral x4 each CABG (3) VEIN GRAFTS & ARTERIAL GRAFT(S) 2003 CARPAL TUNNEL Bilateral CHOLECYSTECTOMY open COLONOSCOPY 07/14/2021 No repeat due to age. COLONOSCOPY N/A 07/01/2022 EGD W/O [facility] SPEC VARICIES INJ 07/14/2021 EGD W/O [facility] SPEC VARICIES INJ N/A 07/01/2022 PAST SURGICAL HISTORY OF Left Reverse shoulder replacement PAST SURGICAL HISTORY OF Bilateral rotator cuff tear repair PAST SURGICAL HISTORY OF Left elbow fracture repair PAST SURGICAL HISTORY OF Right elbow-bone chip repair PAST SURGICAL HISTORY OF Left trigger finger release PAST SURGICAL HISTORY OF Left tumor resection from rib PAST SURGICAL HISTORY OF prostate surgery PAST SURGICAL HISTORY OF 03/08/2019 TURP, diagnostic cysto Family History FAMILY HISTORY Problem Relation Age of Onset Psychiatry Mother suicide Psychiatry Father suicide Heart Attack Sister Diabetes Brother type I other (celiac disease) Brother Alcohol/Drug Brother Blood Clots Brother Alzheimer's Disease Brother Heart disease Brother other (Pulmonday disease) Brother No Known Problems Brother No Known Problems Maternal Grandmother No Known Problems Maternal Grandfather No Known Problems Paternal Grandmother No Known Problems Paternal Grandfather Patient Allergies ALLERGIES Allergen Reactions Amlodipine Rash, Swelling Hctz [Hydrochloroth* Other: See Comments hyponatremia Lasix [Furosemide] Other: See Comments Liothyronine Other: See Comments Mouth sores Morphine Other: See Comments sick [id number] Red* Other: See Comments Mouth sores. Failed multiple statins Sulfa (Sulfonamide * Other: See Comments Mouth sores Synthroid [Levothyr* Other: See Comments Mouth sores. BRAND caused Diarrhea Current Medications Current Outpatient Medications on File Prior to Visit Medication Sig gabapentin (NEURONTIN) 300 mg capsule Take 1 capsule by mouth two times a day for 180 days. amLODIPine (NORVASC) 10 mg tablet Take 1 tablet by mouth once daily. glipiZIDE (GLUCOTROL) 10 mg tablet Take 1 tablet (10 mg) by mouth once daily. furosemide (LASIX) 40 mg tablet Take 1 tablet by mouth once daily. pantoprazole DR (PROTONIX) 40 mg tablet Take 1 tablet by mouth daily before breakfast. Take on empty stomach, 1/2 hr before meal. metFORMIN (GLUCOPHAGE) 1,000 mg tablet Take 1 tablet by mouth daily with dinner. losartan (COZAAR) 100 mg tablet Take 1.5 tablets by mouth once daily. metoprolol tartrate, short acting, (LOPRESSOR) 25 mg tablet Take 1 tablet by mouth two times a day. isosorbide mononitrate ER (IMDUR) 30 mg 24 hr tablet Take 1 tablet by mouth two times a day. amiodarone (PACERONE) 200 mg tablet Taking 0.5 tab at bedtime ARMOUR THYROID 60 mg tablet Take 2 pills five days a week and 1 pill two days a week. CPAP Initiate CPAP @ 12 cm of water with humidification. Mask (per patient preference) optional chin strap (if indicated) , filters, tubing, humidifier and lifetime supplies. polyethylene glycol 3350 (MIRALAX) 17 gram/dose powder Take 289 g by mouth once daily. Dissolve dose in 4 - 8 ounces of liquid and take as directed. acetaminophen (TYLENOL) 325 mg tablet 650 mg every 4 hours as needed. aspirin, enteric coated (ASPIRIN, ENTERIC COATED) 81 mg EC tablet Take 81 mg by mouth once daily. cholecalciferol (VITAMIN D-3) 5,000 unit tab Take 5,000 Units by mouth once daily. cyanocobalamin, vitamin B-12, (VITAMIN B-12 ORAL) Take by mouth once daily. 2000 mg No current facility-administered medications on file prior to visit. Social History Social History Tobacco Use Smoking status: Former Current packs/day: 0.00 Types: Cigarettes Quit date: 06/29/1966 Years since quittin.6 Smokeless tobacco: Never Tobacco comments: when he was 15 years old Vaping Use Vaping status: Never Used Substance Use Topics Alcohol use: Yes Comment: rare Drug use: No EXAM: BP 128/88 Pulse 60 Resp 16 Wt 109.1 kg (240 lb 8.4 oz) BMI 36.57 kg/m General Appearance: Well appearing, alert, in no acute distress, well-hydrated, well nourished. andObese. Lungs: Lungs clear to auscultation. No wheezing, rhonchi, rales.. Heart: RRR without murmur, gallop, or rubs. No ectopy. Extremities: Edema: moderate to both ankles. Health Maintenance List Abdominal Aortic Aneurysm Screening Never done Shingrix Vaccine(1 of 2) Never done RSV Vaccine(1 - Risk 60-74 years 1-dose series) Never done Diabetic Foot Exam due on 04/24/2020 Dilated Retinal Exam due on 09/18/2021 DTaP,Tdap,Td Vaccine(2 - Tdap) due on 02/01/2023 Advance Directive Discussion due on 04/19/2023 Influenza Vaccine(1) due on 10/16/2024 Covid-19 Vaccine(1 - season) due on 01/31/2025 HbA1C due on 07/25/2024 Urine Albumin:Creatinine Ratio due on 07/26/2024 Depression Screening due on 07/29/2024 BP Controlled (<130/80) due on 07/29/2024 LDL Cholesterol due on 01/24/2025 Serum Creatinine due on 01/24/2025 Hemoglobin/Hematocrit due on 01/24/2025 Annual PCP Team Chronic Disease Visit due on 01/31/2025 Colorectal Cancer Screening due on 07/14/2026 Hepatitis C Screening Completed Pneumococcal Vaccine: 65+ Completed Data reviewed Appointment on 01/25/2024 Component Date Value Protein, Total 01/25/2024 7.2 Albumin 01/25/2024 4.3 Calcium, Total 01/25/2024 9.9 Bilirubin, Total 01/25/2024 0.3 Alkaline Phosphatase 01/25/2024 86 AST 01/25/2024 25 ALT 01/25/2024 17 Glucose 01/25/2024 122 (H) BUN 01/25/2024 15 Creatinine 01/25/2024 1.80 (H) Sodium 01/25/2024 142 Potassium 01/25/2024 4.2 Chloride 01/25/2024 103 CO2 01/25/2024 25 Anion Gap 01/25/2024 14 Estimated Glomerular Michael* 01/25/2024 39 (L) Cholesterol, Total 01/25/2024 232 (H) Triglyceride 01/25/2024 246 (H) HDL Cholesterol 01/25/2024 33 (L) Non HDL Cholesterol 01/25/2024 199 (H) Fasting Time 01/25/2024 12 VLDL Cholesterol 01/25/2024 49 (H) TC:HDL Ratio 01/25/2024 7.03 (H) LDL Cholesterol 01/25/2024 150 (H) LDL:HDL Ratio 01/25/2024 4.55 (H) TSH 01/25/2024 1.510 Hemoglobin A1C 01/25/2024 6.6 (H) Estimated Average Glucose 01/25/2024 143 WBC 01/25/2024 5.35 RBC 01/25/2024 4.02 (L) Hemoglobin 01/25/2024 11.1 (L) Hematocrit 01/25/2024 35.4 (L) MCV 01/25/2024 88.1 MCH 01/25/2024 27.6 MCHC 01/25/2024 31.4 RDW-CV 01/25/2024 15.1 (H) Platelet Count 01/25/2024 239 MPV 01/25/2024 10.4 Neutrophils % 01/25/2024 56.6 Abs Neut 01/25/2024 3.03 Lymphocytes % 01/25/2024 29.9 Abs Lymph 01/25/2024 1.60 Monocytes % 01/25/2024 10.5 Abs Cottle 01/25/2024 0.56 Eosinophils % 01/25/2024 1.9 Abs Eosin 01/25/2024 0.10 Basophils % 01/25/2024 0.9 Abs Baso 01/25/2024 0.05 Immature Granulocytes % 01/25/2024 0.2 Abs Immature Gran 01/25/2024 <0.03 NRBC 01/25/2024 0.0 Absolute nRBC 01/25/2024 <0.01 Diff Type 01/25/2024 Auto ASSESSMENT/PLAN: 1. Type 2 diabetes mellitus with diabetic neuropathy, without long-term current use of insulin (HCC) - ICD9: 250.60, 357.2, ICD10: E11.40 (primary diagnosis) - Improving control - Continue current medications - Counseled on healthy diet and regular exercise - Discussed need for and benefit of weight loss. BMI 36.57 kg/(m^2) 2. Acquired hypothyroidism - ICD9: 244.9, ICD10: E03.9 - Instructed patient on importance of taking on an empty stomach either first thing in the morning or at bedtime. Continue current medications. 3. Essential hypertension - ICD9: 401.9, ICD10: I10 - Controlled - Continue current medications - Recommend home blood pressure monitoring, to bring results to next visit - Encouraged sodium restriction, DASH or Mediterranean diet - Recommend regular aerobic exercise - Discussed need for and benefit of weight loss. BMI 36.57 kg/(m^2) - Continue with Cardio 4. Coronary artery disease involving [place] coronary artery of [place] heart without angina pectoris- ICD9: 414.01, ICD10: I25.10 Continue current medications. Continue with Cardio 5. PRAKASH (obstructive sleep apnea) - ICD9: 327.23, ICD10: G47.33 Continue with device 6. Mixed hyperlipidemia - ICD9: 272.2, ICD10: E78.2 - Uncontrolled - Counseled on healthy diet and regular exercise - Discussed need for and benefit of weight loss. BMI 36.57 kg/(m^2) 7. Neuropathy - ICD9: 355.9, ICD10: G62.9 Stable Continue current medications. 8. Stage 3b chronic kidney disease (HCC) - ICD9: 585.3, ICD10: N18.32 Continue current medications. Monitor with labs 9. Bilateral leg edema - ICD9: 782.3, ICD10: R60.0 Increase Lasix to 60 mg daily x 1 month 10. Abdominal bloating - ICD9: 787.3, ICD10: R14.0 Increase Lasix to 60 mg daily x 1 month Follow up in 1 months. I agree with the Chief Complaint, ROS, and Past Histories independently gathered by the clinical production support consultant and the remaining scribed note accurately describes my personal service to the patient. Medical Decision Making: Problems: Moderate: 2+ stable chronic illnesses and 1+ chronic illnesses with change Data: Unique test result(s) reviewed: 3+ Unique test(s) ordered: 2 Risk: Moderate: Drug management Medical Decision Making Level: 4 - Moderate Allan Rosario MD The documentation for this note was completed by Tory Banks MA acting as scribe for Allan Rosario MD. February 01, 2024 8:20 AM. Tory Banks MA documented in this encounterAd[facility]10-[facility]24 NoteHNO ID: [id number] Author: ALLAN ROSARIO MD Service: ? Author Type: Physician Type: Progress Notes Filed: 02/01/2024 09:33 Note Text: Chief Complaint Patient presents with: 6 Month Exam LA Sheth is a 73 year old male who presents here today for a 6 month follow up. Here with his . [facility] No urinary issues. Denies getting up at night to urinate. Is complaining for feeling Full/bloated for the last 6 months Denies any changes to his bowel, no vomiting/nausea. He has feeling of pressure in the upper abdomen. Eating and drinking make the bloating worse. He states that he feels bloated all day long. He not hungry or eating much. He feels like he over ate at [place]. No longer following with Gastro (Dr. Reyes) and Urology (Dr. Foreman). Eats prunes daily in the morning, takes Miralax, Benefiber and Gas-X for GI symptoms/constipation. Has routine PSA checked due to hx of prostate cancer. Gets up once a night to urinate. GERD: Controlled with use of Protonix 40 mg once daily. HTN: Checking BP occ at home. Denies any chest pain, sob, or dizziness. Does follow with [facility], next appt in Mar. On current regimen of Lopressor 25 mg 1 tab po bid, Lasix 40 mg once daily, Losartan 100 mg 1.5 tabs po daily, Imdur 30 mg 1 tab po bid and Amiodarone 200 mg 0.5 tab daily. He has ring that he wears that monitors his heart rate, sleep patterns, etc. CKD: Monitoring through routine labs, was referred to Nephrology. Was to see them after his last visit. Edema: B/L foot and ankle edema, stable on current regimen of Lasix 40 mg 1 tab po prn. Has been advised by Cardio if swelling not improved can take extra 0.5 tab. has been giving pt an extra half tablet of Lasix as needed maybe 2 x a week. The swelling usually will go down at night if he has had the extra half pill. Elevates the head of the bed to sleep, denies any SOB at night when laying down. DM: No longer checking BS at home., might check occ with FBS usually in the 80s. Denies any hypoglycemic episodes. Does have chronic neuropathy, taking Gabapentin 300 mg 2 tabs at bedtime. Has previously seen Podiatry, Dr. Pleitez. On current regimen of Metformin 1,000 mg once daily and Glucotrol 10 mg daily. [facility]. Thyroid: Stable on current regimen of Pork Thyroid 60-65 mg 2 tabs daily. Has reported weight gain at previous visits, still going up. Denies any missed dosages. T PRAKASH: Uses CPAP nightly. Does well with CPAP. Receives supplies through [employer]. Takes Zquil at bedtime. Pain: Chronic neuropathy, RLS and Fibro. Sleep has been difficult due to his knee's bothering him. Overall pain is an issue that seems to keep him awake. Has been previously controlled on current regimen of Gabapentin 300 mg 2 caps at bedtime. Was taking 4 Gabapentin in the past, but trying to cut back on this. Uses Tylenol 2 tabs at bedtime as well. Past medical history, appointments, medications, allergies reviewed. Previous Medical History PAST MEDICAL HISTORY Diagnosis Date AAA (abdominal aortic aneurysm) (HCC) conflicting results Anxiety Bladder cancer (HCC) [address] Foreman BPH (benign prostatic hyperplasia) BPPV (benign paroxysmal positional vertigo) Carpal tunnel syndrome s/p release Central sleep apnea Coronary artery disease s/p CABG. Dr. Varela Diabetes mellitus, type II (HCC) Diabetic retinopathy (HCC) OU Diverticulosis Fibromyalgia Hard of hearing Hypertension Hypothyroidism Insomnia Left elbow fracture Lipoma of anterior chest wall s/p resection Myocardial infarction (HCC) x3 Obesity (BMI 30-39.9) PRAKASH (obstructive sleep apnea) on CPAP Pulmonary nodules conflicting studies Restless leg syndrome Rheumatoid arthritis (HCC) Trigger finger Previous Surgical History PAST SURGICAL HISTORY Procedure Laterality Date ARTHRP KNE CONDYLEANDPLATU MEDIALANDLAT COMPARTMENTS Bilateral x4 each CABG (3) VEIN GRAFTS AND ARTERIAL GRAFT(S) 2003 CARPAL TUNNEL Bilateral CHOLECYSTECTOMY open COLONOSCOPY 07/14/2021 No repeat due to age. COLONOSCOPY N/A 07/01/2022 EGD W/O [facility] SPEC VARICIES INJ 07/14/2021 EGD W/O [facility] SPEC VARICIES INJ N/A 07/01/2022 PAST SURGICAL HISTORY OF Left Reverse shoulder replacement PAST SURGICAL HISTORY OF Bilateral rotator cuff tear repair PAST SURGICAL HISTORY OF Left elbow fracture repair PAST SURGICAL HISTORY OF Right elbow-bone chip repair PAST SURGICAL HISTORY OF Left trigger finger release PAST SURGICAL HISTORY OF Left tumor resection from rib PAST SURGICAL HISTORY OF prostate surgery PAST SURGICAL HISTORY OF 03/08/2019 TURP, diagnostic cysto Family History FAMILY HISTORY Problem Relation Age of Onset Psychiatry Mother suicide Psychiatry Father suicide Heart Attack Sister Diabetes Brother type I other (celiac disease) Brothe (more content not included)...[facility]09-23-2024 Telephone encounter Note* Telephone Encounter - Kamari Melendez APRN.CNP - 01/10/2024 10:04 AM EDT The following approved medication requests have been transmitted electronically. Requested Prescriptions Pending Prescriptions Disp Refills gabapentin (NEURONTIN) 300 mg capsule 180 capsule 1 Sig: Take 1 capsule by mouth two times a day for 180 days. Kamari Melendez APRN.CNP [facility]09-23-2024 Miscellaneous Notes* Telephone Encounter - Kamari Melendez APRN.CNP - 01/10/2024 10:04 AM EDT The following approved medication requests have been transmitted electronically. Requested Prescriptions Pending Prescriptions Disp Refills gabapentin (NEURONTIN) 300 mg capsule 180 capsule 1 Sig: Take 1 capsule by mouth two times a day for 180 days. Kamari Melendez APRN.CNP * Telephone Encounter - Yesenia Hagan LPN - 01/10/2024 8:22 AM EDT Prescription Refill Information The patient has been identified by name and date of : Yes Caregiver verified no other encounters exist for this prescription request: Yes Caregiver confirmed with patient/requestor that no other refills are due, in the near future, with this provider at this time: Yes The last office visit in the department: 07/30/23 Does the patient have a future office visit with this provider/department: Yes 02/01/24 Requested Prescriptions Pending Prescriptions Disp Refills gabapentin (NEURONTIN) 300 mg capsule 180 capsule 1 Sig: Take 1 capsule by mouth two times a day for 180 days. Yesenia Hagan LPN January 10, 2024 8:22 AM documented in [facility]Ad[facility] Telephone encounter Note * Telephone Encounter - Yesenia Hagan LPN - 01/10/2024 8:22 AM EDT Prescription Refill Information The patient has been identified by name and date of : Yes Caregiver verified no other encounters exist for this prescription request: Yes Caregiver confirmed with patient/requestor that no other refills are due, in the near future, with this provider at this time: Yes The last office visit in the department: 07/30/23 Does the patient have a future office visit with this provider/department: Yes 02/01/24 Requested Prescriptions Pending Prescriptions Disp Refills gabapentin (NEURONTIN) 300 mg capsule 180 capsule 1 Sig: Take 1 capsule by mouth two times a day for 180 days. Yesenia Hagan LPN January 10, 2024 8:22 AM [facility]05-30-2024 Telephone encounter Note* Telephone Encounter - Joann Crum MA - 09/16/2023 1:25 PM EDT Form completed and faxed back with all requested documentation as requested. Joann Crum MA [facility]05-30-2024 Miscellaneous Notes* Telephone Encounter - Joann Crum MA - 09/16/2023 1:25 PM EDT Form completed and faxed back with all requested documentation as requested. Joann Crum MA * Telephone Encounter - Joann Crum MA - 09/16/2023 1:24 PM EDT Type of form: Medical Necessity - updated Rx for Pap supplies from [employer] Form received via fax When form is completed, Fax form to [phone] Form has been forwarded to Physician Desk: Dr. Marlene Crum MA documented in this encounterAd[facility]05-[facility]24 Telephone encounter Note * Telephone Encounter - Joann Crum MA - 09/16/2023 1:24 PM EDT Type of form: Medical Necessity - updated Rx for Pap supplies from [employer] Form received via fax When form is completed, Fax form to [phone] Form has been forwarded to Physician Desk: Dr. Marlene Crum MA [facility]04-12-2024 History of Present illness Narrative* Allan Rosario MD - 07/30/2023 8:00 AM EDT Chief Complaint Patient presents with: F/U 6 Month HPI Aza H Lizzy is a 73 year old male who presents here today for a 6 month follow up. Pt here today for his routine follow up. Here with his . [facility] Has vision and hearing testing. Wears hearing aids. Has Granddaughter who's currently in Track at [facility]. GI/Uro - Denies any stomach, bowel or urinary issues. Does see Gastro (Dr. Reyes) and Urology (). Eats prunes daily in the morning. Taking Miralax, Benefiber and Gas-X. Does get up at night to urinate. PSA checked routinely due to hx of prostate cancer. GERD - Stable with use of Protonix 40 mg once daily. HTN/CKD - Check BP occasionally at home. Denies any chest pain, sob, or dizziness. [facility] On current regimen of Lopressor 25 mg 1 tab po bid, Lasix 40 mg once daily, Losartan 100 mg 1.5 tabs po daily, Imdur 30 mg 1 tab po bid and Amiodarone 200 mg 0.5 tab daily. Monitoring through labs, was referred to Nephrology and has an upcoming appt scheduling with them soon. Edema - B/L foot and ankle edema. Stable on current regimen of Lasix 40 mg 1 tab po prn. Has been advised by Cardio if swelling not improved can take extra 0.5 tab. Believes his weight gain is related to retaining fluids. DM - Checking sugars once daily occasionally. FBS around mid 80's. Denies any hypoglycemic episodes. Does have chronic neuropathy, taking Gabapentin 300 mg 2 tabs at bedtime. Has previously seen Podiatry, Dr. Pleitez. On current regimen of Metformin 1,000 mg once daily and Glucotrol 10 mg daily. [facility]. Thyroid - Stable on current regimen of Pork Thyroid 60-65 mg 2 tabs daily. Has reported weight gainat previous visits, still going up. Denies any missed dosages. Tried the Keto gummies that Lois Argueta used to lose weight, but these did not help them. PRAKASH - Uses CPAP nightly. Does well with CPAP. Receives supplies through [employer]. Takes Zquil at bedtime. Now having issues with sleeping again. Will sleep for an hour then gets up and walks the house until he's tired. Does this couple times a night. Is restless, flops around in bed. Checks O2 level at home daily, this has been stable. Pain - Chronic neuropathy, RLS and Fibro. Sleep has been difficult due to his knee's bothering him.Overall pain is an issue that seems to keep him awake. Has been previously controlled on current regimen of Gabapentin 300 mg 2 caps at bedtime. Was taking 4 Gabapentin in the past, but trying to cutback on this. Uses Tylenol 2 tabs at bedtime as well. HM - Tdap not covered by insurance. Shingles/RSV through Pharmacy due to Medicare. Adv Dir/Living Will scanned into chart. Behavioral Health Screening completed. [facility]. Past medical history, appointments, medications, allergies reviewed. Previous Medical History PAST MEDICAL HISTORY Diagnosis Date AAA (abdominal aortic aneurysm) (HCC) conflicting results Anxiety Bladder cancer ([facility]) [address] Foreman BPH (benign prostatic hyperplasia) BPPV (benign paroxysmal positional vertigo) Carpal tunnel syndrome s/p release Central sleep apnea Coronary artery disease s/p CABG. Dr. Varela Diabetes mellitus, type II (HCC) Diabetic retinopathy (HCC) OU Diverticulosis Fibromyalgia Hard of hearing Hypertension Hypothyroidism Insomnia Left elbow fracture Lipoma of anterior chest wall s/p resection Myocardial infarction (HCC) x3 Obesity (BMI 30-39.9) PRAKASH (obstructive sleep apnea) on CPAP Pulmonary nodules conflicting studies Restless leg syndrome Rheumatoid arthritis (HCC) Trigger finger Previous Surgical History PAST SURGICAL HISTORY Procedure Laterality Date ARTHRP KNE CONDYLE&PLATU MEDIAL&LAT COMPARTMENTS Bilateral x4 each CABG (3) VEIN GRAFTS & ARTERIAL GRAFT(S) 2004 CARPAL TUNNEL Bilateral CHOLECYSTECTOMY open COLONOSCOPY 07/14/2021 No repeat due to age. COLONOSCOPY N/A 07/01/2022 EGD W/O [facility] SPEC VARICIES INJ 07/14/2021 EGD W/O [facility] SPEC VARICIES INJ N/A 07/01/2022 PAST SURGICAL HISTORY OF Left Reverse shoulder replacement PAST SURGICAL HISTORY OF Bilateral rotator cuff tear repair PAST SURGICAL HISTORY OF Left elbow fracture repair PAST SURGICAL HISTORY OF Right elbow-bone chip repair PAST SURGICAL HISTORY OF Left trigger finger release PAST SURGICAL HISTORY OF Left tumor resection from rib PAST SURGICAL HISTORY OF prostate surgery PAST SURGICAL HISTORY OF 03/08/2019 TURP, diagnostic cysto Family History FAMILY HISTORY Problem Relation Age of Onset Psychiatry Mother suicide Psychiatry Father suicide Heart Attack Sister Diabetes Brother type I other (celiac disease) Brother Alcohol/Drug Brother Blood Clots Brother Alzheimer's Disease Brother Heart disease Brother other (Pulmonday disease) Brother No Known Problems Brother No Known Problems Maternal Grandmother No Known Problems Maternal Grandfather No Known Problems Paternal Grandmother No Known Problems Paternal Grandfather Patient Allergies ALLERGIES Allergen Reactions Amlodipine Rash, Swelling Hctz [Hydrochloroth* Other: See Comments hyponatremia Lasix [Furosemide] Other: See Comments Liothyronine Other: See Comments Mouth sores Morphine Other: See Comments sick Odjzekk-Kqj-Jje Red* Other: See Comments Mouth sores. Failed multiple statins Sulfa (Sulfonamide * Other: See Comments Mouth sores Synthroid [Levothyr* Other: See Comments Mouth sores. BRAND caused Diarrhea Current Medications Current Outpatient Medications on File Prior to Visit Medication Sig amLODIPine (NORVASC) 10 mg tablet Take 1 tablet by mouth once daily. glipiZIDE (GLUCOTROL) 10 mg tablet Take 1 tablet (10 mg) by mouth once daily. gabapentin (NEURONTIN) 300 mg capsule Take 1 capsule by mouth two times a day for 180 days. furosemide (LASIX) 40 mg tablet Take 1 tablet by mouth once daily. pantoprazole DR (PROTONIX) 40 mg tablet Take 1 tablet by mouth daily before breakfast. Take on empty stomach, 1/2 hr before meal. metFORMIN (GLUCOPHAGE) 1,000 mg tablet Take 1 tablet by mouth daily with dinner. losartan (COZAAR) 100 mg tablet Take 1.5 tablets by mouth once daily. metoprolol tartrate, short acting, (LOPRESSOR) 25 mg tablet Take 1 tablet by mouth two times a day. isosorbide mononitrate ER (IMDUR) 30 mg 24 hr tablet Take 1 tablet by mouth two times a day. amiodarone (PACERONE) 200 mg tablet Taking 0.5 tab at bedtime ARMOUR THYROID 60 mg tablet Take 2 pills five days a week and 1 pill two days a week. CPAP Initiate CPAP @ 12 cm of water with humidification. Mask (per patient preference) optional chin strap (if indicated) , filters, tubing, humidifier and lifetime supplies. polyethylene glycol 3350 (MIRALAX) 17 gram/dose powder Take 289 g by mouth once daily. Dissolve dose in 4 - 8 ounces of liquid and take as directed. acetaminophen (TYLENOL) 325 mg tablet 650 mg every 4 hours as needed. aspirin, enteric coated (ASPIRIN, ENTERIC COATED) 81 mg EC tablet Take 81 mg by mouth once daily. cholecalciferol (VITAMIN D-3) 5,000 unit tab Take 5,000 Units by mouth once daily. cyanocobalamin, vitamin B-12, (VITAMIN B-12 ORAL) Take by mouth once daily. 2000 mg No current facility-administered medications on file prior to visit. Social History Social History Tobacco Use Smoking status: Former Types: Cigarettes Quit date: 06/29/1966 Years since quittin.1 Smokeless tobacco: Never Tobacco comments: when he was 15 years old Vaping Use Vaping Use: Never used Substance Use Topics Alcohol use: Yes Comment: rare Drug use: No EXAM: BP 118/70 (BP Site: Left Arm, BP Position: Sitting, BP Cuff Size: Large Adult) Pulse (!) 54 Resp 18 Wt 103.9 kg (229 lb) BMI 34.82 kg/m General Appearance: Well appearing, alert, in no acute distress, well-hydrated, well nourished. andObese. Lungs: Lungs clear to auscultation. No wheezing, rhonchi, rales.. Heart: RRR without murmur, gallop, or rubs. No ectopy. Extremities: Edema: None note on exam bilaterally. Health Maintenance List Abdominal Aortic Aneurysm Screening Never done Shingrix Vaccine(1 of 2) Never done RSV Vaccine(1 - 1-dose 60+ series) Never done Diabetic Foot Exam due on 04/24/2020 Dilated Retinal Exam due on 09/18/2021 DTaP,Tdap,Td Vaccine(2 - Tdap) due on 02/01/2023 Advance Directive Discussion due on 04/19/2023 Behavioral Health Screening Never done Covid-19 Vaccine( - 2022- season) due on 01/30/2024 Influenza Vaccine(Season Ended) due on 12/19/2023 HbA1C due on 01/26/2024 Annual PCP Team Chronic Disease Visit due on 01/30/2024 BP Controlled (<130/80) due on 01/30/2024 Urine Albumin:Creatinine Ratio due on 07/26/2024 LDL Cholesterol due on 07/26/2024 Serum Creatinine due on 07/26/2024 Hemoglobin/Hematocrit due on 07/26/2024 Colorectal Cancer Screening due on 07/14/2026 Hepatitis C Screening Completed Pneumococcal Vaccine: 65+ Completed HPV Vaccine Aged Out Data reviewed Appointment on 07/27/2023 Component Date Value Cholesterol, Total 07/27/2023 217 (H) Triglyceride 07/27/2023 237 (H) HDL Cholesterol 07/27/2023 33 (L) Non HDL Cholesterol 07/27/2023 184 (H) Fasting Time 07/27/2023 13 VLDL Cholesterol 07/27/2023 47 (H) TC:HDL Ratio 07/27/2023 6.58 (H) LDL Cholesterol 07/27/2023 137 (H) LDL:HDL Ratio 07/27/2023 4.15 (H) Protein, Total 07/27/2023 7.3 Albumin 07/27/2023 4.4 Calcium, Total 07/27/2023 9.9 Bilirubin, Total 07/27/2023 0.4 Alkaline Phosphatase 07/27/2023 66 AST 07/27/2023 28 ALT 07/27/2023 18 Glucose 07/27/2023 99 BUN 07/27/2023 20 Creatinine 07/27/2023 1.74 (H) Sodium 07/27/2023 139 Potassium 07/27/2023 4.8 Chloride 07/27/2023 102 CO2 07/27/2023 27 Anion Gap 07/27/2023 10 Estimated Glomerular Michael* 07/27/2023 41 (L) TSH 07/27/2023 1.350 Hemoglobin A1C 07/27/2023 6.6 (H) Estimated Average Glucose 07/27/2023 143 WBC 07/27/2023 4.59 RBC 07/27/2023 4.00 (L) Hemoglobin 07/27/2023 11.8 (L) Hematocrit 07/27/2023 36.7 (L) MCV 07/27/2023 91.8 MCH 07/27/2023 29.5 MCHC 07/27/2023 32.2 RDW-CV 07/27/2023 14.4 Platelet Count 07/27/2023 232 MPV 07/27/2023 10.2 Neutrophils % 07/27/2023 50.5 Abs Neut 07/27/2023 2.32 Lymphocytes % 07/27/2023 35.5 Abs Lymph 07/27/2023 1.63 Monocytes % 07/27/2023 12.0 Abs Cottle 07/27/2023 0.55 Eosinophils % 07/27/2023 1.3 Abs Eosin 07/27/2023 0.06 Basophils % 07/27/2023 0.7 Abs Baso 07/27/2023 0.03 Immature Granulocytes % 07/27/2023 0.0 Abs Immature Gran 07/27/2023 <0.03 NRBC 07/27/2023 0.0 Absolute nRBC 07/27/2023 <0.01 Diff Type 07/27/2023 Auto Creatinine, Ur Random (U* 07/27/2023 129.0 Albumin, Urine Random 07/27/2023 69.1 Albumin/Creat Ratio 07/27/2023 54 (H) ASSESSMENT/PLAN: 1. Type 2 diabetes mellitus with diabetic neuropathy, without long-term current use of insulin (HCC) - ICD9: 250.60, 357.2, ICD10: E11.40 (primary diagnosis) - Controlled - Continue current medications - Counseled on healthy diet and regular exercise - COMPREHENSIVE METABOLIC PANEL - LIPID PANEL BASIC - HEMOGLOBIN A1C 2. Essential hypertension - ICD9: 401.9, ICD10: I10 - Controlled - Continue current medications - Recommend home blood pressure monitoring, to bring results to next visit - Encouraged sodium restriction, DASH or Mediterranean diet - Recommend regular aerobic exercise - COMPREHENSIVE METABOLIC PANEL - LIPID PANEL BASIC - COMPLETE BLOOD COUNT AND DIFFERENTIAL 3. Mixed hyperlipidemia - ICD9: 272.2, ICD10: E78.2 - Controlled - Continue current medications - Counseled on healthy diet and regular exercise - COMPREHENSIVE METABOLIC PANEL - LIPID PANEL BASIC 4. Acquired hypothyroidism - ICD9: 244.9, ICD10: E03.9 - Instructed patient on importance of taking on an empty stomach either first thing in the morning or at bedtime. - Check labs in 6 months - Continue current medication regimen. - THYROID STIMULATING HORMONE 5. Fibromyalgia - ICD9: 729.1, ICD10: M79.7 - Continue current medication regimen. 6. RLS (restless legs syndrome) - ICD9: 333.94, ICD10: G25.81 - Continue current medication regimen. 7. Neuropathy - ICD9: 355.9, ICD10: G62.9 - Continue current medication regimen. 8. PRAKASH (obstructive sleep apnea) - ICD9: 327.23, ICD10: G47.33 - Discussed no medications to help with staying asleep. - Continue using CPAP 9. Gastroesophageal reflux disease with esophagitis without hemorrhage - ICD9: 530.81, 530.10, ICD10: K21.00 - Continue current medication regimen. 10. Generalized abdominal pain - ICD9: 789.07, ICD10: R10.84 - Continue current medication regimen. 11. Benign prostatic hyperplasia, unspecified whether lower urinary tract symptoms present - ICD9: 600.00, ICD10: N40.0 Continue current medication regimen. 12. Anemia, unspecified type - ICD9: 285.9, ICD10: D64.9 - Cont to monitor 13. Chronic kidney disease, stage 3a (HCC) - ICD9: 585.3, ICD10: N18.31 - Monitor through labs - follow up with Nephrology as recommended. 6 mo f/u with labs. I agree with the Chief Complaint, ROS, and Past Histories independently gathered by the clinical production support consultant and the remaining scribed note accurately describes my personal service to the patient. Medical Decision Making: Problems: Moderate: 2+ stable chronic illnesses Data: Unique test result(s) reviewed: 3+ Unique test(s) ordered: 3+ Risk: Moderate: Drug management Medical Decision Making Level: 4 - Moderate Allan Rosario MD The documentation for this note was completed by Joann Crum MA acting as scribe for Allan Rosario MD. July 30, 2023 8:16 AM. Joann Crum MA documented in this encounterAd[facility]12-04-2023 Miscellaneous Notes* Telephone Encounter - Kamari Melendez APRN.CROCHET BEADER - 03/22/2023 10:03 AM EST The following approved medication requests have been transmitted electronically. Requested Prescriptions Pending Prescriptions Disp Refills amLODIPine (NORVASC) 10 mg tablet 90 tablet 3 Sig: Take 1 tablet by mouth once daily. glipiZIDE (GLUCOTROL) 10 mg tablet 90 tablet 3 Sig: Take 1 tablet by mouth once daily. gabapentin (NEURONTIN) 300 mg capsule 180 capsule 1 Sig: Take 1 capsule by mouth two times a day for 180 days. Kamari Melendez APRN.CROCHET BEADER * Telephone Encounter - Shefali Ventura MA - 03/22/2023 9:03 AM EST Patient has been identified by name and date of : Yes Requested Prescriptions Pending Prescriptions Disp Refills amLODIPine (NORVASC) 10 mg tablet 90 tablet 3 Sig: Take 1 tablet by mouth once daily. glipiZIDE (GLUCOTROL) 10 mg tablet 90 tablet 3 Sig: Take 1 tablet by mouth once daily. gabapentin (NEURONTIN) 300 mg capsule 180 capsule 1 Sig: Take 1 capsule by mouth two times a day for 180 days. RX INSTRUCTIONS: Patient aware RX will be sent to pharmacy. No need to notify patient. Shefali Ventura MA [place] 01/2023 Nov 07/2023 Last refill; 04/2022 documented in this encounterAdams [facility]11-06-2023 Miscellaneous Notes* Telephone Encounter - Tory Banks Ma - 02/22/2023 2:35 PM EST Detailed message left notifying pt that forms were ready at medical records for pharmacy picking technician. Tory Banks Ma * Telephone Encounter - Allan Rosario MD - 02/22/2023 1:59 PM EST Parking Rx printed Allan Rosario MD * Telephone Encounter - Tory Banks Ma - 02/22/2023 11:16 AM EST Type of letter/form/fax request - [facility] Form-Eligibility for accessible license plates Form received from pt on 1 floor and placed on MD desk (Dr. Luna) for completion. Completed form needs to be left at front end engineer for patient pickup. CALL PT WHEN READY FOR CARPET LAYER HELPER Route to [place] when form completed for processing documented in this encounterAdams [facility] Hospital10-13-2023 History of Present illness Narrative* Allan Rosario MD - 01/29/2023 8:00 AM EDT Chief Complaint Patient presents with: 6 Month Exam HPI Salome Sheth is a 72 year old male who presents here today for 6 month follow up. Here with . [facility]. Has hearing aids. Declined Covid vaccine. He is not able to drink alcohol any more, he states he enjoyed drinking. He drinks a few drinks when he hasn't sleep good in several weeks. He states he drinks abut 3 crowns and feel she slept better. No bowel, Gi, or urinary issues, follows with Gastro and Urology. Taking Miralax, benefiber and Gax-x daily. He eats prunes daily in the AM. He has a bm daily. Following with Gastro, Dr. Reyes. Has not had any gi attacks since taking Gas-x every night. Getting up at night to urinate. PSA being checked regularly. Follows with Urologist, Dr. Foreman. GERD: Doing well on Protonix 40 mg daily[address] with [address]. Reyes. HTN: Checking BP at home about once a month with reading of 130/80 range or lower, HR around 68. Nochest pains, dizziness, or SOB. Following with Cardio at [facility]. Taking Lopressor 25 mg BID, Lasix 40 mg daily, Losartan 100 mg 1.5 tablets daily, Imdur 30 mg BID, and Amiodarone 200 mg half pill daily. Edema: Swelling bilateral feet and ankles are controlled with PRN Lasix 40 mg, if swelling is not improving was advised by Cardio to take an extra half pill. Has only needed the extra half once. PRAKASH: Using CPAP, supplies through [employer]. Taking Zzzquil at bedtime. Checking oxygen level at home daily, usually when waking up is 93, but goes up with deep breaths to 97. Pain: Hx of neuropathy, RLS, and Fibro. Doing well on Gabapentin 300 mg 2 pills at bedtime. Uses Tylenol 2 tablets at bedtime. DM: Checking BS once daily with FBS 90. Denies any hypoglycemic episodes, might have had one low inthe past 6 months. Taking Metformin 1,000 mg daily and Glucotrol 10 mg daily. Follows with [facility] Dr. Pleitez. He states he is still gaining weight. [facility]. He has prunes every morning and then eats one meal a day around 2 pm. Thryoid: Taking Pork Thyroid 60-65 mg 2 pills daily. States he is still gaining weight, weight is same as last visit in July. Past medical history, appointments, medications, allergies reviewed. Previous Medical History PAST MEDICAL HISTORY Diagnosis Date AAA (abdominal aortic aneurysm) ([facility]) conflicting results Anxiety Bladder cancer ([facility]) [address] Foreman BPH (benign prostatic hyperplasia) BPPV (benign paroxysmal positional vertigo) Carpal tunnel syndrome s/p release Central sleep apnea Coronary artery disease s/p CABG. Dr. Varela Diabetes mellitus, type II (HCC) Diabetic retinopathy (HCC) OU Diverticulosis Fibromyalgia Hard of hearing Hypertension Hypothyroidism Insomnia Left elbow fracture Lipoma of anterior chest wall s/p resection Myocardial infarction (HCC) x3 Obesity (BMI 30-39.9) PRAKASH (obstructive sleep apnea) on CPAP Pulmonary nodules conflicting studies Restless leg syndrome Rheumatoid arthritis (HCC) Trigger finger Previous Surgical History PAST SURGICAL HISTORY Procedure Laterality Date ARTHRP KNE CONDYLE&PLATU MEDIAL&LAT COMPARTMENTS Bilateral x4 each CABG (3) VEIN GRAFTS & ARTERIAL GRAFT(S) 2004 CARPAL TUNNEL Bilateral CHOLECYSTECTOMY open COLONOSCOPY 07/14/2021 No repeat due to age. COLONOSCOPY N/A 07/01/2022 EGD W/O [facility] SPEC VARICIES INJ 07/14/2021 EGD W/O [facility] SPEC VARICIES INJ N/A 07/01/2022 PAST SURGICAL HISTORY OF Left Reverse shoulder replacement PAST SURGICAL HISTORY OF Bilateral rotator cuff tear repair PAST SURGICAL HISTORY OF Left elbow fracture repair PAST SURGICAL HISTORY OF Right elbow-bone chip repair PAST SURGICAL HISTORY OF Left trigger finger release PAST SURGICAL HISTORY OF Left tumor resection from rib PAST SURGICAL HISTORY OF prostate surgery PAST SURGICAL HISTORY OF 03/08/2019 TURP, diagnostic cysto Family History FAMILY HISTORY Problem Relation Age of Onset Psychiatry Mother suicide Psychiatry Father suicide Heart Attack Sister Diabetes Brother type I other (celiac disease) Brother Alcohol/Drug Brother Blood Clots Brother Alzheimer's Disease Brother Heart disease Brother other (Pulmonday disease) Brother No Known Problems Brother No Known Problems Maternal Grandmother No Known Problems Maternal Grandfather No Known Problems Paternal Grandmother No Known Problems Paternal Grandfather Patient Allergies ALLERGIES Allergen Reactions Amlodipine Rash, Swelling Hctz [Hydrochloroth* Other: See Comments hyponatremia Lasix [Furosemide] Other: See Comments Liothyronine Other: See Comments Mouth sores Morphine Other: See Comments sick Zqwcyhf-Hhr-Nhe Red* Other: See Comments Mouth sores. Failed multiple statins Sulfa (Sulfonamide * Other: See Comments Mouth sores Synthroid [Levothyr* Other: See Comments Mouth sores. BRAND caused Diarrhea Current Medications Current Outpatient Medications on File Prior to Visit Medication Sig furosemide (LASIX) 40 mg tablet TAKE 1 TABLET ONCE DAILY. gabapentin (NEURONTIN) 300 mg capsule Take 1 capsule by mouth twice daily for [address] (PROTONIX) 40 mg tablet Take 1 tablet by mouth daily before breakfast. Take on empty stomach, 1/2 hr before meal. metFORMIN (GLUCOPHAGE) 1,000 mg tablet Take 1 tablet by mouth daily with dinner. losartan (COZAAR) 100 mg tablet Take 1.5 tablets by mouth once daily. metoprolol tartrate, short acting, (LOPRESSOR) 25 mg tablet Take 1 tablet by mouth twice daily. isosorbide mononitrate ER (IMDUR) 30 mg 24 hr tablet Take 1 tablet by mouth twice daily. amiodarone (PACERONE) 200 mg tablet Taking 0.5 tab at bedtime glipiZIDE (GLUCOTROL) 10 mg tablet Take 1 tablet by mouth once daily. amLODIPine (NORVASC) 10 mg tablet Take 1 tablet by mouth once daily. CPAP Initiate CPAP @ 12 cm of water with humidification. Mask (per patient preference) optional chin strap (if indicated) , filters, tubing, humidifier and lifetime supplies. ARMOUR THYROID 60 mg tablet Take 2 pills five days a week and 1 pill two days a week. polyethylene glycol 3350 (MIRALAX) 17 gram/dose powder Take 289 g by mouth once daily. Dissolve dose in 4 - 8 ounces of liquid and take as directed. acetaminophen (TYLENOL) 325 mg tablet 650 mg every 4 hours as needed. aspirin, enteric coated (ASPIRIN, ENTERIC COATED) 81 mg EC tablet Take 81 mg by mouth once daily. cholecalciferol (VITAMIN D-3) 5,000 unit tab Take 5,000 Units by mouth once daily. cyanocobalamin, vitamin B-12, (VITAMIN B-12 ORAL) Take by mouth once daily. 2000 mg No current facility-administered medications on file prior to visit. Social History Social History Tobacco Use Smoking status: Former Types: Cigarettes Quit date: 06/29/1966 Years since quittin.6 Smokeless tobacco: Never Tobacco comments: when he was 15 years old Vaping Use Vaping Use: Never used Substance Use Topics Alcohol use: Yes Comment: rare Drug use: No EXAM: BP 128/72 Pulse 68 Resp 16 Wt 102.7 kg (226 lb 8 oz) BMI 34.44 kg/m General Appearance: Well appearing, alert, in no acute distress, well-hydrated, well nourished. andOverweight. Lungs: Lungs clear to auscultation. No wheezing, rhonchi, rales.. Heart: RRR without murmur, gallop, or rubs. No ectopy. Extremities: minimal edema. Health Maintenance List Abdominal Aortic Aneurysm Screening Never done Covid-19 Vaccine(1) Never done Shingrix Vaccine(1 of 2) Never done Hepatitis B Vaccine(1 of 3 - Risk 3-dose series) Never done Diabetic Foot Exam due on 04/24/2020 Dilated Retinal Exam due on 09/18/2021 Depression Assessment due on 04/19/2022 DTaP,Tdap,Td Vaccine(2 - Tdap) due on 02/01/2023 Influenza Vaccine(1) due on 05/27/2023 HbA1C due on 01/30/2023 Annual PCP Team Chronic Disease Visit due on 07/31/2023 BP Controlled (<130/80) due on 07/31/2023 Urine Albumin:Creatinine Ratio due on 08/01/2023 LDL Cholesterol due on 08/01/2023 Colorectal Cancer Screening due on 07/14/2026 Advance Directive Discussion Completed Hepatitis C Screening Completed Pneumococcal Vaccine: 65+ Completed HPV Vaccine Aged Out Data reviewed Appointment on 01/27/2023 Component Date Value Protein, Total 01/27/2023 7.3 Albumin 01/27/2023 4.5 Calcium, Total 01/27/2023 9.8 Bilirubin, Total 01/27/2023 0.3 Alkaline Phosphatase 01/27/2023 70 AST 01/27/2023 20 ALT 01/27/2023 15 Glucose 01/27/2023 94 BUN 01/27/2023 20 Creatinine 01/27/2023 1.54 (H) Sodium 01/27/2023 139 Potassium 01/27/2023 4.1 Chloride 01/27/2023 102 CO2 01/27/2023 27 Anion Gap 01/27/2023 10 Estimated Glomerular Michael* 01/27/2023 47 (L) Cholesterol, Total 01/27/2023 199 Triglyceride 01/27/2023 205 (H) HDL Cholesterol 01/27/2023 33 (L) Non HDL Cholesterol 01/27/2023 166 (H) Fasting Time 01/27/2023 13 VLDL Cholesterol 01/27/2023 41 (H) TC:HDL Ratio 01/27/2023 6.03 (H) LDL Cholesterol 01/27/2023 125 (H) LDL:HDL Ratio 01/27/2023 3.79 (H) Hemoglobin A1C 01/27/2023 6.5 (H) Estimated Average Glucose 01/27/2023 140 WBC 01/27/2023 5.14 RBC 01/27/2023 3.99 (L) Hemoglobin 01/27/2023 11.7 (L) Hematocrit 01/27/2023 35.6 (L) MCV 01/27/2023 89.2 MCH 01/27/2023 29.3 MCHC 01/27/2023 32.9 RDW-CV 01/27/2023 14.5 Platelet Count 01/27/2023 208 MPV 01/27/2023 10.4 Absolute nRBC 01/27/2023 <0.01 Appointment on 01/01/2023 Component Date Value TSH 01/01/2023 2.650 ASSESSMENT/PLAN: 1. Type 2 diabetes mellitus with diabetic neuropathy, without long-term current use of insulin (HCC) - ICD9: 250.60, 357.2, ICD10: E11.40 (primary diagnosis) - Controlled - Continue current medications - Counseled on healthy diet and regular exercise - Discussed need for and benefit of weight loss. BMI 34.44 kg/(m^2) 2. Fibromyalgia - ICD9: 729.1, ICD10: M79.7 Continue current medications. 3. RLS (restless legs syndrome) - ICD9: 333.94, ICD10: G25.81 Continue current medications. 4. Neuropathy - ICD9: 355.9, ICD10: G62.9 Continue current medications. 5. Essential hypertension - ICD9: 401.9, ICD10: I10 - Controlled - Continue current medications - Recommend home blood pressure monitoring, to bring results to next visit - Encouraged sodium restriction, DASH or Mediterranean diet - Recommend regular aerobic exercise - Discussed need for and benefit of weight loss. BMI 34.44 kg/(m^2) 6. Coronary artery disease involving [place] coronary artery of [place]ki[place] heart without angina pectoris- ICD9: 414.01, ICD10: I25.10 Continue current medications. Continue with Cardio at [facility] 7. Mixed hyperlipidemia - ICD9: 272.2, ICD10: E78.2 - Controlled - Continue current medications - Counseled on healthy diet and regular exercise - Discussed need for and benefit of weight loss. BMI 34.44 kg/(m^2) 8. Paroxysmal A-fib (HCC) - ICD9: 427.31, ICD10: I48.0 Continue current medications. 9. PRAKASH (obstructive sleep apnea) - ICD9: 327.23, ICD10: G47.33 Continue with machine 10. Malignant neoplasm of urinary bladder, unspecified site (HCC) - ICD9: 188.9, ICD10: C67.9 Continue with Urologist 11. Acquired hypothyroidism - ICD9: 244.9, ICD10: E03.9 - Instructed patient on importance of taking on an empty stomach either first thing in the morning or at bedtime. Stable Continue current medications. 12. Benign prostatic hyperplasia, unspecified whether lower urinary tract symptoms present - ICD9: 600.00, ICD10: N40.[address] Foreman 13. Anxiety - ICD9: 300.00, ICD10: F41.9 Stable Continue current medications. 14. Class 1 obesity due to excess calories with serious comorbidity and body mass index (BMI) of 34.0 to 34.9 in adult - ICD9: 278.00, V85.34, ICD10: E66.09, Z68.34 Stable Recommend healthy diet and exercise Follow up in 6 months with fasting labs and urine test prior. I agree with the Chief Complaint, ROS, and Past Histories independently gathered by the clinical production support consultant and the remaining scribed note accurately describes my personal service to the patient. Medical Decision Making: Problems: Moderate: 2+ stable chronic illnesses Data: Unique test result(s) reviewed: 3+ Unique test(s) ordered: 3+ Risk: Moderate: Drug management Medical Decision Making Level: 4 - Moderate Allan Rosario MD The documentation for this note was completed by Tory Banks Ma acting as scribe for Allan Rosario MD. January 29, 2023 8:07 AM. Tory Banks Ma documented in this encounterAd[facility]08-10-2023 Miscellaneous Notes* Telephone Encounter - Tory Banks Ma - 11/26/2022 10:16 AM EDT The following approved medication requests have been transmitted electronically. Requested Prescriptions Signed Prescriptions Disp Refills furosemide (LASIX) 40 mg tablet 90 tablet 3 Sig: TAKE 1 TABLET ONCE DAILY. Authorizing Provider: ALLAN ROSARIO Ma * Telephone Encounter - Allan Rosario MD - 11/26/2022 9:58 AM EDT OK to refill as ordered Allan Rosario MD * Telephone Encounter - Yesenia Hagan LPN - 11/25/2022 10:22 AM EDT Patient phones requesting refills as follows: Pharmacy comment: Patient has indicated to us that they are either allergic or sensitive to Loop diuretic, and you indicated on Rx allergy to Furosemide. There is possible cross-allergy. May we dispense? Please respond with appropriate changes or comment to Pharmacy. Patient has indicated to us that they are either allergic or sensitive to Loop diuretic, and you indicated on Rx allergy to Furosemide. There is possible cross-allergy. May we dispense? Please respond with appreciated. Requested Prescriptions Pending Prescriptions Disp Refills LASIX 40 mg tablet [Pharmacy Med Name: LASIX TAB 40MG] 3 Sig: TAKE 1 TABLET ONCE DAILY. Please review and advise. Yesenia Hagan LPN documented in this encounterAd[facility]06-12-2023 Miscellaneous Notes* Telephone Encounter - Allan Rosario MD - 09/28/2022 2:14 PM EDT OK to refill as ordered Allan Rosario MD documented in this encounterAd[facility]05-08-2023 Miscellaneous Notes* Telephone Encounter - Joann Crum Ma - 08/24/2022 8:04 AM EDT Last OV: 07/30/22 Next OV: 01/29/23 Last Rx: 07/24/21 #90 w/3. Joann Crum Ma documented in this encounterAdams [facility]04-13-2023 History of Present illness Narrative* Allan Rosario MD - 07/30/2022 8:40 AM EDT Chief Complaint Patient presents with: 6 Month Exam HPI Salome Sheth is a 72 year old male who presents here today for 6 month follow up. Here with his . Recent bout of vertigo; better now. Follows with GI and . Uses Miralax prn. Denies getting up at night to urinate. Recent PSA 0.89. GERD: Sx doing well on Protonix 40 mg daily. Has been following with Gastro Dr. Friend. He had scopes done recently; what looked like celiac but tested negative; adenomatous polyp in colon. Thyroid: Stable with Pork Thyroid 60-65 mg two tabs in the am. Pain: Hx of neuropathy, RLS and Fibro. Stable on current regimen of Gabapentin 300 mg 2 caps po at bedtime. DM: Checks BS once daily with FBS 80-140. Taking Metformin 1,000 mg daily and Glucotrol 10 mg daily. Low of 72. HTN: Checks BP occ at home with readings running around 136/68 to 136/70. Denies any chest pains, dizziness, or SOB. Follows with Cardio Dr. Lan at [facility]. Taking Amiodarone 200 mghalf pill daily, Imdur 30 mg BID, Losartan 100 mg 1.5 tablets daily, Lopressor 25 mg BID and Lasix 40 mg daily. PRAKASH: Using CPAP, getting supplies to [facility]. Past medical history, appointments, medications, allergies reviewed. Previous Medical History PAST MEDICAL HISTORY Diagnosis Date AAA (abdominal aortic aneurysm) (HCC) conflicting results Anxiety Bladder cancer (HCC) [address] Foreman BPH (benign prostatic hyperplasia) BPPV (benign paroxysmal positional vertigo) Carpal tunnel syndrome s/p release Central sleep apnea Coronary artery disease s/p CABG. Dr. Varela Diabetes mellitus, type II (HCC) Diabetic retinopathy (HCC) OU Diverticulosis Fibromyalgia Hard of hearing Hypertension Hypothyroidism Insomnia Left elbow fracture Lipoma of anterior chest wall s/p resection Myocardial infarction (HCC) x3 Obesity (BMI 30-39.9) PRAKSAH (obstructive sleep apnea) on CPAP Pulmonary nodules conflicting studies Restless leg syndrome Rheumatoid arthritis (HCC) Trigger finger Previous Surgical History PAST SURGICAL HISTORY Procedure Laterality Date ARTHRP KNE CONDYLE&PLATU MEDIAL&LAT COMPARTMENTS Bilateral x4 each CABG (3) VEIN GRAFTS & ARTERIAL GRAFT(S) 2003 CARPAL TUNNEL Bilateral CHOLECYSTECTOMY open COLONOSCOPY 07/14/2021 No repeat due to age. COLONOSCOPY N/A 07/01/2022 EGD W/O [facility] SPEC VARICIES INJ 07/14/2021 EGD W/O [facility] SPEC VARICIES INJ N/A 07/01/2022 PAST SURGICAL HISTORY OF Left Reverse shoulder replacement PAST SURGICAL HISTORY OF Bilateral rotator cuff tear repair PAST SURGICAL HISTORY OF Left elbow fracture repair PAST SURGICAL HISTORY OF Right elbow-bone chip repair PAST SURGICAL HISTORY OF Left trigger finger release PAST SURGICAL HISTORY OF Left tumor resection from rib PAST SURGICAL HISTORY OF prostate surgery PAST SURGICAL HISTORY OF 03/08/2019 TURP, diagnostic cysto Family History FAMILY HISTORY Problem Relation Age of Onset Psychiatry Mother suicide Psychiatry Father suicide Heart Attack Sister Diabetes Brother type I other (celiac disease) Brother Alcohol/Drug Brother Blood Clots Brother Alzheimer's Disease Brother Heart disease Brother other (Pulmonday disease) Brother No Known Problems Brother No Known Problems Maternal Grandmother No Known Problems Maternal Grandfather No Known Problems Paternal Grandmother No Known Problems Paternal Grandfather Patient Allergies ALLERGIES Allergen Reactions Amlodipine Rash, Swelling Hctz [Hydrochloroth* Other: See Comments hyponatremia Lasix [Furosemide] Other: See Comments Liothyronine Other: See Comments Mouth sores Morphine Other: See Comments sick Qlgcltw-Ssf-Uqh Red* Other: See Comments Mouth sores. Failed multiple statins Sulfa (Sulfonamide * Other: See Comments Mouth sores Synthroid [Levothyr* Other: See Comments Mouth sores. BRAND caused Diarrhea Current Medications Current Outpatient Medications on File Prior to Visit Medication Sig metFORMIN (GLUCOPHAGE) 1,000 mg tablet Take 1 tablet by mouth daily with dinner. losartan (COZAAR) 100 mg tablet Take 1.5 tablets by mouth once daily. metoprolol tartrate, short acting, (LOPRESSOR) 25 mg tablet Take 1 tablet by mouth twice daily. isosorbide mononitrate ER (IMDUR) 30 mg 24 hr tablet Take 1 tablet by mouth twice daily. amiodarone (PACERONE) 200 mg tablet Taking 0.5 tab at bedtime glipiZIDE (GLUCOTROL) 10 mg tablet Take 1 tablet by mouth once daily. amLODIPine (NORVASC) 10 mg tablet Take 1 tablet by mouth once daily. gabapentin (NEURONTIN) 300 mg capsule Take 1 capsule by mouth twice daily for 180 days. furosemide (LASIX) 40 mg tablet Take 1 tablet by mouth once daily. CPAP Initiate CPAP @ 12 cm of water with humidification. Mask (per patient preference) optional chin strap (if indicated) , filters, tubing, humidifier and lifetime supplies. ARMOUR THYROID 60 mg tablet Take 2 pills five days a week and 1 pill two days a week. pantoprazole DR (PROTONIX) 40 mg tablet Take 1 tablet by mouth daily before breakfast. Take on empty stomach, 1/2 hr before meal. polyethylene glycol 3350 (MIRALAX) 17 gram/dose powder Take 289 g by mouth once daily. Dissolve dose in 4 - 8 ounces of liquid and take as directed. acetaminophen (TYLENOL) 325 mg tablet 650 mg every 4 hours as needed. aspirin, enteric coated (ASPIRIN, ENTERIC COATED) 81 mg EC tablet Take 81 mg by mouth once daily. cholecalciferol (VITAMIN D-3) 5,000 unit tab Take 5,000 Units by mouth once daily. cyanocobalamin, vitamin B-12, (VITAMIN B-12 ORAL) Take by mouth once daily. 2000 mg No current facility-administered medications on file prior to visit. Social History Social History Tobacco Use Smoking status: Former Types: Cigarettes Quit date: 06/29/1966 Years since quittin.1 Smokeless tobacco: Never Tobacco comments: when he was 15 years old Vaping Use Vaping Use: Never used Substance Use Topics Alcohol use: Yes Comment: rare Drug use: No EXAM: BP 120/60 Pulse 64 Resp 18 Wt 102.9 kg (226 lb 12.8 oz) BMI 34.48 kg/m General Appearance: Well appearing, alert, in no acute distress, well-hydrated, well nourished.. Lungs: Lungs clear to auscultation. No wheezing, rhonchi, rales.. Heart: RRR without murmur, gallop, or rubs. No ectopy. Abdomen: Normal abdominal exam, minimal epigastric tenderness. Health Maintenance List ABDOMINAL AORTIC ANEURYSM SCREENING Never done COVID-19 VACCINE(1) Never done SHINGRIX VACCINE(1 of 2) Never done DIABETIC FOOT EXAM due on 04/24/2020 DILATED RETINAL EXAM due on 09/18/2021 ADVANCE DIRECTIVE DISCUSSION due on 04/19/2022 DEPRESSION ASSESSMENT due on 04/19/2022 URINE ALBUMIN:CREATININE RATIO due on 04/21/2022 HBA1C due on 07/16/2022 INFLUENZA(Season Ended) due on 12/18/2022 LDL CHOLESTEROL due on 01/16/2023 DTAP,TDAP,TD(2 - Tdap) due on 02/01/2023 ANNUAL PCP TEAM CHRONIC DISEASE VISIT due on 04/24/2023 BP CONTROLLED (<130/80) due on 04/24/2023 COLORECTAL CANCER SCREENING due on 07/14/2026 HEPATITIS C SCREENING Completed PNEUMOCOCCAL: 65+ Completed Data reviewed none ASSESSMENT/PLAN: 1. Type 2 diabetes mellitus with diabetic neuropathy, without long-term current use of insulin (HCC) - ICD9: 250.60, 357.2, ICD10: E11.40 (primary diagnosis) - Controlled - Continue current medications 2. Abdominal aortic aneurysm (AAA) without rupture, unspecified part (HCC) - ICD9: 441.4, ICD10: I71.40 3. Essential hypertension - ICD9: 401.9, ICD10: I10 - good control - Continue current medication(s) - Recommended regular aerobic exercise. - Recommend home blood pressure monitoring, to bring results in on next visit - Goal of BP <140/90 4. Mixed hyperlipidemia - ICD9: 272.2, ICD10: E78.2 - to be determined upon return of lab results - Continue current medication. 5. Coronary artery disease involving [place] coronary artery of [place] heart without angina pectoris- ICD9: 414.01, ICD10: I25.10 Stable Continue current medications. Follow with Cardiology 6. PRAKASH (obstructive sleep apnea) - ICD9: 327.23, ICD10: G47.33 Continue CPAP 7. Acquired hypothyroidism - ICD9: 244.9, ICD10: E03.9 - Instructed patient on importance of taking on an empty stomach either first thing in the morning or at bedtime. - continue current dose of thyroid He will get labs done; notify of results Follow up in 6 months I agree with the Chief Complaint, ROS, and Past Histories independently gathered by the clinical production support consultant and the remaining scribed note accurately describes my personal service to the patient. Medical Decision Making: Problems: Moderate: 2+ stable chronic illnesses Risk: Moderate: Drug management Medical Decision Making Level: 4 - Moderate Allan Rosario MD The documentation for this note was completed by Tory Banks Ma acting as scribe for Allan Rosario MD. July 30, 2022 8:37 AM. Tory Banks Ma documented in this encounterAdams [facility] Hospital03-15-2023 History and physical note Author Yoshi Friend [facility] July 01, 2022 8:59am Note Date/Time July 01, 2022 8:5 9am [facility] Medical Records Department [address] [place] [address] [place] [address] History & Physical Exam 07/01/22 0858 MR#: [id number] Acct: [id number] Name: SALOME SHETH Rep #:[id number] : 1950 72 From: Yoshi Friend PCP: Dr. Allan Rosario MD Status:[facility] Location: [place] [address] History and Physical Date of Admission: 07/01/22 SALOME SHETH, is a 72 M who presents to the office today to establish with GI for I get sick when I eat. Accompanied by his . They report he has symptoms in the evening (but not every evening), after eating, when he is relaxing or sitting on the toilet, he gets nausea, cold sweat, cough, stomachburning, tenesmus. No vomiting. He has early satiety. No particular foods are triggers. He takes on pantoprazole 40 mg daily for GERD but this doesn't help these symptoms. He gets some relief with mylanta, gas-x and tylenol. Denies heartburn, acid reflux, regurgitation. The epigastric burning sensation doesn't radiate through to the back or elsewhere. feels that the burning stomach and cough cause his BP to rise and then trigger CHF flare. These episodes have occurred on a regular basis for about 1.5 yrs but twice were much more severe, leading to ED visit and admissions to [facility]--those were in 10/2020 and 01/2022; I reviewed those records--he had markedly elevated BP, pulmonary edema, acute respiratory failure with hypoxia. He reports constipation, has tenesmus, strains to have BM, takes multiple treatment for constipation--miralax and benefiber daily, also 4 prunes daily, occas prune juice or OJ. He doesn't have formed stools, seems like his stools are always loose. No melena or hematochezia. His brother had celiac disease. Weight is stable. He was exposed to Agent [place] in [place]. Dr Patel has ordered MRI of the abd 12/2021 labs at [facility]: hgb a1c 6.5, creat 1.45, normal ast/alt/alk phos/bili 06/2021 EGD and colonoscopy by general surgeon at [facility]: EGD: scattered erythema instomach, nonsevere reflux esophagitis; bxs: reactive gastropathy, focal changes of reflux, negative Zhang's, negative H pylori; colonoscopy: diverticulosis, no specimens collected PMH includes: DM2, hyperlipidemia, neuropathy, ischemic cardiomyopathy, CAD, RA,atrial fibrillation, obesity, hx CA, RLS, sleep apnea, fibromyalgia, hypothyroidism, Agent [place] exposure, bladder cancer hx PSH includes cholecystectomy, CABG, TURP, TURBT ROS Const Constitutional: Positive for fatigue ENT ENT: No difficulty swallowing Cardio Cardiology: Positive for leg pain with exertion Gastro GI: Positive for abdominal pain, bloating, change in bowel habits, constipation,heartburn, excessive flatus and nausea/dyspepsia; No belching, change in stool character, coffee ground emesis, cramping, diarrhea, difficulty swallowing, feeling full early, incontinent of stools, Vomiting blood/hematemesis, Blood in stool, loose stools, Black,tarry stools, pain with swallowing, vomiting or other Musc Musculoskeletal: Positive for joint pain, back pain, muscle cramps, muscle weakness, stiffness, Arthritis, restless legs, leg pain at night and leg pain with exertion Skin Skin: No yellowing of the eye or itchy eyes Neuro Neurology: Positive for restless legs Psych Psychiatric: No anxiety and No depression Endo Endocrine: Positive for fatigue Aller/Imm Allergy/Immunologic: No itchy eyes Gopal/Lymp Hematologic/Lymphatic: No easy bleeding or easy bruising Exam Const General: cooperative and no acute distress Nutritional Appearance: obese Orientation: alert, awake and oriented x3 HENMT Head: normal to inspection Eyes Sclera: sclerae normal Resp Effort & Inspection: normal respiratory effort GI Palpation: soft, no hepatosplenomegaly, no masses and tender in the epigastrum Skin General: jaundice Psych Mood: congruent mood Quality Reporting Tobacco Screening ([facility] 138) Smoking Status: Never smoker Assessment and Plan Assessment and Plan (1) Epigastric pain: ?Status:?Chronic ?Plan: 72 yr old male with episodes of epigastric pain, nausea, cough, tenesmus that occur in the evenings, can be when he is relaxing after dinner or on the toilet.He reports constipation, treats with OTC, then typically has loose stools. Twicein 2021 he was admitted after having abdominal discomfort and nausea--admitting diagnoses were?markedly elevated BP, pulmonary edema, CHF, acute respiratory failure with hypoxia. No relief of his symptoms with PPI therapy. No cause for his symptoms found last yr with EGD and colonoscopy. His comorbidities include DM2, RA, Agent [place] exposure. DDx includes functional dyspepsia, GERD, bile acid reflux, gastroparesis, PUD, EPI. He also reports constipation, but has chronic loose stools, consider overflow diarrhea. Biochemical eval to include stool tests for inflammation, exocrine pancreatic insufficiency; blood tests for celiac, IBD, autoimmune, pancreas. Will check labs because of low hgb in 12 range. Gastric emptying study to eval for gastroparesis EGD and colonoscopy with office f/u 2 wks later Consider eval for pheochromocytoma (2) Early satiety: ?Status:?Chronic ?Plan: Gastric emptying study to evaluate for gastroparesis (3) Anemia: ?Status:?Acute ?Plan: Labs today Endoscopic eval (4) Constipation: ?Status:?Acute ?Plan: see above ? ? ? Orders: Orders Gastric Emptying Study Today R68.81 - Early satiety ? Comprehensive Metabolic Profil Today D64.9 - Anemia, unspecified, R10.13 - Epigastric pain, R68.81 - Early satiety ? CRP Today D64.9 - Anemia, unspecified, R10.13 - Epigastric pain, R68.81 - Early satiety ? CBC W/Diff, Automated Today D64.9 - Anemia, unspecified, R10.13 - Epigastric pain, R68.81 - Early satiety ? Erythrocyte Sed Rate Today D64.9 - Anemia, unspecified, R10.13 - Epigastric pain, R68.81 - Early satiety ? Celiac Disease Profile Today D64.9 - Anemia, unspecified, R10.13 - Epigastric pain, R68.81 - Early satiety ? Amylase Today D64.9 - Anemia, unspecified, R10.13 - Epigastric pain, R68.81 - Early satiety ? Ferritin Today D64.9 - Anemia, unspecified, I48.0 - Paroxysmal atrial fibrillation, R10.13 - Epigastric pain, R68.81 - Early satiety ? Iron+Iron Binding Capacity Today D64.9 - Anemia, unspecified, R10.13 - Epigastric pain, R68.81 - Early satiety ? LDH Today D64.9 - Anemia, unspecified, R10.13 - Epigastric pain, R68.81 - Early satiety ? Lipase Today D64.9 - Anemia, unspecified, R10.13 - Epigastric pain, R68.81 - Early satiety ? BRADEN Comprehensive Panel Today D64.9 - Anemia, unspecified, R10.13 - Epigastric pain, R68.81 - Early satiety ? ANCA Today D64.9 - Anemia, unspecified, R10.13 - Epigastric pain, R68.81 - Earlysatiety ? Immunoglobulins G/A/M/E Today D64.9 - Anemia, unspecified, R10.13 - Epigastric pain, R68.81 - Early satiety ? Gastrin, Serum Today D64.9 - Anemia, unspecified, R10.13 - Epigastric pain, R68.81 - Early satiety ? JERALD + Protein Elect, Serum Today D64.9 - Anemia, unspecified, R10.13 - Epigastric pain, R68.81 - Early satiety ? Miscellaneous Lab Procedure Today D64.9 - Anemia, unspecified, R10.13 - Epigastric pain, R53.83 - Other fatigue, R68.81 - Early satiety ? Calprotectin, Stool Today D64.9 - Anemia, unspecified, K59.00 - Constipation, unspecified ? Stool Lactoferrin/WBC Today D64.9 - Anemia, unspecified, K58.9 - Irritable bowelsyndrome without diarrhea, K59.00 - Constipation, unspecified ? Fecal Fat, Qualitative Today K59.00 - Constipation, unspecified, R10.13 - Epigastric pain ? Pancreatic Elastase, Fecal Today K59.00 - Constipation, unspecified, R10.13 - Epigastric pain I have examined the patient and the H&P has been reviewed. There are no clinicalchanges since date of exam. 07/01/22 0859 <Electronically signed by Yoshi Reyes DO> Cosigner Signature (if applicable): CC: Dr. Allan Rosario MD; Yoshi Reyes DO~ Signed [facility] Work Phone: [phone] 611-667403-15-2023 Procedure [facility] 07-01-2022 Procedure [facility]03-15-2023 Procedure note [facility]03-15-2023 Procedure [facility] 04-24-2022 History of Present illness Narrative* Allan Rosario MD - 04/24/2022 9:00 AM EST Chief Complaint Patient presents with: Follow Up: CPAP follow up HPI Salome Sheth is a 72 year old male who presents here today for CPAP Follow up. Here with . Pt needs a face to face visit to document how he is doing on his replacement CPAP machine after 90 days of use for insurance purposes. Pt getting CPAP supplies and machine through [employer]. He was given the machine on 02/12/22, as replacement for machine that was recalled. Pt is doing well on the CPAP, is able to keep it on all night with no problems. Both pt and feel it is working well for him and that he is sleeping much better since being on the CPAP machine. He brings in a compliance report showing good compliance. He uses Zzquil a few times a week to help him sleep on the nights he has a hard time falling asleep. He has not tried Melatonin. He states he is so tired and will get in bed to go to sleep and then is wide awake once he gets in bed. He lays there watching the clock. He has tried the behavioral things like avoid alcohol, caffeine, room is dark, avoid electronics before bed, relaxation techniques. Is scheduled to see Gastro Dr. Reyes's office on 04/29/22 for his stomach issues. Very sensitive tofoods he is eating. Past medical history, appointments, medications, allergies reviewed. Previous Medical History PAST MEDICAL HISTORY Diagnosis Date AAA (abdominal aortic aneurysm) conflicting results Anxiety Bladder cancer (HCC) [address] Foreman BPH (benign prostatic hyperplasia) BPPV (benign paroxysmal positional vertigo) Carpal tunnel syndrome s/p release Central sleep apnea Coronary artery disease s/p CABG. Dr. Varela Diabetes mellitus, type II (HCC) Diabetic retinopathy (HCC) OU Diverticulosis Fibromyalgia Hard of hearing Hypertension Hypothyroidism Insomnia Left elbow fracture Lipoma of anterior chest wall s/p resection Myocardial infarction (HCC) x3 Obesity (BMI 30-39.9) PRAKASH (obstructive sleep apnea) on CPAP Pulmonary nodules conflicting studies Restless leg syndrome Rheumatoid arthritis (HCC) Trigger finger Previous Surgical History PAST SURGICAL HISTORY Procedure Laterality Date ARTHRP KNE CONDYLE&PLATU MEDIAL&LAT COMPARTMENTS Bilateral x4 each CABG (3) VEIN GRAFTS & ARTERIAL GRAFT(S) 2003 CARPAL TUNNEL Bilateral CHOLECYSTECTOMY open COLONOSCOPY 07/14/2021 No repeat due to age. [facility] PAST SURGICAL HISTORY OF Left Reverse shoulder replacement PAST SURGICAL HISTORY OF Bilateral rotator cuff tear repair PAST SURGICAL HISTORY OF Left elbow fracture repair PAST SURGICAL HISTORY OF Right elbow-bone chip repair PAST SURGICAL HISTORY OF Left trigger finger release PAST SURGICAL HISTORY OF Left tumor resection from rib PAST SURGICAL HISTORY OF prostate surgery PAST SURGICAL HISTORY OF 03/08/2019 TURP, diagnostic cysto Family History FAMILY HISTORY Problem Relation Age of Onset Psychiatry Mother suicide Psychiatry Father suicide Heart Attack Sister Diabetes Brother type I other (celiac disease) Brother Alcohol/Drug Brother Blood Clots Brother Alzheimer's Disease Brother Heart disease Brother other (Pulmonday disease) Brother No Known Problems Brother No Known Problems Maternal Grandmother No Known Problems Maternal Grandfather No Known Problems Paternal Grandmother No Known Problems Paternal Grandfather Patient Allergies ALLERGIES Allergen Reactions Amlodipine Rash, Swelling Hctz [Hydrochloroth* Other: See Comments hyponatremia Lasix [Furosemide] Other: See Comments Liothyronine Other: See Comments Mouth sores Morphine Other: See Comments sick Obgvcib-Fdu-Yqe Red* Other: See Comments Mouth sores. Failed multiple statins Sulfa (Sulfonamide * Other: See Comments Mouth sores Synthroid [Levothyr* Other: See Comments Mouth sores. BRAND caused Diarrhea Current Medications Current Outpatient Medications on File Prior to Visit Medication Sig amLODIPine (NORVASC) 10 mg tablet Take 1 tablet by mouth once daily. gabapentin (NEURONTIN) 300 mg capsule Take 1 capsule by mouth twice daily for 180 days. isosorbide mononitrate ER (IMDUR) 30 mg 24 hr tablet Take 1 tablet by mouth twice daily. furosemide (LASIX) 40 mg tablet Take 1 tablet by mouth once daily. glipiZIDE (GLUCOTROL) 5 mg tablet Take 1 tablet by mouth once daily. CPAP Initiate CPAP @ 12 cm of water with humidification. Mask (per patient preference) optional chin strap (if indicated) , filters, tubing, humidifier and lifetime supplies. ARMOUR THYROID 60 mg tablet Take 2 pills five days a week and 1 pill two days a week. amLODIPine (NORVASC) 5 mg tablet Take 1 tablet by mouth once daily. pantoprazole DR (PROTONIX) 40 mg tablet Take 1 tablet by mouth daily before breakfast. Take on empty stomach, 1/2 hr before meal. metFORMIN (GLUCOPHAGE) 1,000 mg tablet Take 1 tablet by mouth daily with dinner. amiodarone (PACERONE) 200 mg tablet Taking 0.5 tab at bedtime metoprolol tartrate, short acting, (LOPRESSOR) 25 mg tablet Take 1 tablet by mouth twice daily. losartan (COZAAR) 100 mg tablet TAKE 1 AND 1/2 TABLETS ONCEDAILY polyethylene glycol 3350 (MIRALAX) 17 gram/dose powder Take 289 g by mouth once daily. Dissolve dose in 4 - 8 ounces of liquid and take as directed. acetaminophen (TYLENOL) 325 mg tablet 650 mg every 4 hours as needed. aspirin, enteric coated (ASPIRIN, ENTERIC COATED) 81 mg EC tablet Take 81 mg by mouth once daily. cholecalciferol (VITAMIN D-3) 5,000 unit tab Take 5,000 Units by mouth once daily. cyanocobalamin, vitamin B-12, (VITAMIN B-12 ORAL) Take by mouth once daily. 2000 mg No current facility-administered medications on file prior to visit. Social History Social History Tobacco Use Smoking status: Former Types: Cigarettes Quit date: 06/29/1966 Years since quittin.8 Smokeless tobacco: Never Tobacco comments: when he was 15 years old Vaping Use Vaping Use: Never used Substance Use Topics Alcohol use: Yes Comment: rare Drug use: No EXAM: BP 118/70 Pulse 74 Resp 16 Wt 100.7 kg (222 lb 1.6 oz) BMI 33.77 kg/m General Appearance: Well appearing, alert, in no acute distress, well-hydrated, well nourished.. Lungs: Lungs clear to auscultation. No wheezing, rhonchi, rales.. Heart: RRR without murmur, gallop, or rubs. No ectopy. Health Maintenance List ABDOMINAL AORTIC ANEURYSM SCREENING Never done COVID-19 VACCINE(1) Never done SHINGRIX VACCINE(1 of 2) Never done DIABETIC FOOT EXAM due on 04/24/2020 DILATED RETINAL EXAM due on 09/18/2021 INFLUENZA(1) due on 12/18/2021 URINE ALBUMIN:CREATININE RATIO due on 04/21/2022 HBA1C due on 07/16/2022 LDL CHOLESTEROL due on 01/16/2023 DTAP,TDAP,TD(2 - Tdap) due on 02/01/2023 ANNUAL PCP TEAM CHRONIC DISEASE VISIT due on 02/12/2023 BP CONTROLLED (<130/80) due on 02/12/2023 COLORECTAL CANCER SCREENING due on 07/15/2031 ADVANCE DIRECTIVE DISCUSSION Completed DEPRESSION ASSESSMENT Completed HEPATITIS C SCREENING Completed PNEUMOCOCCAL: 65+ Completed Data reviewed None ASSESSMENT/PLAN: 1. PRAKASH (obstructive sleep apnea) - ICD9: 327.23, ICD10: G47.33 (primary diagnosis) Doing well on CPAP; continue same Office note faxed to [facility] 2. Type 2 diabetes mellitus without complication, without long-term current use of insulin (HCC) - ICD9: 250.00, ICD10: E11.9 Controlled. - Continue current medications - METFORMIN 1,000 MG TABLET 3. Type 2 diabetes mellitus with diabetic neuropathy, without long-term current use of insulin (HCC) - ICD9: 250.60, 357.2, ICD10: E11.40 Controlled. - Continue current medications 4. Essential hypertension - ICD9: 401.9, ICD10: I10 - good control - Continue current medication(s) - Recommended regular aerobic exercise. - Recommend home blood pressure monitoring, to bring results in on next visit - Goal of BP <130/80 - LOSARTAN 100 MG TABLET - METOPROLOL TARTRATE 25 MG TABLET - ISOSORBIDE MONONITRATE ER 30 MG TABLET,EXTENDED RELEASE 24 HR 5. Coronary artery disease involving [place] coronary artery of [place] heart without angina pectoris- ICD9: 414.01, ICD10: I25.10 Continue current medications. - ISOSORBIDE MONONITRATE ER 30 MG TABLET,EXTENDED RELEASE 24 HR Follow up in July as scheduled. Office note will be faxed to [facility]. I agree with the Chief Complaint, ROS, and Past Histories independently gathered by the clinical production support consultant and the remaining scribed note accurately describes my personal service to the patient. Medical Decision Making: Problems: Low: Stable chronic illness Data: Unique test result(s) reviewed: 1 Risk: Moderate: Drug management Medical Decision Making Level: 3 - Low Allan Rosario MD The documentation for this note was completed by Tory Banks Ma acting as scribe for Allan Rosario MD. April 24, 2022 9:01 AM. Tory Banks Ma documented in this encounterAd[facility]12-21-2022 Miscellaneous Notes* Telephone Encounter - Allan Rosario MD - 04/08/2022 1:34 PM EST OK to refill as ordered Allan Rosario MD * Telephone Encounter - Levi Sandoval LPN - 04/08/2022 12:11 PM EST Pt's calling stating pt's amlopipine was increased to 10 mg when pt was admitted in [facility]. states she had been using up the 5 mg tablets . Is now using the rx from [facility] dated 02/04. wouldlike to get refills. Call only if problem. Please send to [facility]. Levi Sandoval LPN documented in this encounterAdams County Hospital10-28-2022 Miscellaneous Notes* Telephone Encounter - Joann Crum Ma - 02/13/2022 2:31 PM EDT Office received fax from [facility]. Pt currently scheduled for a consult on 04/29/22. Joann Crum Ma documented in this encounterAdams [facility] Hospital10-27-2022 History of Present illness Narrative* Allan Rosario MD - 02/12/2022 10:00 AM EDT Transitional Care Management TCM Eligibility Documentation The following information was gathered during the initial Patient Outreach Encounter. Date of Outreach: 02/05/2022 Outreach Attempt 1: Contact Made Date of Discharge 02/04/2022 Some recent data might be hidden Provider Documentation Salome Sheth is a 71 year old male here today for a follow up from recent hospitalization. I have reviewed the patient's hospital course including discharge summary, discharge medications , and follow up needs with the patient and any family members present at today's visit. HPI 14 day TCM Pt states he is feeling fine. He admits that since this episode he has felt phlegm or drainage in the throat, which he has not had before. He denies feeling like he has any more sinus drainage and usual. It makes him feel like he needs to cough to clear it up. Energy level ok and eating and drinking ok. He follows with [facility], Dr. Lan and Marvin Hagen CNP, scheduled to follow up with cardio in Feb. Cardio increased his Norvasc from 5 mg to 10 mg daily, even though he was taken off it a month ago and Imdur 30 mg BID (total of 60 mg daily). He states that these episodes come onquickly, states one minute he could be fine and next he could feel terrible. He states he will try to do his home remedies at home first and uses his CPAP, takes deep breaths to try to calm his breathing and relax him which he feels helps. He is checking his O2 at home, his heart rate, BP, and BSas well. They are trying to get scheduled with Veronica Boggs. states that they have not heard fromDr. Reyes's office. Advised pt to call back, referral, demo, OV, etc faxed to Dr. Reyes's office 02/05/22. He was scheduled to see General Surgeon the day he ended up going to the ER for the lump he has to the left side below the breast. He states it is getting bigger, he feels pain across the rib and chest area. He states if he lays on the left side it puts pressure on the lump and then he feels that effects his heart. Below copied from [facility] [employer]: Chief Complaint: Chest Pain Narrative Narrative: 71-year-old male past medical history of CHF presents with sudden onset of shortness of breath thatstarted about an hour ago. History and physical is limited secondary to patient condition. According to his he was getting ready for bed. He got up to go to the bathroom and his blood pressure started rising. He began having shortness of breath and respiratory distress. She states that a year ago on October 20, he was admitted for CHF and was told that he had congestive heart failure. He was started on Lasix and they added a total of 4 other medications at that time. He does have history of coronary artery disease and has had CABG 18 years ago. No recent fevers or chills. No cough or leg swel ling. He presents because of the respiratory distress, difficulty breathing, and he broke out in a cold sweat. Hospital Course: Mr. Sheth is a 71-year-old white male who presented to the emergency department at [facility] on 02/03/2022 with a chief complaint of shortness of breath. Patient has known history of paroxysmal atrial fibrillation with RVR that has led to flash pulmonary edema previously along w ith coronary artery disease status post CABG. Upon presentation he upon presentation he reported that he often times experiences abdominal discomfort that is nondescript and diffuse in the evening which subsequently leads to his blood pressure elevation. He states he has the symptoms almost daily however he does not have blood pressure issues almost daily. He indicated he was evaluated with an EGD and colonoscopy both of which were negative previously. [facility] has not followed up since the negative scopes. He feels that these attributed to him having blood pressure elevations which resulted in pulmonary edema.On presentation to the emergency de partment, the patient was noted to be significantly hypertensive, tachycardic and tachypneic. Initial laboratory evaluation revealed a white blood cell count of 13,000. Platelet count was low at 113,000. Chemistry profile was notable for a creatinine of 1.8. Troponin was elevated at 696 with a BNP of 300. Plain film chest x-ray revealed stigmata of congestive heart failure. Arterial blood gas demonstrated a pH of 7.24 with a PCO2 of 44 and PO2 of 110. The patient was ultimately placed on BiPAP therapy and was given IV Lasix. He was subsequently admitted to the medical intensive care unit for further management. He had a similar episode back in October 2020 and was admitted here for this. Noninvasive and invasive cardiology testing were performed at that time and found not to be revealing of any new abnormalities. Cardiac enzymes were cycled and noted to be abnormal. This was felt likely tom related to his markedly elevated blood pressure. He was diuresed aggressively and an echocardiogram was performed. His echo showed an EF of 50% as well as mild mitral valve, aortic valve, pulmonic valve insufficiency and a borderline-mildly enlarged aortic root. No evidence of diastolic dysfunction was identified. Cardiology was consulted and given his recent invasive testing with cardiac catheterization within the last year no repeat evaluation was felt to be warranted adjustments in his antihypertensives were made and a renal duplex was assessed given his blood pressure elevation. Renal duplex was found to be normal with no identifiable stenosis. He was maintained on his home antihypertensives and amlodipine 10 mg a day was added. A new prescription for this was written at the time of discharge. He was discharged home in stable condition on 02/04/2022. With regards to his ongoing abdominal issues which he feels is likely causing this I recommended he follow- up with his photovoltaic testing technician. The patient also states that he has significant anxiety and PTSD having 3 horrific nightmares nightly on a regular basis. He questions whether or not this could be psychosomatic and I do agree that it is possible. I did advise counseling and he was reluctant to utilize any psychotherapy atthis time. He plans on following up with his primary care physician and then go from there. PHYSICAL EXAMINATION BP 124/78 Pulse 60 Resp 16 Wt 98.9 kg (218 lb 1.6 oz) BMI 33.16 kg/m GENERAL: well appearing, alert, in no acute distress HEART: Regular rate and rhythm. No murmur, rubs or gallops. LUNGS: clear to auscultation, no wheezing, rhonchi, or crackles ASSESSMENT/PLAN: 1. Hospital discharge follow-up - ICD9: V67.59, ICD10: Z09 (primary diagnosis) Continue current medications. 2. Fibromyalgia - ICD9: 729.1, ICD10: M79.7 3. Type 2 diabetes mellitus with diabetic neuropathy, without long-term current use of insulin (HCC) - ICD9: 250.60, 357.2, ICD10: E11.40 4. Ischemic cardiomyopathy - ICD9: 414.8, ICD10: I25.5 5. Paroxysmal A-fib (HCC) - ICD9: 427.31, ICD10: I48.0 6. Coronary artery disease involving [place] coronary artery of [place] heart without angina pectoris- ICD9: 414.01, ICD10: I25.10 7. Essential hypertension - ICD9: 401.9, ICD10: I10 8. Mixed hyperlipidemia - ICD9: 272.2, ICD10: E78.2 9. PRAKASH (obstructive sleep apnea) - ICD9: 327.23, ICD10: G47.33 10. Acquired hypothyroidism - ICD9: 244.9, ICD10: E03.9 Continue current medications. Follow up as planned I agree with the Chief Complaint, ROS, and Past Histories independently gathered by the clinical production support consultant and the remaining scribed note accurately describes my personal service to the patient. Medical Decision Making: Problems: Moderate: 2+ stable chronic illnesses Data: Unique test result(s) reviewed: 3+ Risk: Moderate: Drug management Medical Decision Making Level: 4 - Moderate Allan Rosario MD The documentation for this note was completed by Tory Banks Ma acting as scribe for Allan Rosario MD. February 12, 2022 10:10 AM. Tory Banks Ma documented in this encounterAdams [facility] Hospital10-20-2022 Miscellaneous Notes* Telephone Encounter - Tory Banks Ma - 02/05/2022 4:59 PM EDT Referral, office note, demo, med list, labs faxed. Tory Banks Ma * Telephone Encounter - Allan Rosario MD - 02/05/2022 4:55 PM EDT OK to refer as requested Allan Rosario MD * Telephone Encounter - Layla Kapadia LPN - 02/05/2022 4:06 PM EDT Patient Gale calling she has been trying to get appt for with Dr Reyes, [facility]. They are requiring a referral, fax number is [phone], before she can get appt set up.Pending order needs diagnosis. Please advise documented in this encounterAdams County Hospital10-20-2022 History of Present illness Narrative* Allan Rosario MD - 02/05/2022 4:50 PM EDT Noted Allan Rosario MD * Tory Getaye Calles - 02/05/2022 3:24 PM EDT TRANSITION CARE MANAGEMENT (TCM) INITIAL CONTACT Nursing Unit Manager Outreach Provider Action/FYI: 14 day TCM Pt states he is feeling fine. Energy level ok and eating and drinking ok. He follows with [facility], Dr. Lan and Marvin Hagen CNP, scheduled to follow up with cardio in Feb. Cardio increased his Norvasc from 5 mg to 10 mg daily, even though he was taken off it a month ago and Imdur 30mg BID (total of 60 mg daily). They are trying to get scheduled with Veronica Boggs. Initial contact with patient post discharge, spoke to patient and on 02/05/22 Patient identified by name and . TRANSITION CARE MANAGEMENT INITIAL OUTREACH DOCUMENTATION: Date of Outreach: 02/05/2022 Outreach Attempt 1: Contact Made Date of Discharge 02/04/2022 Some recent data might be hidden SUMMARY: -Pt discharged from [facility] on 02/04/22. -Admitted for: Acute Resp Failure with Hypoxia Flash Pulm. [place] NSTEMI S/P PTCA S/P CABG Paroxysmal A-fib HDL HTN Below copied from [facility] [employer]: Chief Complaint: Chest Pain Narrative Narrative: 71-year-old male past medical history of CHF presents with sudden onset of shortness of breath thatstarted about an hour ago. History and physical is limited secondary to patient condition. According to his he was getting ready for bed. He got up to go to the bathroom and his blood pressure started rising. He began having shortness of breath and respiratory distress. She states that a year ago on October 20, he was admitted for CHF and was told that he had congestive heart failure. He was started on Lasix and they added a total of 4 other medications at that time. He does have history of coronary artery disease and has had CABG 18 years ago. No recent fevers or chills. No cough or leg swel ling. He presents because of the respiratory distress, difficulty breathing, and he broke out in a cold sweat. Hospital Course: Mr. Sheth is a 71-year-old white male who presented to the emergency department at [facility] on 02/03/2022 with a chief complaint of shortness of breath. Patient has known history of paroxysmal atrial fibrillation with RVR that has led to flash pulmonary edema previously along w ith coronary artery disease status post CABG. Upon presentation he upon presentation he reported that he often times experiences abdominal discomfort that is nondescript and diffuse in the evening which subsequently leads to his blood pressure elevation. He states he has the symptoms almost daily however he does not have blood pressure issues almost daily. He indicated he was evaluated with an EGD and colonoscopy both of which were negative previously. [facility] has not followed up since the negative scopes. He feels that these attributed to him having blood pressure elevations which resulted in pulmonary edema.On presentation to the emergency de partment, the patient was noted to be significantly hypertensive, tachycardic and tachypneic. Initial laboratory evaluation revealed a white blood cell count of 13,000. Platelet count was low at 113,000. Chemistry profile was notable for a creatinine of 1.8. Troponin was elevated at 696 with a BNP of 300. Plain film chest x-ray revealed stigmata of congestive heart failure. Arterial blood gas demonstrated a pH of 7.24 with a PCO2 of 44 and PO2 of 110. The patient was ultimately placed on BiPAP therapy and was given IV Lasix. He was subsequently admitted to the medical intensive care unit for further management. He had a similar episode back in October 2020 and was admitted here for this. Noninvasive and invasive cardiology testing were performed at that time and found not to be revealing of any new abnormalities. Cardiac enzymes were cycled and noted to be abnormal. This was felt likely tom related to his markedly elevated blood pressure. He was diuresed aggressively and an echocardiogram was performed. His echo showed an EF of 50% as well as mild mitral valve, aortic valve, pulmonic valve insufficiency and a borderline-mildly enlarged aortic root. No evidence of diastolic dysfunction was identified. Cardiology was consulted and given his recent invasive testing with cardiac catheterization within the last year no repeat evaluation was felt to be warranted adjustments in his antihypertensives were made and a renal duplex was assessed given his blood pressure elevation. Renal duplex was found to be normal with no identifiable stenosis. He was maintained on his home antihypertensives and amlodipine 10 mg a day was added. A new prescription for this was written at the time of discharge. He was discharged home in stable condition on 02/04/2022. With regards to his ongoing abdominal issues which he feels is likely causing this I recommended he follow- up with his photovoltaic testing technician. The patient also states that he has significant anxiety and PTSD having 3 horrific nightmares nightly on a regular basis. He questions whether or not this could be psychosomatic and I do agree that it is possible. I did advise counseling and he was reluctant to utilize any psychotherapy atthis time. He plans on following up with his primary care physician and then go from there. Do you have a hospital follow up appointment with your PCP? Appointment on 02/12/22 with PCP. Yes. Remind patient of appointment date, time, and location. If not within 14 calendar days of discharge - please reschedule accordingly. MEDICATIONS: Many patients have questions or concerns about their medications once they are home. Were you prescribed any new medications? If yes, what are those medications? Isosorbide 60 mg daily Norvasc 10 mg daily Were you told to hold any medications? No Were any of your medications discontinued? No Do you have any questions about getting or taking your medications? No Your discharge instructions/After visit Summary (AVS) are important in guiding you through the recovery process. Is there anything I might help you understand? No Do you have all the necessary equipment and supplies at home? Yes Medical records from recent hospitalization: Placed for provider to review documented in [facility]Ad[facility] Miscellaneous Notes* Telephone Encounter - Tory Banks Ma - 02/03/2022 4:00 PM EDT optometric technologist Allan notified and voiced understanding. Pharmacist also notified. * Telephone Encounter - Allan Rosario MD - 02/03/2022 3:54 PM EDT He has been taking the armour thyroid without problems so they may go ahead and release that to him. Allan Rosario MD * Telephone Encounter - Barbara Green LPN - 02/03/2022 2:26 PM EDT [place] with [facility] [employer] calling and states they got an allergy alert on [place] Thyroid. Pt has allergy to thyroid hormones do you want the above medication released to the pt. The above medication is on hold till they hear back from you. REF # [id number] Call back number is [phone] option 2. Barbara Green LPN documented in this encounterAdams [facility] Hospital10-13-2022 Miscellaneous Notes* Telephone Encounter - Allan Rosario MD - 01/29/2022 2:08 PM EDT Rx corrected Allan Rosario MD * Telephone Encounter - Yesenia Hagan LPN - 01/29/2022 1:36 PM EDT Patient phones requesting refills as follows: Pharmacy comment: The directions are conflicting on the original prescription for armour thyr. 60mgtabs dated 01/29/2022. Please respond with intended directions or comment to Pharmacy. Requested Prescriptions Pending Prescriptions Disp Refills ARMOUR THYROID 60 mg tablet [Pharmacy Med Name: ARMOUR THYROID 60 MG TABLET] 160 tablet 3 Sig: TAKE 1 TABLET BY MOUTH ONCE DAILY. TAKE 2 PILLS FIVE DAYS A WEEK AND 1 PILL TWO DAYS A WEEK. Please review and advise. Yesenia Hagan LPN documented in this encounterAdams [facility] Hospital10-13-2022 Instructions* Patient Instructions* Tory Banks Ma - 01/29/2022 9:01 AM EDT Thyroid medication change to 2 pills for 5 days a week and 1 pill for 2 days a week. Glucotrol reduce from 10 mg daily to 5 mg daily. New script sent to pharmacy. documented in this encounterAdams [facility] Hospital10-13-2022 History of Present illness Narrative* Allan Rosario MD - 01/29/2022 8:40 AM EDT Chief Complaint Patient presents with: 6 Month Exam HPI Salome Sheth is a 71 year old male who presents here today for a 6 month follow up. Here with . [facility] [place] [facility]. [facility]Hx of bleeding behind right eye, improved. They are watching the left eye now for bleeding. Declined covid and flu vaccine. Denies feeling depressed or hopeless. Denies any unchanged stomach, bowel or urinary issues. Uses Miralax prn. GERD: Sx controlled on Protonix 40 mg daily. DM: Checking BS daily, readings running 130. He states it varies with no reason. He states he will take a little bit of alcohol to help him sleep, so he knows that will cause his BS to be high in theAM. He has cut out most of the alcohol intake. He does get occ lows. Taking Metformin 1,000 mg daily and Glucotrol 10 mg daily. HTN : Check BP at home on occasion. Denies any chest pain or dizziness. Does get sob with exertion or walking a long distance. Pt following with Dr. Lan at [facility]. On current regimen of Amiodarone 200 mg 0.5 tab po daily at bedtime, Imdur 30 mg once twice daily, Lopressor 25 mg 1tab po bid, Losartan 100 mg 1.5 tab po once daily, Lasix 40 mg 1 tab daily. Amlodipine 5 mg once daily was d/c due to lip swelling. The swelling improved. Penis: has a red spot on the penis which he thinks is caused from medication. Denies any pain. He was on Norvasc which was d/c due to lip swelling. Swelling of lips improved. He saw Urologist who told him it was nothing to worry about, that it was a yeast infection. Thyroid: Stable with Pork Thyroid 60-65 mg two tabs in the am. Pain: Hx of neuropathy, RLS and Fibro. Stable on current regimen of Gabapentin 300 mg 2 caps po at bedtime. Will be seeing Dr. Benito Patel next week to have his lung and rib checked. PRAKASH: Doing well with CPAP. Currently at 12 cm of water. Uses [employer]. Pt states he needs a new machine as his current one is on recall. Company told him he may need to have another sleepstudy done before it cuold be replaced. Pt to check on [employer] for office to send past sleep study and order to. Will order test for new sleep study test if required. Sleep study done at [facility] [address] Rodriguez. Past medical history, appointments, medications, allergies reviewed. Previous Medical History PAST MEDICAL HISTORY Diagnosis Date AAA (abdominal aortic aneurysm) conflicting results Anxiety Bladder cancer (HCC) [address] Foreman BPH (benign prostatic hyperplasia) BPPV (benign paroxysmal positional vertigo) Carpal tunnel syndrome s/p release Central sleep apnea Coronary artery disease s/p CABG. Dr. Varela Diabetes mellitus, type II (HCC) Diabetic retinopathy (HCC) OU Diverticulosis Fibromyalgia Hard of hearing Hypertension Hypothyroidism Insomnia Left elbow fracture Lipoma of anterior chest wall s/p resection Myocardial infarction (HCC) x3 Obesity (BMI 30-39.9) PRAKASH (obstructive sleep apnea) on CPAP Pulmonary nodules conflicting studies Restless leg syndrome Rheumatoid arthritis (HCC) Trigger finger Previous Surgical History PAST SURGICAL HISTORY Procedure Laterality Date ARTHRP KNE CONDYLE&PLATU MEDIAL&LAT COMPARTMENTS Bilateral x4 each CABG (3) VEIN GRAFTS & ARTERIAL GRAFT(S) 2003 CARPAL TUNNEL Bilateral CHOLECYSTECTOMY open COLONOSCOPY 07/14/2021 No repeat due to age. EGD W/O [facility] SPEC VARICIES INJ 07/14/2021 PAST SURGICAL HISTORY OF Left Reverse shoulder replacement PAST SURGICAL HISTORY OF Bilateral rotator cuff tear repair PAST SURGICAL HISTORY OF Left elbow fracture repair PAST SURGICAL HISTORY OF Right elbow-bone chip repair PAST SURGICAL HISTORY OF Left trigger finger release PAST SURGICAL HISTORY OF Left tumor resection from rib PAST SURGICAL HISTORY OF prostate surgery PAST SURGICAL HISTORY OF 03/08/2019 TURP, diagnostic cysto Family History FAMILY HISTORY Problem Relation Age of Onset Psychiatry Mother suicide Psychiatry Father suicide Heart Attack Sister Diabetes Brother type I other (celiac disease) Brother Alcohol/Drug Brother Blood Clots Brother Alzheimer's Disease Brother Heart disease Brother other (Pulmonday disease) Brother No Known Problems Brother No Known Problems Maternal Grandmother No Known Problems Maternal Grandfather No Known Problems Paternal Grandmother No Known Problems Paternal Grandfather Patient Allergies ALLERGIES Allergen Reactions Amlodipine Rash, Swelling Hctz [Hydrochloroth* Other: See Comments hyponatremia Lasix [Furosemide] Other: See Comments Liothyronine Other: See Comments Mouth sores Morphine Other: See Comments sick Ecisfgk-Mjw-Pxd Red* Other: See Comments Mouth sores. Failed multiple statins Sulfa (Sulfonamide * Other: See Comments Mouth sores Synthroid [Levothyr* Other: See Comments Mouth sores. BRAND caused Diarrhea Current Medications Current Outpatient Medications on File Prior to Visit Medication Sig amLODIPine (NORVASC) 5 mg tablet Take 1 tablet by mouth once daily. pantoprazole DR (PROTONIX) 40 mg tablet Take 1 tablet by mouth daily before breakfast. Take on empty stomach, 1/2 hr before meal. metFORMIN (GLUCOPHAGE) 1,000 mg tablet Take 1 tablet by mouth daily with dinner. amiodarone (PACERONE) 200 mg tablet Taking 0.5 tab at bedtime thyroid,pork (ARMOUR THYROID ORAL) Take 60-65 mg by mouth once daily. Takes two tablets in the morning amiodarone (PACERONE) 200 mg tablet Taking 0.5 tab at bedtime metoprolol tartrate, short acting, (LOPRESSOR) 25 mg tablet Take 1 tablet by mouth twice daily. losartan (COZAAR) 100 mg tablet TAKE 1 AND 1/2 TABLETS ONCEDAILY gabapentin (NEURONTIN) 300 mg capsule Take 1 capsule by mouth twice daily for 180 days. (Patient taking differently: Take 300 mg by mouth daily at bedtime. Takes two capsules at bedtime) glipiZIDE (GLUCOTROL XL) 10mg 24 hr tablet Take 1 tablet by mouth once daily. furosemide (LASIX) 40 mg tablet Take 0.5 tablets by mouth once daily. polyethylene glycol 3350 (MIRALAX) 17 gram/dose powder Take 289 g by mouth once daily. Dissolve dose in 4 - 8 ounces of liquid and take as directed. isosorbide mononitrate ER (IMDUR) 30 mg 24 hr tablet Take 1 tablet by mouth once daily. acetaminophen (TYLENOL) 325 mg tablet 650 mg every 4 hours as needed. CPAP Initiate CPAP @ 12 cm of water with humidification. Mask (per patient preference) optional chin strap (if indicated) , filters, tubing, humidifier and lifetime supplies. aspirin, enteric coated (ASPIRIN, ENTERIC COATED) 81 mg EC tablet Take 81 mg by mouth once daily. cholecalciferol (VITAMIN D-3) 5,000 unit tab Take 5,000 Units by mouth once daily. cyanocobalamin, vitamin B-12, (VITAMIN B-12 ORAL) Take by mouth once daily. 2000 mg No current facility-administered medications on file prior to visit. Social History Social History Tobacco Use Smoking status: Former Types: Cigarettes Quit date: 06/29/1966 Years since quittin.6 Smokeless tobacco: Never Tobacco comments: when he was 15 years old Vaping Use Vaping Use: Never used Substance Use Topics Alcohol use: Yes Comment: rare Drug use: No EXAM: BP 138/80 Pulse 74 Resp 16 Wt 100.7 kg (222 lb) BMI 33.75 kg/m General Appearance: Well appearing, alert, in no acute distress, well-hydrated, well nourished. andOverweight. Lungs: Lungs clear to auscultation. No wheezing, rhonchi, rales.. Heart: RRR without murmur, gallop, or rubs. No ectopy. Health Maintenance List ABDOMINAL AORTIC ANEURYSM SCREENING Never done COVID-19 VACCINE(1) Never done SHINGRIX VACCINE(1 of 2) Never done DIABETIC FOOT EXAM due on 04/24/2020 DEPRESSION ASSESSMENT Never done DILATED RETINAL EXAM due on 09/18/2021 INFLUENZA(1) due on 12/18/2021 URINE ALBUMIN:CREATININE RATIO due on 04/21/2022 HBA1C due on 07/16/2022 ANNUAL PCP TEAM CHRONIC DISEASE VISIT due on 07/24/2022 BP CONTROLLED (<130/80) due on 08/26/2022 LDL CHOLESTEROL due on 01/16/2023 DTAP,TDAP,TD(2 - Tdap) due on 02/01/2023 COLORECTAL CANCER SCREENING due on 07/15/2031 ADVANCE DIRECTIVE DISCUSSION Completed HEPATITIS C SCREENING Completed PNEUMOCOCCAL: 65+ Completed Data reviewed Appointment on 01/16/2022 Component Date Value Protein, Total 01/16/2022 7.3 Albumin 01/16/2022 4.6 Calcium, Total 01/16/2022 10.1 Bilirubin, Total 01/16/2022 0.3 Alkaline Phosphatase 01/16/2022 67 AST 01/16/2022 21 ALT 01/16/2022 15 Glucose 01/16/2022 94 BUN 01/16/2022 23 Creatinine 01/16/2022 1.45 (A) Sodium 01/16/2022 142 Potassium 01/16/2022 4.0 Chloride 01/16/2022 103 CO2 01/16/2022 27 Anion Gap 01/16/2022 12 Estimated Glomerular Michael* 01/16/2022 51 (A) Cholesterol, Total 01/16/2022 201 (A) Triglyceride 01/16/2022 254 (A) HDL Cholesterol 01/16/2022 32 (A) Non HDL Cholesterol 01/16/2022 169 (A) Fasting Time 01/16/2022 13 VLDL Cholesterol 01/16/2022 51 (A) TC:HDL Ratio 01/16/2022 6.28 (A) LDL Cholesterol 01/16/2022 118 (A) LDL:HDL Ratio 01/16/2022 3.69 (A) Hemoglobin A1C 01/16/2022 6.5 (A) Estimated Average Glucose 01/16/2022 140 TSH 01/16/2022 0.079 (A) ASSESSMENT/PLAN: 1. Type 2 diabetes mellitus with diabetic neuropathy, without long-term current use of insulin (HCC) - ICD9: 250.60, 357.2, ICD10: E11.40 (primary diagnosis) Controlled. - Continue current medications - Decrease glucotrol from 10 mg to 5 mg daily 2. Neuropathy - ICD9: 355.9, ICD10: G62.9 Stable Continue current medications. 3. Essential hypertension - ICD9: 401.9, ICD10: I10 - good control - Continue current medication(s) - Recommended regular aerobic exercise. - Recommend home blood pressure monitoring, to bring results in on next visit - Goal of BP <130/80 4. Coronary artery disease involving [place] coronary artery of [place] heart without angina pectoris- ICD9: 414.01, ICD10: I25.10 Continue current medications. Continue with [facility] 5. Mixed hyperlipidemia - ICD9: 272.2, ICD10: E78.2 - good control - Continue current medication. - Encouraged following a low fat, low cholesterol diet. - Discussed the benefits of regular aerobic exercise and weight loss. 6. PRAKASH (obstructive sleep apnea) - ICD9: 327.23, ICD10: G47.33 New CPAP ordered due to his current machine being recalled, will fax to company when pt provides name 7. Lung nodule, solitary - ICD9: 793.11, ICD10: R91.1 Continue to monitor 8. Acquired hypothyroidism - ICD9: 244.9, ICD10: E03.9 - Instructed patient on importance of taking on an empty stomach either first thing in the morning or at bedtime. Change thyroid 60 mg to 2 pills five days a week and 1 pill two days a week Follow up in 6 months with fasting labs and urine test prior. I agree with the Chief Complaint, ROS, and Past Histories independently gathered by the clinical production support consultant and the remaining scribed note accurately describes my personal service to the patient. Medical Decision Making: Problems: Moderate: 2+ stable chronic illnesses Data: Unique test result(s) reviewed: 3+ Unique test(s) ordered: 3+ Risk: Moderate: Drug management Medical Decision Making Level: 4 - Moderate Allan Rosario MD The documentation for this note was completed by Tory Banks Ma acting as scribe for Allan Rosario MD. January 29, 2022 8:45 AM. Tory Banks Ma documented in this encounterAdams [facility] Hospital10-11-2022 History of Past illness Narrative* Problem Noted Date Resolved Date Obesity (BMI 30-39.9) 01/27/2022 documented as of this encounter (statuses as of 01/29/2022) [facility] of Past illness Narrative* Problem Noted Date Resolved Date Obesity (BMI 30-39.9) 01/27/2022 documented as of this encounter (statuses as of 01/29/2022) [facility] of Past illness Narrative* Problem Noted Date Resolved Date Obesity (BMI 30-39.9) 01/27/2022 documented as of this encounter (statuses as of 02/03/2022) [facility] of Past illness Narrative* Problem Noted Date Resolved Date Obesity (BMI 30-39.9) 01/27/2022 documented as of this encounter (statuses as of 02/05/2022) [address]22 History of Past illness Narrative* Problem Noted Date Resolved Date Obesity (BMI 30-39.9) 01/27/2022 documented as of this encounter (statuses as of 02/05/2022) [address]22 History of Past illness Narrative* Problem Noted Date Resolved Date Obesity (BMI 30-39.9) 01/27/2022 documented as of this encounter (statuses as of 02/13/2022) [facility] of Past illness Narrative* Problem Noted Date Resolved Date Obesity (BMI 30-39.9) 01/27/2022 documented as of this encounter (statuses as of 02/13/2022) [facility] of Past illness Narrative* Problem Noted Date Resolved Date Obesity (BMI 30-39.9) 01/27/2022 documented as of this encounter (statuses as of 04/08/2022) [address]22 History of Past illness Narrative* Problem Noted Date Resolved Date Obesity (BMI 30-39.9) 01/27/2022 documented as of this encounter (statuses as of 04/24/2022) [facility] Narrative* Problem Noted Date Resolved Date Obesity (BMI 30-39.9) 01/27/2022 documented as of this encounter (statuses as of 07/30/2022) [facility] of [facility] illness Narrative* Problem Noted Date Resolved Date Obesity (BMI 30-39.9) 01/27/2022 documented as of this encounter (statuses as of 08/24/2022) [facility] of [facility] illness Narrative* Problem Noted Date Resolved Date Obesity (BMI 30-39.9) 01/27/2022 documented as of this encounter (statuses as of 09/29/2022) [address]22 History of Past illness Narrative* Problem Noted Date Diagnosed Date Resolved Date Obesity (BMI 30-39.9) 2021 documented as of this encounter (statuses as of 11/24/2022) [facility] Narrative* Problem Noted Date Diagnosed Date Resolved Date Obesity (BMI 30-39.9) 2021 documented as of this encounter (statuses as of 11/26/2022) [facility] Narrative* Problem Noted Date Diagnosed Date Resolved Date Obesity (BMI 30-39.9) 2021 documented as of this encounter (statuses as of 01/29/2023) [facility] illness Narrative* Problem Noted Date Diagnosed Date Resolved Date Obesity (BMI 30-39.9) 2021 documented as of this encounter (statuses as of 02/23/2023) [facility] Narrative* Problem Noted Date Diagnosed Date Resolved Date Obesity (BMI 30-39.9) 2021 documented as of this encounter (statuses as of 03/22/2023) [facility] Miscellaneous Notes* Telephone Encounter - Halina Garzon APRN.CNP - 08/26/2021 4:00 PM EDT Called patient and discussed XR results - plan patient will continue prunes and benefiber in the morning and miralax at night - and use GAS-x as needed. He reports will follow up in 1-2 weeks Halina Garzon APRN.CNP documented in this encounterAdams County Hospital05-10-2022 History of Present illness Narrative* RT Karlos(R) - 08/26/2021 12:30 PM EDT Radiology Service Progress Note PATIENT NAME: Salome Sheth DATE OF SERVICE: August 26, 2021 TIME: 12:26 PM PATIENT IDENTITY VERIFICATION COMPLETED USING TWO (2) IDENTIFIERS: Name and Date of confirmedby patient verbally. FALL SCREENING: Has the patient had 2 falls in the last year or 1 fall with injury or currently using an Ambulatory Assistive Device (Walker, Cane, Wheelchair, Crutches, etc.)? No PATIENT GENDER DATA: Male PATIENT RELEVANT IMPLANT DATA REVIEWED: Not Applicable RADIOLOGY DEPARTMENT: General X-ray: Exam(s) Completed: Abdomen X-Ray: Abdomen PERIPHERAL IV DATA: Not applicable SIGNED BY: RT Karlos(R) August 26, 2021 12:26 PM documented in this encounterAdams County Hospital05-03-2022 Miscellaneous Notes* Telephone Encounter - Aniyah Hines Ma - 08/19/2021 1:55 PM EDT Pt notified. * Telephone Encounter - Kamari Melendez APRN.CNP - 08/19/2021 12:08 PM EDT Please inform patient that his CT of the chest shows a stable lung nodule and a stable weakening inthe aortic wall that should be followed up on in 1 year. Order placed. Kamari Melendez APRN.CNP documented in this encounterAd[facility]04-29-[facility]22 Miscellaneous Notes* Allied [facility] - RT Fely(R) - 08/15/2021 7:15 AM EDT Radiology Service Progress Note PATIENT NAME: Salome Sheth DATE OF SERVICE: August 15, 2021 TIME: 7:13 AM PATIENT IDENTITY VERIFICATION COMPLETED USING TWO (2) IDENTIFIERS: Name and Date of confirmedby patient verbally and Name and Date of confirmed by identification band. FALL SCREENING: Has the patient had 2 falls in the last year or 1 fall with injury or currently using an Ambulatory Assistive Device (Walker, Cane, Wheelchair, Crutches, etc.)? No PATIENT GENDER DATA: Male PATIENT RELEVANT IMPLANT DATA REVIEWED: Not Applicable RADIOLOGY DEPARTMENT: CT; Exam(s) Completed: Chest PERIPHERAL IV DATA: Not applicable SIGNED BY: RT Fely(R) August 15, 2021 7:13 AM documented in this encounterAd[facility]04-11-2022 Miscellaneous Notes* Telephone Encounter - Cely Burton LPN - 07/28/2021 10:48 AM EDT Scheduled 08/26/2021. * Telephone Encounter - Cely Burton LPN - 07/16/2021 9:46 AM EDT Message left asking patient to call and scheduled appointment. Can be virtual visit of in office visit. * Telephone Encounter - Gwendolyn Borges RN - 07/14/2021 8:27 AM EDT Mr. Sheth had an EGD and colonoscopy completed today with Dr. Grijalva. He will need a follow upappointment with Halina Garzon CNP, to review the pathology results from the EGD biopsies. Thank you. Gwendolyn Borges RN documented in this encounterAd[facility]04-07-2022 History of Present illness Narrative* Allan Rosario MD - 07/24/2021 8:00 AM EDT Chief Complaint Patient presents with: F/U 3 months HPI Aza H Lizzy is a 71 year old male who presents here today for 3 month follow up. Pt here today, with his for a 3 month follow up. GI/Urinary - Pt notes some GI irritability and burning sensation mid stomach. Pt had EGD and colonoscopy done last week. Does have a hernia. Wonders if this could be related to have a cholecystectomy. HTN: Checks BP intermittently at home, feels that his BP is good 150/70's. Denies any chest pain, but reports pressure in b/l top part of his ribs. Pt does get sob with exertion or walking a long distance. Denies any dizziness. Generally when pt has a CA he doesn't have typical symptoms and will get left elbow pain. Follows with Cardio, Dr. Lan. Taking Amiodarone 200 mg 0.5 tab po daily at bedtime, Imdur 30 mg once daily, Lopressor 25 mg 1 tab po bid, Losartan 100 mg 1.5 tab po once daily, Lasix 40 mg 0.5 tab daily, Amlodipine 5 mg once daily. Thyroid: Taking Pork Thyroid 60-65 mg two tabs in the am. DM: Checks BS once daily, FBS below 90's. Admits to occ low sugars and elevated sugars of 140. Doeshave neuropathy in feet. Taking Metformin 1,000 mg 1 tablet daily and Glipizide 10 mg 2 pill daily.Metformin was decrease to 1 pill daily last visit. Neuropathy & RLS & Fibro: Controlled on Gabapentin 300 mg 2 pills at bedtime. PRAKASH: doing well with the CPAP at 12 cm of water. Uses [employer]. Waiting on his machine due to recall. [facility] Has 29% on the R side and 30% on the L side. Got a 10% disability. Wears hearing aids b/l, but found he was tone deaf. Asking if he needs to have fluid drained from his lung again as he did in 10/2020. - Has Adv Dir/Living Will. [facility] with [facility], last done [address] Pleitez yearly. Past medical history, appointments, medications, allergies reviewed. Previous Medical History PAST MEDICAL HISTORY Diagnosis Date AAA (abdominal aortic aneurysm) ([facility]) conflicting results Anxiety Bladder cancer ([facility]) [address] Foreman BPH (benign prostatic hyperplasia) BPPV (benign paroxysmal positional vertigo) Carpal tunnel syndrome s/p release Central sleep apnea Coronary artery disease s/p CABG. Dr. Varela Diabetes mellitus, type II ([facility]) Diabetic retinopathy (HCC) OU Diverticulosis Fibromyalgia Hard of hearing Hypertension Hypothyroidism Insomnia Left elbow fracture Lipoma of anterior chest wall s/p resection Myocardial infarction (HCC) x3 Obesity (BMI 30-39.9) PRAKASH (obstructive sleep apnea) on CPAP Pulmonary nodules conflicting studies Restless leg syndrome Rheumatoid arthritis (HCC) Trigger finger Previous Surgical History PAST SURGICAL HISTORY Procedure Laterality Date ARTHRP KNE CONDYLE&PLATU MEDIAL&LAT COMPARTMENTS Bilateral x4 each CABG (3) VEIN GRAFTS & ARTERIAL GRAFT(S) 2003 CARPAL TUNNEL Bilateral CHOLECYSTECTOMY open COLONOSCOPY 07/14/2021 No repeat due to age. EGD W/O BRSH SPEC VARICIES INJ 07/14/2021 PAST SURGICAL HISTORY OF Left Reverse shoulder replacement PAST SURGICAL HISTORY OF Bilateral rotator cuff tear repair PAST SURGICAL HISTORY OF Left elbow fracture repair PAST SURGICAL HISTORY OF Right elbow-bone chip repair PAST SURGICAL HISTORY OF Left trigger finger release PAST SURGICAL HISTORY OF Left tumor resection from rib PAST SURGICAL HISTORY OF prostate surgery PAST SURGICAL HISTORY OF 03/08/2019 TURP, diagnostic cysto Family History FAMILY HISTORY Problem Relation Age of Onset Psychiatry Mother suicide Psychiatry Father suicide Heart Attack Sister Diabetes Brother type I other (celiac disease) Brother Alcohol/Drug Brother Blood Clots Brother Alzheimer's Disease Brother Heart disease Brother other (Pulmonday disease) Brother No Known Problems Brother No Known Problems Maternal Grandmother No Known Problems Maternal Grandfather No Known Problems Paternal Grandmother No Known Problems Paternal Grandfather Patient Allergies ALLERGIES Allergen Reactions Amlodipine Rash, Swelling Hctz [Hydrochloroth* Other: See Comments hyponatremia Lasix [Furosemide] Other: See Comments Liothyronine Other: See Comments Mouth sores Morphine Other: See Comments sick Cmupfwj-Krr-Lsd Red* Other: See Comments Mouth sores. Failed multiple statins Sulfa (Sulfonamide * Other: See Comments Mouth sores Synthroid [Levothyr* Other: See Comments Mouth sores. BRAND caused Diarrhea Current Medications Current Outpatient Medications on File Prior to Visit Medication Sig metFORMIN (GLUCOPHAGE) 1,000 mg tablet Take 1 tablet by mouth daily with dinner. amiodarone (PACERONE) 200 mg tablet Taking 0.5 tab at bedtime thyroid,pork (ARMOUR THYROID ORAL) Take 60-65 mg by mouth once daily. Takes two tablets in the morning amiodarone (PACERONE) 200 mg tablet Taking 0.5 tab at bedtime metoprolol tartrate, short acting, (LOPRESSOR) 25 mg tablet Take 1 tablet by mouth twice daily. losartan (COZAAR) 100 mg tablet TAKE 1 AND 1/2 TABLETS ONCEDAILY gabapentin (NEURONTIN) 300 mg capsule Take 1 capsule by mouth twice daily for 180 days. (Patient taking differently: Take 300 mg by mouth daily at bedtime. Takes two capsules at bedtime) glipiZIDE (GLUCOTROL XL) 10mg 24 hr tablet Take 1 tablet by mouth once daily. furosemide (LASIX) 40 mg tablet Take 0.5 tablets by mouth once daily. polyethylene glycol 3350 (MIRALAX) 17 gram/dose powder Take 289 g by mouth once daily. Dissolve dose in 4 - 8 ounces of liquid and take as directed. isosorbide mononitrate ER (IMDUR) 30 mg 24 hr tablet Take 1 tablet by mouth once daily. amLODIPine (NORVASC) 5 mg tablet Take 1 tablet by mouth once daily. acetaminophen (TYLENOL) 325 mg tablet 650 mg every 4 hours as needed. pantoprazole DR (PROTONIX) 40 mg tablet Take 1 tablet by mouth daily before breakfast. Take on empty stomach, 1/2 hr before meal. CPAP Initiate CPAP @ 12 cm of water with humidification. Mask (per patient preference) optional chin strap (if indicated) , filters, tubing, humidifier and lifetime supplies. aspirin, enteric coated (ASPIRIN, ENTERIC COATED) 81 mg EC tablet Take 81 mg by mouth once daily. cholecalciferol (VITAMIN D-3) 5,000 unit tab Take 5,000 Units by mouth once daily. cyanocobalamin, vitamin B-12, (VITAMIN B-12 ORAL) Take by mouth once daily. 2000 mg No current facility-administered medications on file prior to visit. Social History Social History Tobacco Use Smoking status: Former Smoker Quit date: 06/29/1966 Years since quittin.1 Smokeless tobacco: Never Used Tobacco comment: when he was 15 years old Vaping Use Vaping Use: Never used Substance Use Topics Alcohol use: Yes Comment: rare Drug use: No EXAM: BP 138/80 (BP Site: Left Arm, BP Position: Sitting, BP Cuff Size: Regular Adult) Pulse (!) 52 Resp 16 Wt 101.6 kg (224 lb) SpO2 98% BMI 34.06 kg/m General Appearance: Well appearing, alert, in no acute distress, well-hydrated, well nourished. andObese. Neck: Supple, no adenopathy; thyroid symmetric, normal size, no bruits. Lungs: Lungs clear to auscultation. No wheezing, rhonchi, rales.. Heart: RRR without murmur, gallop, or rubs. No ectopy. Abdomen: Normal abdominal exam, Abdomen soft, slight tenderness. Bowel sounds normal. No masses, organomegaly. Possible nerve pain where hernia is located. Health Maintenance List ABDOMINAL AORTIC ANEURYSM SCREENING Never done SHINGRIX VACCINE(1 of 2) Never done DILATED RETINAL EXAM due on 10/08/2018 DIABETIC FOOT EXAM due on 04/24/2020 ADVANCE DIRECTIVE DISCUSSION Never done INFLUENZA(1) due on 10/16/2021 COVID-19 VACCINE(1) due on 01/10/2022 DEPRESSION SCREENING due on 08/22/2021 HBA1C due on 10/19/2021 URINE ALBUMIN:CREATININE RATIO due on 04/21/2022 LDL CHOLESTEROL due on 04/21/2022 ANNUAL PCP TEAM CHRONIC DISEASE VISIT due on 04/25/2022 BP CONTROLLED (<130/80) due on 06/30/2022 DTAP,TDAP,TD(2 - Tdap) due on 02/01/2023 COLORECTAL CANCER SCREENING due on 07/15/2031 HEPATITIS C SCREENING Completed PNEUMOVAX AGE 65 AND OVER WITH 5YR LOOKBACK Completed MENINGOCOCCAL CONJUGATE Aged Out Data reviewed Appointment on 07/18/2021 Component Date Value Protein, Total 07/18/2021 7.1 Albumin 07/18/2021 4.2 Calcium, Total 07/18/2021 9.8 Bilirubin, Total 07/18/2021 0.3 Alkaline Phosphatase 07/18/2021 84 AST 07/18/2021 26 ALT 07/18/2021 16 Glucose 07/18/2021 106 (A) BUN 07/18/2021 15 Creatinine 07/18/2021 1.25 (A) Sodium 07/18/2021 141 Potassium 07/18/2021 4.0 Chloride 07/18/2021 104 CO2 07/18/2021 27 Anion Gap 07/18/2021 10 Estimated Glomerular Michael* 07/18/2021 61 Hemoglobin A1C 07/18/2021 7.0 (A) Estimated Average Glucose 07/18/2021 154 ASSESSMENT/PLAN: 1. Type 2 diabetes mellitus without complication, without long-term current use of insulin (HCC) - ICD9: 250.00, ICD10: E11.9 (primary diagnosis) Controlled. - Continue current medications 2. Essential hypertension - ICD9: 401.9, ICD10: I10 - good control - Continue current medication(s) - Recommended regular aerobic exercise. - Recommend home blood pressure monitoring, to bring results in on next visit - Goal of BP <130/80 3. Mixed hyperlipidemia - ICD9: 272.2, ICD10: E78.2 - good control - Continue current medication. - Encouraged following a low fat, low cholesterol diet. - Discussed the benefits of regular aerobic exercise and weight loss. 4. Acquired hypothyroidism - ICD9: 244.9, ICD10: E03.9 - Instructed patient on importance of taking on an empty stomach either first thing in the morning or at bedtime. - Continue current medication regimen. 5. Neuropathy - ICD9: 355.9, ICD10: G62.9 - Stable - Continue current medication regimen. 6. Fibromyalgia - ICD9: 729.1, ICD10: M79.7 - Stable - Continue current medication regimen. 7. RLS (restless legs syndrome) - ICD9: 333.94, ICD10: G25.81 - Stable - Continue current medication regimen. 8. Generalized abdominal pain - ICD9: 789.07, ICD10: R10.84 - Continue current medication regimen. - PANTOPRAZOLE 40 MG TABLET,DELAYED RELEASE 9. S/P CABG (coronary artery bypass graft) - ICD9: V45.81, ICD10: Z95.1 - Cont f/u with Cardio 10. PRAKASH (obstructive sleep apnea) - ICD9: 327.23, ICD10: G47.33 - Stable 6 mo f/u with labs. Pt to update office if breathing gets worse. I agree with the Chief Complaint, ROS, and Past Histories independently gathered by the clinical production support consultant and the remaining scribed note accurately describes my personal service to the patient. Medical Decision Making: Problems: Moderate: 2+ stable chronic illnesses Risk: Moderate: Drug management Medical Decision Making Level: 4 - Moderate Allan Rosario MD The documentation for this note was completed by Joann Crum Ma acting as scribe for Allan Rosario MD. July 24, 2021 8:23 AM. Joann Crum Ma documented in this encounterAd[facility]03-28-2022 History and physical note * Eze Grijalva MD - 07/14/2021 8:00 AM EDT REASON FOR VISIT Salome Sheth is a 70 year old male who is scheduled at the request of Allan Rosario for No chief complaint on file.. My final recommendations will be communicated back to the requesting physician by the way of the shared medical record, fax, or via [place] Mail The patient was seen by on 01/10/2021 on, leading to this consultation. That note has been reviewed and part as follows: HPI Salome Sheth is a 70 year old male who presents here today for a 2 mo f/u. Pt here today with his . Pt following up from recent TCM back in October and most recent visit with Marina Hudson CNP on 12/18/20 for blood in stool. Pt recently at [facility] on 01/06/21 for abdominal pain was d/c home same day to f/uwith PCP. Pt does taking Protonix 40 mg daily. Pt feels a lot of issues stem from him not being able to have BM's at times. ER Provider feels the bowel going under his hernia is causing him symptoms. Stool - Pt's stool card when completed was negative for blood. Pt was advised by Marina Hudson CNP to discuss with his Underwriter about his Eliquis medication. Previously was noted that Dr. Lan wanted him to stop the medication. Pt is taking Aspirin 81 mg daily, Eliquis still on hold. Cardiology wanted pt to discuss with this office. Pt denies any other bloody stools. Cardiac/HTN - Pt was admitted into [facility] for non-ST elevation, A-fib, Flash pulmonary edema, CAD, S/PPTCA, S/P CABG, Hypertension emergency and Hyperlipidemia in early October of this year. Pt f/u up in office for a TCM on 10/25/20. Pt f/u with [facility] on 11/26/20. Pt currently taking Amiodarone 200 mg 0.5 tab po daily at bedtime, Imdur 30 mg once daily, Lopressor 25 mg 1 tab po bid, Losartan 100 mg 1.5 tab po once daily, Lasix 40 mg 0.5 tab daily, Amlodipine 5 mg once daily, Eliquis 2.5 mg 1 tab po bid. DM - Checks sugars daily at home with FBS ranging from 66-153 (average 80-110) . Reports feeling bad when sugars are in the 70's, couple 60's on his records. Does get shaky when this occurs. Report neuropathy in b/l hands and feet. On current regimen of Glipizide 10 mg 2 tabs daily. Metformin was held at the hospital when admitted in October, but he is currently taking Metformin 1,000 mg 1.5 tabs podaily RLS/Neuropathy - On current regimen of Gabapentin 300 mg 1 tab po bid. Overall this keeps symptoms stable. Thyroid - Taking Thyroid, Pork 120 mg daily. PRAKASH - On CPAP at 12 cm of water. Does well with sleep machine, but feels he may need more air. Doesn't want another sleep study. HM - Declines wanting Covid Vaccine. Declines Flu shot. Past medical history, appointments, medications, allergies reviewed. HISTORY OF PRESENT ILLNESS Salome Sheth is a 70 year old male AAA, CAD, CA x3, pulmonary nodules, PRAKASH on CPAP, obesity, insomina, hypothyroidism, HTN, Hard of Hearing, fibromyalgia, diabetic retinopathy, DM, BPH, Bladder cancer, anxiety. who presents today for an evaluation of anemia and blood in stool. Reports a change started in September when he had a episode when he was trying to go to the bathroom broke out in a cold sweat, dry heaving and the next thing he remembers he woke up at the hospital with oxygen. Patient reports when he has to go to the bathroom he really has to push and but when he is able to have a bowel movement he reports having diarrhea. Patient reports he does have abdominal pain when he having a bowel movement 'Sucker punch - deniesblack stool or blood in stool - Since then he is eating 5 prunes - benefiber 2 TBP in coffee - 4oz prune juice - If he does not do this he will not have BM - Having 1 BM daily. Patient reports it's been over 10 years since last colonoscopy they could not complete d/t heart rate dropping and aborted procedure. This was done at [facility]. Since then he does cologuard which are all negative. Reports he used to live on tomatoes - now he can't even touch it. Taking pantoprazole. pots diet heis eating 1/3 of the food. Patient reports feeling full fast and small bowel of anything will fill him up. He is over eats he will develop pain Recently had chili and this made him sick PRIOR TEST RESULTS Imaging/Procedures: 01/06/21 CT ABD/PEL IMPRESSION: 1. No acute findings. 2. Diverticulosis, no acute diverticulitis. 3. Prostatic enlargement. Component Latest Ref Rng & Units 12/18/2020 12/19/2020 WBC 3.70 - 11.00 k/uL 5.05 RBC 4.20 - 6.00 m/uL 4.26 Hemoglobin 13.0 - 17.0 g/dL 11.9 (L) Hematocrit 39.0 - 51.0 % 36.8 (L) MCV 80.0 - 100.0 fL 86.4 MCH 26.0 - 34.0 pG 27.9 MCHC 30.5 - 36.0 g/dL 32.3 RDW-CV 11.5 - 15.0 % 15.4 (H) Platelet Count 150 - 400 k/uL 224 MPV 9.0 - 12.7 fL 10.7 Neut% % 57.4 Abs Neut (ANC) 1.45 - 7.50 k/uL 2.89 Lymph% % 30.1 Abs Lymph 1.00 - 4.00 k/uL 1.52 Cottle% % 10.3 Abs Cottle <0.87 k/uL 0.52 Eosin% % 1.4 Abs Eosin <0.46 k/uL 0.07 Baso% % 0.8 Abs Baso <0.11 k/uL 0.04 Nucleated Reds 0 /100 WBC 0.0 Absolute nRBC <0.01 k/uL <0.01 Diff Type Auto Diff Protein, Total 6.3 - 8.0 g/dL 7.4 Albumin 3.9 - 4.9 g/dL 4.6 Calcium 8.5 - 10.2 mg/dL 9.8 Bilirubin, Total 0.2 - 1.3 mg/dL 0.4 Alkaline Phosphatase 38 - 113 U/L 80 AST 14 - 40 U/L 28 Glucose 74 - 99 mg/dL 184 (H) BUN 9 - 24 mg/dL 15 Creatinine 0.73 - 1.22 mg/dL 1.26 (H) Sodium 136 - 144 mmol/L 137 Potassium 3.7 - 5.1 mmol/L 4.2 Chloride 97 - 105 mmol/L 100 CO2 22 - 30 mmol/L 23 Anion Gap 9 - 18 mmol/L 14 ALT 10 - 54 U/L 24 eGFR- >60 eGFR-All Other Races . 56 Hemoglobin A1C 4.3 - 5.6 % 7.8 (H) Estimated Average Glucose mg/dL 177 Occult Blood, Stool Negative Negative PAST MEDICAL HISTORY PAST MEDICAL HISTORY Diagnosis Date AAA (abdominal aortic aneurysm) (HCC) conflicting results Anxiety Bladder cancer (HCC) [address] Foreman BPH (benign prostatic hyperplasia) BPPV (benign paroxysmal positional vertigo) Carpal tunnel syndrome s/p release Central sleep apnea Coronary artery disease s/p CABG. Dr. Varela Diabetes mellitus, type II (HCC) Diabetic retinopathy (HCC) OU Diverticulosis Fibromyalgia Hard of hearing Hypertension Hypothyroidism Insomnia Left elbow fracture Lipoma of anterior chest wall s/p resection Myocardial infarction (HCC) x3 Obesity (BMI 30-39.9) PRAKASH (obstructive sleep apnea) on CPAP Pulmonary nodules conflicting studies Restless leg syndrome Rheumatoid arthritis (HCC) Trigger finger PAST SURGICAL HISTORY PAST SURGICAL HISTORY Procedure Laterality Date CABG (3) VEIN GRAFTS & ARTERIAL GRAFT(S) 2003 CARPAL TUNNEL Bilateral CHOLECYSTECTOMY open PAST SURGICAL HISTORY OF Left Reverse shoulder replacement PAST SURGICAL HISTORY OF Bilateral rotator cuff tear repair PAST SURGICAL HISTORY OF Left elbow fracture repair PAST SURGICAL HISTORY OF Right elbow-bone chip repair PAST SURGICAL HISTORY OF Left trigger finger release PAST SURGICAL HISTORY OF Left tumor resection from rib PAST SURGICAL HISTORY OF prostate surgery PAST SURGICAL HISTORY OF 03/08/2019 TURP, diagnostic cysto TOTAL KNEE REPLACEMENT Bilateral x4 each CURRENT MEDICATIONS Current Outpatient Medications Medication Sig Dispense Refill amiodarone (PACERONE) 200 mg tablet Taking 0.5 tab at bedtime furosemide (LASIX) 40 mg tablet Take 0.5 tablets by mouth once daily. 90 tablet 3 metoprolol tartrate, short acting, (LOPRESSOR) 25 mg tablet Take 1 tablet by mouth twice daily. 180tablet 3 gabapentin (NEURONTIN) 300 mg capsule Take 1 capsule by mouth twice daily for 180 days. 180 capsule1 glipiZIDE (GLUCOTROL XL) 10mg 24 hr tablet Take 1 tablet by mouth once daily. 180 tablet 0 metFORMIN (GLUCOPHAGE) 1,000 mg tablet Take 1 tablet by mouth daily with dinner. isosorbide mononitrate ER (IMDUR) 30 mg 24 hr tablet Take 1 tablet by mouth once daily. 90 tablet 3 amLODIPine (NORVASC) 5 mg tablet Take 1 tablet by mouth once daily. 90 tablet 3 acetaminophen (TYLENOL) 325 mg tablet 650 mg every 4 hours as needed. pantoprazole DR (PROTONIX) 40 mg tablet Take 1 tablet by mouth daily before breakfast. Take on empty stomach, 1/2 hr before meal. 90 tablet 3 losartan (COZAAR) 100 mg tablet Take 1.5 tablets by mouth once daily. 135 tablet 3 thyroid, pork, 60 mg Take 120 mg PO daily. 60 tablet 5 CPAP Initiate CPAP @ 12 cm of water with humidification. Mask (per patient preference) optional chin strap (if indicated) , filters, tubing, humidifier and lifetime supplies. 1 Device 0 aspirin, enteric coated (ASPIRIN, ENTERIC COATED) 81 mg EC tablet Take 81 mg by mouth once daily. Cholecalciferol, Vitamin D3, (VITAMIN D) 1,000 unit cap Take 1,000 Units by mouth twice daily. cyanocobalamin (VITAMIN B-12) 1,000 mcg tab Take 1,000 mcg by mouth once daily. No current facility-administered medications for this visit. ALLERGIES ALLERGIES Allergen Reactions Amlodipine Rash, Swelling Hctz [Hydrochloroth* Other: See Comments hyponatremia Lasix [Furosemide] Other: See Comments Liothyronine Other: See Comments Mouth sores Morphine Other: See Comments sick Onfpztd-Fvm-Znd Red* Other: See Comments Mouth sores. Failed multiple statins Sulfa (Sulfonamide * Other: See Comments Mouth sores Synthroid [Levothyr* Other: See Comments Mouth sores. BRAND caused Diarrhea SOCIAL HISTORY Social History Tobacco Use Smoking status: Former Smoker Quit date: 06/29/1966 Years since quittin.6 Smokeless tobacco: Never Used Vaping Use Vaping Use: Never used Substance Use Topics Alcohol use: Yes Comment: 2-4 drinks per day Drug use: No FAMILY HISTORY (grandparents, parents, brothers, sisters, aunts, or uncles) Ulcerative Colitis: No Crohn's Disease: No Colon Cancer: No Colon Polyps: No IBS: No Celiac disease: No PHYSICAL EXAMINATION There were no vitals taken for this visit. General Appearance: Well appearing, alert, in no acute distress, well-hydrated, well nourished. Eyes: PERRLA, conjunctiva and sclera normal Oropharynx: Lips, tongue, and oral mucosa normal. There is no thrush or oral ulcers. Lungs:breath sounds clear to auscultation bilaterally, no crackles, rhonchi, or wheezes Heart: regular rate and rhythm, no murmurs or gallops. Abdomen: not distended, normal bowel sounds, soft and depressible, no guarding or rebound, no palpable mass, no organomegaly Rectal exam: Deferred. Extremities: no cyanosis or edema Skin: no jaundice, no spider angiomas, no palmar erythema Neuro:alert, oriented x 3, pleasant and in no acute distress IMPRESSION No diagnosis found. Differential diagnosis includes: PLAN Assessment/Plan (R19.5) Change in stool (primary encounter diagnosis) (R10.9) Abdominal pain, unspecified abdominal location (Z12.11) Colon cancer screening (R12) Heartburn (R68.81) Early satiety 1. Abdominal pain, unspecified abdominal location - Will need cardiac clearance before colonoscopy he has a upcoming appointment 03/18. Colonoscopy will be scheduled at [place]. - CONSULT TO GASTROENTEROLOGY - peg 3350-Electrolytes (GOLYTELY) 236-22.74-6.74 -5.86 gram suspension; Take 4,000 mL by mouth onetime only for 1 dose. Refer to printed prep instructions from your provider. Dispense: 1 Each; Refill: 0 - COLONOSCOPY GEN ANES; Future - EGD GEN ANES; Future 2. Change in stool - COLONOSCOPY GEN ANES; Future 3. Colon cancer screening - COLONOSCOPY GEN ANES; Future 4. Heartburn - EGD GEN ANES; Future 5. Early satiety - EGD GEN ANES; Future Follow up in office 3 months/PRN. Recommended to please call office/go to ER if fever, chills, chest pain, SOB, diarrhea, nausea, emesis, worsening abdominal pain, dehydration occurs I spent 30 minutes in the visit, with more than 50% of the total [id number]-gy-jiwe time of the visit in counseling / coordination of care. I have confirmed and edited as necessary, the PFSH and ROS obtained by others. Halina Garzon APRN.CR[employer]HE[employer] BEADER February 25, 2021 * Eze Grijalva MD - 07/14/2021 7:28 AM EDT UPDATED HISTORY AND PHYSICAL EXAMINATION SERVICE DATE: 07/14/2021 SERVICE TIME: 8:30 AM PHYSICAL EXAM MUST BE COMPLETED ON ADMISSION The History and Physical (completed in the past 30 days) has been reviewed and the patient has beenexamined. The contents accurately reflect the patient's condition with the following additions or revisions since the H&P was completed. Examination indicates no changes. This H&P can be found in the attached. SIGNATURE: Eze Grijalva MD PATIENT NAME: Salome Sheth DATE: July 14, 2021 TIME: 8:30 AM [facility] History of Past illness Narrative* Problem Noted Date Diagnosed Date Resolved Date Abdominal aortic aneurysm (A AA) without rupture 06/30/2021 07/30/2023 Last Assessment & Plan: Assessment: hx, but ?, last Abd aorta US 11/2020, showed no aneurysm or stenosis per cardiology note Bladder cancer 04/19/2011 07/30/2023 Overview: Seeing Dr. Foreman Last Assessment & Plan: Assessment: s/p excision, denies chemo or XRT Rheumatoid arthritis 024 Last Assessment & Plan: Assessment: rx as needed Obesity (BMI 30-39.9) 2021 documented as of this encounter (statuses as of 07/30/2023) [facility] Miscellaneous Notes* Telephone Encounter - Sharad Wagner - 04/02/2021 4:27 PM EST cardiac clearance obtained * Telephone Encounter - Sharad Wagner - 03/21/2021 4:24 PM EST 07-14-2021 Colon EGD [place] * Telephone Encounter - Sharad Wagner - 03/20/2021 1:57 PM EST 1st failed attempt left message Sharad Wagner * Telephone Encounter - Cely Burton LPN - 03/17/2021 10:52 AM EST Patient is needing scheduled at [place] with Dr. Grijalva for a colonoscopy and EGD. Cardiac clearance has been requested from Dr. Lan. DX: Abdominal pain, unspecified abdominal location [R10.9] Heartburn [R12] Early satiety [R68.81] Change in stool [R19.5] Colon cancer screening [Z12.11] Verbal and written instructions given. [facility] History of Present illness Narrative* Gail Farnsworth RT(R) - 08/22/2020 10:10 AM EDT Radiology Service Progress Note PATIENT NAME: Salome Sheth DATE OF SERVICE: August 22, 2020 TIME: 10:12 AM PATIENT IDENTITY VERIFICATION COMPLETED USING TWO (2) IDENTIFIERS: Name and Date of confirmedby patient verbally. FALL SCREENING: Has the patient had 2 falls in the last year or 1 fall with injury or currently using an Ambulatory Assistive Device (Walker, Cane, Wheelchair, Crutches, etc.)? No PATIENT GENDER DATA: Male PATIENT RELEVANT IMPLANT DATA REVIEWED: Not Applicable RADIOLOGY DEPARTMENT: General X-ray: Exam(s) Completed: Chest X-Ray PERIPHERAL IV DATA: Not applicable SIGNED BY: RT Karlos(R) August 22, 2020 10:12 AM documented [facility] encounterAd[facility]* Diagnosis Onset Date Resolution Status Atherosclerotic heart diseas e of [place] coronary artery without angina pectoris acute History of ischemic cardiomyopathy acute Paroxysmal atrial fibrillation with RVR acute Pre-op evaluation acute Hypertension chronic S/P CABG (coronary artery bypass graft) chronic S/P PTCA (percutaneous trans luminal coronary angioplasty) [facility] Work Phone: Evaluation note* Diagnosis Pain of upper abdomen Abdominal pain, other specified site Heartburn Early satiety Change in stool Nonspecific abnormal finding in stool contents documented in this encounter [facility] noteNo assessment information availableWUniversity Hospitals [facility] Work Phone: Evaluation note* Diagnosis Type 2 diabetes mellitus without complication, without long-term current use of insulin (HCC)- Primary Essential hypertension Unspecified essential hypertension Mixed hyperlipidemia Acquired hypothyroidism Unspecified hypothyroidism Neuropathy Mononeuritis of unspecified site Fibromyalgia Mylagia and myositis, unspecified RLS (restless legs syndrome) Restless legs syndrome (RLS) Generalized abdominal pain Abdominal pain, generalized S/P CABG (coronary artery bypass graft) Postsurgical aortocoronary bypass status PRAKASH (obstructive sleep apnea) Obstructive sleep apnea (adult) (pediatric) [facility]* Diagnosis Lung nodules Other nonspecific abnormal finding of lung field [facility]* Diagnosis Abdominal aortic aneurysm (AAA) without rupture ([facility])- Primary Lung nodules Other nonspecific abnormal finding of lung field Lung nodule, solitary Solitary pulmonary nodule documented in this encounter [facility] note* Diagnosis Constipation, unspecified constipation type documented in this encounter [facility] note* Diagnosis Onset Date Resolution Status Atrial fibrillation acute On amiodarone therapy acute Atherosclerotic heart diseas [place] of [place] coronary artery without angina pectoris chronic History of ischemic cardiomyopathy chronic Hypertension chronic S/P CABG (coronary artery bypass graft) chronic S/P PTCA (percutaneous trans luminal coronary angioplasty) [facility] Work Phone: Evaluation note* Diagnosis Onset Date Resolution Status Atrial fibrillation acute On amiodarone therapy acute Atherosclerotic heart diseas [place] coronary artery without angina pectoris chronic History of ischemic cardiomyopathy chronic Hypertension chronic S/P CABG (coronary artery bypass graft) chronic S/P PTCA (percutaneous trans luminal coronary angioplasty) chronic Atrial fibrillation acute On amiodarone therapy acute Atherosclerotic heart diseas [place] of [place] coronary artery without angina pectoris chronic Chest mass chronic History of ischemic cardiomyopathy chronic Hypertension chronic S/P CABG (coronary artery bypass graft) chronic S/P PTCA (percutaneous trans luminal coronary angioplasty) [facility] Work Phone: Evaluation note* Diagnosis Type 2 diabetes mellitus with diabetic neuropathy, without long-term current use of insulin (HCC)- Primary Neuropathy Mononeuritis of unspecified site Essential hypertension Unspecified essential hypertension Coronary artery disease involving [place] coronary artery of [place] heart without angina pectoris Mixed hyperlipidemia PRAKASH (obstructive sleep apnea) Obstructive sleep apnea (adult) (pediatric) Lung nodule, solitary Solitary pulmonary nodule Acquired hypothyroidism Unspecified hypothyroidism [facility]* Diagnosis Acquired hypothyroidism Unspecified hypothyroidism [facility]* Diagnosis Onset Date Resolution Status Atrial fibrillation acute On amiodarone therapy acute Atherosclerotic heart diseas [place] coronary artery without angina pectoris chronic Chest mass chronic History of ischemic cardiomyopathy chronic Hypertension chronic S/P CABG (coronary artery bypass graft) chronic S/P PTCA (percutaneous trans luminal coronary angioplasty) chronic Acute respiratory failure with hypoxia acute BPH (benign prostatic hyperplasia) acute CAD (coronary artery disease) acute Diabetes acute Flash pulmonary edema acute HLD (hyperlipidemia) acute Hypertensive emergency acute Non-ST elevation (NSTEMI) myocardial infarction acute PRKAASH (obstructive sleep apnea) acute Paroxysmal atrial fibrillation with RVR acute Respiratory failure with hypoxia acute Thrombocytopenia acute Thyroid disease acute Atherosclerotic heart diseas [place] of [place] coronary artery without angina pectoris chronic History of ischemic cardiomyopathy chronic Hypertension chronic S/P CABG (coronary artery bypass graft) chronic S/P PTCA (percutaneous trans luminal coronary angioplasty) [facility] Work Phone: Evaluation note* Diagnosis Onset Date Resolution Status Atrial fibrillation acute On amiodarone therapy acute Atherosclerotic heart diseas [place] of [place] coronary artery without angina pectoris chronic Chest mass chronic History of ischemic cardiomyopathy chronic Hypertension chronic S/P CABG (coronary artery bypass graft) chronic S/P PTCA (percutaneous trans luminal coronary angioplasty) chronic BPH (benign prostatic hyperplasia) acute CAD (coronary artery disease) acute Diabetes acute Flash pulmonary edema acute HLD (hyperlipidemia) acute Hypertensive emergency acute PRAKASH (obstructive sleep apnea) acute Paroxysmal atrial fibrillation with RVR acute Respiratory failure with hypoxia acute Thrombocytopenia acute Thyroid disease acute Atherosclerotic heart diseas [place] of [place] coronary artery without angina pectoris chronic History of ischemic cardiomyopathy chronic S/P CABG (coronary artery bypass graft) [facility] Work Phone: Evaluation note* Diagnosis Generalized abdominal pain- Primary Abdominal pain, generalized Gastroesophageal reflux disease with esophagitis without hemorrhage Change in bowel habits Other symptoms involving digestive system [facility]* Diagnosis Hospital discharge follow-up- Primary Other follow-up examination Fibromyalgia Mylagia and myositis, unspecified Type 2 diabetes mellitus with diabetic neuropathy, without long-term current use of insulin (HCC) Ischemic cardiomyopathy Other specified forms of chronic ischemic heart disease Paroxysmal A-fib (HCC) Atrial fibrillation Coronary artery disease involving [place] coronary artery of [place] heart without angina pectoris Essential hypertension Unspecified essential hypertension Mixed hyperlipidemia PRAKASH (obstructive sleep apnea) Obstructive sleep apnea (adult) (pediatric) Acquired hypothyroidism Unspecified hypothyroidism [facility]* Diagnosis Onset Date Resolution Status Atrial fibrillation acute On amiodarone therapy acute Chest mass chronic Acute respiratory failure with hypoxia resolved Flash pulmonary edema resolv ed Hypertensive emergency resol kristi Non-ST elevation (NSTEMI) myocardial infarction resolved Respiratory failure with hypoxia resolved Thrombocytopenia resolved Atrial fibrillation acute Fatigue acute [facility] Work Phone: Evaluation note* Diagnosis PRAKASH (obstructive sleep apnea)- Primary Obstructive sleep apnea (adult) (pediatric) Type 2 diabetes mellitus without complication, without long-term current use of insulin (HCC) Type 2 diabetes mellitus with diabetic neuropathy, without long-term current use of insulin (HCC) Essential hypertension Unspecified essential hypertension Coronary artery disease involving [place] coronary artery of [place] heart without angina pectoris Rheumatoid arthritis, involving unspecified site, unspecified rheumatoid factor presence Paroxysmal A-fib (HCC) Atrial fibrillation [facility]* Diagnosis Onset Date Resolution Status Acute respiratory failure with hypoxia resolved Flash pulmonary edema resolv ed Hypertensive emergency resol kristi Non-ST elevation (NSTEMI) myocardial infarction resolved Respiratory failure with hypoxia resolved Thrombocytopenia resolved Atrial fibrillation acute Fatigue acute Chest mass chronic Anemia acute Constipation acute Early satiety chronic Epigastric pain chronic [facility] Work Phone: Evaluation note* Diagnosis Onset Date Resolution Status Atrial fibrillation acute Fatigue acute Chest mass chronic Anemia acute Constipation acute Early satiety chronic Epigastric pain chronic [facility] Work Phone: Evaluation note* Diagnosis Onset Date Resolution Status Chest mass chronic Anemia acute Constipation acute Early satiety chronic Epigastric pain chronic Atrial fibrillation acute Atherosclerotic heart diseas [place] of [place] coronary artery without angina pectoris chronic Duodenitis acute Gastritis acute Hypergastrinemia acute [facility] Work Phone: Evaluation note* Diagnosis Type 2 diabetes mellitus with diabetic neuropathy, without long-term current use of insulin (HCC)- Primary Abdominal aortic aneurysm (AAA) without rupture, unspecified part ([facility]) Essential hypertension Unspecified essential hypertension Mixed hyperlipidemia Coronary artery disease involving [place] coronary artery of [place] heart without angina pectoris PRAKASH (obstructive sleep apnea) Obstructive sleep apnea (adult) (pediatric) Acquired hypothyroidism Unspecified hypothyroidism [facility]* Diagnosis Generalized abdominal pain Abdominal pain, generalized [facility]* Diagnosis Essential hypertension Unspecified essential hypertension Coronary artery disease involving [place] coronary artery of [place] heart without angina pectoris [facility]* Diagnosis Essential hypertension Unspecified essential hypertension Coronary artery disease involving [place] coronary artery of [place] heart without angina pectoris [facility]* Diagnosis Essential hypertension Unspecified essential hypertension Coronary artery disease involving [place] coronary artery of [place] heart without angina pectoris [facility]* Diagnosis Type 2 diabetes mellitus with diabetic neuropathy, without long-term current use of insulin ([facility])- Primary Fibromyalgia Mylagia and myositis, unspecified RLS (restless legs syndrome) Restless legs syndrome (RLS) Neuropathy Mononeuritis of unspecified site Essential hypertension Unspecified essential hypertension Coronary artery disease involving [place] coronary artery of [place] heart without angina pectoris Mixed hyperlipidemia Paroxysmal A-fib ([facility]) Atrial fibrillation PRAKASH (obstructive sleep apnea) Obstructive sleep apnea (adult) (pediatric) Malignant neoplasm of urinary bladder, unspecified site (HCC) Acquired hypothyroidism Unspecified hypothyroidism Benign prostatic hyperplasia, unspecified whether lower urinary tract symptoms present Anxiety Anxiety state, unspecified Class 1 obesity due to excess calories with serious comorbidity and body mass index (BMI) of 34.0 to 34.9 in adult Chronic kidney disease, stage 3a ([facility]) [facility]* Diagnosis RLS (restless legs syndrome) Restless legs syndrome (RLS) Neuropathy Mononeuritis of unspecified site documented in this encounter [facility] note* Diagnosis Onset Date Resolution Status Atrial fibrillation acute Atherosclerotic heart diseas [place] of [place] coronary artery without angina pectoris chronic History of ischemic cardiomyopathy chronic HLD (hyperlipidemia) chronic Hypertension [facility] Work Phone: Evaluation note* Diagnosis Type 2 diabetes mellitus with diabetic neuropathy, without long-term current use of insulin (HCC)- Primary Essential hypertension Unspecified essential hypertension Mixed hyperlipidemia Acquired hypothyroidism Unspecified hypothyroidism Fibromyalgia Mylagia and myositis, unspecified RLS (restless legs syndrome) Restless legs syndrome (RLS) Neuropathy Mononeuritis of unspecified site PRAKASH (obstructive sleep apnea) Obstructive sleep apnea (adult) (pediatric) Gastroesophageal reflux disease with esophagitis without hemorrhage Generalized abdominal pain Abdominal pain, generalized Benign prostatic hyperplasia, unspecified whether lower urinary tract symptoms present Anemia, unspecified type Chronic kidney disease, stage 3a (HCC) Stage 3b chronic kidney disease (HCC) Paroxysmal A-fib (HCC) Atrial fibrillation [facility]* Diagnosis Pre-operative examination- Primary Preoperative examination, unspecified Anemia, unspecified type Blood in stool Benign tumor of ribs, sternum, and clavicle Benign neoplasm of ribs, sternum, and clavicle Malignant neoplasm of urinary bladder, unspecified site (HCC) Anxiety Anxiety state, unspecified Benign prostatic hyperplasia, unspecified whether lower urinary tract symptoms present Coronary artery disease involving [place] coronary artery of [place] heart without angina pectoris Type 2 diabetes mellitus without complication, without long-term current use of insulin (HCC) Essential hypertension Unspecified essential hypertension Fibromyalgia Mylagia and myositis, unspecified Acquired hypothyroidism Unspecified hypothyroidism Lung nodule, solitary Solitary pulmonary nodule Mixed hyperlipidemia PRAKASH (obstructive sleep apnea) Obstructive sleep apnea (adult) (pediatric) S/P coronary artery stent placement Postsurgical percutaneous transluminal coronary angioplasty status Ischemic cardiomyopathy Other specified forms of chronic ischemic heart disease Abdominal aortic aneurysm (AAA) without rupture (HCC) Paroxysmal A-fib (HCC) Atrial fibrillation Class 1 obesity due to excess calories with serious comorbidity and body mass index (BMI) of 33.0 to 33.9 in adult Abdominal aortic aneurysm (AAA) without rupture (HCC)- Primary Lung nodules Other nonspecific abnormal finding of lung field Lung nodule, solitary Solitary pulmonary nodule RLS (restless legs syndrome) Restless legs syndrome (RLS) Neuropathy Mononeuritis of unspecified site documented in this encounter [facility] note* Diagnosis Rib pain on left side Chest pain, unspecified Pre-operative examination- Primary Preoperative examination, unspecified Anemia, unspecified type Blood in stool Benign tumor of ribs, sternum, and clavicle Benign neoplasm of ribs, sternum, and clavicle Malignant neoplasm of urinary bladder, unspecified site (HCC) Anxiety Anxiety state, unspecified Benign prostatic hyperplasia, unspecified whether lower urinary tract symptoms present Coronary artery disease involving [place] coronary artery of [place] heart without angina pectoris Type 2 diabetes mellitus without complication, without long-term current use of insulin (HCC) Essential hypertension Unspecified essential hypertension Fibromyalgia Mylagia and myositis, unspecified Acquired hypothyroidism Unspecified hypothyroidism Lung nodule, solitary Solitary pulmonary nodule Mixed hyperlipidemia PRAKASH (obstructive sleep apnea) Obstructive sleep apnea (adult) (pediatric) S/P coronary artery stent placement Postsurgical percutaneous transluminal coronary angioplasty status Ischemic cardiomyopathy Other specified forms of chronic ischemic heart disease Abdominal aortic aneurysm (AAA) without rupture (HCC) Paroxysmal A-fib (HCC) Atrial fibrillation Class 1 obesity due to excess calories with serious comorbidity and body mass index (BMI) of 33.0 to 33.9 in adult [facility] Diagnosis Pre-operative examination- Primary Preoperative examination, unspecified Anemia, unspecified type Blood in stool Benign tumor of ribs, sternum, and clavicle Benign neoplasm of ribs, sternum, and clavicle Malignant neoplasm of urinary bladder, unspecified site (HCC) Anxiety Anxiety state, unspecified Benign prostatic hyperplasia, unspecified whether lower urinary tract symptoms present Coronary artery disease involving [place] coronary artery of [place] heart without angina pectoris Type 2 diabetes mellitus without complication, without long-term current use of insulin (HCC) Essential hypertension Unspecified essential hypertension Fibromyalgia Mylagia and myositis, unspecified Acquired hypothyroidism Unspecified hypothyroidism Lung nodule, solitary Solitary pulmonary nodule Mixed hyperlipidemia PRAKASH (obstructive sleep apnea) Obstructive sleep apnea (adult) (pediatric) S/P coronary artery stent placement Postsurgical percutaneous transluminal coronary angioplasty status Ischemic cardiomyopathy Other specified forms of chronic ischemic heart disease Abdominal aortic aneurysm (AAA) without rupture (HCC) Paroxysmal A-fib (HCC) Atrial fibrillation Class 1 obesity due to excess calories with serious comorbidity and body mass index (BMI) of 33.0 to 33.9 in adult Abdominal aortic aneurysm (AAA) without rupture (HCC)- Primary Lung nodules Other nonspecific abnormal finding of lung field Lung nodule, solitary Solitary pulmonary nodule Type 2 diabetes mellitus with diabetic neuropathy, without long-term current use of insulin (HCC)- Primary Acquired hypothyroidism Unspecified hypothyroidism Essential hypertension Unspecified essential hypertension Coronary artery disease involving [place] coronary artery of [place] heart without angina pectoris PRAKASH (obstructive sleep apnea) Obstructive sleep apnea (adult) (pediatric) Mixed hyperlipidemia Neuropathy Mononeuritis of unspecified site Stage 3b chronic kidney disease (HCC) Bilateral leg edema Edema Abdominal bloating Flatulence, eructation, and gas pain documented in this encounter [facility] note* Diagnosis Pre-operative examination- Primary Preoperative examination, unspecified Anemia, unspecified type Blood in stool Benign tumor of ribs, sternum, and clavicle Benign neoplasm of ribs, sternum, and clavicle Malignant neoplasm of urinary bladder, unspecified site (HCC) Anxiety Anxiety state, unspecified Benign prostatic hyperplasia, unspecified whether lower urinary tract symptoms present Coronary artery disease involving [place] coronary artery of [place] heart without angina pectoris Type 2 diabetes mellitus without complication, without long-term current use of insulin (HCC) Essential hypertension Unspecified essential hypertension Fibromyalgia Mylagia and myositis, unspecified Acquired hypothyroidism Unspecified hypothyroidism Lung nodule, solitary Solitary pulmonary nodule Mixed hyperlipidemia PRAKASH (obstructive sleep apnea) Obstructive sleep apnea (adult) (pediatric) S/P coronary artery stent placement Postsurgical percutaneous transluminal coronary angioplasty status Ischemic cardiomyopathy Other specified forms of chronic ischemic heart disease Abdominal aortic aneurysm (AAA) without rupture (HCC) Paroxysmal A-fib (HCC) Atrial fibrillation Class 1 obesity due to excess calories with serious comorbidity and body mass index (BMI) of 33.0 to 33.9 in adult Abdominal aortic aneurysm (AAA) without rupture (HCC)- Primary Lung nodules Other nonspecific abnormal finding of lung field Lung nodule, solitary Solitary pulmonary nodule Type 2 diabetes mellitus with diabetic neuropathy, without long-term current use of insulin (HCC)- Primary Bilateral leg edema Edema Abdominal bloating Flatulence, eructation, and gas pain Palpitations Acquired hypothyroidism Unspecified hypothyroidism Essential hypertension Unspecified essential hypertension Mixed hyperlipidemia Stage 3b chronic kidney disease (HCC) Anemia, unspecified type Paroxysmal A-fib (HCC) Atrial fibrillation documented in this encounter [facility] note* Diagnosis Pre-operative examination- Primary Preoperative examination, unspecified Anemia, unspecified type Blood in stool Benign tumor of ribs, sternum, and clavicle Benign neoplasm of ribs, sternum, and clavicle Malignant neoplasm of urinary bladder, unspecified site (HCC) Anxiety Anxiety state, unspecified Benign prostatic hyperplasia, unspecified whether lower urinary tract symptoms present Coronary artery disease involving [place] coronary artery of [place] heart without angina pectoris Type 2 diabetes mellitus without complication, without long-term current use of insulin (HCC) Essential hypertension Unspecified essential hypertension Fibromyalgia Mylagia and myositis, unspecified Acquired hypothyroidism Unspecified hypothyroidism Lung nodule, solitary Solitary pulmonary nodule Mixed hyperlipidemia PRAKASH (obstructive sleep apnea) Obstructive sleep apnea (adult) (pediatric) S/P coronary artery stent placement Postsurgical percutaneous transluminal coronary angioplasty status Ischemic cardiomyopathy Other specified forms of chronic ischemic heart disease Abdominal aortic aneurysm (AAA) without rupture (HCC) Paroxysmal A-fib (HCC) Atrial fibrillation Class 1 obesity due to excess calories with serious comorbidity and body mass index (BMI) of 33.0 to 33.9 in adult Abdominal aortic aneurysm (AAA) without rupture (HCC)- Primary Lung nodules Other nonspecific abnormal finding of lung field Lung nodule, solitary Solitary pulmonary nodule Acquired hypothyroidism Unspecified hypothyroidism Essential hypertension Unspecified essential hypertension Coronary artery disease involving [place] coronary artery of [place] heart without angina pectoris RLS (restless legs syndrome) Restless legs syndrome (RLS) Neuropathy Mononeuritis of unspecified site Type 2 diabetes mellitus without complication, without long-term current use of insulin (HCC) Generalized abdominal pain Abdominal pain, generalized [facility] Diagnosis Pre-operative examination- Primary Preoperative examination, unspecified Anemia, unspecified type Blood in stool Benign tumor of ribs, sternum, and clavicle Benign neoplasm of ribs, sternum, and clavicle Malignant neoplasm of urinary bladder, unspecified site (HCC) Anxiety Anxiety state, unspecified Benign prostatic hyperplasia, unspecified whether lower urinary tract symptoms present Coronary artery disease involving [place] coronary artery of [place] heart without angina pectoris Type 2 diabetes mellitus without complication, without long-term current use of insulin (HCC) Essential hypertension Unspecified essential hypertension Fibromyalgia Mylagia and myositis, unspecified Acquired hypothyroidism Unspecified hypothyroidism Lung nodule, solitary Solitary pulmonary nodule Mixed hyperlipidemia PRAKASH (obstructive sleep apnea) Obstructive sleep apnea (adult) (pediatric) S/P coronary artery stent placement Postsurgical percutaneous transluminal coronary angioplasty status Ischemic cardiomyopathy Other specified forms of chronic ischemic heart disease Abdominal aortic aneurysm (AAA) without rupture (HCC) Paroxysmal A-fib (HCC) Atrial fibrillation Class 1 obesity due to excess calories with serious comorbidity and body mass index (BMI) of 33.0 to 33.9 in adult Abdominal aortic aneurysm (AAA) without rupture (HCC)- Primary Lung nodules Other nonspecific abnormal finding of lung field Lung nodule, solitary Solitary pulmonary nodule Essential hypertension Unspecified essential hypertension [facility] Diagnosis Pre-operative examination- Primary Preoperative examination, unspecified Anemia, unspecified type Blood in stool Benign tumor of ribs, sternum, and clavicle Benign neoplasm of ribs, sternum, and clavicle Malignant neoplasm of urinary bladder, unspecified site (HCC) Anxiety Anxiety state, unspecified Benign prostatic hyperplasia, unspecified whether lower urinary tract symptoms present Coronary artery disease involving [place] coronary artery of [place] heart without angina pectoris Type 2 diabetes mellitus without complication, without long-term current use of insulin (HCC) Essential hypertension Unspecified essential hypertension Fibromyalgia Mylagia and myositis, unspecified Acquired hypothyroidism Unspecified hypothyroidism Lung nodule, solitary Solitary pulmonary nodule Mixed hyperlipidemia PRAKASH (obstructive sleep apnea) Obstructive sleep apnea (adult) (pediatric) S/P coronary artery stent placement Postsurgical percutaneous transluminal coronary angioplasty status Ischemic cardiomyopathy Other specified forms of chronic ischemic heart disease Abdominal aortic aneurysm (AAA) without rupture Paroxysmal A-fib (HCC) Atrial fibrillation Class 1 obesity due to excess calories with serious comorbidity and body mass index (BMI) of 33.0 to 33.9 in adult Abdominal aortic aneurysm (AAA) without rupture- Primary Lung nodules Other nonspecific abnormal finding of lung field Lung nodule, solitary Solitary pulmonary nodule Essential hypertension- Primary Unspecified essential hypertension Type 2 diabetes mellitus with diabetic neuropathy, without long-term current use of insulin (HCC) Paroxysmal A-fib (HCC) Atrial fibrillation Stage 3b chronic kidney disease (HCC) Mixed hyperlipidemia Coronary artery disease involving [place] coronary artery of [place] heart without angina pectoris Bilateral leg edema Edema Acquired hypothyroidism Unspecified hypothyroidism RLS (restless legs syndrome) Restless legs syndrome (RLS) Neuropathy Mononeuritis of unspecified site Fibromyalgia Mylagia and myositis, unspecified PRAKASH (obstructive sleep apnea) Obstructive sleep apnea (adult) (pediatric) Gastroesophageal reflux disease with esophagitis without hemorrhage Benign prostatic hyperplasia, unspecified whether lower urinary tract symptoms present Malignant neoplasm of urinary bladder, unspecified site (HCC) Generalized abdominal pain Abdominal pain, generalized Screening for depression Anemia, unspecified type [facility] Diagnosis Pre-operative examination- Primary Preoperative examination, unspecified Anemia, unspecified type Blood in stool Benign tumor of ribs, sternum, and clavicle Benign neoplasm of ribs, sternum, and clavicle Malignant neoplasm of urinary bladder, unspecified site (HCC) Anxiety Anxiety state, unspecified Benign prostatic hyperplasia, unspecified whether lower urinary tract symptoms present Coronary artery disease involving [place] coronary artery of [place] heart without angina pectoris Type 2 diabetes mellitus without complication, without long-term current use of insulin (HCC) Essential hypertension Unspecified essential hypertension Fibromyalgia Mylagia and myositis, unspecified Acquired hypothyroidism Unspecified hypothyroidism Lung nodule, solitary Solitary pulmonary nodule Mixed hyperlipidemia PRAKASH (obstructive sleep apnea) Obstructive sleep apnea (adult) (pediatric) S/P coronary artery stent placement Postsurgical percutaneous transluminal coronary angioplasty status Ischemic cardiomyopathy Other specified forms of chronic ischemic heart disease Abdominal aortic aneurysm (AAA) without rupture Paroxysmal A-fib (HCC) Atrial fibrillation Class 1 obesity due to excess calories with serious comorbidity and body mass index (BMI) of 33.0 to 33.9 in adult Abdominal aortic aneurysm (AAA) without rupture- Primary Lung nodules Other nonspecific abnormal finding of lung field Lung nodule, solitary Solitary pulmonary nodule Rash- Primary Rash and other nonspecific skin eruption [facility] Diagnosis Onset Date Resolution Status Admit Date Atrial fibrillation acute Augus 2024 9:28am Dyspnea on exertion acute Novus t 2024 9:28am Shortness of breath acute Augus 2024 9:28am Atherosclerotic heart diseas e of [place] coronary artery without angina pectoris chronic December 14 9:28am Chest mass chronic December 14, 2 025 9:28am History of ischemic cardiomyopathy chronic December 14 9:28am HLD (hyperlipidemia) chronic 2024 9:28am [place] [facility] Work Phone: Evaluation note* Diagnosis Pre-operative examination- Primary Preoperative examination, unspecified Anemia, unspecified type Blood in stool Benign tumor of ribs, sternum, and clavicle Benign neoplasm of ribs, sternum, and clavicle Malignant neoplasm of urinary bladder, unspecified site (HCC) Anxiety Anxiety state, unspecified Benign prostatic hyperplasia, unspecified whether lower urinary tract symptoms present Coronary artery disease involving [place] coronary artery of [place] heart without angina pectoris Type 2 diabetes mellitus without complication, without long-term current use of insulin (HCC) Essential hypertension Unspecified essential hypertension Fibromyalgia Mylagia and myositis, unspecified Acquired hypothyroidism Unspecified hypothyroidism Lung nodule, solitary Solitary pulmonary nodule Mixed hyperlipidemia PRAKASH (obstructive sleep apnea) Obstructive sleep apnea (adult) (pediatric) S/P coronary artery stent placement Postsurgical percutaneous transluminal coronary angioplasty status Ischemic cardiomyopathy Other specified forms of chronic ischemic heart disease Abdominal aortic aneurysm (AAA) without rupture Paroxysmal A-fib (HCC) Atrial fibrillation Class 1 obesity due to excess calories with serious comorbidity and body mass index (BMI) of 33.0 to 33.9 in adult Abdominal aortic aneurysm (AAA) without rupture- Primary Lung nodules Other nonspecific abnormal finding of lung field Lung nodule, solitary Solitary pulmonary nodule RLS (restless legs syndrome) Restless legs syndrome (RLS) Neuropathy Mononeuritis of unspecified site documented in this encounter [facility] for referral (narrative)* Outpatient Procedure (Routine) - Closed Specialty Diagnoses / Procedures Referred By Jose montilla Referred To [facility] Diagnoses Pain of upper abdomen Heartburn Early satiety Change in stool Procedures EGD DIAGNOSTIC EGD W/O OR W/BRUSH/WASH Eze Grijalva MD [address] [place] [address] [facility] [place] [address] Referral ID Status Reason Start Date Expiration Date V isits Requested Visits Authorized [id number] Closed Auto-Generate d Referral 03/21/2021 03/21/2022 1 1 * Outpatient Procedure (Routine) - Closed Specialty Diagnoses / Procedures Referred By Jose montilla Referred To Contact [facility] Diagnoses Pain of upper abdomen Heartburn Early satiety Change in stool Procedures COLONOSCOPY DIAGNOSTIC COLONOSCOP W/ OR W/O BRSH SPEC Eze Grijalva MD [address] [place] [address] [facility] [place] [address] Referral ID Status Reason Start Date Expiration Date V isits Requested Visits Authorized [id number] Closed Auto-Generate d Referral 03/21/2021 03/21/2022 1 1 [facility] for referral (narrative)* Diagnostic Procedure Only (Routine) - Closed Specialty Diagnoses / Procedures Referred By Jose montilla Referred To Contact XR IMAGING Diagnoses Constipation, unspecified constipation type Procedures XR ABDOMEN 1V SUPINE RADIOLOGIC EXAM ABDOMEN 1 VIEW Halina Garzon APRN.[employer] [address] [place] [address] Xr Imaging Referral ID Status Reason Start Date Expiration Date V isits Requested Visits Authorized [id number] Closed Auto-Generate d Referral 08/26/2021 09/25/2022 1 1 [facility] for referral (narrative)No reason for referral information [facility]WUniversity [facility] Work Phone: Reason for visit Narrative* Outpatient Procedure (Routine) - Closed Specialty Diagnoses / Procedures Referred By Jose montilla Referred To Contact [facility] Diagnoses Pain of upper abdomen Heartburn Early satiety Change in stool Procedures EGD DIAGNOSTIC EGD W/O OR W/BRUSH/WASH Eze Grijalva MD [address] [place] [id number] [facility] [place] [address] [place] [address] Referral ID Status Reason Start Date Expiration Date V isits Requested Visits Authorized [id number] Closed Auto-Generate d Referral 03/21/2021 03/21/2022 1 1 [facility] for visit Narrative* Diagnostic Procedure Only (Routine) - Closed Specialty Diagnoses / Procedures Referred By Jose montilla Referred To Contact XR IMAGING Diagnoses Constipation, unspecified constipation type Procedures XR ABDOMEN 1V SUPINE RADIOLOGIC EXAM ABDOMEN 1 VIEW Halina Garzon APRN.[employer] [address] [place] [address] Xr Imaging Referral ID Status Reason Start Date Expiration Date V isits Requested Visits Authorized [id number] Closed Auto-Generate d Referral 08/26/2021 09/25/2022 1 1 [facility] Summary Purpose Family History Relationship Condition Age at Onset Recorded Date/T yessica brother Diabetes mellitus Unknown Coronary artery disease Unknown Alzheimer's disease Unknown Celiac disease Unknown Hypertension Unknown Cardiac disease Unknown brother Coronary artery disease Unknown Relationship Condition Age at Onset Recorded Date/T yessica Not Specified Dyspnea on exertion Unknown Anemia Unknown Atrial fibrillation Unknown Edema Unknown On amiodarone therapy Unknown History of ischemic cardiomyopathy Unknow n Atherosclerosis of n ative coronary artery without angina pectoris Unknown brother Diabetes mellitus Unknown Coronary artery disease Unknown Alzheimer's disease Unknown Celiac disease Unknown Hypertension Unknown Cardiac disease Unknown brother Coronary artery disease Unknown Advance Directives Advance Directive Response Recorded Date/ Time Living Will Yes January 06, 2021 6:43pm Power of Fiction Writer Yes December 6:43pm Documents on File Type Date Recorded Patient Leather Stamper Expl anation Advance Directive(s) 07/14/2021 11:33 AM Advance Directive(s) 03/21/2020 2:06 PM Documents on File Type Date Recorded Patient Leather Stamper Expl anation Advance Directive(s) 07/14/2021 11:33 AM Advance Directive(s) 03/21/2020 2:06 PM Documents on File Type Date Recorded Patient Leather Stamper Expl anation Advance Directive(s) 03/21/2020 2:06 PM Advance Directive Response Recorded Date/ Time Name of Medical Power of Fiction Writer Zak Juan r February 03, 2022 1:22am Living Will Yes February 03 1:22am Power of Fiction Writer Yes February 03, 2022 1:22am Advance Directive Response Recorded Date/ Time Name of Medical Power of Fiction Writer Vira laguerre February 02, 2022 10:40pm Living Will Yes February 02 10:40pm Power of Fiction Writer Yes February 02, 2022 10:40pm Documents on File Type Date Recorded Patient Leather Stamper Expl anation Advance Directive(s) 03/21/2020 2:06 PM Advance Directive Response Recorded Date/ Time Name of Medical Power of Fiction Writer Zak Martinez r February 03, 2022 12:22am Living Will Yes February 03 12:22am Power of Fiction Writer Yes February 03, 2022 12:22am Advance Directive Response Recorded Date/ Time Name of Medical Power of Fiction Writer GALE MARTINEZ R June 24, 2022 3:56pm Living Will Yes June 24, 2022 3:56pm Power of Fiction Writer Yes June 24 3:56pm Advance Directive Response Recorded Date/ Time Living Will Yes June 24, 2022 2:56pm Power of Fiction Writer Yes June 24 2:56pm Advance Directive Response Recorded Date/ Time Living Will Yes June 24, 2022 3:56pm Power of Fiction Writer Yes June 24 3:56pm Advance Directive Response Recorded Date/ Time Living Will Yes June 24, 2022 3:56pm Do you have a Healthcare Power of Fiction Writer? Yes June 24, 2022 3:56pm Chief Complaint and Reason for Visit Chief Complaint 3 M FU Reason for Visit Atherosclerotic hear t disease of [place] coronary artery without angina pectoris History of ischemic cardiomyopathy Paroxysmal atrial fibrillation with RVR Pre-op evaluation Hypertension S/P CABG (coronary artery bypass graft) S/P PTCA (percutaneous transluminal coronary angioplasty) Chief Complaint 6 M FU E ORDER Reason for Visit Atrial fibrillation On amiodarone therapy Atherosclerotic heart disease of [place] coronary artery without angina pectoris History of ischemic cardiomyopathy Hypertension S/P CABG (coronary artery bypass graft) S/P PTCA (percutaneous transluminal coronary angioplasty) Chief Complaint 6 M FU E ORDER 3 M FU CHEST MASS Reason for Visit Atrial fibrillation On amiodarone therapy Atherosclerotic heart disease of [place] coronary artery without angina pectoris History of ischemic cardiomyopathy Hypertension S/P CABG (coronary artery bypass graft) S/P PTCA (percutaneous transluminal coronary angioplasty) Atrial fibrillation On amiodarone therapy Atherosclerotic heart disease of [place] coronary artery without angina pectoris Chest mass History of ischemic cardiomyopathy Hypertension S/P CABG (coronary artery bypass graft) S/P PTCA (percutaneous transluminal coronary angioplasty) Chief Complaint 3 M FU CHEST MASS CHEST PAIN RESPIRATORY FAILURE WITH HYPOXIA RESPIRATORY FAILURE WITH HYPOXIA RESPIRATORY FAILURE WITH HYPOXIA RESPIRATORY FAILURE WITH HYPOXIA RESPIRATORY FAILURE WITH HYPOXIA RESPIRATORY FAILURE WITH HYPOXIA Reason for Visit Atrial fibrillation On amiodarone therapy Atherosclerotic heart disease of [place] coronary artery without angina pectoris Chest mass History of ischemic cardiomyopathy Hypertension S/P CABG (coronary artery bypass graft) S/P PTCA (percutaneous transluminal coronary angioplasty) Acute respiratory failure with hypoxia BPH (benign prostatic hyperplasia) CAD (coronary artery disease) Diabetes Flash pulmonary edema HLD (hyperlipidemia) Hypertensive emergency Non-ST elevation (NSTEMI) myocardial infarction RPAKASH (obstructive sleep apnea) Paroxysmal atrial fibrillation with RVR Respiratory failure with hypoxia Thrombocytopenia Thyroid disease Atherosclerotic heart disease of [place] coronary artery without angina pectoris History of ischemic cardiomyopathy Hypertension S/P CABG (coronary artery bypass graft) S/P PTCA (percutaneous transluminal coronary angioplasty) Chief Complaint 3 M FU CHEST MASS CHEST PAIN RESPIRATORY FAILURE WITH HYPOXIA Reason for Visit Atrial fibrillation On amiodarone therapy Atherosclerotic heart disease of [place] coronary artery without angina pectoris Chest mass History of ischemic cardiomyopathy Hypertension S/P CABG (coronary artery bypass graft) S/P PTCA (percutaneous transluminal coronary angioplasty) BPH (benign prostatic hyperplasia) CAD (coronary artery disease) Diabetes Flash pulmonary edema HLD (hyperlipidemia) Hypertensive emergency PRAKASH (obstructive sleep apnea) Paroxysmal atrial fibrillation with RVR Respiratory failure with hypoxia Thrombocytopenia Thyroid disease Atherosclerotic heart disease of [place] coronary artery without angina pectoris History of ischemic cardiomyopathy S/P CABG (coronary artery bypass graft) Chief Complaint 3 M FU CHEST MASS CHEST PAIN RESPIRATORY FAILURE WITH HYPOXIA RESPIRATORY FAILURE WITH HYPOXIA RESPIRATORY FAILURE WITH HYPOXIA RESPIRATORY FAILURE WITH HYPOXIA RESPIRATORY FAILURE WITH HYPOXIA RESPIRATORY FAILURE WITH HYPOXIA 1 m fu EORDERS E ORDERS Reason for Visit Atrial fibrillation On amiodarone therapy Chest mass Acute respiratory failure with hypoxia Flash pulmonary edema Hypertensive emergency Non-ST elevation (NSTEMI) myocardial infarction Respiratory failure with hypoxia Thrombocytopenia Atrial fibrillation Fatigue Chief Complaint CHEST MASS CHEST PAIN RESPIRATORY FAILURE WITH HYPOXIA RESPIRATORY FAILURE WITH HYPOXIA RESPIRATORY FAILURE WITH HYPOXIA RESPIRATORY FAILURE WITH HYPOXIA RESPIRATORY FAILURE WITH HYPOXIA RESPIRATORY FAILURE WITH HYPOXIA 1 m fu EORDERS E ORDERS LUMP ON RIBS LOCALIZED SWELLING, MASS AND LUMP TRUNK Consult E ORDERS INT LABSPEC EARLY SATIETY Reason for Visit Acute respiratory fa ilure with hypoxia Flash pulmonary edema Hypertensive emergency Non-ST elevation (NSTEMI) myocardial infarction Respiratory failure with hypoxia Thrombocytopenia Atrial fibrillation Fatigue Chest mass Anemia Constipation Early satiety Epigastric pain Chief Complaint CHEST PAIN RESPIRATORY FAILURE WITH HYPOXIA RESPIRATORY FAILURE WITH HYPOXIA RESPIRATORY FAILURE WITH HYPOXIA RESPIRATORY FAILURE WITH HYPOXIA RESPIRATORY FAILURE WITH HYPOXIA RESPIRATORY FAILURE WITH HYPOXIA 1 m fu EORDERS E ORDERS LUMP ON RIBS LOCALIZED SWELLING, MASS AND LUMP TRUNK Consult E ORDERS INT LABSPEC EARLY SATIETY Reason for Visit Acute respiratory fa ilure with hypoxia Flash pulmonary edema Hypertensive emergency Non-ST elevation (NSTEMI) myocardial infarction Respiratory failure with hypoxia Thrombocytopenia Atrial fibrillation Fatigue Chest mass Anemia Constipation Early satiety Epigastric pain Chief Complaint 1 m fu EORDERS E ORDERS LUMP ON RIBS LOCALIZED SWELLING, MASS AND LUMP TRUNK Consult E ORDERS INT LABSPEC EARLY SATIETY Reason for Visit Atrial fibrillation Fatigue Chest mass Anemia Constipation Early satiety Epigastric pain Chief Complaint LUMP ON RIBS LOCALIZED SWELLING, MASS AND LUMP TRUNK Consult E ORDERS INT LABSPEC EARLY SATIETY 6 M FU 2 WK FU Reason for Visit Chest mass Anemia Constipation Early satiety Epigastric pain Atrial fibrillation Atherosclerotic heart disease of [place] coronary artery without angina pectoris Duodenitis Gastritis Hypergastrinemia Chief Complaint 6 M FU EORDER Reason for Visit Atrial fibrillation Atherosclerotic heart disease of [place] coronary artery without angina pectoris History of ischemic cardiomyopathy HLD (hyperlipidemia) Hypertension Chief Complaint Admit Date 6 M FU March 20, 2024 9 :07am Reason for Visit Admit Date Atrial fibrillation March 20, 2024 9 :07am Atherosclerotic heart diseas e of [place] coronary artery without angina pectoris March 20, 2024 9:07am Chest mass March 20, 2024 9 :07am History of ischemic cardiomyopathy Decem 2023 9:07am HLD (hyperlipidemia) March 20, 2024 9:07am Chief Complaint Admit Date 6 M FU December 14, 2024 9: 28am Reason for Visit Admit Date Atrial fibrillation December 14, 2024 9: 28am Dyspnea on exertion December 14, 2024 9: 28am Shortness of breath December 14, 2024 9: 28am Atherosclerotic heart diseas e of [place] coronary artery without angina pectoris December 14, 2024 9:28am Chest mass December 14, 2024 9: 28am History of ischemic cardiomyopathy Augus t 2024 9:28am HLD (hyperlipidemia) December 14, 2024 9 :28am Chief Complaint Admit Date 6 M FU December 14, 2024 9: 28am EORDERS December 14, 2024 10 :21am Reason for Visit Admit Date Atrial fibrillation December 14, 2024 9: 28am Dyspnea on exertion December 14, 2024 9: 28am Atherosclerotic heart diseas e of [place] coronary artery without angina pectoris December 14, 2024 9:28am History of ischemic cardiomyopathy Augus t 2024 9:28am HLD (hyperlipidemia) December 14, 2024 9 :28am Medications Administered Section Inactive Administered Medications - up to 3 most recent administrations Medication Order MAR Action Action Date Dose Rate Site benzocaine 20% 1 [place] (TOPEX) 1 [place], TOPICAL, ONCE, 1 dose, On 07/14/21 at 0800, APPLY Orally prior to start of procedure per LIP - Pharmaceutical Waste: Aerosol -, Intraprocedure Given 07/14/2021 7:39 AM EDT 1 [place] Reason for Referral Specialty Diagnoses / Procedures Referred By Jose montilla Referred To Contact CT IMAGING Diagnoses Lung nodules Procedures CT CHEST WO IVCON CAT SCAN OF CHEST Kamari Melendez APRN.[employer] [address] [place] [address] Ct Imaging Referral ID Status Reason Start Date Expiration Date V isits Requested Visits Authorized [id number] Closed Auto-Generate d Referral 09/14/2021 04/16/2022 1 1 Specialty Diagnoses / Procedures Referred By Contac t Referred To Contact CT IMAGING Diagnoses Lung nodules Procedures CT CHEST WO IVCON DIAGNOSTIC COMPUTED TOMOGRAPHY THORAX W/O CNTRST Allan Rosario MD [address] [place] [address] Ct Imaging Referral ID Status Reason Start Date Expiration Date Visits Requested Visits Authorized [id number] Pending Review Auto-Generat ed Referral 08/19/2022 09/18/2022 1 1 Specialty Diagnoses / Procedures Referred By Contac t Referred To Contact Gastroenterology Diagnoses Generalized abdominal pain Gastroesophageal reflux disease with esophagitis without hemorrhage Change in bowel habits Procedures CONSULT TO GASTROENTEROLOGY OFFICE/OUTPATIENT NEW HIGH MDM 60-74 MINUTES Allan Rosario MD [address] [place] [address] Referral ID Status Reason Start Date Expiration Date Visits Requested Visits Authorized [id number] Authorized PCP Requested Referral 02/05/2023 1 1 Additional Source Comments (unrecognized sect ion and content) No Status Records FoundNo Status Records FoundNo Status Records FoundNo Status Records Found INFORMATION SOURCE (unrecogn ized section and content) DATE CREATED AUTHOR 07/04/2019 [facility] DATE CREATED AUTHOR AUTHOR'S ORGANIZ ATION 08/17/2021 [facility] DATE CREATED AUTHOR AUTHOR'S ORGANIZ ATION 09/15/2024 [facility] DATE CREATED AUTHOR AUTHOR'S ORGANIZ ATION 12/27/2024 [facility] Goals (unrecognized section and content) Goals may be documented in a n alternate sectionGoals may be documented in an alternate sectionGoals may be documented in an alternate sectionGoals may be documented in an alternate sectionGoals may be documented in an alternate sectionGoals may be documented in an alternate sectionGoals may be documented in an alternate sectionGoals may be documented in an alternate sectionGoals may be documented in an alternate sectionGoals may be documented in an alternate section Source Comments (unrecognize d section and content) In the event this informatio n is protected by the Federal Confidentiality of Alcohol and Drug Abuse Patient Records regulations: The Federal rules restrict any use of the information to criminally investigate or prosecute any alcohol or drug abuse patient.[facility] HospitalIn the event this information is protected by the Federal Confidentiality of Alcohol and Drug Abuse Patient Records regulations: The Federal rules restrict any use of the information to criminally investigate or prosecute any alcohol or drug abuse patient.[facility] HospitalIn the event this information is protected by the Federal Confidentiality of Alcohol and Drug Abuse Patient Records regulations: The Federal rules restrict any use of the information to criminally investigate or prosecute any alcohol or drug abuse patient.[facility] HospitalIn the event this information is protected by the Federal Confidentiality of Alcohol and Drug Abuse Patient Records regulations: The Federal rules restrict any use of the information to criminally investigate or prosecute any alcohol or drug abuse patient.[facility] HospitalIn the event this information is protected by the Federal Confidentiality of Alcohol and Drug Abuse Patient Records regulations: The Federal rules restrict any use of the information to criminally investigate or prosecute any alcohol or drug abuse patient.[facility] HospitalIn the event this information is protected by the Federal Confidentiality of Alcohol and Drug Abuse Patient Records regulations: The Federal rules restrict any use of the information to criminally investigate or prosecute any alcohol or drug abuse patient.[facility] HospitalIn the event this information is protected by the Federal Confidentiality of Alcohol and Drug Abuse Patient Records regulations: The Federal rules restrict any use of the information to criminally investigate or prosecute any alcohol or drug abuse patient.[facility] HospitalIn the event this information is protected by the Federal Confidentiality of Alcohol and Drug Abuse Patient Records regulations: The Federal rules restrict any use of the information to criminally investigate or prosecute any alcohol or drug abuse patient.[facility] HospitalIn the event this information is protected by the Federal Confidentiality of Alcohol and Drug Abuse Patient Records regulations: The Federal rules restrict any use of the information to criminally investigate or prosecute any alcohol or drug abuse patient.[facility] HospitalIn the event this information is protected by the Federal Confidentiality of Alcohol and Drug Abuse Patient Records regulations: The Federal rules restrict any use of the information to criminally investigate or prosecute any alcohol or drug abuse patient.[facility] HospitalIn the event this information is protected by the Federal Confidentiality of Alcohol and Drug Abuse Patient Records regulations: The Federal rules restrict any use of the information to criminally investigate or prosecute any alcohol or drug abuse patient.[facility] HospitalIn the event this information is protected by the Federal Confidentiality of Alcohol and Drug Abuse Patient Records regulations: The Federal rules restrict any use of the information to criminally investigate or prosecute any alcohol or drug abuse patient.[facility] HospitalIn the event this information is protected by the Federal Confidentiality of Alcohol and Drug Abuse Patient Records regulations: The Federal rules restrict any use of the information to criminally investigate or prosecute any alcohol or drug abuse patient.[facility] HospitalIn the event this information is protected by the Federal Confidentiality of Alcohol and Drug Abuse Patient Records regulations: The Federal rules restrict any use of the information to criminally investigate or prosecute any alcohol or drug abuse patient.[facility] HospitalIn the event this information is protected by the Federal Confidentiality of Alcohol and Drug Abuse Patient Records regulations: The Federal rules restrict any use of the information to criminally investigate or prosecute any alcohol or drug abuse patient.[facility] HospitalIn the event this information is protected by the Federal Confidentiality of Alcohol and Drug Abuse Patient Records regulations: The Federal rules restrict any use of the information to criminally investigate or prosecute any alcohol or drug abuse patient.[facility] HospitalIn the event this information is protected by the Federal Confidentiality of Alcohol and Drug Abuse Patient Records regulations: The Federal rules restrict any use of the information to criminally investigate or prosecute any alcohol or drug abuse patient.[facility] HospitalIn the event this information is protected by the Federal Confidentiality of Alcohol and Drug Abuse Patient Records regulations: The Federal rules restrict any use of the information to criminally investigate or prosecute any alcohol or drug abuse patient.[facility] HospitalIn the event this information is protected by the Federal Confidentiality of Alcohol and Drug Abuse Patient Records regulations: The Federal rules restrict any use of the information to criminally investigate or prosecute any alcohol or drug abuse patient.[facility] HospitalIn the event this information is protected by the Federal Confidentiality of Alcohol and Drug Abuse Patient Records regulations: The Federal rules restrict any use of the information to criminally investigate or prosecute any alcohol or drug abuse patient.[facility] HospitalIn the event this information is protected by the Federal Confidentiality of Alcohol and Drug Abuse Patient Records regulations: The Federal rules restrict any use of the information to criminally investigate or prosecute any alcohol or drug abuse patient.[facility] HospitalIn the event this information is protected by the Federal Confidentiality of Alcohol and Drug Abuse Patient Records regulations: The Federal rules restrict any use of the information to criminally investigate or prosecute any alcohol or drug abuse patient.[facility] HospitalIn the event this information is protected by the Federal Confidentiality of Alcohol and Drug Abuse Patient Records regulations: The Federal rules restrict any use of the information to criminally investigate or prosecute any alcohol or drug abuse patient.[facility] HospitalIn the event this information is protected by the Federal Confidentiality of Alcohol and Drug Abuse Patient Records regulations: The Federal rules restrict any use of the information to criminally investigate or prosecute any alcohol or drug abuse patient.[facility] HospitalIn the event this information is protected by the Federal Confidentiality of Alcohol and Drug Abuse Patient Records regulations: The Federal rules restrict any use of the information to criminally investigate or prosecute any alcohol or drug abuse patient.[facility] HospitalIn the event this information is protected by the Federal Confidentiality of Alcohol and Drug Abuse Patient Records regulations: The Federal rules restrict any use of the information to criminally investigate or prosecute any alcohol or drug abuse patient.[facility] HospitalIn the event this information is protected by the Federal Confidentiality of Alcohol and Drug Abuse Patient Records regulations: The Federal rules restrict any use of the information to criminally investigate or prosecute any alcohol or drug abuse patient.[facility] HospitalIn the event this information is protected by the Federal Confidentiality of Alcohol and Drug Abuse Patient Records regulations: The Federal rules restrict any use of the information to criminally investigate or prosecute any alcohol or drug abuse patient.[facility] HospitalIn the event this information is protected by the Federal Confidentiality of Alcohol and Drug Abuse Patient Records regulations: The Federal rules restrict any use of the information to criminally investigate or prosecute any alcohol or drug abuse patient.[facility] HospitalIn the event this information is protected by the Federal Confidentiality of Alcohol and Drug Abuse Patient Records regulations: The Federal rules restrict any use of the information to criminally investigate or prosecute any alcohol or drug abuse patient.[facility] HospitalIn the event this information is protected by the Federal Confidentiality of Alcohol and Drug Abuse Patient Records regulations: The Federal rules restrict any use of the information to criminally investigate or prosecute any alcohol or drug abuse patient.[facility] HospitalIn the event this information is protected by the Federal Confidentiality of Alcohol and Drug Abuse Patient Records regulations: The Federal rules restrict any use of the information to criminally investigate or prosecute any alcohol or drug abuse patient.[facility] HospitalIn the event this information is protected by the Federal Confidentiality of Alcohol and Drug Abuse Patient Records regulations: The Federal rules restrict any use of the information to criminally investigate or prosecute any alcohol or drug abuse patient.[facility] HospitalIn the event this information is protected by the Federal Confidentiality of Alcohol and Drug Abuse Patient Records regulations: The Federal rules restrict any use of the information to criminally investigate or prosecute any alcohol or drug abuse patient.[facility] HospitalIn the event this information is protected by the Federal Confidentiality of Alcohol and Drug Abuse Patient Records regulations: The Federal rules restrict any use of the information to criminally investigate or prosecute any alcohol or drug abuse patient.[facility] HospitalIn the event this information is protected by the Federal Confidentiality of Alcohol and Drug Abuse Patient Records regulations: The Federal rules restrict any use of the information to criminally investigate or prosecute any alcohol or drug abuse patient.[facility] HospitalIn the event this information is protected by the Federal Confidentiality of Alcohol and Drug Abuse Patient Records regulations: The Federal rules restrict any use of the information to criminally investigate or prosecute any alcohol or drug abuse patient.[facility] HospitalIn the event this information is protected by the Federal Confidentiality of Alcohol and Drug Abuse Patient Records regulations: The Federal rules restrict any use of the information to criminally investigate or prosecute any alcohol or drug abuse patient.[facility] HospitalIn the event this information is protected by the Federal Confidentiality of Alcohol and Drug Abuse Patient Records regulations: The Federal rules restrict any use of the information to criminally investigate or prosecute any alcohol or drug abuse patient.[facility] Care Teams (unrecognized sec tion and content) Atmospheric Sciences Professor Relationship Specialty Start Date End Date Allan Rosario MD [address] [place] [address] PCP - General Family Practice 10/18/19 Atmospheric Sciences Professor Relationship Specialty Start Date End Date Allan Rosario MD [employer] [place] [address] PCP - General Family Practice 10/18/19 Atmospheric Sciences Professor Relationship Specialty Start Date End Date Allan Rosario MD [employer] [place] [address] PCP - General Family Practice 10/18/19 Atmospheric Sciences Professor Relationship Specialty Start Date End Date Alaln Rosario MD [employer] [place] [address] PCP - General Family Practice 10/18/19 Atmospheric Sciences Professor Relationship Specialty Start Date End Date Allan Rosario MD [employer] [place] [address] PCP - General Family Practice 10/18/19 Atmospheric Sciences Professor Relationship Specialty Start Date End Date Allan Rosario MD [employer] [place] [address] PCP - General Family Practice 10/18/19 Atmospheric Sciences Professor Relationship Specialty Start Date End Date Allan Rosario MD [employer] [place] [address] PCP - General Family Practice 10/18/19 Atmospheric Sciences Professor Relationship Specialty Start Date End Date Allan Rosario MD [address] [place] [address] PCP - General Family Practice 10/18/19 Atmospheric Sciences Professor Relationship Specialty Start Date End Date Allan Rosario MD [address] [place] [address] PCP - General Family Medicine 10/18/19 Atmospheric Sciences Professor Relationship Specialty Start Date End Date Allan Rosario MD [address] [place] [address] PCP - General Family Medicine 10/18/19 Atmospheric Sciences Professor Relationship Specialty Start Date End Date Allan Rosario MD [address] [place] [address] PCP - General Family Medicine 10/18/19 Atmospheric Sciences Professor Relationship Specialty Start Date End Date Allan Rosario MD [address] [place] [address] PCP - General Family Medicine 10/18/19 Atmospheric Sciences Professor Relationship Specialty Start Date End Date Allan Rosario MD [address] [place] [address] PCP - General Family Medicine 10/18/19 Atmospheric Sciences Professor Relationship Specialty Start Date End Date Allan Rosario MD [address] [place] [address] PCP - General Family Medicine 10/18/19 Atmospheric Sciences Professor Relationship Specialty Start Date End Date Allan Rosario MD [address] [place] [address] PCP - General Family Medicine 10/18/19 Team Status: Active Member Role Status Dates Dr. Agustin Davenport MD Family Provider Active Dr. Allan Rosario MD Primary Care Provider Active Team Status: Active Member Role Status Dates Dr. Allan Rosario MD Primary Care Provider Active Jorge Stover MD Emergency Provider Active Dr. Juve Garcia MD Attending Provider Active Team Status: Active Member Role Status Dates Dr. Allan Rosario MD Primary Care Provider Active Jorge Stover MD Emergency Provider Active Dr. Juve Garcia MD Admit Provider, Other Provider A ctive Dr. Renzo Jeffrey MD Other Provider Active Dr. North Mishra DO Attending Provider, Other Provide r Active Dr. Ian Coats MD Other Provider Active Dr. Carter Richmond MD Other Provider Active Nan Blackman FAMILY DAY CARE PROVIDER, FAMILY DAY CARE PROVIDER-C Other Provider Active Dr. Preet Choudhury MD Referring Provider, Other Provid er Active Team Status: Active Member Role Status Dates Dr. Allan Rosario MD Primary Care Provider Active Jorge Stover MD Emergency Provider Active Dr. Juve Garcia MD Admit Provider, Other Provider A ctive Dr. Renzo Jeffrey MD Other Provider Active Dr. North Mishra DO Other Provider Active Dr. Ian Coats MD Other Provider Active Dr. Carter Richmond MD Other Provider Active Nan Blackman FAMILY DAY CARE PROVIDER, FAMILY DAY CARE PROVIDER-C Other Provider Active Dr. Preet Choudhury MD Other Provider Active Dr. Juve Lan MD Attending Provider, Other Prov ider Active Team Status: Active Member Role Status Dates Dr. Allan Rosario MD Primary Care Provider Active Dr. Jacky Rousseau MD Attending Provider Active Dr. Juve Lan MD Referring Provider Active Team Status: Active Member Role Status Dates Dr. Allan Rosario MD Primary Care Provider Active Jorge Stover MD Emergency Provider Active Dr. Juve Garcia MD Admit Provider, Other Provider A ctive Dr. Juve Lan MD Other Provider Active Dr. Renzo Jeffrey MD Other Provider Active Dr. North Mishra DO Attending Provider, Other Provide r Active Dr. Ian Coats MD Other Provider Active Dr. Carter Richmond MD Other Provider Active Nan Blackman NP, FAMILY DAY CARE PROVIDER-C Other Provider Active Dr. Tory Sosa DO Other Provider Active Dr. Preet Choudhury MD Other Provider Active Team Status: Active Member Role Status Dates Dr. Allan Rosario MD Primary Care Provider Active Jorge Stover MD Emergency Provider Active Dr. Juve Garcia MD Admit Provider, Other Provider A ctive Dr. Juve Lan MD Attending Provider, Other Prov ider Active Dr. Renzo Jeffrey MD Other Provider Active Dr. North Mishra DO Other Provider Active Dr. Ian Coats MD Other Provider Active Dr. Carter Richmond MD Other Provider Active aNn Blackman FAMILY DAY CARE PROVIDER, FAMILY DAY CARE PROVIDER-C Other Provider Active Dr. Tory Sosa DO Other Provider Active Dr. Preet Choudhury MD Other Provider Active Team Status: Active Member Role Status Dates Dr. Allan Rosario MD Primary Care Provider Active Jorge Stover MD Emergency Provider Active Dr. Juve Garcia MD Admit Provider, Other Provider A ctive Dr. Juve Lan MD Other Provider Active Dr. Renzo Jeffrey MD Other Provider Active Dr. North Mishra , Other Provider Active Dr. Ian Coats MD Other Provider Active Dr. Carter Richmond MD Other Provider Active Nan Blackman FAMILY DAY CARE PROVIDER, FAMILY DAY CARE PROVIDER-C Other Provider Active Dr. Tory Sosa DO Attending Provider, Other Provide r Active Dr. Preet Choudhury MD Other Provider Active Team Status: Inactive Member Role Status Dates Dr. Allan Rosario MD Primary Care Provider, Referr ing Provider Active Lois Hines FAMILY DAY CARE PROVIDER, FAMILY DAY CARE PROVIDER-C Attending Provider Active Team Status: Inactive Member Role Status Dates Dr. Allan Rosario MD Primary Care Provider, Referr ing Provider Active Ruma Oreilly FAMILY DAY CARE PROVIDER, FAMILY DAY CARE PROVIDER-C Attending Provider Active Team Status: Inactive Member Role Status Dates Dr. Allan Rosario MD Primary Care Provider, Referr ing Provider Active Dr. Benito Patel MD Attending Provider Active Team Status: Inactive Member Role Status Dates Dr. Allan Rosario MD Primary Care Provider Active Marvin Hagen FAMILY DAY CARE PROVIDER, FAMILY DAY CARE PROVIDER-C Attending Provider Active Team Status: Inactive Member Role Status Dates Dr. Allan Rosario MD Primary Care Provider Active Jorge Stover MD Emergency Provider Active Dr. Juve Garcia MD Admit Provider, Other Provider A ctive Dr. Juve Lan MD Other Provider Active Dr. Renzo Jeffrey MD Other Provider Active Dr. North Mishra , Other Provider Active Dr. Ian Coats MD Other Provider Active Dr. Carter Richmond MD Other Provider Active Nan Blackman FAMILY DAY CARE PROVIDER, FAMILY DAY CARE PROVIDER-C Other Provider Active Dr. Tory Sosa DO Attending Provider Active Dr. Preet Choudhury MD Other Provider Active Team Status: Inactive Member Role Status Dates Dr. Allan Rosario MD Primary Care Provider Active Lois Hines FAMILY DAY CARE PROVIDER, FAMILY DAY CARE PROVIDER-C Attending Provider Active Team Status: Inactive Member Role Status Dates Dr. Allan Rosario MD Primary Care Provider Active Lois Hines FAMILY DAY CARE PROVIDER, FAMILY DAY CARE PROVIDER-C Attending Provider, Referring P margie Active Team Status: Inactive Member Role Status Dates Dr. Allan Rosario MD Primary Care Provider Active Dr. Benito Patel MD Attending Provider Active Team Status: Active Member Role Status Dates Dr. Allan Rosario MD Primary Care Provider Active Ruma Oreilly FAMILY DAY CARE PROVIDER, FAMILY DAY CARE PROVIDER-C Attending Provider, Referrin g Provider Active Team Status: Active Member Role Status Dates Dr. Allan Rosario MD Primary Care Provider Active Ruma Oreilly FAMILY DAY CARE PROVIDER, FAMILY DAY CARE PROVIDER-C Attending Provider Active Team Status: Inactive Member Role Status Dates Dr. Allan Rosario MD Primary Care Provider Active Rumaatilio Oreilly FAMILY DAY CARE PROVIDER, FAMILY DAY CARE PROVIDER-C Attending Provider, Referrin g Provider Active Team Status: Inactive Member Role Status Dates Dr. Allan Rosario MD Primary Care Provider Active Ruma Oreilly FAMILY DAY CARE PROVIDER, FAMILY DAY CARE PROVIDER-C Attending Provider Active Team Status: Active Member Role Status Dates Dr. Allan Rosario MD Primary Care Provider, Referr ing Provider Active Dr. Yoshi Reyes DO Attending Provider, Other Prov ider Active Team Status: Inactive Member Role Status Dates Dr. Allan Rosario MD Primary Care Provider, Referr ing Provider Active Dr. Yoshi Reyes DO Attending Provider Active Team Status: Inactive Member Role Status Dates Dr. Allan Rosario MD Primary Care Provider, Referr ing Provider Active Marvin Hagen FAMILY DAY CARE PROVIDER, FAMILY DAY CARE PROVIDER-C Attending Provider Active Team Status: Inactive Member Role Status Dates Dr. Allan Rosario MD Primary Care Provider Active Dr. Eugene Foreman MD Attending Provider, Referr ing Provider Active Atmospheric Sciences Professor Relationship Specialty Start Date End Date Allan Rosario MD [address] [place], [place] [address] PCP - General Family Medicine 10/18/19 Atmospheric Sciences Professor Relationship Specialty Start Date End Date Allan Rosario MD [address] [place], [place] [id number] PCP - General Family Medicine 10/18/19 Atmospheric Sciences Professor Relationship Specialty Start Date End Date Allan Rosario MD [address] [place] [address] PCP - General Family Medicine 10/18/19 Atmospheric Sciences Professor Relationship Specialty Start Date End Date Allan Rosario MD [address] [place] [address] PCP - General Family Medicine 10/18/19 Atmospheric Sciences Professor Relationship Specialty Start Date End Date Allan Rosario MD [address] [place] [address] PCP - General Family Medicine 10/18/19 Atmospheric Sciences Professor Relationship Specialty Start Date End Date Allan Rosario MD [address] [place] [address] PCP - General Family Medicine 10/18/19 Team Status: Inactive Member Role Status Dates Dr. Allan Rosario MD Primary Care Provider Active Edel Botello PA, PA Attending Provider, Referr ing Provider Active Atmospheric Sciences Professor Relationship Specialty Start Date End Date Allan Rosario MD [address] [place] [address] PCP - General Family Medicine 10/18/19 Atmospheric Sciences Professor Relationship Specialty Start Date End Date Allan Rosario MD [address] [place] [address] PCP - General Family Medicine 10/18/19 Atmospheric Sciences Professor Relationship Specialty Start Date End Date Allan Rosario MD [address] [place] [address] PCP - General Family Medicine 10/18/19 Atmospheric Sciences Professor Relationship Specialty Start Date End Date Allan Rosario MD [address] [place] [address] PCP - General Family Medicine 10/18/19 Atmospheric Sciences Professor Relationship Specialty Start Date End Date Allan Rosario MD [address] [place] [address] PCP - General Family Medicine 10/18/19 Atmospheric Sciences Professor Relationship Specialty Start Date End Date Allan Rosario MD [address] [place] [address] PCP - General Family Medicine 10/18/19 Atmospheric Sciences Professor Relationship Specialty Start Date End Date Allan Rosario MD [address] [place] [address] PCP - General Family Medicine 10/18/19 Marina Hudson, HEALTH INFORMATICS SPECIALIST.[employer] [address] [place] [address] [employer] Family [facility] 03/26/24 Kamari Melendez APRN.[employer] [address] [place] [address] [employer]er [employer] Family Medicine 04/04/24 Atmospheric Sciences Professor Relationship Specialty Start Date End Date Allan Rosario MD [address] [place] [address] PCP - General Family Medicine 10/18/19 Marina Hudson, HEALTH INFORMATICS SPECIALIST.[employer] [address] [place] [address] [facility]er [facility] 03/26/24 Kamari Melendez APRN.[employer] [address] [place] [address] [facility] 04/04/24 Atmospheric Sciences Professor Relationship Specialty Start Date End Date Allan Rosario MD [address] [place] [address] PCP - General Family Medicine 10/18/19 Marina Hudson APRN.[employer]ADER [address] [place] [address] Formerly [facility] 03/26/24 Kamari Melendez APRN.[employer] [address] [place] [address] Formerly [facility] 04/04/24 Atmospheric Sciences Professor Relationship Specialty Start Date End Date Allan Rosario MD [address] [place] [address] PCP - General Family Medicine 10/18/19 Marina Hudson APRN.[employer] [address] [place] [address] Formerly [facility] 03/26/24 Kamari Melendez APRN.[employer]ER [address] [place] [address] Formerly [facility] 04/04/24 Team Status: Inactive Member Role Status Dates Dr. Allan Rosario MD Primary Care Provider Active Start: March 20, 2024 End: March 20, 2024 Dr. Allan Rosario MD Referring Provider Active Start: March 20, 2024 End: March 20, 2024 Marvin H Roof FAMILY DAY CARE PROVIDER, FAMILY DAY CARE PROVIDER-C Attending Provider Active S tart: March 20, 2024 End: March 20, 2024 Team Status: Inactive Member Role Status Dates Dr. Allan Rosario MD Primary Care Provider Active Start: July 06, 2024 End: July 06, 2024 Dr. Eugene Foreman MD Attending Provider Active Start: July 06, 2024 End: July 06, 2024 Dr. Eugene Foreman MD Referring Provider Active Start: July 06, 2024 End: July 06, 2024 Atmospheric Sciences Professor Relationship Specialty Start Date End Date Allan Rosario MD [address] [place] [place] [address] PCP - General Family Medicine 10/18/19 Marina Hudson, HEALTH INFORMATICS SPECIALIST.[employer]ER [address] [place] [address] [employer] Family Medicine 03/26/24 Kamari Melendez HEALTH INFORMATICS SPECIALIST.[employer] [address] [place] [address] [employer] Family [facility] 04/04/24 Atmospheric Sciences Professor Relationship Specialty Start Date End Date Allan Rosario MD [address] [place] [address] PCP - General Family Medicine 10/18/19 Kamari Melendez HEALTH INFORMATICS SPECIALIST.[employer] [address] [place] [address] [employer] Family Medicine 04/04/24 Atmospheric Sciences Professor Relationship Specialty Start Date End Date Allan Rosario MD [address] [place] [place] [address] PCP - General Family Medicine 10/18/19 Kamari Melendez HEALTH INFORMATICS SPECIALIST.[employer] [address] [place] [address] [employer] Family Medicine 04/04/24 Team Status: Active Member Role/Relationship Status Dates Dr. Allan Rosario MD Primary Care Provider Active Team Status: Inactive Member Role/Relationship Status Dates Dr. Allan Rosario MD Primary Care Provider Active Start: December 14, 2024 End: December 14, 2024 Dr. Allan Rosario MD Referring Provider Active Start: December 14, 2024 End: December 14, 2024 Lois Hines FAMILY DAY CARE PROVIDER, FAMILY DAY CARE PROVIDER-C Attending Provider Active Start: December 14, 2024 End: December 14, 2024 Team Status: Inactive Member Role/Relationship Status Dates Dr. Allan Rosario MD Primary Care Provider Active Start: December 14, 2024 End: December 14, 2024 Lois Hines FAMILY DAY CARE PROVIDER, FAMILY DAY CARE PROVIDER-C Attending Provider Active Start: December 14, 2024 End: December 14, 2024 Lois Hines NP, FAMILY DAY CARE PROVIDER-C Referring Provider Active Start: December 14, 2024 End: December 14, 2024 Reason for Visit (unrecogniz ed section and content) Reason Comments F/U 3 months Reason Comments 07-14-2021 Colon EGD [place] Reason Comments Procedure Follow Up EGD and colonoscopy follow up Specialty Diagnoses / Procedures Referred By Contyulissa t Referred To Contact CT IMAGING Diagnoses Lung nodules Procedures CT CHEST WO IVCON CAT SCAN OF CHEST Al, BUZZ Benites.CR[employer]HET [employer]ADER [address] [place] [address] Ct Imaging Referral ID Status Reason Start Date Expiration Date V isits Requested Visits Authorized [id number] Closed Auto-Generate d Referral 09/14/2021 04/16/2022 1 1 Reason Comments Results Reason Comments Results Reason Comments 6 Month Exam Reason Comments Med Change Request Reason Comments Medication Problem allergy alert Reason Onset Date Comments Transition Of Care 02/05/2022 [facility] discharge Reason Comments Referral Request Reason Comments Clinical Update Reason Comments Hospital F/U 14 day TCM Reason Onset Date Comments Refill Request 04/08/2022 Reason Comments Follow Up CPAP follow up Reason Onset Date Comments Refill Request 09/28/2022 Reason Onset Date Comments Refill Request 11/24/2022 Reason Comments Forms BMV Reason Onset Date Comments Refill Request 03/22/2023 Reason Comments F/U 6 Month Reason Comments Forms [employer] Reason Onset Date Comments Refill Request 01/08/2024 Reason Comments F/U 1 month Reason Comments order form Reason Onset Date Comments Refill Request 05/09/2024 Reason Comments Insurance Authorization Reason Onset Date Comments Refill Request 07/08/2024 Reason Comments Rash Rash on left wrist x 1 week Reason Onset Date Comments Shingles 09/13/2024 VZV+ Reason Onset Date Comments Refill Request 12/27/2024 FOR RECORDS PERTAINING TO PATIENTS WHO ARE OR HAVE BEEN ENROLLED IN A CHEMICAL DEPENDENCY/SUBSTANCEABUSE PROGRAM, SOME INFORMATION MAY BE OMITTED. This clinical summary was aggregated from multiple sources. Caution should be exercised in using it in the provision of clinical care. This summary normalizes information from multiple sources, and as a consequence, information in this document may materially change the coding, format and clinical context of patient data. In addition, data may be omitted in some cases. CLINICAL DECISIONS SHOULD BE BASED ON THE PRIMARY CLINICAL RECORDS. [facility] [employer] provides no warranty or guarantee of the accuracy or completeness of information in this document.
[2024-12-28 08:19] LABS: Anion Gap 14 (5-15); BUN 21 mg/dL (4-19); BUN/Creat Ratio 8.9 RATIO (10-20); Calcium,Total 9.7 mg/dL (7.6-11.0); Carbon Dioxide 23.9 mmol/L (21.0-32.0); Chloride 102 mmol/L (98-108); Glucose 136 mg/dL (70-99); Potassium 4.5 mmol/L (3.3-5.1)
== END | disposition home or self-care (01) ==
PROVIDERS: PCP Family Medicine; Referring Provider Nurse Practitioner Gerontology; Visit Provider Nurse Practitioner Gerontology
DX: N18.32 Chronic kidney disease, stage 3b (principal); I48.0 Paroxysmal atrial fibrillation; Z79.899 Other long term (current) drug therapy
CPT/HCPCS: 36415; 80048; 93225; 93226; 94060; 94726; 94729

== ENCOUNTER 2025-01-17 18:40 | Emergency (ER) | payer MEDICARE, OTHER, SELFPAY ==
[2025-01-17 18:41] VITALS: BP 176/87; PULSE 85; RESP 16; TEMP 36.2; O2SAT 97
--- NOTE | 2025-01-17 21:22 | EDS_ITS ---
HPI History of Present Illness Chief Complaint: Upper Extremity Injury Informant: patient and spouse/S.O. Narrative Narrative: Patient is a 74-year-old male with a history of DM, presenting with erythema and burning sensation in the left arm following phlebotomy 3 weeks ago. - Reports erythema and burning sensation in the left arm following phlebotomy 3 weeks ago. - Noticed erythema and vein protrusion about 1 week after the venipuncture procedure, which has progressively extended distally. - Describes a burning sensation in the arm, particularly in the area of erythema. - Denies fever. - Denies use of anticoagulants. - Takes daily low-dose aspirin. - Recent Holter monitor placement for 2 days due to tachycardia when lying on the left side. [facility] Medical History Wears hearing aid Wears glasses Cancer Alcohol use Thyroid disease Arthritis High cholesterol Back pain History of hiatal hernia History of diverticulitis Gastric reflux Non-smoker CPAP (continuous positive airway pressure) dependence Sleep apnea Shortness of breath on exertion History of pain when walking History of edema History of echocardiogram History of stress test Cardiology follow-up encounter History of heart attack History of CHF (congestive heart failure) Central sleep apnea BPPV (benign paroxysmal positional vertigo) Bladder cancer Anxiety History of ischemic cardiomyopathy Atherosclerotic heart disease of [place] coronary artery without angina pectoris Paroxysmal atrial fibrillation with RVR Atrial fibrillation HLD (hyperlipidemia) CAD (coronary artery disease) History of left heart catheterization (LHC) (~10/22/20) Rheumatoid arthritis Restless leg syndrome Pulmonary nodules PRAKASH (obstructive sleep apnea) Myocardial infarction Chronic insomnia Hypertension Fibromyalgia Diverticulosis Diabetes BPH (benign prostatic hyperplasia) AAA (abdominal aortic aneurysm) Thyroid disease Home Medications ?Medication ?Instructions ?Recorded ?Last Taken ?Type aspirin 81 mg tablet 81 mg PO DAILY 10/20/20 Unkn own History gabapentin 300 mg capsule 600 mg PO QHS nerve pain 08/07 Unknown History losartan 100 mg tablet 150 mg PO DAILY blood pressu re 10/20/20 Unknown History pantoprazole 40 mg tablet,delayed 40 mg PO DAILY reflu x 10/20/20 Unknown History release cholecalciferol (vitamin D3) 125 125 mcg PO DAILY 02/19 Unknown History mcg (5,000 unit) tablet glipizide 10 mg tablet, extended 10 mg PO DAILY Unknown History release 24 hr cyanocobalamin (vitamin B-12) 2,000 mcg PO DAILY 09/30 Unknown History 1,000 mcg tablet (Vitamin B-12) metformin 1,000 mg tablet 1,000 mg PO DAILY 09/30/21 U nknown History polyethylene glycol 3350 17 17 g PO DAILY 09/30/21 Unk nown History gram/dose oral powder (Miralax) wheat dextrin 3 gram/3.5 gram oral 1 packet PO DAILY 0 09/30/21 Unknown History powder packet (Benefiber Clear Sugar Free(dextrin)) amlodipine 10 mg tablet 10 mg PO DAILY #30 tabs 01/17 01/08 Unknown Rx isosorbide mononitrate 30 mg 30 mg PO BID 03/11/22 History tablet,extended release 24 hr amiodarone 200 mg tablet 100 mg PO QHS 06/24/22 Unkno wn History acetaminophen 650 mg 1,300 mg PO QHS 02/16/24 Unk nown History tablet,extended release (Tylenol Arthritis Pain) simethicone 125 mg capsule (Gas-X 125 mg PO ONCE PRN 1 05/21/23 Unknown History Extra Strength) thyroid (pork) 60 mg tablet See Rx Instructions PO ISMAEL LY 03/20/24 Unknown History (Sabina Thyroid) thyroid carvedilol 6.25 mg tablet 6.25 mg PO BID #180 tabs 11/10 Unknown Rx furosemide 40 mg tablet 60 mg PO BID 12/14/24 Unknow n History cephalexin 500 mg capsule 500 mg PO TID #21 CAPSULES 1 Unknown Rx Allergy/AdvReac Type Severity Reaction Status Date / Time [id number]-OCW-MvM Reductase Allergy Severe Severe Verified 01/17/25 18:40 Inhibitor (Ihlgims-Skx-Hoy mouth sores Reductase Inhibitor) hydrochlorothiazide Allergy Intermediate Other Verified 01/17/25 18:40 Sulfa (Sulfonamide Allergy Unknown Unknown Verified 01/17/25 18:40 Antibiotics) levothyroxine sodium (From Allergy mouth Verified 01/17/25 18:40 Synthroid) sores,diarrhea,stomach cramps fish oil AdvReac Severe Mouth Sores Verified 01/17/25 18:40 apixaban (From Eliquis) AdvReac Intermediate blood in Verified 01/17/25 18:40 stools morphine AdvReac Nausea/Vom/ Verified 01/17/25 18:40 Diarrhea Family History Brother Diabetes CAD (coronary artery disease) Alzheimer disease Celiac disease Hypertension Heart disease Brother CAD (coronary artery disease) Other Anemia Atherosclerotic heart disease of [place] coronary artery without angina pectoris Atrial fibrillation Dyspnea on exertion Edema History of ischemic cardiomyopathy On amiodarone therapy Surgical History History of cardiac catheterization History of coronary artery stent placement History of carpal tunnel release of both wrists History of transurethral resection of prostate S/P CABG (coronary artery bypass graft) S/P PTCA (percutaneous transluminal coronary angioplasty) Hx of total knee replacement Hx of repair of rotator cuff Hx of shoulder replacement Hx of cholecystectomy Hx of CABG History of trigger finger Hx of lipoma Hx of elbow surgery History of carpal tunnel release Hx of transurethral resection of prostate Hx of bladder cancer Social History Smoking Status: Never smoker second hand exposure: No alcohol intake: never substance use type: does not use caffeine: Yes Type: coffee Number of servings: 2 what type of physical activity do you participate in: none frequency: does not exercise seatbelt use: always ROS ROS ED Constitutional Constitutional ED: Denies chills or fever(s) Musculoskeletal Musculoskeletal: Reports extremity pain; Denies neck pain Integumentary Reports rash; Denies Abrasions or wounds Neurologic Neurologic: Denies paresthesias or weakness EXAM Physical Exam Const Vital Signs: 01/17/25 18:41 Temperature 97.1 F L Temperature Source Temporal Pulse Rate 85 Respiratory Rate 16 Blood Pressure 176/87 H Blood Pressure Mean 116 Pulse Ox 97 Oxygen Delivery Method Room Air Positive well nourished and well developed General Appearance ED: well developed and NAD Neck full ROM and supple Back/Spine normal ROM and normal to inspection Extremity Extremity Narrative: Erythema and tenderness over vein in arm, vein visibly protruding and extending down arm. there is a palpable superficial cord emanating from the antecubital fossa down the radial aspect of the forearm to the wrist, but not into the hand. There is some overlying erythema and mild tenderness in most of the affected area, though not all of it. There is no lymphangitis or proximal extension beyond the antecubital fossa. Range of motion of all joints in the left upper extremity is intact, with no swelling. All compartments are soft and non-distended. Neuro oriented x3, no focal motor deficits and no sensory deficits noted Sensorium / Orientation: alert Psych mental status grossly normal and thought process normal Skin no wounds Rashes: no rashes MDM MDM MDM Narrative Medical decision making narrative: My suspicion is that this represents a superficial thrombophlebitis related to his blood draw. The patient states he did not have an IV in this extremity. He is diabetic. Because he presents in the evening, when duplex vascular ultrasound is not available, I believe it is reasonable to instruct him to use warm compresses and to begin empirical treatment for possible cellulitis with cephalexin, which we have initiated. He is not anticoagulated and has no history of DVT. He already takes baby aspirin daily, so I will not change that regimen. I will arrange an outpatient duplex ultrasound of the left upper extremity to be performed within the next several days, and I have advised him to follow up with his doctor. Discharge Plan Triage Chief Complaint: Upper Extremity Injury ED Provider: Kolton Harper Dx/Rx/DC Orders Clinical Impression: Superficial thrombophlebitis of left upper extremity, CKD stage G3b/A1, GFR 30- 44 and albumin creatinine ratio <30 mg/g Instructions: ED Thrombophlebitis, Superficial Prescriptions: New cephalexin 500 mg capsule 500 mg PO TID Qty: 21 0RF No Action glipizide 10 mg tablet extended release 24hr 10 mg PO DAILY cholecalciferol (vitamin D3) 125 mcg (5,000 unit) tablet 125 mcg PO DAILY cyanocobalamin (vitamin B-12) [Vitamin B-12] 1,000 mcg tablet 2,000 mcg PO DAILY polyethylene glycol 3350 [Miralax] 17 gram/dose powder 17 g PO DAILY Benefiber Clear SF (dextrin) 3 gram/3.5 gram powder in packet 1 packet PO DAILY Rx Instructions: mix into at least 4 oz water or juice before administering metformin 1,000 mg tablet 1,000 mg PO DAILY isosorbide mononitrate 30 mg tablet extended release 24 hr 30 mg PO BID simethicone [Gas-X Extra Strength] 125 mg capsule 125 mg PO ONCE PRN furosemide 40 mg tablet 60 mg PO BID acetaminophen [Tylenol Arthritis Pain] 650 mg tablet extended release 1,300 mg PO QHS pantoprazole 40 mg Tablet,Delayed Release (Dr/Ec) 40 mg PO DAILY gabapentin 300 mg Capsule 600 mg PO QHS aspirin 81 mg Tablet 81 mg PO DAILY losartan 100 mg Tablet 150 mg PO DAILY thyroid (pork) [Sabina Thyroid] 60 mg tablet See Rx Instructions PO DAILY Rx Instructions: 120 mg 5 days a week & 60 mg tue and angela orally daily; amlodipine 10 mg Tablet 10 mg PO DAILY Qty: 30 0RF amiodarone 200 mg tablet 100 mg PO QHS carvedilol 6.25 mg tablet 6.25 mg PO BID Qty: 180 3RF Rx Instructions: must administer with a meal/food Other Ambulatory Orders: Venous Duplex US, Unilateral (Stat) Timeframe: 3 Days Facility: [facility] - Location: [facility] Ordered By: Dr. Kolton Harper Primary Care Provider: Elver Rosario Referrals: Elver Rosario MD [Primary Care Provider, Family Practice] - As soon as possible Referral Note: to be seen after ultrasound obtained Activity Restrictions/Additional Instructions: - Take the prescribed cephalexin for the possible skin infection in your left arm as directed. - Apply warm compresses to the affected area three times a day. - Continue your daily baby aspirin as usual. - Schedule and obtain an outpatient duplex ultrasound of your left arm veins within the next several days. - Follow up with your doctor after the ultrasound results. Print Language: Guamanian Disposition Disposition: Home, Self Care
[2025-01-17 21:44] VITALS: BP 158/88; PULSE 80; RESP 16; TEMP 36.7; O2SAT 97
== END 2025-01-17 21:45 | disposition home or self-care (01) ==
LOC: ED 21:24
PROVIDERS: Emergency Provider Emergency Medicine; PCP Family Medicine; Visit Provider Emergency Medicine
DX: I80.8 Phlebitis and thrombophlebitis of other sites (principal); E11.22 Type 2 diabetes mellitus with diabetic chronic kidney disease; N18.32 Chronic kidney disease, stage 3b; I25.10 Atherosclerotic heart disease of native coronary artery without angina pectoris; Z79.82 Long term (current) use of aspirin; Z83.3 Family history of diabetes mellitus; E78.00 Pure hypercholesterolemia, unspecified; Z99.89 Dependence on other enabling machines and devices; G47.33 Obstructive sleep apnea (adult) (pediatric); I25.2 Old myocardial infarction; I12.9 Hypertensive chronic kidney disease with stage 1 through stage 4 chronic kidney disease, or unspecified chronic kidney disease; Z95.5 Presence of coronary angioplasty implant and graft; Z95.1 Presence of aortocoronary bypass graft; Z85.51 Personal history of malignant neoplasm of bladder; Z90.49 Acquired absence of other specified parts of digestive tract
CPT/HCPCS: 99282

== ENCOUNTER → 2025-01-19 | Outpatient (CLI) | payer MEDICARE, OTHER, SELFPAY ==
--- NOTE | 2025-01-19 08:38 | VDUE_ITS ---
Reason For Study Reason For Study: LUE Pain andSwelling Left Proximal Left jugular vein is spontaneous, widely patent, phasic, with no intraluminal echogenicity noted. Left subclavian vein is spontaneous, widely patent, phasic, with no intraluminal echogenicity noted. Left Arm Left axillary vein is spontaneous, patent, phasic, competent, compressible and demonstrates augmentation. Left brachial vein is compressible. Cephalic Vein is dilated and NONCOMPRESSIBLE wrist to AC. finding is consistent with Acute Superficial Vein Thrombosis. Remainder of vessel Bicep to SOUMYA appears compressible. Left basilic vein is compressible. Left Lower Arm Left radial vein is compressible. Left ulnar vein is compressible. Procedure This was a unilateral left upper extremity venous doppler examination. Exam performed in department. A preliminary report was called and/or faxed to Dr. Elver Higginbotham office. The exam was diagnostic. VL/Venous Duplex US, Unilateral Interpretation Summary Deep veins of the left upper extremity are patent and compressible segmentally. There is no evidence of deep vein thrombosis. Acute superficial thrombophlebitis is noted in the left cephalic ve in in the forearm from the wrist to the antecubital space. The left cephalic vein is patent and compressible more proxi fausto. The left basilic vein is patent and compressible. Ordering Physician: Kolton Harper Referring Physician: Elver Rosario Performed By: Tre Bernabe, RVT ???
== END | disposition home or self-care (01) ==
LOC: CVS 08:37
PROVIDERS: PCP Family Medicine; Referring Provider Emergency Medicine; Visit Provider Emergency Medicine
DX: I80.8 Phlebitis and thrombophlebitis of other sites (principal)
CPT/HCPCS: 93971